=== PATIENT | female | born 1945 | race Caucasian/White ===

== ENCOUNTER 2017-06-03 14:39 | Inpatient (IN) | payer OTHER ==
[~2017-06-03] VITALS: Ht 157.5 cm; Wt 71.1 kg
[~2017-06-03 14:39] MED LIST: ACET325T96 PO; ALBUAER19 INH; ASPI81TA28 PO; CRS/10 PO; CYM/30 PO; FERR325T18 PO; HYDR50CA2 PO; INSDGI SC; KPP/1000 PO; LAMO100T16 PO; LAMO200T38 PO; LEVO25TA5 PO; LISI-461 PO; MAGN400T6 PO; MULT-506 PO; PRLSR20 PO; RISP0.5T3 PO; SITA50TA9 PO
[2017-06-03] MEDS ORDERED: INSDGIPEN SC (16:36)
[2017-06-03] MEDS ORDERED: SODIUM CHLORIDE 0.9% 1000ML 1,000 ML IV STA (16:51)
[2017-06-03 17:42] LABS: BASO % 1.1 %; BASO ABS # 0.03 K/uL (0-0.2); EOS % 2.5 %; HEMATOCRIT 26.7 % (37-47); IG% 0.7 %; LYMPH % 19.8 %; LYMPH ABS # 0.56 K/uL (1.2-3.4); MEAN CELL VOLUME 82.9 fL (80-100); MEAN CORPUSCULAR HEMOGLOBIN 24.8 pg (25-34); MEAN PLATELET VOLUME 9.6 fL (7.4-10.4); MONO % 7.8 %; NEUT % 68.1 %; PLATELET COUNT 137 K/uL (130-400); RED BLOOD COUNT 3.22 M/uL (4.2-5.4); WHITE BLOOD COUNT 2.83 K/uL (4.8-10.8)
--- NOTE | 2017-06-03 17:44 | DIAGNOSTIC IMAGING REPORT ---
CHEST ONE VIEW PORTABLE CLINICAL HISTORY: GI bleed. COMPARISON STUDY: Chest radiograph June 08, 2014. FINDINGS: 2 screws within the proximal right humerus are noted. There is no pneumothorax or pleural effusion. Cardiac size is normal. There is no evidence of pulmonary edema. Mild left lower lung opacities favor atelectasis. There are old bilateral rib fractures. IMPRESSION: Hazy left basilar opacity. Atelectasis or artifact is favored although consolidation could appear similar. Short-term follow-up PA and lateral chest radiographs in one month are recommended. Electronically signed by: Pelon Su M.D. 06/03/2017 5:43 PM Dictated Date/Time: 06/03/2017 5:41 PM
[2017-06-03 17:54] LABS: INR 1.1 (0.9-1.1); PROTHROMBIN TIME (PATIENT) 12.3 SECONDS (9.0-12.0)
[2017-06-03 18:14] LABS: ALT/SGPT 59 U/L (12-78); AST/SGOT 105 U/L (15-37); BLOOD UREA NITROGEN 6 mg/dl (7-18); BUN/CREATININE RATIO 6.9 (10-20); CALCIUM 8.6 mg/dl (8.5-10.1); CARBON DIOXIDE 26 mmol/L (21-32); CHLORIDE 102 mmol/L (98-107); GLUCOSE 151 mg/dl (70-99); SODIUM 138 mmol/L (136-145)
[2017-06-03 18:19] LABS: ALKALINE PHOSPHATASE 244 U/L (45-117); CKMB/CK RATIO 0.2 (0-3.0)
[2017-06-03 18:23] LABS: COMPLETE YES; HYPOCHROMIA PRESENT; LARGE PLATELETS 1+; MICROCYTOSIS PRESENT; POLYCHROMASIA 1+
--- NOTE | 2017-06-03 20:16 | EMERGENCY ROOM VISIT NOTE ---
History Report prepared by Sam: Paola Daley Under the Supervision of: Dr. Harsha Cason D.O. First contact with patient: 16:47 Chief Complaint: ALTERED MENTAL STATUS Stated Complaint: CAN'T WALK History of Present Illness The patient is a 71 year old female who presents to the Emergency Room with complaints of persistent fatigue for the past month. The patient's family reports that the patient has been increasingly fatigued over the past month. They note that the patient has a history of anemia. The patient's family reports that the patient has appeared paler as well. They note that the patient has been sleeping all day and every day. The patient's family states that the patient was scheduled for an appointment with her PCP today and was sent to the emergency department for further evaluation. They deny the patient seeing her PCP today, noting that they were just instructed to bring the patient to the emergency department. The patient's family notes that the patient has a history of seizures. The patient denies any headache, chest pain , shortness of breath, or abdominal pain. She denies any recent fall or trauma. The patient's family notes that the patient has had a previous iron transfusion. Source of History: patient, family Onset: past month Position: other (global) Quality: other (fatigue) Timing: other (persistent) Associated Symptoms: No headache, No chest pain, No SOB, No abdominal pain Note: Associated symptoms: sleeping all day, pale Review of Systems See HPI for pertinent positives & negatives. A total of 10 systems reviewed and were otherwise negative. Past Medical & Surgical Medical Problems: (1) Anemia (2) Bipolar (3) Cavernoma (4) DM (diabetes mellitus) (5) Dyslipidemia (6) Hyperthyroidism (7) Intracranial hemorrhage (8) Rib fractures (9) Seizure (10) Seizure disorder Family History FHx: diabetes FATHER FHx: hypertension FATHER FHx: myocardial infarction MOTHER FHx: stroke FATHER Social History Smoking Status: Former Smoker Alcohol Use: none Drug Use: none Marital Status: Housing Status: lives with significant other Occupation Status: retired Current/Historical Medications Scheduled Duloxetine HCl (Cymbalta), 30 MG PO QAM Ferrous Gluconate (Ferrous Gluconate), 324 MG PO TID Hydroxyzine Pamoate (Vistaril), 50 MG PO HS Insulin Glargine (Lantus Solostar), 50 UNITS SC QPM Lamotrigine (Lamictal), 200 MG PO HS Levetiracetam (Keppra), 1,000 MG PO BID Levothyroxine Sodium (Levothyroxine Sodium), 25 MCG PO QAM Lisinopril (Zestril), 10 MG PO QAM Magnesium Oxide (Mag-Ox), 400 MG PO DAILY Multivitamin (Multivitamin), 1 TAB PO QAM Omeprazole (Prilosec), 20 MG PO BID Risperidone (Risperdal), 0.5 MG PO BID Rosuvastatin Calcium (Crestor), 10 MG PO QAM Sitagliptin-Metformin Hcl (Janumet), 1 TAB PO BID Scheduled PRN Acetaminophen Tab (Tylenol), 650 MG PO for Pain Allergies Coded Allergies: Aspirin (Verified Allergy, Intermediate, INTESTINAL BLEEDING AND HIVES, ) Prednisone (Verified Allergy, Intermediate, HIVES; TREMORS, 04/29/16) Citalopram (Verified Allergy, Unknown, 04/29/16) Lidocaine (Verified Allergy, Unknown, edema face and lips, 04/29/16) Metoclopramide (Verified Allergy, Unknown, ?, 04/29/16) Onion (Verified Allergy, Unknown, 04/29/16) Simethicone (Verified Allergy, Unknown, ?, 06/08/14) Simvastatin (Verified Allergy, Unknown, ., 04/29/16) Valproic Acid and Related (Verified Allergy, Unknown, ., 04/29/16) Magnesium Citrate (Verified Adverse Reaction, Unknown, NAUSEA, 06/08/14) Physical Exam Vital Signs Date Time Temp Pulse Resp B/P (MAP) Pulse Ox O2 Delivery O2 Flow Rate FiO2 06/03/17 19:57 103 18 113/45 94 Room Air 06/03/17 18:39 80 16 117/51 97 Room Air 06/03/17 18:15 82 16 117/59 98 Room Air 06/03/17 17:28 83 18 105/54 97 Room Air 06/03/17 16:41 88 06/03/17 16:26 84 18 121/66 95 Room Air 06/03/17 14:47 36.8 97 20 94/53 98 Room Air Physical Exam CONSTITUTIONAL/VITAL SIGNS: Reviewed / noted above. GENERAL: Non-toxic in appearance. INTEGUMENTARY: Pale. Warm, dry. HEAD: Normocephalic. EYES: without scleral icterus or trauma. ENT/OROPHARYNX: Mucous membranes are dry. LYMPHADENOPATHY/NECK: Is supple without lymphadenopathy or meningismus. RESPIRATORY: Lungs clear and equal. CARDIOVASCULAR: Regular rate and rhythm. GI/ABDOMEN: Soft and nontender. No organomegaly or pulsatile mass. No rebound or guarding. Normal bowel sounds. RECTAL: Guaiac positive brown stool. EXTREMITIES: Warm and well perfused. BACK: No CVA tenderness. NEUROLOGICAL: Intact without focal deficits. PSYCHIATRIC: normal affect. MUSCULOSKELETAL: Normally developed with good muscle tone. Medical Decision & Procedures ER Provider Diagnostic Interpretation: X ray results and stated below per my interpretation and radiology interpretation. CHEST ONE VIEW PORTABLE CLINICAL HISTORY: GI bleed. COMPARISON STUDY: Chest radiograph June 08, 2014. FINDINGS: 2 screws within the proximal right humerus are noted. There is no pneumothorax or pleural effusion. Cardiac size is normal. There is no evidence of pulmonary edema. Mild left lower lung opacities favor atelectasis. There are old bilateral rib fractures. IMPRESSION: Hazy left basilar opacity. Atelectasis or artifact is favored although consolidation could appear similar. Short-term follow-up PA and lateral chest radiographs in one month are recommended. Electronically signed by: Pelon Su M.D. 06/03/2017 5:43 PM Dictated Date/Time: 06/03/2017 5:41 PM Laboratory Results 06/03/17 17:29 Red Blood Count 3.22, Mean Corpuscular Volume 82.9, Mean Corpuscular Hemoglobin 24.8, Mean Corpuscular Hemoglobin Concent 30.0, Mean Platelet Volume 9.6, Neutrophils (%) (Auto) 68.1, Lymphocytes (%) (Auto) 19.8, Monocytes (%) (Auto) 7.8, Eosinophils (%) (Auto) 2.5, Basophils (%) (Auto) 1.1, Neutrophils # (Auto) 1.93, Lymphocytes # (Auto) 0.56, Monocytes # (Auto) 0.22, Eosinophils # (Auto) 0.07, Basophils # (Auto) 0.03 06/03/17 17:29 Test 06/03/17 17:29 White Blood Count 2.83 K/uL (4.8-10.8) Red Blood Count 3.22 M/uL (4.2-5.4) Hemoglobin 8.0 g/dL (12.0-16.0) Hematocrit 26.7 % (37-47) Mean Corpuscular Volume 82.9 fL (80-100) Mean Corpuscular Hemoglobin 24.8 pg (25-34) Mean Corpuscular Hemoglobin Concent 30.0 g/dl (32-36) Platelet Count 137 K/uL (130-400) Mean Platelet Volume 9.6 fL (7.4-10.4) Neutrophils (%) (Auto) 68.1 % Lymphocytes (%) (Auto) 19.8 % Monocytes (%) (Auto) 7.8 % Eosinophils (%) (Auto) 2.5 % Basophils (%) (Auto) 1.1 % Neutrophils # (Auto) 1.93 K/uL (1.4-6.5) Lymphocytes # (Auto) 0.56 K/uL (1.2-3.4) Monocytes # (Auto) 0.22 K/uL (0.11-0.59) Eosinophils # (Auto) 0.07 K/uL (0-0.5) Basophils # (Auto) 0.03 K/uL (0-0.2) RDW Standard Deviation 57.1 fL (36.4-46.3) RDW Coefficient of Variation 18.7 % (11.5-14.5) Immature Granulocyte % (Auto) 0.7 % Immature Granulocyte # (Auto) 0.02 K/uL (0.00-0.02) Large Platelets 1+ Polychromasia 1+ Hypochromasia PRESENT Microcytosis PRESENT Prothrombin Time 12.3 SECONDS (9.0-12.0) Prothromb Time International Ratio 1.1 (0.9-1.1) Activated Partial Thromboplast Time 25.4 SECONDS (21.0-31.0) Partial Thromboplastin Ratio 1.0 Anion Gap 10.0 mmol/L (3-11) Estimated GFR () 86.6 Estimated GFR (Non- 74.7 BUN/Creatinine Ratio 6.9 (10-20) Calcium Level 8.6 mg/dl (8.5-10.1) Total Bilirubin 0.9 mg/dl (0.2-1) Direct Bilirubin 0.3 mg/dl (0-0.2) Aspartate Amino Transf (AST/SGOT) 105 U/L (15-37) Alanine Aminotransferase (ALT/SGPT) 59 U/L (12-78) Alkaline Phosphatase 244 U/L (45-117) Total Creatine Kinase 300 U/L (26-192) Creatine Kinase MB 0.6 ng/ml (0.5-3.6) Creatine Kinase MB Ratio 0.2 (0-3.0) Troponin I < 0.015 ng/ml (0-0.045) Total Protein 6.3 gm/dl (6.4-8.2) Albumin 3.3 gm/dl (3.4-5.0) Laboratory results as stated above per my review. Medications Administered Medications (Trade) Dose Ordered Sig/Mauricio Route Start Time Stop Time Status Last Admin Dose Admin Sodium Chloride 1,000 ml @ 200 mls/hr Q5H STAT IV 06/03/17 16:51 06/03/17 21:50 06/03/17 17:29 200 MLS/HR ECG Indication: weakness (fatigue) Rate (beats per minute): 85 Rhythm: normal sinus Findings: no acute ischemic change, no ectopy ED Course 1647: Previous medical records were reviewed. The patient was evaluated in room A9B. A complete history and physical examination was performed. 1650: Ordered Sodium Chloride 1000 ml @ 200 mls/hr IV. 1949: I reevaluated the patient and she is resting comfortably. I discussed the exam findings with her and her family and I discussed the treatment plan. She verbalized complete understanding and agreement. The patient will be evaluated for further treatment. 2006: I discussed the patients case with Christa Blankenship. He will evaluate the patient for further treatment. Medical Decision Differentials include: Acute coronary syndrome, myocardial infarction, CVA, TIA , anemia, infection, pneumonia, UTI, pyelonephritis, poor nutrition, dehydration , electrolyte disturbance, and hypoglycemia. Medication Reconciliation: I attest that I have personally reviewed the patient' s current medication list. Blood pressure Screening: Patient was found to have normal blood pressure on screening and does not require follow-up. This is a 71-year-old female who presents to the ED with a chief complaint of generalized fatigue and tiredness. The family also knows that she appears to be pale. This is somewhat chronic but worsening steadily. The patient's vital signs are normal. She does appear to be pale on exam. She has light brown and guaiac positive stools. Her hemoglobin is 8.0. She does have a history of GI bleeds in the past. An EKG shows a normal sinus rhythm. Troponin is negative. The rest of her blood work was relatively unremarkable. The patient was told the results of the test. She will be seen by the hospital service for inpatient evaluation. Consults Time Called: 1954 Consulting Physician: Christa Blankenship Returned Call: 2006 I discussed the patients case with Christa Blankenship. He will evaluate the patient for further treatment. Impression Primary Impression: Anemia Additional Impression: GI bleed Scribe Attestation The scribe's documentation has been prepared under my direction and personally reviewed by me in its entirety. I confirm that the note above accurately reflects all work, treatment, procedures, and medical decision making performed by me. Departure Information Dispostion Being Evaluated By Hospitalist Referrals No Doctor, Assigned (PCP) Problem Qualifiers
--- NOTE | 2017-06-03 20:42 | History and Physical ---
History & Physical Date & Time of Service: Jun 03, 2017 at 20:42 Chief Complaint: Can't Walk Primary Care Physician: Abhinav Sebastian III, M.D. History of Present Illness Source: patient Patient is a 69 yr old female with PMH of Diabetes, Hypertension,. Bipolar disorder, Seizure Disorder, S/P Subarachnoid hemorrhage, Chronic Anemia, Hypothyroidism and other problems presents with dark colored bloody stools since 2 weeks duration. Patient is a poor historian and no family member available. She reports she has been very tired lately and has been sleeping most of the day. Reports noticing dark colored bloody stools intermittently. She has been on Iron pills but denies taking Aspirin, NSAIDs. Denies any history of fever, chills, abd pain, diarrhea, urinary symptoms, SOB, chest pain , palpitations, cough, dizziness, headache, blurry vision. Patient has guaiac positive stools when tested in ED. Past Medical/Surgical History Medical Problems: (1) Anemia Status: Chronic (2) Bipolar Status: Chronic (3) Cavernoma Status: Chronic (4) DM (diabetes mellitus) Status: Chronic (5) Dyslipidemia Status: Chronic (6) Hyperthyroidism Status: Chronic (7) Intracranial hemorrhage Status: Chronic (8) Rib fractures Status: Chronic (9) Seizure Status: Resolved (10) Seizure disorder Status: Chronic Past Surgical History : Appendectomy Family History FHx: diabetes FATHER FHx: hypertension FATHER FHx: myocardial infarction MOTHER FHx: stroke FATHER Not contributory Social History Smoking Status: Former Smoker (Quit 2 months ago) Alcohol Use: none Drug Use: none Marital Status: Housing status: lives with family Occupational Status: retired Immunizations History of Influenza Vaccine: Yes Influenza Vaccine Date: Sep 02, 2009 History of Tetanus Vaccine?: No History of Pneumococcal: Yes Pneumococcal Date: Sep 02, 2009 History of Hepatitis B Vaccine: No Multi-Drug Resistant Organisms History of MDRO: No Allergies Coded Allergies: Aspirin (Verified Allergy, Intermediate, INTESTINAL BLEEDING AND HIVES, ) Prednisone (Verified Allergy, Intermediate, HIVES; TREMORS, 04/29/16) Citalopram (Verified Allergy, Unknown, 04/29/16) Lidocaine (Verified Allergy, Unknown, edema face and lips, 04/29/16) Metoclopramide (Verified Allergy, Unknown, ?, 04/29/16) Onion (Verified Allergy, Unknown, 04/29/16) Simethicone (Verified Allergy, Unknown, ?, 06/08/14) Simvastatin (Verified Allergy, Unknown, ., 04/29/16) Valproic Acid and Related (Verified Allergy, Unknown, ., 04/29/16) Magnesium Citrate (Verified Adverse Reaction, Unknown, NAUSEA, 06/08/14) Home Medications Scheduled Duloxetine HCl (Cymbalta), 30 MG PO QAM Ferrous Gluconate (Ferrous Gluconate), 324 MG PO TID Hydroxyzine Pamoate (Vistaril), 50 MG PO HS Insulin Glargine (Lantus Solostar), 50 UNITS SC QPM Lamotrigine (Lamictal), 200 MG PO HS Levetiracetam (Keppra), 1,000 MG PO BID Levothyroxine Sodium (Levothyroxine Sodium), 25 MCG PO QAM Lisinopril (Zestril), 10 MG PO QAM Magnesium Oxide (Mag-Ox), 400 MG PO DAILY Multivitamin (Multivitamin), 1 TAB PO QAM Omeprazole (Prilosec), 20 MG PO BID Risperidone (Risperdal), 0.5 MG PO BID Rosuvastatin Calcium (Crestor), 10 MG PO QAM Sitagliptin-Metformin Hcl (Janumet), 1 TAB PO BID Scheduled PRN Acetaminophen Tab (Tylenol), 650 MG PO for Pain Review of Systems See HPI for pertinent positives & negatives. A total of 10 systems reviewed and were otherwise negative. Physical Exam Vital Signs Date Time Temp Pulse Resp B/P (MAP) Pulse Ox O2 Delivery O2 Flow Rate FiO2 06/03/17 19:57 103 18 113/45 94 Room Air 06/03/17 18:39 80 16 117/51 97 Room Air 06/03/17 18:15 82 16 117/59 98 Room Air 06/03/17 17:28 83 18 105/54 97 Room Air 06/03/17 16:41 88 06/03/17 16:26 84 18 121/66 95 Room Air 06/03/17 14:47 36.8 97 20 94/53 98 Room Air General Appearance: WD/WN, no apparent distress Head: normocephalic, atraumatic Eyes: normal inspection, PERRL, + pertinent finding (+Pallor) ENT: normal ENT inspection, hearing grossly normal Neck: supple, trachea midline Respiratory/Chest: chest non-tender, lungs clear, no respiratory distress, no accessory muscle use, + pertinent finding (Mild decreased breath sounds at bases ) Cardiovascular: regular rate, rhythm, no edema, no murmur Abdomen/GI: normal bowel sounds, non tender, soft Back: normal inspection Extremities/Musculoskelatal: normal inspection, no pedal edema 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, alert, oriented x 3, + pertinent finding (Grossly no focal deficits) Skin: normal color, warm/dry, + pallor Diagnostics Laboratory Results Results Past 24 Hours Test 06/03/17 17:29 Range/Units White Blood Count 2.83 4.8-10.8 K/uL Red Blood Count 3.22 4.2-5.4 M/uL Hemoglobin 8.0 12.0-16.0 g/dL Hematocrit 26.7 37-47 % Mean Corpuscular Volume 82.9 80-100 fL Mean Corpuscular Hemoglobin 24.8 25-34 pg Mean Corpuscular Hemoglobin Concent 30.0 32-36 g/dl Platelet Count 137 130-400 K/uL Mean Platelet Volume 9.6 7.4-10.4 fL Neutrophils (%) (Auto) 68.1 % Lymphocytes (%) (Auto) 19.8 % Monocytes (%) (Auto) 7.8 % Eosinophils (%) (Auto) 2.5 % Basophils (%) (Auto) 1.1 % Neutrophils # (Auto) 1.93 1.4-6.5 K/uL Lymphocytes # (Auto) 0.56 1.2-3.4 K/uL Monocytes # (Auto) 0.22 0.11-0.59 K/uL Eosinophils # (Auto) 0.07 0-0.5 K/uL Basophils # (Auto) 0.03 0-0.2 K/uL RDW Standard Deviation 57.1 36.4-46.3 fL RDW Coefficient of Variation 18.7 11.5-14.5 % Immature Granulocyte % (Auto) 0.7 % Immature Granulocyte # (Auto) 0.02 0.00-0.02 K/uL Large Platelets 1+ Polychromasia 1+ Hypochromasia PRESENT Microcytosis PRESENT Prothrombin Time 12.3 9.0-12.0 SECONDS Prothromb Time International Ratio 1.1 0.9-1.1 Activated Partial Thromboplast Time 25.4 21.0-31.0 SECONDS Partial Thromboplastin Ratio 1.0 Sodium Level 138 136-145 mmol/L Potassium Level 4.0 3.5-5.1 mmol/L Chloride Level 102 98-107 mmol/L Carbon Dioxide Level 26 21-32 mmol/L Anion Gap 10.0 3-11 mmol/L Blood Urea Nitrogen 6 7-18 mg/dl Creatinine 0.80 0.60-1.20 mg/dl Estimated GFR () 86.6 Estimated GFR (Non- 74.7 BUN/Creatinine Ratio 6.9 10-20 Random Glucose 151 70-99 mg/dl Calcium Level 8.6 8.5-10.1 mg/dl Total Bilirubin 0.9 0.2-1 mg/dl Direct Bilirubin 0.3 0-0.2 mg/dl Aspartate Amino Transf (AST/SGOT) 105 15-37 U/L Alanine Aminotransferase (ALT/SGPT) 59 12-78 U/L Alkaline Phosphatase 244 45-117 U/L Total Creatine Kinase 300 26-192 U/L Creatine Kinase MB 0.6 0.5-3.6 ng/ml Creatine Kinase MB Ratio 0.2 0-3.0 Troponin I < 0.015 0-0.045 ng/ml Total Protein 6.3 6.4-8.2 gm/dl Albumin 3.3 3.4-5.0 gm/dl Diagnostic Radiology CXR: Hazy left basilar opacity. Atelectasis or artifact is favored although consolidation could appear similar. Short-term follow-up PA and lateral chest radiographs in one month are recommended. EKG EKG:Normal sinus rhythm, No signs of acute ischemia Impression Assessment and Plan Symptomatic Anemia/Melena: H/O gastric ulcers on prior EGDs Hb:8.0 currently. Last Hb in 03/2016: 9.9 Reports dark bloody stools intermittently, tired and has guaiac positive stools Start on IV Protonix BID Npo for now Transfuse 1 unit PRBCs Monitor H&H, Transfuse PRN Will consult GI Check Iron panel, Vitamin B 12 Avoid Aspirin/NSAIDs Hold oral Iron therapy for now Elevated LFTs: Denies any abdominal pain Unclear source; likely meds Hold Crestor Consider Imaging if necessary DM II: Will hold home oral meds Takes 50 units Lantus at bedtime at home Start ISS, Lantus 20 inuts QHS as NPO Hypothyroidism: Continue levothyroxine HTN Stable Plan to resume lisinopril when appropriate Monitor H/O seizure disorder: Continue home meds No acute issues H/O subarachnoid Hemorrhage: No acute issues H/O Bipolar disorder: Stable Continue home meds Vistaril on hold as patient has been sleepy lately DVT Px: SCDs: Re: Evaluating for acute blood loss Code Status: Full code Disposition: Monitor in Tele
[2017-06-03] MEDS ORDERED: ACETAMINOPHEN 325 MG TAB PO PRN (21:15)
[2017-06-03] MEDS ORDERED: ONDANSETRON INJ 2 MG/ML 2 ML VIAL IV PRN (21:15)
[2017-06-03] MEDS ORDERED: DEXTROSE 50% 50 ML SYR IV PRN (21:30)
[2017-06-03] MEDS ORDERED: GLUCOSE 40% GEL 15 GM TUBE PO PRN (21:30)
[2017-06-03] MEDS ORDERED: GLUCOSE 10 TABS/TUBE PO PRN (21:30)
[2017-06-03] MEDS ORDERED: GLUCAGON FOR INJ 1 MG VIAL SQ PRN (21:30)
[2017-06-03 22:17] VITALS: BP 123/94; PULSE 94; TEMP 36.9; O2SAT 97
[2017-06-03 22:21] VITALS: BP 116/71; PULSE 85; TEMP 36.5; O2SAT 97
[2017-06-03 22:32] VITALS: BP 131/60; PULSE 87; TEMP 36.5; O2SAT 96
[2017-06-03 23:01] VITALS: BP 138/71; PULSE 79; TEMP 36.7; O2SAT 97
[2017-06-03] MEDS: INSULIN ASPART 100 UNITS/ML 3 ML PEN SC SCH (23:45)
[2017-06-03 23:48] VITALS: BP 143/81; PULSE 88; TEMP 36.5; O2SAT 98; Ht 157.5 cm; Wt 71.1 kg
[2017-06-04] VITALS (8 sets, daily range): BP systolic 137–149; BP diastolic 75–83; PULSE 78–90; TEMP 36.5–37; O2SAT 92–98
[2017-06-04] MEDS: RISPERIDONE 0.5 MG TAB PO SCH ×3 (00:29→21:15)
[2017-06-04] MEDS: LEVETIRACETAM 500 MG TAB PO SCH ×3 (00:30→21:14)
[2017-06-04] MEDS: PANTOprazole INJ 40 MG in SYRINGE 0 ML IV SCH ×3 (00:30→21:14)
[2017-06-04] MEDS: SODIUM CHLORIDE 0.9% 1000ML 1,000 ML IV SCH ×2 (00:31→13:12)
[2017-06-04] MEDS: INSULIN GLARGINE SOLOSTAR 100 UNITS/ML 3 ML PEN SC SCH ×2 (00:32→21:19)
[2017-06-04 03:59] LABS: HEMATOCRIT 29.5 % (37-47)
[2017-06-04 04:33] LABS: FERRITIN 12.9 ng/ml (8.0-388.0)
[2017-06-04] MEDS: LEVOTHYROXINE 25 MCG TAB PO SCH (06:21)
[2017-06-04] MEDS: DULOXETINE (CYMBALTA) 30 MG CAP PO SCH (07:39)
[2017-06-04] MEDS: INSULIN ASPART 100 UNITS/ML 3 ML PEN SC SCH ×4 (08:29→21:00)
--- NOTE | 2017-06-04 11:40 | Gastrointestinal Consultation ---
Gastrointestinal Consultation Date of Consultation: Jun 04, 2017 Attending Physician: Kelly Cardona Consulting Physician: Lenin Harris Reason for Consultation: GI bleed; symptomatic anemia History of Present Illness Patient is a 71 year old female w PMHx of DM, HTN, bipolar disorder, seizure disorder, subarachnoid hemorrhage, chronic anemia, hypothyroidism, dyslipidemia , hyperthyroidism who presented to ED w c/o weakness, can't walk. She had been very sleepy most day, and noticing dark colored stools x 2 weeks. She is on iron supplements. Guaiac stools test in ED positive. Her labs showed she's anemic w Hgb around 8, given 1U PRBC overnight and improved to 8.5. No coagulopathy, Iron studies, B12, FA levels normal. CXR showed signs of atelectasis. She has hx of PUD in 2013 and denies ASA/NSAIDs/Steroids uses recently. Also hx of AVMs treated w [facility] in the past w series of endoscopies since 2005. Last EGD/colonoscopy on 08/2016 w [facility] treatment of the AVMs. VCE in 2008 negative. Past Medical/Surgical History Medical Problems: (1) Anemia Status: Chronic (2) GI bleed Status: Acute Past Medical History: See above Past Surgical History: Appendectomy Family History FHx: diabetes FATHER FHx: hypertension FATHER FHx: myocardial infarction MOTHER FHx: stroke FATHER Social History Smoking Status: Current Some Day Smoker Alcohol Use: none Drug Use: none Marital Status: Housing Status: lives with significant other Occupation Status: retired Allergies Coded Allergies: Aspirin (Verified Allergy, Intermediate, INTESTINAL BLEEDING AND HIVES, ) Prednisone (Verified Allergy, Intermediate, HIVES; TREMORS, 04/29/16) Citalopram (Verified Allergy, Unknown, 04/29/16) Lidocaine (Verified Allergy, Unknown, edema face and lips, 04/29/16) Metoclopramide (Verified Allergy, Unknown, ?, 04/29/16) Onion (Verified Allergy, Unknown, 04/29/16) Simethicone (Verified Allergy, Unknown, ?, 06/08/14) Simvastatin (Verified Allergy, Unknown, ., 04/29/16) Valproic Acid and Related (Verified Allergy, Unknown, ., 04/29/16) Magnesium Citrate (Verified Adverse Reaction, Unknown, NAUSEA, 06/08/14) Current Medications Home Meds and Scripts Medications Dose Route/Sig Max Daily Dose Days Date Category Lantus Solostar (Insulin Glargine) 100 Unit/Ml Inj 50 Units SC QPM 06/03/17 Reported Janumet (Sitagliptin-Metformin Hcl) 1 Tab Tab 1 Tab PO BID 04/29/16 Reported Lamictal (Lamotrigine) 200 Mg Tab 200 Mg PO HS 06/12/14 Rx Mag-Ox (Magnesium Oxide) 400 Mg Tab 400 Mg PO DAILY 06/09/14 Reported Vistaril (Hydroxyzine Pamoate) 50 Mg Cap 50 Mg PO HS 06/05/14 Reported Risperdal (Risperidone) 0.5 Mg Tab 0.5 Mg PO BID 06/05/14 Reported Tylenol (Acetaminophen) 325 Mg Tab 650 Mg PO PRN 06/05/14 Reported Cymbalta (Duloxetine HCl) 30 Mg Cap 30 Mg PO QAM 04/10/14 Reported Levothyroxine Sodium 25 Mcg Tab 25 Mcg PO QAM 03/26/14 Reported Multivitamin (Multivitamins) Tab 1 Tab PO QAM 03/26/14 Reported Zestril (Lisinopril) 10 Mg Tab 10 Mg PO QAM 03/26/14 Reported Keppra (Levetiracetam) 1,000 Mg Tab 1,000 Mg PO BID 03/26/14 Reported Crestor (Rosuvastatin Calcium) 10 Mg Tab 10 Mg PO QAM 03/26/14 Reported Ferrous Gluconate 324 Mg Tab 324 Mg PO TID 03/13/14 Reported Prilosec (Omeprazole) 20 Mg Capcr 20 Mg PO BID 09/02/09 Reported Unable (Miscellaneous Information) . 12/03/09 Reported Review of Systems Constitutional: + weakness, No fever, No chills Respiratory: No cough, No shortness of breath Cardiac: No chest pain Abdomen: + see HPI, + GI bleeding, No pain, No nausea, No vomiting Endo: + fatigue Physical Exam Date Time Temp Pulse Resp B/P (MAP) Pulse Ox O2 Delivery O2 Flow Rate FiO2 06/04/17 11:24 36.5 86 14 143/81 (101) 97 Room Air 06/04/17 08:08 36.8 90 16 141/82 (101) 96 Room Air 06/04/17 08:00 Room Air 06/04/17 04:00 37.0 89 14 146/75 (98) 92 Room Air 06/04/17 04:00 92 Room Air 06/04/17 00:00 36.6 84 20 138/77 97 06/03/17 23:48 36.5 88 16 143/81 98 Room Air 06/03/17 23:01 36.7 79 16 138/71 97 06/03/17 22:32 36.5 87 16 131/60 96 06/03/17 22:24 86 16 116/71 97 Room Air 06/03/17 22:21 36.5 85 18 116/71 97 06/03/17 22:17 36.9 94 16 123/94 97 06/03/17 21:58 85 18 122/84 98 Room Air 06/03/17 21:01 79 18 120/73 96 Room Air 06/03/17 19:57 103 18 113/45 94 Room Air 06/03/17 18:39 80 16 117/51 97 Room Air 06/03/17 18:15 82 16 117/59 98 Room Air 06/03/17 17:28 83 18 105/54 97 Room Air 06/03/17 16:41 88 06/03/17 16:26 84 18 121/66 95 Room Air 06/03/17 14:47 36.8 97 20 94/53 98 Room Air General Appearance: WD/WN, no apparent distress Eyes: normal inspection, PERRL, EOMI Neck: supple, no JVD, trachea midline Respiratory/Chest: no respiratory distress, no accessory muscle use, + decreased breath sounds Cardiovascular: regular rate, rhythm, no gallop, no murmur Abdomen: normal bowel sounds, non tender, soft Extremities: normal inspection, no pedal edema, no calf tenderness Neurologic/Psych: alert, oriented x 3, + depressed affect Skin: normal color, no jaundice, no rash Laboratory Results Last 24 Hours Test 06/03/17 17:29 06/04/17 00:14 06/04/17 03:31 06/04/17 06:06 White Blood Count 2.83 K/uL Red Blood Count 3.22 M/uL Hemoglobin 8.0 g/dL 8.8 g/dL 8.5 g/dL Hematocrit 26.7 % 29.5 % 29.0 % Mean Corpuscular Volume 82.9 fL Mean Corpuscular Hemoglobin 24.8 pg Mean Corpuscular Hemoglobin Concent 30.0 g/dl Platelet Count 137 K/uL Mean Platelet Volume 9.6 fL Neutrophils (%) (Auto) 68.1 % Lymphocytes (%) (Auto) 19.8 % Monocytes (%) (Auto) 7.8 % Eosinophils (%) (Auto) 2.5 % Basophils (%) (Auto) 1.1 % Neutrophils # (Auto) 1.93 K/uL Lymphocytes # (Auto) 0.56 K/uL Monocytes # (Auto) 0.22 K/uL Eosinophils # (Auto) 0.07 K/uL Basophils # (Auto) 0.03 K/uL RDW Standard Deviation 57.1 fL RDW Coefficient of Variation 18.7 % Immature Granulocyte % (Auto) 0.7 % Immature Granulocyte # (Auto) 0.02 K/uL Large Platelets 1+ Polychromasia 1+ Hypochromasia PRESENT Microcytosis PRESENT Prothrombin Time 12.3 SECONDS Prothromb Time International Ratio 1.1 Activated Partial Thromboplast Time 25.4 SECONDS Partial Thromboplastin Ratio 1.0 Sodium Level 138 mmol/L Potassium Level 4.0 mmol/L Chloride Level 102 mmol/L Carbon Dioxide Level 26 mmol/L Anion Gap 10.0 mmol/L Blood Urea Nitrogen 6 mg/dl Creatinine 0.80 mg/dl Estimated GFR () 86.6 Estimated GFR (Non- 74.7 BUN/Creatinine Ratio 6.9 Random Glucose 151 mg/dl Calcium Level 8.6 mg/dl Total Bilirubin 0.9 mg/dl 1.5 mg/dl Direct Bilirubin 0.3 mg/dl 0.6 mg/dl Aspartate Amino Transf (AST/SGOT) 105 U/L 82 U/L Alanine Aminotransferase (ALT/SGPT) 59 U/L 50 U/L Alkaline Phosphatase 244 U/L 206 U/L Total Creatine Kinase 300 U/L Creatine Kinase MB 0.6 ng/ml Creatine Kinase MB Ratio 0.2 Troponin I < 0.015 ng/ml Total Protein 6.3 gm/dl 5.7 gm/dl Albumin 3.3 gm/dl 3.0 gm/dl Bedside Glucose 146 mg/dl Iron Level 120 mcg/dl Total Iron Binding Capacity 308 mcg/dl Ferritin 12.9 ng/ml Vitamin B12 Level 598 pg/mL Folate 21.78 ng/mL Test 06/04/17 07:56 Bedside Glucose 135 mg/dl Impression Patient is a 71 year old female w symptomatic anemia, found to have guaiac positive stools. Hx of AVMs found in EGD/Colonoscopy evals, negative VCE in 2008. Last endoscopic eval and treatment was just on August 2016 Plan - Monitor H/H and transfuse prn - Start CL diet - Continue Protonix 40mg IV BID. - Will defer repeat endoscopic evals at this time as suspect likely AVM bleeds causing anemia. These will usually resolve by itself and pt needs supportive care (ie. blood transfusions). Though if continued melena, worsening anemia, will reconsider possible need of EGD/Colonoscopy evals. ATTESTATION: I have performed a history and physical examination of this patient and reviewed the electronic record. Specifically, on physical examination there is no abdominal tenderness and no sign of ongoing bleeding. I have discussed the case with EDWARDO Gant. The above note reflects my findings, conclusions , and recommendations. Lenin Harris MD
[2017-06-04 14:15] LABS: HEMATOCRIT 28.7 % (37-47)
--- NOTE | 2017-06-04 17:35 | Progress Note ---
Medicine Progress Note Date & Time of Visit: Jun 04, 2017 at 17:19. Subjective Patient denies any complaints this AM of dizziness/lightheadedness or SOB. No overnight events noted. Per staff patient was confused this AM. Patient reports melena ongoing this AM. Has been NPO. No complaints of abdominal pain, CP, or CHAUDHARY. Objective Last 8 Hrs Date Time Temp Pulse Resp B/P (MAP) Pulse Ox O2 Delivery O2 Flow Rate FiO2 06/04/17 15:18 36.8 80 18 142/83 (102) 95 Room Air 06/04/17 12:00 Room Air 06/04/17 11:24 36.5 86 14 143/81 (101) 97 Room Air Physical Exam: GENERAL: Patient is in no acute distress. HEENT: No acute trauma, normocephalic, mucous membranes moist, no nasal congestion, no scleral icterus. NECK: No stridor, trachea is midline. LUNGS: Clear to auscultation bilaterally, no wheeze, no rhonchi, breath sounds equal. HEART: Without murmurs gallops or rubs, regular rate and rhythm. ABDOMEN: Soft, nontender, bowel sounds positive EXTREMITIES: No cyanosis or edema NEUROLOGIC: Oriented, no acute motor or sensory deficits, no focal weakness. SKIN: No rash, no jaundice, no diaphoresis. Laboratory Results: Last 24 Hours Test 06/03/17 17:29 06/04/17 00:14 06/04/17 03:31 06/04/17 06:06 White Blood Count 2.83 K/uL Red Blood Count 3.22 M/uL Hemoglobin 8.0 g/dL 8.8 g/dL 8.5 g/dL Hematocrit 26.7 % 29.5 % 29.0 % Mean Corpuscular Volume 82.9 fL Mean Corpuscular Hemoglobin 24.8 pg Mean Corpuscular Hemoglobin Concent 30.0 g/dl Platelet Count 137 K/uL Mean Platelet Volume 9.6 fL Neutrophils (%) (Auto) 68.1 % Lymphocytes (%) (Auto) 19.8 % Monocytes (%) (Auto) 7.8 % Eosinophils (%) (Auto) 2.5 % Basophils (%) (Auto) 1.1 % Neutrophils # (Auto) 1.93 K/uL Lymphocytes # (Auto) 0.56 K/uL Monocytes # (Auto) 0.22 K/uL Eosinophils # (Auto) 0.07 K/uL Basophils # (Auto) 0.03 K/uL RDW Standard Deviation 57.1 fL RDW Coefficient of Variation 18.7 % Immature Granulocyte % (Auto) 0.7 % Immature Granulocyte # (Auto) 0.02 K/uL Large Platelets 1+ Polychromasia 1+ Hypochromasia PRESENT Microcytosis PRESENT Prothrombin Time 12.3 SECONDS Prothromb Time International Ratio 1.1 Activated Partial Thromboplast Time 25.4 SECONDS Partial Thromboplastin Ratio 1.0 Sodium Level 138 mmol/L Potassium Level 4.0 mmol/L Chloride Level 102 mmol/L Carbon Dioxide Level 26 mmol/L Anion Gap 10.0 mmol/L Blood Urea Nitrogen 6 mg/dl Creatinine 0.80 mg/dl Estimated GFR () 86.6 Estimated GFR (Non- 74.7 BUN/Creatinine Ratio 6.9 Random Glucose 151 mg/dl Calcium Level 8.6 mg/dl Total Bilirubin 0.9 mg/dl 1.5 mg/dl Direct Bilirubin 0.3 mg/dl 0.6 mg/dl Aspartate Amino Transf (AST/SGOT) 105 U/L 82 U/L Alanine Aminotransferase (ALT/SGPT) 59 U/L 50 U/L Alkaline Phosphatase 244 U/L 206 U/L Total Creatine Kinase 300 U/L Creatine Kinase MB 0.6 ng/ml Creatine Kinase MB Ratio 0.2 Troponin I < 0.015 ng/ml Total Protein 6.3 gm/dl 5.7 gm/dl Albumin 3.3 gm/dl 3.0 gm/dl Bedside Glucose 146 mg/dl Iron Level 120 mcg/dl Total Iron Binding Capacity 308 mcg/dl Ferritin 12.9 ng/ml Vitamin B12 Level 598 pg/mL Folate 21.78 ng/mL Test 06/04/17 07:56 06/04/17 11:35 06/04/17 14:07 06/04/17 16:44 Bedside Glucose 135 mg/dl 196 mg/dl 91 mg/dl Hemoglobin 8.8 g/dL Hematocrit 28.7 % Assessment & Plan Anemia with GI Bleed: -presenting with symptomatic anemia/tired/fatigue and melena -has a known hx of AVMs and gastric ulcer per prior endoscopy -Hb:8.0-->8.5 post transfusion -Baseline/Last Hb from 03/2016: 9.9 -intermittently had melena and dark blood in stools -complains of loss of energy/tiredness -guaiac positive in ER -on IV Protonix BID -GI consulted, patient started on clear liquids with further monitoring and no urgent need for endoscopy -s/p transfusion with 1 unit PRBCs -continue to monitor H&H closely -Iron panel, Vitamin B 12 normal -oral Iron therapy held for now -avoid NSAIDs Elevated LFTs: -denies abdominal pain or jaundice prior to admission -now trending down -likely medication related; continue to hold statin for now -can obtain US if not improving DM Type II: -hold oral meds while hospitalized -continue correction scale insulin + lower dose Lantus until patient taking in usual PO Hypothyroidism: -continue levothyroxine HTN: -hold lisinopril for now -monitor Seizure disorder: -continue home meds Hx of Subarachnoid hemorrhage: -No acute issues Bipolar disorder: -no acute issues -continue home meds, except vistaril as patient mentation was decreased DVT Prophylaxis: -SCDs only as evaluating for acute blood loss Current Inpatient Medications: Current Inpatient Medications Medications (Trade) Dose Ordered Sig/Mauricio Route Start Time Stop Time Status Last Admin Dose Admin Sodium Chloride 1,000 ml @ 75 mls/hr [id number] IV 06/03/17 23:45 07/03/17 23:44 06/04/17 13:12 75 MLS/HR Acetaminophen (Tylenol Tab) 650 mg Q4H PRN PO 06/03/17 21:15 07/03/17 21:14 Ondansetron HCl (Zofran Inj) 4 mg Q6H PRN IV 06/03/17 21:15 07/03/17 21:14 Pantoprazole Sodium 40 mg/ Syringe 10 ml @ 5 mls/min DAILY@ IV 06/03/17 23:45 07/03/17 23:44 06/04/17 07:36 5 MLS/MIN Insulin Aspart (novoLOG ASPART) SLIDING SCALE If C... ACHS SC 06/03/17 23:45 07/03/17 23:44 06/04/17 13:09 2 UNITS Glucose (Glucose 40% Gel) 15-30 GRAMS 15 GRAMS... UD PRN PO 06/03/17 21:30 07/03/17 21:29 Glucose (Glucose Chew Tab) 4-8 Tablets 4 Tabl... UD PRN PO 06/03/17 21:30 07/03/17 21:29 Dextrose (Dextrose 50% 50ML Syringe) 25-50ML OF 50% DW IV FOR... UD PRN IV 06/03/17 21:30 07/03/17 21:29 Glucagon (Glucagon Inj) 1 mg UD PRN SQ 06/03/17 21:30 07/03/17 21:29 Duloxetine HCl (Cymbalta Cap) 30 mg QAM PO 06/04/17 09:00 07/04/17 08:59 06/04/17 07:39 30 MG Insulin Glargine (Lantus Solostar Pen) 20 units QPM SC 06/03/17 23:45 07/03/17 23:44 06/04/17 00:32 20 UNITS Lamotrigine (Lamictal Tab) 200 mg HS PO 06/03/17 23:45 07/03/17 23:44 06/04/17 00:29 200 MG Levetiracetam (Keppra Tab) 1,000 mg BID PO 06/03/17 23:45 07/03/17 23:44 06/04/17 07:40 1,000 MG Levothyroxine Sodium (Synthroid Tab) 25 mcg DAILYBB PO 06/04/17 06:30 07/04/17 06:29 06/04/17 06:21 25 MCG Risperidone (Risperdal Tab) 0.5 mg BID PO 06/03/17 23:45 07/03/17 23:44 06/04/17 07:41 0.5 MG Lamotrigine (Lamictal Tab) 100 mg QAM PO 06/04/17 09:00 07/04/17 08:59 06/04/17 07:40 100 MG
[2017-06-04 22:29] LABS: HEMATOCRIT 28.8 % (37-47)
[2017-06-05] VITALS (7 sets, daily range): BP systolic 143–172; BP diastolic 78–93; PULSE 83–91; TEMP 36.5–37.3; O2SAT 96–97
[2017-06-05] MEDS: SODIUM CHLORIDE 0.9% 1000ML 1,000 ML IV SCH ×2 (02:39→15:35)
[2017-06-05] MEDS: LEVOTHYROXINE 25 MCG TAB PO SCH (05:53)
[2017-06-05 06:10] LABS: HEMATOCRIT 28.9 % (37-47); MEAN CORPUSCULAR HEMOGLOBIN 25.3 pg (25-34); MEAN CORPUSCULAR HGB CONC 30.4 g/dl (32-36); RED BLOOD COUNT 3.48 M/uL (4.2-5.4); WHITE BLOOD COUNT 2.24 K/uL (4.8-10.8)
[2017-06-05] MEDS: INSULIN ASPART 100 UNITS/ML 3 ML PEN SC SCH ×4 (06:30→20:29)
[2017-06-05 06:49] LABS: BUN/CREATININE RATIO 6.2 (10-20); CALCIUM 7.9 mg/dl (8.5-10.1); CREATININE 0.4 mg/dl (0.60-1.20); POTASSIUM 3.3 mmol/L (3.5-5.1)
[2017-06-05 07:08] LABS: PLATELET COUNT 96 K/uL (130-400); PLT ESTIMATE DECREASED
[2017-06-05] MEDS: PANTOprazole INJ 40 MG in SYRINGE 0 ML IV SCH ×2 (07:51→20:39)
[2017-06-05] MEDS: DULOXETINE (CYMBALTA) 30 MG CAP PO SCH (07:51)
[2017-06-05] MEDS: RISPERIDONE 0.5 MG TAB PO SCH ×2 (07:52→20:40)
[2017-06-05] MEDS: LEVETIRACETAM 500 MG TAB PO SCH ×2 (07:52→20:40)
[2017-06-05] MEDS ORDERED: POTASSIUM CHLORIDE 10 MEQ TABCR PO ONE (09:00)
--- NOTE | 2017-06-05 12:08 | Gastroenterology Progress Note ---
Progress Note Date of Service: Jun 05, 2017 Subjective Pt evaluation today including: conversation w/ patient, physical exam, chart review, lab review, review of inpatient medication list Pt said last night had normal colored BM. Denies any abd pain, n/v, tolerating CL diet well. Review of Systems Constitutional: No fever, No chills Respiratory: No cough, No shortness of breath Cardiac: No chest pain Abdomen: No pain, No nausea, No vomiting, No GI bleeding Medications Current Inpatient Medications Medications (Trade) Dose Ordered Sig/Mauricio Route Start Time Stop Time Status Last Admin Dose Admin Sodium Chloride 1,000 ml @ 75 mls/hr [id number] IV 06/03/17 23:45 07/03/17 23:44 06/05/17 02:39 75 MLS/HR Acetaminophen (Tylenol Tab) 650 mg Q4H PRN PO 06/03/17 21:15 07/03/17 21:14 Ondansetron HCl (Zofran Inj) 4 mg Q6H PRN IV 06/03/17 21:15 07/03/17 21:14 Pantoprazole Sodium 40 mg/ Syringe 10 ml @ 5 mls/min DAILY@ IV 06/03/17 23:45 07/03/17 23:44 06/05/17 07:51 5 MLS/MIN Insulin Aspart (novoLOG ASPART) SLIDING SCALE If C... ACHS SC 06/03/17 23:45 07/03/17 23:44 06/04/17 13:09 2 UNITS Glucose (Glucose 40% Gel) 15-30 GRAMS 15 GRAMS... UD PRN PO 06/03/17 21:30 07/03/17 21:29 Glucose (Glucose Chew Tab) 4-8 Tablets 4 Tabl... UD PRN PO 06/03/17 21:30 07/03/17 21:29 Dextrose (Dextrose 50% 50ML Syringe) 25-50ML OF 50% DW IV FOR... UD PRN IV 06/03/17 21:30 07/03/17 21:29 Glucagon (Glucagon Inj) 1 mg UD PRN SQ 06/03/17 21:30 07/03/17 21:29 Duloxetine HCl (Cymbalta Cap) 30 mg QAM PO 06/04/17 09:00 07/04/17 08:59 7/7/17 07:51 30 MG Insulin Glargine (Lantus Solostar Pen) 20 units QPM SC 06/03/17 23:45 07/03/17 23:44 06/04/17 21:19 20 UNITS Lamotrigine (Lamictal Tab) 200 mg HS PO 06/03/17 23:45 07/03/17 23:44 06/04/17 21:15 200 MG Levetiracetam (Keppra Tab) 1,000 mg BID PO 06/03/17 23:45 07/03/17 23:44 06/05/17 07:52 1,000 MG Levothyroxine Sodium (Synthroid Tab) 25 mcg DAILYBB PO 06/04/17 06:30 07/04/17 06:29 06/05/17 05:53 25 MCG Risperidone (Risperdal Tab) 0.5 mg BID PO 06/03/17 23:45 07/03/17 23:44 06/05/17 07:52 0.5 MG Lamotrigine (Lamictal Tab) 100 mg QAM PO 06/04/17 09:00 07/04/17 08:59 06/05/17 07:52 100 MG Objective Vital Signs Date Time Temp Pulse Resp B/P (MAP) Pulse Ox O2 Delivery O2 Flow Rate FiO2 06/05/17 11:51 37.3 86 20 160/93 (115) 97 Room Air 06/05/17 08:00 Room Air 06/05/17 07:34 36.8 85 20 172/79 (110) 96 Room Air 06/05/17 04:12 36.7 85 18 148/78 (101) 96 Room Air 06/05/17 04:00 Room Air 06/05/17 00:00 Room Air 06/04/17 23:03 36.6 78 18 137/83 (101) 97 Room Air 06/04/17 20:00 36.6 82 18 149/83 (105) 98 Room Air 06/04/17 20:00 94 Room Air 06/04/17 16:00 95 Room Air 06/04/17 15:18 36.8 80 18 142/83 (102) 95 Room Air Physical Exam General Appearance: WD/WN, no apparent distress Eyes: normal inspection, PERRL, EOMI Neck: supple, no JVD, trachea midline Respiratory/Chest: normal breath sounds, no respiratory distress, no accessory muscle use Cardiovascular: regular rate, rhythm, no JVD, no murmur Abdomen: normal bowel sounds, non tender, soft Extremities: normal inspection, no pedal edema, no calf tenderness Neurologic/Psych: alert, oriented x 3, + depressed affect Skin: normal color, no jaundice, no rash Laboratory Results Last 24 Hours Test 06/04/17 14:07 06/04/17 16:44 06/04/17 20:06 06/04/17 22:03 Hemoglobin 8.8 g/dL 8.7 g/dL Hematocrit 28.7 % 28.8 % Bedside Glucose 91 mg/dl 121 mg/dl Test 06/05/17 05:50 06/05/17 07:32 White Blood Count 2.24 K/uL Red Blood Count 3.48 M/uL Hemoglobin 8.8 g/dL Hematocrit 28.9 % Mean Corpuscular Volume 83.0 fL Mean Corpuscular Hemoglobin 25.3 pg Mean Corpuscular Hemoglobin Concent 30.4 g/dl RDW Standard Deviation 53.8 fL RDW Coefficient of Variation 17.7 % Platelet Count 96 K/uL Mean Platelet Volume 8.0 fL Platelet Estimate DECREASED Sodium Level 138 mmol/L Potassium Level 3.3 mmol/L Chloride Level 104 mmol/L Carbon Dioxide Level 27 mmol/L Anion Gap 7.0 mmol/L Blood Urea Nitrogen 2 mg/dl Creatinine 0.40 mg/dl Est Creatinine Clear Calc Drug Dose 122.5 ml/min Estimated GFR () 122.3 Estimated GFR (Non- 105.5 BUN/Creatinine Ratio 6.2 Random Glucose 103 mg/dl Calcium Level 7.9 mg/dl Bedside Glucose 113 mg/dl Assessment and Plan Impression Patient is a 71 year old female w symptomatic anemia, found to have guaiac positive stools. Hx of AVMs found in EGD/Colonoscopy evals, negative VCE in 2008. Last endoscopic eval and treatment was just on August 2016 She started having normal colored BM, denies any n/v, abd pain. H/H stable around 8. Tolerating CL diet. Plan - Monitor H/H and transfuse prn - Advance diet as tolerated - Continue Protonix 40mg IV BID. - Will defer repeat endoscopic evals at this time as suspect likely AVM bleeds causing anemia. These will usually resolve by itself and pt needs supportive care (ie. blood transfusions). Though if continued melena, worsening anemia, will reconsider possible need of EGD/Colonoscopy evals. - Will watch peripherally, call if new questions/concerns. ATTESTATION: I have performed a history and physical examination of this patient and reviewed the electronic record. Specifically, on physical examination there is no abdominal tenderness. I have discussed the case with EDWARDO Gant. The above note reflects my findings, conclusions, and recommendations. Lenin Harris MD
--- NOTE | 2017-06-05 18:02 | Progress Note ---
Medicine Progress Note Date & Time of Visit: Jun 05, 2017 at 18:02. Subjective Patient denies any complaints, states she has not noticed melena. No overnight events noted. Tolerating PO. Less confused today. Denies feeling tired/weak. Objective Last 8 Hrs Date Time Temp Pulse Resp B/P (MAP) Pulse Ox O2 Delivery O2 Flow Rate FiO2 06/05/17 15:21 36.6 83 18 143/81 (101) 97 Room Air 06/05/17 12:00 Room Air 06/05/17 11:51 37.3 86 20 160/93 (115) 97 Room Air Physical Exam: GENERAL: Patient is in no acute distress. HEENT: No acute trauma, normocephalic, mucous membranes moist, no nasal congestion, no scleral icterus. NECK: No stridor, trachea is midline. LUNGS: Clear to auscultation bilaterally, no wheeze, no rhonchi, breath sounds equal. HEART: Without murmurs gallops or rubs, regular rate and rhythm. ABDOMEN: Soft, nontender, bowel sounds positive EXTREMITIES: No cyanosis or edema NEUROLOGIC: Oriented, no acute motor or sensory deficits, no focal weakness. SKIN: No rash, no jaundice, no diaphoresis. Laboratory Results: Last 24 Hours Test 06/04/17 20:06 06/04/17 22:03 06/05/17 05:50 06/05/17 07:32 Bedside Glucose 121 mg/dl 113 mg/dl Hemoglobin 8.7 g/dL 8.8 g/dL Hematocrit 28.8 % 28.9 % White Blood Count 2.24 K/uL Red Blood Count 3.48 M/uL Mean Corpuscular Volume 83.0 fL Mean Corpuscular Hemoglobin 25.3 pg Mean Corpuscular Hemoglobin Concent 30.4 g/dl RDW Standard Deviation 53.8 fL RDW Coefficient of Variation 17.7 % Platelet Count 96 K/uL Mean Platelet Volume 8.0 fL Platelet Estimate DECREASED Sodium Level 138 mmol/L Potassium Level 3.3 mmol/L Chloride Level 104 mmol/L Carbon Dioxide Level 27 mmol/L Anion Gap 7.0 mmol/L Blood Urea Nitrogen 2 mg/dl Creatinine 0.40 mg/dl Est Creatinine Clear Calc Drug Dose 122.5 ml/min Estimated GFR () 122.3 Estimated GFR (Non- 105.5 BUN/Creatinine Ratio 6.2 Random Glucose 103 mg/dl Calcium Level 7.9 mg/dl Test 06/05/17 16:42 Bedside Glucose 110 mg/dl Assessment & Plan Anemia with GI Bleed: -presenting with symptomatic anemia/tired/fatigue and melena -has a known hx of AVMs and gastric ulcer per prior endoscopy -Hb:8.0-->8.5 post transfusion, now 8.8 -Baseline/Last Hb from 03/2016: 9.9 -intermittently had melena and dark blood in stools -complains of loss of energy/tiredness -guaiac positive in ER -on IV Protonix BID -GI consulted, patient started on clear liquids with further monitoring and no urgent need for endoscopy at this time -s/p transfusion with 1 unit PRBCs -continue to monitor H&H closely -Iron panel, Vitamin B 12 normal -oral Iron therapy held for now, can resume upon discharge -avoid NSAIDs Elevated LFTs: -denies abdominal pain or jaundice prior to admission -trending down -likely medication related; continue to hold statin for now -can obtain US if not improving DM Type II: -hold oral meds while hospitalized -continue correction scale insulin + lower dose Lantus until patient taking in usual PO Hypothyroidism: -continue levothyroxine HTN: -hold lisinopril for now -monitor Seizure disorder: -continue home meds Hx of Subarachnoid hemorrhage: -No acute issues Bipolar disorder: -no acute issues -continue home meds, except vistaril as patient mentation was decreased DVT Prophylaxis: -SCDs only as evaluating for acute blood loss Current Inpatient Medications: Current Inpatient Medications Medications (Trade) Dose Ordered Sig/Mauricio Route Start Time Stop Time Status Last Admin Dose Admin Sodium Chloride 1,000 ml @ 75 mls/hr [id number] IV 06/03/17 23:45 07/03/17 23:44 06/05/17 15:35 75 MLS/HR Acetaminophen (Tylenol Tab) 650 mg Q4H PRN PO 06/03/17 21:15 07/03/17 21:14 Ondansetron HCl (Zofran Inj) 4 mg Q6H PRN IV 06/03/17 21:15 07/03/17 21:14 Pantoprazole Sodium 40 mg/ Syringe 10 ml @ 5 mls/min DAILY@09,21 IV 06/03/17 23:45 07/03/17 23:44 06/05/17 07:51 5 MLS/MIN Insulin Aspart (novoLOG ASPART) SLIDING SCALE If C... ACHS SC 06/03/17 23:45 07/03/17 23:44 06/05/17 12:20 1 UNITS Glucose (Glucose 40% Gel) 15-30 GRAMS 15 GRAMS... UD PRN PO 06/03/17 21:30 07/03/17 21:29 Glucose (Glucose Chew Tab) 4-8 Tablets 4 Tabl... UD PRN PO 06/03/17 21:30 07/03/17 21:29 Dextrose (Dextrose 50% 50ML Syringe) 25-50ML OF 50% DW IV FOR... UD PRN IV 06/03/17 21:30 07/03/17 21:29 Glucagon (Glucagon Inj) 1 mg UD PRN SQ 06/03/17 21:30 07/03/17 21:29 Duloxetine HCl (Cymbalta Cap) 30 mg QAM PO 06/04/17 09:00 07/04/17 08:59 06/05/17 07:51 30 MG Insulin Glargine (Lantus Solostar Pen) 20 units QPM SC 06/03/17 23:45 07/03/17 23:44 06/04/17 21:19 20 UNITS Lamotrigine (Lamictal Tab) 200 mg HS PO 06/03/17 23:45 07/03/17 23:44 06/04/17 21:15 200 MG Levetiracetam (Keppra Tab) 1,000 mg BID PO 06/03/17 23:45 07/03/17 23:44 06/05/17 07:52 1,000 MG Levothyroxine Sodium (Synthroid Tab) 25 mcg DAILYBB PO 06/04/17 06:30 07/04/17 06:29 06/05/17 05:53 25 MCG Risperidone (Risperdal Tab) 0.5 mg BID PO 06/03/17 23:45 07/03/17 23:44 06/05/17 07:52 0.5 MG Lamotrigine (Lamictal Tab) 100 mg QAM PO 06/04/17 09:00 07/04/17 08:59 06/05/17 07:52 100 MG
[2017-06-05] MEDS: INSULIN GLARGINE SOLOSTAR 100 UNITS/ML 3 ML PEN SC SCH (20:47)
[2017-06-06] VITALS (10 sets, daily range): BP systolic 146–174; BP diastolic 71–91; PULSE 71–90; TEMP 36.5–36.9; O2SAT 95–99
[2017-06-06] MEDS: SODIUM CHLORIDE 0.9% 1000ML 1,000 ML IV SCH ×2 (04:58→17:57)
[2017-06-06] MEDS: LEVOTHYROXINE 25 MCG TAB PO SCH (05:52)
[2017-06-06 07:19] LABS: HEMATOCRIT 31.1 % (37-47); MEAN CELL VOLUME 82.5 fL (80-100); MEAN CORPUSCULAR HEMOGLOBIN 24.7 pg (25-34); MEAN CORPUSCULAR HGB CONC 29.9 g/dl (32-36); MEAN PLATELET VOLUME 8.6 fL (7.4-10.4); PLATELET COUNT 115 K/uL (130-400); RED BLOOD COUNT 3.77 M/uL (4.2-5.4); WHITE BLOOD COUNT 2.34 K/uL (4.8-10.8)
[2017-06-06 07:34] LABS: BUN/CREATININE RATIO 3.2 (10-20); CALCIUM 8.1 mg/dl (8.5-10.1); CREATININE 0.44 mg/dl (0.60-1.20); POTASSIUM 3.5 mmol/L (3.5-5.1)
[2017-06-06] MEDS: DULOXETINE (CYMBALTA) 30 MG CAP PO SCH (08:02)
[2017-06-06] MEDS: LEVETIRACETAM 500 MG TAB PO SCH ×2 (08:03→20:57)
[2017-06-06] MEDS: RISPERIDONE 0.5 MG TAB PO SCH ×2 (08:03→20:57)
[2017-06-06] MEDS: INSULIN ASPART 100 UNITS/ML 3 ML PEN SC SCH ×4 (08:07→20:59)
[2017-06-06] MEDS ORDERED: POTASSIUM CHLORIDE 10 MEQ TABCR PO STA (08:09)
[2017-06-06] MEDS: PANTOprazole INJ 40 MG in SYRINGE 0 ML IV SCH ×2 (08:46→20:55)
[2017-06-06] MEDS ORDERED: LACTULOSE SYRUP 30 GM/45 ML UDP PO ONE (12:45)
--- NOTE | 2017-06-06 18:21 | Progress Note ---
Medicine Progress Note Date & Time of Visit: Jun 06, 2017 at 18:20. Subjective Patient denies any complaints, she was informed of concerns and states she does not want to see Psych here and she prefers to see her Psychiatrist as an outpatient. No overnight events noted. Tolerating PO. Denies any blood in her stool. Still tired and sleeping alot but per her and sister in law the patient has been this way for over a month, and today she seems more alert than she was at home. Objective Last 8 Hrs Date Time Temp Pulse Resp B/P (MAP) Pulse Ox O2 Delivery O2 Flow Rate FiO2 06/06/17 15:28 36.9 79 20 151/84 (106) 97 Room Air 06/06/17 12:00 97 Room Air 06/06/17 11:28 36.5 76 20 155/71 (99) 97 Room Air Physical Exam: GENERAL: Patient is in no acute distress. HEENT: No acute trauma, normocephalic, mucous membranes moist, no nasal congestion, no scleral icterus. NECK: No stridor, trachea is midline. LUNGS: Clear to auscultation bilaterally, no wheeze, no rhonchi, breath sounds equal. HEART: Without murmurs gallops or rubs, regular rate and rhythm. ABDOMEN: Soft, nontender, bowel sounds positive EXTREMITIES: No cyanosis or edema NEUROLOGIC: Oriented, no acute motor or sensory deficits, no focal weakness. SKIN: No rash, no jaundice, no diaphoresis. Laboratory Results: Last 24 Hours Test 06/05/17 19:58 06/06/17 06:36 06/06/17 07:41 06/06/17 08:45 Bedside Glucose 130 mg/dl 109 mg/dl White Blood Count 2.34 K/uL Red Blood Count 3.77 M/uL Hemoglobin 9.3 g/dL Hematocrit 31.1 % Mean Corpuscular Volume 82.5 fL Mean Corpuscular Hemoglobin 24.7 pg Mean Corpuscular Hemoglobin Concent 29.9 g/dl RDW Standard Deviation 53.3 fL RDW Coefficient of Variation 17.7 % Platelet Count 115 K/uL Mean Platelet Volume 8.6 fL Nucleated RBC Absolute Count (auto) 0.02 K/uL Nucleated Red Blood Cells % 0.9 % Sodium Level 139 mmol/L Potassium Level 3.5 mmol/L Chloride Level 105 mmol/L Carbon Dioxide Level 24 mmol/L Anion Gap 10.0 mmol/L Blood Urea Nitrogen 1 mg/dl Creatinine 0.44 mg/dl Est Creatinine Clear Calc Drug Dose 111.8 ml/min Estimated GFR () 118.5 Estimated GFR (Non- 102.3 BUN/Creatinine Ratio 3.2 Random Glucose 94 mg/dl Calcium Level 8.1 mg/dl Total Bilirubin 0.9 mg/dl Direct Bilirubin 0.4 mg/dl Aspartate Amino Transf (AST/SGOT) 89 U/L Alanine Aminotransferase (ALT/SGPT) 46 U/L Alkaline Phosphatase 209 U/L Ammonia 46.0 umol/L Total Protein 5.8 gm/dl Albumin 2.9 gm/dl Test 06/06/17 11:35 06/06/17 16:27 06/06/17 16:57 Bedside Glucose 122 mg/dl 130 mg/dl 143 mg/dl Assessment & Plan Anemia with GI Bleed: -presenting with symptomatic anemia/tired/fatigue and melena -has a known hx of AVMs and gastric ulcer per prior endoscopy -Hb:8.0-->8.5 post transfusion, now 9.3 -Baseline/Last Hb from 03/2016: 9.9 -intermittently had melena and dark blood in stools -complained of loss of energy/tiredness -guaiac positive in ER -on IV Protonix BID -GI consulted, patient started on clear liquids with further monitoring and no urgent need for endoscopy at this time -s/p transfusion with 1 unit PRBCs -continue to monitor H&H closely -Iron panel, Vitamin B 12 normal -oral Iron therapy held for now, can resume upon discharge -avoid NSAIDs Elevated LFTs: -denies abdominal pain or jaundice prior to admission -trending down -likely medication related; continue to hold statin for now -can obtain US if not improving DM Type II: -hold oral meds while hospitalized -continue correction scale insulin + lower dose Lantus until patient taking in usual PO Hypothyroidism: -continue levothyroxine HTN: -hold lisinopril for now -monitor Seizure disorder: -continue home meds Hx of Subarachnoid hemorrhage: -No acute issues Bipolar disorder: -no acute issues -continue home meds, except vistaril as patient mentation was decreased DVT Prophylaxis: -SCDs only as evaluating for acute blood loss Current Inpatient Medications: Current Inpatient Medications Medications (Trade) Dose Ordered Sig/Mauricio Route Start Time Stop Time Status Last Admin Dose Admin Sodium Chloride 1,000 ml @ 75 mls/hr [id number] IV 06/03/17 23:45 07/03/17 23:44 06/06/17 17:57 75 MLS/HR Acetaminophen (Tylenol Tab) 650 mg Q4H PRN PO 06/03/17 21:15 07/03/17 21:14 Ondansetron HCl (Zofran Inj) 4 mg Q6H PRN IV 06/03/17 21:15 07/03/17 21:14 Pantoprazole Sodium 40 mg/ Syringe 10 ml @ 5 mls/min DAILY@ IV 06/03/17 23:45 07/03/17 23:44 06/06/17 08:46 5 MLS/MIN Insulin Aspart (novoLOG ASPART) SLIDING SCALE If C... ACHS SC 06/03/17 23:45 07/03/17 23:44 06/06/17 17:54 2 UNITS Glucose (Glucose 40% Gel) 15-30 GRAMS 15 GRAMS... UD PRN PO 06/03/17 21:30 07/03/17 21:29 Glucose (Glucose Chew Tab) 4-8 Tablets 4 Tabl... UD PRN PO 06/03/17 21:30 07/03/17 21:29 Dextrose (Dextrose 50% 50ML Syringe) 25-50ML OF 50% DW IV FOR... UD PRN IV 06/03/17 21:30 07/03/17 21:29 Glucagon (Glucagon Inj) 1 mg UD PRN SQ 06/03/17 21:30 07/03/17 21:29 Duloxetine HCl (Cymbalta Cap) 30 mg QAM PO 06/04/17 09:00 07/04/17 08:59 06/06/17 08:02 30 MG Insulin Glargine (Lantus Solostar Pen) 20 units QPM SC 06/03/17 23:45 07/03/17 23:44 06/05/17 20:47 20 UNITS Lamotrigine (Lamictal Tab) 200 mg HS PO 06/03/17 23:45 07/03/17 23:44 06/05/17 20:40 200 MG Levetiracetam (Keppra Tab) 1,000 mg BID PO 06/03/17 23:45 07/03/17 23:44 06/06/17 08:03 1,000 MG Levothyroxine Sodium (Synthroid Tab) 25 mcg DAILYBB PO 06/04/17 06:30 07/04/17 06:29 06/06/17 05:52 25 MCG Risperidone (Risperdal Tab) 0.5 mg BID PO 06/03/17 23:45 07/03/17 23:44 06/06/17 08:03 0.5 MG Lamotrigine (Lamictal Tab) 100 mg QAM PO 06/04/17 09:00 07/04/17 08:59 06/06/17 08:02 100 MG
[2017-06-06] MEDS: INSULIN GLARGINE SOLOSTAR 100 UNITS/ML 3 ML PEN SC SCH (21:00)
--- NOTE | 2017-06-06 21:49 | DIAGNOSTIC IMAGING REPORT ---
BILIARY ULTRASOUND CLINICAL HISTORY: Elevated LFTs and ammonia COMPARISON STUDY: No previous studies for comparison. FINDINGS: No pancreatic masses are visualized. There is borderline dilatation of the pancreatic duct. The liver is of increased echogenicity, nonspecific finding most often seen in hepatic steatosis. There is trace perihepatic fluid. The gallbladder is contracted. No gallstones are visualized. There is no ductal dilatation. The common bile duct measures up to 6 mm. IMPRESSION: 1. Increased hepatic echogenicity, consistent with hepatic steatosis 2. Trace perihepatic fluid 3. No gallstones identified 4. Borderline dilatation of the pancreatic duct which measures 4 mm 5. No evidence of intra or extrahepatic biliary ductal dilatation Electronically signed by: Hardeep Lerma M.D. 06/06/2017 9:47 PM Dictated Date/Time: 06/06/2017 9:45 PM
[2017-06-06] MEDS ORDERED: LISINOPRIL 10 MG TAB PO ONE (23:15)
[2017-06-07] VITALS (9 sets, daily range): BP systolic 147–176; BP diastolic 76–82; PULSE 73–86; TEMP 36.5–36.8; O2SAT 95–97
[2017-06-07] MEDS: LEVOTHYROXINE 25 MCG TAB PO SCH (05:50)
[2017-06-07 06:01] LABS: HEMATOCRIT 29.8 % (37-47); MEAN CORPUSCULAR HEMOGLOBIN 25.3 pg (25-34); MEAN CORPUSCULAR HGB CONC 30.5 g/dl (32-36); MEAN PLATELET VOLUME 8.7 fL (7.4-10.4); PLATELET COUNT 113 K/uL (130-400); RED BLOOD COUNT 3.59 M/uL (4.2-5.4); WHITE BLOOD COUNT 2.38 K/uL (4.8-10.8)
[2017-06-07 06:32] LABS: CALCIUM 8.3 mg/dl (8.5-10.1); CREATININE 0.4 mg/dl (0.60-1.20); POTASSIUM 3.4 mmol/L (3.5-5.1)
[2017-06-07] MEDS: SODIUM CHLORIDE 0.9% 1000ML 1,000 ML IV SCH (07:45)
[2017-06-07] MEDS: DULOXETINE (CYMBALTA) 30 MG CAP PO SCH (08:05)
[2017-06-07] MEDS: LEVETIRACETAM 500 MG TAB PO SCH (08:05)
[2017-06-07] MEDS: RISPERIDONE 0.5 MG TAB PO SCH (08:05)
[2017-06-07] MEDS: PANTOprazole INJ 40 MG in SYRINGE 0 ML IV SCH (08:25)
[2017-06-07] MEDS: INSULIN ASPART 100 UNITS/ML 3 ML PEN SC SCH ×2 (08:25→12:13)
--- NOTE | 2017-06-07 15:46 | Discharge Instructions ---
Discharge Instructions Date of Service Jun 07, 2017. Admission Reason for Admission: Anemia, Gi Bleed Discharge Discharge Diagnosis / Problem: GI bleed, Anemia, elevated LFT's Discharge Goals Goal(s): Therapeutic intervention Activity Recommendations Activity Limitations: resume your previous activity . Instructions / Follow-Up Instructions / Follow-Up Please see Dr. Sebastian on June 12 at 10:45AM for hospital follow up Please follow up with Psychiatry regarding review of medications Please call to follow up with GI regarding elevated liver enzymes/ammonia Do not resume discontinued medications until after following up with your primary care physician Current Hospital Diet Patient's current hospital diet: Diabetes Type 2 Diet, Low Fiber Diet Discharge Diet Recommended Diet: Diabetes Type 2 Diet, Low Fiber Diet Pending Studies Studies pending at discharge: no Medical Emergencies . Who to Call and When: Medical Emergencies: If at any time you feel your situation is an emergency, please call 911 immediately. . Non-Emergent Contact Non-Emergency issues call your: Primary Care Provider . . "Provider Documentation" section prepared by Kelly Cardona. . VTE Core Measure Inpt VTE Proph given/why not?: SCD's
[2017-06-07] MEDS ORDERED: POTASSIUM CHLORIDE 10 MEQ TABCR PO ONE (16:15)
--- NOTE | 2017-06-08 09:20 | Discharge Summary ---
Discharge Summary Date of Service Jun 08, 2017. Discharge Summary Admission Date: Jun 03, 2017 at 21:12 Discharge Date: Jun 07, 2017 Discharge Disposition: Home with services Principal Diagnosis: Symptomatic anemia, GI bleed, elevated LFTs Pending Studies/Follow-Up: CBC recheck; LFTs recheck before resuming statins, Psych review of meds, outpatient GI regarding elevated LFTs and ammonia Medication Reconciliation Continued Medications: Duloxetine HCl (Cymbalta) 30 Mg Cap 30 MG PO QAM Ferrous Gluconate (Ferrous Gluconate) 324 Mg Tab 324 MG PO TID Insulin Glargine (Lantus Solostar) 100 Unit/Ml Inj 25 UNITS SC QPM, PEN Lamotrigine (Lamictal) 200 Mg Tab 200 MG PO HS, #30 TAB 5 Refills Levetiracetam (Keppra) 1,000 Mg Tab 1000 MG PO BID, TAB Levothyroxine Sodium (Levothyroxine Sodium) 25 Mcg Tab 25 MCG PO QAM Lisinopril (Zestril) 10 Mg Tab 10 MG PO QAM, TAB Magnesium Oxide (Mag-Ox) 400 Mg Tab 400 MG PO DAILY, TAB Multivitamin (Multivitamin) Tab 1 TAB PO QAM, TAB Omeprazole (Prilosec) 20 Mg Capcr 20 MG PO BID Risperidone (Risperdal) 0.5 Mg Tab 0.5 MG PO BID, TAB Sitagliptin-Metformin Hcl (Janumet) 1 Tab Tab 1 TAB PO BID, #180 Discontinued Medications: Acetaminophen Tab (Tylenol) 325 Mg Tab 650 MG PO PRN for Pain, TAB Hydroxyzine Pamoate (Vistaril) 50 Mg Cap 50 MG PO HS, CAP Rosuvastatin Calcium (Crestor) 10 Mg Tab 10 MG PO QAM, TAB Admission Information HPI (per Admitting provider): Patient is a 69 yr old female with PMH of Diabetes, Hypertension,. Bipolar disorder, Seizure Disorder, S/P Subarachnoid hemorrhage, Chronic Anemia, Hypothyroidism and other problems presents with dark colored bloody stools since 2 weeks duration. Patient is a poor historian and no family member available. She reports she has been very tired lately and has been sleeping most of the day. Reports noticing dark colored bloody stools intermittently. She has been on Iron pills but denies taking Aspirin, NSAIDs. Denies any history of fever, chills, abd pain, diarrhea, urinary symptoms, SOB, chest pain , palpitations, cough, dizziness, headache, blurry vision. Patient has guaiac positive stools when tested in ED. Physical Exam (per Admitting): General Appearance: WD/WN, no apparent distress Head: normocephalic, atraumatic Eyes: normal inspection, PERRL, + pertinent finding (+Pallor) ENT: normal ENT inspection, hearing grossly normal Neck: supple, trachea midline Respiratory/Chest: chest non-tender, lungs clear, no respiratory distress, no accessory muscle use, + pertinent finding (Mild decreased breath sounds at bases) Cardiovascular: regular rate, rhythm, no edema, no murmur Abdomen/GI: normal bowel sounds, non tender, soft Back: normal inspection Extremities/Musculoskelatal: normal inspection, no pedal edema Neurologic/Psych: 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 tested, alert, oriented x 3, + pertinent finding (Grossly no focal deficits) Skin: normal color, warm/dry, + pallor Hospital Course Anemia with GI Bleed: -presenting with symptomatic anemia/tired/fatigue and melena -has a known hx of AVMs and gastric ulcer per prior endoscopy -Hb:8.0-->8.5 post transfusion, now 9.1 -Baseline/Last Hb from 03/2016: 9.9 -intermittently had melena and dark blood in stools -complained of loss of energy/tiredness -guaiac positive in ER -on IV Protonix BID -GI consulted, patient started on clear liquids with further monitoring and no urgent need for endoscopy at this time -s/p transfusion with 1 unit PRBCs -continue to monitor H&H closely -Iron panel, Vitamin B 12 normal -oral Iron therapy held for now, can resume upon discharge -avoid NSAIDs Elevated LFTs: -denies abdominal pain or jaundice prior to admission -trending down -likely medication related; continue to hold statin for now DM Type II: -hold oral meds while hospitalized -continue correction scale insulin + lower dose Lantus until patient taking in usual PO Hypothyroidism: -continue levothyroxine HTN: -hold lisinopril for now -monitor Seizure disorder: -continue home meds Hx of Subarachnoid hemorrhage: -No acute issues Bipolar disorder: -no acute issues -continue home meds, except vistaril as patient mentation was decreased DVT Prophylaxis: -SCDs only as evaluating for acute blood loss PHYSICAL EXAM ON DAY OF DISCHARGE: GENERAL: Patient is in no acute distress. HEENT: No acute trauma, normocephalic, mucous membranes moist, no nasal congestion, no scleral icterus. NECK: No stridor, trachea is midline. LUNGS: Clear to auscultation bilaterally, no wheeze, no rhonchi, breath sounds equal. HEART: Without murmurs gallops or rubs, regular rate and rhythm. ABDOMEN: Soft, nontender, bowel sounds positive EXTREMITIES: No cyanosis or edema NEUROLOGIC: Oriented x 3, no acute motor or sensory deficits, no focal weakness. Flat affect. SKIN: No rash, no jaundice, no diaphoresis. Total time spent on discharge = 39 This includes examination of the patient, discharge planning, medication reconciliation, and communication with other providers. Discharge Instructions Test 06/07/17 16:27 Bedside Glucose 158 mg/dl (70-90)
== END 2017-06-07 17:25 | disposition home health service (06) | DRG 300 ==
LOC: C.EDB 14:43 → C.MED 21:12 → CANRESERV 22:48 → ENRESERV 22:48
PROVIDERS: ADMIT Internal Medicine; ATTEND Internal Medicine
DX: Q27.30 Arteriovenous malformation, site unspecified (principal); K92.1 Melena; D50.0 Iron deficiency anemia secondary to blood loss (chronic); F31.9 Bipolar disorder, unspecified; G40.909 Epilepsy, unspecified, not intractable, without status epilepticus; Z87.891 Personal history of nicotine dependence; E11.9 Type 2 diabetes mellitus without complications; I10 Essential (primary) hypertension; E03.9 Hypothyroidism, unspecified; K25.9 Gastric ulcer, unspecified as acute or chronic, without hemorrhage or perforation; Q45.9 Congenital malformation of digestive system, unspecified

== ENCOUNTER 2017-11-22 15:08 | Emergency (ER) | payer OTHER ==
[~2017-11-22] VITALS: Ht 160 cm; Wt 69.6 kg
[2017-11-22 15:08] VITALS: TEMP 36.8; Ht 160 cm; Wt 69.6 kg
[~2017-11-22 15:08] MED LIST changes: -ACET325T96 PO; -ALBUAER19 INH; -ASPI81TA28 PO; -CRS/10 PO; -HYDR50CA2 PO; -INSDGI SC; +INSDGIPEN SC; -LAMO100T16 PO; +LAMO200T35 PO; -LAMO200T38 PO
[2017-11-22] MEDS ORDERED: SODIUM CHLORIDE 0.9% 500ML 500 ML IV STA (15:40)
[2017-11-22] MEDS ORDERED: SODIUM CHLORIDE 0.9% 1000ML 1,000 ML IV STA (15:40)
[2017-11-22 15:49] LABS: BASO % 0.9 %; BASO ABS # 0.08 K/uL (0-0.2); EOS % 1.9 %; HEMATOCRIT 39.6 % (37-47); IG% 0.6 %; LYMPH % 35.6 %; LYMPH ABS # 3.03 K/uL (1.2-3.4); MEAN CELL VOLUME 87.2 fL (80-100); MEAN CORPUSCULAR HEMOGLOBIN 28.9 pg (25-34); MEAN CORPUSCULAR HGB CONC 33.1 g/dl (32-36); MEAN PLATELET VOLUME 8.2 fL (7.4-10.4); MONO % 4.6 %; NEUT % 56.4 %; PLATELET COUNT 230 K/uL (130-400); RED BLOOD COUNT 4.54 M/uL (4.2-5.4); WHITE BLOOD COUNT 8.51 K/uL (4.8-10.8)
--- NOTE | 2017-11-22 15:50 | EMERGENCY ROOM VISIT NOTE ---
History Report prepared by Sam: Joey Wall Under the Supervision of: Dr. Sharonda Nice D.O. First contact with patient: 15:18 Chief Complaint: ALTERED MENTAL STATUS Stated Complaint: AMS/ History of Present Illness The patient is a 72 year old female who presents to the Emergency Room with complaints of persistent altered mental status beginning prior to arrival. Per the , the patient was trying to get out of bed this morning and slid off of the bed multiple times. Afterwards the left, and when he came back she was on the floor and incoherent. The patient's daughter notes that there was a bottle of gin on the counter at home, and that she used to drink though quit 2 months ago. The states that she was diagnosed with cervical cancer 4 days ago, and she has not really been eating well or drinking fluids. Additionally, the patient has a history of seizures, and she is currently on seizure medications. Additionally, the patient was recently given Ativan, and the states that she took too many yesterday. He states that she was given 30 pills three days ago, and there are only 8 left now. The patient used to drink alcohol more, though two months ago she had problems with her liver. Source of History: patient, transfer records Onset: prior to arrival Position: other (global) Quality: other (altered mental status) Timing: other (persistent ) Review of Systems See HPI for pertinent positives & negatives. A total of 10 systems reviewed and were otherwise negative. Past Medical & Surgical Medical Problems: (1) Anemia (2) Bipolar (3) Cavernoma (4) DM (diabetes mellitus) (5) Dyslipidemia (6) Hyperthyroidism (7) Intracranial hemorrhage (8) Rib fractures (9) Seizure (10) Seizure disorder Family History FHx: diabetes FATHER FHx: hypertension FATHER FHx: myocardial infarction MOTHER FHx: stroke FATHER Social History Smoking Status: Current Every Day Smoker Alcohol Use: none Drug Use: none Marital Status: Housing Status: lives with significant other Occupation Status: retired Current/Historical Medications Scheduled Albuterol Hfa (Ventolin Hfa), 2 PUFFS INH QID Duloxetine HCl (Cymbalta), 30 MG PO QAM Duloxetine Hcl (Cymbalta), 60 MG PO DAILY Ferrous Gluconate (Ferrous Gluconate), 324 MG PO BID Insulin Glargine (Lantus Solostar), 50 UNITS SC HS Lamotrigine (Lamictal), 200 MG PO HS Levetiracetam (Keppra), 1,000 MG PO BID Levocetirizine Dihydrochloride (Levocetirizine Dihydrochl), 5 MG PO QPM Levothyroxine Sodium (Levothyroxine Sodium), 25 MCG PO QAM Lisinopril (Zestril), 30 MG PO DAILY Magnesium Oxide (Mag-Ox), 400 MG PO BID Multivitamin (Multivitamin), 1 TAB PO QAM Pantoprazole (Protonix), 40 MG PO BID Ranitidine (Zantac), 150 MG PO BID Rosuvastatin Calcium (Crestor), 10 MG PO DAILY Sitagliptin-Metformin Hcl (Janumet), 1 TAB PO BID Thiamine Hcl (Vitamin B-1), 100 MG PO DAILY Scheduled PRN Lactulose (Chronulac), 30 ML PO BID PRN for SEVERE CONSTIPATION Loperamide Hcl (Imodium), 2 MG PO QID PRN for Diarrhea Lorazepam (Ativan), 0.5 MG PO TID PRN for Anxiety Allergies Coded Allergies: Aspirin (Verified Allergy, Intermediate, INTESTINAL BLEEDING AND HIVES, ) Prednisone (Verified Allergy, Intermediate, HIVES; TREMORS, 04/29/16) Citalopram (Verified Allergy, Unknown, 04/29/16) Lidocaine (Verified Allergy, Unknown, edema face and lips, 04/29/16) Metoclopramide (Verified Allergy, Unknown, ?, 04/29/16) Onion (Verified Allergy, Unknown, 04/29/16) Simethicone (Verified Allergy, Unknown, ?, 06/08/14) Simvastatin (Verified Allergy, Unknown, ., 04/29/16) Valproic Acid and Related (Verified Allergy, Unknown, ., 04/29/16) Magnesium Citrate (Verified Adverse Reaction, Unknown, NAUSEA, 06/08/14) Physical Exam Vital Signs Date Time Temp Pulse Resp B/P (MAP) Pulse Ox O2 Delivery O2 Flow Rate FiO2 11/22/17 18:44 105 11/22/17 18:31 129/64 11/22/17 18:11 108 20 95 11/22/17 18:06 108 22 93 11/22/17 18:01 115/46 11/22/17 17:48 100 17 95 11/22/17 17:43 106 19 92 11/22/17 17:31 118/42 11/22/17 17:30 114/43 11/22/17 17:27 115/39 11/22/17 16:13 100 19 93 11/22/17 16:08 94 19 93 11/22/17 16:02 115/59 11/22/17 15:38 102 16 117/52 93 Room Air 11/22/17 15:38 102 17 92 11/22/17 15:31 117/52 11/22/17 15:18 105 11/22/17 15:15 116/44 11/22/17 15:08 36.8 104 16 116/44 93 Room Air Physical Exam General: Extremely disheveled, slurred speech, confused, constantly moving. HEENT: Head - normocephalic and atraumatic Pupils are 2mm and reactive to light. Extraocular eye muscles are intact, and sclera are anicteric. Nose - moist nasal mucosa without discharge. Mouth - extremely dry buccal mucosa. Oropharynx is nonerythematous and there is no tonsillar exudate or edema noted. Neck: Supple; no JVD, nuchal rigidity, cervical lymphadenopathy. Heart: Tachycardic rate and regular rhythm. There is a normal S1 and S2 with no murmurs, clicks, or gallops appreciated. Lungs: Clear to auscultation bilaterally with no wheezes, rales, or rhonchi. Abdomen: Soft, completely nontender, nondistended, with good bowel sounds. There are no palpable pulsatile masses or hepatosplenomegaly. There is no guarding, rigidity, or rebound noted. Extremities: No evidence of cyanosis, clubbing, or edema. There are easily palpable peripheral pulses. Skin: warm and dry with good turgor and no rashes. Medical Decision & Procedures ER Provider Diagnostic Interpretation: Radiology results as stated below per my review and the radiologist's interpretation: CT HEAD WITHOUT CONTRAST (CT) CLINICAL HISTORY: Altered mental status COMPARISON STUDY: 06/08/2014 TECHNIQUE: Axial CT of the brain is performed from the vertex to the skull base. IV contrast was not administered for this examination. A dose lowering technique was utilized adhering to the principles of ALARA. CT DOSE: 537.48 mGy.cm FINDINGS: No intra or extra-axial mass lesions are visualized. There is no CT evidence of acute cortical infarction. There is no evidence of midline shift. There is no acute hemorrhage. No calvarial fractures are visualized. There are patchy white matter hypodensities likely on a small vessel basis. There is no evidence of pathologic ventricular dilatation. There is a cavum vellum interpositum. There is no evidence of acute sinusitis There is dense calcification within the right basal ganglia. There is frontal lobe atrophy. IMPRESSION: 1. No acute intracranial findings 2. Stable frontal lobe atrophy 3. Stable dense calcifications within the right basal ganglia Electronically signed by: Hardeep Lerma M.D. 11/22/2017 4:42 PM Dictated Date/Time: 11/22/2017 4:40 PM Laboratory Results 11/22/17 15:00 Red Blood Count 4.54, Mean Corpuscular Volume 87.2, Mean Corpuscular Hemoglobin 28.9, Mean Corpuscular Hemoglobin Concent 33.1, Mean Platelet Volume 8.2, Neutrophils (%) (Auto) 56.4, Lymphocytes (%) (Auto) 35.6, Monocytes (%) (Auto) 4.6, Eosinophils (%) (Auto) 1.9, Basophils (%) (Auto) 0.9, Neutrophils # (Auto) 4.80, Lymphocytes # (Auto) 3.03, Monocytes # (Auto) 0.39, Eosinophils # (Auto) 0.16, Basophils # (Auto) 0.08 11/22/17 15:00 Test 11/22/17 15:00 11/22/17 15:17 11/22/17 15:59 11/22/17 16:01 White Blood Count 8.51 K/uL (4.8-10.8) Red Blood Count 4.54 M/uL (4.2-5.4) Hemoglobin 13.1 g/dL (12.0-16.0) Hematocrit 39.6 % (37-47) Mean Corpuscular Volume 87.2 fL (80-100) Mean Corpuscular Hemoglobin 28.9 pg (25-34) Mean Corpuscular Hemoglobin Concent 33.1 g/dl (32-36) Platelet Count 230 K/uL (130-400) Mean Platelet Volume 8.2 fL (7.4-10.4) Neutrophils (%) (Auto) 56.4 % Lymphocytes (%) (Auto) 35.6 % Monocytes (%) (Auto) 4.6 % Eosinophils (%) (Auto) 1.9 % Basophils (%) (Auto) 0.9 % Neutrophils # (Auto) 4.80 K/uL (1.4-6.5) Lymphocytes # (Auto) 3.03 K/uL (1.2-3.4) Monocytes # (Auto) 0.39 K/uL (0.11-0.59) Eosinophils # (Auto) 0.16 K/uL (0-0.5) Basophils # (Auto) 0.08 K/uL (0-0.2) RDW Standard Deviation 65.1 fL (36.4-46.3) RDW Coefficient of Variation 20.6 % (11.5-14.5) Immature Granulocyte % (Auto) 0.6 % Immature Granulocyte # (Auto) 0.05 K/uL (0.00-0.02) Anisocytosis PRESENT Anion Gap 22.0 mmol/L (3-11) Est Creatinine Clear Calc Drug Dose 33.8 ml/min Estimated GFR () 42.6 Estimated GFR (Non- 36.8 BUN/Creatinine Ratio 18.3 (10-20) Calcium Level 9.3 mg/dl (8.5-10.1) Total Bilirubin 0.3 mg/dl (0.2-1) Direct Bilirubin 0.1 mg/dl (0-0.2) Aspartate Amino Transf (AST/SGOT) 26 U/L (15-37) Alanine Aminotransferase (ALT/SGPT) 25 U/L (12-78) Alkaline Phosphatase 113 U/L (45-117) Troponin I < 0.015 ng/ml (0-0.045) Total Protein 7.1 gm/dl (6.4-8.2) Albumin 3.6 gm/dl (3.4-5.0) Lipase 156 U/L (73-393) Thyroid Stimulating Hormone (TSH) 0.856 uIu/ml (0.300-4.500) Salicylates Level 2.7 mg/dl (2.8-20) Acetaminophen Level < 2 ug/ml (10-30) Bedside Glucose 71 mg/dl (70-90) Ethyl Alcohol mg/dL 279.0 mg/dl (0-3) Urine Color YELLOW Urine Appearance CLEAR (CLEAR) Urine pH 5.0 (4.5-7.5) Urine Specific [place] 1.020 (1.000-1.030) Urine Protein 2+ (NEG) Urine Glucose (UA) NEG (NEG) Urine Ketones TRACE (NEG) Urine Occult Blood NEG (NEG) Urine Nitrite NEG (NEG) Urine Bilirubin NEG (NEG) Urine Urobilinogen NEG (NEG) Urine Leukocyte Esterase NEG (NEG) Urine WBC (Auto) 1-5 /hpf (0-5) Urine RBC (Auto) 0-4 /hpf (0-4) Urine Hyaline Casts (Auto) 1-5 /lpf (0-5) Urine Epithelial Cells (Auto) 5-10 /lpf (0-5) Urine Bacteria (Auto) NEG (NEG) Urine Opiates Screen NEG (NEG) Urine Methadone, Qualitative NEG (NEG) Urine Barbiturates NEG (NEG) Urine Phencyclidine (PCP) Level NEG (NEG) Ur Amphetamine/Methamphetamine NEG (NEG) MDMA (Ecstasy) Screen NEG (NEG) Urine Benzodiazepines Screen NEG (NEG) Urine Cocaine Metabolite NEG (NEG) Urine Marijuana (THC) NEG (NEG) Laboratory results per my review. Medications Administered Medications (Trade) Dose Ordered Sig/Mauricio Route Start Time Stop Time Status Last Admin Dose Admin Sodium Chloride 500 ml @ 999 mls/hr Q31M STAT IV 11/22/17 15:40 11/22/17 16:10 DC 11/22/17 16:01 999 MLS/HR Sodium Chloride 1,000 ml @ 250 mls/hr Q4H STAT IV 11/22/17 15:40 11/22/17 19:39 11/22/17 16:02 250 MLS/HR Procedure Ordered Sodium Chloride ECG Indication: altered mental status Rate (beats per minute): 104 Rhythm: sinus tachycardia Findings: ST elevation (Inferior. Concerning for ischemia), no ectopy Comparison ECG Date: 06/03/17 Change: ST elevation is new REPEAT EKG: Still has slight ST elevation in the inferior leads, but it is not worse. ED Course 1518: Past medical records reviewed. The patient was evaluated in room B2. A complete history and physical exam was performed. Laboratory studies were drawn as above. Twelve-lead EKG was obtained as described above. 1540: Sodium Chloride 1000 ml @ 250 mls/hr IV, Sodium Chloride 500 ml @ 999 mls/ hr IV. She went for CT scan of the brain. 1710: I went over everything with the patient's daughter, and the patient was resting comfortably. The patient will be staying as a patient until she is sober 1929: The patient is resting comfortably at this time. She is able to drink liquids. 1999: The patient will be signed out to Dr. Villa at the change of shift. Medical Decision The patient is a 72 year old female who presents to the ED for altered mental status. Differential diagnosis includes alcohol overdose, hypoglycemia, metastatic disease to the brain, benzodiazepine overdose, and cardiac ischemia. Lab results: Salicylate 2.7, acetaminophen less than 2, tox screen negative, alcohol 279, urine has trace ketones, white count of 8.5, stable H&H, normal TSH and LFTs, BUN 26, creatinine 1.4 This is a 72-year-old female patient brought to the emergency department today after having altered mental status and found sitting on the floor. The patient smelled of alcohol. She does have a history of alcohol abuse but quit drinking approximately 1.5 months ago according to the family. However, the patient received bad news last week that she was diagnosed with cervical cancer. There was a bottle of gin on the counter. The case will be signed out to Dr. Villa. She will need to sober up. Medication Reconcilliation Current Medication List: was personally reviewed by me Blood Pressure Screening Patient's blood pressure: Normal blood pressure Impression Primary Impression: Alcohol overdose Scribe Attestation The scribe's documentation has been prepared under my direction and personally reviewed by me in its entirety. I confirm that the note above accurately reflects all work, treatment, procedures, and medical decision making performed by me. Departure Information Dispostion Still a Patient Referrals Abhinav Sebastian III, M.D. (PCP) Patient Instructions My [facility] Problem Qualifiers Primary Impression: Alcohol overdose Encounter type: initial encounter Injury intent: undetermined intent Qualified Codes: T51.94XA - Toxic effect of unspecified alcohol, undetermined, initial encounter
[2017-11-22 16:14] LABS: URINE APPEARANCE CLEAR (CLEAR); URINE BILIRUBIN NEG (NEG); URINE COLOR YELLOW; URINE NITRITE NEG (NEG); UROBILINOGEN NEG (NEG)
[2017-11-22 16:17] LABS: ANISOCYTOSIS PRESENT; COMPLETE YES
[2017-11-22 16:18] LABS: ALT/SGPT 25 U/L (12-78); AST/SGOT 26 U/L (15-37); BLOOD UREA NITROGEN 26 mg/dl (7-18); BUN/CREATININE RATIO 18.3 (10-20); CALCIUM 9.3 mg/dl (8.5-10.1); CARBON DIOXIDE 15 mmol/L (21-32); CHLORIDE 98 mmol/L (98-107); CREATININE 1.43 mg/dl (0.60-1.20); GLUCOSE 70 mg/dl (70-99); POTASSIUM 3.6 mmol/L (3.5-5.1); SODIUM 135 mmol/L (136-145)
[2017-11-22 16:22] LABS: MANUAL MICROSCOPIC REQUIRED? NO; REVIEW REQ? NO
[2017-11-22 16:29] LABS: ACETAMINOPHEN < 2 ug/ml (10-30); ALKALINE PHOSPHATASE 113 U/L (45-117); THYROID STIMULATING HORMONE 0.856 uIu/ml (0.300-4.500)
--- NOTE | 2017-11-22 16:43 | DIAGNOSTIC IMAGING REPORT ---
CT HEAD WITHOUT CONTRAST (CT) CLINICAL HISTORY: Altered mental status COMPARISON STUDY: 06/08/2014 TECHNIQUE: Axial CT of the brain is performed from the vertex to the skull base. IV contrast was not administered for this examination. A dose lowering technique was utilized adhering to the principles of ALARA. CT DOSE: 537.48 mGy.cm FINDINGS: No intra or extra-axial mass lesions are visualized. There is no CT evidence of acute cortical infarction. There is no evidence of midline shift. There is no acute hemorrhage. No calvarial fractures are visualized. There are patchy white matter hypodensities likely on a small vessel basis. There is no evidence of pathologic ventricular dilatation. There is a cavum vellum interpositum. There is no evidence of acute sinusitis There is dense calcification within the right basal ganglia. There is frontal lobe atrophy. IMPRESSION: 1. No acute intracranial findings 2. Stable frontal lobe atrophy 3. Stable dense calcifications within the right basal ganglia Electronically signed by: Hardeep Lerma M.D. 11/22/2017 4:42 PM Dictated Date/Time: 11/22/2017 4:40 PM
[2017-11-22 16:54] LABS: BENZODIAZEPINE, URINE NEG (NEG); COCAINE,URINE NEG (NEG); PHENCYCLIDINE, URINE NEG (NEG)
[2017-11-22] MEDS ORDERED: LEVO-14 PO (17:56)
[2017-11-22] MEDS ORDERED: LSNP/30 PO (17:56)
[2017-11-22] MEDS ORDERED: ZNTT/150 PO (17:56)
[2017-11-22] MEDS ORDERED: CRS/10 PO (17:56)
[2017-11-22] MEDS ORDERED: LACT10SO17 PO (17:56)
[2017-11-22] MEDS ORDERED: PANT40TA PO (17:56)
[2017-11-22] MEDS ORDERED: IMD/2 PO (17:56)
[2017-11-22] MEDS ORDERED: DULO60CA44 PO (17:56)
[2017-11-22] MEDS ORDERED: THIA100T11 PO (17:56)
[2017-11-22] MEDS ORDERED: LORA-741 PO (17:56)
[2017-11-22] MEDS ORDERED: VNTHFA/IN INH (17:56)
--- NOTE | 2017-11-22 20:07 | EMERGENCY ROOM VISIT NOTE ---
ED Visit Note First contact with patient: 19:41 The patient was taken in signout from Dr. Nice at the change of shift. Please see that note for details. The patient was pending clearance of her alcohol intoxication. The patient's alcohol intoxication cleared. She is able to ambulate to the bathroom. Her was present. The patient and requests to be discharged. The patient feels comfortable with this. feels comfortable. Repeat BSG revealed no evidence of hypo-or severe hyperglycemia. The patient was discharged for close outpatient follow-up and to avoid any future alcohol use.
[2017-11-23 00:07] VITALS: BP 173/68; PULSE 100; O2SAT 95
== END 2017-11-23 00:10 | disposition home or self-care (01) ==
LOC: EDBD 15:08 → C.EDB 15:09
DX: T51.0X1A Toxic effect of ethanol, accidental (unintentional), initial encounter (principal); C53.9 Malignant neoplasm of cervix uteri, unspecified; G40.909 Epilepsy, unspecified, not intractable, without status epilepticus; F31.9 Bipolar disorder, unspecified; E11.9 Type 2 diabetes mellitus without complications; E78.5 Hyperlipidemia, unspecified; F17.200 Nicotine dependence, unspecified, uncomplicated; Z79.4 Long term (current) use of insulin; Z83.3 Family history of diabetes mellitus; Z82.49 Family history of ischemic heart disease and other diseases of the circulatory system; Z82.3 Family history of stroke

== ENCOUNTER → 2017-12-23 | Outpatient (CLI) | payer OTHER ==
[~2017-12-23] MED LIST changes: +CRS/10 PO; +CYAN100020 PO; +DULO60CA44 PO; +GADAVIST IV PRN; +IMD/2 PO; +LACT10SO17 PO; +LEVO-14 PO; -LISI-461 PO; +LORA-741 PO; +LSNP/30 PO; +ONDA8TAB6 PO; +PANT40TA PO; -PRLSR20 PO; +PROC1TAB5 PO; -RISP0.5T3 PO; +THIA100T11 PO; +VNTHFA/IN INH; +ZNTT/150 PO
--- NOTE | 2017-12-23 14:59 | DIAGNOSTIC IMAGING REPORT ---
Study: MRI pelvis HISTORY: Cervical carcinoma. FINDINGS: Cervical mass showing signal heterogeneity. This measures 3.0 x 3.2 cm in maximum transaxial dimension with a maximum length of 3.0 cm. There is distention of the central canal of the uterus which is filled with fluid measuring 6.3 x 4.5 cm. Mild impact upon the superior margin of the bladder. The lesion of the cervix contains several small cystic components but is well-circumscribed. There appears be no evidence for true localization. The rectal margin appears to be intact with unremarkable fascial planes. Bowel pattern is unremarkable. There is no significant pelvic adenopathy. Signal characteristics the osseous structures are considered unremarkable with no significant bone marrow replacing process. IMPRESSION: 1. Heterogeneous cervical mass having dimensions of 3.0 x 3.2 x 3.0 cm. 2. This appears to create obstructive changes to the central canal of the uterus which is distended with slightly complex fluid with measurements as noted. This is consistent with an obstructive hydrometrocolpos. 3. No evidence for localized or distant metastatic disease Electronically signed by: Tien Gutierrez M.D. 12/23/2017 2:58 PM Dictated Date/Time: 12/23/2017 2:48 PM
== END | disposition home or self-care (01) ==
LOC: C.MRI 13:24
PROVIDERS: ATTEND Physician Assistant Medical
DX: C53.8 Malignant neoplasm of overlapping sites of cervix uteri (principal)

== ENCOUNTER → 2018-01-11 | Day surgery (SDC) | payer OTHER ==
[2018-01-08 13:57] VITALS: BMI 28.0
[~2018-01-11] VITALS: Ht 154.9 cm; Wt 68.4 kg
[~2018-01-11] MED LIST changes: +ATROPINE SULFATE 0.1 MG/ML 5ML SYR IV PRN; +CEFAZOLIN SOD 2000MG/15 ML IV PUSH IV SCH; +EpHEDrine SULFATE INJ 50 MG/ML AMP IV PRN; +FENTANYL CITRATE INJ 50 MCG/1 ML 2 ML VIAL ONE; -GADAVIST IV PRN; +IBUPROFEN 600 MG TAB PO SCH; +LACTATED RINGER'S 1000ML 1,000 ML IV SCH; +MIDAZOLAM HCL 1 MG/ML 2ML VIAL ONE; +ONDANSETRON INJ 2 MG/ML 2 ML VIAL IV PRN; +ONDANSETRON INJ 2 MG/ML 2 ML VIAL ONE; +OXYCODONE/ACETAMINOPHEN 5-325 TAB PO PRN; +PROPOFOL IV EMULSION 10 MG/ML 20 ML VIAL IV ONE; +RANI150T85 PO; +SODIUM CHLORIDE 0.9% 1000ML 1,000 ML IV SCH; +THIA50TA3 PO; -ZNTT/150 PO
[2018-01-11 06:03] VITALS: BP 134/59; PULSE 85; TEMP 36.5; O2SAT 97; Ht 154.9 cm; Wt 68.4 kg
--- NOTE | 2018-01-11 06:50 | History & Physical Bridge Note ---
H&P Re-Evaluation Bridge Note: I have examined the patient, reviewed the History & Physical and in the interval since the performance of the History & Physical I have noted the following changes of clinical significance: No changes noted
--- NOTE | 2018-01-11 07:57 | [facility] Post Operative Brief Note ---
Immediate Operative Summary Operative Date Jan 11, 2018. Pre-Operative Diagnosis Need for intermediate central venous access Post-Operative Diagnosis Need for terminal supervisor central venous access Procedure(s) Performed Placement A-Port Tunneled Central Venous Catheter with Port, Left Subclavian Vein Surgeon Dr. Tien Arguello Cco & President Surgeon(s) none Estimated Blood Loss 5ml Findings Consistent with Post-Op Diagnosis Specimens none per surgeon Drains None Anesthesia Type MAC Complication(s) none Disposition Disposition: Recovery Room / PACU
--- NOTE | 2018-01-11 07:59 | Discharge Instructions ---
Discharge Instructions Date of Service Jan 11, 2018. Admission Reason for Admission: Circulatory System Disorder Discharge Discharge Diagnosis / Problem: Same Discharge Goals Goal(s): Improve disease control Activity Recommendations Activity Limitations: per Instructions/Follow-up section Lifting Limitations: no more than 10 pounds (with left arm for 7 days) MEDICATIONS: * Ibuprofen 600 mg every 6 hours with food * Tylenol 650 mg every 4 hours, as needed for pain SPECIAL CARE INSTRUCTIONS: * Your A-port may be used immediately. * May shower in 24 hours. Let water run over area and pat dry. * Leave op-site dressing on for 3 days and then remove. * Call the surgeon's office with any questions or concerns - (ex. temperature higher than 101 degrees F, excessive bleeding or pain). FOLLOW UP VISIT: If not already scheduled, please call the office to schedule a two week follow- up appointment. Office number . Current Hospital Diet Patient's current hospital diet: Discharge Diet Recommended Diet: Regular Diet Procedures Procedures Performed: Placement A-Port Tunneled Central Venous Catheter with Port, Left Subclavian Vein Pending Studies Studies pending at discharge: no Medical Emergencies . Who to Call and When: Medical Emergencies: If at any time you feel your situation is an emergency, please call 911 immediately. . Non-Emergent Contact Non-Emergency issues call your: Primary Care Provider, Surgeon Call Non-Emergent contact if: your pain is worsening, wound has increased redness, wound has increased pain . "Provider Documentation" section prepared by Tien Arguello. . VTE Core Measure Inpt VTE Proph given/why not?: Treatment not indicated
--- NOTE | 2018-01-11 08:28 | DIAGNOSTIC IMAGING REPORT ---
CHEST ONE VIEW PORTABLE HISTORY: S/P placement of Aport COMPARISON: Chest 06/03/2017. FINDINGS: The lungs are clear. The heart is borderline enlarged. This remains unchanged. No pleural effusions. No pneumothorax. Old, healed bilateral rib fractures. Left subclavian Port-A-Cath terminates in the distal SVC. Postoperative changes within the right humeral head. Old, healed left clavicle. IMPRESSION: Left subclavian Port-A-Cath terminates in the distal SVC. No pneumothorax. Electronically signed by: Fausto Angel M.D. 01/11/2018 8:26 AM Dictated Date/Time: 01/11/2018 8:25 AM
--- NOTE | 2018-01-11 08:28 | OPERATIVE REPORT ---
DATE OF OPERATION: 01/11/2018 PREOPERATIVE DIAGNOSIS: Need for long-term central venous access. POSTOPERATIVE DIAGNOSIS: Same. PROCEDURE: Placement of A-port tunneled central venous access catheter with port. SURGEON: Tien Arguello MD. FINDINGS: The tip of the catheter was placed near the junction of the superior vena cava and right atrium. There was good blood return and it was easily flushed without leaking. TECHNIQUE: The patient was given intravenous sedation and the area was prepped and draped in the usual sterile fashion. The skin and subcutaneous tissue in the infraclavicular area were anesthetized with 3% Nesacaine. The left subclavian vein was entered on the first attempt and the wire passed with ease. The tip of the wire was confirmed in the right atrium by fluoroscopy. A small incision was made at the exit site of the wire and a pocket in the subcutaneous area was created to assure soft turn in the catheter. The site for the port was chosen and the skin and subcutaneous tissue superior to that area were anesthetized with 3% Nesacaine. Skin incision was made and was carried down through the subcutaneous tissue to the prepectoral fascia. Hemostasis was obtained using electrocautery. A prepectoral pocket was created inferior to the incision and the port fit nicely. The introducer sheath device was then passed over the wire under fluoroscopic guidance. The introducer and wire were removed and the catheter was passed through the sheath under fluoroscopic guidance and the tip of the catheter was seen to enter the right atrium. The sheath was peeled. The catheter was then tunneled from the infraclavicular incision to the port incision. Fluoroscopy was used to size the catheter. The catheter was cut to size and then attached to the port with ease. The port was accessed and there was good blood return and it was easily flushed. The port was secured to the prepectoral fascia with interrupted 2-0 Prolene sutures. The port incision was closed with running 2-0 Vicryl to the deep subcutaneous tissue, running 3-0 Vicryl to the superficial subcutaneous tissue and a running 4-0 Monocryl in a subcuticular fashion for the skin. The infraclavicular incision was closed with interrupted subcuticular suture of 4-0 Monocryl. The estimated blood loss was 5 mL. Sponge, needle and instrument counts were correct prior to closure. The skin was cleansed, dried and a dressing placed. I attest to the content of the Intraoperative Record and any orders documented therein. Any exception s are noted below.
[2018-01-11 08:35] VITALS: BP 156/69; PULSE 69; TEMP 37.1; O2SAT 96
--- NOTE | 2018-01-11 08:44 | Anesthesiology Progress Note ---
Anesthesia Post Op Note Date & Time Jan 11, 2018 at 08:44 Vital Signs Pain Intensity: 0 Vital Signs Past 12 Hours Date Time Temp Pulse Resp B/P (MAP) Pulse Ox O2 Delivery O2 Flow Rate FiO2 01/11/18 08:30 72 12 145/59 94 Room Air 01/11/18 08:20 36.2 74 12 136/57 94 Room Air 01/11/18 08:10 72 13 128/44 98 Room Air 01/11/18 08:01 36.2 76 15 114/51 97 Room Air 01/11/18 06:03 36.5 85 20 134/59 (84) 97 Room Air Notes Mental Status: alert / awake / arousable, participated in evaluation Pt Amnestic to Procedure: Yes Nausea / Vomiting: adequately controlled Pain: adequately controlled Airway Patency, RR, SpO2: stable & adequate BP & HR: stable & adequate Hydration State: stable & adequate Anesthetic Complications: no major complications apparent
[2018-01-11 09:05] VITALS: BP 157/66; PULSE 72; O2SAT 97
[2018-01-11 09:40] VITALS: BP 140/63; PULSE 77; TEMP 36.8; O2SAT 94
== END | disposition home or self-care (01) ==
LOC: C.ACU 05:29
PROVIDERS: ATTEND Surgery
DX: C53.8 Malignant neoplasm of overlapping sites of cervix uteri (principal); E78.5 Hyperlipidemia, unspecified; E11.9 Type 2 diabetes mellitus without complications; E03.9 Hypothyroidism, unspecified; F17.200 Nicotine dependence, unspecified, uncomplicated; F41.9 Anxiety disorder, unspecified; F32.9 Major depressive disorder, single episode, unspecified; F90.9 Attention-deficit hyperactivity disorder, unspecified type; F42.9 Obsessive-compulsive disorder, unspecified; Z79.4 Long term (current) use of insulin; Z79.899 Other long term (current) drug therapy; Z88.8 Allergy status to other drugs, medicaments and biological substances; Z88.6 Allergy status to analgesic agent

== ENCOUNTER → 2018-02-10 | Day surgery (SDC) | payer OTHER ==
[2018-02-03 15:04] VITALS: BMI 27.0
--- NOTE | 2018-02-03 15:20 | PAT Medication Instructions ---
Service Date Feb 03, 2018. Current Home Medication List Albuterol Hfa (Ventolin Hfa), 2 PUFFS INH QID Duloxetine Hcl (Cymbalta), 90 MG PO QAM Ferrous Gluconate (Ferrous Gluconate), 324 MG PO BID Insulin Glargine (Lantus Solostar), 50 UNITS SC HS Lactulose (Chronulac), 30 ML PO BID PRN for SEVERE CONSTIPATION Lamotrigine (Lamictal), 200 MG PO HS Levetiracetam (Keppra), 1,000 MG PO BID Levocetirizine Dihydrochloride (Levocetirizine Dihydrochl), 5 MG PO QPM Levothyroxine Sodium (Levothyroxine Sodium), 25 MCG PO QAM Lisinopril (Zestril), 30 MG PO QAM Loperamide Hcl (Imodium), 2 MG PO QID PRN for Diarrhea Lorazepam (Ativan), 0.5 MG PO TID PRN for Anxiety Magnesium Oxide (Mag-Ox), 400 MG PO QID Multivitamin (Multivitamin), 1 TAB PO QAM Ondansetron Hcl (Zofran), 8 MG PO TID PRN for Nausea Pantoprazole (Protonix), 40 MG PO BID Prochlorperazine Maleate (Compazine), 10 MG PO Q6H PRN for Nausea or Vomiting Ranitidine (Zantac), 150 MG PO BID Rosuvastatin Calcium (Crestor), 10 MG PO QAM Sitagliptin-Metformin Hcl (Janumet), Unknown Dose PO BID Thiamine Hcl (Vitamin B-1), 100 MG PO QAM [magnesium cl], Unknown Dose PO BID Medication Instructions For Your Scheduled Surgery - Hold the following medications the morning of surgery: Ferrous Gluconate (Ferrous Gluconate), 324 MG PO BID Lactulose (Chronulac), 30 ML PO BID PRN for SEVERE CONSTIPATION Lisinopril (Zestril), 30 MG PO QAM Loperamide Hcl (Imodium), 2 MG PO QID PRN for Diarrhea Magnesium Oxide (Mag-Ox), 400 MG PO QID Multivitamin (Multivitamin), 1 TAB PO QAM Sitagliptin-Metformin Hcl (Janumet), Unknown Dose PO BID Thiamine Hcl (Vitamin B-1), 100 MG PO QAM [magnesium cl], Unknown Dose PO BID - Take the following medications the morning of surgery with a sip of water: Albuterol Hfa (Ventolin Hfa), 2 PUFFS INH QID (and bring it with you to the hospital) Duloxetine Hcl (Cymbalta), 90 MG PO QAM Levetiracetam (Keppra), 1,000 MG PO BID Levothyroxine Sodium (Levothyroxine Sodium), 25 MCG PO QAM Lorazepam (Ativan), 0.5 MG PO TID PRN for Anxiety (if needed) Ondansetron Hcl (Zofran), 8 MG PO TID PRN for Nausea (if needed) Pantoprazole (Protonix), 40 MG PO BID Prochlorperazine Maleate (Compazine), 10 MG PO Q6H PRN for Nausea or Vomiting ( if needed) Ranitidine (Zantac), 150 MG PO BID Rosuvastatin Calcium (Crestor), 10 MG PO QAM - Take the following medications as scheduled the night before surgery: Albuterol Hfa (Ventolin Hfa), 2 PUFFS INH QID Ferrous Gluconate (Ferrous Gluconate), 324 MG PO BID Insulin Glargine (Lantus Solostar), 50 UNITS SC HS Lactulose (Chronulac), 30 ML PO BID PRN for SEVERE CONSTIPATION (if needed) Lamotrigine (Lamictal), 200 MG PO HS Levetiracetam (Keppra), 1,000 MG PO BID Levocetirizine Dihydrochloride (Levocetirizine Dihydrochl), 5 MG PO QPM Loperamide Hcl (Imodium), 2 MG PO QID PRN for Diarrhea (if needed) Lorazepam (Ativan), 0.5 MG PO TID PRN for Anxiety (if needed) Magnesium Oxide (Mag-Ox), 400 MG PO QID Ondansetron Hcl (Zofran), 8 MG PO TID PRN for Nausea (if needed) Pantoprazole (Protonix), 40 MG PO BID Prochlorperazine Maleate (Compazine), 10 MG PO Q6H PRN for Nausea or Vomiting ( if needed) Ranitidine (Zantac), 150 MG PO BID Sitagliptin-Metformin Hcl (Janumet), Unknown Dose PO BID [magnesium cl], Unknown Dose PO BID If you have any questions please call us at [phone] or [phone] or [phone]
--- NOTE | 2018-02-08 16:07 | Radiation Oncology Follow-Up ---
Radiation Oncology Follow-Up Date of Visit Feb 08, 2018. Reason For Visit To undergo HDR treatment with tandem and ovoids. Treatment #1 Radiation Completion Date Completing external beam therapy Diagnosis (1) Cervical adenocarcinoma Status: Acute Onset Date: 11/04/2017 Stage: ll Permanent Comment: Postmenopausal vaginal bleeding Ultrasound revealing a large cervical mass Status post biopsy 11/04/2017 Invasive adenocarcinoma of the cervix Plan for definitive radiation and chemotherapy. Last Edited By: Payton Steele on Dec 18, 2017 11:43 History of Present Illness Ms. Rowland is a 72-year-old female who recently presented with postmenopausal bleeding. The patient noted episodes of spotting with wiping which started in September 2017. -10/21/2017 - Patient was seen by Dr. Still from gynecology. Examination revealed a friable/punctate vessels on the anterior lip of the cervix which were slightly losing. Transvaginal ultrasound completed on same day which revealed hyperechoic lobular hypervascular appearance of the cervix with no thickening noted in the endometrium. -11/04/2017 - Patient underwent colposcopy on by Dr. Still which revealed severe dysplasia of the cervix. Multiple biopsies were obtained of the cervix on which revealed invasive adenocarcinoma that was well differentiated. The tumor is strongly p16 positive. -11/19/2017 - Patient referred to Dr. Shaila Luevano from gynecology oncology in [place], [place]. Examination revealed carcinoma involving the upper third of the vagina on the right side; a cervical lesion was noted that measure 5-6 cm in size with parametrial involvement also noted. Dr. Luevano stage the patient has FIGO stage IIB. -11/26/2017 - PET/CT - IMPRESSION: 1. Large cervical mass with hypermetabolic change consistent with ultrasound identified mass 2. No evidence of significant ascites with small collection noted laterally adjacent to the liver 3. No evidence of pathologic lymph nodes 4. Mildly prominent distal ureters, likely secondary to the cervical mass 5. Benign, senescent, and posttraumatic changes on CT is noted including to vertebral deformities, left femoral fracture, right inferior pubic ramus fracture, multiple bilateral rib fractures among others as outlined. -12/09/2017 - Patient seen by medical oncology, Dr. Viraj Atkins. Dr. Atkins recommended concurrent pelvic chemoradiation therapy followed by brachytherapy ( also recommended by Dr. Luevano). We are now seeing the patient in consultation discuss the role of radiation therapy. Interim History She has been receiving external beam radiation therapy. She is tolerating this well. She does have side effect of diarrhea. Before that she is taking Imodium. She has not had any issues with abdominal pain. She has no nausea or vomiting. She has continued follow-up with Dr. Mechelle Luevano. Treatment sleeve placement on February 09, 2018. She has had no change in urination. She will complete 25 fraction of external beam radiation therapy. Allergies Coded Allergies: Aspirin (Verified Allergy, Intermediate, INTESTINAL BLEEDING AND HIVES, 02/03/18) Prednisone (Verified Allergy, Intermediate, HIVES; TREMORS, 02/03/18) Lidocaine (Verified Allergy, Unknown, edema face and lips, 02/03/18) Simethicone (Verified Allergy, Unknown, Hives/swelling, 02/03/18) Citalopram (Verified Adverse Reaction, Unknown, tremors, 02/05/18) Clonazepam (Verified Adverse Reaction, Unknown, Agitated, 02/05/18) Magnesium Citrate (Verified Adverse Reaction, Unknown, HIVES AND SWELLING , 02/03/18) pt currently takes magnesium routinely and has had infusions...no reactions Metoclopramide (Verified Adverse Reaction, Unknown, Leg pains, 02/05/18) Onion (Verified Adverse Reaction, Unknown, nausea/vomiting, 02/05/18) Rosiglitazone (Verified Adverse Reaction, Unknown, Anemia/swelling/seizure /memory loss, 02/05/18) Simvastatin (Verified Adverse Reaction, Unknown, Leg pains, 02/05/18) Sulfamethoxazole w/Trimethoprim (Verified Adverse Reaction, Unknown, Nausea/vomiting, 02/05/18) Valproic Acid (Verified Adverse Reaction, Unknown, weakness/ataxia/ confusion, 02/05/18) Home Medications Scheduled Albuterol Hfa (Ventolin Hfa), 2 PUFFS INH QID Duloxetine Hcl (Cymbalta), 90 MG PO QAM Ferrous Gluconate (Ferrous Gluconate), 324 MG PO BID Insulin Glargine (Lantus Solostar), 50 UNITS SC HS Lamotrigine (Lamictal), 200 MG PO HS Levetiracetam (Keppra), 1,000 MG PO BID Levocetirizine Dihydrochloride (Levocetirizine Dihydrochl), 5 MG PO QPM Levothyroxine Sodium (Levothyroxine Sodium), 25 MCG PO QAM Lisinopril (Zestril), 30 MG PO QAM Magnesium Oxide (Mag-Ox), 400 MG PO QID Multivitamin (Multivitamin), 1 TAB PO QAM Pantoprazole (Protonix), 40 MG PO BID Ranitidine (Zantac), 150 MG PO BID Rosuvastatin Calcium (Crestor), 10 MG PO QAM Sitagliptin-Metformin Hcl (Janumet), Unknown Dose PO BID Thiamine Hcl (Vitamin B-1), 100 MG PO QAM [Mag Iv Infusions ], 1 DOSE UD Scheduled PRN Lactulose (Chronulac), 30 ML PO BID PRN for SEVERE CONSTIPATION Loperamide Hcl (Imodium), 2 MG PO QID PRN for Diarrhea Lorazepam (Ativan), 0.5 MG PO TID PRN for Anxiety Ondansetron Hcl (Zofran), 8 MG PO TID PRN for Nausea Prochlorperazine Maleate (Compazine), 10 MG PO Q6H PRN for Nausea or Vomiting Review of Systems Gastrointestinal: Symptoms: Diarrhea (Associated with radiation therapy. She is taking Metamucil and Imodium. She has had no nausea or vomiting) Oral: Symptoms: No Problems Respiratory: Symptoms: WNL Urinary: Symptoms: WNL Physical Exam Fatigue: None General Appearance: no apparent distress Eyes: normal inspection, EOMI ENT: normal ENT inspection, hearing grossly normal Respiratory/Chest: lungs clear, no respiratory distress, no accessory muscle use Cardiovascular: regular rate, rhythm, no gallop, no murmur Abdomen: non tender, soft Extremities: no pedal edema Neurologic/Psychiatric: no motor/sensory deficits, alert, + depressed affect Skin: warm/dry Pain Management Patient Reports Pain: No Initial Pain Intensity: 0.0 Pain Management Plan She denies pain therefore requires no pain management. Laboratory Laboratory Results: were reviewed, and pertinent findings noted in HPI Pathology Pathology Results: were reviewed, and pertinent findings noted in HPI Imaging Imaging Studies: were reviewed, and pertinent findings noted in HPI Assessment & Plan Plan: She will complete a total of 25 external beam treatments. It is planned that she will have 5 HDR treatments. Treatments will be given using tandem and ovoids. These will be placed in the operating room. We will have pain medication available following the placement of the tandem and ovoids and while waiting for completion of treatment plans. This will be in the form of Dilaudid. This will be requested from the pharmacy. She will continue treatment of the diarrhea with Metamucil and Imodium. The treatment sleeve will have been placed by Dr. Luevano. Total Time In Follow-Up I spent 20 minutes speaking to the patient and performing examination. I spent 15 minutes reviewing information and completing this note. AK Copy To Viraj Atkins M.D.; Abhinav Sebastian III, M.D.; Mechelle Luevano D.O.; Kym Still M.D.
[2018-02-10] VITALS (9 sets, daily range): BP systolic 133–179; BP diastolic 60–79; PULSE 68–83; TEMP 36.4–36.9; O2SAT 93–99; Ht 157.5 cm; Wt 67.8 kg
[~2018-02-10] VITALS: Ht 157.5 cm; Wt 67.8 kg
[~2018-02-10] MED LIST changes: -CEFAZOLIN SOD 2000MG/15 ML IV PUSH IV SCH; -CYAN100020 PO; -CYM/30 PO; +FENTANYL CITRATE INJ 50 MCG/1 ML 2 ML VIAL IV PRN; +HYDROmorphone INJ 0.5 MG/0.5 ML SYR XX SCH; -IBUPROFEN 600 MG TAB PO SCH; +LABETALOL HCL IV 5 MG/ML 20ML IV ONE; +LABETALOL HCL IV 5 MG/ML 20ML IV PRN; +LIDOCAINE 2% 20 MG/ML 5ML SYR IV ONE; +MAG; +NALOXONE HCL 0.4 MG/1 ML VIAL/CARP IV PRN; +ONDA-170 PO; -ONDA8TAB6 PO; -OXYCODONE/ACETAMINOPHEN 5-325 TAB PO PRN; +OXYCODONE/ACETAMINOPHEN 5-325 TAB PO SCH; +PROMETHAZINE HCL INJ 12.5 MG in SODIUM CHLORIDE 0.9% 50ML 50 ML IV PRN; -SODIUM CHLORIDE 0.9% 1000ML 1,000 ML IV SCH; -THIA50TA3 PO
[2018-02-10 06:33] LABS: HEMATOCRIT 30.9 % (37-47); HEMOGLOBIN 10.3 g/dL (12.0-16.0); MEAN CELL VOLUME 86.6 fL (80-100); MEAN CORPUSCULAR HEMOGLOBIN 28.9 pg (25-34); RED CELL DISTRIBUTION WIDTH CV 19.1 % (11.5-14.5); RED CELL DISTRIBUTION WIDTH SD 57.8 fL (36.4-46.3); WHITE BLOOD COUNT 1.52 K/uL (4.8-10.8)
[2018-02-10 07:02] LABS: EOS ABS # 0.03 K/uL (0-0.5); IG# 0.01 K/uL (0.00-0.02); LYMPH % 13.2 %; MEAN CORPUSCULAR HGB CONC 33.3 g/dl (32-36); MEAN PLATELET VOLUME 8.1 fL (7.4-10.4); MONO % 8.6 %; MONO ABS # 0.13 K/uL (0.11-0.59); NEUT % 75.5 %; NEUT ABS # 1.15 K/uL (1.4-6.5); PLATELET COUNT 43 K/uL (130-400)
--- NOTE | 2018-02-10 09:18 | [facility] Operative Report ---
Operative Report Operative Date Feb 10, 2018. Pre-Operative Diagnosis Cervical Adenocarcinoma Post-Operative Diagnosis Cervical Adenocarcinoma Procedure(s) Performed Placement of Tandem/Ovoid HDR Applicator for Treatment of Cervical Cancer Surgeon Dr Atkins Chha Surgeon(s) Payton Steele PA-C Estimated Blood Loss 0CC Findings Cervical sleeve in place and sutured to vagina/cervix. Minimal blood in the vaginal vault most likely from previous procedure prior to initiating procedure. No palpable clinical disease involving the cervix/vagina. Specimens None per surgeon Drains Manuel Catheter Urinary Anesthesia General Complication(s) None Disposition Recovery Room / PACU Indications 72 yo Female with FIGO stage IIB cervical adenocarcinoma (parametrial involvement, upper 1/3 vaginal involvement). She has elected for pelvic chemoradiation and Tandem/Ovoid HDR Brachytherapy. She now presents for tandem/ ovoid HDR brachytherapy. Description of Procedure The patient was seen today for her 1st of a planned 5 insertions. The patient was identified in the operating room and a timeout was performed. The patient was placed in stirrups and the packing that was placed to prevent movement of the cervical sleeve was removed. The area was cleansed with iodine. A Manuel catheter was placed. The cervical sleeve was identified and a #1 tandem was inserted into the cervical sleeve. The left ovoid was then placed followed by the right ovoid. These 3 devices were connected and secured. The ovoids were spread and secured. Alatus vaginal packing balloons were placed anteriorly/ posteriorly and filled with 30 mL each to provide adequate bladder and rectal packing. Radiology was then called for imaging. An anterior image was taken showing good orientation of the tandem and ovoid. A lateral image was then obtained showing excellent placement without significant rotation. The insertion procedure was completed and the patient was taken to the recovery room. There was minimal evidence of excoriation of the introitus secondary to her treatment. There was no significant blood loss during the procedure. The patient will be brought to our department where she will undergo a simulation and following completion of treatment planning will receive her first fraction of HDR brachytherapy. I attest to the content of the Intraoperative Record and any orders documented therein. Any exceptions are noted below.
--- NOTE | 2018-02-10 09:34 | Anesthesiology Progress Note ---
Anesthesia Post Op Note Date & Time Feb 10, 2018 at 09:34 Vital Signs Pain Intensity: 0 Vital Signs Past 12 Hours Date Time Temp Pulse Resp B/P (MAP) Pulse Ox O2 Delivery O2 Flow Rate FiO2 02/10/18 09:25 71 13 143/66 97 Nasal Cannula 2 02/10/18 09:15 82 17 173/73 99 Nasal Cannula 2 02/10/18 09:05 80 14 176/71 100 Oxymask 10 02/10/18 08:55 76 12 175/81 100 Oxymask 10 02/10/18 08:48 37.0 88 16 163/65 99 Oxymask 10 02/10/18 06:18 36.4 83 18 133/61 (85) 96 Room Air Notes Mental Status: alert / awake / arousable, participated in evaluation Pt Amnestic to Procedure: Yes Nausea / Vomiting: adequately controlled Pain: adequately controlled Airway Patency, RR, SpO2: stable & adequate BP & HR: stable & adequate Hydration State: stable & adequate Anesthetic Complications: no major complications apparent
--- NOTE | 2018-02-10 09:44 | DIAGNOSTIC IMAGING REPORT ---
PELVIS 1 OR 2 VIEWS ROUTINE HISTORY: 72 years-old Female INSERTION OF TANDEM OVOIDS history of cervical cancer with tandem and ovoid procedure. COMPARISON: Pelvic MRI 12/23/2017 TECHNIQUE: 2 spot fluoroscopic images of the pelvis were obtained utilizing 13.0 seconds fluoroscopy time. FINDINGS: Images demonstrate a metallic device overlying the mid pelvis which projects anteriorly within the region of the cervix/uterus with two adjacent metallic devices within the adjacent pelvic tissues. IMPRESSION: Fluoroscopic assistance as above. Please see procedural report for further details. The above report was generated using voice recognition software. It may contain grammatical, syntax or spelling errors. Electronically signed by: Ciro Ortega M.D. 02/10/2018 9:42 AM Dictated Date/Time: 02/10/2018 9:39 AM
[2018-02-10] MEDS: HYDROmorphone INJ 0.5 MG/0.5 ML SYR IV PRN ×2 (10:10→12:40)
== END | disposition home or self-care (01) ==
LOC: C.ACU 05:38
PROVIDERS: ATTEND Radiology Radiation Oncology
DX: C53.9 Malignant neoplasm of cervix uteri, unspecified (principal); I10 Essential (primary) hypertension; E11.9 Type 2 diabetes mellitus without complications; K21.9 Gastro-esophageal reflux disease without esophagitis; Z88.6 Allergy status to analgesic agent; Z88.8 Allergy status to other drugs, medicaments and biological substances; Z88.2 Allergy status to sulfonamides; Z91.018 Allergy to other foods; Z79.4 Long term (current) use of insulin; Z79.899 Other long term (current) drug therapy

== ENCOUNTER → 2018-02-12 | Day surgery (SDC) | payer OTHER ==
[2018-02-03 15:40] VITALS: Ht 157.5 cm; Wt 67.8 kg
[2018-02-12] VITALS (9 sets, daily range): BP systolic 129–161; BP diastolic 45–80; PULSE 68–78; TEMP 36.7–36.9; O2SAT 95–100
[~2018-02-12] VITALS: Ht 157.5 cm; Wt 67.8 kg
[~2018-02-12] MED LIST changes: +CONRAY 60% 50 ML VIAL ONE; -HYDROmorphone INJ 0.5 MG/0.5 ML SYR XX SCH; -LIDOCAINE 2% 20 MG/ML 5ML SYR IV ONE; -ONDANSETRON INJ 2 MG/ML 2 ML VIAL IV PRN; -ONDANSETRON INJ 2 MG/ML 2 ML VIAL ONE; +OXYC-57 PO; +OXYCODONE/ACETAMINOPHEN 5-325 TAB PO PRN; -OXYCODONE/ACETAMINOPHEN 5-325 TAB PO SCH; -PROMETHAZINE HCL INJ 12.5 MG in SODIUM CHLORIDE 0.9% 50ML 50 ML IV PRN
[2018-02-12 06:09] LABS: HEMATOCRIT 35.8 % (37-47); HEMOGLOBIN 11.7 g/dL (12.0-16.0); MEAN CELL VOLUME 86.9 fL (80-100); MEAN CORPUSCULAR HEMOGLOBIN 28.4 pg (25-34); MEAN CORPUSCULAR HGB CONC 32.7 g/dl (32-36); MEAN PLATELET VOLUME 7.8 fL (7.4-10.4); PLATELET COUNT 66 K/uL (130-400); RED CELL DISTRIBUTION WIDTH CV 19.1 % (11.5-14.5); RED CELL DISTRIBUTION WIDTH SD 59.9 fL (36.4-46.3); WHITE BLOOD COUNT 2.01 K/uL (4.8-10.8)
[2018-02-12 06:35] LABS: EOS % 3.5 %; EOS ABS # 0.07 K/uL (0-0.5); IG# 0.01 K/uL (0.00-0.02); LYMPH % 16.4 %; LYMPH ABS # 0.33 K/uL (1.2-3.4); MONO % 8.5 %; MONO ABS # 0.17 K/uL (0.11-0.59); NEUT % 71.1 %; NEUT ABS # 1.43 K/uL (1.4-6.5)
--- NOTE | 2018-02-12 09:45 | Anesthesiology Progress Note ---
Anesthesia Post Op Note Date & Time Feb 12, 2018 at 09:45 Vital Signs Pain Intensity: 3 Vital Signs Past 12 Hours Date Time Temp Pulse Resp B/P (MAP) Pulse Ox O2 Delivery O2 Flow Rate FiO2 02/12/18 09:30 36.2 73 22 172/66 97 Nasal Cannula 2 02/12/18 09:20 70 12 157/68 92 Nasal Cannula 2 02/12/18 09:10 73 14 184/68 99 Oxymask 10 02/12/18 09:00 80 13 176/71 99 Oxymask 10 02/12/18 08:50 36.1 87 17 169/73 97 Oxymask 10 02/12/18 06:24 36.8 78 20 135/45 (75) 96 Room Air Notes Mental Status: alert / awake / arousable, participated in evaluation Pt Amnestic to Procedure: Yes Nausea / Vomiting: adequately controlled Pain: adequately controlled Airway Patency, RR, SpO2: stable & adequate BP & HR: stable & adequate Hydration State: stable & adequate Anesthetic Complications: no major complications apparent
--- NOTE | 2018-02-12 09:53 | [facility] Operative Report ---
Operative Report Operative Date Feb 12, 2018. Pre-Operative Diagnosis Cervial Adenocarcinoma Post-Operative Diagnosis Cervical Adenocarcinoma Procedure(s) Performed Placement of Tandem/Ovoid HDR Applicator for Treatment of Cervical Cancer Surgeon Kane Atkins MD Director Counseling Bureau Surgeon(s) Payton Steele PA-C Estimated Blood Loss 20CC Findings Cervical sleeve in place and sutured to vagina/cervix. Minimal blood in the vaginal vault most likely from previous procedure prior to initiating procedure. No palpable clinical disease involving the cervix/vagina. On examination, the mucosa was very friable and some oozing/bleeding was noted within the vagina. Fluids None Specimens None per surgeon Drains Manuel Cather (Urinary) Anesthesia General Complication(s) Minimal bleeding noted during the procedure due to mucosal inflammation within the vaginal vault from previous radiation therapy which subsided before completing the procedure. Disposition Recovery Room / PACU Indications 72 yo Female with FIGO stage IIB cervical adenocarcinoma (parametrial involvement, upper 1/3 vaginal involvement). She has elected for pelvic chemoradiation and Tandem/Ovoid HDR Brachytherapy. She now presents for tandem/ ovoid HDR brachytherapy. Description of Procedure The patient was seen today for her 2nd of a planned 5 insertions. The patient was identified in the operating room and a timeout was performed. The patient was placed in stirrups and the packing that was placed to prevent movement of the cervical sleeve was removed. The area was cleansed with iodine. A Manuel catheter was placed. The cervical sleeve was identified and a #1 tandem was inserted into the cervical sleeve. The left ovoid was then placed followed by the right ovoid. These 3 devices were connected and secured. The ovoids were spread and secured. Alatus vaginal packing balloons were placed anteriorly/ posteriorly and filled with 30 mL each to provide adequate bladder and rectal packing. Radiology was then called for imaging. An anterior image was taken showing good orientation of the tandem and ovoid. A lateral image was then obtained showing excellent placement without significant rotation. The insertion procedure was completed and the patient was taken to the recovery room. There was minimal evidence of excoriation of the introitus secondary to her treatment. There was no significant blood loss during the procedure. The patient will be brought to our department where she will undergo a simulation and following completion of treatment planning will receive her second fraction of HDR brachytherapy. I attest to the content of the Intraoperative Record and any orders documented therein. Any exceptions are noted below.
[2018-02-12] MEDS: HYDROmorphone INJ 0.5 MG/0.5 ML SYR IV PRN ×2 (11:07→11:35)
== END | disposition home or self-care (01) ==
LOC: C.ACU 05:38
PROVIDERS: ATTEND Radiology Radiation Oncology
DX: C53.9 Malignant neoplasm of cervix uteri, unspecified (principal); D50.9 Iron deficiency anemia, unspecified; E11.9 Type 2 diabetes mellitus without complications; E03.9 Hypothyroidism, unspecified; G40.909 Epilepsy, unspecified, not intractable, without status epilepticus; F90.9 Attention-deficit hyperactivity disorder, unspecified type; F32.9 Major depressive disorder, single episode, unspecified; E78.5 Hyperlipidemia, unspecified; F60.5 Obsessive-compulsive personality disorder

== ENCOUNTER → 2018-02-18 | Day surgery (SDC) | payer OTHER ==
[2018-02-03 15:51] VITALS: BMI 27.0
[2018-02-18] VITALS (7 sets, daily range): BP systolic 130–186; BP diastolic 63–73; PULSE 68–102; TEMP 36.1–36.9; O2SAT 93–100; Ht 157.5 cm; Wt 67.8 kg
[~2018-02-18] VITALS: Ht 157.5 cm; Wt 67.8 kg
[~2018-02-18] MED LIST changes: -CONRAY 60% 50 ML VIAL ONE; +DEXAMETHASONE SOD INJ 4 MG/ML VIAL ONE; +DEXTROSE 50% 50 ML SYR ONE; +ESTROGEN TOP; +EpHEDrine SULFATE 50MG/5ML SYR ONE; -FENTANYL CITRATE INJ 50 MCG/1 ML 2 ML VIAL IV PRN; +HYDROmorphone INJ 0.5 MG/0.5 ML SYR IV PRN; +HYDROmorphone INJ 0.5 MG/0.5 ML SYR IV STA; -LABETALOL HCL IV 5 MG/ML 20ML IV ONE; +LIDOCAINE HCL 2% 2 ML VIAL (20MG/ML) ONE; +LISI30TA3 PO; -LSNP/30 PO; +MEPERIDINE HCL 25 MG/ML CARP IV PRN; -NALOXONE HCL 0.4 MG/1 ML VIAL/CARP IV PRN; +ONDANSETRON INJ 2 MG/ML 2 ML VIAL IV PRN; +ONDANSETRON INJ 2 MG/ML 2 ML VIAL ONE
[2018-02-18 09:10] LABS: HEMATOCRIT 30.9 % (37-47); HEMOGLOBIN 10.3 g/dL (12.0-16.0); MEAN CORPUSCULAR HEMOGLOBIN 29.7 pg (25-34); MEAN CORPUSCULAR HGB CONC 33.3 g/dl (32-36); MEAN PLATELET VOLUME 7.5 fL (7.4-10.4); PLATELET COUNT 71 K/uL (130-400); RED CELL DISTRIBUTION WIDTH CV 20.1 % (11.5-14.5); RED CELL DISTRIBUTION WIDTH SD 64.2 fL (36.4-46.3); WHITE BLOOD COUNT 1.15 K/uL (4.8-10.8)
[2018-02-18 09:14] LABS: EOS % 1.7 %; EOS ABS # 0.02 K/uL (0-0.5); LYMPH % 15.7 %; LYMPH ABS # 0.18 K/uL (1.2-3.4); MONO % 14.8 %; MONO ABS # 0.17 K/uL (0.11-0.59); NEUT % 67.8 %; NEUT ABS # 0.78 K/uL (1.4-6.5)
--- NOTE | 2018-02-18 11:24 | [facility] Post Operative Brief Note ---
Immediate Operative Summary Operative Date Feb 18, 2018. Pre-Operative Diagnosis Cervical Cancer Post-Operative Diagnosis Cervical Cancer Procedure(s) Performed Insertion of Tandem and Ovoids for HDR Brachytherapy Surgeon Dr. Kane Atkins Joint Setter Surgeon(s) Payton Steele PA-C Estimated Blood Loss 0 cc Findings Cervical axel sleeve in place. Tandem/ovoid applicator and Alatus Balloons properly placed. Specimens no specimens per surgeon Drains Manuel cather urine Anesthesia General Complication(s) None Disposition Recovery Room / PACU
--- NOTE | 2018-02-18 11:31 | [facility] Operative Report ---
Operative Report Operative Date Feb 18, 2018. Pre-Operative Diagnosis Cervical Cancer Post-Operative Diagnosis Cervical Cancer Procedure(s) Performed Placement of Tandem/Ovoid HDR Applicator for Treatment of Cervical Cancer Surgeon Dr. Kane Atkins Drugless Physician Surgeon(s) Payton Steele PA-C Estimated Blood Loss 0ml Findings Cervical sleeve in place and sutured to vagina/cervix. Minimal blood in the vaginal vault most likely from previous procedure prior to initiating procedure. No palpable clinical disease involving the cervix/vagina. Specimens no specimens per surgeon Drains Manuel catheter urine Anesthesia General Complication(s) None Disposition Recovery Room / PACU Indications 72 yo Female with FIGO stage IIB cervical adenocarcinoma (parametrial involvement, upper 1/3 vaginal involvement). She has elected for pelvic chemoradiation and Tandem/Ovoid HDR Brachytherapy. She now presents for tandem/ ovoid HDR brachytherapy. Description of Procedure The patient was seen today for her 3rd of a planned 5 insertions. The patient was identified in the operating room and a timeout was performed. The patient was placed in stirrups and the packing that was placed to prevent movement of the cervical sleeve was removed. The area was cleansed with iodine. A Manuel catheter was placed. The cervical sleeve was identified and a #1 tandem was inserted into the cervical sleeve. The left ovoid was then placed followed by the right ovoid. These 3 devices were connected and secured. The ovoids were spread and secured. Alatus vaginal packing balloons were placed anteriorly/ posteriorly and filled with 30 mL each to provide adequate bladder and rectal packing. Radiology was then called for imaging. An anterior image was taken showing good orientation of the tandem and ovoid. A lateral image was then obtained showing excellent placement without significant rotation. The insertion procedure was completed and the patient was taken to the recovery room. There was minimal evidence of excoriation of the introitus secondary to her treatment. There was no significant blood loss during the procedure. The patient will be brought to our department where she will undergo a simulation and following completion of treatment planning will receive her second fraction of HDR brachytherapy. I attest to the content of the Intraoperative Record and any orders documented therein. Any exceptions are noted below.
[2018-02-18] MEDS: FENTANYL CITRATE INJ 50 MCG/1 ML 2 ML VIAL IV PRN ×4 (11:37→11:55)
--- NOTE | 2018-02-18 11:46 | DIAGNOSTIC IMAGING REPORT ---
PELVIS 1 OR 2 VIEWS ROUTINE CLINICAL HISTORY: 72 years-old Female presenting with INSERTION OF TANDEM AND OVOIDS. TECHNIQUE: 2 fluoroscopic spot image(s) obtained as part of an intraoperative procedure. COMPARISON: 02/12/2018. FINDINGS/IMPRESSION: Radiation probe positioned in the uterus and cervix. A Manuel catheter noted in the urinary bladder. Please see surgical report for further details. Fluoroscopy dosage (mGy): 2.82. Fluoroscopy time: 8.4 seconds. Number of fluoroscopic spot images: 2. Electronically signed by: Tayo Barrera M.D. 02/18/2018 11:44 AM Dictated Date/Time: 02/18/2018 11:43 AM
--- NOTE | 2018-02-18 12:23 | Anesthesiology Progress Note ---
Anesthesia Post Op Note Date & Time Feb 18, 2018 at 12:22 Vital Signs Pain Intensity: 2 Vital Signs Past 12 Hours Date Time Temp Pulse Resp B/P (MAP) Pulse Ox O2 Delivery O2 Flow Rate FiO2 02/18/18 12:20 36.1 70 22 169/69 97 Nasal Cannula 2 02/18/18 12:10 71 20 177/66 97 Nasal Cannula 2 02/18/18 12:00 79 18 133/81 97 Nasal Cannula 2 02/18/18 11:50 84 14 172/70 100 Oxymask 10 02/18/18 11:40 83 13 184/64 100 Oxymask 10 02/18/18 11:30 36.0 91 14 150/65 99 Oxymask 10 02/18/18 08:42 36.9 102 18 130/63 (85) 94 Room Air Notes Mental Status: alert / awake / arousable, participated in evaluation Pt Amnestic to Procedure: Yes Nausea / Vomiting: adequately controlled Pain: adequately controlled Airway Patency, RR, SpO2: stable & adequate BP & HR: stable & adequate Hydration State: stable & adequate Anesthetic Complications: no major complications apparent
[2018-02-18] MEDS: HYDROmorphone INJ 1 MG/ML SYR IV PRN ×2 (12:55→14:50)
== END | disposition home or self-care (01) ==
LOC: C.ACU 07:58
PROVIDERS: ATTEND Radiology Radiation Oncology
DX: C53.9 Malignant neoplasm of cervix uteri, unspecified (principal); E11.9 Type 2 diabetes mellitus without complications; F90.9 Attention-deficit hyperactivity disorder, unspecified type; I10 Essential (primary) hypertension; Z86.73 Personal history of transient ischemic attack (TIA), and cerebral infarction without residual deficits; Z88.6 Allergy status to analgesic agent; Z88.4 Allergy status to anesthetic agent; Z88.2 Allergy status to sulfonamides; Z91.018 Allergy to other foods; Z79.4 Long term (current) use of insulin

== ENCOUNTER → 2018-02-23 | Day surgery (SDC) | payer OTHER ==
[2018-02-03 16:02] VITALS: BMI 27.0
[~2018-02-23] VITALS: Ht 157.5 cm; Wt 67.8 kg
[~2018-02-23] MED LIST changes: +CONRAY 60% 50 ML VIAL ONE; -DEXAMETHASONE SOD INJ 4 MG/ML VIAL ONE; -DEXTROSE 50% 50 ML SYR ONE; -ESTROGEN TOP; -EpHEDrine SULFATE 50MG/5ML SYR ONE; +FENTANYL CITRATE INJ 50 MCG/1 ML 2 ML VIAL IV PRN; -HYDROmorphone INJ 0.5 MG/0.5 ML SYR IV PRN; -LABETALOL HCL IV 5 MG/ML 20ML IV PRN; +LIDOCAINE 2% 20 MG/ML 5ML SYR IV ONE; -LIDOCAINE HCL 2% 2 ML VIAL (20MG/ML) ONE; -LISI30TA3 PO; +LSNP/30 PO; -MEPERIDINE HCL 25 MG/ML CARP IV PRN
[2018-02-23 06:10] LABS: HEMATOCRIT 35.6 % (37-47); HEMOGLOBIN 11.5 g/dL (12.0-16.0); MEAN CELL VOLUME 90.4 fL (80-100); MEAN CORPUSCULAR HEMOGLOBIN 29.2 pg (25-34); RED CELL DISTRIBUTION WIDTH SD 67.4 fL (36.4-46.3)
[2018-02-23 06:16] VITALS: BP 152/67; PULSE 104; TEMP 36.8; O2SAT 95; Ht 157.5 cm; Wt 67.8 kg
[2018-02-23 06:33] LABS: CALCIUM 9.3 mg/dl (8.5-10.1); CREATININE 0.49 mg/dl (0.60-1.20); POTASSIUM 3.9 mmol/L (3.5-5.1)
[2018-02-23 06:36] LABS: MEAN CORPUSCULAR HGB CONC 32.3 g/dl (32-36); MEAN PLATELET VOLUME 7.7 fL (7.4-10.4); PLATELET COUNT 82 K/uL (130-400)
[2018-02-23 06:38] LABS: BASO % 1.2 %; BASO ABS # 0.02 K/uL (0-0.2); EOS % 2.9 %; EOS ABS # 0.05 K/uL (0-0.5); IG# 0.01 K/uL (0.00-0.02); LYMPH % 16.5 %; LYMPH ABS # 0.28 K/uL (1.2-3.4); MONO % 11.2 %; MONO ABS # 0.19 K/uL (0.11-0.59); NEUT % 67.6 %; NEUT ABS # 1.15 K/uL (1.4-6.5)
--- NOTE | 2018-02-23 07:01 | History & Physical Bridge Note ---
H&P Re-Evaluation Bridge Note: I have examined the patient, reviewed the History & Physical and in the interval since the performance of the History & Physical I have noted the following changes of clinical significance: No changes noted. Today will be the 4th out of 5 insertions for the patient.
--- NOTE | 2018-02-23 08:13 | [facility] Post Operative Brief Note ---
Immediate Operative Summary Operative Date Feb 23, 2018. Pre-Operative Diagnosis Cervical cancer Post-Operative Diagnosis Cervical Cancer Procedure(s) Performed Tandem/Ovoid HDR applicator insertion Surgeon Dr. Kane Atkins MD Milk Powder Grinder Surgeon(s) Payton Steele PA-C Estimated Blood Loss 10 cc Findings Cervical axel sleeve in place. Minimal bleeding noted prior to insertion, not from procedure. Successful insertion of tandem/ovoid HDR applicator and vaginal balloon packing system. Specimens None per surgeon Drains Manuel Urinary Catheter Anesthesia General Complication(s) None Disposition Recovery Room / PACU
--- NOTE | 2018-02-23 08:29 | [facility] Operative Report ---
Operative Report Operative Date Feb 23, 2018. Pre-Operative Diagnosis Cervical cancer Post-Operative Diagnosis Cervical cancer Procedure(s) Performed Placement of Tandem/Ovoid HDR Applicator for Treatment of Cervical Cancer Surgeon Dr. Kane Atkins MD Implementation Technician Surgeon(s) Payton Steele PA-C Estimated Blood Loss 10ml Findings Cervical sleeve in place and sutured to vagina/cervix. Minimal blood in the vaginal vault noted prior to procedure. No palpable clinical disease involving the cervix/vagina. Specimens None per surgeon Drains Manuel Urinary Catheter Anesthesia General Complication(s) None Disposition Recovery Room / PACU Indications 72 yo Female with FIGO stage IIB cervical adenocarcinoma (parametrial involvement, upper 1/3 vaginal involvement). She has elected for pelvic chemoradiation and Tandem/Ovoid HDR Brachytherapy. She now presents for tandem/ ovoid HDR brachytherapy. Insertion 4 of 5. Description of Procedure The patient was seen today for her 4th of a planned 5 insertions. The patient was identified in the operating room and a timeout was performed. The patient was placed in stirrups and the packing that was placed to prevent movement of the cervical sleeve was removed. The area was cleansed with iodine. A Manuel catheter was placed. The cervical sleeve was identified and a tandem was inserted into the cervical sleeve. The left ovoid was then placed followed by the right ovoid. These 3 devices were connected and secured. The ovoids were spread and secured. Alatus vaginal packing balloons were placed anteriorly/ posteriorly and filled with 30 mL each to provide adequate bladder and rectal packing. Radiology was then called for imaging. An anterior image was taken showing good orientation of the tandem and ovoid. A lateral image was then obtained showing excellent placement without significant rotation. The insertion procedure was completed and the patient was taken to the recovery room. There was minimal evidence of excoriation of the introitus secondary to her treatment. There was no significant blood loss during the procedure. The patient will be brought to our department where she will undergo a simulation and following completion of treatment planning will receive her second fraction of HDR brachytherapy. I attest to the content of the Intraoperative Record and any orders documented therein. Any exceptions are noted below.
--- NOTE | 2018-02-23 09:24 | Anesthesiology Progress Note ---
Anesthesia Post Op Note Date & Time Feb 23, 2018 at 09:23 Vital Signs Pain Intensity: 5.0 Vital Signs Past 12 Hours Date Time Temp Pulse Resp B/P (MAP) Pulse Ox O2 Delivery O2 Flow Rate FiO2 02/23/18 09:20 94 16 157/57 97 Nasal Cannula 3 02/23/18 09:10 91 16 169/72 97 Nasal Cannula 3 02/23/18 09:00 36.6 87 18 157/59 93 Nasal Cannula 3 02/23/18 08:50 94 18 122/74 98 5 02/23/18 08:40 94 18 156/65 98 5 02/23/18 08:30 91 18 162/63 98 5 02/23/18 08:23 36.5 99 20 156/64 99 5 02/23/18 06:16 36.8 104 18 152/67 (95) 95 Room Air Notes Mental Status: alert / awake / arousable, participated in evaluation Pt Amnestic to Procedure: Yes Nausea / Vomiting: adequately controlled Pain: adequately controlled Airway Patency, RR, SpO2: stable & adequate BP & HR: stable & adequate Hydration State: stable & adequate Anesthetic Complications: no major complications apparent
[2018-02-23 09:35] VITALS: BP 167/61; PULSE 89; TEMP 36.2; O2SAT 98
[2018-02-23 09:36] VITALS: O2SAT 99
[2018-02-23 10:05] VITALS: BP 177/78; PULSE 82; TEMP 36.5; O2SAT 98
[2018-02-23] MEDS: HYDROmorphone INJ 0.5 MG/0.5 ML SYR IV PRN ×2 (10:16→11:40)
[2018-02-23 10:35] VITALS: BP 176/71; PULSE 85; TEMP 36.5; O2SAT 97
[2018-02-23 11:35] VITALS: BP 161/65; PULSE 90; TEMP 36.5; O2SAT 98
--- NOTE | 2018-02-23 13:19 | DIAGNOSTIC IMAGING REPORT ---
PELVIS 1 OR 2 VIEWS ROUTINE CLINICAL HISTORY: 72 years-old Female presenting with INSERTION OF TADEM AND OVOIDS. TECHNIQUE: 3 fluoroscopic spot image(s) obtained as part of an intraoperative procedure. COMPARISON: 02/18/2018. FINDINGS/IMPRESSION: Radiation probe position at the cervix. Central probe extends into the uterine cavity. Manuel catheter noted in the urinary bladder. Please see surgical report for further details. Fluoroscopy dosage (mGy): 5.05. Fluoroscopy time: 12.8 seconds. Number of fluoroscopic spot images: 3. Electronically signed by: Tayo Barrera M.D. 02/23/2018 1:18 PM Dictated Date/Time: 02/23/2018 1:17 PM
== END | disposition home or self-care (01) ==
LOC: C.ACU 05:22
PROVIDERS: ATTEND Radiology Radiation Oncology
DX: C53.9 Malignant neoplasm of cervix uteri, unspecified (principal); J45.909 Unspecified asthma, uncomplicated; I10 Essential (primary) hypertension; E78.5 Hyperlipidemia, unspecified; E11.9 Type 2 diabetes mellitus without complications; F43.10 Post-traumatic stress disorder, unspecified; Z86.73 Personal history of transient ischemic attack (TIA), and cerebral infarction without residual deficits; Z88.6 Allergy status to analgesic agent; Z88.4 Allergy status to anesthetic agent; Z88.2 Allergy status to sulfonamides; Z79.4 Long term (current) use of insulin

== ENCOUNTER 2019-08-30 17:46 | Inpatient (IN) ==
--- OUTSIDE RECORDS SUMMARY | 2019-08-30 17:50 | External Medical Summary | Continuity of Care Document ---
:1945 Author Name Ramesh Pope, Provider Address Unavailable Unavailable , Care Team Providers Name Role Phone Non[facility] MDaniel, Provider Unavailable [email or web address] Active medical history not documented Allergies and Adverse Reactions Allergy history not documented Medications Medications not documented Procedures Procedures not documented Immunizations Immunizations not documented Plan of Treatment Planned Observations Planned Goals not documented Results No Known Results Results not documented
[2019-08-30 19:41] LABS: Basophils # (auto) 0.01 K/uL (0-0.2); Basophils % (auto) 0.2 %; Hematocrit (blood only) 36.9 % (37-47); Hemoglobin 12.5 g/dL (12.0-16.0); Immature Granulocytes # (auto) 0.01 K/uL (0.00-0.02); Immature Granulocytes % (auto) 0.2 %; Lymphocytes # (auto) 0.38 K/uL (1.2-3.4); Lymphocytes % (auto) 7.6 %; Mean Corpuscular Hemoglobin 30.8 pg (25-34); Mean Corpuscular Hgb Conc 33.9 g/dL (32-36); Mean Corpuscular Volume 90.9 fL (80-100); Platelet Count 125 K/uL (130-400); RDW Coefficient of Variation 18.1 % (11.5-14.5); RDW Standard Deviation 60.1 fL (36.4-46.3); Red Blood Count 4.06 M/uL (4.2-5.4)
--- NOTE | 2019-08-30 19:57 | XRay Report ---
XR chest 1V portable CLINICAL HISTORY: Fall. COMPARISON STUDY: Chest radiograph December 07, 2018. FINDINGS: Lung volumes are normal. Lungs are clear. There is no pneumothorax or pleural effusion. Car diac size is stable. Mediastinal contours are normal. There is no evidence for pulmonary edema. An ol d healed left clavicular fracture is noted as well as postoperative findings within the right shoulde r. A left-sided [id number] is unchanged in position. Note is made of old bilateral rib fractures. IMPRESSION: No acute cardiopulmonary findings. No change in appearance of the chest. Electronically signed by: Pelon Su M.D. 08/30/2019 7:55 PM
--- NOTE | 2019-08-30 19:58 | XRay Report ---
XR wrist RT min 3V routine CLINICAL HISTORY: fall COMPARISON: None FINDINGS: Alignment of the right wrist is anatomic. No acute fracture is identified. There is chondr ocalcinosis within the TFCC. A well-corticated ossicle along the ulnar styloid is normal. There is mi ld to moderate osteoarthritis within multiple articulations. IMPRESSION: No acute fracture or dislocation within the right wrist. Electronically signed by: Pelon Su M.D. 08/30/2019 7:57 PM
--- NOTE | 2019-08-30 20:00 | XRay Report ---
XR hand RT min 3V routine CLINICAL HISTORY: fall COMPARISON: None FINDINGS: Alignment of the right hand is anatomic. There is no acute fracture. There is chondrocalci nosis within the TFCC. IMPRESSION: No acute fracture or dislocation within the right hand. Electronically signed by: Pelon Su M.D. 08/30/2019 7:58 PM
[2019-08-30 20:02] LABS: Albumin Level 4.1 gm/dl (3.4-5.0); BUN Creatinine Ratio 22.1 (10-20); Calcium 9.4 mg/dl (8.5-10.1); Creatinine Clr Calc Pharmacy 64.1 ml/min; Est GFR (African American) 100.3; Est GFR (Non-African American) 86.6; Potassium 3.7 mmol/L (3.5-5.1)
[2019-08-30 20:13] LABS: Albumin Globulin Ratio 1.3 (0.9-2); Bilirubin,Total 0.8 mg/dl (0.2-1); Globulin 3.1 gm/dl (2.5-4.0); Thyroid Stimulating Hormone 2.59 uIu/ml (0.300-4.500); Total Protein 7.2 gm/dl (6.4-8.2)
[2019-08-30 20:23] LABS: Acetaminophen < 2 ug/ml (10-30)
--- NOTE | 2019-08-30 20:42 | CT Scan Report ---
CT OF THE HEAD WITHOUT CONTRAST CLINICAL HISTORY: Altered mental status. Fall. COMPARISON STUDY: Head CT November 22, 2017. TECHNIQUE: Helical axial images of the head were obtained without IV contrast. Automated exposure con trol was utilized for the study. A dose lowering technique was utilized adhering to the principles o f ALARA. FINDINGS: No acute intracranial hemorrhage, midline shift or mass effect is present. The ventricular system is stable. 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 The basilar cisterns are patent. No extra -axial collections are present. There are no findings to suggest acute dural sinus thrombosis or acut e territorial infarct. No significant calvarial abnormalities are present. A densely calcified 2.6 cm focus within the right basal ganglia is unchanged. The appearance of the brain is unchanged. A small forehead contusion is noted. IMPRESSION: 1. No acute intracranial findings. No change in appearance of the brain. Stable 2.6 cm calcified focu s within the right basal ganglia. 2. Small forehead contusion. No calvarial fracture. Electronically signed by: Pelon Su M.D. 08/30/2019 8:40 PM
[2019-08-30 20:46] LABS: Appearance Urine Clear (Clear); Bacteria Urine Automated Negative (Negative); Bilirubin Urine Negative (Negative); Blood Urine Negative (Negative); Color Urine Yellow; Epithelial Cell Urine Auto 20-30 /lpf (0-5); Glucose Urine UA Negative (Negative); Leukocyte Esterase Urine Negative (Negative); Nitrite Urine Negative (Negative); Protein Urine 2+ (Negative); Specific Gravity Urine 1.023 (1.000-1.030); Urobilinogen Urine Negative (Negative); pH Urine 5.5 (4.5-7.5)
[2019-08-30 20:51] LABS: Ketones Urine 3+ (Negative)
--- NOTE | 2019-08-30 20:51 | CT Scan Report ---
MAXILLOFACIAL CT WITHOUT CONTRAST CLINICAL HISTORY: fall COMPARISON STUDY: Maxillofacial CT March 13, 2014. TECHNIQUE: A maxillofacial CT was performed without IV contrast. Coronal and sagittal reformats were viewed. Automated exposure control was utilized for the study. A dose lowering technique was utiliz ed adhering to the principles of ALARA. FINDINGS: No acute facial fracture is identified. There is a small forehead contusion. The globes are intact. There is no retrobulbar hematoma. There is no skull base fracture. Note is made of an acute minimally distracted fracture through the right anterior arch of C1. There is a nondisplaced fracture of the left anterior arch of C1. These fractures are depicted on the CT of the cervical spine. IMPRESSION: 1. No acute facial fracture. 2. Acute minimally distracted fracture of the right anterior arch of C1 and an acute nondisplaced fra cture of the left anterior arch of C1. Electronically signed by: Pelon Su M.D. 08/30/2019 8:50 PM
--- NOTE | 2019-08-30 21:00 | CT Scan Report ---
CT OF THE CERVICAL SPINE WITHOUT CONTRAST CLINICAL HISTORY: fall COMPARISON STUDY: Cervical spine CT March 26, 2014. TECHNIQUE: Helical axial images of the cervical spine were obtained without IV contrast. Sagittal a nd coronal reconstructions were viewed. Automated exposure control was utilized for the study. A do se lowering technique was utilized adhering to the principles of ALARA. FINDINGS: Note is made of an acute minimally distracted fracture through the right anterior arch of C 1. There is an acute nondisplaced fracture of the left anterior arch of C1. Craniocervical junction i s otherwise intact. No CT fracture is noted. There is mild loss of height of the superior endplates o f C7, T1 and T2 which is age indeterminate but new since CT of March 26, 2014. There is moderate mult ilevel degenerative changes within the cervical spine. IMPRESSION: 1. Acute minimally distracted fracture of the right anterior arch of C1 and an acute nondisplaced fra cture of the left anterior arch of C1. 2. Mild age indeterminate compression fractures of the superior endplates of C7, T1 and T2. Electronically signed by: Pelon Su M.D. 08/30/2019 8:58 PM
[2019-08-30 21:12] LABS: Amphetamines+Metham, Urine Neg (Neg); Barbiturates, Urine Neg (Neg); Benzodiazepine, Urine Neg (Neg); Cocaine, Urine Neg (Neg); MDMA (Ecstacy), Urine Neg (Neg); Methadone, Urine Neg (Neg); Opiate, Urine Neg (Neg); Phencyclidine, Urine Neg (Neg)
[2019-08-30] MEDS ORDERED: LORazepam 1 MG/2 ML VIAL IV STA (21:30)
[2019-08-30 22:43] LABS: Creatine Kinase 773 U/L (26-192)
--- NOTE | 2019-08-30 22:56 | History & Physical Report ---
Date of Service August 30, 2019 Assessment & Plan (1) Cervical spine fracture: Likely secondary to unwitnessed fall secondary to manic symptoms the last month hx ADD/bipolar disorder/OCD as per records Unwitnessed fall rule out uncontrolled seizure hx seizure disorder on Keppra hx traumatic SAH Pleuritic chest pain with S OB rule out PE/rib fractures hypertension, slightly elevated Hyponatremia secondary to clinical dehydration Mild rhabdomyolysis secondary to fall DM2 insulin requiring, currently hyperglycemic ? Medication compliance given manic symptoms well-controlled as of recent outpatient hemoglobin A1c of 5.1 last March 2019 hypothyroidism, euthyroid as of today's TSH COPD, remote tobacco abuse, lung status stable hx cervical cancer status post chemoradiation hx of recurrent GI bleed, currently stable Medical telemetry given chest pain complaints CT chest PE study Continue cervical immobilization rendered at the ER for cervical fracture Orthopedic spine consult RE cervical fracture (ER provider already in touch with Dr. Patiño.) IVF, follow CPK, hold home diuretic for now Continue Keppra for seizure disorder, EEG Psychiatry consult RE christina Hold home neuropsychotropic rx (save for Keppra) until patient seen by Psychiatry PT OT eval Basal insulin, ISS BG goal 140- 180, update hemoglobin A1c DVT prophylaxis. SCDs RE recurrent GI bleed Full code Patient's family requesting updates from providers. Mr. Antonio Rowland, contact #[phone]. Ms. Bessie Aguilar, contact #[phone]. History of Present Illness Chief Complaint: Manic as per family Primary Care Provider: Abhinav Sebastian MD History obtained from patient, family, and records. Limited history from patient secondary to disorientation. 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 As per daughter, patient sold her childhood home last month. Sale triggered a lot of bad memories as per patient's daughter. Patient perceived to be manic by family. Thoughts are fast, patient jumping from subject to subject. Patient disinhibited and not sleeping as much as per daughter. No recent changes in psych med regimen as per daughter. Today patient complained of achy neck pain, pleuritic chest pain symptoms. Forehead swelling abrasion and epistaxis noted. Patient not sure if she fell down. Patient does not think she passed out or had a breakthrough seizure. MEDICAL HISTORY: As above. SURGICAL HISTORY: Appendectomy, shoulder surgery, some catheter placement, dental surgery, BTL, femoral surgery, shoulder surgery, gynecologic procedures FAMILY HISTORY: heart disease. PERSONAL AND SOCIAL HISTORY: Remote tobacco abuse. Occasional EtOH intake denies abuse. Lives with her , family business. Allergies Allergy/AdvReac Type Severity Reaction Status Date / Time aspirin Allergy Intermediate INTESTINAL Verified 08/30/19 19:22 BLEEDING AND HIVES prednisone Allergy Intermediate HIVES; Verified 08/30/19 19:22 TREMORS lidocaine Allergy Unknown edema face Verified 08/30/19 19:22 and lips simethicone Allergy Unknown Hives/swell Verified 08/30/19 19:22 ing Bactrim AdvReac Unknown Nausea/vomi Verified 02/23/18 06:15 ting citalopram AdvReac Unknown tremors Verified 08/30/19 19:22 clonazepam AdvReac Unknown Agitated Verified 08/30/19 19:22 magnesium citrate AdvReac Unknown HIVES AND Verified 08/30/19 19:22 SWELLING metoclopramide AdvReac Unknown Leg pains Verified 08/30/19 19:22 onion AdvReac Unknown nausea/vomi Verified 08/30/19 19:22 ting rosiglitazone AdvReac Unknown Anemia/swelling/seizure/memory Verified 08/30/19 19:22 loss simvastatin AdvReac Unknown Leg pains Verified 08/30/19 19:22 sulfamethoxazole AdvReac Unknown Nausea/vomi Verified 08/30/19 19:22 ting trimethoprim AdvReac Unknown Nausea/vomi Verified 08/30/19 19:22 ting valproic acid AdvReac Unknown weakness/at Verified 08/30/19 19:22 axia/confus ion Home Medications Home Medications Medication Instructions Recorded Confirmed Type Lantus Solostar U-100 Insulin 50 unit SUBCUT HS 12/07/18 08/30/19 History albuterol sulfate [Ventolin HFA] 2 puff INHALATION QID PRN 12/07/18 08/30/19 History amiloride 5 mg PO DAILY 12/07/18 08/30/19 History duloxetine 30 mg PO DAILY 12/07/18 08/30/19 History ferrous sulfate 324 mg PO BID 12/07/18 08/30/19 History levetiracetam [Keppra] 1,000 mg PO BID 12/07/18 08/30/19 History levothyroxine [Synthroid] 25 mcg PO DAILY 12/07/18 08/30/19 History linagliptin 5 mg PO QAM 12/07/18 08/30/19 History loperamide 2 mg PO QID PRN 12/07/18 08/30/19 History losartan [Cozaar] 50 mg PO QAM 12/07/18 08/30/19 History metformin 1,500 mg PO QAM 12/07/18 08/30/19 History mirtazapine [Remeron] 30 mg PO HS 12/07/18 08/30/19 History multivitamin 1 tab PO QAM 12/07/18 08/30/19 History pantoprazole [Protonix] 40 mg PO QAM 12/07/18 08/30/19 History ranitidine HCl [Zantac] 150 mg PO QAM 12/07/18 08/30/19 History rosuvastatin [Crestor] 10 mg PO QAM 12/07/18 08/30/19 History thiamine HCl (vitamin B1) [Vitamin 100 mg PO BID 12/07/18 08/30/19 History B-1] iron,carbonyl-vitamin C [Vitron-C] 1 tab PO DAILY 08/30/19 08/30/19 History magnesium oxide 400 mg PO BID 08/30/19 08/30/19 History risperidone [Risperdal] 1 mg PO DAILY 08/30/19 08/30/19 History sulfasalazine 1 g PO DAILY 08/30/19 08/30/19 History Past Med/Surg History Medical History DM (diabetes mellitus) (Chronic) Anemia (Chronic) Seizure (Resolved) Hypoglycemia (Resolved) Multiple rib fractures (Resolved) Intracranial hemorrhage Rib fractures (Chronic) Christina (04/07/14) UTI (urinary tract infection) (Resolved 04/07/14) Bipolar 1 disorder (Chronic 04/07/14) Hyperthyroidism (Chronic) Dyslipidemia (Chronic) Seizure disorder (Chronic) Cavernoma (Chronic) Altered mental status (Resolved) Cervical adenocarcinoma (11/04/17) "Postmenopausal vaginal bleeding Ultrasound revealing a large cervical mass Status post biopsy 11/04/2017 Invasive adenocarcinoma of the cervix Status post completion of definitive radiation and chemotherapy. Status post completion of radiation therapy March 19, 2018. She received 5200 cGy external beam treatment. She received 2350 cGy with HDR tandem and ovoid therapy." Encephalopathy (06/09/14) Mood disorder (Chronic) Family History Other Family history non-contributory Social History Preferred Language: [place] Communication Ability: Effective Cable Armorer Required: No Beliefs That Will Affect Care: None Current Living Situation: Alone Other Information That Helps Us Care for You: No Feels Safe at Home: Yes Safety Concerns: Feels Safe At This Time Smoking Status: Former smoker Tobacco Type: cigarettes ; Do You Dip or Chew Tobacco: No ; Second Hand Exposure: Yes ; Tobacco Cessation Education Requested by Patient: No Hx Alcohol Use: No Hx Substance Use: No Review of Systems Review of Systems: Could not be reliably obtained Physical Exam Physical Exam: GENERAL: uncomfortable, crying, slightly hard of hearing, no respiratory distress SKIN: Normal color, warm HEENT: Contusion over the forehead, pink palpebral conjunctivae, no ptosis, dried blood per nostril, dry buccal mucosa NECK : Cervical collar in place CHEST : Decreased breath sounds, anterior chest wall tenderness HEART : RRR, no obvious murmurs ABDOMEN: Soft, nontender EXTREMITIES : No LE swelling/tenderness, no other conspicuous deformities noted NEUROLOGIC : Disoriented, no facial asymmetry, equal MMTs bilaterally, gait and stance not assessed Results & Data Vital Signs (Past 12 Hours) Vital Signs Temp Pulse Pulse Resp BP BP Pulse Ox 08/30/19 22:00 86 20 146/69 H 96 08/30/19 20:35 87 20 158/67 H 96 08/30/19 18:23 37.3 C 97 H 20 137/73 99 Laboratory Results Laboratory Results WBC 5.00 K/uL (4.8-10.8) 08/30/19 19:23 RBC 4.06 M/uL (4.2-5.4) L 08/30/19: Hgb 12.5 g/dL (12.0-16.0) 08/30/19: Hct 36.9 % (37-47) L 08/30/19: MCV 90.9 fL (80-100) 08/30/19: MCH 30.8 pg (25-34) 08/30/19: MCHC 33.9 g/dL (32-36) 08/30/19 RDW Std Deviation 60.1 fL (36.4-46.3) H 08/30/19 RDW Coeff of Lili 18.1 % (11.5-14.5) H 08/30/19 Plt Count 125 K/uL (130-400) L 08/30/19 MPV 8.0 fL (7.4-10.4) 08/30/19: Immature Gran % (Auto) 0.2 % 08/30/19: Neut % (Auto) 84.0 % 08/30/19: Lymph % (Auto) 7.6 % 08/30/19: Mccreary % (Auto) 8.0 % 08/30/19: Eos % (Auto) 0.0 % 08/30/19: Baso % (Auto) 0.2 % 08/30/19: Immature Gran # (Auto) 0.01 K/uL (0.00-0.02) 08/30/19: Neut # (Auto) 4.20 K/uL (1.4-6.5) 08/30/19: Lymph # (Auto) 0.38 K/uL (1.2-3.4) L 08/30/19: Mccreary # (Auto) 0.40 K/uL (0.11-0.59) 08/30/19: Eos # (Auto) 0.00 K/uL (0-0.5) 08/30/19 Baso # (Auto) 0.01 K/uL (0-0.2) 08/30/19: Sodium 131 mmol/L (136-145) L 08/30/19:23 Potassium 3.7 mmol/L (3.5-5.1) 08/30/19 19:23 Chloride 96 mmol/L (98-107) L 08/30/19 19:23 Carbon Dioxide 22 mmol/L (21-32) 08/30/19 19:23 Anion Gap 13.0 (3-11) H 08/30/19 19:23 BUN 15 mg/dl (7-18) 08/30/19 19:23 Creatinine 0.70 mg/dl (0.6-1.2) 08/30/19 19:23 Est Cr Clr Drug Dosing 64.1 ml/min 08/30/19 19:23 Est GFR ( Amer) 100.3 08/30/19 19:23 Est GFR (Non-Af Amer) 86.6 08/30/19 19:23 BUN/Creatinine Ratio 22.1 (10-20) H 08/30/19 19:23 Glucose 227 mg/dl (70-99) H 08/30/19 19:23 POC Glucose 221 (70-99) H 08/30/19 19:26 Calcium 9.4 mg/dl (8.5-10.1) 08/30/19 19:23 Total Bilirubin 0.8 mg/dl (0.2-1) 08/30/19 19:23 AST 46 U/L (15-37) H 08/30/19 19:23 ALT 39 U/L (12-78) 08/30/19 19:23 Alkaline Phosphatase 118 U/L (45-117) H 08/30/19 19:23 Total Creatine Kinase 773 U/L (26-192) H 08/30/19 19:23 Total Protein 7.2 gm/dl (6.4-8.2) 08/30/19 19:23 Albumin 4.1 gm/dl (3.4-5.0) 08/30/19 19:23 Globulin 3.1 gm/dl (2.5-4.0) 08/30/19 19:23 Albumin/Globulin Ratio 1.3 (0.9-2) 08/30/19 19:23 TSH 2.590 uIu/ml (0.300-4.500) 08/30/19 19:23 TSH Cancelled 08/30/19 19:23 Urine Color Yellow 08/30/19 20:20 Urine Appearance Clear (Clear) 08/30/19 20:20 Urine pH 5.5 (4.5-7.5) 08/30/19 20:20 Ur Specific [place] 1.023 (1.000-1.030) 08/30/19 20:20 Urine Protein 2+ (Negative) H 08/30/19 20:20 Urine Glucose (UA) Negative (Negative) 08/30/19 20:20 Urine Ketones 3+ (Negative) H 08/30/19 20:20 Urine Blood Negative (Negative) 08/30/19 20:20 Urine Nitrite Negative (Negative) 08/30/19 20:20 Urine Bilirubin Negative (Negative) 08/30/19 20:20 Urine Urobilinogen Negative (Negative) 08/30/19 20:20 Ur Leukocyte Esterase Negative (Negative) 08/30/19 20:20 Urine WBC (Auto) 1-5 /hpf (0-5) 08/30/19 20:20 Urine RBC (Auto) 10-30 /hpf (0-4) H 08/30/19 20:20 U Hyaline Cast (Auto) 5-10 /lpf (0-5) H 08/30/19 20:20 U Epithel Cells (Auto) 20-30 /lpf (0-5) H 08/30/19 20:20 Urine Bacteria (Auto) Negative (Negative) 08/30/19 20:20 Granular Casts 1-5 /lpf (0) H 08/30/19 20:20 Salicylates 2.0 mg/dl (2.8-20) L 08/30/19 19:23 Urine Opiates Screen Neg (Neg) 08/30/19 20:20 Ur Methadone, Qual Neg (Neg) 08/30/19 20:20 Acetaminophen < 2 ug/ml (10-30) L 08/30/19 19:23 Urine Barbiturates Neg (Neg) 08/30/19 20:20 Ur Phencyclidine (PCP) Neg (Neg) 08/30/19 20:20 U Amphetamin/Meth Scrn Neg (Neg) 08/30/19 20:20 MDMA (Ecstasy) Screen Neg (Neg) 08/30/19 20:20 U Benzodiazepines Scrn Neg (Neg) 08/30/19 20:20 Ur Cocaine Metabolite Neg (Neg) 08/30/19 20:20 U Marijuana (THC) Screen Pos (Neg) H 08/30/19 20:20 Ethyl Alcohol mg/dL < 3.0 mg/dl (0-3) 08/30/19 19:23 Diagnostic Findings Chest x-ray : No acute cardiopulmonary findings EKG as per my interpretation : Rate 80, NSR, normal axis, inferior infarct CT Head: 1. No acute intracranial findings. No change in appearance of the brain. Stable 2.6 cm calcified focus within the right basal ganglia. 2. Small forehead contusion. No calvarial fracture. CT face: No acute facial fracture CT cervical spine: 1. Acute minimally distracted fracture of the right anterior arch of C1 and an acute nondisplaced fracture of the left anterior arch of C1. 2. Mild age indeterminate compression fractures of the superior endplates of C7, T1 and T2. Code Status & VTE Plan VTE Prophylaxis Plan VTE Prophylaxis will be ordered: Yes
[2019-08-30 23:14] LABS: Troponin I < 0.015 ng/ml (0-0.045)
[2019-08-31] MEDS ORDERED: OPTIRAY 320 125ml IV PRN (00:10)
[2019-08-31] MEDS ORDERED: PROMETHAZINE HCL 12.5 MG in SODIUM CHLORIDE 0.9% 50 ML IV PRN (00:43)
[2019-08-31] MEDS ORDERED: GLUCOSE 40% GEL 15 GM TUBE PO PRN (00:43)
[2019-08-31] MEDS ORDERED: GLUCAGON FOR INJ 1 MG VIAL SQ PRN (00:43)
[2019-08-31] MEDS ORDERED: CARBOHYDRATES FOR HYPOGLYCEMIA PO PRN (00:43)
[2019-08-31] MEDS ORDERED: OLANZapine 10 MG/2.1 ML SDV IM PRN (00:43)
[2019-08-31] MEDS ORDERED: TRAMADOL HCL 50 MG TABLET PO PRN (00:43)
[2019-08-31] MEDS ORDERED: GLUCOSE 10 TABS/TUBE PO PRN (00:43)
[2019-08-31] MEDS ORDERED: DEXTROSE 50% 50 ML SYRINGE IV PRN (00:43)
[2019-08-31] MEDS: ACETAMINOPHEN 325 MG TAB PO PRN (01:22)
[2019-08-31] MEDS: INSULIN ASPART 100 UNITS/ML 3 ML PEN SC SCH ×5 (01:27→21:04)
[2019-08-31] MEDS: INSULIN GLARGINE SOLOSTAR 100 UNITS/ML 3 ML PEN SQ SCH ×2 (01:28→09:00)
--- NOTE | 2019-08-31 01:30 | Emergency Department Note ---
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 Per the patient's daughter, the patient has been experiencing christina for the past several weeks. She states that she believes that it is related to the patient selling her mothers house recently. She mentions that the patient has worsening episodes of christina yesterday and today. She notes that she called her psychiatrist today and they prescribed her Risperdal. She notes that the patient took one dose of it prior to arrival and is calmer. She mentions that she is concerned that the patient has recently fall en, but has not witnessed one. The patient states that she has had a loss of appetite and sleep recently. She reports that she cannot concentrate. She denies any suicidal ideation or homicidal ideation. She denies any guilty thoughts about selling her mothers house. Per the daughter, the patient has a history of cervical cancer, diabetes, and acid reflux. She mentions that the patient is usually tired and lethargic, but has not been for the past several weeks. Home Medications Home Medications Medication Instructions Recorded Confirmed Type Lantus Solostar U-100 Insulin 50 unit SUBCUT HS 12/07/18 08/30/19 History albuterol sulfate [Ventolin HFA] 2 puff INHALATION QID PRN 12/07/18 08/30/19 History amiloride 5 mg PO DAILY 12/07/18 08/30/19 History duloxetine 30 mg PO DAILY 12/07/18 08/30/19 History ferrous sulfate 324 mg PO BID 12/07/18 08/30/19 History levetiracetam [Keppra] 1,000 mg PO BID 12/07/18 08/30/19 History levothyroxine [Synthroid] 25 mcg PO DAILY 12/07/18 08/30/19 History linagliptin 5 mg PO QAM 12/07/18 08/30/19 History loperamide 2 mg PO QID PRN 12/07/18 08/30/19 History losartan [Cozaar] 50 mg PO QAM 12/07/18 08/30/19 History metformin 1,500 mg PO QAM 12/07/18 08/30/19 History mirtazapine [Remeron] 30 mg PO HS 12/07/18 08/30/19 History multivitamin 1 tab PO QAM 12/07/18 08/30/19 History pantoprazole [Protonix] 40 mg PO QAM 12/07/18 08/30/19 History ranitidine HCl [Zantac] 150 mg PO QAM 12/07/18 08/30/19 History rosuvastatin [Crestor] 10 mg PO QAM 12/07/18 08/30/19 History thiamine HCl (vitamin B1) [Vitamin 100 mg PO BID 12/07/18 08/30/19 History B-1] iron,carbonyl-vitamin C [Vitron-C] 1 tab PO DAILY 08/30/19 08/30/19 History magnesium oxide 400 mg PO BID 08/30/19 08/30/19 History risperidone [Risperdal] 1 mg PO DAILY 08/30/19 08/30/19 History sulfasalazine 1 g PO DAILY 08/30/19 08/30/19 History Allergies Allergy/AdvReac Type Severity Reaction Status Date / Time aspirin Allergy Intermediate INTESTINAL Verified 08/30/19 19:22 BLEEDING AND HIVES prednisone Allergy Intermediate HIVES; Verified 08/30/19 19:22 TREMORS lidocaine Allergy Unknown edema face Verified 08/30/19 19:22 and lips simethicone Allergy Unknown Hives/swell Verified 08/30/19 19:22 ing Bactrim AdvReac Unknown Nausea/vomi Verified 02/23/18 06:15 ting citalopram AdvReac Unknown tremors Verified 08/30/19 19:22 clonazepam AdvReac Unknown Agitated Verified 08/30/19 19:22 magnesium citrate AdvReac Unknown HIVES AND Verified 08/30/19 19:22 SWELLING metoclopramide AdvReac Unknown Leg pains Verified 08/30/19 19:22 onion AdvReac Unknown nausea/vomi Verified 08/30/19 19:22 ting rosiglitazone AdvReac Unknown Anemia/swelling/seizure/memory Verified 08/30/19 19:22 loss simvastatin AdvReac Unknown Leg pains Verified 08/30/19 19:22 sulfamethoxazole AdvReac Unknown Nausea/vomi Verified 08/30/19 19:22 ting trimethoprim AdvReac Unknown Nausea/vomi Verified 08/30/19 19:22 ting valproic acid AdvReac Unknown weakness/at Verified 08/30/19 19:22 axia/confus ion Past Med/Surg History Medical History DM (diabetes mellitus) (Chronic) Anemia (Chronic) Seizure (Resolved) Hypoglycemia (Resolved) Multiple rib fractures (Resolved) Intracranial hemorrhage Rib fractures (Chronic) Christina (04/07/14) UTI (urinary tract infection) (Resolved 04/07/14) Bipolar 1 disorder (Chronic 04/07/14) Hyperthyroidism (Chronic) Dyslipidemia (Chronic) Seizure disorder (Chronic) Cavernoma (Chronic) Altered mental status (Resolved) Cervical adenocarcinoma (11/04/17) "Postmenopausal vaginal bleeding Ultrasound revealing a large cervical mass Status post biopsy 11/04/2017 Invasive adenocarcinoma of the cervix Status post completion of definitive radiation and chemotherapy. Status post completion of radiation therapy March 19, 2018. She received 5200 cGy external beam treatment. She received 2350 cGy with HDR tandem and ovoid therapy." Encephalopathy (06/09/14) Mood disorder (Chronic) Family History Other Family history non-contributory Social History Preferred Language: Martiniquais Communication Ability: Effective Car Dispatcher Required: No Beliefs That Will Affect Care: None Current Living Situation: Alone Other Information That Helps Us Care for You: No Feels Safe at Home: Yes Safety Concerns: Feels Safe At This Time Smoking Status: Former smoker Tobacco Type: cigarettes ; Do You Dip or Chew Tobacco: No ; Second Hand Exposure: Yes ; Tobacco Cessation Education Requested by Patient: No Hx Alcohol Use: No Hx Substance Use: No Review of Systems See HPI for pertinent positives & negatives. and A total of 10 systems reviewed and were otherwise negative Physical Exam Vital Signs Vital Signs - 24 hr 08/30/19 18:23 08/30/19 20:35 08/30/19 22:00 Temperature 37.3 C Temperature Source Oral Sepsis Recent Fever Within 48 Hours No Sepsis New/Unexplained Change in Mental Status No Sepsis Action Taken by Nursing No Action Required Pulse Rate 97 H Pulse Rate [Finger] 87 86 Pulse Rhythm Regular Pulse Strength Normal Respiratory Rate 20 20 20 Respiratory Effort / Characteristics Non-Labored Spontaneous Respiratory Depth Normal Respiratory Pattern Regular Blood Pressure 137/73 Blood Pressure [Right Arm] 158/67 H 146/69 H Blood Pressure Mean 94 Blood Pressure Mean [Right Arm] 97 94 Blood Pressure Position Sitting Blood Pressure Position [Right Arm] Sitting Lying Pulse Oximetry 99 96 96 Oxygen Delivery Method Room Air GENERAL: She is oriented to person, place, and time. She appears well-developed and well-nourished. She does not appear distressed. HENT: Exam performed. Head: Abrasion over forehead. Normocephalic. Right Ear: External ear normal. No mastoid tenderness. Left Ear: External ear normal. No mastoid tenderness. Mouth/Throat: The oropharynx is clear and moist. No trismus in the jaw. No dental abscesses or uvula swelling. No oropharyngeal exudate or tonsillar abscesses. EYES: Conjunctivae and EOM are normal. Pupils are equal, round, and reactive to light. Right eye exhibits no discharge. Left eye exhibits no discharge. No scleral icterus. NECK: Pain on palpation of C spine. CV: Normal rate, regular rhythm, normal heart sounds and intact distal pulses. There is no peripheral edema. Palpable radial pulses bue. PULM/CHEST: Scant expiratory wheezes bilaterally. Effort normal and breath so unds normal. No respiratory distress. No stridor. She has no rales. Chest Wall: She exhibits no tenderness. ABD: The abdomen is soft. Bowel sounds are normal. She has no distension. No mass is present. There is no tenderness. There is no rebound, no guarding, no Berry's sign and no tenderness at McBurney's point. Rovsig negative MUSC/SKEL: Pain on palpation of right wrist and hand. Normal range of motion. There is no peripheral edema or deformity. LYMPH: No cervical adenopathy. NEURO: She is alert and oriented to person, place, and time. She has normal strength. No cranial nerve deficit or sensory deficit. Coordination and gait normal. GCS eye subscore is 4. GCS verbal subscore is 5. GCS motor subscore is 6. cerbellar tests wnl. SKIN: Skin is warm and dry. She is not diaphoretic. PSYCH: Bizarre affect. Course 1850: The patient was evaluated in room A8, and a complete history and physical examination were performed. 2129: Vital signs stable. Labs within normal limits. His imaging shows a Adonis fracture of C1. I discussed the patient's case with Dr. Patiño- [facility] Ortho-Spine Surgery, he states that there is no need for acute surgical intervention at this time. He states that he will evaluate her tomorrow and have the patient admitted to the medicine service. A muscogee J collar was placed at this time. I reviewed the patient's case with Dr. Arreola [facility] Hospitalist. He will evaluate the patient for further management. Administered Medications Acetaminophen (Tylenol) 650 mg PO Q4H PRN PRN Reason: Pain or Fever Stop: 09/30/19 00:42 Last Admin: 08/31/19 01:22 Dose: 650 mg Documented by: [id number] Ioversol (Optiray 320 125ml) 117 ml IV ONCE PRN PRN Reason: Interaction Checking Stop: 09/04/19 00:09 Last Admin: 08/31/19 00:10 Dose: 117 ml Documented by: [id number] Discontinued Medications Lorazepam (Ativan) 1 mg in 2 mls @ 2 mls/min IV NOW STA Stop: 08/30/19 21:31 Last Admin: 08/30/19 22:24 Dose: 1 mls/min Documented by: [id number] Medical Decision Making Medical Records Attestation: I reviewed the patient's medical records. Home Medications Current Medication List: was personally reviewed by me Laboratory Data Attestation: I reviewed the patient's lab results. Result diagrams: 08/30/19 19:23 08/30/19 19:23 Lab Results 08/30/19 08/30/19 08/30/19 Range/Units 19:23 19:23 19:23 WBC 5.00 (4.8-10.8) K/uL RBC 4.06 L (4.2-5.4) M/uL Hgb 12.5 (12.0-16.0) g/dL Hct 36.9 L (37-47) % MCV 90.9 (80-100) fL MCH 30.8 (25-34) pg MCHC 33.9 (32-36) g/dL RDW Std Deviation 60.1 H (36.4-46.3) fL RDW Coeff of Lili 18.1 H (11.5-14.5) % Plt Count 125 L (130-400) K/uL MPV 8.0 (7.4-10.4) fL Immature Gran % (Auto) 0.2 % Neut % (Auto) 84.0 % Lymph % (Auto) 7.6 % Hamb[place] % (Auto) 8.0 % Eos % (Auto) 0.0 % Baso % (Auto) 0.2 % Immature Gran # (Auto) 0.01 (0.00-0.02) K/uL Neut # (Auto) 4.20 (1.4-6.5) K/uL Lymph # (Auto) 0.38 L (1.2-3.4) K/uL Hamblen # (Auto) 0.40 (0.11-0.59) K/uL Eos # (Auto) 0.00 (0-0.5) K/uL Baso # (Auto) 0.01 (0-0.2) K/uL Sodium 131 L (136-145) mmol/L Potassium 3.7 (3.5-5.1) mmol/L Chloride 96 L (98-107) mmol/L Carbon Dioxide 22 (21-32) mmol/L Anion Gap 13.0 H (3-11) BUN 15 (7-18) mg/dl Creatinine 0.70 (0.6-1.2) mg/dl Est Cr Clr Drug Dosing 64.1 ml/min Est GFR ( Amer) 100.3 Est GFR (Non-Af Amer) 86.6 BUN/Creatinine Ratio 22.1 H (10-20) Glucose 227 H (70-99) mg/dl POC Glucose (70-99) Calcium 9.4 (8.5-10.1) mg/dl Total Bilirubin 0.8 (0.2-1) mg/dl AST 46 H (15-37) U/L ALT 39 (12-78) U/L Alkaline Phosphatase 118 H (45-117) U/L Total Creatine Kinase (26-192) U/L Troponin I (0-0.045) ng/ml Total Protein 7.2 (6.4-8.2) gm/dl Albumin 4.1 (3.4-5.0) gm/dl Globulin 3.1 (2.5-4.0) gm/dl Albumin/Globulin Ratio 1.3 (0.9-2) TSH 2.590 (0.300-4.500) uIu/ml Urine Color Urine Appearance (Clear) Urine pH (4.5-7.5) Ur Specific [place] (1.000-1.030) Urine Protein (Negative) Urine Glucose (UA) (Negative) Urine Ketones (Negative) Urine Blood (Negative) Urine Nitrite (Negative) Urine Bilirubin (Negative) Urine Urobilinogen (Negative) Ur Leukocyte Esterase (Negative) Urine WBC (Auto) (0-5) /hpf Urine RBC (Auto) (0-4) /hpf U Hyaline Cast (Auto) (0-5) /lpf U Epithel Cells (Auto) (0-5) /lpf Urine Bacteria (Auto) (Negative) Granular Casts (0) /lpf Salicylates 2.0 L (2.8-20) mg/dl Urine Opiates Screen (Neg) Ur Methadone, Qual (Neg) Acetaminophen < 2 L (10-30) ug/ml Urine Barbiturates (Neg) Ur Phencyclidine (PCP) (Neg) U Amphetamin/Meth Scrn (Neg) MDMA (Ecstasy) Screen (Neg) U Benzodiazepines Scrn (Neg) Ur Cocaine Metabolite (Neg) U Marijuana (THC) Screen (Neg) Ethyl Alcohol mg/dL (0-3) mg/dl 08/30/19 08/30/19 08/30/19 Range/Units 19:23 19:23 19:26 WBC (4.8-10.8) K/uL RBC (4.2-5.4) M/uL Hgb (12.0-16.0) g/dL Hct (37-47) % MCV (80-100) fL MCH (25-34) pg MCHC (32-36) g/dL RDW Std Deviation (36.4-46.3) fL RDW Coeff of Lili (11.5-14.5) % Plt Count (130-400) K/uL MPV (7.4-10.4) fL Immature Gran % (Auto) % Neut % (Auto) % Lymph % (Auto) % Hamb[place] % (Auto) % Eos % (Auto) % Baso % (Auto) % Immature Gran # (Auto) (0.00-0.02) K/uL Neut # (Auto) (1.4-6.5) K/uL Lymph # (Auto) (1.2-3.4) K/uL Hamb[place] # (Auto) (0.11-0.59) K/uL Eos # (Auto) (0-0.5) K/uL Baso # (Auto) (0-0.2) K/uL Sodium (136-145) mmol/L Potassium (3.5-5.1) mmol/L Chloride (98-107) mmol/L Carbon Dioxide (21-32) mmol/L Anion Gap (3-11) BUN (7-18) mg/dl Creatinine (0.6-1.2) mg/dl Est Cr Clr Drug Dosing ml/min Est GFR ( Amer) Est GFR (Non-Af Amer) BUN/Creatinine Ratio (10-20) Glucose (70-99) mg/dl POC Glucose 221 H (70-99) Calcium (8.5-10.1) mg/dl Total Bilirubin (0.2-1) mg/dl AST (15-37) U/L ALT (12-78) U/L Alkaline Phosphatase (45-117) U/L Total Creatine Kinase 773 H (26-192) U/L Troponin I < 0.015 (0-0.045) ng/ml Total Protein (6.4-8.2) gm/dl Albumin (3.4-5.0) gm/dl Globulin (2.5-4.0) gm/dl Albumin/Globulin Ratio (0.9-2) TSH Cancelled (0.300-4.500) uIu/ml Urine Color Urine Appearance (Clear) Urine pH (4.5-7.5) Ur Specific [place] (1.000-1.030) Urine Protein (Negative) Urine Glucose (UA) (Negative) Urine Ketones (Negative) Urine Blood (Negative) Urine Nitrite (Negative) Urine Bilirubin (Negative) Urine Urobilinogen (Negative) Ur Leukocyte Esterase (Negative) Urine WBC (Auto) (0-5) /hpf Urine RBC (Auto) (0-4) /hpf U Hyaline Cast (Auto) (0-5) /lpf U Epithel Cells (Auto) (0-5) /lpf Urine Bacteria (Auto) (Negative) Granular Casts (0) /lpf Salicylates (2.8-20) mg/dl Urine Opiates Screen (Neg) Ur Methadone, Qual (Neg) Acetaminophen (10-30) ug/ml Urine Barbiturates (Neg) Ur Phencyclidine (PCP) (Neg) U Amphetamin/Meth Scrn (Neg) MDMA (Ecstasy) Screen (Neg) U Benzodiazepines Scrn (Neg) Ur Cocaine Metabolite (Neg) U Marijuana (THC) Screen (Neg) Ethyl Alcohol mg/dL < 3.0 (0-3) mg/dl 08/30/19 08/30/19 Range/Units 20:20 20:20 WBC (4.8-10.8) K/uL RBC (4.2-5.4) M/uL Hgb (12.0-16.0) g/dL Hct (37-47) % MCV (80-100) fL MCH (25-34) pg MCHC (32-36) g/dL RDW Std Deviation (36.4-46.3) fL RDW Coeff of Lili (11.5-14.5) % Plt Count (130-400) K/uL MPV (7.4-10.4) fL Immature Gran % (Auto) % Neut % (Auto) % Lymph % (Auto) % [place] % (Auto) % Eos % (Auto) % Baso % (Auto) % Immature Gran # (Auto) (0.00-0.02) K/uL Neut # (Auto) (1.4-6.5) K/uL Lymph # (Auto) (1.2-3.4) K/uL [place] # (Auto) (0.11-0.59) K/uL Eos # (Auto) (0-0.5) K/uL Baso # (Auto) (0-0.2) K/uL Sodium (136-145) mmol/L Potassium (3.5-5.1) mmol/L Chloride (98-107) mmol/L Carbon Dioxide (21-32) mmol/L Anion Gap (3-11) BUN (7-18) mg/dl Creatinine (0.6-1.2) mg/dl Est Cr Clr Drug Dosing ml/min Est GFR ( Amer) Est GFR (Non-Af Amer) BUN/Creatinine Ratio (10-20) Glucose (70-99) mg/dl POC Glucose (70-99) Calcium (8.5-10.1) mg/dl Total Bilirubin (0.2-1) mg/dl AST (15-37) U/L ALT (12-78) U/L Alkaline Phosphatase (45-117) U/L Total Creatine Kinase (26-192) U/L Troponin I (0-0.045) ng/ml Total Protein (6.4-8.2) gm/dl Albumin (3.4-5.0) gm/dl Globulin (2.5-4.0) gm/dl Albumin/Globulin Ratio (0.9-2) TSH (0.300-4.500) uIu/ml Urine Color Yellow Urine Appearance Clear (Clear) Urine pH 5.5 (4.5-7.5) Ur Specific [place] 1.023 (1.000-1.030) Urine Protein 2+ H (Negative) Urine Glucose (UA) Negative (Negative) Urine Ketones 3+ H (Negative) Urine Blood Negative (Negative) Urine Nitrite Negative (Negative) Urine Bilirubin Negative (Negative) Urine Urobilinogen Negative (Negative) Ur Leukocyte Esterase Negative (Negative) Urine WBC (Auto) 1-5 (0-5) /hpf Urine RBC (Auto) 10-30 H (0-4) /hpf U Hyaline Cast (Auto) 5-10 H (0-5) /lpf U Epithel Cells (Auto) 20-30 H (0-5) /lpf Urine Bacteria (Auto) Negative (Negative) Granular Casts 1-5 H (0) /lpf Salicylates (2.8-20) mg/dl Urine Opiates Screen Neg (Neg) Ur Methadone, Qual Neg (Neg) Acetaminophen (10-30) ug/ml Urine Barbiturates Neg (Neg) Ur Phencyclidine (PCP) Neg (Neg) U Amphetamin/Meth Scrn Neg (Neg) MDMA (Ecstasy) Screen Neg (Neg) U Benzodiazepines Scrn Neg (Neg) Ur Cocaine Metabolite Neg (Neg) U Marijuana (THC) Screen Pos H (Neg) Ethyl Alcohol mg/dL (0-3) mg/dl Imaging Data Radiologist's Impression: Radiology results as stated below per my review and the radiologist's interpretation: CT OF THE HEAD WITHOUT CONTRAST CLINICAL HISTORY: Altered mental status. Fall. COMPARISON STUDY: Head CT November 22, 2017. TECHNIQUE: Helical axial images of the head were obtained without IV contrast. Automated exposure control was utilized for the study. A dose lowering technique was utilized adhering to the principles of ALARA. FINDINGS: No acute intracranial hemorrhage, midline shift or mass effect is present. The ventricular system is stable. 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 The basilar cisterns are patent. No extra-axial collections are present. There are no findings to suggest acute dural sinus thrombosis or acute territorial infarct. No significant calvarial abnormalities are present. A densely calcified 2.6 cm focus within the right basal ganglia is unchanged. The appearance of the brain is unchanged. A small forehead contusion is noted. IMPRESSION: 1. No acute intracranial findings. No change in appearance of the brain. Stable 2.6 cm calcified focus within the right basal ganglia. 2. Small forehead contusion. No calvarial fracture. Electronically signed by: Pelon Su M.D. 08/30/2019 8:[address] WITHOUT CONTRAST CLINICAL HISTORY: fall COMPARISON STUDY: Maxillofacial CT March 13, 2014. TECHNIQUE: A maxillofacial CT was performed without IV contrast. Coronal and sagittal reformats were viewed. Automated exposure control was utilized for the study. A dose lowering technique was utilized adhering to the principles of ALARA. FINDINGS: No acute facial fracture is identified. There is a small forehead contusion. The globes are intact. There is no retrobulbar hematoma. There is no skull base fracture. Note is made of an acute minimally distracted fracture through the right anterior arch of C1. There is a nondisplaced fracture of the left anterior arch of C1. These fractures are depicted on the CT of the cervical spine. IMPRESSION: 1. No acute facial fracture. 2. Acute minimally distracted fracture of the right anterior arch of C1 and an acute nondisplaced fracture of the left anterior arch of C1. Electronically signed by: Pelon Su M.D. 08/30/2019 8:[address] OF THE CERVICAL SPINE WITHOUT CONTRAST CLINICAL HISTORY: fall COMPARISON STUDY: Cervical spine CT March 26, 2014. TECHNIQUE: Helical axial images of the cervical spine were obtained without IV contrast. Sagittal and coronal reconstructions were viewed. Automated exposure control was utilized for the study. A dose lowering technique was utilized adhering to the principles of ALARA. FINDINGS: Note is made of an acute minimally distracted fracture through the right anterior arch of C1. There is an acute nondisplaced fracture of the left anterior arch of C1. Craniocervical junction is otherwise intact. No CT fracture is noted. There is mild loss of height of the superior endplates of C7, T1 and T2 which is age indeterminate but new since CT of March 26, 2014. There is moderate multilevel degenerative changes within the cervical spine. IMPRESSION: 1. Acute minimally distracted fracture of the right anterior arch of C1 and an acute nondisplaced fracture of the left anterior arch of C1. 2. Mild age indeterminate compression fractures of the superior endplates of C7, T1 and T2. Electronically signed by: Pelon Su M.D. 08/30/2019 8:58 PM XR chest 1V portable CLINICAL HISTORY: Fall. COMPARISON STUDY: Chest radiograph December 07, 2018. FINDINGS: Lung volumes are normal. Lungs are clear. There is no pneumothorax or pleural effusion. Cardiac size is stable. Mediastinal contours are normal. There is no evidence for pulmonary edema. An old healed left clavicular fracture is noted as well as postoperative findings within the right shoulder. A left-sided [id number]-a-[id number] is unchanged in position. Note is made of old bilateral rib fractures. IMPRESSION: No acute cardiopulmonary findings. No change in appearance of the chest. Electronically signed by: Pelon Su M.D. 08/30/2019 7:55 PM XR hand RT min 3V routine CLINICAL HISTORY: fall COMPARISON: None FINDINGS: Alignment of the right hand is anatomic. There is no acute fracture. There is chondrocalcinosis within the TFCC. IMPRESSION: No acute fracture or dislocation within the right hand. Electronically signed by: Pelon Su M.D. 08/30/2019 7:58 PM XR wrist RT min 3V routine CLINICAL HISTORY: fall COMPARISON: None FINDINGS: Alignment of the right wrist is anatomic. No acute fracture is identified. There is chondrocalcinosis within the TFCC. A well-corticated ossicle along the ulnar styloid is normal. 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 IMPRESSION: No acute fracture or dislocation within the right wrist. Electronically signed by: Pelon Su M.D. 08/30/2019 7:57 PM Blood Pressure Blood Pressure Findings: Elevated blood pressure Blood Pressure Disposition: further management by hospitalist [facility] Narrative Vital signs stable. Labs within normal limits. His imaging shows a Adonis fracture of C1. I discussed the patient's case with Dr. Patiño- [facility] Ortho- Spine Surgery, he states that there is no need for acute surgical intervention at this time. He states that he will evaluate her tomorrow and have the patient admitted to the medicine service. A muscogee J collar was placed at this time. I reviewed the patient's case with Dr. Elba Goodwin Hospitalist. He will evaluate the patient for further management. Impression & Plan Adonis fracture, Moderate bipolar I disorder with christina as current episode Critical Care Time Critical Care Time: Yes Total Critical Care Time: 40 I have personally spent 40 minutes of critical care time in the direct management of this patient. This includes bedside care, interpretation of diagnostic studies, and testing, discussion with consultants, patient, and family members, and other required patient management activities. This 40 minutes is in excess of all separately billable procedures. Discharge Plan Visit Data *Final* Discharge Date/Time: 08/30/19 23:58 Chief Complaint: Mental Health Evaluation Stated Complaint: MENTAL HEALTH EVAL, NOSE BLEED, FOREHEAD SWELLING ED Provider: Luiz Agrawal Discharge Problem: Adonis fracture, Moderate bipolar I disorder with christina as current episode Patient Disposition: Admitted As Inpatient Discharge Instructions Interventions: ED Discharge Assessment Last Done: 08/30/19 23:58 Discharge Problem: Adonis fracture Qualifiers: Encounter type: initial encounter Fracture type: closed Qualified Code(s): S12.01XA - Stable burst fracture of first cervical vertebra, initial encounter for closed fracture The scribe's documentation has been prepared under my direction and personally reviewed by me in its entirety. I confirm that the note above accurately reflects all work, treatment, procedures, and medical decision making performed by me.
[2019-08-31] MEDS ORDERED: NSS + 20MEQ KCL 20 MEQ/1,000 ML BAG IV ONE ×3 (05:45→07:00)
[2019-08-31] MEDS: LEVOTHYROXINE SODIUM 25 MCG TABLET PO SCH (06:01)
[2019-08-31] MEDS: OXYCODONE HCL IR 5 MG TAB (IMMEDIATE RELEASE) PO PRN ×5 (06:01→23:38)
[2019-08-31] MEDS: MICONAZOLE NITRATE POWDER 43 GM EXT PRN (06:08)
[2019-08-31 06:13] LABS: Basophils # (auto) 0.01 K/uL (0-0.2); Basophils % (auto) 0.3 %; Eosinophils # (auto) 0.04 K/uL (0-0.5); Hematocrit (blood only) 37.3 % (37-47); Hemoglobin 12.4 g/dL (12.0-16.0); Lymphocytes # (auto) 0.57 K/uL (1.2-3.4); Mean Corpuscular Hemoglobin 30.4 pg (25-34); Mean Corpuscular Hgb Conc 33.2 g/dL (32-36); Mean Corpuscular Volume 91.4 fL (80-100); Mean Platelet Volume 8.1 fL (7.4-10.4); Monocytes # (auto) 0.35 K/uL (0.11-0.59); Monocytes % (auto) 9.2 %; Neutrophils # (auto) 2.84 K/uL (1.4-6.5); Neutrophils % (auto) 74.5 %; Platelet Count 136 K/uL (130-400); RDW Coefficient of Variation 18.4 % (11.5-14.5); RDW Standard Deviation 61.5 fL (36.4-46.3); Red Blood Count 4.08 M/uL (4.2-5.4); White Blood Count 3.81 K/uL (4.8-10.8)
[2019-08-31 06:57] LABS: BUN Creatinine Ratio 21.2 (10-20); Calcium 9.5 mg/dl (8.5-10.1); Creatinine Clr Calc Pharmacy 95.3 ml/min; Est GFR (African American) 113.6; Potassium 3.5 mmol/L (3.5-5.1)
[2019-08-31 07:22] LABS: Estimated Average Glucose 80 mg/dl; Hemoglobin A1C 4.4 % (4.5-5.6)
[2019-08-31] MEDS: MULTIVITAMIN TAB PO SCH (07:40)
[2019-08-31] MEDS: THIAMINE HCL 100 MG TAB PO SCH ×2 (07:40→20:06)
[2019-08-31] MEDS: FERROUS SULFATE 325 MG TAB PO SCH ×2 (07:40→20:05)
--- NOTE | 2019-08-31 07:47 | CT Scan Report ---
CT angio chest PE protocol CLINICAL HISTORY: 73 years-old Female presenting with atypical chest pain, shortness of breath. TECHNIQUE: Multidetector CT angiography of the chest was performed after administration of intravenou s contrast. 3-D volumetric and/or maximum intensity projection (MIP) images were subsequently reconst ructed for review. IV contrast: 118 mL of Optiray 320. One or more dose lowering techniques were used consistent with the principles of ALARA (as low as reasonably achievable), including automatic expos ure control, mA or kV adjustment to individual patient size, and/or use of iterative reconstruction. COMPARISON: 03/13/2014. CT DOSE (mGy.cm): The estimated cumulative dose is 610.71 mGy.cm. FINDINGS: Chief Clerk topogram: Screw fixation of the right humeral head. Pulmonary vasculature: The study is adequate for assessment of the pulmonary vascular tree. No filling defect within the pul monary arteries to suggest embolus. And pulmonary artery catheter normal in size. No flattening of th e interventricular septum. No intracardiac filling defect. No reflux of contrast into the hepatic vei ns. Remaining chest: Soft tissues: Normal thyroid. Left subclavian Mediport terminates in the superior cavoatrial junction . No axillary, supraclavicular, mediastinal, or hilar lymphadenopathy. Small outpouching arising from the anteromedial aspect of the proximal most descending thoracic aorta (series 4 image 202). This me asures less than 1 cm in length along the long axis of the aorta and approximately 5 mm beyond the ex pected luminal contour. This is associated with calcified atherosclerotic plaque. The appearance some what resembles a ductus diverticulum though there may be superimposed penetrating ulcer present. No s urrounding infiltration. Normal heart size. No pericardial or pleural effusion. Upper abdomen normal. Lungs and airways: No pneumothorax. Debris noted in the lower trachea and left mainstem bronchus. Pul monary arteries are not significantly enlarged relative to adjacent bronchi. No interlobular septal t hickening. Minimal paramediastinal bandlike opacities in the upper lobes likely atelectasis or scarri ng. Minimal dependent changes likely atelectasis. Musculoskeletal: Mild compression deformities of T10 and T11 new since 2013. Minimal compression defo rmities in the upper thoracic spine at T3 and T4. Nonunited chronic fracture of the sternum. Bilatera l old rib fractures. Two screw fixation of the right humeral head. IMPRESSION: 1. No evidence of pulmonary embolus. 2. Debris in the trachea and left mainstem bronchus concerning for aspiration or mucus. 3. 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 4. Multiple posttraumatic deformities. The compression deformities at T10 and T11 are new since 2013 . Correlate for point tenderness. Electronically signed by: Tayo Barrera M.D. 08/31/2019 7:46 AM
[2019-08-31] MEDS ORDERED: POTASSIUM CHLORIDE 20 MEQ TABCR PO STA (07:52)
[2019-08-31] MEDS ORDERED: LOSARTAN POTASSIUM 50 MG TAB PO SCH (09:00)
[2019-08-31] MEDS ORDERED: ROSUVASTATIN CALCIUM 10 MG TAB PO SCH (09:00)
[2019-08-31] MEDS ORDERED: sulfaSALAzine 500 MG TABEC PO SCH (09:00)
[2019-08-31] MEDS ORDERED: PANTOprazole 40 MG TAB PO SCH (09:00)
[2019-08-31] MEDS: levETIRAcetam 500 MG TAB PO SCH ×2 (09:01→20:06)
[2019-08-31] MEDS: SODIUM CHLORIDE 0.9% 1000ML 1,000 ML IV SCH ×2 (09:08→21:06)
[2019-08-31] MEDS ORDERED: RISPERIDONE ODT 1MG PO STA (11:32)
--- NOTE | 2019-08-31 12:04 | Orthopedic Consultation ---
Date of Consultation August 31, 2019 Assessment & Plan (1) Cervical spine fracture: At this time I have discussed with the patient and her family that she must wear her [place] collar at all times. This type of fracture should heal well on its own. She will require follow-up x-ray and CAT scan in approximately 4 to 6 weeks. Present on Admission?: Yes History of Present Illness Reason for Consultation: Neck pain status post fall Attending Physician: Toribio Ashraf MD History of Present Illness This is a 71-year-old female that presents the emergency room after a fall. She had underwent a full work-up and was diagnosed with a fracture of the C1 vertebral ring. Her daughter and are at the bedside during our discussion this afternoon. She does have her [place] J collar in place. She is definitely a manic phase. She is rapid and speech. She does exhibit reasonable strength and sensory to be intact. Allergies Allergy/AdvReac Type Severity Reaction Status Date / Time aspirin Allergy Intermediate INTESTINAL Verified 08/30/19 19:22 BLEEDING AND HIVES prednisone Allergy Intermediate HIVES; Verified 08/30/19 19:22 TREMORS lidocaine Allergy Unknown edema face Verified 08/30/19 19:22 and lips simethicone Allergy Unknown Hives/swell Verified 08/30/19 19:22 ing Bactrim AdvReac Unknown Nausea/vomi Verified 02/23/18 06:15 ting citalopram AdvReac Unknown tremors Verified 08/30/19 19:22 clonazepam AdvReac Unknown Agitated Verified 08/30/19 19:22 magnesium citrate AdvReac Unknown HIVES AND Verified 08/30/19 19:22 SWELLING metoclopramide AdvReac Unknown Leg pains Verified 08/30/19 19:22 onion AdvReac Unknown nausea/vomi Verified 08/30/19 19:22 ting rosiglitazone AdvReac Unknown Anemia/swelling/seizure/memory Verified 08/30/19 19:22 loss simvastatin AdvReac Unknown Leg pains Verified 08/30/19 19:22 sulfamethoxazole AdvReac Unknown Nausea/vomi Verified 08/30/19 19:22 ting trimethoprim AdvReac Unknown Nausea/vomi Verified 08/30/19 19:22 ting valproic acid AdvReac Unknown weakness/at Verified 08/30/19 19:22 axia/confus ion Home Medications Home Medications Medication Instructions Recorded Confirmed Type Ginny Bridgesar U-100 Insulin 50 unit SUBCUT HS 12/07/18 08/30/19 History amiloride 5 mg PO DAILY 12/07/18 08/30/19 History duloxetine 30 mg PO DAILY 12/07/18 08/30/19 History ferrous sulfate 324 mg PO BID 12/07/18 08/30/19 History levetiracetam [Keppra] 1,000 mg PO BID 12/07/18 08/30/19 History levothyroxine [Synthroid] 25 mcg PO DAILY 12/07/18 08/30/19 History linagliptin 5 mg PO QAM 12/07/18 08/30/19 History loperamide 2 mg PO QID PRN 12/07/18 08/30/19 History metformin 750 mg PO BID 12/07/18 08/31/19 History mirtazapine [Remeron] 30 mg PO HS 12/07/18 08/30/19 History multivitamin 1 tab PO QAM 12/07/18 08/30/19 History ranitidine HCl [Zantac] 150 mg PO BID 12/07/18 08/31/19 History thiamine HCl (vitamin B1) [Vitamin 100 mg PO BID 12/07/18 08/30/19 History B-1] iron,carbonyl-vitamin C [Vitron-C] 1 tab PO BID 08/30/19 08/31/19 History risperidone [Risperdal] 1 mg PO BID 08/30/19 08/31/19 History albuterol sulfate 2 puff INHALATION QID 08/31/19 08/31/19 History Patient History Medical History DM (diabetes mellitus) (Chronic) Anemia (Chronic) Seizure (Resolved) Hypoglycemia (Resolved) Multiple rib fractures (Resolved) Intracranial hemorrhage Rib fractures (Chronic) Ana (04/07/14) UTI (urinary tract infection) (Resolved 04/07/14) Bipolar 1 disorder (Chronic 04/07/14) Hyperthyroidism (Chronic) Dyslipidemia (Chronic) Seizure disorder (Chronic) Cavernoma (Chronic) Altered mental status (Resolved) Cervical adenocarcinoma (11/04/17) "Postmenopausal vaginal bleeding Ultrasound revealing a large cervical mass Status post biopsy 11/04/2017 Invasive adenocarcinoma of the cervix Status post completion of definitive radiation and chemotherapy. Status post completion of radiation therapy March 19, 2018. She received 5200 cGy external beam treatment. She received 2350 cGy with HDR tandem and ovoid therapy." Encephalopathy (06/09/14) Mood disorder (Chronic) Family History Other Family history non-contributory Social History Preferred Language: Welsh Communication Ability: Effective Dog Catcher Required: No Beliefs That Will Affect Care: None Current Living Situation: Alone Other Information That Helps Us Care for You: No Feels Safe at Home: Yes Safety Concerns: Feels Safe At This Time Smoking Status: Former smoker Tobacco Type: cigarettes ; Do You Dip or Chew Tobacco: No ; Second Hand Exposure: Yes ; Tobacco Cessation Education Requested by Patient: No Hx Alcohol Use: No Hx Substance Use: No Physical Exam Physical Exam: On exam she does have regional strength testing sensory is intact. Collar in place. She has significant ecchymosis across her face consistent with her fall. Results & Data Vital Signs (Past 12 Hours) Vital Signs Temp Pulse Pulse Resp BP Pulse Ox Pulse Ox 08/31/19 07:39 36.4 C L 84 20 138/72 95 08/31/19 04:30 36.6 C 88 20 156/83 H 99 08/31/19 01:12 78 08/31/19 00:48 36.3 C L 77 18 127/70 100 08/31/19 00:46 100
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
[2019-08-31] MEDS: GABAPENTIN 100 MG CAP PO SCH ×2 (12:35→20:05)
--- NOTE | 2019-08-31 12:51 | Hospitalist Progress Note ---
Date of Service August 31, 2019 Assessment & Plan (1) Cervical spine fracture: -acute Cervical spine fracture of C1 likely secondary to unwitnessed fall -CT scan: Acute minimally distracted fracture of the right anterior arch of C1 and an acute nondisplaced fracture of the left anterior arch of C1. Mild age indeterminate compression fractures of the superior endplates of C7, T1 and T2. -patient was evaluated by orthopedic surgeon and no acute surgical intervention recommended because the evaluation is that this type of fracture should heal on its own. Instead, patient should wear the [place] J collar at all times. Patient will need follow-up x-ray and CAT scan in approximately 4 to 6 weeks. 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 -Hemoglobin A1c of 4.4 -monitor on reduce long acting insulin as 15 units daily for now to prevent hypoglycemia -sliding scale insulin as needed History of: ADD (attention deficit disorder), bipolar disorder, OCD (Obsessive- Compulsive Disorder) Psychiatry recommendations 08/31/19: "-Stat dose of Risperdal M tab 1 mg was ordered by this provider at time of evaluation -Patient was recently prescribed risperidone 1 mg twice daily her outpatient psychiatric records - Records also indicate that it was recommended that duloxetine dosage to be decreased to 30 mg daily in the context of recent manic presentation - Can continue mirtazapine 30 mg nightly - Recommend continuing the above medication regimen at this time" mild Hyponatremia -serum sodium 131 on admission -monitor serum sodium while on normal saline IV fluids History of Hypothyroidism -continue home dose Levothyroxine History of COPD, remote tobacco use -respiratory status stable History of cervical cancer status post chemoradiation in the past Anemia -history of GI bleed in November 2018 -no acute blood loss noted on this admission -continue iron supplements DVT prophylaxis. SCDs Full code Mr. Antonio Rowland, contact #[phone]. Ms. Bessie Aguilar, contact #[phone]. Subjective Patient reports of pain particularly at the thumbs and index fingers of the hands. She did not allow physician to examine her hands because she reports that they are sensitive. Patient reports that acetaminophen does not control the pain. patient is easily irritable. Patient's neck is in a collar. she is breathing on room air. no chest pain. no abdomen pain. patient allowed for her care to be discussed with Antonio [phone] and daughter Bessie [phone] at the bedside Physical Exam Constitutional: + frail appearing Eyes: PERRL, conjunctivae normal, anicteric sclerae EOM intact bilaterally ENMT: facial brusing Neck: Patient's neck is in a collar Respiratory: normal respiratory effort, lungs clear to auscultation Cardiovascular: RRR, no murmur, no edema Gastrointestinal (Abdomen): normal bowel sounds, soft, nontender, no hepatosplenomegaly Musculoskeletal: Patient reports of pain particularly at the thumbs and index fingers of the hands. She did not allow physician to examine her hands because she reports that they are sensitive Neurologic: Patient reports of pain particularly at the thumbs and index fingers of the hands. She did not allow physician to examine her hands because she reports that they are sensitive able to life the legs while laying on the bed with ease Psychiatric: Orientation: alert and cooperative patient is easily irritable Results & Data Vital Signs (Past 12 Hours) Vital Signs Temp Pulse Pulse Resp BP BP Pulse Ox 08/31/19 12:16 37.1 C 82 94 H 128/78 94 08/31/19 07:39 36.4 C L 84 20 138/72 95 08/31/19 04:30 36.6 C 88 20 156/83 H 99 08/31/19 01:12 78 08/31/19 00:48 36.3 C L 77 18 127/70 100
[2019-08-31] MEDS: HYDROmorphone INJ 0.5 MG/0.5 ML SYR IV PRN (13:55)
[2019-08-31] MEDS: HEPARIN 100 UNIT/ML 5ML FLUSH FLUSH PRN (13:56)
[2019-08-31] MEDS: SENNA 8.6 MG TAB PO SCH (14:17)
[2019-08-31] MEDS ORDERED: RANITIDINE HCL SYRUP 150 MG/10 ML UDC PO STA (14:17)
[2019-08-31] MEDS: DULOXETINE HCL 30 MG CAP PO SCH (15:46)
[2019-08-31] MEDS ORDERED: DiphenhydrAMINE HCL 50 MG/ML VIAL IV STA (17:14)
[2019-08-31] MEDS ORDERED: LORazepam 0.25 MG/0.5 ML VIAL IV STA (17:14)
[2019-08-31] MEDS: RISPERIDONE ODT 1MG PO SCH (20:07)
[2019-08-31] MEDS: MIRTAZAPINE TAB 15 MG TAB PO SCH (20:07)
[2019-09-01] MEDS ORDERED: DiphenhydrAMINE HCL 50 MG/ML VIAL IV STA (00:31)
[2019-09-01] MEDS: risperiDONE ODT 0.5 MG SOLTAB PO PRN ×3 (03:34→19:23)
[2019-09-01] MEDS: LEVOTHYROXINE SODIUM 25 MCG TABLET PO SCH (06:04)
[2019-09-01 06:18] LABS: Basophils # (auto) 0.02 K/uL (0-0.2); Basophils % (auto) 0.7 %; Eosinophils # (auto) 0.08 K/uL (0-0.5); Eosinophils % (auto) 2.8 %; Hematocrit (blood only) 33.6 % (37-47); Hemoglobin 11.1 g/dL (12.0-16.0); Immature Granulocytes # (auto) 0.01 K/uL (0.00-0.02); Immature Granulocytes % (auto) 0.3 %; Lymphocytes % (auto) 20.8 %; Mean Corpuscular Hemoglobin 30.9 pg (25-34); Mean Corpuscular Volume 93.6 fL (80-100); Mean Platelet Volume 7.8 fL (7.4-10.4); Monocytes # (auto) 0.25 K/uL (0.11-0.59); Monocytes % (auto) 8.7 %; Neutrophils # (auto) 1.93 K/uL (1.4-6.5); Neutrophils % (auto) 66.7 %; Platelet Count 105 K/uL (130-400); RDW Coefficient of Variation 18.3 % (11.5-14.5); RDW Standard Deviation 62.4 fL (36.4-46.3); Red Blood Count 3.59 M/uL (4.2-5.4); White Blood Count 2.89 K/uL (4.8-10.8)
[2019-09-01 07:12] LABS: Albumin Globulin Ratio 1.1 (0.9-2); Albumin Level 3.5 gm/dl (3.4-5.0); BUN Creatinine Ratio 22.6 (10-20); Bilirubin,Total 0.4 mg/dl (0.2-1); Calcium 8.6 mg/dl (8.5-10.1); Creatinine Clr Calc Pharmacy 106.4 ml/min; Est GFR (African American) 117.8; Est GFR (Non-African American) 101.6; Globulin 3.1 gm/dl (2.5-4.0); Potassium 4.1 mmol/L (3.5-5.1); Total Protein 6.6 gm/dl (6.4-8.2)
[2019-09-01] MEDS: OXYCODONE HCL IR 5 MG TAB (IMMEDIATE RELEASE) PO PRN (07:27)
[2019-09-01] MEDS: RISPERIDONE ODT 1MG PO SCH ×2 (07:28→20:34)
[2019-09-01] MEDS: levETIRAcetam 500 MG TAB PO SCH ×2 (07:29→20:31)
[2019-09-01] MEDS: SENNA 8.6 MG TAB PO SCH (07:29)
[2019-09-01] MEDS: THIAMINE HCL 100 MG TAB PO SCH ×2 (07:29→20:34)
[2019-09-01] MEDS: GABAPENTIN 100 MG CAP PO SCH ×3 (07:30→20:32)
[2019-09-01] MEDS: FERROUS SULFATE 325 MG TAB PO SCH ×2 (07:30→20:32)
[2019-09-01] MEDS: PANTOprazole 40 MG TAB PO SCH (07:32)
[2019-09-01] MEDS: MULTIVITAMIN TAB PO SCH (07:32)
[2019-09-01] MEDS: DULOXETINE HCL 30 MG CAP PO SCH (08:59)
[2019-09-01] MEDS ORDERED: INSULIN GLARGINE SOLOSTAR 100 UNITS/ML 3 ML PEN SQ SCH (09:00)
[2019-09-01] MEDS: INSULIN ASPART 100 UNITS/ML 3 ML PEN SC SCH ×4 (09:01→20:36)
[2019-09-01] MEDS: SODIUM CHLORIDE 0.9% 1000ML 1,000 ML IV SCH ×2 (09:42→20:39)
--- NOTE | 2019-09-01 10:44 | Hospitalist Progress Note ---
Date of Service September 01, 2019 Assessment & Plan (1) Cervical spine fracture: -acute Cervical spine fracture of C1 likely secondary to unwitnessed fall -CT scan: Acute minimally distracted fracture of the right anterior arch of C1 and an acute nondisplaced fracture of the left anterior arch of C1. Mild age indeterminate compression fractures of the superior endplates of C7, T1 and T2. -patient was evaluated by orthopedic surgeon and no acute surgical intervention recommended because the evaluation is that this type of fracture should heal on its own. Instead, patient should wear the [place] J collar at all times. Patient will need follow-up x-ray and CAT scan in approximately 4 to 6 weeks. -PT/OT evaluations -pain control, bowel regimen CTA chest on 08/30/19 does not show pulmonary embolism and does not show rib fractures Hypertension -blood pressure elevated today -unclear whether this is situational hypertension from agitation or from pain -continue to monitor Traumatic rhabdomyolysis -creatinine kinase 773 to 849 admission day -on IV fluids -creatinine kinase is 600 on 09/01/19 -continue IV fluids history of seizure disorder -there does not appear to be evidence to assume that patient has had seizure recently -continue to monitor in the hospital - no seizure noted in the hospital at this time -continue Keppra -EEG was ordered Type 2 diabetes mellitus with shelter use of insulin -Hemoglobin A1c of 4.4 -monitor on reduce long acting insulin as 20 units daily for now to prevent hypoglycemia -sliding scale insulin as needed Bipolar 1 disorder with possible christina History of: ADD (attention deficit disorder), bipolar disorder, OCD (Obsessive- Compulsive Disorder) Psychiatry recommendations 08/31/19: "-Stat dose of Risperdal M tab 1 mg was ordered by this provider at time of evaluation -Patient was recently prescribed risperidone 1 mg twice daily her outpatient psychiatric records - Records also indicate that it was recommended that duloxetine dosage to be decreased to 30 mg daily in the context of recent manic presentation - Can continue mirtazapine 30 mg nightly - Recommend continuing the above medication regimen at this time" -will continue the risperidone, duloxetine, mirtazipine mild Hyponatremia -serum sodium 131 on admission -monitor serum sodium while on normal saline IV fluids -currently serum sodium is 136 History of Hypothyroidism -continue home dose Levothyroxine History of COPD, remote tobacco use -respiratory status stable History of cervical cancer status post chemoradiation in the past Anemia -history of GI bleed in November 2018 -no acute blood loss noted on this admission -continue iron supplements DVT prophylaxis. SCDs Full code Mr. Antonio Rowland, contact #[phone]. Ms. Bessie Aguilar, contact #[phone]. Subjective I, medical doctor walked into the room for the rounds and introduced myself. Patient with her eyes closed initially told me to go away and said "I don't like you". I asked the patient what I had done incorrectly, she repeated that she does not like me. I noted that patient's medical treatment included being on IV fluids and that I would like to be able to listen to her lung sounds to make sure that she does not have too much fluid. She agreed to physical exam and said "Just don't lift up my shirt!" I re-assured patient that the physical exam is with her hospital gown on. She allowed me to to do anterior auscultation of lungs, heart, and abdomen. She was otherwise not interested or not focused to discuss the current hospital course. I asked whether her family members have been visiting her and she said that they have been coming by. Physical Exam Constitutional: + frail appearing Eyes: PERRL, conjunctivae normal, anicteric sclerae EOM intact bilaterally ENMT: external ear and nose normal, oropharynx normal Neck: neck is in a collar Respiratory: normal respiratory effort, lungs clear to auscultation Cardiovascular: RRR, no murmur, no edema Gastrointestinal (Abdomen): normal bowel sounds, soft, nontender, no hepatosplenomegaly Neurologic: awake Psychiatric: Orientation: alert agitated Results & Data Vital Signs (Past 12 Hours) Vital Signs Temp Pulse Resp BP Pulse Ox 09/01/19 07:07 36.3 C L 92 H 20 173/85 H 96 09/01/19 03:55 36.7 C 103 H 20 152/84 H 95 08/31/19 23:40 36.7 C 85 20 148/81 H 94
[2019-09-01 19:39] LABS: BUN Creatinine Ratio 20.6 (10-20); Blood Urea Nitrogen 14 mg/dl (7-18); Calcium 8.7 mg/dl (8.5-10.1); Carbon Dioxide 29 mmol/L (21-32); Chloride 105 mmol/L (98-107); Creatinine Clr Calc Pharmacy 65.4 ml/min; Est GFR (African American) 100.3; Est GFR (Non-African American) 86.6; Glucose 140 mg/dl (70-99); Potassium 3.9 mmol/L (3.5-5.1); Sodium 138 mmol/L (136-145)
[2019-09-01 19:44] LABS: Creatine Kinase 426 U/L (26-192); Troponin I < 0.015 ng/ml (0-0.045)
[2019-09-01] MEDS: MIRTAZAPINE TAB 15 MG TAB PO SCH (20:32)
[2019-09-02] MEDS: LEVOTHYROXINE SODIUM 25 MCG TABLET PO SCH (07:14)
[2019-09-02] MEDS: MULTIVITAMIN TAB PO SCH (08:38)
[2019-09-02] MEDS: GABAPENTIN 100 MG CAP PO SCH ×3 (08:38→21:17)
[2019-09-02] MEDS: DULOXETINE HCL 30 MG CAP PO SCH (08:38)
[2019-09-02] MEDS: levETIRAcetam 500 MG TAB PO SCH ×2 (08:38→21:17)
[2019-09-02] MEDS: PANTOprazole 40 MG TAB PO SCH (08:38)
[2019-09-02] MEDS: FERROUS SULFATE 325 MG TAB PO SCH ×2 (08:38→21:17)
[2019-09-02] MEDS: RISPERIDONE ODT 1MG PO SCH ×3 (08:38→21:18)
[2019-09-02] MEDS: THIAMINE HCL 100 MG TAB PO SCH ×2 (08:38→21:18)
[2019-09-02] MEDS: INSULIN ASPART 100 UNITS/ML 3 ML PEN SC SCH ×4 (08:38→21:20)
[2019-09-02] MEDS: SENNA 8.6 MG TAB PO SCH (08:38)
[2019-09-02] MEDS: SODIUM CHLORIDE 0.9% 1000ML 1,000 ML IV SCH ×2 (08:42→22:48)
[2019-09-02] MEDS ORDERED: INSULIN GLARGINE SOLOSTAR 100 UNITS/ML 3 ML PEN SQ SCH (09:00)
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
[2019-09-02 11:29] LABS: Albumin Level 3.6 gm/dl (3.4-5.0); BUN Creatinine Ratio 25.3 (10-20); Calcium 9.2 mg/dl (8.5-10.1); Creatinine Clr Calc Pharmacy 97.4 ml/min; Est GFR (African American) 114.4; Est GFR (Non-African American) 98.7; Potassium 3.6 mmol/L (3.5-5.1)
[2019-09-02 11:32] LABS: Albumin Globulin Ratio 1.2 (0.9-2); Bilirubin,Total 0.3 mg/dl (0.2-1); Globulin 2.9 gm/dl (2.5-4.0); Total Protein 6.5 gm/dl (6.4-8.2)
[2019-09-02] MEDS ORDERED: Nursing to Pharmacy Communication ONE (12:10)
--- NOTE | 2019-09-02 12:18 | Hospitalist Progress Note ---
Date of Service September 02, 2019 Assessment & Plan (1) Cervical spine fracture: -acute Cervical spine fracture of C1 likely secondary to unwitnessed fall -CT scan: Acute minimally distracted fracture of the right anterior arch of C1 and an acute nondisplaced fracture of the left anterior arch of C1. Mild age indeterminate compression fractures of the superior endplates of C7, T1 and T2. -patient was evaluated by orthopedic surgeon and no acute surgical intervention recommended because the evaluation is that this type of fracture should heal on its own. Instead, patient should wear the [place] J collar at all times. Patient will need follow-up x-ray and CAT scan in approximately 4 to 6 weeks. -PT/OT evaluations -pain control, bowel regimen CTA chest on 08/30/19 does not show pulmonary embolism and does not show rib fractures Hypertension -blood pressure elevated today -unclear whether this is situational hypertension from agitation or from pain -continue to monitor Traumatic rhabdomyolysis -creatinine kinase 773 to 849 admission day -on IV fluids -creatinine kinase has downtrended to 381 -will reduce the IV fluid rate from 80 cc/hr to 60 cc/hr history of seizure disorder -there does not appear to be evidence to assume that patient has had seizure recently -continue to monitor in the hospital - no seizure noted in the hospital at this time -continue Keppra -EEG was ordered but no report Type 2 diabetes mellitus with prison use of insulin -Hemoglobin A1c of 4.4 -has been on insulin as 20 units daily, increase to 25 units daily starting on 09/03/19 -sliding scale insulin as needed Bipolar 1 disorder with possible christina History of: ADD (attention deficit disorder), bipolar disorder, OCD (Obsessive- Compulsive Disorder) Psychiatry recommendations 08/31/19: "-Stat dose of Risperdal M tab 1 mg was ordered by this provider at time of evaluation -Patient was recently prescribed risperidone 1 mg twice daily her outpatient psychiatric records - Records also indicate that it was recommended that duloxetine dosage to be decreased to 30 mg daily in the context of recent manic presentation - Can continue mirtazapine 30 mg nightly - Recommend continuing the above medication regimen at this time" -will continue the risperidone, duloxetine, mirtazipine -will appreciate further psychiatry recommendations mild Hyponatremia -serum sodium 131 on admission -monitor serum sodium while on normal saline IV fluids -currently serum sodium is 137 History of Hypothyroidism -continue home dose Levothyroxine History of COPD, remote tobacco use -respiratory status stable History of cervical cancer status post chemoradiation in the past Anemia -history of GI bleed in November 2018 -no acute blood loss noted on this admission -continue iron supplements DVT prophylaxis. SCDs Full code Mr. Antonio Rowland, contact #[phone]. Ms. Bessie Aguliar, contact #[phone]. Subjective Patient seen and examined this AM with nurse. She was unusually euphoric. Patient was very, very cheerful. She reports feeling much better. She feels less pain of her extremities. She reports chest symptoms are gone. She kept saying how much she likes the medical doctor. She joking reported that she feels that she can run a mile.She is not impulsive. She does not run out of her bed. Patient cooperative on exam while sitting on the bed. Patient is wearing the neck collar. Patient acknowledges on her own that sometimes she is loud. She had many questions about her health today. Physical Exam Constitutional: + frail appearing Eyes: PERRL, conjunctivae normal, anicteric sclerae EOM intact bilaterally ENMT: external ear and nose normal, oropharynx normal Neck: neck in collar Respiratory: normal respiratory effort, lungs clear to auscultation Cardiovascular: RRR, no murmur, no edema Gastrointestinal (Abdomen): normal bowel sounds, soft, nontender, no hepatosplenomegaly Musculoskeletal: facial bruising is resolving Neurologic: awake Psychiatric: Orientation: alert and cooperative unusually euphoric. Patient was very, very cheerful. She reports feeling much better. She feels less pain of her extremities. She reports chest symptoms are gone. She kept saying how much she likes the medical doctor. She joking reported that she feels that she can run a mile.She is not impulsive. She does not run out of her bed. Patient cooperative on exam while sitting on the bed. Patient is wearing the neck collar. Patient acknowledges on her own that sometimes she is loud. She had many questions about her health today Results & Data Vital Signs (Past 12 Hours) Vital Signs Temp Pulse Resp BP Pulse Ox 09/02/19 07:00 36.4 C L 99 H 20 146/85 H 94
--- NOTE | 2019-09-02 14:48 | Electroencephalogram ---
EEG Procedure Note Date of Service September 02, 2019 Start / End Times Start Time: 830 End Time: [address] Ware History Agitation question seizures Home Medication List Home Medications Medication Instructions Recorded Confirmed Type Lantus Solostar U-100 Insulin 50 unit SUBCUT HS 12/07/18 08/30/19 History amiloride 5 mg PO DAILY 12/07/18 08/30/19 History duloxetine 30 mg PO DAILY 12/07/18 08/30/19 History ferrous sulfate 324 mg PO BID 12/07/18 08/30/19 History levetiracetam [Keppra] 1,000 mg PO BID 12/07/18 08/30/19 History levothyroxine [Synthroid] 25 mcg PO DAILY 12/07/18 08/30/19 History linagliptin 5 mg PO QAM 12/07/18 08/30/19 History loperamide 2 mg PO QID PRN 12/07/18 08/30/19 History metformin 750 mg PO BID 12/07/18 08/31/19 History mirtazapine [Remeron] 30 mg PO HS 12/07/18 08/30/19 History multivitamin 1 tab PO QAM 12/07/18 08/30/19 History ranitidine HCl [Zantac] 150 mg PO BID 12/07/18 08/31/19 History thiamine HCl (vitamin B1) [Vitamin 100 mg PO BID 12/07/18 08/30/19 History B-1] iron,carbonyl-vitamin C [Vitron-C] 1 tab PO BID 08/30/19 08/31/19 History risperidone [Risperdal] 1 mg PO BID 08/30/19 08/31/19 History albuterol sulfate 2 puff INHALATION QID 08/31/19 08/31/19 History Inpatient Medication List Acetaminophen (Tylenol) 650 mg PO Q4H PRN PRN Reason: Pain or Fever Stop: 09/30/19 00:42 Last Admin: 08/31/19 01:22 Dose: 650 mg Documented by: [id number] Duloxetine HCl (Cymbalta) [facility] [place] Stop: 09/30/19 13:59 Last Admin: 09/02/19 08:38 Dose: 30 mg Documented by: [id number] Admin: 09/01/19 08:59 Dose: 30 mg Documented by: [id number] Admin: 08/31/19 15:46 Dose: 30 mg Documented by: [id number] Ferrous Sulfate (Feosol) 325 mg PO BID [facility] Stop: 09/30/19 08:59 Last Admin: 09/02/19 08:38 Dose: 325 mg Documented by: [id number] Admin: 09/01/19 20:32 Dose: 325 mg Documented by: [id number] Admin: 09/01/19 07:30 Dose: 325 mg Documented by: [id number] Admin: 08/31/19 20:05 Dose: 325 mg Documented by: [id number] Admin: 08/31/19 07:40 Dose: 325 mg Documented by: [id number] Gabapentin (Neurontin) 100 mg PO TID [facility] Stop: 09/30/19 13:59 Last Admin: 09/02/19 13:28 Dose: 100 mg Documented by: [id number] Admin: 09/02/19 08:38 Dose: 100 mg Documented by: [id number] Admin: 09/01/19 20:32 Dose: 100 mg Documented by: [id number] Admin: 09/01/19 15:09 Dose: 100 mg Documented by: [id number] Admin: 09/01/19 07:30 Dose: 100 mg Documented by: [id number] Admin: 08/31/19 20:05 Dose: 100 mg Documented by: [id number] Admin: 08/31/19 12:35 Dose: 100 mg Documented by: [id number] Heparin Sodium (Porcine) (Heparin Sod 100 Unit/Ml Flush) 5 ml FLUSH PRN PRN PRN Reason: Flush Stop: 09/29/19 23:44 Last Admin: 08/31/19 13:56 Dose: 5 ml Documented by: [id number] Hydromorphone HCl (Dilaudid) 0.5 mg IV Q8H PRN PRN Reason: Severe Pain Stop: 09/14/19 10:49 Last Admin: 08/31/19 13:55 Dose: 0.5 mg Documented by: [id number] Sodium Chloride (Nss 1000ml) 1,000 mls @ 60 mls/hr IV .[id number] [facility] Stop: 09/30/19 07:59 Last Admin: 09/02/19 08:42 Dose: 80 mls/hr Documented by: [id number] Infusion: 09/02/19 08:42 Dose: 80 mls/hr Documented by: [id number] Admin: 09/01/19 20:39 Dose: 80 mls/hr Documented by: [id number] Infusion: 09/01/19 20:39 Dose: 80 mls/hr Documented by: [id number] Admin: 09/01/19 09:42 Dose: 80 mls/hr Documented by: [id number] Infusion: 09/01/19 09:36 Dose: 80 mls/hr Documented by: [id number] Admin: 08/31/19 21:06 Dose: 80 mls/hr Documented by: [id number] Infusion: 08/31/19 21:06 Dose: 80 mls/hr Documented by: [id number] Admin: 08/31/19 09:08 Dose: 80 mls/hr Documented by: [id number] Insulin Aspart (Novolog Flexpen) 0 units SC ACHS [facility] Stop: 09/30/19 00:59 Last Admin: 09/02/19 12:15 Dose: 2 units Documented by: [id number] Cosigned by: [id number] Admin: 09/02/19 08:38 Dose: 2 units Documented by: [id number] Cosigned by: [id number] Admin: 09/01/19 20:36 Dose: Not Given Documented by: [id number] Cosigned by: [id number] Admin: 09/01/19 17:20 Dose: 4 units Documented by: [id number] Cosigned by: [id number] Admin: 09/01/19 12:47 Dose: 5 units Documented by: [id number] Cosigned by: [id number] Admin: 09/01/19 09:01 Dose: 4 units Documented by: [id number] Cosigned by: [id number] Admin: 08/31/19 21:04 Dose: Not Given Documented by: [id number] Cosigned by: [id number] Admin: 08/31/19 17:37 Dose: 5 units Documented by: [id number] Cosigned by: [id number] Admin: 08/31/19 12:33 Dose: 2 units Documented by: [id number] Cosigned by: [id number] Admin: 08/31/19 09:01 Dose: 2 units Documented by: [id number] Cosigned by: [id number] Admin: 08/31/19 01:27 Dose: Not Given Documented by: [id number] Cosigned by: [id number] Levetiracetam (Keppra) 1,000 mg PO BID [facility] Stop: 09/30/19 08:59 Last Admin: 09/02/19 08:38 Dose: 1,000 mg Documented by: [id number] Admin: 09/01/19 20:31 Dose: 1,000 mg Documented by: [id number] Admin: 09/01/19 07:29 Dose: 1,000 mg Documented by: [id number] Admin: 08/31/19 20:06 Dose: 1,000 mg Documented by: [id number] Admin: 08/31/19 09:01 Dose: 1,000 mg Documented by: [id number] Levothyroxine Sodium (Synthroid) 25 mcg PO DAILYBB [facility] Stop: 09/30/19 06:29 Last Admin: 09/02/19 07:14 Dose: 25 mcg Documented by: [id number] Admin: 09/01/19 06:04 Dose: 25 mcg Documented by: [id number] Admin: 08/31/19 06:01 Dose: 25 mcg Documented by: [id number] Miconazole Nitrate (Desenex) 1 appln EXT PRN PRN PRN Reason: Affected Skin Folds Stop: 09/30/19 01:40 Last Admin: 08/31/19 06:08 Dose: 1 appln Documented by: [id number] Mirtazapine (Remeron) 30 mg PO HS [facility] Stop: 09/30/19 20:59 Last Admin: 09/01/19 20:32 Dose: 30 mg Documented by: [id number] Admin: 08/31/19 20:07 Dose: 30 mg Documented by: [id number] Multivitamins (Multivitamin Tab) 1 tab PO QAM [facility] Stop: 09/30/19 08:59 Last Admin: 09/02/19 08:38 Dose: 1 tab Documented by: [id number] Admin: 09/01/19 07:32 Dose: 1 tab Documented by: [id number] Admin: 08/31/19 07:40 Dose: 1 tab Documented by: [id number] Oxycodone HCl (Roxicodone Immediate Rel) 5 mg PO Q4H PRN PRN Reason: Pain Stop: 09/14/19 05:40 Last Admin: 09/01/19 07:27 Dose: 5 mg Documented by: [id number] Admin: 08/31/19 23:38 Dose: 5 mg Documented by: [id number] Admin: 08/31/19 20:05 Dose: 5 mg Documented by: [id number] Admin: 08/31/19 15:45 Dose: 5 mg Documented by: [id number] Admin: 08/31/19 10:53 Dose: 5 mg Documented by: [id number] Admin: 08/31/19 06:01 Dose: 5 mg Documented by: [id number] Risperidone (Risperdal M) 0.5 mg PO Q4 PRN PRN Reason: Agitation Stop: 09/30/19 17:09 Last Admin: 09/01/19 19:23 Dose: 0.5 mg Documented by: [id number] Admin: 09/01/19 11:05 Dose: 0.5 mg Documented by: [id number] Admin: 09/01/19 03:34 Dose: 0.5 mg Documented by: [id number] Risperidone (Risperdal M) 1 mg PO TID [facility] Stop: 10/02/19 13:59 Last Admin: 09/02/19 13:42 Dose: 1 mg Documented by: [id number] Sennosides (Senokot) 8.6 mg PO QAM [facility] Stop: 09/30/19 13:14 Last Admin: 09/02/19 08:38 Dose: 8.6 mg Documented by: [id number] Admin: 09/01/19 07:29 Dose: 8.6 mg Documented by: [id number] Admin: 08/31/19 14:17 Dose: 8.6 mg Documented by: [id number] Thiamine HCl (Vitamin B-1) 100 mg PO BID [facility] Stop: 09/30/19 08:59 Last Admin: 09/02/19 08:38 Dose: 100 mg Documented by: [id number] Admin: 09/01/19 20:34 Dose: 100 mg Documented by: [id number] Admin: 09/01/19 07:29 Dose: 100 mg Documented by: [id number] Admin: 08/31/19 20:06 Dose: 100 mg Documented by: [id number] Admin: 08/31/19 07:40 Dose: 100 mg Documented by: [id number] Discontinued Medications Diphenhydramine HCl (Benadryl) 12.5 mg IV NOW STA Stop: 08/31/19 17:15 Last Admin: 08/31/19 17:37 Dose: 12.5 mg Documented by: [id number] Diphenhydramine HCl (Benadryl) 25 mg IV NOW STA Stop: 09/01/19 00:32 Last Admin: 09/01/19 01:16 Dose: 25 mg Documented by: [id number] Lorazepam (Ativan) 1 mg in 2 mls @ 2 mls/min IV NOW STA Stop: 08/30/19 21:31 Last Admin: 08/30/19 22:24 Dose: 1 mls/min Documented by: [id number] Potassium Chloride/Sodium Chloride (Normal Saline W/20 Meq Kcl) 20 meq in 1,000 mls @ 500 mls/hr IV .Q2H ONE Stop: 08/31/19 07:59 Last Infusion: 08/31/19 07:56 Dose: 0 mls/hr Documented by: [id number] Admin: 08/31/19 06:05 Dose: 500 mls/hr Documented by: [id number] Potassium Chloride/Sodium Chloride (Normal Saline W/20 Meq Kcl) 20 meq in 1,000 mls @ 80 mls/hr IV .[id number] ONE Stop: 08/31/19 19:29 Last Infusion: 08/31/19 09:36 Dose: 0 mls/hr Documented by: [id number] Admin: 08/31/19 07:39 Dose: 80 mls/hr Documented by: [id number] Lorazepam (Ativan) 0.25 mg in 0.5 mls @ 0.5 mls/min IV NOW STA Stop: 08/31/19 17:15 Last Admin: 08/31/19 17:37 Dose: 0.5 mls/min Documented by: [id number] Ranitidine HCl 50 mg/ Dextrose 102 mls @ 200 mls/hr IV NOW ONE Stop: 09/01/19 01:30 Last Infusion: 09/01/19 01:51 Dose: 0 mls/hr Documented by: [id number] Admin: 09/01/19 01:15 Dose: 200 mls/hr Documented by: [id number] Insulin Glargine (Lantus Solostar Pen) 15 units SQ BID [facility] Stop: 09/30/19 01:14 Last Admin: 08/31/19 09:00 Dose: 15 units Documented by: [id number] Cosigned by: [id number] Admin: 08/31/19 01:28 Dose: 15 units Documented by: [id number] Cosigned by: [id number] Insulin Glargine (Lantus Solostar Pen) 15 units SQ DAILY [facility] Stop: 10/01/19 08:59 Last Admin: 09/01/19 09:00 Dose: 15 units Documented by: [id number] Cosigned by: [id number] Insulin Glargine (Lantus Solostar Pen) 20 units SQ DAILY [facility] Stop: 10/02/19 08:59 Last Admin: 09/02/19 08:38 Dose: 20 units Documented by: [id number] Cosigned by: [id number] Ioversol (Optiray 320 125ml) 117 ml IV ONCE PRN PRN Reason: Interaction Checking Stop: 09/04/19 00:09 Last Admin: 08/31/19 00:10 Dose: 117 ml Documented by: [id number] Losartan Potassium (Cozaar) [facility] [place] Stop: 09/30/19 08:59 Last Admin: 08/31/19 07:39 Dose: 50 mg Documented by: [id number] Pantoprazole Sodium (Protonix) 40 [facility] [place] Stop: 09/30/19 08:59 Last Admin: 08/31/19 07:41 Dose: 40 mg Documented by: [id number] Pantoprazole Sodium (Protonix) [address] [facility] Stop: 10/01/19 08:59 Last Admin: 09/02/19 08:38 Dose: 40 mg Documented by: [id number] Admin: 09/01/19 07:32 Dose: 40 mg Documented by: [id number] Potassium Chloride (Klor-Con M20) 20 meq PO NOW STA Stop: 08/31/19 07:53 Last Admin: 08/31/19 09:01 Dose: 20 meq Documented by: [id number] Ranitidine HCl (Zantac) 150 mg PO QAM [facility] Stop: 09/30/19 08:59 Last Admin: 09/02/19 08:38 Dose: 150 mg Documented by: [id number] Admin: 09/01/19 09:43 Dose: 150 mg Documented by: [id number] Admin: 08/31/19 07:40 Dose: 150 mg Documented by: [id number] Ranitidine HCl (Zantac) 150 mg PO NOW STA Stop: 08/31/19 14:18 Last Admin: 08/31/19 14:20 Dose: Not Given Documented by: [id number] Risperidone (Risperdal M) 1 mg PO BID [facility] Stop: 09/30/19 20:59 Last Admin: 09/02/19 08:38 Dose: 1 mg Documented by: [id number] Admin: 09/01/19 20:34 Dose: 1 mg Documented by: [id number] Admin: 09/01/19 07:28 Dose: 1 mg Documented by: [id number] Admin: 08/31/19 20:07 Dose: 1 mg Documented by: [id number] Risperidone (Risperdal M) 1 mg PO ONE STA Stop: 08/31/19 11:33 Last Admin: 08/31/19 12:21 Dose: 1 mg Documented by: [id number] Sulfadiazine (Azulfidine Delayed Rel) 1,000 mg PO DAILY [facility] Stop: 09/30/19 08:59 Last Admin: 08/31/19 07:40 Dose: 1,000 mg Documented by: [id number] Description This is a 21 electrode EEG with a single channel dedicated to limited EKG. The electrodes were placed in accordance with the International 10-20 system. This EEG was done as a bedside recording and is of limited value due to patient agitation with frequent movements which interrupt the recording quite frequently at least during the initial 50% of the tracing at which point things calm down a bit and there are some intervals of time during which the EEG is briefly interpretable, appears to be a normally waiting pattern and is characterized by the presence of a low amplitude background alpha rhythm at about 10 Hz and maximum frequency and of 15 to 20 V maximum amplitude, the polymorphic mid upper frequency relatively low voltage theta pattern maximal over the central regions and also symmetrical and a hard to discern but likely present anterior low voltage beta pattern which is also symmetrical No activation procedures were utilized due to the patient's agitated state Drowsiness and light sleep were not clearly recorded At no time during the interpretable portions of the tracing is or evidence for potentially epileptogenic activity in the form polyspike and spike-wave burst, focal sharp waves or focal spikes Interpretation This EEG is technically limited but during the brief periods of time its interpretable reveals no evidence for focal or generalized encephalopathy no evidence for potentially epileptogenic activity Clinical Correlation This is a very limited EEG but is essentially normal during the periods of time that the muscle movement artifacts did not interfere with interpretation and reveals no evidence for encephalopathy of focal or lateralized type nor evidence for potential seizure activity Abhinav Odonnell MD
[2019-09-02] MEDS: ACETAMINOPHEN 325 MG TAB PO PRN (17:26)
[2019-09-02] MEDS: risperiDONE ODT 0.5 MG SOLTAB PO PRN (19:20)
[2019-09-02] MEDS: OXYCODONE HCL IR 5 MG TAB (IMMEDIATE RELEASE) PO PRN ×2 (19:26→23:59)
[2019-09-02] MEDS: MIRTAZAPINE TAB 15 MG TAB PO SCH (21:19)
[2019-09-03] MEDS: PANTOprazole 40 MG TAB PO SCH (06:14)
[2019-09-03] MEDS: LEVOTHYROXINE SODIUM 25 MCG TABLET PO SCH (06:14)
[2019-09-03] MEDS: DULOXETINE HCL 30 MG CAP PO SCH (07:51)
[2019-09-03] MEDS: OXYCODONE HCL IR 5 MG TAB (IMMEDIATE RELEASE) PO PRN (07:51)
[2019-09-03] MEDS: SENNA 8.6 MG TAB PO SCH (07:52)
[2019-09-03] MEDS: FERROUS SULFATE 325 MG TAB PO SCH ×2 (07:52→20:02)
[2019-09-03] MEDS: MULTIVITAMIN TAB PO SCH (07:52)
[2019-09-03] MEDS: RISPERIDONE ODT 1MG PO SCH ×3 (07:53→20:01)
[2019-09-03] MEDS: levETIRAcetam 500 MG TAB PO SCH ×2 (07:53→20:02)
[2019-09-03] MEDS: THIAMINE HCL 100 MG TAB PO SCH ×2 (07:53→20:01)
[2019-09-03] MEDS: GABAPENTIN 100 MG CAP PO SCH ×3 (07:54→20:01)
--- NOTE | 2019-09-03 07:54 | Hospitalist Progress Note ---
Date of Service September 03, 2019 Assessment & Plan (1) Cervical spine fracture: -acute Cervical spine fracture of C1 likely secondary to unwitnessed fall -CT scan: Acute minimally distracted fracture of the right anterior arch of C1 and an acute nondisplaced fracture of the left anterior arch of C1. Mild age indeterminate compression fractures of the superior endplates of C7, T1 and T2. -patient was evaluated by orthopedic surgeon and no acute surgical intervention recommended because the evaluation is that this type of fracture should heal on its own. Instead, patient should wear the [place] J collar at all times. Patient will need follow-up x-ray and CAT scan in approximately 4 to 6 weeks. -PT/OT evaluations -pain control, bowel regimen CTA chest on 08/30/19 does not show pulmonary embolism and does not show rib fractures Hypertension -will follow blood pressures without anti-hypertensives for now Traumatic rhabdomyolysis -creatinine kinase 773 to 849 admission day -on IV fluids -creatinine kinase has downtrended to 381 on last checked lab, continue on low rate IV fluids, follow labs history of seizure disorder -there does not appear to be evidence to assume that patient has had seizure recently -continue to monitor in the hospital - no seizure noted in the hospital at this time -continue Keppra -EEG was completed on this admission: no evidence for encephalopathy of focal or lateralized type nor evidence for potential seizure activity Type 2 diabetes mellitus with [facility] use of insulin -Hemoglobin A1c of 4.4 -Lantus 25 units daily -sliding scale insulin as needed Bipolar 1 disorder with possible christina History of: ADD (attention deficit disorder), bipolar disorder, OCD (Obsessive- Compulsive Disorder) Psychiatry recommendations 08/31/19: "-Stat dose of Risperdal M tab 1 mg was ordered by this provider at time of evaluation -Patient was recently prescribed risperidone 1 mg twice daily her outpatient psychiatric records - Records also indicate that it was recommended that duloxetine dosage to be decreased to 30 mg daily in the context of recent manic presentation - Can continue mirtazapine 30 mg nightly - Recommend continuing the above medication regimen at this time" -will continue the risperidone, duloxetine, mirtazipine -will appreciate further psychiatry recommendations mild Hyponatremia -serum sodium 131 on admission -monitor serum sodium while on normal saline IV fluids -recently serum sodium is 137 History of Hypothyroidism -continue home dose Levothyroxine History of COPD, remote tobacco use -respiratory status stable History of cervical cancer status post chemoradiation in the past Anemia -history of GI bleed in November 2018 -no acute blood loss noted on this admission -continue iron supplements DVT prophylaxis. SCDs Full code Mr. Antonio Rowland, contact #[phone]. Ms. Bessie Aguilar, contact #[phone]. Disposition: awaiting for possible physical rehabilitation placement Subjective patient able to ambulate with IV pole with nurse following her in the room. patient appears to be good spirits today. she reported that her daughter was in the [place] yesterday and this is corroborated by nursing. Patient reports she discussed with her daughter about possible physical rehabilitation stay after hospital stay. Patient appears to be in favor with this idea. She is wearing the neck collar. She does not have acute pain during time of exam. no vomiting. she does not have complaints of symptoms during my exam Physical Exam Constitutional: + frail appearing Eyes: PERRL, conjunctivae normal, anicteric sclerae EOM intact bilaterally ENMT: external ear and nose normal, oropharynx normal Neck: neck in collar Respiratory: normal respiratory effort, lungs clear to auscultation Cardiovascular: RRR, no murmur, no edema Gastrointestinal (Abdomen): normal bowel sounds, soft, nontender, no hepatosplenomegaly Musculoskeletal: patient able to ambulate with IV pole with nurse following her in the room Neurologic: PERRL, EOMI, accommodation nl, no face palsy, no dysarthria CN's II-XI intact bilaterally and moves all extremities Psychiatric: Orientation: alert and cooperative Results & Data Vital Signs (Past 12 Hours) Vital Signs Temp Pulse Resp BP Pulse Ox 09/03/19 07:00 37.1 C 106 H 18 151/72 H 95 09/02/19 23:16 36.6 C 83 20 144/72 H 93
[2019-09-03] MEDS ORDERED: POLYETHYLENE (MIRALAX) 17 GM PACK PO PRN (07:58)
[2019-09-03 08:57] LABS: BUN Creatinine Ratio 18.4 (10-20); Calcium 8.9 mg/dl (8.5-10.1); Creatinine Clr Calc Pharmacy 111.6 ml/min; Est GFR (African American) 119.6; Est GFR (Non-African American) 103.2; Potassium 3.6 mmol/L (3.5-5.1)
[2019-09-03] MEDS: INSULIN GLARGINE SOLOSTAR 100 UNITS/ML 3 ML PEN SQ SCH (09:47)
[2019-09-03] MEDS: INSULIN ASPART 100 UNITS/ML 3 ML PEN SC SCH ×4 (09:49→20:08)
[2019-09-03] MEDS: MICONAZOLE NITRATE POWDER 43 GM EXT PRN (09:53)
[2019-09-03] MEDS: ACETAMINOPHEN 325 MG TAB PO PRN ×2 (13:26→20:07)
[2019-09-03] MEDS: ONDANSETRON INJ 2 MG/ML 2 ML VIAL IV PRN (14:08)
[2019-09-03] MEDS: SODIUM CHLORIDE 0.9% 1000ML 1,000 ML IV SCH (15:39)
[2019-09-03] MEDS: risperiDONE ODT 0.5 MG SOLTAB PO PRN (15:39)
[2019-09-03] MEDS: MIRTAZAPINE TAB 15 MG TAB PO SCH (20:01)
[2019-09-03] MEDS: TRAZODONE HCL 100 MG TAB PO SCH (20:02)
[2019-09-04] MEDS: ACETAMINOPHEN 325 MG TAB PO PRN ×3 (04:43→19:20)
[2019-09-04] MEDS: PANTOprazole 40 MG TAB PO SCH (05:42)
[2019-09-04] MEDS: LEVOTHYROXINE SODIUM 25 MCG TABLET PO SCH (05:42)
[2019-09-04] MEDS: HYDROmorphone INJ 0.5 MG/0.5 ML SYR IV PRN (05:44)
[2019-09-04] MEDS: ONDANSETRON INJ 2 MG/ML 2 ML VIAL IV PRN ×2 (05:44→12:45)
[2019-09-04 06:55] LABS: Albumin Level 3.4 gm/dl (3.4-5.0); BUN Creatinine Ratio 19.1 (10-20); Calcium 8.9 mg/dl (8.5-10.1); Creatinine Clr Calc Pharmacy 101.7 ml/min; Est GFR (Non-African American) 100.1; Potassium 3.7 mmol/L (3.5-5.1)
[2019-09-04 06:58] LABS: Albumin Globulin Ratio 1.1 (0.9-2); Bilirubin,Total 0.4 mg/dl (0.2-1); Total Protein 6.4 gm/dl (6.4-8.2)
[2019-09-04] MEDS: GABAPENTIN 100 MG CAP PO SCH ×3 (08:19→20:24)
[2019-09-04] MEDS: RISPERIDONE ODT 1MG PO SCH ×3 (08:20→20:22)
[2019-09-04] MEDS: FERROUS SULFATE 325 MG TAB PO SCH ×2 (08:21→20:22)
[2019-09-04] MEDS: SENNA 8.6 MG TAB PO SCH (08:21)
[2019-09-04] MEDS: THIAMINE HCL 100 MG TAB PO SCH ×2 (08:21→20:23)
[2019-09-04] MEDS: levETIRAcetam 500 MG TAB PO SCH ×2 (08:21→20:23)
[2019-09-04] MEDS: MULTIVITAMIN TAB PO SCH (08:22)
[2019-09-04] MEDS: DULOXETINE HCL 30 MG CAP PO SCH (08:22)
[2019-09-04] MEDS: INSULIN GLARGINE SOLOSTAR 100 UNITS/ML 3 ML PEN SQ SCH (08:25)
[2019-09-04] MEDS: SODIUM CHLORIDE 0.9% 1000ML 1,000 ML IV SCH (08:25)
[2019-09-04] MEDS: INSULIN ASPART 100 UNITS/ML 3 ML PEN SC SCH ×4 (08:25→20:29)
--- NOTE | 2019-09-04 09:59 | Hospitalist Progress Note ---
Date of Service September 04, 2019 Assessment & Plan (1) Cervical spine fracture: -acute Cervical spine fracture of C1 likely secondary to unwitnessed fall -CT scan: Acute minimally distracted fracture of the right anterior arch of C1 and an acute nondisplaced fracture of the left anterior arch of C1. Mild age indeterminate compression fractures of the superior endplates of C7, T1 and T2. -patient was evaluated by orthopedic surgeon and no acute surgical intervention recommended because the evaluation is that this type of fracture should heal on its own. Instead, patient should wear the [place] J collar at all times. Patient will need follow-up x-ray and CAT scan in approximately 4 to 6 weeks. -PT/OT evaluations -pain control, bowel regimen CTA chest on 08/30/19 does not show pulmonary embolism and does not show rib fractures Hypertension -will follow blood pressures without anti-hypertensives for now Traumatic rhabdomyolysis -creatinine kinase 773 to 849 admission day -had been on IV fluids on this hospital stay -the creatinine kinase normalizing as 212 and plans to take off IV fluids. encourage patient mobility as tolerated without IV pole for later today history of seizure disorder -there does not appear to be evidence to assume that patient has had seizure recently -continue to monitor in the hospital - no seizure noted in the hospital at this time -continue Keppra -EEG was completed on this admission: no evidence for encephalopathy of focal or lateralized type nor evidence for potential seizure activity Type 2 diabetes mellitus with shelter use of insulin -Hemoglobin A1c of 4.4 -Lantus 25 units daily -sliding scale insulin as needed Bipolar 1 disorder with possible christina History of: ADD (attention deficit disorder), bipolar disorder, OCD (Obsessive- Compulsive Disorder) -Psychiatry recommendations 09/02/19: Risperidone titrated to 1mg TID. Recommend sparing use of prn 0.5mg dosing, and preference for behavioral management if possible; Continue mirtazapine 30mg qHS and duloxetine 30mg daily -psychiatry recommendations on 09/02/19 also advised prn trazadone 100 mg qhs as sleep aid, patient received trazodone on 09/03/19 and has reported good sleep -continue the risperidone, duloxetine, mirtazipine mild Hyponatremia -serum sodium 131 on admission -monitor serum sodium while on normal saline IV fluids -recently serum sodium is 137 History of Hypothyroidism -continue home dose Levothyroxine History of COPD, remote tobacco use -respiratory status stable History of cervical cancer status post chemoradiation in the past Anemia -history of GI bleed in November 2018 -no acute blood loss noted on this admission -continue iron supplements DVT prophylaxis. SCDs Full code Mr. Antonio Rowland, contact #[phone]. Ms. Bessie Aguilar, contact #[phone]. Disposition: awaiting for possible physical rehabilitation placement, may be able to have discharge to a physical therapy rehabilitation facility 09/05/19 if accepting facility and insurance approval Subjective Patient seen and examined with nurse. She is pleasant today. She reports having good night of sleep. She denies acute pain. continues to wear neck collar. the creatinine kinase normalizing as 212 and plans to take off IV fluids. encourage patient mobility as tolerated without IV pole for later today. Physical Exam Constitutional: + thin Eyes: PERRL, conjunctivae normal, anicteric sclerae EOM intact bilaterally ENMT: external ear and nose normal, oropharynx normal Neck: neck collar Respiratory: normal respiratory effort, lungs clear to auscultation Cardiovascular: RRR, no murmur, no edema Gastrointestinal (Abdomen): normal bowel sounds, soft, nontender, no hepatosplenomegaly Neurologic: PERRL, EOMI, accommodation nl, no face palsy, no dysarthria CN's II-XI intact bilaterally and moves all extremities Psychiatric: Orientation: alert and cooperative Results & Data Vital Signs (Past 12 Hours) Vital Signs Temp Pulse Resp BP BP Pulse Ox 09/04/19 07:00 36.7 C 96 H 18 167/84 H 92 09/03/19 23:32 84 16 159/82 H 95 09/03/19 23:02 36.7 C 108 H 21 193/84 H 195/106 H 95
--- NOTE | 2019-09-04 10:58 | Psychiatric Progress Note ---
Date of Service September 04, 2019 Impression / Recommendations Impression 73-year-old female admitted medically on 08/30/2019 due to C1 fracture status post assumed fall, of unknown cause as patient does not recall the event. Patient initially presented to the ED with her and daughter for mental health evaluation due to worsening manic presentation. Home psychiatric regimen was resumed to include risperidone 1 mg twice daily, and mirtazapine 30 mg nightly. Documentation from her outpatient psychiatrist suggested reducing the dose of duloxetine from a home dose of 90 mg to 30 mg, given recent manic presentation. Pt has demonstrated some mild improvements, but continues to demonstrate some manic behavior. Will plan to titrate risperidone to 1mg TID, and continue use of prn 0.5mg risperidone only as needed for agitation/anxiety. This was discussed with both the patient and her daughter, who both agree with the treatment plan. While sleep is expected to improve as risperidone becomes more effective, it is possible to consider prn trazodone 100mg for sleep if nece ssary. Plan: 08/31 - Stat dose of Risperdal M tab 1 mg was ordered by this provider at time of evaluation - Patient was recently prescribed risperidone 1 mg twice daily her outpatient psychiatric records - Could consider Risperdal M tab 0.5mg PO q4h prn - with preference for behavioral redirection and reassurance - Records also indicate that it was recommended that duloxetine dosage to be decreased to 30 mg daily in the context of recent manic presentation - Can continue mirtazapine 30 mg nightly - Recommend continuing the above medication regimen at this time 09/02 - Risperidone titrated to 1mg TID. Recommend sparing use of prn 0.5mg dosing, and preference for behavioral management if possible. - Continue mirtazapine 30mg qHS and duloxetine 30mg daily - Can consider prn dose of trazodone 100mg qHS if sleep remains a difficulty - ideally, sleep will be corrected as patient stabilizes and continues to receive above medications - She continues to deny homicidal ideation or suicidal ideation, or other signs of acute psychosis 09/04 --improved from a psych standpoint, I would not want to hold Cymbalta/decrease further as likely helpful for pain during recovery/PT. No evidence of EPS. Patient remains psychiatrically stable for discharge to appropriate level of rehab. Interval History Chief Complaint "I'm getting used to the collar, just keeping myself occupied". Review of Systems Notes denies pain, N, V, CHAUDHARY, muscle tightness Subjective Subjective Initial consult reviewed, patient's Cymbalta decreased and resumed Risperdal without incident. She remains hypertalkative at times but cooperative with care. No psychomotor restlessness, writing in journal provided by liaison nurse. Physical Exam Mental Examination The patient presented as alert and cooperative. The patient was well groomed. Eye contact was fair. No psychomotor restlessness or agitation was noted. Speech was talkative but not pressured. Affect was mood congruent. The patients mood appeared euthymic. Thought processes were clear, coherent. Thought content/perception was reality based without delusions. The patient denied suicidal and homicidal ideation. The patient denied hallucinations and did not appear to be responding to internal stimuli. Vital Signs (Past 24 Hours) Last Vital Signs Temp 36.7 C 09/04/19 07:00 Pulse 96 H 09/04/19 07:00 Resp 18 09/04/19 07:00 BP 167/84 H 09/04/19 07:00 Pulse Ox 92 09/04/19 07:00 Results & Data Laboratory Results Laboratory Results - last 24 hr 09/03/19 09/03/19 09/03/19 11:10 16:21 20:07 Sodium Potassium Chloride Carbon Dioxide Anion Gap BUN Creatinine Est Cr Clr Drug Dosing Est GFR ( Amer) Est GFR (Non-Af Amer) BUN/Creatinine Ratio Glucose POC Glucose 223 H 144 H 155 H Calcium Total Bilirubin AST ALT Alkaline Phosphatase Total Creatine Kinase Total Protein Albumin Globulin Albumin/Globulin Ratio 09/04/19 09/04/19 05:57 07:23 Sodium 137 Potassium 3.7 Chloride 103 Carbon Dioxide 28 Anion Gap 6.0 BUN 9 Creatinine 0.45 L Est Cr Clr Drug Dosing 101.7 Est GFR ( Amer) 116.0 Est GFR (Non-Af Amer) 100.1 BUN/Creatinine Ratio 19.1 Glucose 258 H POC Glucose 224 H Calcium 8.9 Total Bilirubin 0.4 AST 36 ALT 39 Alkaline Phosphatase 150 H Total Creatine Kinase 212 H Total Protein 6.4 Albumin 3.4 Globulin 3.0 Albumin/Globulin Ratio 1.1 Current Inpatient Medications Current Inpatient Medications: Current Inpatient Medications Acetaminophen (Tylenol) 325 mg PO Q6H PRN PRN Reason: Pain or Fever Stop: 09/30/19 00:42 Last Admin: 09/04/19 04:43 Dose: 325 mg Documented by: Dextrose (Dextrose 50%) 25 - 50 ml IV UD PRN; Protocol PRN Reason: Hypoglycemia Protocol Stop: 09/30/19 00:42 Duloxetine HCl (Cymbalta) 30 mg PO QAM VALERIE Stop: 09/30/19 13:59 Last Admin: 09/04/19 08:22 Dose: 30 mg Documented by: Ferrous Sulfate (Feosol) 325 mg PO BID VALERIE Stop: 09/30/19 08:59 Last Admin: 09/04/19 08:21 Dose: 325 mg Documented by: Gabapentin (Neurontin) 100 mg PO TID VALERIE Stop: 09/30/19 13:59 Last Admin: 09/04/19 08:19 Dose: 100 mg Documented by: Glucagon (Glucagen) 1 mg SQ UD PRN; Protocol PRN Reason: Hypoglycemia Protocol Stop: 09/30/19 00:42 Glucose (Glucose 40%) 15 - 30 gm PO UD PRN; Protocol PRN Reason: Hypoglycemia Protocol Stop: 09/30/19 00:42 Glucose (Dex4 Glucose) 4 - 8 tabs PO UD PRN; Protocol PRN Reason: Hypoglycemia Protocol Stop: 09/30/19 00:42 Heparin Sodium (Porcine) (Heparin Sod 100 Unit/Ml Flush) 5 ml FLUSH PRN PRN PRN Reason: Flush Stop: 09/29/19 23:44 Last Admin: 08/31/19 13:56 Dose: 5 ml Documented by: Insulin Aspart (Novolog Flexpen) 0 units SC ACHS [facility] Stop: 09/30/19 00:59 Last Admin: 09/04/19 08:25 Dose: 6 units Documented by: Insulin Glargine (Lantus Solostar Pen) 25 units SQ DAILY VALERIE Stop: 10/03/19 08:59 Last Admin: 09/04/19 08:25 Dose: 25 units Documented by: Levetiracetam (Keppra) 1,000 mg PO BID VALERIE Stop: 09/30/19 08:59 Last Admin: 09/04/19 08:21 Dose: 1,000 mg Documented by: Levothyroxine Sodium (Synthroid) 25 mcg PO DAILYBB [facility] Stop: 09/30/19 06:29 Last Admin: 09/04/19 05:42 Dose: 25 mcg Documented by: Miconazole Nitrate (Desenex) 1 appln EXT PRN PRN PRN Reason: Affected Skin Folds Stop: 09/30/19 01:40 Last Admin: 09/03/19 09:53 Dose: 1 appln Documented by: Mirtazapine (Remeron) 30 mg PO HS [facility] Stop: 09/30/19 20:59 Last Admin: 09/03/19 20:01 Dose: 30 mg Documented by: Miscellaneous (Carbohydrates For Hypoglycemia) 15 - 30 gm PO UD PRN PRN Reason: Hypoglycemia Treatment Stop: 09/30/19 00:42 Multivitamins (Multivitamin Tab) [facility] [place] Stop: 09/30/19 08:59 Last Admin: 09/04/19 08:22 Dose: 1 tab Documented by: Ondansetron HCl (Zofran) 4 mg IV Q6H PRN PRN Reason: Nausea Stop: 10/03/19 07:38 Last Admin: 09/04/19 05:44 Dose: 4 mg Documented by: Pantoprazole Sodium (Protonix) 40 mg PO DAILY@0630 [facility] Stop: 10/03/19 06:29 Last Admin: 09/04/19 05:42 Dose: 40 mg Documented by: Polyethylene Glycol (Miralax Powder Packet) 17 gm PO DAILY PRN PRN Reason: Constipation Stop: 10/03/19 07:57 Last Admin: 09/04/19 04:49 Dose: 17 gm Documented by: Ranitidine HCl (Zantac) 150 mg PO DAILY@0630 [facility] Stop: 10/03/19 06:29 Last Admin: 09/04/19 05:42 Dose: 150 mg Documented by: Risperidone (Risperdal M) 0.5 mg PO Q4 PRN PRN Reason: Agitation Stop: 09/30/19 17:09 Last Admin: 09/03/19 15:39 Dose: 0.5 mg Documented by: Risperidone (Risperdal M) 1 mg PO TID [facility] Stop: 10/02/19 13:59 Last Admin: 09/04/19 08:20 Dose: 1 mg Documented by: Sennosides (Senokot) 8.6 mg PO QAM [facility] Stop: 09/30/19 13:14 Last Admin: 09/04/19 08:21 Dose: 8.6 mg Documented by: Thiamine HCl (Vitamin B-1) 100 mg PO BID [facility] Stop: 09/30/19 08:59 Last Admin: 09/04/19 08:21 Dose: 100 mg Documented by: Trazodone HCl (Desyrel) 100 mg PO [facility]IE Stop: 10/03/19 20:59 Last Admin: 09/03/19 20:02 Dose: 100 mg Documented by: CPT Code CPT Code 30483
[2019-09-04] MEDS: risperiDONE ODT 0.5 MG SOLTAB PO PRN ×2 (11:19→19:19)
[2019-09-04] MEDS: HEPARIN 100 UNIT/ML 5ML FLUSH FLUSH PRN (12:45)
[2019-09-04] MEDS: IBUPROFEN 200 MG TAB PO PRN (15:35)
[2019-09-04] MEDS: TRAZODONE HCL 100 MG TAB PO SCH (20:22)
[2019-09-04] MEDS: MIRTAZAPINE TAB 15 MG TAB PO SCH (20:23)
[2019-09-05] MEDS: risperiDONE ODT 0.5 MG SOLTAB PO PRN ×2 (03:30→19:23)
[2019-09-05] MEDS: HEPARIN 100 UNIT/ML 5ML FLUSH FLUSH PRN (05:42)
[2019-09-05] MEDS: LEVOTHYROXINE SODIUM 25 MCG TABLET PO SCH (06:06)
[2019-09-05] MEDS: PANTOprazole 40 MG TAB PO SCH (06:06)
[2019-09-05] MEDS: IBUPROFEN 200 MG TAB PO PRN (07:21)
[2019-09-05] MEDS: RISPERIDONE ODT 1MG PO SCH ×3 (07:22→21:07)
[2019-09-05] MEDS: GABAPENTIN 100 MG CAP PO SCH ×3 (07:22→21:07)
[2019-09-05] MEDS: DULOXETINE HCL 30 MG CAP PO SCH (08:02)
[2019-09-05] MEDS: SENNA 8.6 MG TAB PO SCH (08:02)
[2019-09-05] MEDS: MULTIVITAMIN TAB PO SCH (08:02)
[2019-09-05] MEDS: THIAMINE HCL 100 MG TAB PO SCH ×2 (08:03→21:03)
[2019-09-05] MEDS: levETIRAcetam 500 MG TAB PO SCH ×2 (08:03→21:09)
[2019-09-05] MEDS: FERROUS SULFATE 325 MG TAB PO SCH ×2 (08:03→21:09)
[2019-09-05] MEDS: INSULIN GLARGINE SOLOSTAR 100 UNITS/ML 3 ML PEN SQ SCH (08:04)
[2019-09-05] MEDS: INSULIN ASPART 100 UNITS/ML 3 ML PEN SC SCH ×4 (08:06→21:04)
--- NOTE | 2019-09-05 13:00 | Hospitalist Progress Note ---
Date of Service September 05, 2019 Assessment & Plan (1) Cervical spine fracture: -acute Cervical spine fracture of C1 likely secondary to unwitnessed fall -CT scan: Acute minimally distracted fracture of the right anterior arch of C1 and an acute nondisplaced fracture of the left anterior arch of C1. Mild age indeterminate compression fractures of the superior endplates of C7, T1 and T2. -patient was evaluated by orthopedic surgeon on 08/31/19 and no acute surgical intervention recommended because the evaluation is that this type of fracture should heal on its own. Instead, patient should wear the [place] J collar at all times. Patient will need follow-up x-ray and CAT scan in approximately 4 to 6 weeks. -PT/OT has been evaluating the patient -patient's pain appears to be reasonably controlled without narcotics at this time CTA chest on 08/30/19 does not show pulmonary embolism and does not show rib fractures Hypertension -start amlodipine 5 mg daily for blood pressure Traumatic rhabdomyolysis -creatinine kinase 773 to 849 admission day -had been on IV fluids on this hospital stay and IV fluids stopped on 09/04/19 when creatinine kinase 212 -creatinine kinase is normal as 159 on 09/05/19 history of seizure disorder -there does not appear to be evidence to assume that patient has had seizure recently -no seizure noted in the hospital at this time -EEG was completed on this admission: no evidence for encephalopathy of focal or lateralized type nor evidence for potential seizure activity -continue Keppra Type 2 diabetes mellitus with fci use of insulin -Hemoglobin A1c of 4.4 -Lantus 25 units daily -sliding scale insulin as needed Bipolar 1 disorder with possible christina History of: ADD (attention deficit disorder), bipolar disorder, OCD (Obsessive- Compulsive Disorder) -Psychiatry recommendations 09/02/19: Risperidone titrated to 1mg TID. Recommend sparing use of prn 0.5mg dosing, and preference for behavioral management if possible; Continue mirtazapine 30mg qHS and duloxetine 30mg daily -psychiatry recommendations on 09/02/19 also advised prn trazadone 100 mg qhs as sleep aid, patient reports good sleep with trazodone -continue the risperidone, duloxetine, mirtazipine mild Hyponatremia -serum sodium 131 on admission -recently serum sodium is normal as 137 on last check on 09/04/19 History of Hypothyroidism -continue home dose Levothyroxine History of COPD, remote tobacco use -respiratory status stable History of cervical cancer status post chemoradiation in the past Anemia -history of GI bleed in November 2018 -no acute blood loss noted on this admission -continue iron supplements DVT prophylaxis. SCDs Full code Mr. Antonio Rowland, contact #[phone]. Ms. Bessie Aguilar, contact #[phone]. Disposition: Patient has been awaiting for physical rehabilitation placement. Office of aging also involved in patient's discharge planning. awaiting medical case manager to help determine's patient's post hospital discharge placement. at this time, the patient has been psychiatrically stable with psychiatry signed off of patient's inpatient care on 09/04/19. Subjective Patient is calm. cooperative. she reports good sleep. she attributes good sleep with the trazodone at night. Patient reports that she has been able to ambulate. The nurses follow patient when she goes to bathroom and patient denies that she needs someone else to physically support her. Patient denies shortness of breath. breathing on room air. no abdominal pain. no chest pain. Physical Exam Constitutional: + thin Eyes: PERRL, conjunctivae normal, anicteric sclerae EOM intact bilaterally ENMT: external ear and nose normal, oropharynx normal Neck: neck in collar Respiratory: normal respiratory effort, lungs clear to auscultation Cardiovascular: RRR, no murmur, no edema Gastrointestinal (Abdomen): normal bowel sounds, soft, nontender, no hepatosplenomegaly Neurologic: PERRL, EOMI, accommodation nl, no face palsy, no dysarthria CN's II-XI intact bilaterally and moves all extremities Psychiatric: Orientation: alert and cooperative Results & Data Vital Signs (Past 12 Hours) Vital Signs Temp Pulse Resp BP Pulse Ox 09/05/19 12:12 36.4 C L 91 H 18 148/72 H 95 09/05/19 07:55 36.3 C L 84 20 155/84 H 93 09/05/19 07:00 36.7 C 100 H 20 151/74 H 97 09/05/19 03:22 36.5 C 98 H 18 158/86 H 92
[2019-09-05] MEDS: AMLODIPINE BESYLATE 5 MG TAB PO SCH (14:00)
[2019-09-05] MEDS: ACETAMINOPHEN 325 MG TAB PO PRN (14:01)
[2019-09-05] MEDS: MIRTAZAPINE TAB 15 MG TAB PO SCH (21:04)
[2019-09-05] MEDS: TRAZODONE HCL 100 MG TAB PO SCH (21:08)
[2019-09-05] MEDS ORDERED: ZOLPIDEM TARTRATE 5 MG TAB PO ONE (23:45)
[2019-09-06] MEDS: LEVOTHYROXINE SODIUM 25 MCG TABLET PO SCH (06:04)
[2019-09-06] MEDS: PANTOprazole 40 MG TAB PO SCH (06:05)
[2019-09-06] MEDS: ACETAMINOPHEN 325 MG TAB PO PRN ×2 (06:38→13:36)
[2019-09-06] MEDS: FERROUS SULFATE 325 MG TAB PO SCH (07:43)
[2019-09-06] MEDS: MULTIVITAMIN TAB PO SCH (07:43)
[2019-09-06] MEDS: DULOXETINE HCL 30 MG CAP PO SCH (07:43)
[2019-09-06] MEDS: levETIRAcetam 500 MG TAB PO SCH (07:43)
[2019-09-06] MEDS: SENNA 8.6 MG TAB PO SCH (07:44)
[2019-09-06] MEDS: THIAMINE HCL 100 MG TAB PO SCH (07:44)
[2019-09-06] MEDS: AMLODIPINE BESYLATE 5 MG TAB PO SCH (07:44)
[2019-09-06] MEDS: RISPERIDONE ODT 1MG PO SCH ×2 (07:44→13:41)
[2019-09-06] MEDS: GABAPENTIN 100 MG CAP PO SCH ×2 (07:44→13:41)
[2019-09-06] MEDS: INSULIN GLARGINE SOLOSTAR 100 UNITS/ML 3 ML PEN SQ SCH (07:55)
[2019-09-06] MEDS: INSULIN ASPART 100 UNITS/ML 3 ML PEN SC SCH ×2 (07:56→12:10)
[2019-09-06] MEDS: HEPARIN 100 UNIT/ML 5ML FLUSH FLUSH PRN (08:39)
--- NOTE | 2019-09-06 12:38 | Hospitalist Progress Note ---
Date of Service September 06, 2019 Assessment & Plan (1) Cervical spine fracture: -acute Cervical spine fracture of C1 likely secondary to unwitnessed fall -CT scan: Acute minimally distracted fracture of the right anterior arch of C1 and an acute nondisplaced fracture of the left anterior arch of C1. Mild age indeterminate compression fractures of the superior endplates of C7, T1 and T2. -patient was evaluated by orthopedic surgeon on 08/31/19 and no acute surgical intervention recommended because the evaluation is that this type of fracture should heal on its own. Instead, patient should wear the [place] J collar at all times. Patient will need follow-up x-ray and CAT scan in approximately 4 to 6 weeks. -PT/OT has been evaluating the patient -patient's pain appears to be reasonably controlled without narcotics at this time CTA chest on 08/30/19 does not show pulmonary embolism and does not show rib fractures Hypertension -on amlodipine 5 mg daily for blood pressure which was started on this hospital stay Traumatic rhabdomyolysis -creatinine kinase 773 to 849 admission day -had been on IV fluids on this hospital stay and IV fluids stopped on 09/04/19 when creatinine kinase 212 -creatinine kinase is normal as 159 on 09/05/19 history of seizure disorder -there does not appear to be evidence to assume that patient has had seizure recently -no seizure noted in the hospital at this time -EEG was completed on this admission: no evidence for encephalopathy of focal or lateralized type nor evidence for potential seizure activity -continue Keppra Type 2 diabetes mellitus with terminal carman use of insulin -Hemoglobin A1c of 4.4 -Lantus 25 units daily -sliding scale insulin as needed Bipolar 1 disorder with possible christina History of: ADD (attention deficit disorder), bipolar disorder, OCD (Obsessive- Compulsive Disorder) -Psychiatry recommendations 09/02/19: Risperidone titrated to 1mg TID. Recommend sparing use of prn 0.5mg dosing, and preference for behavioral management if possible; Continue mirtazapine 30mg qHS and duloxetine 30mg daily -psychiatry recommendations on 09/02/19 also advised prn trazadone 100 mg qhs as sleep aid, patient reports good sleep with trazodone -continue the risperidone, duloxetine, mirtazipine -at this time, the patient has been psychiatrically stable with psychiatry signed off of patient's inpatient care on 09/04/19. mild Hyponatremia -serum sodium 131 on admission -recently serum sodium is normal as 137 on last check on 09/04/19 History of Hypothyroidism -continue home dose Levothyroxine History of COPD, remote tobacco use -respiratory status stable History of cervical cancer status post chemoradiation in the past Anemia -history of GI bleed in November 2018 -no acute blood loss noted on this admission -continue iron supplements DVT prophylaxis. SCDs Full code Mr. Antonio Rowland, contact #[phone]. Ms. Bessie Aguilar, contact #[phone]. Disposition: Patient is pending insurance authorization for physical rehabilitation placement for [facility]. Office of Aging also involved in patient's discharge planning and case specialist is awaiting letter of determination from the Dept of Human Services.at this time, the patient has been psychiatrically stable with psychiatry signed off of patient's inpatient care on 09/04/19. Subjective Patient is pleasant. cooperative. Sitting on the bed. neck in collar. denies acute distress. no shortness of breath. no abdominal pain. no dizziness. no lightheadedness. no vomiting. Physical Exam Constitutional: + thin Eyes: PERRL, conjunctivae normal, anicteric sclerae EOM intact bilaterally ENMT: external ear and nose normal, oropharynx normal Neck: neck in collar Respiratory: normal respiratory effort, lungs clear to auscultation Cardiovascular: RRR, no murmur, no edema Gastrointestinal (Abdomen): normal bowel sounds, soft, nontender, no hepatosplenomegaly Neurologic: PERRL, EOMI, accommodation nl, no face palsy, no dysarthria CN's II-XI intact bilaterally and moves all extremities Psychiatric: Orientation: alert and cooperative Results & Data Vital Signs (Past 12 Hours) Vital Signs Temp Pulse Resp BP Pulse Ox 09/06/19 08:06 36.9 C 93 H 18 134/79 95
[2019-09-06] MEDS: ONDANSETRON INJ 2 MG/ML 2 ML VIAL IV PRN (13:36)
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
[2019-09-06] MEDS: risperiDONE ODT 0.5 MG SOLTAB PO PRN (16:13)
== END 2019-09-06 17:15 | DRG 565 ==
LOC: ED 17:46 → 2N 22:48 → 2W 08-31 10:51

== ENCOUNTER 2023-03-31 17:21 | Inpatient (IN) ==
--- NOTE | 2023-03-31 17:52 | Emergency Department Note ---
Impression & Plan Acute alteration in mental status, Anemia, Acute hyperglycemia, Urinary tract infection, Acute lower GI bleeding ED Provider Note NAME: GLYNN DIAZ AGE: 77 SEX: F : 1945 ARRIVES VIA: Ambulance INFORMANT: Patient, ED PROVIDER(S): Lenin Parks DO CHIEF COMPLAINT: Altered mental status HPI: The patient is a 77-year-old female who presented to the emergency department for an evaluation of altered mental status. Reportedly the patient was at home with her significant other. There is a caregiver that normally helps manage the patient. She has a history of diabetes. The patient has not had her medications reportedly for quite some time although does not completely clear exactly how long. The patient himself does not give much history. She had some clotted blood in her nares. It is unclear if the patient fell. When asked the patient does admit that she fell. She denies having any fever. She denies having any cough or lower extremity swelling. ROS: See above HPI for pertinent positives & negatives. A total of 10 systems reviewed and were otherwise negative. PAST MEDICAL HISTORY: See Below PAST SURGICAL HISTORY: See Below FAMILY HISTORY: See Below SOCIAL HISTORY: See Below HOME MEDICATIONS: See Below ALLERGIES: See Below VITALS: See Below PHYSICAL EXAMINATION: GENERAL: The patient is awake and somewhat anxious appearing. She does not answer questions appropriately. EYES: The conjunctivae are clear. The pupils are round and reactive. EARS, NOSE, MOUTH AND THROAT: The nose is without any evidence of any deformity. Mucous membranes are dry. NECK: The neck is nontender and supple. RESPIRATORY: Tachypnea was noted. There is no abnormal breath sounds. CARDIOVASCULAR: Tachycardic and regular heart sounds were noted to auscultation. There is no definite murmur. GASTROINTESTINAL: The abdomen is soft. Abdomen is nontender. Rectal exam revealed brown stool which was strongly heme positive. MUSCULOSKELETAL/EXTREMITIES: There is no evidence of gross deformity full range of motion is noted in the hips and shoulders. SKIN: There is no obvious evidence of any rash. There are no petechiae, pallor or cyanosis noted. NEUROLOGIC: The patient is awake and answering questions. She is oriented to person but not place time or situation. MEDICAL DECISION MAKING: The patient is a 77-year-old female who presented to the emergency department for an evaluation of altered mental status. The patient has not been compliant with her outpatient medications. She was treated with IV fluids emergency department. She was also treated with IV insulin. The patient was reevaluated multiple times. She was found have significant anemia. On physical exam her rectal exam revealed maroon stool which was strongly heme positive. I discussed the patient's condition with her as well as her family members. Her condition did slowly improve while she was in the emergency department. She was treated with IV antibiotics as well as further IV hydration. I discussed her condition with the on-call [facility]. They have agreed to evaluate the patient in the emergency department for further management and disposition. Triage Nursing notes reviewed. Prior medical records reviewed Vital Signs: reviewed and remarkable for tachycardia and tachypnea. Differential diagnosis: Infection, hypoglycemia, electrolyte abnormalities, overdose, toxicologic, cardiac sources, intracerebral event, neurologic, trauma, as well as other pathologies. ER treatment provided: See below Diagnostics interpreted by me: ECG: EKG was obtained in the emergency department. My interpretation is normal sinus rhythm at 99 bpm. There is no ectopy. Poor baseline was noted. Inferior Q waves were appreciated. This was compared to a tracing from August 31, 2019. No changes were noted. Cardiac Monitoring: An order was placed for continuous cardiac monitoring. The monitor shows a rate of 96 bpm with sinus rhythm. Laboratory studies: As stated above and show below. Imaging studies: See below. Radiographic imaging was reviewed by myself Consultation(s): I discussed this case with Dr. Chavira who is on-call for the [facility] group. ED COURSE: Procedures: none Critical Care: I have personally spent greater than 35 minutes of critical care time in the dir ect management of this patient. This includes bedside care, interpretation of diagnostic studies, and testing, discussion with consultants, patient, and family members, and other required patient management activities. This 35 minutes is in excess of all separately billable procedures. Past Med/Surg History Medical History Anemia Asthma RARE RES. INH USE Bipolar 1 disorder (04/07/14) Cavernoma Cervical adenocarcinoma (11/04/17) "Postmenopausal vaginal bleeding Ultrasound revealing a large cervical mass Status post biopsy 11/04/2017 Invasive adenocarcinoma of the cervix Status post completion of definitive radiation and chemotherapy. Status post completion of radiation therapy March 19, 2018. She received 5200 cGy external beam treatment. She received 2350 cGy with HDR tandem and ovoid therapy." DM (diabetes mellitus) IDDM Dyslipidemia History of COVID-19 tested positive on a home test ~Beginning of September 2022. patient unsure of exact date. reports symptoms included: sore throat, cough and headache. resolved currently. History of GI bleed Hypertension Hypothyroidism Intracranial hemorrhage resolved> was from fall (2013) Ana (04/07/14) HX OF Memory changes r/t fall "long time ago,I don't know when it was". Alert and oriented, poor historian. Mood disorder Multiple rib fractures RESOLVED Poor historian Seizure disorder grand mal > last one > "years ago" Surgical History History of appendectomy History of bilateral tubal ligation History of cataract surgery bilateral History of colonoscopy History of esophagogastroduodenoscopy (EGD) History of open reduction and internal fixation (ORIF) procedure Left Femur ORIF with kody. History of repair of rotator cuff RCR Hx of cervical spine surgery pt denies -- states she hurt her neck during a fall "about 5 years ago". ROM wnl. Family History Other Family history non-contributory No family history of adverse response to anesthesia Social History Smoking Status: Never smoker Tobacco Type: Cigarettes Second Hand Exposure: No; Do You Dip or Chew Tobacco: No; Hx Alcohol Use: Yes Alcohol type: wine Hx Substance Use: Yes ("tried it and it didnt work for me") Last Used Substance Other:: 2019 (noted in blood work) Preferred Language: Wolof Communication Ability: Effective [place] Sawyer Required: No Beliefs That Will Affect Care: None Current Living Situation: Spouse Feels Safe at Home: Yes Assistive Devices: Glasses Allergies Allergies Allergy/AdvReac Type Severity Reaction Status Date / Time divalproex sodium Allergy Severe weakness, Verified 01/14/23 09:02 [From Depakote] ataxia, confusion lidocaine Allergy Severe edema face Verified 01/14/23 09:02 and lips aspirin Allergy Intermediate INTESTINAL Verified 01/14/23 09:02 BLEEDING AND HIVES magnesium citrate Allergy Intermediate HIVES AND Verified 01/14/23 09:02 SWELLING prednisone Allergy Intermediate HIVES; Verified 01/14/23 09:02 TREMORS simethicone Allergy Intermediate Hives/swell Verified 01/14/23 09:02 ing rosiglitazone AdvReac Severe Anemia/swelling/seizure/memory Verified 01/14/23 09:02 loss valproic acid AdvReac Severe weakness/at Verified 01/14/23 09:02 axia/confus ion citalopram AdvReac Intermediate tremors Verified 01/14/23 09:02 clonazepam AdvReac Intermediate Agitated Verified 01/14/23 09:02 metoclopramide AdvReac Intermediate Leg pains Verified 01/14/23 09:02 onion AdvReac Intermediate nausea/vomi Verified 01/14/23 09:02 ting simvastatin AdvReac Intermediate Leg pains Verified 01/14/23 09:02 sulfamethoxazole AdvReac Intermediate Nausea/vomi Verified 01/14/23 09:02 ting trimethoprim AdvReac Intermediate Nausea/vomi Verified 01/14/23 09:02 ting Home Meds Home Medications Medication Instructions Recorded Confirmed duloxetine 30 mg capsule,delayed 30 mg PO QAM 12/07/18 01/14/23 release ferrous sulfate 324 mg (65 mg 324 mg PO QAM 12/07/18 01/14/23 iron) tablet,delayed release levetiracetam 1,000 mg tablet 1,000 mg PO BID 12/07/18 01/14/23 (Keppra) levothyroxine 25 mcg tablet 25 mcg PO QAM 12/07/18 01/14/23 (Synthroid) loperamide 2 mg tablet 2 mg PO QID PRN Diarrhea 12/07/18 01/12/23 metformin 750 mg tablet,extended 750 mg PO BID 12/07/18 01/14/23 release 24 hr mirtazapine 30 mg tablet (Remeron) 30 mg PO HS 12/07/18 01/14/23 multivitamin 1 tab PO QAM 12/07/18 01/14/23 thiamine HCl (vitamin B1) 100 mg 100 mg PO QAM 12/07/18 01/14/23 tablet (Vitamin B-1) iron,carbonyl 65 mg-vitamin C 125 1 tab PO QAM 08/30/19 01/14/23 mg tablet,delayed release (Vitron-C) albuterol sulfate 90 mcg/actuation 2 puff inhalation QID PRN 08/31/19 01/12/23 aerosol inhaler Shortness Of Breath amlodipine 5 mg tablet (Norvasc) 5 mg PO QAM 09/02/21 01/14/23 gabapentin 100 mg capsule 100 mg PO TID 09/02/21 01/14/23 insulin glargine 100 unit/mL (3 64 unit subcut HS 09/02/21 01/14/23 mL) subcutaneous pen (Lantus Solostar U-100 Insulin) risperidone 0.5 mg tablet 0.5 mg PO HS 09/02/21 01/14/23 trazodone 100 mg tablet 100 mg PO HS 09/02/21 01/14/23 acetaminophen 325 mg tablet 325 mg PO QID PRN Pain 01/12/23 01/14/23 (Tylenol) candesartan 16 mg tablet 16 mg PO QAM 01/12/23 01/14/23 cyanocobalamin (vitamin B-12) 1,000 mcg IM MONTHLY 01/12/23 01/14/23 1,000 mcg/mL injection solution empagliflozin 10 mg tablet 10 mg PO QAM 01/12/23 01/14/23 (Jardiance) ezetimibe 10 mg tablet (Zetia) 10 mg PO QAM 01/12/23 01/14/23 latanoprost (PF) 0.005 % eye drops 1 drp ophthalmic (eye) HS 01/12/23 01/14/23 lithium carbonate 300 mg tablet 300 mg PO HS 01/12/23 01/14/23 Results & Data (ED) Vital Signs Vital Signs - 24 hr 03/31/23 17:40 03/31/23 17:29 03/31/23 17:30 Temperature 36.5 C Temperature Source Temporal Artery Scan Pulse Rate 96 H 99 H 99 H Pulse Rate from SpO2 Sensor 99 H Pulse Rhythm Regular Respiratory Rate 30 H 36 H Respiratory Effort / Characteristics Spontaneous Labored Short of Breath Respiratory Depth Shallow Blood Pressure 143/64 H Blood Pressure Mean 90 Pulse Oximetry 98 97 Oxygen Delivery Method Room Air Sepsis Recent Fever Within 48 Hours No Sepsis New/Unexplained Change in Mental Status No Sepsis Action Taken by Nursing No Action Required 03/31/23 18:00 03/31/23 18:30 03/31/23 18:37 Temperature Temperature Source Pulse Rate 99 H 96 H 96 H Pulse Rate from SpO2 Sensor 96 H Pulse Rhythm Respiratory Rate 36 H 36 H 35 H Respiratory Effort / Characteristics Respiratory Depth Blood Pressure Blood Pressure Mean Pulse Oximetry 95 Oxygen Delivery Method Sepsis Recent Fever Within 48 Hours Sepsis New/Unexplained Change in Mental Status Sepsis Action Taken by Nursing 03/31/23 18:37 Temperature Temperature Source Pulse Rate Pulse Rate from SpO2 Sensor Pulse Rhythm Respiratory Rate Respiratory Effort / Characteristics Respiratory Depth Blood Pressure 131/61 Blood Pressure Mean 84 Pulse Oximetry Oxygen Delivery Method Sepsis Recent Fever Within 48 Hours Sepsis New/Unexplained Change in Mental Status Sepsis Action Taken by Prison Medications Current Medication List: was personally reviewed by me Laboratory Data Attestation: I reviewed the patient's lab results. 03/31/23 17:28 03/31/23 17:28 Lab Results 03/31/23 03/31/23 03/31/23 Range/Units 17:28 17:28 17:28 WBC 6.23 (4.8-10.8) K/ul RBC 2.62 L (4.20-5.40) M/uL Hgb 7.0 L (12.0-16.0) g/dl Hct 22.9 L (37.0-47.0) % MCV 87.4 (80.0-100.0) fL MCH 26.7 (25.0-34.0) pg MCHC 30.6 L (32.0-36.0) g/dL RDW Std Deviation 61.5 H (36.4-46.3) fL RDW Coeff of Lili 19.3 H (11.5-14.5) % Plt Count 160 (130-400) K/uL MPV 10.3 (9.4-12.4) fL Immature Gran % (Auto) 1.0 % Neut % (Auto) 84.7 % Lymph % (Auto) 4.7 % [place] % (Auto) 9.3 % Eos % (Auto) 0.0 % Baso % (Auto) 0.3 % Neut # (Auto) 5.28 (1.40-6.50) K/uL Lymph # (Auto) 0.29 L (1.2-3.4) K/uL [place] # (Auto) 0.58 (0.11-0.59) K/uL Eos # (Auto) 0.00 (0-0.50) K/uL Baso # (Auto) 0.02 (0-0.2) K/uL Immature Gran # (Auto) 0.06 (0.01-0.20) K/uL Absolute Nucleated RBC 0.02 (0-0.12) K/uL Nucleated RBC % (auto) 0.3 % Anisocytosis Present Tear Drop Cells 1+ Ovalocytes 1+ PT 12.0 (9.0-12.0) Seconds INR 1.1 (0.9-1.1) APTT 30.1 (21.0-31.0) Seconds PTT Ratio 1.1 VBG pH (7.36-7.41) VBG pCO2 (38-50) mmHg VBG pO2 mmHg VBG HCO3 mmol/L VBG O2 Saturation % VBG Base Excess mEq/L Sodium 122 L (136-145) mmol/L Potassium 4.2 (3.5-5.1) mmol/L Chloride 93 L (98-107) mmol/L Carbon Dioxide 16 L (21-32) mmol/L Anion Gap 13 H (3-11) BUN 29 H (6-23) mg/dl Creatinine 0.61 (0.6-1.2) mg/dl Est Cr Clr Drug Dosing Not Reportable Est GFR ( Amer) 102.1 ml/min Est GFR (Non-Af Amer) 88.1 ml/min BUN/Creatinine Ratio 47.5 H (10-20) Glucose 527 H* (70-99(Fasting)) mg/dl POC Glucose (70-99) mg/dl Lactate (0.4-2.0) mmol/L Calcium 8.4 L (8.6-10.3) mg/dl Magnesium 1.7 (1.7-2.4) mg/dl Total Bilirubin 0.6 (0.2-1.0) mg/dl AST 29 (13-39) U/L ALT 31 (7-52) U/L Alkaline Phosphatase 119 H (34-104) U/L Total Creatine Kinase 187 (26-192) U/L Troponin I High Sens 23.9 H (0-14) pg/ml Total Protein 5.9 L (6.0-8.3) gm/dl Albumin 3.3 L (3.4-5.0) gm/dl Globulin 2.6 (2.5-4.0) gm/dl Albumin/Globulin Ratio 1.3 (0.9-2) TSH (0.300-4.500) uIu/ml Urine Color Urine Appearance (Clear) Urine pH (4.5-7.5) Ur Specific [place] (1.000-1.030) Urine Protein (Negative) Urine Glucose (UA) (Negative) Urine Ketones (Negative) Urine Blood (Negative) Urine Nitrite (Negative) Urine Bilirubin (Negative) Urine Urobilinogen (Negative) Ur Leukocyte Esterase (Negative) Urine WBC (Auto) (0-5) /hpf Urine RBC (Auto) (0-4) /hpf U Hyaline Cast (Auto) (0-5) /lpf U Epithel Cells (Auto) (0-5) /lpf Urine Bacteria (Auto) (Negative) Urine Yeast (None Prsent) SARS-CoV-2, RNA, NAAT (NEGATIVE) 03/31/23 03/31/23 03/31/23 Range/Units 17:28 17:35 17:48 WBC (4.8-10.8) K/ul RBC (4.20-5.40) M/uL Hgb (12.0-16.0) g/dl Hct (37.0-47.0) % MCV (80.0-100.0) fL MCH (25.0-34.0) pg MCHC (32.0-36.0) g/dL RDW Std Deviation (36.4-46.3) fL RDW Coeff of Lili (11.5-14.5) % Plt Count (130-400) K/uL MPV (9.4-12.4) fL Immature Gran % (Auto) % Neut % (Auto) % Lymph % (Auto) % [place] % (Auto) % Eos % (Auto) % Baso % (Auto) % Neut # (Auto) (1.40-6.50) K/uL Lymph # (Auto) (1.2-3.4) K/uL [place] # (Auto) (0.11-0.59) K/uL Eos # (Auto) (0-0.50) K/uL Baso # (Auto) (0-0.2) K/uL Immature Gran # (Auto) (0.01-0.20) K/uL Absolute Nucleated RBC (0-0.12) K/uL Nucleated RBC % (auto) % Anisocytosis Tear Drop Cells Ovalocytes PT (9.0-12.0) Seconds INR (0.9-1.1) APTT (21.0-31.0) Seconds PTT Ratio VBG pH (7.36-7.41) VBG pCO2 (38-50) mmHg VBG pO2 mmHg VBG HCO3 mmol/L VBG O2 Saturation % VBG Base Excess mEq/L Sodium (136-145) mmol/L Potassium (3.5-5.1) mmol/L Chloride (98-107) mmol/L Carbon Dioxide (21-32) mmol/L Anion Gap (3-11) BUN (6-23) mg/dl Creatinine (0.6-1.2) mg/dl Est Cr Clr Drug Dosing Est GFR ( Amer) ml/min Est GFR (Non-Af Amer) ml/min BUN/Creatinine Ratio (10-20) Glucose (70-99(Fasting)) mg/dl POC Glucose 552 H* (70-99) mg/dl Lactate (0.4-2.0) mmol/L Calcium (8.6-10.3) mg/dl Magnesium (1.7-2.4) mg/dl Total Bilirubin (0.2-1.0) mg/dl AST (13-39) U/L ALT (7-52) U/L Alkaline Phosphatase (34-104) U/L Total Creatine Kinase (26-192) U/L Troponin I High Sens (0-14) pg/ml Total Protein (6.0-8.3) gm/dl Albumin (3.4-5.0) gm/dl Globulin (2.5-4.0) gm/dl Albumin/Globulin Ratio (0.9-2) TSH 3.127 (0.300-4.500) uIu/ml Urine Color Urine Appearance (Clear) Urine pH (4.5-7.5) Ur Specific [place] (1.000-1.030) Urine Protein (Negative) Urine Glucose (UA) (Negative) Urine Ketones (Negative) Urine Blood (Negative) Urine Nitrite (Negative) Urine Bilirubin (Negative) Urine Urobilinogen (Negative) Ur Leukocyte Esterase (Negative) Urine WBC (Auto) (0-5) /hpf Urine RBC (Auto) (0-4) /hpf U Hyaline Cast (Auto) (0-5) /lpf U Epithel Cells (Auto) (0-5) /lpf Urine Bacteria (Auto) (Negative) Urine Yeast (None Prsent) SARS-CoV-2, RNA, NAAT NEGATIVE (NEGATIVE) 03/31/23 03/31/23 03/31/23 Range/Units 17:59 18:05 18:05 WBC (4.8-10.8) K/ul RBC (4.20-5.40) M/uL Hgb (12.0-16.0) g/dl Hct (37.0-47.0) % MCV (80.0-100.0) fL MCH (25.0-34.0) pg MCHC (32.0-36.0) g/dL RDW Std Deviation (36.4-46.3) fL RDW Coeff of Lili (11.5-14.5) % Plt Count (130-400) K/uL MPV (9.4-12.4) fL Immature Gran % (Auto) % Neut % (Auto) % Lymph % (Auto) % [place] % (Auto) % Eos % (Auto) % Baso % (Auto) % Neut # (Auto) (1.40-6.50) K/uL Lymph # (Auto) (1.2-3.4) K/uL [place] # (Auto) (0.11-0.59) K/uL Eos # (Auto) (0-0.50) K/uL Baso # (Auto) (0-0.2) K/uL Immature Gran # (Auto) (0.01-0.20) K/uL Absolute Nucleated RBC (0-0.12) K/uL Nucleated RBC % (auto) % Anisocytosis Tear Drop Cells Ovalocytes PT (9.0-12.0) Seconds INR (0.9-1.1) APTT (21.0-31.0) Seconds PTT Ratio VBG pH 7.41 (7.36-7.41) VBG pCO2 27 L (38-50) mmHg VBG pO2 48 mmHg VBG HCO3 17 mmol/L VBG O2 Saturation 79.3 % VBG Base Excess -6.0 mEq/L Sodium (136-145) mmol/L Potassium (3.5-5.1) mmol/L Chloride (98-107) mmol/L Carbon Dioxide (21-32) mmol/L Anion Gap (3-11) BUN (6-23) mg/dl Creatinine (0.6-1.2) mg/dl Est Cr Clr Drug Dosing Est GFR ( Amer) ml/min Est GFR (Non-Af Amer) ml/min BUN/Creatinine Ratio (10-20) Glucose (70-99(Fasting)) mg/dl POC Glucose (70-99) mg/dl Lactate 1.1 (0.4-2.0) mmol/L Calcium (8.6-10.3) mg/dl Magnesium (1.7-2.4) mg/dl Total Bilirubin (0.2-1.0) mg/dl AST (13-39) U/L ALT (7-52) U/L Alkaline Phosphatase (34-104) U/L Total Creatine Kinase (26-192) U/L Troponin I High Sens (0-14) pg/ml Total Protein (6.0-8.3) gm/dl Albumin (3.4-5.0) gm/dl Globulin (2.5-4.0) gm/dl Albumin/Globulin Ratio (0.9-2) TSH (0.300-4.500) uIu/ml Urine Color Yellow Urine Appearance Clear (Clear) Urine pH 5.5 (4.5-7.5) Ur Specific [place] 1.024 (1.000-1.030) Urine Protein 1+ H (Negative) Urine Glucose (UA) 3+ H (Negative) Urine Ketones 2+ H (Negative) Urine Blood 1+ H (Negative) Urine Nitrite Negative (Negative) Urine Bilirubin Negative (Negative) Urine Urobilinogen Negative (Negative) Ur Leukocyte Esterase 1+ H (Negative) Urine WBC (Auto) 10-30 H (0-5) /hpf Urine RBC (Auto) 0-4 (0-4) /hpf U Hyaline Cast (Auto) 1-5 (0-5) /lpf U Epithel Cells (Auto) 10-20 H (0-5) /lpf Urine Bacteria (Auto) 2+ H (Negative) Urine Yeast Present A (None Prsent) SARS-CoV-2, RNA, NAAT (NEGATIVE) 03/31/23 Range/Units 20:46 WBC (4.8-10.8) K/ul RBC (4.20-5.40) M/uL Hgb (12.0-16.0) g/dl Hct (37.0-47.0) % MCV (80.0-100.0) fL MCH (25.0-34.0) pg MCHC (32.0-36.0) g/dL RDW Std Deviation (36.4-46.3) fL RDW Coeff of Lili (11.5-14.5) % Plt Count (130-400) K/uL MPV (9.4-12.4) fL Immature Gran % (Auto) % Neut % (Auto) % Lymph % (Auto) % [place] % (Auto) % Eos % (Auto) % Baso % (Auto) % Neut # (Auto) (1.40-6.50) K/uL Lymph # (Auto) (1.2-3.4) K/uL [place] # (Auto) (0.11-0.59) K/uL Eos # (Auto) (0-0.50) K/uL Baso # (Auto) (0-0.2) K/uL Immature Gran # (Auto) (0.01-0.20) K/uL Absolute Nucleated RBC (0-0.12) K/uL Nucleated RBC % (auto) % Anisocytosis Tear Drop Cells Ovalocytes PT (9.0-12.0) Seconds INR (0.9-1.1) APTT (21.0-31.0) Seconds PTT Ratio VBG pH (7.36-7.41) VBG pCO2 (38-50) mmHg VBG pO2 mmHg VBG HCO3 mmol/L VBG O2 Saturation % VBG Base Excess mEq/L Sodium (136-145) mmol/L Potassium (3.5-5.1) mmol/L Chloride (98-107) mmol/L Carbon Dioxide (21-32) mmol/L Anion Gap (3-11) BUN (6-23) mg/dl Creatinine (0.6-1.2) mg/dl Est Cr Clr Drug Dosing Est GFR ( Amer) ml/min Est GFR (Non-Af Amer) ml/min BUN/Creatinine Ratio (10-20) Glucose (70-99(Fasting)) mg/dl POC Glucose 400 H* (70-99) mg/dl Lactate (0.4-2.0) mmol/L Calcium (8.6-10.3) mg/dl Magnesium (1.7-2.4) mg/dl Total Bilirubin (0.2-1.0) mg/dl AST (13-39) U/L ALT (7-52) U/L Alkaline Phosphatase (34-104) U/L Total Creatine Kinase (26-192) U/L Troponin I High Sens (0-14) pg/ml Total Protein (6.0-8.3) gm/dl Albumin (3.4-5.0) gm/dl Globulin (2.5-4.0) gm/dl Albumin/Globulin Ratio (0.9-2) TSH (0.300-4.500) uIu/ml Urine Color Urine Appearance (Clear) Urine pH (4.5-7.5) Ur Specific [place] (1.000-1.030) Urine Protein (Negative) Urine Glucose (UA) (Negative) Urine Ketones (Negative) Urine Blood (Negative) Urine Nitrite (Negative) Urine Bilirubin (Negative) Urine Urobilinogen (Negative) Ur Leukocyte Esterase (Negative) Urine WBC (Auto) (0-5) /hpf Urine RBC (Auto) (0-4) /hpf U Hyaline Cast (Auto) (0-5) /lpf U Epithel Cells (Auto) (0-5) /lpf Urine Bacteria (Auto) (Negative) Urine Yeast (None Prsent) SARS-CoV-2, RNA, NAAT (NEGATIVE) Administered Medications Discontinued Medications Sodium Chloride (Nss 1000ml) 1,000 mls @ 999 mls/hr IV .Q1H1M VALERIE Stop: 03/31/23 19:00 Last Infusion: 03/31/23 20:03 Dose: 0 mls/hr Documented By: Admin: 03/31/23 18:37 Dose: 999 mls/hr Documented By: ANAHI Sodium Chloride (Nss 1000ml) 1,000 mls @ 999 mls/hr IV .Q1H1M ONE Stop: 03/31/23 20:15 Last Infusion: 03/31/23 20:51 Dose: 0 mls/hr Documented By: Admin: 03/31/23 19:45 Dose: 999 mls/hr Documented By: FINN Ceftriaxone Sodium (Rocephin) 2,000 mg in 70 mls @ 140 mls/hr IV NOW STA Stop: 03/31/23 19:46 Last Infusion: 03/31/23 20:20 Dose: 0 mls/hr Documented By: Admin: 03/31/23 19:46 Dose: 140 mls/hr Documented By: FINN Insulin Glargine (Lantus Per Unit Charge) 30 units SQ NOW STA Stop: 03/31/23 20:17 Last Admin: 03/31/23 21:02 Dose: 30 units Documented By: FINN Co-signed By: CHRISTIANA Insulin Human Regular (Novolin-R Insulin Per Unit Charge) 10 units IV NOW STA Stop: 03/31/23 19:16 Last Admin: 03/31/23 19:40 Dose: 10 units Documented By: FINN Co-signed By: CHRISTIANA Imaging Data Attestation: I personally reviewed and interpreted this imaging study as follows: My Impression: CT of the head was obtained in the emergency department. My interpretation is no intracranial hemorrhage, no mass effect, final report below. Radiologist's Impression: Cervical Spine CT 03/31/23 17:46 Exam(s): CT C SPINE EXAM: CT Cervical Spine Without Intravenous Contrast CLINICAL HISTORY: Reason for exam: ams. TECHNIQUE: Axial computed tomography images of the cervical spine without intravenous contrast. CTDI is 50.67 mGy and DLP is 1725.15 mGy-cm. Automated exposure control was utilized for the study. A dose lowering technique was utilized adhering to the principles of ALARA. COMPARISON: CT C-spine on 08/30/2019 FINDINGS: Exam is limited by motion artifact. Bones: No acute fracture or bony lesion. Stable chronic endplate depressions of C7, T1, and T2. Disc spaces: No subluxation. Degenerative changes of the spine, most prominently at C5-6. Soft tissues: Normal. Other: Atherosclerotic changes of the vasculature.. IMPRESSION: No acute traumatic abnormality. Electronically signed by: Dipti Murguia M.D. 03/31/23 19:53 PM Chest X-Ray 03/31/23 17:46 SINGLE VIEW CHEST CLINICAL HISTORY: Generalized weakness. FINDINGS: An AP, portable, upright chest radiograph is compared to study dated 08/30/2019 and correlated with chest CT dated 08/31/2019. The examination is degraded by portable technique and patient rotation. A left subclavian central venous infusion port is unchanged in position. The heart is mildly enlarged but nothing atherosclerotic calcification of the thoracic aorta. The pulmonary vasc ulature is noncongested. Chronic interstitial thickening similar to previous. The lungs and pleural spaces are clear noting bibasilar scarring/atelectasis. No pneumothorax is seen. The skeletal structures are osteopenic. There are chronic/healed bilateral rib fractures. Postsurgical change is noted in the right humeral head. IMPRESSION: Mild cardiomegaly with no acute cardiopulmonary abnormality identified. ACT 112: Negative or not required by law. Electronically signed by: Marc Hastings M.D. 03/31/2023 7:[address] 03/31/23 17:46 Exam(s): CT HEAD Without Contrast EXAM: CT Head Without Intravenous Contrast CLINICAL HISTORY: Reason for exam: ams. TECHNIQUE: Axial computed tomography images of the head/brain without intravenous contrast. CTDI is 50.67 mGy and DLP is 1725.15 mGy-cm. Automated exposure control was utilized for the study. A dose lowering technique was utilized adhering to the principles of ALARA. COMPARISON: CT head on 08/30/2019 FINDINGS: Brain: No acute infarct or hemorrhage identified. No extra-axial fluid collection. No mass effect or midline shift. Scattered areas of hypoattenuation in the supratentorial white matter likely represent chronic small vessel ischemic changes. Similar calcifications in the right caudate and basal ganglia. Ventricles and sulci: Prominence of the ventricles and sulci is likely secondary to cerebral volume loss. Cavum septum pellucidum. Bones: Normal. No bony lesion or acute fracture. Subcutaneous tissues: Normal. Sinuses: Normal. No air-fluid levels or mucosal thickening. Mastoid air cells: Normal. Orbits: Bilateral lens implants. Other: Atherosclerotic calcifications in the intracranial vasculature. IMPRESSION: 1. No acute intracranial abnormality. 2. Chronic small vessel ischemic changes and cerebral volume loss. Electronically signed by: Dipti Murguia M.D. 03/31/23 19:41 PM Discharge Plan Visit Data Chief Complaint: Altered Mental Status Stated Complaint: altered mental status, hyperglycemia ED Provider: Lenin Parks Discharge Problem: Acute alteration in mental status, Anemia, Acute hyperglycemia, Urinary tract infection, Acute lower GI bleeding Patient Disposition: Being Evaluated by Hospitalist Forms Stand Alone Forms: My [facility] Prescriptions Prescriptions: No Action multivitamin Tablet 1 tab PO QAM loperamide 2 mg Tablet 2 mg PO QID PRN (Reason: Diarrhea) thiamine HCl (vitamin B1) [Vitamin B-1] 100 mg tablet 100 mg PO QAM levothyroxine [Synthroid] 25 mcg Tablet 25 mcg PO QAM mirtazapine [Remeron] 30 mg tablet 30 mg PO HS metformin 750 mg Tablet Extended Release 24 Hr 750 mg PO BID duloxetine 30 mg Capsule,Delayed Release(Dr/Ec) 30 mg PO QAM levetiracetam [Keppra] 1,000 mg Tablet 1,000 mg PO BID ferrous sulfate 324 mg (65 mg iron) tablet,delayed release (DR/EC) 324 mg PO QAM Vitron-C 65 mg iron- 125 mg Tablet,Delayed Release (Dr/Ec) 1 tab PO QAM albuterol sulfate 90 mcg/actuation Hfa Aerosol Inhaler 2 puff INHALATION QID PRN (Reason: Shortness Of Breath) amlodipine [Norvasc] 5 mg Tablet 5 mg PO QAM trazodone 100 mg Tablet 100 mg PO HS gabapentin 100 mg Capsule 100 mg PO TID risperidone 0.5 mg Tablet 0.5 mg PO HS insulin glargine [Lantus Solostar U-100 Insulin] 100 unit/mL (3 mL) Insulin Pen 64 unit SUBCUT HS acetaminophen [Tylenol] 325 mg Tablet 325 mg PO QID PRN (Reason: Pain) cyanocobalamin (vitamin B-12) 1,000 mcg/mL Solution 1,000 mcg IM MONTHLY candesartan 16 mg Tablet 16 mg PO QAM lithium carbonate 300 mg Tablet 300 mg PO HS ezetimibe [Zetia] 10 mg Tablet 10 mg PO QAM Jardiance 10 mg Tablet 10 mg PO QAM latanoprost (PF) 0.005 % Drops 1 drp OPHTHALMIC (EYE) HS Referrals Referrals: Abhinav Sebastian MD [Primary Care Provider] -
[2023-03-31] MEDS ORDERED: SODIUM CHLORIDE 0.9% 1000ML 1,000 ML IV SCH (18:00)
[2023-03-31 18:29] LABS: Basophils # (auto) 0.02 K/uL (0-0.2); Basophils % (auto) 0.3 %; Hematocrit (blood only) 22.9 % (37.0-47.0); Immature Granulocytes # (auto) 0.06 K/uL (0.01-0.20); Lymphocytes # (auto) 0.29 K/uL (1.2-3.4); Lymphocytes % (auto) 4.7 %; Mean Corpuscular Hemoglobin 26.7 pg (25.0-34.0); Mean Corpuscular Hgb Conc 30.6 g/dL (32.0-36.0); Mean Corpuscular Volume 87.4 fL (80.0-100.0); Mean Platelet Volume 10.3 fL (9.4-12.4); Monocytes # (auto) 0.58 K/uL (0.11-0.59); Monocytes % (auto) 9.3 %; Neutrophils # (auto) 5.28 K/uL (1.40-6.50); Neutrophils % (auto) 84.7 %; Nucleated RBC # (auto) 0.02 K/uL (0-0.12); Nucleated RBC % (auto) 0.3 %; Platelet Count 160 K/uL (130-400); RDW Coefficient of Variation 19.3 % (11.5-14.5); RDW Standard Deviation 61.5 fL (36.4-46.3); Red Blood Count 2.62 M/uL (4.20-5.40); White Blood Count 6.23 K/ul (4.8-10.8)
[2023-03-31 18:33] LABS: HCO3 VBG 17 mmol/L; Oxygen Saturation VBG 79.3 %; PCO2 VBG 27 mmHg (38-50); PO2 VBG 48 mmHg; pH VBG 7.41 (7.36-7.41)
[2023-03-31 18:50] LABS: Alanine Aminotransferase 31 U/L (7-52); Albumin Globulin Ratio 1.3 (0.9-2); Albumin Level 3.3 gm/dl (3.4-5.0); Alkaline Phosphatase 119 U/L (34-104); Anion Gap 13 (3-11); Aspartate Aminotransferase 29 U/L (13-39); BUN Creatinine Ratio 47.5 (10-20); Bilirubin,Total 0.6 mg/dl (0.2-1.0); Blood Urea Nitrogen 29 mg/dl (6-23); Calcium 8.4 mg/dl (8.6-10.3); Carbon Dioxide 16 mmol/L (21-32); Chloride 93 mmol/L (98-107); Creatine Kinase 187 U/L (26-192); Est GFR (African American) 102.1 ml/min; Est GFR (Non-African American) 88.1 ml/min; Globulin 2.6 gm/dl (2.5-4.0); Glucose 527 mg/dl (70-99(Fasting)); Magnesium 1.7 mg/dl (1.7-2.4); Potassium 4.2 mmol/L (3.5-5.1); Sodium 122 mmol/L (136-145); Total Protein 5.9 gm/dl (6.0-8.3); Troponin I High Sensitivity 23.9 pg/ml (0-14)
[2023-03-31 18:56] LABS: INR 1.1 (0.9-1.1); Partial Thromboplastin Ratio 1.1; Partial Thromboplastin Time 30.1 Seconds (21.0-31.0)
[2023-03-31 18:57] LABS: Appearance Urine Clear (Clear); Bacteria Urine Automated 2+ (Negative); Bilirubin Urine Negative (Negative); Blood Urine 1+ (Negative); Color Urine Yellow; Glucose Urine UA 3+ (Negative); Ketones Urine 2+ (Negative); Leukocyte Esterase Urine 1+ (Negative); Nitrite Urine Negative (Negative); Protein Urine 1+ (Negative); Specific Gravity Urine 1.024 (1.000-1.030); Urobilinogen Urine Negative (Negative); pH Urine 5.5 (4.5-7.5)
[2023-03-31 19:00] LABS: Anisocytosis Present; Ovalocytes 1+; Tear Drop Cells 1+
[2023-03-31 19:02] LABS: RBC Urine Automated 0-4 /hpf (0-4)
--- NOTE | 2023-03-31 19:06 | XRay Report ---
SINGLE VIEW CHEST CLINICAL HISTORY: Generalized weakness. FINDINGS: An AP, portable, upright chest radiograph is compared to study dated 08/30/2019 and correlat ed with chest CT dated 08/31/2019. The examination is degraded by portable technique and patient rotat ion. A left subclavian central venous infusion port is unchanged in position. The heart is mildly en larged but nothing atherosclerotic calcification of the thoracic aorta. The pulmonary vasculature is noncongested. Chronic interstitial thickening similar to previous. The lungs and pleural spaces are c lear noting bibasilar scarring/atelectasis. No pneumothorax is seen. The skeletal structures are oste openic. There are chronic/healed bilateral rib fractures. Postsurgical change is noted in the right h umeral head. IMPRESSION: Mild cardiomegaly with no acute cardiopulmonary abnormality identified. ACT 112: Negative or not required by law. Electronically signed by: Marc Hastings M.D. 03/31/2023 7:04 PM
[2023-03-31] MEDS ORDERED: SODIUM CHLORIDE 0.9% 1000ML 1,000 ML IV ONE (19:15)
[2023-03-31] MEDS ORDERED: NovoLIN-R INSULIN PER UNIT CHARGE IV STA (19:15)
[2023-03-31] MEDS ORDERED: cefTRIAXone SODIUM 2,000 MG/70 ML BAG IV STA (19:17)
--- NOTE | 2023-03-31 19:41 | CT Scan Report ---
Exam(s): CT HEAD Without Contrast EXAM: CT Head Without Intravenous Contrast CLINICAL HISTORY: Reason for exam: ams. TECHNIQUE: Axial computed tomography images of the head/brain without intravenous contrast. CTDI is 50.67 mGy and DLP is 1725.15 mGy-cm. Automated exposure control was utilized for the study. A dose lowering technique was utilized adhering to the principles of ALARA. COMPARISON: CT head on 08/30/2019 FINDINGS: Brain: No acute infarct or hemorrhage identified. No extra-axial fluid collection. No mass effect or midline shift. Scattered areas of hypoattenuation in the supratentorial white matter likely represent chronic small vessel ischemic changes. Similar calcifications in the right caudate and basal ganglia. Ventricles and sulci: Prominence of the ventricles and sulci is likely secondary to cerebral volume loss. Cavum septum pellucidum. Bones: Normal. No bony lesion or acute fracture. Subcutaneous tissues: Normal. Sinuses: Normal. No air-fluid levels or mucosal thickening. Mastoid air cells: Normal. Orbits: Bilateral lens implants. Other: Atherosclerotic calcifications in the intracranial vasculature. IMPRESSION: 1. No acute intracranial abnormality. 2. Chronic small vessel ischemic changes and cerebral volume loss. Electronically signed by: Dipti Murguia M.D. 03/31/23 19:41 PM
--- NOTE | 2023-03-31 19:54 | CT Scan Report ---
Exam(s): CT C SPINE EXAM: CT Cervical Spine Without Intravenous Contrast CLINICAL HISTORY: Reason for exam: ams. TECHNIQUE: Axial computed tomography images of the cervical spine without intravenous contrast. CTDI is 50.67 mGy and DLP is 1725.15 mGy-cm. Automated exposure control was utilized for the study. A dose lowering technique was utilized adhering to the principles of ALARA. COMPARISON: CT C-spine on 08/30/2019 FINDINGS: Exam is limited by motion artifact. Bones: No acute fracture or bony lesion. Stable chronic endplate depressions of C7, T1, and T2. Disc spaces: No subluxation. Degenerative changes of the spine, most prominently at C5-6. Soft tissues: Normal. Other: Atherosclerotic changes of the vasculature.. IMPRESSION: No acute traumatic abnormality. Electronically signed by: Dipti Murguia M.D. 03/31/23 19:53 PM
[2023-03-31] MEDS ORDERED: LANTUS PER UNIT CHARGE SQ STA (20:16)
[2023-03-31 22:02] LABS: Reticulocyte % 4.6 % (0.5-2.0); Reticulocytes # 0.12 10^6/uL (0.02-0.10)
[2023-03-31 22:06] LABS: Anion Gap 5 (3-11); BUN Creatinine Ratio 41.7 (10-20); Blood Urea Nitrogen 25 mg/dl (6-23); Calcium 8.1 mg/dl (8.6-10.3); Carbon Dioxide 20 mmol/L (21-32); Chloride 102 mmol/L (98-107); Est GFR (African American) 102.6 ml/min; Est GFR (Non-African American) 88.5 ml/min; Glucose 347 mg/dl (70-99(Fasting)); Iron < 10 mcg/dl (35-150); Potassium 4.3 mmol/L (3.5-5.1); Sodium 127 mmol/L (136-145); Transferrin 209 mg/dl (200-360)
[2023-03-31 22:11] LABS: Ferritin 79.6 ng/ml (8-388)
[2023-04-01] MEDS ORDERED: CEFEPIME 2,000 MG/20 ML VIAL IV STA (00:04)
--- NOTE | 2023-04-01 00:17 | History & Physical Report ---
Date of Service April 01, 2023 Assessment & Plan (1) Encephalopathy acute: Plan: Multifactorial: Hyperglycemic crisis, history DM 2 insulin requiring, reasonable control as of recent hemoglobin A1c of 7.2 every 2022 Complicated UTI, possible sepsis Hyponatremia (corrected serum sodium of 129 for serum glucose of 527) Home neuropsychotropic meds contributory, hx ADD/bipolar disorder/OCD as per records Acute on chronic anemia secondary to painless LGIB hx colonic angiectasia, hemorrhoids, diverticulosis, radiation proctitis as per records ro infectious colitis given sepsis criteria hypertension, BP slightly elevated history of seizure disorder as per records, history of traumatic SAH hx cirrhosis, no overt decompensation history of hypothyroidism, euthyroid as of today's TSH COPD, lung status at baseline, remote tobacco abuse, hx cervical cancer status post chemoradiation Possible functional disability Medical telemetry Basal bolus insulin, ISS BG goal 1 10-1 40, carb count coverage, update hemoglobin A1c CS, Cefepime Careful correction of sodium, hyponatremia work-up, recheck serum sodium after initial fluid boluses administered at the ER May need Nephrology input Stool CS, C. difficile Clear liquid diet for now CT abdomen pelvis Re: L GIB, sepsis Follow H&H, transfuse PRBC if hemoglobin less than 7 and or for symptomatic anemia Hold gabapentin, Remeron, trazodone until mentation back to baseline PT OT eval once medically stable DVT prophylaxis. SCDs RE recurrent GI bleed Full code Patient's family requesting updates from providers. Ms. Bessie Ramsey (daughter), contact #[phone]. Mr. Antonio Rowland () , contact #[phone]. Text document was generated using [employer] voice recognition software. It may contain grammatical or spelling errors. Kindly contact undersigned for clarification of any documentation item in question. History of Present Illness Chief Complaint: Altered mental status as per records I am okay as per patient Primary Care Provider: Abhinav Sebastian MD History obtained from patient, family, and records. Limited history from patient secondary to disorientation. Medical history significant for hypertension, DM2 insulin requiring, history of seizure disorder as per records, history of traumatic SAH, history of hypothyroidism, COPD, remote tobacco abuse, hx cervical cancer status post chemoradiation, cirrhosis, hx of recurrent GI bleed (gastric ulcer, AVMS, colonic angiectasia, hemorrhoids, diverticulosis, history radiation proctitis as per records), ADD/bipolar disorder/OCD as per records, chronic anemia (baseline hemoglobin of 9 January 2023). Last confinement 2018 for her acute cervical spine fracture secondary to unwitnessed fall. No acute surgical intervention. Patient noted to be increasingly confused at home over the last few days. Patient claims to be compliant with home medications. Patient denies headache, chest pain, SOB, diarrhea, dysuria symptoms. Shaking spell noted at home 4 days ago. Blood sugar noted to be 400-500s. Outpatient provider recommended extra tablet of Jardiance. Patient brought to ER for worsening symptoms. Blood sugar noted to be 500s at the ER. Bloody stools noted at the ER. IV insulin and ceftriaxone administered at the ER. MEDICAL HISTORY: As above. 2022 colonoscopy showed localized angioectasias ascending and transverse colon, rectum, sigmoid diverticulosis 2022 EGD showed mild portal hypertensive gastropathy. No varices. SURGICAL HISTORY: Appendectomy, shoulder surgery, catheter placement, dental surgery, BTL, femoral surgery, shoulder surgery, gynecologic procedures FAMILY HISTORY: heart disease. PERSONAL AND SOCIAL HISTORY:Past tobacco abuse, occasional EtOH intake denies abuse. Lives with her , family business. Allergies Allergy/AdvReac Type Severity Reaction Status Date / Time divalproex sodium Allergy Severe weakness, Verified 01/14/23 09:02 [From Depakote] ataxia, confusion lidocaine Allergy Severe edema face Verified 01/14/23 09:02 and lips aspirin Allergy Intermediate INTESTINAL Verified 01/14/23 09:02 BLEEDING AND HIVES magnesium citrate Allergy Intermediate HIVES AND Verified 01/14/23 09:02 SWELLING prednisone Allergy Intermediate HIVES; Verified 01/14/23 09:02 TREMORS simethicone Allergy Intermediate Hives/swell Verified 01/14/23 09:02 ing rosiglitazone AdvReac Severe Anemia/swelling/seizure/memory Verified 01/14/23 09:02 loss valproic acid AdvReac Severe weakness/at Verified 01/14/23 09:02 axia/confus ion citalopram AdvReac Intermediate tremors Verified 01/14/23 09:02 clonazepam AdvReac Intermediate Agitated Verified 01/14/23 09:02 metoclopramide AdvReac Intermediate Leg pains Verified 01/14/23 09:02 onion AdvReac Intermediate nausea/vomi Verified 01/14/23 09:02 ting simvastatin AdvReac Intermediate Leg pains Verified 01/14/23 09:02 sulfamethoxazole AdvReac Intermediate Nausea/vomi Verified 01/14/23 09:02 ting trimethoprim AdvReac Intermediate Nausea/vomi Verified 01/14/23 09:02 ting Home Medications Medication Instructions Recorded Confirmed Type levetiracetam 1,000 mg tablet 1,000 mg PO AMHS 12/07/18 03/31/23 History (Keppra) levothyroxine 25 mcg tablet See Rx Instructions .Route .COMPLEX 12/07/18 03/31/23 History (Synthroid) loperamide 2 mg tablet 2 mg PO QID PRN Diarrhea 12/07/18 03/31/23 History metformin 750 mg tablet,extended 1,500 mg PO QAM 12/07/18 03/31/23 History release 24 hr mirtazapine 30 mg tablet (Remeron) 30 mg PO HS 12/07/18 03/31/23 History multivitamin 1 tab PO QAM 12/07/18 03/31/23 History thiamine HCl (vitamin B1) 100 mg 100 mg PO QAM 12/07/18 03/31/23 History tablet (Vitamin B-1) iron,carbonyl 65 mg-vitamin C 125 1 tab PO QAM 08/30/19 03/31/23 History mg tablet,delayed release (Vitron-C) albuterol sulfate 90 mcg/actuation 2 puff inhalation Q6 PRN Wheezing 08/31/19 03/31/23 History aerosol inhaler gabapentin 100 mg capsule 100 mg PO TID 09/02/21 03/31/23 History insulin glargine 100 unit/mL (3 54 unit subcut HS 09/02/21 03/31/23 History mL) subcutaneous pen (Lantus Solostar U-100 Insulin) trazodone 100 mg tablet 100 mg PO HS 09/02/21 03/31/23 History acetaminophen 325 mg tablet 325 mg PO Q6 PRN Pain 01/12/23 03/31/23 History (Tylenol) candesartan 16 mg tablet 16 mg PO QAM 01/12/23 03/31/23 History cyanocobalamin (vitamin B-12) 1,000 mcg IM MONTHLY 01/12/23 03/31/23 History 1,000 mcg/mL injection solution empagliflozin 10 mg tablet 10 mg PO QAM 01/12/23 03/31/23 History (Jardiance) ezetimibe 10 mg tablet (Zetia) 10 mg PO QAM 01/12/23 03/31/23 History latanoprost (PF) 0.005 % eye drops 1 drp ophthalmic (eye) HS 01/12/23 03/31/23 History lithium carbonate 300 mg tablet 300 mg PO HS 01/12/23 03/31/23 History aripiprazole 5 mg tablet 5 mg PO QAM 03/31/23 03/31/23 History duloxetine 60 mg capsule,delayed 60 mg PO UD 03/31/23 03/31/23 History release risperidone 1 mg tablet (Risperdal) See Rx Instructions .Route .COMPLEX 03/31/23 03/31/23 History Past Med/Surg History Medical History Anemia Asthma RARE RES. INH USE Bipolar 1 disorder (04/07/14) Cavernoma Cervical adenocarcinoma (11/04/17) "Postmenopausal vaginal bleeding Ultrasound revealing a large cervical mass Status post biopsy 11/04/2017 Invasive adenocarcinoma of the cervix Status post completion of definitive radiation and chemotherapy. Status post completion of radiation therapy March 19, 2018. She received 5200 cGy external beam treatment. She received 2350 cGy with HDR tandem and ovoid therapy." DM (diabetes mellitus) IDDM Dyslipidemia History of COVID-19 tested positive on a home test ~Beginning of September 2022. patient unsure of exact date. reports symptoms included: sore throat, cough and headache. resolved currently. History of GI bleed Hypertension Hypothyroidism Intracranial hemorrhage resolved> was from fall (2013) Ana (04/07/14) HX OF Memory changes r/t fall "long time ago,I don't know when it was". Alert and oriented, poor historian. Mood disorder Multiple rib fractures RESOLVED Poor historian Seizure disorder grand mal > last one > "years ago" Surgical History History of appendectomy History of bilateral tubal ligation History of cataract surgery bilateral History of colonoscopy History of esophagogastroduodenoscopy (EGD) History of open reduction and internal fixation (ORIF) procedure Left Femur ORIF with kody. History of repair of rotator cuff RCR Hx of cervical spine surgery pt denies -- states she hurt her neck during a fall "about 5 years ago". ROM wnl. Family History Other Family history non-contributory No family history of adverse response to anesthesia Social History Smoking Status: Never smoker Tobacco Type: Cigarettes Second Hand Exposure: No; Do You Dip or Chew Tobacco: No; Preferred Language: Romanian Communication Ability: Effective Machinist Required: No Beliefs That Will Affect Care: None Current Living Situation: Spouse Feels Safe at Home: Yes Assistive Devices: Glasses Review of Systems Review of Systems: Could not be reliably obtained secondary to disorientation Physical Exam Physical Exam: GENERAL: Disoriented, slightly hard of hearing, no respiratory distress SKIN: Pallor, warm HEENT: pale palpebral conjunctivae, no ptosis, dry buccal mucosa NECK : Supple, no tenderness CHEST : Decreased breath sounds, no chest wall tenderness HEART : Tachycardic, no obvious murmurs ABDOMEN: Distended, nontender EXTREMITIES : No LE swelling/tenderness, no other conspicuous deformities noted NEUROLOGIC : Disoriented, no facial asymmetry, gait and stance not assessed Results & Data Results & Data Vital Signs (Past 12 Hours) Vital Signs Temp Pulse Resp BP Pulse Ox O2 Del Method 03/31/23 22:01 106 H 18 03/31/23 22:00 107 H 24 95 03/31/23 21:31 107 H 22 03/31/23 21:31 155/54 H 03/31/23 21:30 103 H 24 03/31/23 21:00 98 H 24 97 03/31/23 21:00 147/58 H 03/31/23 20:30 97 H 27 H 97 03/31/23 20:30 145/78 H 03/31/23 20:01 133/51 L 03/31/23 20:01 98 H 24 100 03/31/23 20:00 98 H 24 99 03/31/23 19:50 137/66 03/31/23 19:50 96 H 24 98 03/31/23 19:30 95 H 22 97 03/31/23 19:08 97 05/02/23 21:21 95 Room Air 03/31/23 21:31 106 H 03/31/23 18:37 131/61 03/31/23 18:37 96 H 35 H 95 03/31/23 18:30 96 H 36 H 03/31/23 18:00 99 H 36 H 03/31/23 17:30 99 H 36 H 97 03/31/23 17:29 99 H 03/31/23 17:40 36.5 C 96 H 30 H 143/64 H 98 Room Air Laboratory Results Laboratory Results WBC 6.23 K/ul (4.8-10.8) 03/31/23 17:28 RBC 2.62 M/uL (4.20-5.40) L 03/31/23 17:28 Hgb 7.0 g/dl (12.0-16.0) L 03/31/23 17:28 Hct 22.9 % (37.0-47.0) L 03/31/23 17:28 MCV 87.4 fL (80.0-100.0) 03/31/23 17:28 MCH 26.7 pg (25.0-34.0) 03/31/23 17: MCHC 30.6 g/dL (32.0-36.0) L 03/31/23 17:28 RDW Std Deviation 61.5 fL (36.4-46.3) H 03/31/23 17:28 RDW Coeff of Lili 19.3 % (11.5-14.5) H 03/31/23 17:28 Plt Count 160 K/uL (130-400) 03/31/23 17:28 MPV 10.3 fL (9.4-12.4) 03/31/23 17:28 Immature Gran % (Auto) 1.0 % 03/31/23 17:28 Neut % (Auto) 84.7 % 03/31/23 17:28 Lymph % (Auto) 4.7 % 03/31/23 17:28 [place] % (Auto) 9.3 % 03/31/23 17:28 Eos % (Auto) 0.0 % 03/31/23 17:28 Baso % (Auto) 0.3 % 03/31/23 17:28 Reticulocyte % (Auto) 4.6 % (0.5-2.0) H 03/31/23 21:07 Neut # (Auto) 5.28 K/uL (1.40-6.50) 03/31/23 17:28 Lymph # (Auto) 0.29 K/uL (1.2-3.4) L 03/31/23 17: [place] # (Auto) 0.58 K/uL (0.11-0.59) 03/31/23 17: Eos # (Auto) 0.00 K/uL (0-0.50) 03/31/23 17: Baso # (Auto) 0.02 K/uL (0-0.2) 03/31/23 17: Reticulocyte # 0.12 10^6/uL (0.02-0.10) H 03/31/23 21:07 Immature Gran # (Auto) 0.06 K/uL (0.01-0.20) 03/31/23: Absolute Nucleated RBC 0.02 K/uL (0-0.12) 03/31/23: Nucleated RBC % (auto) 0.3 % 03/31/23 17: Anisocytosis Present 03/31/23: Tear Drop Cells 1+ 03/31/23: Ovalocytes 1+ 03/31/23: PT 12.0 Seconds (9.0-12.0) 03/31/23: INR 1.1 (0.9-1.1) 03/31/23: APTT 30.1 Seconds (21.0-31.0) 03/31/23: PTT Ratio 1.1 03/31/23 17: VBG pH 7.41 (7.36-7.41) 03/31/23 18:05 VBG pCO2 27 mmHg (38-50) L 03/31/23 18:05 VBG pO2 48 mmHg 03/31/23 18:05 VBG HCO3 17 mmol/L 03/31/23 18:05 VBG O2 Saturation 79.3 % 03/31/23 18:05 VBG Base Excess -6.0 mEq/L 03/31/23 18:05 Sodium 127 mmol/L (136-145) L 03/31/23 21:07 Potassium 4.3 mmol/L (3.5-5.1) 05/02/23 21:07 Chloride 102 mmol/L (98-107) 03/31/23 21:07 Carbon Dioxide 20 mmol/L (21-32) L 03/31/23 21:07 Anion Gap 5 (3-11) 03/31/23 21:07 BUN 25 mg/dl (6-23) H 03/31/23 21:07 Creatinine 0.60 mg/dl (0.6-1.2) 03/31/23 21:07 Est Cr Clr Drug Dosing Not Reportable 03/31/23 21:07 Est GFR ( Amer) 102.6 ml/min 03/31/23 21:07 Est GFR (Non-Af Amer) 88.5 ml/min 03/31/23 21:07 BUN/Creatinine Ratio 41.7 (10-20) H 03/31/23 21:07 Glucose 347 mg/dl (70-99(Fasting)) H* 03/31/23 21:07 POC Glucose 380 mg/dl (70-99) H* 03/31/23 22:41 Osmolality 288 mOsm/kg (280-300) 03/31/23 21:07 Lactate 1.1 mmol/L (0.4-2.0) 03/31/23 18:05 Calcium 8.1 mg/dl (8.6-10.3) L 03/31/23 21:07 Magnesium 1.7 mg/dl (1.7-2.4) 03/31/23 17:28 Iron < 10 mcg/dl (35-150) L 03/31/23 21:07 Transferrin 209 mg/dl (200-360) 03/31/23 21:07 Ferritin 79.6 ng/ml (8-388) 03/31/23 21:07 Total Bilirubin 0.6 mg/dl (0.2-1.0) 03/31/23 17:28 AST 29 U/L (13-39) 03/31/23 17:28 ALT 31 U/L (7-52) 03/31/23 17:28 Alkaline Phosphatase 119 U/L (34-104) H 03/31/23 17:28 Ammonia 23.0 umol/L (18-72) 03/31/23 21:07 Total Creatine Kinase 187 U/L (26-192) 03/31/23 17:28 Troponin I High Sens 23.9 pg/ml (0-14) H 03/31/23 17:28 Total Protein 5.9 gm/dl (6.0-8.3) L 03/31/23 17:28 Albumin 3.3 gm/dl (3.4-5.0) L 03/31/23 17:28 Globulin 2.6 gm/dl (2.5-4.0) 03/31/23 17:28 Albumin/Globulin Ratio 1.3 (0.9-2) 03/31/23 17:28 Vitamin B12 305 pg/ml (180-914) 03/31/23 21:07 Folate 13.15 ng/ml (>5.38) 03/31/23 21:07 TSH 3.127 uIu/ml (0.300-4.500) 03/31/23 17:28 Urine Color Yellow 03/31/23 17:59 Urine Appearance Clear (Clear) 03/31/23 17:59 Urine pH 5.5 (4.5-7.5) 03/31/23 17:59 Ur Specific [place] 1.024 (1.000-1.030) 03/31/23 17:59 Urine Protein 1+ (Negative) H 03/31/23 17:59 Urine Glucose (UA) 3+ (Negative) H 03/31/23 17:59 Urine Ketones 2+ (Negative) H 03/31/23 17:59 Urine Blood 1+ (Negative) H 03/31/23 17:59 Urine Nitrite Negative (Negative) 03/31/23 17:59 Urine Bilirubin Negative (Negative) 03/31/23 17:59 Urine Urobilinogen Negative (Negative) 03/31/23 17:59 Ur Leukocyte Esterase 1+ (Negative) H 03/31/23 17:59 Urine WBC (Auto) 10-30 /hpf (0-5) H 03/31/23 17:59 Urine RBC (Auto) 0-4 /hpf (0-4) 03/31/23 17:59 U Hyaline Cast (Auto) 1-5 /lpf (0-5) 03/31/23 17:59 U Epithel Cells (Auto) 10-20 /lpf (0-5) H 03/31/23 17:59 Urine Bacteria (Auto) 2+ (Negative) H 03/31/23 17:59 Urine Yeast Present (None Prsent) A 03/31/23 17:59 [place] 0.1 mmol/L (0.6-1.2) L 03/31/23 21:07 SARS-CoV-2, RNA, NAAT NEGATIVE (NEGATIVE) 03/31/23 17:48 Blood Type O Positive 03/31/23 21:07 Antibody Screen NEGATIVE 03/31/23 21:[address] 03/31/23 17:46 Exam(s): CT C SPINE EXAM: CT Cervical Spine Without Intravenous Contrast CLINICAL HISTORY: Reason for exam: ams. TECHNIQUE: Axial computed tomography images of the cervical spine without intravenous contrast. CTDI is 50.67 mGy and DLP is 1725.15 mGy-cm. Automated exposure control was utilized for the study. A dose lowering technique was utilized adhering to the principles of ALARA. COMPARISON: CT C-spine on 08/30/2019 FINDINGS: Exam is limited by motion artifact. Bones: No acute fracture or bony lesion. Stable chronic endplate depressions of C7, T1, and T2. Disc spaces: No subluxation. Degenerative changes of the spine, most prominently at C5-6. Soft tissues: Normal. Other: Atherosclerotic changes of the vasculature.. IMPRESSION: No acute traumatic abnormality. Electronically signed by: Dipti Murguia M.D. 03/31/23 19:53 PM Chest X-Ray 03/31/23 17:46 SINGLE VIEW CHEST CLINICAL HISTORY: Generalized weakness. FINDINGS: An AP, portable, upright chest radiograph is compared to study dated 08/30/2019 and correlated with chest CT dated 08/31/2019. The examination is degraded by portable technique and patient rotation. A left subclavian central venous infusion port is unchanged in position. The heart is mildly enlarged but nothing atherosclerotic calcification of the thoracic aorta. The pulmonary vasculature is noncongested. Chronic interstitial thickening similar to previous. The lungs and pleural spaces are clear noting bibasilar scarring/atelectasis. No pneumothorax is seen. The skeletal structures are osteopenic. There are chronic/healed bilateral rib fractures. Postsurgical change is noted in the right humeral head. IMPRESSION: Mild cardiomegaly with no acute cardiopulmonary abnormality identified. ACT 112: Negative or not required by law. Electronically signed by: Marc Hastings M.D. 03/31/2023 7:[address] 03/31/23 17:46 Exam(s): CT HEAD Without Contrast EXAM: CT Head Without Intravenous Contrast CLINICAL HISTORY: Reason for exam: ams. TECHNIQUE: Axial computed tomography images of the head/brain without intravenous contrast. CTDI is 50.67 mGy and DLP is 1725.15 mGy-cm. Automated exposure control was utilized for the study. A dose lowering technique was utilized adhering to the principles of ALARA. COMPARISON: CT head on 08/30/2019 FINDINGS: Brain: No acute infarct or hemorrhage identified. No extra-axial fluid collection. No mass effect or midline shift. Scattered areas of hypoattenuation in the supratentorial white matter likely represent chronic small vessel ischemic changes. Similar calcifications in the right caudate and basal ganglia. Ventricles and sulci: Prominence of the ventricles and sulci is likely secondary to cerebral volume loss. Cavum septum pellucidum. Bones: Normal. No bony lesion or acute fracture. Subcutaneous tissues: Normal. Sinuses: Normal. No air-fluid levels or mucosal thickening. Mastoid air cells: Normal. Orbits: Bilateral lens implants. Other: Atherosclerotic calcifications in the intracranial vasculature. IMPRESSION: 1. No acute intracranial abnormality. 2. Chronic small vessel ischemic changes and cerebral volume loss. Electronically signed by: Dipti Murguia M.D. 03/31/23 19:41 PM Diagnostic Findings EKG as per my interpretation :Rate 100, NSR, LAD, LAFB, incomplete RBBB, inferior infarct, low voltage
[2023-04-01] MEDS ORDERED: GLUCOSE 40% GEL 15 GM TUBE PO PRN (00:22)
[2023-04-01] MEDS ORDERED: CARBOHYDRATES FOR HYPOGLYCEMIA PO PRN (00:22)
[2023-04-01] MEDS ORDERED: GLUCOSE 10 TAB/TUBE PO PRN (00:22)
[2023-04-01] MEDS ORDERED: DEXTROSE 50% 50 ML SYRINGE IV PRN (00:22)
[2023-04-01] MEDS ORDERED: GLUCAGON FOR INJ 1 MG VIAL SQ PRN (00:22)
[2023-04-01] MEDS ORDERED: INSULIN ASPART PER UNIT CHARGE SC SCH ×2 (00:25→06:00)
[2023-04-01] MEDS ORDERED: ACETAMINOPHEN 325 MG TAB PO STA (01:14)
[2023-04-01 01:26] LABS: Hematocrit (blood only) 22.9 % (37.0-47.0); Hemoglobin 6.9 g/dl (12.0-16.0)
[2023-04-01] MEDS ORDERED: SODIUM CHLORIDE 0.9% 250 ML IV PRN (01:29)
[2023-04-01] MEDS ORDERED: LANTUS PER UNIT CHARGE SC STA (02:10)
[2023-04-01] MEDS ORDERED: ACETAMINOPHEN 325 MG TAB PO PRN (02:20)
[2023-04-01] MEDS ORDERED: DULoxetine HCL 60 MG CAP PO SCH (02:20)
[2023-04-01] MEDS ORDERED: risperiDONE 1 MG TABLET PO SCH (02:20)
[2023-04-01] MEDS: MAGNESIUM SULFATE / D5W 1 GM/100 ML BAG IV SCH ×2 (02:26→04:36)
[2023-04-01] MEDS ORDERED: PROMETHAZINE HCL 6.25 MG in SODIUM CHLORIDE 0.9% 50 ML IV PRN (03:21)
[2023-04-01 03:26] LABS: Calcium 8.3 mg/dl (8.6-10.3); Creatinine Clr Calc Pharmacy 77.9 ml/min; Est GFR (African American) 103.2 ml/min; Potassium 4.2 mmol/L (3.5-5.1)
[2023-04-01] MEDS ORDERED: SODIUM CHLORIDE 0.45 % 1,000 ML IV ONE (03:33)
[2023-04-01] MEDS: NYSTATIN POWDER 15GM BTL EXT SCH ×2 (04:36→20:57)
[2023-04-01] MEDS: LEVOTHYROXINE SODIUM 25 MCG TABLET PO SCH (05:28)
[2023-04-01] MEDS ORDERED: XOPENEX/ATROVENT 1.25mg/0.5MG NEB COMBO NEB STA (05:57)
[2023-04-01] MEDS ORDERED: LANTUS PER UNIT CHARGE SQ STA (06:00)
[2023-04-01] MEDS ORDERED: IPRATROPIUM BROMIDE NEB SOLN 0.02% 2.5 ML VIAL INH STA (06:07)
[2023-04-01] MEDS ORDERED: LEVALBUTEROL 1.25MG/0.5ML NEB INH STA (06:07)
[2023-04-01 06:26] LABS: A calco-baum cmplx NotReported Not Detected (NotDetected); Bact fragilis Not Reported Not Detected (NotDetected); C auris Not Reported Not Detected (NotDetected); Calbicans Not Reported Not Detected (NotDetected); Candida glabrata Not Reported Not Detected (NotDetected); Candida krusei Not Reported Not Detected (NotDetected); Cneoformans/gatti Not Reported Not Detected (NotDetected); Cparapsilosis Not Reported Not Detected (NotDetected); Ctropicalis Not Reported Not Detected (NotDetected); E cloacae compx Not Reported Not Detected (NotDetected); Efaecalis Not Reported Not Detected (NotDetected); Efaecium Not Reported Not Detected (NotDetected); Enterobacterales DETECTED (NotDetected); Enterobacterales Not Reported DETECTED (NotDetected); Escherichia coli Not Reported DETECTED (NotDetected); H influenzae Not Reported Not Detected (NotDetected); IMP Resistant Gene Not Detected (NotDetected); K aerogenes Not Reported Not Detected (NotDetected); KPC Resistant Gene Not Detected (NotDetected); Koxytoca Not Reported Not Detected (NotDetected); Kpneumoniae grp Not Reported Not Detected (NotDetected); Lmonocyt Not Reported Not Detected (NotDetected); N meningitidis Not Reported Not Detected (NotDetected); NDM Resistant Gene Not Detected (NotDetected); OXA 48 Like Resistant Gene Not Detected (NotDetected); P aeruginosa Not Reported Not Detected (NotDetected); Proteus spp Not Reported Not Detected (NotDetected); Salmonella spp Not Reported Not Detected (NotDetected); Smarcescens Not Reported Not Detected (NotDetected); Staph lugdunensis Not Reported Not Detected (NotDetected); Staph spp. Not Reported Not Detected (NotDetected); Staphaureus Not Reported Not Detected (NotDetected); Staphepi Not Reported Not Detected (NotDetected); Stenmaltophilia Not Reported Not Detected (NotDetected); Strep agal(GrpB) Not Reported Not Detected (NotDetected); Strep pneum Not Reported Not Detected (NotDetected); Strep pyog (GrpA) Not Reported Not Detected (NotDetected); Strep spp Not Reported Not Detected (NotDetected); VIM Resistant Gene Not Detected (NotDetected); mcr-1 Colistin Resistant Gene Not Detected (NotDetected)
[2023-04-01] MEDS ORDERED: FUROSEMIDE INJ 20 MG/2 ML VIAL IV ONE (06:31)
[2023-04-01 07:47] LABS: Basophils # (auto) 0.02 K/uL (0-0.2); Basophils % (auto) 0.3 %; Hematocrit (blood only) 28.9 % (37.0-47.0); Hemoglobin 8.8 g/dl (12.0-16.0); Immature Granulocytes # (auto) 0.03 K/uL (0.01-0.20); Immature Granulocytes % (auto) 0.5 %; Lymphocytes # (auto) 0.39 K/uL (1.2-3.4); Lymphocytes % (auto) 6.2 %; Mean Corpuscular Hemoglobin 26.7 pg (25.0-34.0); Mean Corpuscular Hgb Conc 30.4 g/dL (32.0-36.0); Mean Corpuscular Volume 87.8 fL (80.0-100.0); Mean Platelet Volume 9.4 fL (9.4-12.4); Monocytes # (auto) 0.49 K/uL (0.11-0.59); Monocytes % (auto) 7.8 %; Neutrophils # (auto) 5.38 K/uL (1.40-6.50); Neutrophils % (auto) 85.2 %; Nucleated RBC # (auto) 0.03 K/uL (0-0.12); Nucleated RBC % (auto) 0.5 %; Platelet Count 155 K/uL (130-400); RDW Coefficient of Variation 18.6 % (11.5-14.5); Red Blood Count 3.29 M/uL (4.20-5.40); White Blood Count 6.31 K/ul (4.8-10.8)
--- NOTE | 2023-04-01 07:50 | XRay Report ---
XR chest 1V portable HISTORY: wheeze COMPARISON: Chest 03/31/2023. FINDINGS: No pneumothorax. The cardiac silhouette remains mildly enlarged. There is a left-sided subc lavian Port-A-Cath which terminates in the SVC. Postoperative changes again noted within the proximal right humerus. No new focal lung consolidations to suggest a pneumonia. No evidence for pulmonary ed aurelia. Stable mild elevation of the right hemidiaphragm. There is an old, healed left clavicle fracture . Old, healed left-sided rib fractures. IMPRESSION: No significant change compared to the prior study. No acute process. ACT 112: Negative or not required by law. Electronically signed by: Fausto Angel M.D. 04/01/2023 7:49 AM
[2023-04-01 08:28] LABS: Estimated Average Glucose 128 mg/dl; Hemoglobin A1C 6.1 % (4.5-5.6)
[2023-04-01] MEDS ORDERED: PHARMACY GLYCEMIC MGMT CONSULT PRN (08:33)
[2023-04-01] MEDS ORDERED: LOSARTAN POTASSIUM 50 MG TAB PO SCH (09:00)
[2023-04-01] MEDS: MULTIVITAMIN TAB PO SCH (09:12)
[2023-04-01] MEDS: ARIPiprazole 5 MG TAB PO SCH (09:13)
[2023-04-01] MEDS: levETIRAcetam 500 MG TAB PO SCH ×2 (09:13→20:56)
[2023-04-01] MEDS: THIAMINE HCL 100 MG TAB PO SCH (09:13)
[2023-04-01 09:16] LABS: Base Excess ABG -4.7 mEq/L (-9-1.8); HCO3 ABG 18 mmol/L (19-24); Oxygen Saturation ABG > 100.0 % (90-95); PCO2 ABG 26 mmHg (35-46); PO2 ABG 123 mmHg (80-95); pH ABG 7.45 (7.35-7.45)
[2023-04-01 09:22] LABS: Allen Test Pos (Pos)
--- NOTE | 2023-04-01 09:36 | Pharmacy Report ---
Pharmacy Glycemic Short Note 2 - Date of Service April 01, 2023 - Glycemic Short BSG Results (Last 24 hours): 03/31/23 03/31/23 03/31/23 17:28 17:35 20:46 Glucose 527 H* POC Glucose 552 H* 400 H* 03/31/23 03/31/23 04/01/23 21:07 22:41 01:02 Glucose 347 H* POC Glucose 380 H* 411 H* 04/01/23 04/01/23 04/01/23 01:06 02:18 02:21 Glucose 375 H* POC Glucose 408 H* 430 H* 04/01/23 05:53 Glucose POC Glucose 363 H* OUTPATIENT ANTIDIABETIC REGIMEN: * Lantus 54 units SC HS * Metformin 1500 mg PO daily * Jardiance 10 mg PO daily HbA1c: 6.1% (03/31/23) ASSESSMENT: * BR is a 77 year old female who presented to ED on 03/31 for evaluation of altered mental status * Blood and urine cultures are positive for gram-negative bacilli -E.coli per [facility] results * Empirically on cefepime at this time * Pharmacy consulted for glycemic management this morning due to persistently elevated BSGs since time of admission * Prior to consult, patient received 3 doses of Lantus overnight (30 units, 10 units, and 20 units for a total of 60 units), 10 units of IV insulin, and 20 units of Novolog. * BSG recheck mid-morning of 495 mg/dL - discussed with hospitalist and will initiated insulin infusion PLAN FOR INPATIENT GLYCEMIC CONTROL: * Hold outpatient oral diabetes medications * Insulin infusion - will transition back to SC basal/bolus once euglycemic * Basal insulin * Received 60 units of Lantus today - will hold ongoing for now * Bolus insulin * Novolog per insulin infusion calculator while on insulin infusion
--- NOTE | 2023-04-01 10:04 | Nephrology Consultation ---
Date of Consultation April 01, 2023 Assessment & Plan (1) Disorders of fluid, electrolyte, and acid-base balance: moderate - severe hyponatremia on presentation which corrected quite quickly even as serum glucose was relatively unchanged from presentation through this AM. ketonuria noted ABG remarkable for alkalemia overall but notable AG metabolic acidosis component; she could have had relative dehydration from metformin, from jardiance. No diuretics on board, no hx of emesis reported. severe hypoxic respiratory failure but does not appear to be fluid overloaded >> with hyperglycemia, urine ketones, AG acidosis in setting of bacteremia, favor DKA and would treat as such. >recommend following DKA protocol, including q4h stat bmp checks >would not work to lower too rapidly corrected hyponatremia at this point > would prioritize DKA care over rate of sodium correction >source/cause of hypoxia unclear > consider TTE or chest CT chest PE protocol >given IV contrast exposure and severe illness, have held losartan >>with her chornic [place] therapy she will be quite prone to hyPERnatremia if NPO for extended time before recommending fluids, we absolutely need to recheck chemistries on her which appear to be pending; will verify and otherwise d/w Dr Ramirez (2) Bacteremia: History of Present Illness Reason for Consultation: hyponatremia, acidemia in setting of hypoglycemia Requesting Physician: Dr Ramirez Attending Physician: Boni Ramirez MD History of Present Illness 77 y/o F whom I'm asked to see for hypnatremia and acidemia in the setting of hyperglycemia was admitted overnight for a few days of worsening/ altered mental statusand found to have GNR bacteremia and blood glucose in 400-500 range. PMH includes hypertension, DM2 insulin requiring, COPD, seizure disorder, history of traumatic SAH, history of hypothyroidism, COPD, ADD/bipolar disorder/ OCD on chronic lithium, remote tobacco abuse, hx cervical cancer status post chemoradiation, cirrhosis, hx of recurrent GI bleed (gastric ulcer, AVMS, colonic angiectasia, hemorrhoids, diverticulosis, history radiation proctitis as per records), chronic anemia (baseline hemoglobin of 9 last January 2023). Also hx of unwitnessed fall 2019 w/ acute C spine fracture managed conservatively. ER eval remarkable for BG in 500s, hgb 7 and bloody stool as well as GNR in blood and urine. her presenting sodium was 122 and increased to 131 this am w/ K stable in low 4s and BG this am 400s. In the ER she had insulin, ceftriaxone. CT a/p pending. She is currently on an insulin gtt and no IVF > she rapidly developed respiratory failure, needing 5L 02NC since arrival. the patient remains confused and was unable to participate meaningfully in ROS. She denies pain in abdomen or musculoskeletal; denies sob cough or wheeze; denies n/v; denies new/worrisome voiding sx or flank pain. she does endorse marked thirst. Allergies Allergy/AdvReac Type Severity Reaction Status Date / Time divalproex sodium Allergy Severe weakness, Verified 01/14/23 09:02 [From Depakote] ataxia, confusion lidocaine Allergy Severe edema face Verified 01/14/23 09:02 and lips aspirin Allergy Intermediate INTESTINAL Verified 01/14/23 09:02 BLEEDING AND HIVES magnesium citrate Allergy Intermediate HIVES AND Verified 01/14/23 09:02 SWELLING prednisone Allergy Intermediate HIVES; Verified 01/14/23 09:02 TREMORS simethicone Allergy Intermediate Hives/swell Verified 01/14/23 09:02 ing rosiglitazone AdvReac Severe Anemia/swelling/seizure/memory Verified 01/14/23 09:02 loss valproic acid AdvReac Severe weakness/at Verified 01/14/23 09:02 axia/confus ion citalopram AdvReac Intermediate tremors Verified 01/14/23 09:02 clonazepam AdvReac Intermediate Agitated Verified 01/14/23 09:02 metoclopramide AdvReac Intermediate Leg pains Verified 01/14/23 09:02 onion AdvReac Intermediate nausea/vomi Verified 01/14/23 09:02 ting simvastatin AdvReac Intermediate Leg pains Verified 01/14/23 09:02 sulfamethoxazole AdvReac Intermediate Nausea/vomi Verified 01/14/23 09:02 ting trimethoprim AdvReac Intermediate Nausea/vomi Verified 01/14/23 09:02 ting Home Medications Medication Instructions Recorded Confirmed Type levetiracetam 1,000 mg tablet 1,000 mg PO AMHS 12/07/18 03/31/23 History (Keppra) levothyroxine 25 mcg tablet See Rx Instructions .Route .COMPLEX 12/07/18 03/31/23 History (Synthroid) loperamide 2 mg tablet 2 mg PO QID PRN Diarrhea 12/07/18 03/31/23 History metformin 750 mg tablet,extended 1,500 mg PO QAM 12/07/18 03/31/23 History release 24 hr mirtazapine 30 mg tablet (Remeron) 30 mg PO HS 12/07/18 03/31/23 History multivitamin 1 tab PO QAM 12/07/18 03/31/23 History thiamine HCl (vitamin B1) 100 mg 100 mg PO QAM 12/07/18 03/31/23 History tablet (Vitamin B-1) iron,carbonyl 65 mg-vitamin C 125 1 tab PO QAM 08/30/19 03/31/23 History mg tablet,delayed release (Vitron-C) albuterol sulfate 90 mcg/actuation 2 puff inhalation Q6 PRN Wheezing 08/31/19 03/31/23 History aerosol inhaler gabapentin 100 mg capsule 100 mg PO TID 09/02/21 03/31/23 History insulin glargine 100 unit/mL (3 54 unit subcut HS 09/02/21 03/31/23 History mL) subcutaneous pen (Lantus Solostar U-100 Insulin) trazodone 100 mg tablet 100 mg PO HS 09/02/21 03/31/23 History acetaminophen 325 mg tablet 325 mg PO Q6 PRN Pain 01/12/23 03/31/23 History (Tylenol) candesartan 16 mg tablet 16 mg PO QAM 01/12/23 03/31/23 History cyanocobalamin (vitamin B-12) 1,000 mcg IM MONTHLY 01/12/23 03/31/23 History 1,000 mcg/mL injection solution empagliflozin 10 mg tablet 10 mg PO QAM 01/12/23 03/31/23 History (Jardiance) ezetimibe 10 mg tablet (Zetia) 10 mg PO QAM 01/12/23 03/31/23 History latanoprost (PF) 0.005 % eye drops 1 drp ophthalmic (eye) HS 01/12/23 03/31/23 History lithium carbonate 300 mg tablet 300 mg PO HS 01/12/23 03/31/23 History aripiprazole 5 mg tablet 5 mg PO QAM 03/31/23 03/31/23 History duloxetine 60 mg capsule,delayed 60 mg PO UD 03/31/23 03/31/23 History release risperidone 1 mg tablet (Risperdal) See Rx Instructions .Route .COMPLEX 03/31/23 03/31/23 History Patient History Medical History Anemia Asthma RARE RES. INH USE Bipolar 1 disorder (04/07/14) Cavernoma Cervical adenocarcinoma (11/04/17) "Postmenopausal vaginal bleeding Ultrasound revealing a large cervical mass Status post biopsy 11/04/2017 Invasive adenocarcinoma of the cervix Status post completion of definitive radiation and chemotherapy. Status post completion of radiation therapy March 19, 2018. She received 5200 cGy external beam treatment. She received 2350 cGy with HDR tandem and ovoid therapy." DM (diabetes mellitus) IDDM Dyslipidemia History of COVID-19 tested positive on a home test ~Beginning of September 2022. patient unsure of exact date. reports symptoms included: sore throat, cough and headache. resolved currently. History of GI bleed Hypertension Hypothyroidism Intracranial hemorrhage resolved> was from fall (2013) Ana (04/07/14) HX OF Memory changes r/t fall "long time ago,I don't know when it was". Alert and oriented, poor historian. Mood disorder Multiple rib fractures RESOLVED Poor historian Seizure disorder grand mal > last one > "years ago" Surgical History History of appendectomy History of bilateral tubal ligation History of cataract surgery bilateral History of colonoscopy History of esophagogastroduodenoscopy (EGD) History of open reduction and internal fixation (ORIF) procedure Left Femur ORIF with kody. History of repair of rotator cuff RCR Hx of cervical spine surgery pt denies -- states she hurt her neck during a fall "about 5 years ago". ROM wnl. Family History Other Family history non-contributory No family history of adverse response to anesthesia Social History Smoking Status: Never smoker Tobacco Type: Cigarettes Second Hand Exposure: No; Do You Dip or Chew Tobacco: No; Preferred Language: Armenian Communication Ability: Effective Roll Out Manager Required: No Beliefs That Will Affect Care: None Current Living Situation: Spouse Feels Safe at Home: Yes Assistive Devices: Glasses Review of Systems Review of Systems: Unobtainable due to reduced consciousness Physical Exam Constitutional: well developed, well nourished and + acute distress (slight/faint rigors) Eyes: EOM intact bilaterally ENMT: Ears: no external ear abnormality Nose: no external nose abnormality Mouth: + dry oral mucous membranes Neck: no nuchal rigidity Respiratory: + labored breathing, + abnormal respiratory pattern, + tachypneic and + pursed lip breathing; + abnormal respiratory effort (puffs a bit with her breathing), does not use accessory muscles, no cough and expiratory phase not prolonged Auscultation: + diminished lung sounds Cardiovascular: RRR, no murmur, no edema Gastrointestinal (Abdomen): Inspection/Auscultation: normal bowel sounds Percussion/Palpation: abdomen soft; abdomen nontender Musculoskeletal: Extremities: strength 5/5 throughout Skin: no rashes, warm and dry Neurologic: smith, limited speech, rigors Psychiatric: Orientation: alert, oriented to person and + guarded Results & Data Vital Signs (Past 12 Hours) Vital Signs Temp Pulse Pulse Resp BP BP Pulse Ox 04/01/23 07:37 37.2 C 96 H 20 131/66 100 04/01/23 07:32 04/01/23 05:53 36.8 C 100 H 20 121/66 96 04/01/23 06:22 106 H 29 H 98 04/01/23 05:45 36.8 C 100 H 20 121/66 96 04/01/23 02:10 04/01/23 02:10 36.9 C 98 H 20 123/66 97 04/01/23 04:45 36.6 C 84 20 112/70 100 04/01/23 02:18 94 H 04/01/23 03:45 36.7 C 82 20 115/65 98 04/01/23 03:15 37.3 C 87 20 115/60 98 04/01/23 03:00 37.0 C 86 18 118/60 98 04/01/23 02:42 36.9 C 90 18 102/57 L 98 04/01/23 02:14 04/01/23 01:17 97 H 04/01/23 00:30 107 H 24 93 04/01/23 00:30 129/57 L 04/01/23 00:28 101 H 23 94 04/01/23 00:28 141/49 H 04/01/23 00:00 102 H 24 04/01/23 00:00 150/60 H 03/31/23 23:30 102 H 22 03/31/23 23:00 106 H 24 03/31/23 23:00 139/61 03/31/23 22:30 106 H 23 04/01/23 00:38 38.0 C H O2 Del Method O2 Flow Rate 04/01/23 07:37 Nasal Cannula 5 04/01/23 07:32 Nasal Cannula 5 04/01/23 05:53 2 04/01/23 06:22 Nasal Cannula 5 04/01/23 05:45 2 04/01/23 02:10 Room Air 04/01/23 02:10 Room Air 04/01/23 04:45 2 04/01/23 02:18 04/01/23 03:45 04/01/23 03:15 04/01/23 03:00 04/01/23 02:42 04/01/23 02:14 Room Air 04/01/23 01:17 04/01/23 00:30 04/01/23 00:30 04/01/23 00:28 04/01/23 00:28 04/01/23 00:00 04/01/23 00:00 03/31/23 23:30 03/31/23 23:00 03/31/23 23:00 03/31/23 22:30 04/01/23 00:38 Laboratory Results 04/01/23 07:[address] a/p pending cxr x 2 > mild cardiomegaly; else no acute process; port present; evidence of old fractures head CT 1. No acute intracranial abnormality. 2. Chronic small vessel ischemic changes and cerebral volume loss.
[2023-04-01] MEDS ORDERED: INSULIN PROTOCOL GOAL RANGE ONE (10:05)
[2023-04-01] MEDS ORDERED: STAT IV STA (10:05)
[2023-04-01] MEDS ORDERED: SEVERE STRESS LEVEL ONE (10:05)
[2023-04-01] MEDS ORDERED: INSULIN REGULAR 250 UNITS in SODIUM CHLORIDE 0.9% 247.5 ML IV SCH (10:15)
[2023-04-01] MEDS ORDERED: INSULIN HUMAN REGULAR IV BOLUS 2.5 UNITS in SYRINGE 0 ML IV ONE (10:15)
--- NOTE | 2023-04-01 10:32 | Hospitalist Progress Note ---
Date of Service April 01, 2023 Assessment & Plan (1) Encephalopathy acute: (2) Acute hyperglycemia: (3) Urinary tract infection: (4) Bacteremia: Plan: (1) Encephalopathy acute: Plan: Multifactorial: Hyperglycemic crisis, history DM 2 insulin requiring, reasonable control as of recent hemoglobin A1c of 7.2 every 2022 Complicated UTI, bacteremia, possible sepsis Hyponatremia (corrected serum sodium of 129 for serum glucose of 527) Home neuropsychotropic meds contributory, hx ADD/bipolar disorder/OCD as per records Hold gabapentin, Remeron, trazodone until mentation back to baseline UTI, Bacteremia 5/2 blood culture positive for gram-negative bacilli 5/2 urine culture positive for gram-negative bacilli Continue with cefepime for now Repeat blood cultx Follow final cultx results will discuss w/ ID Hyperglycemia, DM Already received IVF since admission, IV and subq insulin - blood glucose still not controlled - Glycemic pharmacy consulted , ABG and repeat BMP for 2 pm ordered -update hemoglobin A1c -BG goal 110-140, - Discussed w/ pharmacist Hyponatremia - secondary to hyperglycemia - received IVF and Na improved - repeat BMP at 2pm - nephrology consulted, careful correction of sodium Acute on chronic anemia secondary to painless LGIB hx colonic angiectasia, hemorrhoids, diverticulosis, radiation proctitis as per records ro infectious colitis given sepsis criteria Stool CS, C. difficile Clear liquid diet for now CT abdomen pelvis Re: L GIB, sepsis - ordered Follow H&H, transfuse PRBC if hemoglobin less than 7 and or for symptomatic anemia hypertension, BP slightly elevated history of seizure disorder as per records, history of traumatic SAH hx cirrhosis, no overt decompensation history of hypothyroidism, euthyroid as of today's TSH COPD, lung status at baseline, remote tobacco abuse, hx cervical cancer status post chemoradiation Possible functional disability PT OT eval once medically stable DVT prophylaxis. SCDs RE recurrent GI bleed Full code Patient's family contacts- Ms. Bessie Ramsey (daughter), contact #[phone]. Mr. Antonio Rowland () , contact #[phone]. Admission and Anticipated Discharge Date Admission Date: April 01, 2023 Subjective Pt seen in follow up of AMS, UTI - bacteremia, hyperglycemia (hyponatremia 2/2 hyperglycemia) Laying in bed, in no acute distress, on 5 L of supplemental oxygen She is able to answer some simple questions appropriately. Denies any chest pain denies shortness of breath, denies abdominal pain. Per RN conversation with family, patient's who helps her with medications/insulin, had a rib fracture, and was not able to help her. Urine culture positive for gram-negative bacilli, blood culture also positive for gram-negative bacilli Blood glucose level still not controlled, glycemic pharmacy consulted Discussed with pharmacist in detail regarding her antibiotic and insulin regimen Also discussed with nephrology, as patient may need more fluids, however on supplemental oxygen already, bicarb still low. Nephrology consult placed. Patient will also be transferred to PCU. Review of Systems Review of Systems: All systems reviewed & are unremarkable except as noted in Subjective Physical Exam Physical Exam: GENERAL: elderly frail F in NAD, on suppl. O2 HEENT: NC/AT. pale palpebral conjunctivae, no ptosis, dry buccal mucosa NECK : Supple, no tenderness CHEST : Decreased breath sounds, no chest wall tenderness HEART : rrr, no obvious murmurs ABDOMEN: soft, nontender, + bowel sounds EXTREMITIES : No LE swelling/tenderness, moves extremities SKIN: Pallor, warm NEUROLOGIC : awake but somewhat drowsy, answers some simple questions appropriately, no facial asymmetry, moves extremities Results & Data Results & Data Vital Signs (Past 12 Hours) Vital Signs Temp Pulse Pulse Resp BP BP Pulse Ox 04/01/23 07:37 37.2 C 96 H 20 131/66 100 04/01/23 07:32 04/01/23 05:53 36.8 C 100 H 20 121/66 96 04/01/23 06:22 106 H 29 H 98 04/01/23 05:45 36.8 C 100 H 20 121/66 96 04/01/23 02:10 04/01/23 02:10 36.9 C 98 H 20 123/66 97 04/01/23 04:45 36.6 C 84 20 112/70 100 04/01/23 02:18 94 H 04/01/23 03:45 36.7 C 82 20 115/65 98 04/01/23 03:15 37.3 C 87 20 115/60 98 04/01/23 03:00 37.0 C 86 18 118/60 98 04/01/23 02:42 36.9 C 90 18 102/57 L 98 04/01/23 02:14 04/01/23 01:17 97 H 04/01/23 00:30 107 H 24 93 04/01/23 00:30 129/57 L 04/01/23 00:28 101 H 23 94 04/01/23 00:28 141/49 H 04/01/23 00:00 102 H 24 04/01/23 00:00 150/60 H 03/31/23 23:30 102 H 22 03/31/23 23:00 106 H 24 03/31/23 23:00 139/61 04/01/23 00:38 38.0 C H O2 Del Method O2 Flow Rate 04/01/23 07:37 Nasal Cannula 5 04/01/23 07:32 Nasal Cannula 5 04/01/23 05:53 2 04/01/23 06:22 Nasal Cannula 5 04/01/23 05:45 2 04/01/23 02:10 Room Air 04/01/23 02:10 Room Air 04/01/23 04:45 2 04/01/23 02:18 04/01/23 03:45 04/01/23 03:15 04/01/23 03:00 04/01/23 02:42 04/01/23 02:14 Room Air 04/01/23 01:17 04/01/23 00:30 04/01/23 00:30 04/01/23 00:28 04/01/23 00:28 04/01/23 00:00 04/01/23 00:00 03/31/23 23:30 03/31/23 23:00 03/31/23 23:00 04/01/23 00:38 Laboratory Results 04/01/23 04/01/23 04/01/23 Range/Units 09:52 09:42 09:41 WBC (4.8-10.8) K/ul RBC (4.20-5.40) M/uL Hgb (12.0-16.0) g/dl Hct (37.0-47.0) % MCV (80.0-100.0) fL MCH (25.0-34.0) pg MCHC (32.0-36.0) g/dL RDW Std Deviation (36.4-46.3) fL RDW Coeff of Lili (11.5-14.5) % Plt Count (130-400) K/uL MPV (9.4-12.4) fL Immature Gran % (Auto) % Neut % (Auto) % Lymph % (Auto) % [place] % (Auto) % Eos % (Auto) % Baso % (Auto) % Reticulocyte % (Auto) (0.5-2.0) % Neut # (Auto) (1.40-6.50) K/uL Lymph # (Auto) (1.2-3.4) K/uL [place] # (Auto) (0.11-0.59) K/uL Eos # (Auto) (0-0.50) K/uL Baso # (Auto) (0-0.2) K/uL Reticulocyte # (0.02-0.10) 10^6/uL Immature Gran # (Auto) (0.01-0.20) K/uL Absolute Nucleated RBC (0-0.12) K/uL Nucleated RBC % (auto) % Anisocytosis Tear Drop Cells Ovalocytes PT (9.0-12.0) Seconds INR (0.9-1.1) APTT (21.0-31.0) Seconds PTT Ratio ABG pH (7.35-7.45) ABG pCO2 (35-46) mmHg ABG pO2 (80-95) mmHg ABG HCO3 (19-24) mmol/L ABG O2 Saturation (90-95) % ABG Base Excess (-9-1.8) mEq/L Girma Test (Pos) VBG pH (7.36-7.41) VBG pCO2 (38-50) mmHg VBG pO2 mmHg VBG HCO3 mmol/L VBG O2 Saturation % VBG Base Excess mEq/L Oxygen Given Sodium (136-145) mmol/L Potassium (3.5-5.1) mmol/L Chloride (98-107) mmol/L Carbon Dioxide (21-32) mmol/L Anion Gap (3-11) BUN (6-23) mg/dl Creatinine (0.6-1.2) mg/dl Est Cr Clr Drug Dosing Est GFR ( Amer) ml/min Est GFR (Non-Af Amer) ml/min BUN/Creatinine Ratio (10-20) Glucose 405 H* (70-99(Fasting)) mg/dl POC Glucose 495 H* 445 H* (70-99) mg/dl Estimat Average Glucose mg/dl Hemoglobin A1c (4.5-5.6) % Osmolality (280-300) mOsm/kg Lactate (0.4-2.0) mmol/L Calcium (8.6-10.3) mg/dl Magnesium (1.7-2.4) mg/dl Iron (35-150) mcg/dl Transferrin (200-360) mg/dl Ferritin (8-388) ng/ml Total Bilirubin (0.2-1.0) mg/dl AST (13-39) U/L ALT (7-52) U/L Alkaline Phosphatase (34-104) U/L Ammonia (18-72) umol/L Total Creatine Kinase (26-192) U/L Troponin I High Sens (0-14) pg/ml Total Protein (6.0-8.3) gm/dl Albumin (3.4-5.0) gm/dl Globulin (2.5-4.0) gm/dl Albumin/Globulin Ratio (0.9-2) Vitamin B12 (180-914) pg/ml Folate (>5.38) ng/ml TSH (0.300-4.500) uIu/ml Urine Color Urine Appearance (Clear) Urine pH (4.5-7.5) Ur Specific [place] (1.000-1.030) Urine Protein (Negative) Urine Glucose (UA) (Negative) Urine Ketones (Negative) Urine Blood (Negative) Urine Nitrite (Negative) Urine Bilirubin (Negative) Urine Urobilinogen (Negative) Ur Leukocyte Esterase (Negative) Urine WBC (Auto) (0-5) /hpf Urine RBC (Auto) (0-4) /hpf U Hyaline Cast (Auto) (0-5) /lpf U Epithel Cells (Auto) (0-5) /lpf Urine Bacteria (Auto) (Negative) Urine Yeast (None Prsent) Urine Osmolality (500-800) mOsm/kg Ur Random Sodium mmol/L Glenvil (0.6-1.2) mmol/L Enterobacterales (PCR) (NotDetected) E. coli (PCR) (NotDetected) SARS-CoV-2, RNA, NAAT (NEGATIVE) mcr-1 Colistin Res Gene PCR (NotDetected) blaIMP Car res Gene PCR (NotDetected) KPC-Carbap Res Gene PCR (NotDetected) blaNDM Car Res Gene PCR (NotDetected) OXA-48 Carbapenem Resis Gene (PCR) (NotDetected) blaVIM Car Res Gene PCR (NotDetected) CTX-M Gene Resistance (PCR) (NotDetected) Bld Cult ID Panel PCR (NotDetected) Blood Type Antibody Screen Crossmatch 04/01/23 04/01/23 04/01/23 Range/Units 08:51 07:02 07:02 WBC 6.31 (4.8-10.8) K/ul RBC 3.29 L (4.20-5.40) M/uL Hgb 8.8 L (12.0-16.0) g/dl Hct 28.9 L (37.0-47.0) % MCV 87.8 (80.0-100.0) fL MCH 26.7 (25.0-34.0) pg MCHC 30.4 L (32.0-36.0) g/dL RDW Std Deviation 60.0 H (36.4-46.3) fL RDW Coeff of Lili 18.6 H (11.5-14.5) % Plt Count 155 (130-400) K/uL MPV 9.4 (9.4-12.4) fL Immature Gran % (Auto) 0.5 % Neut % (Auto) 85.2 % Lymph % (Auto) 6.2 % [place] % (Auto) 7.8 % Eos % (Auto) 0.0 % Baso % (Auto) 0.3 % Reticulocyte % (Auto) (0.5-2.0) % Neut # (Auto) 5.38 (1.40-6.50) K/uL Lymph # (Auto) 0.39 L (1.2-3.4) K/uL [place] # (Auto) 0.49 (0.11-0.59) K/uL Eos # (Auto) 0.00 (0-0.50) K/uL Baso # (Auto) 0.02 (0-0.2) K/uL Reticulocyte # (0.02-0.10) 10^6/uL Immature Gran # (Auto) 0.03 (0.01-0.20) K/uL Absolute Nucleated RBC 0.03 (0-0.12) K/uL Nucleated RBC % (auto) 0.5 % Anisocytosis Tear Drop Cells Ovalocytes PT (9.0-12.0) Seconds INR (0.9-1.1) APTT (21.0-31.0) Seconds PTT Ratio ABG pH 7.45 (7.35-7.45) ABG pCO2 26 L (35-46) mmHg ABG pO2 123 H (80-95) mmHg ABG HCO3 18 L (19-24) mmol/L ABG O2 Saturation > 100.0 H (90-95) % ABG Base Excess -4.7 (-9-1.8) mEq/L Girma Test Pos (Pos) VBG pH (7.36-7.41) VBG pCO2 (38-50) mmHg VBG pO2 mmHg VBG HCO3 mmol/L VBG O2 Saturation % VBG Base Excess mEq/L Oxygen Given 5L Sodium 131 L (136-145) mmol/L Potassium (3.5-5.1) mmol/L Chloride (98-107) mmol/L Carbon Dioxide (21-32) mmol/L Anion Gap (3-11) BUN (6-23) mg/dl Creatinine (0.6-1.2) mg/dl Est Cr Clr Drug Dosing Est GFR ( Amer) ml/min Est GFR (Non-Af Amer) ml/min BUN/Creatinine Ratio (10-20) Glucose (70-99(Fasting)) mg/dl POC Glucose (70-99) mg/dl Estimat Average Glucose mg/dl Hemoglobin A1c (4.5-5.6) % Osmolality (280-300) mOsm/kg Lactate (0.4-2.0) mmol/L Calcium (8.6-10.3) mg/dl Magnesium (1.7-2.4) mg/dl Iron (35-150) mcg/dl Transferrin (200-360) mg/dl Ferritin (8-388) ng/ml Total Bilirubin (0.2-1.0) mg/dl AST (13-39) U/L ALT (7-52) U/L Alkaline Phosphatase (34-104) U/L Ammonia (18-72) umol/L Total Creatine Kinase (26-192) U/L Troponin I High Sens (0-14) pg/ml Total Protein (6.0-8.3) gm/dl Albumin (3.4-5.0) gm/dl Globulin (2.5-4.0) gm/dl Albumin/Globulin Ratio (0.9-2) Vitamin B12 (180-914) pg/ml Folate (>5.38) ng/ml TSH (0.300-4.500) uIu/ml Urine Color Urine Appearance (Clear) Urine pH (4.5-7.5) Ur Specific [place] (1.000-1.030) Urine Protein (Negative) Urine Glucose (UA) (Negative) Urine Ketones (Negative) Urine Blood (Negative) Urine Nitrite (Negative) Urine Bilirubin (Negative) Urine Urobilinogen (Negative) Ur Leukocyte Esterase (Negative) Urine WBC (Auto) (0-5) /hpf Urine RBC (Auto) (0-4) /hpf U Hyaline Cast (Auto) (0-5) /lpf U Epithel Cells (Auto) (0-5) /lpf Urine Bacteria (Auto) (Negative) Urine Yeast (None Prsent) Urine Osmolality (500-800) mOsm/kg Ur Random Sodium mmol/L Glenvil (0.6-1.2) mmol/L Enterobacterales (PCR) (NotDetected) E. coli (PCR) (NotDetected) SARS-CoV-2, RNA, NAAT (NEGATIVE) mcr-1 Colistin Res Gene PCR (NotDetected) blaIMP Car res Gene PCR (NotDetected) KPC-Carbap Res Gene PCR (NotDetected) blaNDM Car Res Gene PCR (NotDetected) OXA-48 Carbapenem Resis Gene (PCR) (NotDetected) blaVIM Car Res Gene PCR (NotDetected) CTX-M Gene Resistance (PCR) (NotDetected) Bld Cult ID Panel PCR (NotDetected) Blood Type Antibody Screen Crossmatch 04/01/23 04/01/23 04/01/23 Range/Units 06:24 06:24 05:53 WBC (4.8-10.8) K/ul RBC (4.20-5.40) M/uL Hgb (12.0-16.0) g/dl Hct (37.0-47.0) % MCV (80.0-100.0) fL MCH (25.0-34.0) pg MCHC (32.0-36.0) g/dL RDW Std Deviation (36.4-46.3) fL RDW Coeff of Lili (11.5-14.5) % Plt Count (130-400) K/uL MPV (9.4-12.4) fL Immature Gran % (Auto) % Neut % (Auto) % Lymph % (Auto) % [place] % (Auto) % Eos % (Auto) % Baso % (Auto) % Reticulocyte % (Auto) (0.5-2.0) % Neut # (Auto) (1.40-6.50) K/uL Lymph # (Auto) (1.2-3.4) K/uL [place] # (Auto) (0.11-0.59) K/uL Eos # (Auto) (0-0.50) K/uL Baso # (Auto) (0-0.2) K/uL Reticulocyte # (0.02-0.10) 10^6/uL Immature Gran # (Auto) (0.01-0.20) K/uL Absolute Nucleated RBC (0-0.12) K/uL Nucleated RBC % (auto) % Anisocytosis Tear Drop Cells Ovalocytes PT (9.0-12.0) Seconds INR (0.9-1.1) APTT (21.0-31.0) Seconds PTT Ratio ABG pH (7.35-7.45) ABG pCO2 (35-46) mmHg ABG pO2 (80-95) mmHg ABG HCO3 (19-24) mmol/L ABG O2 Saturation (90-95) % ABG Base Excess (-9-1.8) mEq/L Girma Test (Pos) VBG pH (7.36-7.41) VBG pCO2 (38-50) mmHg VBG pO2 mmHg VBG HCO3 mmol/L VBG O2 Saturation % VBG Base Excess mEq/L Oxygen Given Sodium (136-145) mmol/L Potassium (3.5-5.1) mmol/L Chloride (98-107) mmol/L Carbon Dioxide (21-32) mmol/L Anion Gap (3-11) BUN (6-23) mg/dl Creatinine (0.6-1.2) mg/dl Est Cr Clr Drug Dosing Est GFR ( Amer) ml/min Est GFR (Non-Af Amer) ml/min BUN/Creatinine Ratio (10-20) Glucose (70-99(Fasting)) mg/dl POC Glucose 363 H* (70-99) mg/dl Estimat Average Glucose mg/dl Hemoglobin A1c (4.5-5.6) % Osmolality (280-300) mOsm/kg Lactate (0.4-2.0) mmol/L Calcium (8.6-10.3) mg/dl Magnesium (1.7-2.4) mg/dl Iron (35-150) mcg/dl Transferrin (200-360) mg/dl Ferritin (8-388) ng/ml Total Bilirubin (0.2-1.0) mg/dl AST (13-39) U/L ALT (7-52) U/L Alkaline Phosphatase (34-104) U/L Ammonia (18-72) umol/L Total Creatine Kinase (26-192) U/L Troponin I High Sens (0-14) pg/ml Total Protein (6.0-8.3) gm/dl Albumin (3.4-5.0) gm/dl Globulin (2.5-4.0) gm/dl Albumin/Globulin Ratio (0.9-2) Vitamin B12 (180-914) pg/ml Folate (>5.38) ng/ml TSH (0.300-4.500) uIu/ml Urine Color Urine Appearance (Clear) Urine pH (4.5-7.5) Ur Specific [place] (1.000-1.030) Urine Protein (Negative) Urine Glucose (UA) (Negative) Urine Ketones (Negative) Urine Blood (Negative) Urine Nitrite (Negative) Urine Bilirubin (Negative) Urine Urobilinogen (Negative) Ur Leukocyte Esterase (Negative) Urine WBC (Auto) (0-5) /hpf Urine RBC (Auto) (0-4) /hpf U Hyaline Cast (Auto) (0-5) /lpf U Epithel Cells (Auto) (0-5) /lpf Urine Bacteria (Auto) (Negative) Urine Yeast (None Prsent) Urine Osmolality 391 L (500-800) mOsm/kg Ur Random Sodium 13 mmol/L Glenvil (0.6-1.2) mmol/L Enterobacterales (PCR) (NotDetected) E. coli (PCR) (NotDetected) SARS-CoV-2, RNA, NAAT (NEGATIVE) mcr-1 Colistin Res Gene PCR (NotDetected) blaIMP Car res Gene PCR (NotDetected) KPC-Carbap Res Gene PCR (NotDetected) blaNDM Car Res Gene PCR (NotDetected) OXA-48 Carbapenem Resis Gene (PCR) (NotDetected) blaVIM Car Res Gene PCR (NotDetected) CTX-M Gene Resistance (PCR) (NotDetected) Bld Cult ID Panel PCR (NotDetected) Blood Type Antibody Screen Crossmatch 04/01/23 04/01/23 04/01/23 Range/Units 02:21 02:18 01:06 WBC (4.8-10.8) K/ul RBC (4.20-5.40) M/uL Hgb (12.0-16.0) g/dl Hct (37.0-47.0) % MCV (80.0-100.0) fL MCH (25.0-34.0) pg MCHC (32.0-36.0) g/dL RDW Std Deviation (36.4-46.3) fL RDW Coeff of Lili (11.5-14.5) % Plt Count (130-400) K/uL MPV (9.4-12.4) fL Immature Gran % (Auto) % Neut % (Auto) % Lymph % (Auto) % [place] % (Auto) % Eos % (Auto) % Baso % (Auto) % Reticulocyte % (Auto) (0.5-2.0) % Neut # (Auto) (1.40-6.50) K/uL Lymph # (Auto) (1.2-3.4) K/uL [place] # (Auto) (0.11-0.59) K/uL Eos # (Auto) (0-0.50) K/uL Baso # (Auto) (0-0.2) K/uL Reticulocyte # (0.02-0.10) 10^6/uL Immature Gran # (Auto) (0.01-0.20) K/uL Absolute Nucleated RBC (0-0.12) K/uL Nucleated RBC % (auto) % Anisocytosis Tear Drop Cells Ovalocytes PT (9.0-12.0) Seconds INR (0.9-1.1) APTT (21.0-31.0) Seconds PTT Ratio ABG pH (7.35-7.45) ABG pCO2 (35-46) mmHg ABG pO2 (80-95) mmHg ABG HCO3 (19-24) mmol/L ABG O2 Saturation (90-95) % ABG Base Excess (-9-1.8) mEq/L Girma Test (Pos) VBG pH (7.36-7.41) VBG pCO2 (38-50) mmHg VBG pO2 mmHg VBG HCO3 mmol/L VBG O2 Saturation % VBG Base Excess mEq/L Oxygen Given Sodium 129 L (136-145) mmol/L Potassium 4.2 (3.5-5.1) mmol/L Chloride 99 (98-107) mmol/L Carbon Dioxide 17 L (21-32) mmol/L Anion Gap 13 H (3-11) BUN 23 (6-23) mg/dl Creatinine 0.59 L (0.6-1.2) mg/dl Est Cr Clr Drug Dosing 77.9 Est GFR ( Amer) 103.2 ml/min Est GFR (Non-Af Amer) 89.0 ml/min BUN/Creatinine Ratio 39.0 H (10-20) Glucose 375 H* (70-99(Fasting)) mg/dl POC Glucose 430 H* 408 H* (70-99) mg/dl Estimat Average Glucose mg/dl Hemoglobin A1c (4.5-5.6) % Osmolality (280-300) mOsm/kg Lactate (0.4-2.0) mmol/L Calcium 8.3 L (8.6-10.3) mg/dl Magnesium (1.7-2.4) mg/dl Iron (35-150) mcg/dl Transferrin (200-360) mg/dl Ferritin (8-388) ng/ml Total Bilirubin (0.2-1.0) mg/dl AST (13-39) U/L ALT (7-52) U/L Alkaline Phosphatase (34-104) U/L Ammonia (18-72) umol/L Total Creatine Kinase (26-192) U/L Troponin I High Sens (0-14) pg/ml Total Protein (6.0-8.3) gm/dl Albumin (3.4-5.0) gm/dl Globulin (2.5-4.0) gm/dl Albumin/Globulin Ratio (0.9-2) Vitamin B12 (180-914) pg/ml Folate (>5.38) ng/ml TSH (0.300-4.500) uIu/ml Urine Color Urine Appearance (Clear) Urine pH (4.5-7.5) Ur Specific [place] (1.000-1.030) Urine Protein (Negative) Urine Glucose (UA) (Negative) Urine Ketones (Negative) Urine Blood (Negative) Urine Nitrite (Negative) Urine Bilirubin (Negative) Urine Urobilinogen (Negative) Ur Leukocyte Esterase (Negative) Urine WBC (Auto) (0-5) /hpf Urine RBC (Auto) (0-4) /hpf U Hyaline Cast (Auto) (0-5) /lpf U Epithel Cells (Auto) (0-5) /lpf Urine Bacteria (Auto) (Negative) Urine Yeast (None Prsent) Urine Osmolality (500-800) mOsm/kg Ur Random Sodium mmol/L Glenvil (0.6-1.2) mmol/L Enterobacterales (PCR) (NotDetected) E. coli (PCR) (NotDetected) SARS-CoV-2, RNA, NAAT (NEGATIVE) mcr-1 Colistin Res Gene PCR (NotDetected) blaIMP Car res Gene PCR (NotDetected) KPC-Carbap Res Gene PCR (NotDetected) blaNDM Car Res Gene PCR (NotDetected) OXA-48 Carbapenem Resis Gene (PCR) (NotDetected) blaVIM Car Res Gene PCR (NotDetected) CTX-M Gene Resistance (PCR) (NotDetected) Bld Cult ID Panel PCR (NotDetected) Blood Type Antibody Screen Crossmatch 04/01/23 04/01/23 03/31/23 Range/Units 01:06 01:02 22:41 WBC (4.8-10.8) K/ul RBC (4.20-5.40) M/uL Hgb 6.9 L* (12.0-16.0) g/dl Hct 22.9 L (37.0-47.0) % MCV (80.0-100.0) fL MCH (25.0-34.0) pg MCHC (32.0-36.0) g/dL RDW Std Deviation (36.4-46.3) fL RDW Coeff of Lili (11.5-14.5) % Plt Count (130-400) K/uL MPV (9.4-12.4) fL Immature Gran % (Auto) % Neut % (Auto) % Lymph % (Auto) % [place] % (Auto) % Eos % (Auto) % Baso % (Auto) % Reticulocyte % (Auto) (0.5-2.0) % Neut # (Auto) (1.40-6.50) K/uL Lymph # (Auto) (1.2-3.4) K/uL [place] # (Auto) (0.11-0.59) K/uL Eos # (Auto) (0-0.50) K/uL Baso # (Auto) (0-0.2) K/uL Reticulocyte # (0.02-0.10) 10^6/uL Immature Gran # (Auto) (0.01-0.20) K/uL Absolute Nucleated RBC (0-0.12) K/uL Nucleated RBC % (auto) % Anisocytosis Tear Drop Cells Ovalocytes PT (9.0-12.0) Seconds INR (0.9-1.1) APTT (21.0-31.0) Seconds PTT Ratio ABG pH (7.35-7.45) ABG pCO2 (35-46) mmHg ABG pO2 (80-95) mmHg ABG HCO3 (19-24) mmol/L ABG O2 Saturation (90-95) % ABG Base Excess (-9-1.8) mEq/L Girma Test (Pos) VBG pH (7.36-7.41) VBG pCO2 (38-50) mmHg VBG pO2 mmHg VBG HCO3 mmol/L VBG O2 Saturation % VBG Base Excess mEq/L Oxygen Given Sodium (136-145) mmol/L Potassium (3.5-5.1) mmol/L Chloride (98-107) mmol/L Carbon Dioxide (21-32) mmol/L Anion Gap (3-11) BUN (6-23) mg/dl Creatinine (0.6-1.2) mg/dl Est Cr Clr Drug Dosing Est GFR ( Amer) ml/min Est GFR (Non-Af Amer) ml/min BUN/Creatinine Ratio (10-20) Glucose (70-99(Fasting)) mg/dl POC Glucose 411 H* 380 H* (70-99) mg/dl Estimat Average Glucose mg/dl Hemoglobin A1c (4.5-5.6) % Osmolality (280-300) mOsm/kg Lactate (0.4-2.0) mmol/L Calcium (8.6-10.3) mg/dl Magnesium (1.7-2.4) mg/dl Iron (35-150) mcg/dl Transferrin (200-360) mg/dl Ferritin (8-388) ng/ml Total Bilirubin (0.2-1.0) mg/dl AST (13-39) U/L ALT (7-52) U/L Alkaline Phosphatase (34-104) U/L Ammonia (18-72) umol/L Total Creatine Kinase (26-192) U/L Troponin I High Sens (0-14) pg/ml Total Protein (6.0-8.3) gm/dl Albumin (3.4-5.0) gm/dl Globulin (2.5-4.0) gm/dl Albumin/Globulin Ratio (0.9-2) Vitamin B12 (180-914) pg/ml Folate (>5.38) ng/ml TSH (0.300-4.500) uIu/ml Urine Color Urine Appearance (Clear) Urine pH (4.5-7.5) Ur Specific [place] (1.000-1.030) Urine Protein (Negative) Urine Glucose (UA) (Negative) Urine Ketones (Negative) Urine Blood (Negative) Urine Nitrite (Negative) Urine Bilirubin (Negative) Urine Urobilinogen (Negative) Ur Leukocyte Esterase (Negative) Urine WBC (Auto) (0-5) /hpf Urine RBC (Auto) (0-4) /hpf U Hyaline Cast (Auto) (0-5) /lpf U Epithel Cells (Auto) (0-5) /lpf Urine Bacteria (Auto) (Negative) Urine Yeast (None Prsent) Urine Osmolality (500-800) mOsm/kg Ur Random Sodium mmol/L Glenvil (0.6-1.2) mmol/L Enterobacterales (PCR) (NotDetected) E. coli (PCR) (NotDetected) SARS-CoV-2, RNA, NAAT (NEGATIVE) mcr-1 Colistin Res Gene PCR (NotDetected) blaIMP Car res Gene PCR (NotDetected) KPC-Carbap Res Gene PCR (NotDetected) blaNDM Car Res Gene PCR (NotDetected) OXA-48 Carbapenem Resis Gene (PCR) (NotDetected) blaVIM Car Res Gene PCR (NotDetected) CTX-M Gene Resistance (PCR) (NotDetected) Bld Cult ID Panel PCR (NotDetected) Blood Type Antibody Screen Crossmatch 03/31/23 03/31/23 03/31/23 Range/Units 21:07 21:07 21:07 WBC (4.8-10.8) K/ul RBC (4.20-5.40) M/uL Hgb (12.0-16.0) g/dl Hct (37.0-47.0) % MCV (80.0-100.0) fL MCH (25.0-34.0) pg MCHC (32.0-36.0) g/dL RDW Std Deviation (36.4-46.3) fL RDW Coeff of Lili (11.5-14.5) % Plt Count (130-400) K/uL MPV (9.4-12.4) fL Immature Gran % (Auto) % Neut % (Auto) % Lymph % (Auto) % [place] % (Auto) % Eos % (Auto) % Baso % (Auto) % Reticulocyte % (Auto) 4.6 H (0.5-2.0) % Neut # (Auto) (1.40-6.50) K/uL Lymph # (Auto) (1.2-3.4) K/uL [place] # (Auto) (0.11-0.59) K/uL Eos # (Auto) (0-0.50) K/uL Baso # (Auto) (0-0.2) K/uL Reticulocyte # 0.12 H (0.02-0.10) 10^6/uL Immature Gran # (Auto) (0.01-0.20) K/uL Absolute Nucleated RBC (0-0.12) K/uL Nucleated RBC % (auto) % Anisocytosis Tear Drop Cells Ovalocytes PT (9.0-12.0) Seconds INR (0.9-1.1) APTT (21.0-31.0) Seconds PTT Ratio ABG pH (7.35-7.45) ABG pCO2 (35-46) mmHg ABG pO2 (80-95) mmHg ABG HCO3 (19-24) mmol/L ABG O2 Saturation (90-95) % ABG Base Excess (-9-1.8) mEq/L Girma Test (Pos) VBG pH (7.36-7.41) VBG pCO2 (38-50) mmHg VBG pO2 mmHg VBG HCO3 mmol/L VBG O2 Saturation % VBG Base Excess mEq/L Oxygen Given Sodium (136-145) mmol/L Potassium (3.5-5.1) mmol/L Chloride (98-107) mmol/L Carbon Dioxide (21-32) mmol/L Anion Gap (3-11) BUN (6-23) mg/dl Creatinine (0.6-1.2) mg/dl Est Cr Clr Drug Dosing Est GFR ( Amer) ml/min Est GFR (Non-Af Amer) ml/min BUN/Creatinine Ratio (10-20) Glucose (70-99(Fasting)) mg/dl POC Glucose (70-99) mg/dl Estimat Average Glucose mg/dl Hemoglobin A1c (4.5-5.6) % Osmolality (280-300) mOsm/kg Lactate (0.4-2.0) mmol/L Calcium (8.6-10.3) mg/dl Magnesium (1.7-2.4) mg/dl Iron (35-150) mcg/dl Transferrin (200-360) mg/dl Ferritin (8-388) ng/ml Total Bilirubin (0.2-1.0) mg/dl AST (13-39) U/L ALT (7-52) U/L Alkaline Phosphatase (34-104) U/L Ammonia (18-72) umol/L Total Creatine Kinase (26-192) U/L Troponin I High Sens (0-14) pg/ml Total Protein (6.0-8.3) gm/dl Albumin (3.4-5.0) gm/dl Globulin (2.5-4.0) gm/dl Albumin/Globulin Ratio (0.9-2) Vitamin B12 305 (180-914) pg/ml Folate 13.15 (>5.38) ng/ml TSH (0.300-4.500) uIu/ml Urine Color Urine Appearance (Clear) Urine pH (4.5-7.5) Ur Specific [place] (1.000-1.030) Urine Protein (Negative) Urine Glucose (UA) (Negative) Urine Ketones (Negative) Urine Blood (Negative) Urine Nitrite (Negative) Urine Bilirubin (Negative) Urine Urobilinogen (Negative) Ur Leukocyte Esterase (Negative) Urine WBC (Auto) (0-5) /hpf Urine RBC (Auto) (0-4) /hpf U Hyaline Cast (Auto) (0-5) /lpf U Epithel Cells (Auto) (0-5) /lpf Urine Bacteria (Auto) (Negative) Urine Yeast (None Prsent) Urine Osmolality (500-800) mOsm/kg Ur Random Sodium mmol/L Glenvil 0.1 L (0.6-1.2) mmol/L Enterobacterales (PCR) (NotDetected) E. coli (PCR) (NotDetected) SARS-CoV-2, RNA, NAAT (NEGATIVE) mcr-1 Colistin Res Gene PCR (NotDetected) blaIMP Car res Gene PCR (NotDetected) KPC-Carbap Res Gene PCR (NotDetected) blaNDM Car Res Gene PCR (NotDetected) OXA-48 Carbapenem Resis Gene (PCR) (NotDetected) blaVIM Car Res Gene PCR (NotDetected) CTX-M Gene Resistance (PCR) (NotDetected) Bld Cult ID Panel PCR (NotDetected) Blood Type Antibody Screen Crossmatch 03/31/23 03/31/23 03/31/23 Range/Units 21:07 21:07 21:07 WBC (4.8-10.8) K/ul RBC (4.20-5.40) M/uL Hgb (12.0-16.0) g/dl Hct (37.0-47.0) % MCV (80.0-100.0) fL MCH (25.0-34.0) pg MCHC (32.0-36.0) g/dL RDW Std Deviation (36.4-46.3) fL RDW Coeff of Lili (11.5-14.5) % Plt Count (130-400) K/uL MPV (9.4-12.4) fL Immature Gran % (Auto) % Neut % (Auto) % Lymph % (Auto) % [place] % (Auto) % Eos % (Auto) % Baso % (Auto) % Reticulocyte % (Auto) (0.5-2.0) % Neut # (Auto) (1.40-6.50) K/uL Lymph # (Auto) (1.2-3.4) K/uL [place] # (Auto) (0.11-0.59) K/uL Eos # (Auto) (0-0.50) K/uL Baso # (Auto) (0-0.2) K/uL Reticulocyte # (0.02-0.10) 10^6/uL Immature Gran # (Auto) (0.01-0.20) K/uL Absolute Nucleated RBC (0-0.12) K/uL Nucleated RBC % (auto) % Anisocytosis Tear Drop Cells Ovalocytes PT (9.0-12.0) Seconds INR (0.9-1.1) APTT (21.0-31.0) Seconds PTT Ratio ABG pH (7.35-7.45) ABG pCO2 (35-46) mmHg ABG pO2 (80-95) mmHg ABG HCO3 (19-24) mmol/L ABG O2 Saturation (90-95) % ABG Base Excess (-9-1.8) mEq/L Girma Test (Pos) VBG pH (7.36-7.41) VBG pCO2 (38-50) mmHg VBG pO2 mmHg VBG HCO3 mmol/L VBG O2 Saturation % VBG Base Excess mEq/L Oxygen Given Sodium 127 L (136-145) mmol/L Potassium 4.3 (3.5-5.1) mmol/L Chloride 102 (98-107) mmol/L Carbon Dioxide 20 L (21-32) mmol/L Anion Gap 5 (3-11) BUN 25 H (6-23) mg/dl Creatinine 0.60 (0.6-1.2) mg/dl Est Cr Clr Drug Dosing Not Reportable Est GFR ( Amer) 102.6 ml/min Est GFR (Non-Af Amer) 88.5 ml/min BUN/Creatinine Ratio 41.7 H (10-20) Glucose 347 H* (70-99(Fasting)) mg/dl POC Glucose (70-99) mg/dl Estimat Average Glucose mg/dl Hemoglobin A1c (4.5-5.6) % Osmolality 288 (280-300) mOsm/kg Lactate (0.4-2.0) mmol/L Calcium 8.1 L (8.6-10.3) mg/dl Magnesium (1.7-2.4) mg/dl Iron < 10 L (35-150) mcg/dl Transferrin 209 (200-360) mg/dl Ferritin 79.6 (8-388) ng/ml Total Bilirubin (0.2-1.0) mg/dl AST (13-39) U/L ALT (7-52) U/L Alkaline Phosphatase (34-104) U/L Ammonia 23.0 (18-72) umol/L Total Creatine Kinase (26-192) U/L Troponin I High Sens (0-14) pg/ml Total Protein (6.0-8.3) gm/dl Albumin (3.4-5.0) gm/dl Globulin (2.5-4.0) gm/dl Albumin/Globulin Ratio (0.9-2) Vitamin B12 (180-914) pg/ml Folate (>5.38) ng/ml TSH (0.300-4.500) uIu/ml Urine Color Urine Appearance (Clear) Urine pH (4.5-7.5) Ur Specific [place] (1.000-1.030) Urine Protein (Negative) Urine Glucose (UA) (Negative) Urine Ketones (Negative) Urine Blood (Negative) Urine Nitrite (Negative) Urine Bilirubin (Negative) Urine Urobilinogen (Negative) Ur Leukocyte Esterase (Negative) Urine WBC (Auto) (0-5) /hpf Urine RBC (Auto) (0-4) /hpf U Hyaline Cast (Auto) (0-5) /lpf U Epithel Cells (Auto) (0-5) /lpf Urine Bacteria (Auto) (Negative) Urine Yeast (None Prsent) Urine Osmolality (500-800) mOsm/kg Ur Random Sodium mmol/L Glenvil (0.6-1.2) mmol/L Enterobacterales (PCR) (NotDetected) E. coli (PCR) (NotDetected) SARS-CoV-2, RNA, NAAT (NEGATIVE) mcr-1 Colistin Res Gene PCR (NotDetected) blaIMP Car res Gene PCR (NotDetected) KPC-Carbap Res Gene PCR (NotDetected) blaNDM Car Res Gene PCR (NotDetected) OXA-48 Carbapenem Resis Gene (PCR) (NotDetected) blaVIM Car Res Gene PCR (NotDetected) CTX-M Gene Resistance (PCR) (NotDetected) Bld Cult ID Panel PCR (NotDetected) Blood Type Antibody Screen Crossmatch 03/31/23 03/31/23 03/31/23 Range/Units 21:07 20:46 18:05 WBC (4.8-10.8) K/ul RBC (4.20-5.40) M/uL Hgb (12.0-16.0) g/dl Hct (37.0-47.0) % MCV (80.0-100.0) fL MCH (25.0-34.0) pg MCHC (32.0-36.0) g/dL RDW Std Deviation (36.4-46.3) fL RDW Coeff of Lili (11.5-14.5) % Plt Count (130-400) K/uL MPV (9.4-12.4) fL Immature Gran % (Auto) % Neut % (Auto) % Lymph % (Auto) % [place] % (Auto) % Eos % (Auto) % Baso % (Auto) % Reticulocyte % (Auto) (0.5-2.0) % Neut # (Auto) (1.40-6.50) K/uL Lymph # (Auto) (1.2-3.4) K/uL [place] # (Auto) (0.11-0.59) K/uL Eos # (Auto) (0-0.50) K/uL Baso # (Auto) (0-0.2) K/uL Reticulocyte # (0.02-0.10) 10^6/uL Immature Gran # (Auto) (0.01-0.20) K/uL Absolute Nucleated RBC (0-0.12) K/uL Nucleated RBC % (auto) % Anisocytosis Tear Drop Cells Ovalocytes PT (9.0-12.0) Seconds INR (0.9-1.1) APTT (21.0-31.0) Seconds PTT Ratio ABG pH (7.35-7.45) ABG pCO2 (35-46) mmHg ABG pO2 (80-95) mmHg ABG HCO3 (19-24) mmol/L ABG O2 Saturation (90-95) % ABG Base Excess (-9-1.8) mEq/L Girma Test (Pos) VBG pH 7.41 (7.36-7.41) VBG pCO2 27 L (38-50) mmHg VBG pO2 48 mmHg VBG HCO3 17 mmol/L VBG O2 Saturation 79.3 % VBG Base Excess -6.0 mEq/L Oxygen Given Sodium (136-145) mmol/L Potassium (3.5-5.1) mmol/L Chloride (98-107) mmol/L Carbon Dioxide (21-32) mmol/L Anion Gap (3-11) BUN (6-23) mg/dl Creatinine (0.6-1.2) mg/dl Est Cr Clr Drug Dosing Est GFR ( Amer) ml/min Est GFR (Non-Af Amer) ml/min BUN/Creatinine Ratio (10-20) Glucose (70-99(Fasting)) mg/dl POC Glucose 400 H* (70-99) mg/dl Estimat Average Glucose mg/dl Hemoglobin A1c (4.5-5.6) % Osmolality (280-300) mOsm/kg Lactate (0.4-2.0) mmol/L Calcium (8.6-10.3) mg/dl Magnesium (1.7-2.4) mg/dl Iron (35-150) mcg/dl Transferrin (200-360) mg/dl Ferritin (8-388) ng/ml Total Bilirubin (0.2-1.0) mg/dl AST (13-39) U/L ALT (7-52) U/L Alkaline Phosphatase (34-104) U/L Ammonia (18-72) umol/L Total Creatine Kinase (26-192) U/L Troponin I High Sens (0-14) pg/ml Total Protein (6.0-8.3) gm/dl Albumin (3.4-5.0) gm/dl Globulin (2.5-4.0) gm/dl Albumin/Globulin Ratio (0.9-2) Vitamin B12 (180-914) pg/ml Folate (>5.38) ng/ml TSH (0.300-4.500) uIu/ml Urine Color Urine Appearance (Clear) Urine pH (4.5-7.5) Ur Specific [place] (1.000-1.030) Urine Protein (Negative) Urine Glucose (UA) (Negative) Urine Ketones (Negative) Urine Blood (Negative) Urine Nitrite (Negative) Urine Bilirubin (Negative) Urine Urobilinogen (Negative) Ur Leukocyte Esterase (Negative) Urine WBC (Auto) (0-5) /hpf Urine RBC (Auto) (0-4) /hpf U Hyaline Cast (Auto) (0-5) /lpf U Epithel Cells (Auto) (0-5) /lpf Urine Bacteria (Auto) (Negative) Urine Yeast (None Prsent) Urine Osmolality (500-800) mOsm/kg Ur Random Sodium mmol/L Glenvil (0.6-1.2) mmol/L Enterobacterales (PCR) (NotDetected) E. coli (PCR) (NotDetected) SARS-CoV-2, RNA, NAAT (NEGATIVE) mcr-1 Colistin Res Gene PCR (NotDetected) blaIMP Car res Gene PCR (NotDetected) KPC-Carbap Res Gene PCR (NotDetected) blaNDM Car Res Gene PCR (NotDetected) OXA-48 Carbapenem Resis Gene (PCR) (NotDetected) blaVIM Car Res Gene PCR (NotDetected) CTX-M Gene Resistance (PCR) (NotDetected) Bld Cult ID Panel PCR (NotDetected) Blood Type O Positive Antibody Screen NEGATIVE Crossmatch See Detail 03/31/23 03/31/23 03/31/23 Range/Units 18:05 17:59 17:48 WBC (4.8-10.8) K/ul RBC (4.20-5.40) M/uL Hgb (12.0-16.0) g/dl Hct (37.0-47.0) % MCV (80.0-100.0) fL MCH (25.0-34.0) pg MCHC (32.0-36.0) g/dL RDW Std Deviation (36.4-46.3) fL RDW Coeff of Lili (11.5-14.5) % Plt Count (130-400) K/uL MPV (9.4-12.4) fL Immature Gran % (Auto) % Neut % (Auto) % Lymph % (Auto) % [place] % (Auto) % Eos % (Auto) % Baso % (Auto) % Reticulocyte % (Auto) (0.5-2.0) % Neut # (Auto) (1.40-6.50) K/uL Lymph # (Auto) (1.2-3.4) K/uL [place] # (Auto) (0.11-0.59) K/uL Eos # (Auto) (0-0.50) K/uL Baso # (Auto) (0-0.2) K/uL Reticulocyte # (0.02-0.10) 10^6/uL Immature Gran # (Auto) (0.01-0.20) K/uL Absolute Nucleated RBC (0-0.12) K/uL Nucleated RBC % (auto) % Anisocytosis Tear Drop Cells Ovalocytes PT (9.0-12.0) Seconds INR (0.9-1.1) APTT (21.0-31.0) Seconds PTT Ratio ABG pH (7.35-7.45) ABG pCO2 (35-46) mmHg ABG pO2 (80-95) mmHg ABG HCO3 (19-24) mmol/L ABG O2 Saturation (90-95) % ABG Base Excess (-9-1.8) mEq/L Girma Test (Pos) VBG pH (7.36-7.41) VBG pCO2 (38-50) mmHg VBG pO2 mmHg VBG HCO3 mmol/L VBG O2 Saturation % VBG Base Excess mEq/L Oxygen Given Sodium (136-145) mmol/L Potassium (3.5-5.1) mmol/L Chloride (98-107) mmol/L Carbon Dioxide (21-32) mmol/L Anion Gap (3-11) BUN (6-23) mg/dl Creatinine (0.6-1.2) mg/dl Est Cr Clr Drug Dosing Est GFR ( Amer) ml/min Est GFR (Non-Af Amer) ml/min BUN/Creatinine Ratio (10-20) Glucose (70-99(Fasting)) mg/dl POC Glucose (70-99) mg/dl Estimat Average Glucose mg/dl Hemoglobin A1c (4.5-5.6) % Osmolality (280-300) mOsm/kg Lactate 1.1 (0.4-2.0) mmol/L Calcium (8.6-10.3) mg/dl Magnesium (1.7-2.4) mg/dl Iron (35-150) mcg/dl Transferrin (200-360) mg/dl Ferritin (8-388) ng/ml Total Bilirubin (0.2-1.0) mg/dl AST (13-39) U/L ALT (7-52) U/L Alkaline Phosphatase (34-104) U/L Ammonia (18-72) umol/L Total Creatine Kinase (26-192) U/L Troponin I High Sens (0-14) pg/ml Total Protein (6.0-8.3) gm/dl Albumin (3.4-5.0) gm/dl Globulin (2.5-4.0) gm/dl Albumin/Globulin Ratio (0.9-2) Vitamin B12 (180-914) pg/ml Folate (>5.38) ng/ml TSH (0.300-4.500) uIu/ml Urine Color Yellow Urine Appearance Clear (Clear) Urine pH 5.5 (4.5-7.5) Ur Specific [place] 1.024 (1.000-1.030) Urine Protein 1+ H (Negative) Urine Glucose (UA) 3+ H (Negative) Urine Ketones 2+ H (Negative) Urine Blood 1+ H (Negative) Urine Nitrite Negative (Negative) Urine Bilirubin Negative (Negative) Urine Urobilinogen Negative (Negative) Ur Leukocyte Esterase 1+ H (Negative) Urine WBC (Auto) 10-30 H (0-5) /hpf Urine RBC (Auto) 0-4 (0-4) /hpf U Hyaline Cast (Auto) 1-5 (0-5) /lpf U Epithel Cells (Auto) 10-20 H (0-5) /lpf Urine Bacteria (Auto) 2+ H (Negative) Urine Yeast Present A (None Prsent) Urine Osmolality (500-800) mOsm/kg Ur Random Sodium mmol/L Glenvil (0.6-1.2) mmol/L Enterobacterales (PCR) DETECTED A (NotDetected) E. coli (PCR) DETECTED A (NotDetected) SARS-CoV-2, RNA, NAAT (NEGATIVE) mcr-1 Colistin Res Gene PCR Not Detected (NotDetected) blaIMP Car res Gene PCR Not Detected (NotDetected) KPC-Carbap Res Gene PCR Not Detected (NotDetected) blaNDM Car Res Gene PCR Not Detected (NotDetected) OXA-48 Carbapenem Resis Gene (PCR) Not Detected (NotDetected) blaVIM Car Res Gene PCR Not Detected (NotDetected) CTX-M Gene Resistance (PCR) Not Detected (NotDetected) Bld Cult ID Panel PCR See PCR Comment (NotDetected) Blood Type Antibody Screen Crossmatch 03/31/23 03/31/23 03/31/23 Range/Units 17:48 17:35 17:28 WBC (4.8-10.8) K/ul RBC (4.20-5.40) M/uL Hgb (12.0-16.0) g/dl Hct (37.0-47.0) % MCV (80.0-100.0) fL MCH (25.0-34.0) pg MCHC (32.0-36.0) g/dL RDW Std Deviation (36.4-46.3) fL RDW Coeff of Lili (11.5-14.5) % Plt Count (130-400) K/uL MPV (9.4-12.4) fL Immature Gran % (Auto) % Neut % (Auto) % Lymph % (Auto) % [place] % (Auto) % Eos % (Auto) % Baso % (Auto) % Reticulocyte % (Auto) (0.5-2.0) % Neut # (Auto) (1.40-6.50) K/uL Lymph # (Auto) (1.2-3.4) K/uL [place] # (Auto) (0.11-0.59) K/uL Eos # (Auto) (0-0.50) K/uL Baso # (Auto) (0-0.2) K/uL Reticulocyte # (0.02-0.10) 10^6/uL Immature Gran # (Auto) (0.01-0.20) K/uL Absolute Nucleated RBC (0-0.12) K/uL Nucleated RBC % (auto) % Anisocytosis Tear Drop Cells Ovalocytes PT (9.0-12.0) Seconds INR (0.9-1.1) APTT (21.0-31.0) Seconds PTT Ratio ABG pH (7.35-7.45) ABG pCO2 (35-46) mmHg ABG pO2 (80-95) mmHg ABG HCO3 (19-24) mmol/L ABG O2 Saturation (90-95) % ABG Base Excess (-9-1.8) mEq/L Girma Test (Pos) VBG pH (7.36-7.41) VBG pCO2 (38-50) mmHg VBG pO2 mmHg VBG HCO3 mmol/L VBG O2 Saturation % VBG Base Excess mEq/L Oxygen Given Sodium (136-145) mmol/L Potassium (3.5-5.1) mmol/L Chloride (98-107) mmol/L Carbon Dioxide (21-32) mmol/L Anion Gap (3-11) BUN (6-23) mg/dl Creatinine (0.6-1.2) mg/dl Est Cr Clr Drug Dosing Est GFR ( Amer) ml/min Est GFR (Non-Af Amer) ml/min BUN/Creatinine Ratio (10-20) Glucose (70-99(Fasting)) mg/dl POC Glucose 552 H* (70-99) mg/dl Estimat Average Glucose 128 mg/dl Hemoglobin A1c 6.1 H (4.5-5.6) % Osmolality (280-300) mOsm/kg Lactate (0.4-2.0) mmol/L Calcium (8.6-10.3) mg/dl Magnesium (1.7-2.4) mg/dl Iron (35-150) mcg/dl Transferrin (200-360) mg/dl Ferritin (8-388) ng/ml Total Bilirubin (0.2-1.0) mg/dl AST (13-39) U/L ALT (7-52) U/L Alkaline Phosphatase (34-104) U/L Ammonia (18-72) umol/L Total Creatine Kinase (26-192) U/L Troponin I High Sens (0-14) pg/ml Total Protein (6.0-8.3) gm/dl Albumin (3.4-5.0) gm/dl Globulin (2.5-4.0) gm/dl Albumin/Globulin Ratio (0.9-2) Vitamin B12 (180-914) pg/ml Folate (>5.38) ng/ml TSH (0.300-4.500) uIu/ml Urine Color Urine Appearance (Clear) Urine pH (4.5-7.5) Ur Specific [place] (1.000-1.030) Urine Protein (Negative) Urine Glucose (UA) (Negative) Urine Ketones (Negative) Urine Blood (Negative) Urine Nitrite (Negative) Urine Bilirubin (Negative) Urine Urobilinogen (Negative) Ur Leukocyte Esterase (Negative) Urine WBC (Auto) (0-5) /hpf Urine RBC (Auto) (0-4) /hpf U Hyaline Cast (Auto) (0-5) /lpf U Epithel Cells (Auto) (0-5) /lpf Urine Bacteria (Auto) (Negative) Urine Yeast (None Prsent) Urine Osmolality (500-800) mOsm/kg Ur Random Sodium mmol/L Glenvil (0.6-1.2) mmol/L Enterobacterales (PCR) (NotDetected) E. coli (PCR) (NotDetected) SARS-CoV-2, RNA, NAAT NEGATIVE (NEGATIVE) mcr-1 Colistin Res Gene PCR (NotDetected) blaIMP Car res Gene PCR (NotDetected) KPC-Carbap Res Gene PCR (NotDetected) blaNDM Car Res Gene PCR (NotDetected) OXA-48 Carbapenem Resis Gene (PCR) (NotDetected) blaVIM Car Res Gene PCR (NotDetected) CTX-M Gene Resistance (PCR) (NotDetected) Bld Cult ID Panel PCR (NotDetected) Blood Type Antibody Screen Crossmatch 03/31/23 03/31/23 03/31/23 Range/Units 17:28 17:28 17:28 WBC (4.8-10.8) K/ul RBC (4.20-5.40) M/uL Hgb (12.0-16.0) g/dl Hct (37.0-47.0) % MCV (80.0-100.0) fL MCH (25.0-34.0) pg MCHC (32.0-36.0) g/dL RDW Std Deviation (36.4-46.3) fL RDW Coeff of Lili (11.5-14.5) % Plt Count (130-400) K/uL MPV (9.4-12.4) fL Immature Gran % (Auto) % Neut % (Auto) % Lymph % (Auto) % [place] % (Auto) % Eos % (Auto) % Baso % (Auto) % Reticulocyte % (Auto) (0.5-2.0) % Neut # (Auto) (1.40-6.50) K/uL Lymph # (Auto) (1.2-3.4) K/uL [place] # (Auto) (0.11-0.59) K/uL Eos # (Auto) (0-0.50) K/uL Baso # (Auto) (0-0.2) K/uL Reticulocyte # (0.02-0.10) 10^6/uL Immature Gran # (Auto) (0.01-0.20) K/uL Absolute Nucleated RBC (0-0.12) K/uL Nucleated RBC % (auto) % Anisocytosis Tear Drop Cells Ovalocytes PT 12.0 (9.0-12.0) Seconds INR 1.1 (0.9-1.1) APTT 30.1 (21.0-31.0) Seconds PTT Ratio 1.1 ABG pH (7.35-7.45) ABG pCO2 (35-46) mmHg ABG pO2 (80-95) mmHg ABG HCO3 (19-24) mmol/L ABG O2 Saturation (90-95) % ABG Base Excess (-9-1.8) mEq/L Girma Test (Pos) VBG pH (7.36-7.41) VBG pCO2 (38-50) mmHg VBG pO2 mmHg VBG HCO3 mmol/L VBG O2 Saturation % VBG Base Excess mEq/L Oxygen Given Sodium 122 L (136-145) mmol/L Potassium 4.2 (3.5-5.1) mmol/L Chloride 93 L (98-107) mmol/L Carbon Dioxide 16 L (21-32) mmol/L Anion Gap 13 H (3-11) BUN 29 H (6-23) mg/dl Creatinine 0.61 (0.6-1.2) mg/dl Est Cr Clr Drug Dosing Not Reportable Est GFR ( Amer) 102.1 ml/min Est GFR (Non-Af Amer) 88.1 ml/min BUN/Creatinine Ratio 47.5 H (10-20) Glucose 527 H* (70-99(Fasting)) mg/dl POC Glucose (70-99) mg/dl Estimat Average Glucose mg/dl Hemoglobin A1c (4.5-5.6) % Osmolality (280-300) mOsm/kg Lactate (0.4-2.0) mmol/L Calcium 8.4 L (8.6-10.3) mg/dl Magnesium 1.7 (1.7-2.4) mg/dl Iron (35-150) mcg/dl Transferrin (200-360) mg/dl Ferritin (8-388) ng/ml Total Bilirubin 0.6 (0.2-1.0) mg/dl AST 29 (13-39) U/L ALT 31 (7-52) U/L Alkaline Phosphatase 119 H (34-104) U/L Ammonia (18-72) umol/L Total Creatine Kinase 187 (26-192) U/L Troponin I High Sens 23.9 H (0-14) pg/ml Total Protein 5.9 L (6.0-8.3) gm/dl Albumin 3.3 L (3.4-5.0) gm/dl Globulin 2.6 (2.5-4.0) gm/dl Albumin/Globulin Ratio 1.3 (0.9-2) Vitamin B12 (180-914) pg/ml Folate (>5.38) ng/ml TSH 3.127 (0.300-4.500) uIu/ml Urine Color Urine Appearance (Clear) Urine pH (4.5-7.5) Ur Specific [place] (1.000-1.030) Urine Protein (Negative) Urine Glucose (UA) (Negative) Urine Ketones (Negative) Urine Blood (Negative) Urine Nitrite (Negative) Urine Bilirubin (Negative) Urine Urobilinogen (Negative) Ur Leukocyte Esterase (Negative) Urine WBC (Auto) (0-5) /hpf Urine RBC (Auto) (0-4) /hpf U Hyaline Cast (Auto) (0-5) /lpf U Epithel Cells (Auto) (0-5) /lpf Urine Bacteria (Auto) (Negative) Urine Yeast (None Prsent) Urine Osmolality (500-800) mOsm/kg Ur Random Sodium mmol/L Glenvil (0.6-1.2) mmol/L Enterobacterales (PCR) (NotDetected) E. coli (PCR) (NotDetected) SARS-CoV-2, RNA, NAAT (NEGATIVE) mcr-1 Colistin Res Gene PCR (NotDetected) blaIMP Car res Gene PCR (NotDetected) KPC-Carbap Res Gene PCR (NotDetected) blaNDM Car Res Gene PCR (NotDetected) OXA-48 Carbapenem Resis Gene (PCR) (NotDetected) blaVIM Car Res Gene PCR (NotDetected) CTX-M Gene Resistance (PCR) (NotDetected) Bld Cult ID Panel PCR (NotDetected) Blood Type Antibody Screen Crossmatch 03/31/23 Range/Units 17:28 WBC 6.23 (4.8-10.8) K/ul RBC 2.62 L (4.20-5.40) M/uL Hgb 7.0 L (12.0-16.0) g/dl Hct 22.9 L (37.0-47.0) % MCV 87.4 (80.0-100.0) fL MCH 26.7 (25.0-34.0) pg MCHC 30.6 L (32.0-36.0) g/dL RDW Std Deviation 61.5 H (36.4-46.3) fL RDW Coeff of Lili 19.3 H (11.5-14.5) % Plt Count 160 (130-400) K/uL MPV 10.3 (9.4-12.4) fL Immature Gran % (Auto) 1.0 % Neut % (Auto) 84.7 % Lymph % (Auto) 4.7 % [place] % (Auto) 9.3 % Eos % (Auto) 0.0 % Baso % (Auto) 0.3 % Reticulocyte % (Auto) (0.5-2.0) % Neut # (Auto) 5.28 (1.40-6.50) K/uL Lymph # (Auto) 0.29 L (1.2-3.4) K/uL [place] # (Auto) 0.58 (0.11-0.59) K/uL Eos # (Auto) 0.00 (0-0.50) K/uL Baso # (Auto) 0.02 (0-0.2) K/uL Reticulocyte # (0.02-0.10) 10^6/uL Immature Gran # (Auto) 0.06 (0.01-0.20) K/uL Absolute Nucleated RBC 0.02 (0-0.12) K/uL Nucleated RBC % (auto) 0.3 % Anisocytosis Present Tear Drop Cells 1+ Ovalocytes 1+ PT (9.0-12.0) Seconds INR (0.9-1.1) APTT (21.0-31.0) Seconds PTT Ratio ABG pH (7.35-7.45) ABG pCO2 (35-46) mmHg ABG pO2 (80-95) mmHg ABG HCO3 (19-24) mmol/L ABG O2 Saturation (90-95) % ABG Base Excess (-9-1.8) mEq/L Girma Test (Pos) VBG pH (7.36-7.41) VBG pCO2 (38-50) mmHg VBG pO2 mmHg VBG HCO3 mmol/L VBG O2 Saturation % VBG Base Excess mEq/L Oxygen Given Sodium (136-145) mmol/L Potassium (3.5-5.1) mmol/L Chloride (98-107) mmol/L Carbon Dioxide (21-32) mmol/L Anion Gap (3-11) BUN (6-23) mg/dl Creatinine (0.6-1.2) mg/dl Est Cr Clr Drug Dosing Est GFR ( Amer) ml/min Est GFR (Non-Af Amer) ml/min BUN/Creatinine Ratio (10-20) Glucose (70-99(Fasting)) mg/dl POC Glucose (70-99) mg/dl Estimat Average Glucose mg/dl Hemoglobin A1c (4.5-5.6) % Osmolality (280-300) mOsm/kg Lactate (0.4-2.0) mmol/L Calcium (8.6-10.3) mg/dl Magnesium (1.7-2.4) mg/dl Iron (35-150) mcg/dl Transferrin (200-360) mg/dl Ferritin (8-388) ng/ml Total Bilirubin (0.2-1.0) mg/dl AST (13-39) U/L ALT (7-52) U/L Alkaline Phosphatase (34-104) U/L Ammonia (18-72) umol/L Total Creatine Kinase (26-192) U/L Troponin I High Sens (0-14) pg/ml Total Protein (6.0-8.3) gm/dl Albumin (3.4-5.0) gm/dl Globulin (2.5-4.0) gm/dl Albumin/Globulin Ratio (0.9-2) Vitamin B12 (180-914) pg/ml Folate (>5.38) ng/ml TSH (0.300-4.500) uIu/ml Urine Color Urine Appearance (Clear) Urine pH (4.5-7.5) Ur Specific [place] (1.000-1.030) Urine Protein (Negative) Urine Glucose (UA) (Negative) Urine Ketones (Negative) Urine Blood (Negative) Urine Nitrite (Negative) Urine Bilirubin (Negative) Urine Urobilinogen (Negative) Ur Leukocyte Esterase (Negative) Urine WBC (Auto) (0-5) /hpf Urine RBC (Auto) (0-4) /hpf U Hyaline Cast (Auto) (0-5) /lpf U Epithel Cells (Auto) (0-5) /lpf Urine Bacteria (Auto) (Negative) Urine Yeast (None Prsent) Urine Osmolality (500-800) mOsm/kg Ur Random Sodium mmol/L Glenvil (0.6-1.2) mmol/L Enterobacterales (PCR) (NotDetected) E. coli (PCR) (NotDetected) SARS-CoV-2, RNA, NAAT (NEGATIVE) mcr-1 Colistin Res Gene PCR (NotDetected) blaIMP Car res Gene PCR (NotDetected) KPC-Carbap Res Gene PCR (NotDetected) blaNDM Car Res Gene PCR (NotDetected) OXA-48 Carbapenem Resis Gene (PCR) (NotDetected) blaVIM Car Res Gene PCR (NotDetected) CTX-M Gene Resistance (PCR) (NotDetected) Bld Cult ID Panel PCR (NotDetected) Blood Type Antibody Screen Crossmatch Medications Administered Current Inpatient Medications Acetaminophen (Acetaminophen 325 Mg Tab) 325 mg PO Q6 PRN PRN Reason: Pain Stop: 05/01/23 02:19 Aripiprazole (Aripiprazole 5 Mg Tab) 5 mg PO QAM VALERIE Stop: 05/01/23 08:59 Last Admin: 04/01/23 09:13 Dose: 5 mg Dextrose (Dextrose 50% 50 Ml Syringe) 25 - 50 ml IV UD PRN; Protocol PRN Reason: Hypoglycemia Protocol Stop: 05/01/23 00:21 Duloxetine HCl (Duloxetine Hcl 60 Mg Cap) 60 mg PO UD VALERIE Stop: 05/01/23 02:19 Glucagon (Glucagon For Inj 1 Mg Vial) 1 mg SQ UD PRN; Protocol PRN Reason: Hypoglycemia Protocol Stop: 05/01/23 00:21 Glucose (Glucose 10 Tab/Tube) 4 - 8 tab PO UD PRN; Protocol PRN Reason: Hypoglycemia Treatment Stop: 05/01/23 00:21 Glucose (Glucose 40% Gel 15 Gm Tube) 15 - 30 gm PO UD PRN; Protocol PRN Reason: Hypoglycemia Protocol Stop: 05/01/23 00:21 Sodium Chloride (Nss) 250 mls @ 15 mls/hr IV .[id number] PRN PRN Reason: For Transfusion Duration Stop: 04/01/23 11:29 Cefepime HCl 2,000 mg/ Syringe 20 mls @ 5 mls/min IV Q8H VALERIE; Protocol Stop: 04/11/23 09:59 Promethazine HCl 6.25 mg/ (Sodium Chloride) 50.25 mls @ 201 mls/hr IV Q6H PRN PRN Reason: Nausea And Vomiting Stop: 05/01/23 03:20 Last Infusion: 04/01/23 04:11 Dose: Infused Insulin Human Regular 250 (units/ Sodium Chloride) 250 mls @ 2.7 mls/hr IV .Q24H VALERIE; Protocol Stop: 05/01/23 10:14 Last Admin: 04/01/23 10:36 Dose: 2.7 units/hr, 2.7 mls/hr Insulin Aspart (Insulin Aspart Per Unit Charge) 0 units SC ACHS [facility] Stop: 05/01/23 11:29 Latanoprost (Latanoprost 0.005% Op Soln 2.5 Ml Btl) 1 drops OP HS [facility] Stop: 05/01/23 20:59 Levetiracetam (Levetiracetam 500 Mg Tab) 1,000 mg PO AMHS VALERIE Stop: 05/01/23 08:59 Last Admin: 04/01/23 09:13 Dose: 1,000 mg Levothyroxine Sodium (Levothyroxine Sodium 25 Mcg Tablet) 25 mcg PO MoTuWeTh FrSa@0630 [facility] Stop: 05/01/23 06:29 Last Admin: 04/01/23 05:28 Dose: Not Given Levothyroxine Sodium (Levothyroxine Sodium 50 Mcg Tablet) 50 mcg PO Delgado@0630 [facility] Stop: 05/05/23 06:29 Glenvil Carbonate (Glenvil Carbonate 300 Mg Tab) 300 mg PO [facility] Stop: 05/01/23 20:59 Losartan Potassium (Losartan Potassium 50 Mg Tab) [facility] [place]: 05/01/23 08:59 Last Admin: 04/01/23 09:12 Dose: 50 mg Miscellaneous (Carbohydrates For Hypoglycemia ) 15 - 30 gm PO UD PRN PRN Reason: Hypoglycemia Protocol Stop: 05/01/23 00:21 Miscellaneous Information (Pharmacy Glycemic Mgmt Consult) 1 each N/A UD PRN; Protocol PRN Reason: Consult Stop: 05/01/23 08:32 Multivitamins (Multivitamin Tab) 1 tab PO [facility] Stop: 05/01/23 08:59 Last Admin: 04/01/23 09:12 Dose: 1 tab Nystatin (Nystatin Powder 15gm Btl) 1 appln EXT BID [facility] Stop: 05/01/23 03:29 Last Admin: 04/01/23 04:36 Dose: 1 appln Risperidone (Risperidone 0.5 Mg Tablet) 0.5 mg PO [facility] Stop: 05/01/23 20:59 Thiamine HCl (Thiamine Hcl 100 Mg Tab) [facility] [place] [facility] [place] Stop: 05/01/23 08:59 Last Admin: 04/01/23 09:13 Dose: 100 mg (3) Urinary tract infection Hematuria presence: without hematuria Urinary tract infection type: site unspecified Qualified Code(s): N39.0 - Urinary tract infection, site not specified
[2023-04-01] MEDS: INSULIN ASPART PER UNIT CHARGE SC SCH ×3 (12:12→20:55)
--- NOTE | 2023-04-01 13:14 | Electrocardiogram Report ---
Test Reason : Blood Pressure : / mmHG Vent. Rate : 099 BPM Atrial Rate : 099 BPM P-R Int : 170 ms QRS Dur : 088 ms QT Int : 336 ms P-R-T Axes : 081 -71 080 degrees QTc Int : 431 ms Poor data quality, interpretation may be adversely affected Normal sinus rhythm Left axis deviation Low voltage QRS Inferior infarct Possible Anterolateral infarct , age undetermined Abnormal ECG When compared with ECG of 31-AUG-2019 07:43, Borderline criteria for Anterolateral infarct are now Present Inferior infarct is now Present Confirmed by Byron Lima ([id number]) on 04/01/2023 1:14:31 PM Referred By: REFERRED SELF Confirmed By:Byron Lima
[2023-04-01] MEDS ORDERED: OPTIRAY 320 100ml IV ONE (14:20)
[2023-04-01 14:45] LABS: CTX-M Resistant Gene Not Detected (NotDetected)
--- NOTE | 2023-04-01 15:27 | CT Scan Report ---
ABDOMEN AND PELVIS CT WITH IV CONTRAST CT DOSE: 836.22 mGycm HISTORY: Lower GI bleed. Sepsis. TECHNIQUE: Multiaxial CT images of the abdomen and pelvis were performed following the use of intrave nous contrast. A dose lowering technique was utilized adhering to the principles of ALARA. COMPARISON STUDY: Abdomen and pelvis CT 12/07/2018. FINDINGS: Mild dependent changes seen at the lung bases. No pneumoperitoneum. No pneumatosis. A left femoral intramedullary kody is noted. There are old nonunited left pubic ring fractures. Subacute to c hronic sacral fractures are also noted. Multiple old compression deformities seen within the lower th oracic and lumbar spine. There are old right-sided rib fractures. No definite acute fractures identif ied. Small fat-containing left inguinal hernia is noted. Nodular contour to the liver consistent with cirrhosis. The liver is enlarged measuring 22 cm in length. The spleen is also enlarged measuring 13 cm in length. There is mild motion artifact. No hepatic or splenic masses identified. The pancreas, gallbladder, and adrenal glands are unremarkable. The main portal vein is patent. Extensive calcified plaque within the normal caliber abdominal aorta. No retroperitoneal lymphadenopathy. There is trace pelvic free fluid. The bladder is mildly distended. Mild bladder wall thickening is again noted. The re is heterogeneous enhancement within the left kidney. This favors a left-sided pyelonephritis. Ther e is left greater than right perinephric edema. There is mild urothelial enhancement within the left renal collecting system and left ureter. The right kidney enhances normally. No hydronephrosis. The a ppendix is not identified and reportedly surgically absent. There is mild to moderate fecal retention noted. No bowel wall thickening or obstruction. A few colonic diverticula. No evidence for acute div erticulitis. IMPRESSION: 1. Heterogeneous enhancement within the left kidney with associated left-sided urothelial enhancement . This likely represents a left-sided pyelonephritis. Recommend correlation with urinalysis. 2. The bladder is mildly distended and demonstrates a thickened wall. This favors a cystitis. 3. No bowel wall thickening or obstruction. 4. Cirrhotic liver. No hepatic masses. 5. Hepatosplenomegaly. 6. Multiple subacute to chronic fractures as described above. No definite acute fractures. ACT 112: Negative or not required by law. Electronically signed by: Fausto Angel M.D. 04/01/2023 3:26 PM
[2023-04-01 15:50] LABS: BUN Creatinine Ratio 30.8 (10-20); Calcium 8.2 mg/dl (8.6-10.3); Creatinine Clr Calc Pharmacy 70.3 ml/min; Est GFR (Non-African American) 86.2 ml/min; Magnesium 1.9 mg/dl (1.7-2.4); Phosphorus 2.2 mg/dl (2.5-4.9); Potassium 3.8 mmol/L (3.5-5.1)
[2023-04-01] MEDS: CEFEPIME 2,000 MG in SYRINGE 0 ML IV SCH ×2 (16:30→20:53)
[2023-04-01 19:57] LABS: Hematocrit (blood only) 26.7 % (37.0-47.0); Hemoglobin 8.1 g/dl (12.0-16.0)
[2023-04-01 20:14] LABS: BUN Creatinine Ratio 34.5 (10-20); Calcium 8.4 mg/dl (8.6-10.3); Creatinine Clr Calc Pharmacy 78.8 ml/min; Est GFR (African American) 103.8 ml/min; Est GFR (Non-African American) 89.5 ml/min; Magnesium 1.9 mg/dl (1.7-2.4); Phosphorus 2.2 mg/dl (2.5-4.9); Potassium 3.9 mmol/L (3.5-5.1)
[2023-04-01] MEDS: LATANOPROST 0.005% OP SOLN 2.5 ML BTL OP SCH (20:55)
[2023-04-01] MEDS: LITHIUM CARBONATE 300 MG TAB PO SCH (20:56)
[2023-04-01] MEDS ORDERED: LANTUS PER UNIT CHARGE SC SCH (21:00)
[2023-04-01] MEDS ORDERED: LANTUS PER UNIT CHARGE SQ SCH ×3 (21:00)
[2023-04-01] MEDS: risperiDONE 0.5 MG TABLET PO SCH (21:14)
[2023-04-02] MEDS: INSULIN ASPART PER UNIT CHARGE SC SCH ×6 (00:32→20:58)
[2023-04-02] MEDS: CEFEPIME 2,000 MG in SYRINGE 0 ML IV SCH (02:28)
[2023-04-02] MEDS: LEVOTHYROXINE SODIUM 25 MCG TABLET PO SCH (06:06)
[2023-04-02 06:30] LABS: Hematocrit (blood only) 26.1 % (37.0-47.0); Hemoglobin 7.7 g/dl (12.0-16.0); Mean Corpuscular Hemoglobin 26.1 pg (25.0-34.0); Mean Corpuscular Hgb Conc 29.5 g/dL (32.0-36.0); Mean Corpuscular Volume 88.5 fL (80.0-100.0); Mean Platelet Volume 10.6 fL (9.4-12.4); Platelet Count 159 K/uL (130-400); RDW Coefficient of Variation 18.7 % (11.5-14.5); RDW Standard Deviation 60.5 fL (36.4-46.3); Red Blood Count 2.95 M/uL (4.20-5.40); White Blood Count 4.92 K/ul (4.8-10.8)
[2023-04-02 06:44] LABS: BUN Creatinine Ratio 33.8 (10-20); Calcium 8.2 mg/dl (8.6-10.3); Creatinine Clr Calc Pharmacy 70.6 ml/min; Est GFR (Non-African American) 86.2 ml/min; Phosphorus 2.9 mg/dl (2.5-4.9)
--- NOTE | 2023-04-02 08:26 | Pharmacy Report ---
Pharmacy Glycemic Short Note 2 - Date of Service April 02, 2023 - Glycemic Short BSG Results (Last 24 hours): 04/01/23 04/01/23 04/01/23 09:41 09:42 09:52 Glucose 405 H* POC Glucose 445 H* 495 H* 04/01/23 04/01/23 04/01/23 11:58 13:06 14:02 Glucose POC Glucose 318 H* 376 H* 384 H* 04/01/23 04/01/23 04/01/23 15:03 15:07 16:02 Glucose 280 H POC Glucose 319 H* 243 H 04/01/23 04/01/23 04/01/23 17:10 18:06 19:02 Glucose POC Glucose 166 H 169 H 146 H 04/01/23 04/01/23 04/02/23 19:31 20:10 00:05 Glucose 135 H POC Glucose 159 H 184 H 04/02/23 04/02/23 04/02/23 03:58 05:31 08:12 Glucose 167 H POC Glucose 201 H 263 H OUTPATIENT ANTIDIABETIC REGIMEN: * Lantus 54 units SC HS * Metformin 1500 mg PO daily * Jardiance 10 mg PO daily HbA1c: 6.1% (03/31/23) ASSESSMENT: 04/02/23: * BSGs trended down while on insulin infusion, transitioned back to SC overnight * Unclear reason for apparent profound insulin resistance (besides infection) * Will adjust SC regimen as needed 04/01/23: * BR is a 77 year old female who presented to ED on 03/31 for evaluation of altered mental status * Blood and urine cultures are positive for gram-negative bacilli -E.coli per [employer] results * Empirically on cefepime at this time * Pharmacy consulted for glycemic management this morning due to persistently elevated BSGs since time of admission * Prior to consult, patient received 3 doses of Lantus overnight (30 units, 10 units, and 20 units for a total of 60 units), 10 units of IV insulin, and 20 units of Novolog. * BSG recheck mid-morning of 495 mg/dL - discussed with hospitalist and will initiated insulin infusion PLAN FOR INPATIENT GLYCEMIC CONTROL: * Hold outpatient oral diabetes medications * Basal insulin * Lantus 30 units SC BID * Bolus insulin * NovoLog per scale ACHS or Q6hrs while NPO * Goal Range: Low 110 mg/dL - High 140 mg/dL * Correction Factor: 25 mg/dL/unit * Nutritional / Prandial insulin per carb ratio of 1 unit per 8 grams CHO consumed
[2023-04-02] MEDS: THIAMINE HCL 100 MG TAB PO SCH (08:44)
[2023-04-02] MEDS: levETIRAcetam 500 MG TAB PO SCH ×2 (08:44→21:04)
[2023-04-02] MEDS: ARIPiprazole 5 MG TAB PO SCH (08:44)
[2023-04-02] MEDS: MULTIVITAMIN TAB PO SCH (08:45)
[2023-04-02] MEDS ORDERED: LANTUS PER UNIT CHARGE SC SCH ×2 (09:00)
--- NOTE | 2023-04-02 09:48 | Hospitalist Progress Note ---
Date of Service April 02, 2023 Assessment & Plan (1) Sepsis: (2) Bacteremia: Plan: gram negative bacteremia causing sepsis picture on admission. 2/2 pyelonephritis and likely from E coli Cont ceftriaxone daily, await further recommendations from ID specialist. (3) Acute pyelonephritis: Plan: UTI symptoms x 2 months, Bacteremia 5/2 blood culture positive for gram-negative bacilli 5/2 urine culture positive for zhao sensitive E coli Cefepime--> Ceftriaxone. Repeat blood cultx still pending ID consulted, appreciate recommendations for antibiotics. (4) Encephalopathy acute: Plan: Multifactorial: Hyperglycemic crisis, history DM 2 insulin requiring, reasonable control as of recent hemoglobin A1c of 7.2 every 2022 Complicated UTI, bacteremia, possible sepsis Hyponatremia (corrected serum sodium of 129 for serum glucose of 527) Home neuropsychotropic meds contributory, hx ADD/bipolar disorder/OCD as per records Hold gabapentin, Remeron, trazodone until mentation back to baseline (5) Diabetes mellitus with hyperglycemia: Plan: Hyperglycemia, DM Already received IVF since admission, IV and subq insulin - blood glucose still not controlled - Glycemic pharmacy consulted , still with some difficulty managing (glucose on 04/02 is 374) -cont glycemic pharmacist efforts and may need to temporarily utilize an insulin drip. -daughter reports this has been needed in the past during previous admissions to the hospital. -A1C is 6.1 reflecting good overall control. (6) Anemia due to chronic blood loss: Plan: Acute on chronic anemia secondary to painless LGIB hx colonic angiectasia, hemorrhoids, diverticulosis, radiation proctitis as per records cdiff is negative with stool culture still pending. CT a/p with no clear cause for bleeding. advanced diet as tolerated. She required 1 unit pRBCs just after admission and overall H/H has remained stable Pt denies any blood per rectum today and RN concurs with this (7) Disorders of fluid, electrolyte, and acid-base balance: Plan: moderate-severe hyponatremia on admission which corrected. It appears she was likey in DKA on presentation given hyperglycemia, urine ketones, anion gap acidosis. Per nephrology, control of infction and blood glucose should be the clinical priority, not the hyponatremia. (8) Hypoxia: Plan: Unclear etiology with clear CXR and no overt hypervolemia on exam. She is clinically improving today so will order echo for now. If still hypoxic tomorrow without improvement despite better physical movement/activity, will have low threshold for an additional contrasted study to rule out PE. For now, this appears to be low probability given clinical improvement, likely atelectasis from feeling poorly for so long, and generalized weakness. Cont supportive care with supplemental oxygen and titrate off as needed. (9) Hypertension: Plan: chronic controlled, losartan on hold with recent contrast administration. Cont to hold at this time per nephrology. (10) Cirrhosis: Plan: hx cirrhosis, no overt decompensation (11) Bipolar 1 disorder: Plan: chronic, stable. Cont Fairplay, duloxetine and risperidal per home regimen. (12) Seizure disorder: Plan: history of seizure disorder as per records, history of traumatic SAH cont keppra per home regimen SCDs given ongoing blood loss anemia Full code Dispo-rehab per therapy recommendation. I spent a total of60 minutes coordinating, documenting, and providing care for this patient excluding time spent in the performance of separately billed services Kym Miner DO [facility] Hospitalist Admission and Anticipated Discharge Date Admission Date: April 01, 2023 Subjective 77 yo F presents with sepsis 2/2 E coli bacteremia 2/2 pyelonephritis patient reports two months of UTI symptoms including dysuria and urinary urgency she states these are now resolved she reports feeling better because she was up and out of bed today she denies any blood per rectum. She is tolerating PO and denies fevers Daughter arrived at bedside and all of her questions were answered regarding labwork, etc. She states that mom does intermittently require blood transfusions as outpatient because of her known rectal bleeding I reviewed the outpatient records regarding her Dec 2022 colonoscopy Daughter states patient is in the midst of iron infusions as outpatient to improve her iron deficiency Review of Systems Review of Systems: All systems were reviewed and negative except as indicated on HPI above. Physical Exam Physical Exam: CONSTITUTIONAL: WNWD, vitals as above, generally well-appearing, NAD EYES: normal conjunctivae, no scleral icterus ENT: external ear and nose normal NECK: trachea midline RESPIRATORY: clear to auscultation bilaterally, no crackles, rales or wheezes, normal respiratory effort CARDIOVASCULAR: regular rate and rhythm, S1 and 2 heard without murmurs, gallops or rubs, no JVD, no peripheral edema CHEST: inspection of chest was normal GASTROINTESTINAL: soft, nontender, ND, no guarding MUSCULOSKELETAL: generalized weakness, can sit up independently in bed, head is normocephalic and atraumatic SKIN; Warm and dry NEUROLOGIC: CN 2-12 grossly intact, no sensory deficit, normal cognition, normal speech, no tremor PSYCHIATRIC: alert cooperative and oriented to person, place and time. Euthymi c mood, makes good eye contact, language grossly intact, recent and remote memory grossly intact. Results & Data Results & Data Vital Signs (Past 12 Hours) Vital Signs Temp Pulse Pulse Resp BP Pulse Ox O2 Del Method 04/02/23 08:00 82 04/02/23 07:30 36.8 C 89 16 105/72 Room Air 04/02/23 03:32 37.1 C 85 20 111/68 98 Room Air 04/01/23 22:54 36.7 C 93 H 20 99/56 L 98 Nasal Cannula O2 Flow Rate 04/02/23 08:00 04/02/23 07:30 98 04/02/23 03:32 04/01/23 22:54 3 Laboratory Results Short CBC 04/01/23 04/02/23 Range/Units 19:31 05:31 WBC 4.92 (4.8-10.8) K/ul Hgb 8.1 L 7.7 L (12.0-16.0) g/dl Hct 26.7 L 26.1 L (37.0-47.0) % Plt Count 159 (130-400) K/uL BMP 04/01/23 04/01/23 04/01/23 09:52 15:07 19:31 Sodium 126 L 129 L Potassium 3.8 3.9 Chloride 101 102 Carbon Dioxide 19 L 21 BUN 20 20 Creatinine 0.65 0.58 L Glucose 405 H* 280 H 135 H Calcium 8.2 L 8.4 L 04/02/23 05:31 Sodium 130 L Potassium 4.0 Chloride 102 Carbon Dioxide 21 BUN 22 Creatinine 0.65 Glucose 167 H Calcium 8.2 L Medications Administered Current Inpatient Medications Acetaminophen (Acetaminophen 325 Mg Tab) 325 mg PO Q6 PRN PRN Reason: Pain Stop: 05/01/23 02:19 Aripiprazole (Aripiprazole 5 Mg Tab) 5 mg PO QAM VALERIE Stop: 05/01/23 08:59 Last Admin: 04/02/23 08:44 Dose: 5 mg Dextrose (Dextrose 50% 50 Ml Syringe) 25 - 50 ml IV UD PRN; Protocol PRN Reason: Hypoglycemia Protocol Stop: 05/01/23 00:21 Duloxetine HCl (Duloxetine Hcl 60 Mg Cap) 60 mg PO UD VALERIE Stop: 05/01/23 02:19 Glucagon (Glucagon For Inj 1 Mg Vial) 1 mg SQ UD PRN; Protocol PRN Reason: Hypoglycemia Protocol Stop: 05/01/23 00:21 Glucose (Glucose 10 Tab/Tube) 4 - 8 tab PO UD PRN; Protocol PRN Reason: Hypoglycemia Treatment Stop: 05/01/23 00:21 Glucose (Glucose 40% Gel 15 Gm Tube) 15 - 30 gm PO UD PRN; Protocol PRN Reason: Hypoglycemia Protocol Stop: 05/01/23 00:21 Promethazine HCl 6.25 mg/ (Sodium Chloride) 50.25 mls @ 201 mls/hr IV Q6H PRN PRN Reason: Nausea And Vomiting Stop: 05/01/23 03:20 Last Infusion: 04/01/23 04:11 Dose: Infused Ceftriaxone Sodium 2,000 mg/ (Dextrose) 70 mls @ 100 mls/hr IV Q24H [facility]; Protocol Stop: 04/16/23 09:59 Insulin Aspart (Insulin Aspart Per Unit Charge) 0 units SC ACHS [facility]; Protocol Stop: 05/01/23 19:59 Last Admin: 04/02/23 08:51 Dose: 15 units Insulin Glargine (Lantus Per Unit Charge) 30 units SC DAILY VALERIE Stop: 05/02/23 08:59 Last Admin: 04/02/23 08:51 Dose: 30 units Latanoprost (Latanoprost 0.005% Op Soln 2.5 Ml Btl) 1 drops OP HS [facility] Stop: 05/01/23 20:59 Last Admin: 04/01/23 20:55 Dose: 1 drops Levetiracetam (Levetiracetam 500 Mg Tab) 1,000 mg PO AMHS [facility] Stop: 05/01/23 08:59 Last Admin: 04/02/23 08:44 Dose: 1,000 mg Levothyroxine Sodium (Levothyroxine Sodium 25 Mcg Tablet) 25 mcg PO [email or web address]@[id number] VALERIE Stop: 05/01/23 06:29 Last Admin: 04/02/23 06:06 Dose: 25 mcg Levothyroxine Sodium (Levothyroxine Sodium 50 Mcg Tablet) 50 mcg PO [email or web address] [facility] Stop: 05/05/23 06:29 Fairplay Carbonate (Fairplay Carbonate 300 Mg Tab) 300 mg PO [facility] Stop: 05/01/23 20:59 Last Admin: 04/01/23 20:56 Dose: 300 mg Losartan Potassium (Losartan Potassium 50 Mg Tab) [facility] [place]: 05/01/23 08:59 Last Admin: 04/01/23 09:12 Dose: 50 mg Miscellaneous (Carbohydrates For Hypoglycemia ) 15 - 30 gm PO UD PRN PRN Reason: Hypoglycemia Protocol Stop: 05/01/23 00:21 Miscellaneous Information (Pharmacy Glycemic Mgmt Consult) 1 each N/A UD PRN; Protocol PRN Reason: Consult Stop: 05/01/23 08:32 Multivitamins (Multivitamin Tab) 1 tab [facility] [place]: 05/01/23 08:59 Last Admin: 04/02/23 08:45 Dose: 1 tab Nystatin (Nystatin Powder 15gm Btl) 1 appln EXT BID [facility] Stop: 05/01/23 03:29 Last Admin: 04/01/23 20:57 Dose: 1 appln Risperidone (Risperidone 0.5 Mg Tablet) 0.5 mg PO [facility] Stop: 05/01/23 20:59 Last Admin: 04/01/23 21:14 Dose: 0.5 mg Thiamine HCl (Thiamine Hcl 100 Mg Tab) 100 [facility] [place]: 05/01/23 08:59 Last Admin: 04/02/23 08:44 Dose: 100 mg
--- NOTE | 2023-04-02 10:39 | Nephrology Progress Note ---
Date of Service April 02, 2023 Assessment & Plan (1) Disorders of fluid, electrolyte, and acid-base balance: Plan: moderate - severe hyponatremia on presentation which corrected quite quickly even as elevated serum glucose was relatively unchanged for 18-24 hrs after presentation > sNa hovering at bout 130 ketonuria noted from admission ABG remarkable for alkalemia overall but notable AG metabolic acidosis component; she could have had relative dehydration from metformin, from jardiance. No diuretics on board, no hx of emesis reported. severe hypoxic respiratory failure but does not appear to be fluid overloaded >> with hyperglycemia, urine ketones, AG acidosis in setting of bacteremia on presentation, favor DKA at presentation; though w/ insulin tx gap has closed and pt has had no further IVF -sodium levels not a clinical priority currently; focus on infection and bg control >source/cause of hypoxia unclear (pt is only 2.4L positive on the admission in the setting of bacteremia and sepsis) > repeat CXR but low threshold to consider TTE or chest CT chest PE protocol >given IV contrast exposure and severe illness, have held losartan >>with her chornic Sloan therapy she will be quite prone to hyPERnatremia if NPO for extended time Will sign off; no specific nephro f/u recommendations; pls call if further ? (2) Bacteremia: Admission and Anticipated Discharge Date Admission Date: April 01, 2023 Subjective L pyelonephrtitis on imaging; no interval events ;tells me she feels improved > though breathing still " strained" Review of Systems Review of Systems: All systems reviewed & are unremarkable except as noted in Subjective Physical Exam Constitutional: well developed and well nourished; no acute distress Eyes: EOM intact bilaterally ENMT: Ears: no external ear abnormality Nose: no external nose abnormality Mouth: + dry oral mucous membranes Neck: no nuchal rigidity Respiratory: + labored breathing, + abnormal respiratory pattern and + pursed lip breathing; + abnormal respiratory effort (puffs a bit with her breathing), does not use accessory muscles, no cough, not tachypneic and expiratory phase not prolonged Auscultation: + diminished lung sounds Cardiovascular: RRR, no murmur, no edema Gastrointestinal (Abdomen): Inspection/Auscultation: + abdomen distended and normal bowel sounds Percussion/Palpation: abdomen soft; abdomen nontender Musculoskeletal: Extremities: strength 5/5 throughout Skin: no rashes, warm and dry Psychiatric: Orientation: alert, oriented to person and + guarded Results & Data Vital Signs (Past 12 Hours) Vital Signs Temp Pulse Pulse Resp BP Pulse Ox O2 Del Method 04/02/23 08:00 Nasal Cannula 04/02/23 08:00 82 04/02/23 07:30 36.8 C 89 16 105/72 Room Air 04/02/23 03:32 37.1 C 85 20 111/68 98 Room Air 04/01/23 22:54 36.7 C 93 H 20 99/56 L 98 Nasal Cannula O2 Flow Rate 04/02/23 08:00 3 04/02/23 08:00 04/02/23 07:30 98 04/02/23 03:32 04/01/23 22:54 3 Laboratory Results 04/02/23 05:31 04/02/23 05:[address] a/p 1. Heterogeneous enhancement within the left kidney with associated left-sided urothelial enhancement. This likely represents a left-sided pyelonephritis. Recommend correlation with urinalysis. 2. The bladder is mildly distended and demonstrates a thickened wall. This fav ors a cystitis. 3. No bowel wall thickening or obstruction. 4. Cirrhotic liver. No hepatic masses. 5. Hepatosplenomegaly. 6. Multiple subacute to chronic fractures as described above. No definite acute fractures.
[2023-04-02] MEDS: NYSTATIN POWDER 15GM BTL EXT SCH ×2 (10:55→21:05)
[2023-04-02] MEDS: cefTRIAXone SODIUM 2,000 MG in DEXTROSE 5% 50 ML IV SCH (10:56)
[2023-04-02] MEDS ORDERED: INSULIN HUMAN REGULAR PER UNIT 7 UNITS in SYRINGE 6.93 ML IV ONE (11:30)
[2023-04-02] MEDS ORDERED: LANTUS PER UNIT CHARGE SC ONE (11:30)
[2023-04-02 15:49] LABS: Adenovirus F 40/41 PCR Not Detected (NotDetected); Astrovirus PCR Not Detected (NotDetected); Campylobacter PCR Not Detected (NotDetected); Cryptosporidium PCR Not Detected (NotDetected); Cyclospora cayetanensis PCR Not Detected (NotDetected); Entamoeba histolytica PCR Not Detected (NotDetected); Enteroaggregative E.coli(EAEC) Not Detected (NotDetected); Enteropathogenic E.coli (EPEC) Not Detected (NotDetected); Enterotoxigenic E.coli (ETEC) Not Detected (NotDetected); Giardia lamblia PCR Not Detected (NotDetected); Norovirus GI/GII PCR Not Detected (NotDetected); Plesiomonas shigelloides PCR Not Detected (NotDetected); Rotavirus A PCR Not Detected (NotDetected); Salmonella PCR Not Detected (NotDetected); Sapovirus PCR Not Detected (NotDetected); Shiga-like Toxin E.coli (STEC) Not Detected (NotDetected); Shigella/Enteroinvasive E.coli Not Detected (NotDetected); Vibrio cholerae PCR Not Detected (NotDetected); Vibrio species PCR Not Detected (NotDetected); Yersinia enterocolitica PCR Not Detected (NotDetected)
[2023-04-02] MEDS: traZODone HCL 100 MG TAB PO SCH (21:04)
[2023-04-02] MEDS: LITHIUM CARBONATE 300 MG TAB PO SCH (21:04)
[2023-04-02] MEDS: LATANOPROST 0.005% OP SOLN 2.5 ML BTL OP SCH (21:04)
[2023-04-02] MEDS: risperiDONE 0.5 MG TABLET PO SCH (21:04)
[2023-04-02] MEDS: GABAPENTIN 100 MG CAP PO SCH (21:04)
[2023-04-03] MEDS: INSULIN ASPART PER UNIT CHARGE SC SCH ×6 (00:22→20:58)
[2023-04-03] MEDS: LEVOTHYROXINE SODIUM 25 MCG TABLET PO SCH (05:27)
[2023-04-03 06:15] LABS: Hemoglobin 7.7 g/dl (12.0-16.0); Mean Corpuscular Hemoglobin 26.2 pg (25.0-34.0); Mean Corpuscular Hgb Conc 29.6 g/dL (32.0-36.0); Mean Corpuscular Volume 88.4 fL (80.0-100.0); Mean Platelet Volume 9.1 fL (9.4-12.4); Platelet Count 153 K/uL (130-400); RDW Coefficient of Variation 18.4 % (11.5-14.5); RDW Standard Deviation 59.2 fL (36.4-46.3); Red Blood Count 2.94 M/uL (4.20-5.40)
[2023-04-03 06:47] LABS: Calcium 8.4 mg/dl (8.6-10.3); Magnesium 1.9 mg/dl (1.7-2.4)
[2023-04-03 06:53] LABS: BUN Creatinine Ratio 32.1 (10-20); Creatinine Clr Calc Pharmacy 85.5 ml/min; Est GFR (African American) 106.9 ml/min; Est GFR (Non-African American) 92.2 ml/min; Phosphorus 2.9 mg/dl (2.5-4.9)
--- NOTE | 2023-04-03 08:58 | Pharmacy Report ---
Pharmacy Glycemic Short Note 2 - Date of Service April 03, 2023 - Glycemic Short BSG Results (Last 24 hours): 04/02/23 04/02/23 04/02/23 11:16 11:16 13:55 Glucose POC Glucose 375 H* 374 H* 325 H* 04/02/23 04/02/23 04/02/23 16:46 20:53 23:45 Glucose POC Glucose 183 H 203 H 179 H 04/03/23 04/03/23 04/03/23 04:08 05:36 07:48 Glucose 165 H POC Glucose 173 H 205 H OUTPATIENT ANTIDIABETIC REGIMEN: * Lantus 54 units SC HS * Metformin 1500 mg PO daily * Jardiance 10 mg PO daily HbA1c: 6.1% (03/31/23) ASSESSMENT: 04/03/23: * BSGs remained elevated yesterday (received 118 units of insulin ~50/50 basal/bolus split) * Will give full daily basal dose this morning and continue tightened Novolog parameters * will tighten further at lunchtime if BSGs still > 200 mg/dL * Home empagliflozin restarted by hospitalist for this morning - should also help in better glycemic management today 04/02/23: * BSGs trended down while on insulin infusion, transitioned back to SC overnight * Unclear reason for apparent profound insulin resistance (besides infection) * Will adjust SC regimen as needed 04/01/23: * BR is a 77 year old female who presented to ED on 03/31 for evaluation of altered mental status * Blood and urine cultures are positive for gram-negative bacilli -E.coli per [employer] results * Empirically on cefepime at this time * Pharmacy consulted for glycemic management this morning due to persistently elevated BSGs since time of admission * Prior to consult, patient received 3 doses of Lantus overnight (30 units, 10 units, and 20 units for a total of 60 units), 10 units of IV insulin, and 20 units of Novolog. * BSG recheck mid-morning of 495 mg/dL - discussed with hospitalist and will initiated insulin infusion PLAN FOR INPATIENT GLYCEMIC CONTROL: * Hold outpatient oral diabetes medications * Basal insulin * Lantus 60 units SC daily * Lantus 0-20 units SC HS * Bolus insulin * NovoLog per scale ACHS or Q6hrs while NPO * Goal Range: Low 110 mg/dL - High 140 mg/dL * Correction Factor: 15 mg/dL/unit * Nutritional / Prandial insulin per carb ratio of 1 unit per 5 grams CHO consumed
[2023-04-03] MEDS ORDERED: LANTUS PER UNIT CHARGE SQ SCH ×2 (09:00→21:00)
[2023-04-03] MEDS: EZETIMIBE 10 MG TABLET PO SCH (09:09)
[2023-04-03] MEDS: GABAPENTIN 100 MG CAP PO SCH ×3 (09:09→20:23)
[2023-04-03] MEDS: levETIRAcetam 500 MG TAB PO SCH ×2 (09:09→20:24)
[2023-04-03] MEDS: ARIPiprazole 5 MG TAB PO SCH (09:09)
[2023-04-03] MEDS: THIAMINE HCL 100 MG TAB PO SCH (09:09)
[2023-04-03] MEDS: EMPAGLIFLOZIN 10 MG TAB PO SCH (09:10)
[2023-04-03] MEDS: NYSTATIN POWDER 15GM BTL EXT SCH ×2 (09:11→20:25)
[2023-04-03] MEDS: MULTIVITAMIN TAB PO SCH (09:15)
[2023-04-03] MEDS: cefTRIAXone SODIUM 2,000 MG in DEXTROSE 5% 50 ML IV SCH (09:17)
[2023-04-03] MEDS ORDERED: INSULIN HUMAN REGULAR PER UNIT 7 UNITS in SYRINGE 6.93 ML IV ONE (12:30)
--- NOTE | 2023-04-03 17:42 | Hospitalist Progress Note ---
Date of Service April 03, 2023 Assessment & Plan (1) Sepsis: (2) Bacteremia: Plan: gram negative bacteremia causing sepsis picture on admission. 2/2 pyelonephritis and likely from E coli Cont ceftriaxone daily, await further recommendations from ID specialist. (3) Acute pyelonephritis: Plan: UTI symptoms x 2 months, Bacteremia 5/2 blood culture positive for gram-negative bacilli 5/2 urine culture positive for zhao sensitive E coli Cefepime--> Ceftriaxone. Repeat blood cultx still pending ID consulted, but no definitive recommendations were made and ID is currently unavailable. Will continue ceftriaxone through the weekend until we can better elucidate the plan with ID on Thursday. (4) Encephalopathy acute: Plan: Multifactorial: Hyperglycemic crisis, history DM 2 insulin requiring, reasonable control as of recent hemoglobin A1c of 7.2 every 2022 Complicated UTI, bacteremia, possible sepsis Hyponatremia (corrected serum sodium of 129 for serum glucose of 527) Home neuropsychotropic meds contributory, hx ADD/bipolar disorder/OCD as per records Initially held gabapentin, Remeron, trazodone until mentation back to baseline 04/02: restarted trazodone, gabapentin and remeron. 04/03: doing well today from a mental status standpoint. (5) Diabetes mellitus with hyperglycemia: Plan: Hyperglycemia, DM Already received IVF since admission, IV and subq insulin - blood glucose still not controlled - Glycemic pharmacy consulted , still with some difficulty managing (glucose on 04/02 is 374, 04/03 at lunch again went into the 300s) -cont glycemic pharmacist efforts and may need to temporarily utilize an insulin drip. -A1C is 6.1 reflecting good overall control. (6) Anemia due to chronic blood loss: Plan: Acute on chronic anemia secondary to painless LGIB hx colonic angiectasia, hemorrhoids, diverticulosis, radiation proctitis as per records cdiff is negative with stool culture negative. CT a/p with no clear cause for bleeding. advanced diet as tolerated. She required 1 unit pRBCs just after admission and overall H/H has remained stable Pt denies any blood per rectum today Continue supportive care and blood transfusions as needed for Hb<7 (7) Disorders of fluid, electrolyte, and acid-base balance: Plan: moderate-severe hyponatremia on admission which corrected. It appears she was likey in DKA on presentation given hyperglycemia, urine ketones, anion gap acidosis. Per nephrology, control of infction and blood glucose should be the clinical priority, not the hyponatremia. (8) Hypoxia: Plan: Unclear etiology with clear CXR and no overt hypervolemia on exam. She is clinically improving today so will order echo for now. If still hypoxic tomorrow without improvement despite better physical movement/activity, will have low threshold for an additional contrasted study to rule out PE. For now, this appears to be low probability given clinical improvement, likely atelectasis from feeling poorly for so long, and generalized weakness. Cont supportive care with supplemental oxygen and titrate off as needed. CXR in am. (9) Hypertension: Plan: chronic controlled, losartan on hold with recent contrast administration. Cont to hold at this time per nephrology. (10) Cirrhosis: Plan: hx cirrhosis, no overt decompensation (11) Bipolar 1 disorder: Plan: chronic, stable. Cont [place], duloxetine and risperidal per home regimen. (12) Seizure disorder: Plan: history of seizure disorder as per records, history of traumatic SAH cont keppra per home regimen SCDs given ongoing blood loss anemia Full code Dispo-rehab per therapy recommendation. I spent a total of60 minutes coordinating, documenting, and providing care for this patient excluding time spent in the performance of separately billed services Kym Miner DO [facility] Hospitalist Admission and Anticipated Discharge Date Admission Date: April 01, 2023 Subjective 77 yo F presents with sepsis 2/2 E coli bacteremia 2/2 pyelonephritis Patient reports she is feeling well and has been out of bed today. She denies any issues with urination or blood per rectum She feels overall pretty well except continues to be somewhat weak is at bedside and we discussed rehab as a plan on Thursday or Thursday of next week All are in agreement. Discussed with primary RN the patient's blood sugar is elevated Discussed with glycemic pharmacist on his plan with additional insulin today. Continue to tighten control with NovoLog for goal glucose less than 180 postpra ndial Review of Systems Review of Systems: All systems were reviewed and negative except as indicated on HPI above. Physical Exam Physical Exam: CONSTITUTIONAL: WNWD, vitals as above, generally well-appearing, NAD EYES: normal conjunctivae, no scleral icterus ENT: external ear and nose normal NECK: trachea midline RESPIRATORY: clear to auscultation bilaterally, no crackles, rales or wheezes, normal respiratory effort CARDIOVASCULAR: regular rate and rhythm, S1 and 2 heard without murmurs, gallops or rubs, no JVD, no peripheral edema CHEST: inspection of chest was normal GASTROINTESTINAL: soft, nontender, ND, no guarding MUSCULOSKELETAL: generalized weakness, can sit up independently in bed, head is normocephalic and atraumatic SKIN; Warm and dry NEUROLOGIC: CN 2-12 grossly intact, no sensory deficit, normal cognition, normal speech, no tremor PSYCHIATRIC: alert cooperative and oriented to person, place and time. Euthymic mood, makes good eye contact, language grossly intact, recent and remote memory grossly intact. Results & Data Results & Data Vital Signs (Past 12 Hours) Vital Signs Temp Pulse Pulse Resp BP Pulse Ox O2 Del Method 04/03/23 15:26 36.7 C 76 18 123/70 100 Nasal Cannula 04/03/23 15:54 81 04/03/23 11:54 36.7 C 75 18 124/74 100 Nasal Cannula 04/03/23 11:54 Nasal Cannula 04/03/23 08:00 78 04/03/23 07:43 36.9 C 80 18 121/70 100 Nasal Cannula O2 Flow Rate 04/03/23 15:26 3.0 04/03/23 15:54 04/03/23 11:54 3.0 04/03/23 11:54 3 04/03/23 08:00 04/03/23 07:43 3.0 Laboratory Results Short CBC 04/03/23 Range/Units 05:36 WBC 3.40 L (4.8-10.8) K/ul Hgb 7.7 L (12.0-16.0) g/dl Hct 26.0 L (37.0-47.0) % Plt Count 153 (130-400) K/uL BMP 04/03/23 05:36 Sodium 131 L Potassium 4.0 Chloride 105 Carbon Dioxide 21 BUN 17 Creatinine 0.53 L Glucose 165 H Calcium 8.4 L Medications Administered Current Inpatient Medications Acetaminophen (Acetaminophen 325 Mg Tab) 325 mg PO Q6 PRN PRN Reason: Pain Stop: 05/01/23 02:19 Aripiprazole (Aripiprazole 5 Mg Tab) 5 mg PO QAM [facility] Stop: 05/01/23 08:59 Last Admin: 04/03/23 09:09 Dose: 5 mg Dextrose (Dextrose 50% 50 Ml Syringe) 25 - 50 ml IV UD PRN; Protocol PRN Reason: Hypoglycemia Protocol Stop: 05/01/23 00:21 Duloxetine HCl (Duloxetine Hcl 60 Mg Cap) 60 mg PO UD [facility] Stop: 05/01/23 02:19 Ezetimibe (Ezetimibe 10 Mg Tablet) 10 mg PO QAM [facility] Stop: 05/03/23 08:59 Last Admin: 04/03/23 09:09 Dose: 10 mg Empagliflozin (Empagliflozin 10 Mg Tab) 10 mg PO QAM [facility] Stop: 05/03/23 08:59 Last Admin: 04/03/23 09:10 Dose: 10 mg Gabapentin (Gabapentin 100 Mg Cap) 100 mg PO TID [facility] Stop: 05/02/23 20:59 Last Admin: 04/03/23 14:52 Dose: 100 mg Glucagon (Glucagon For Inj 1 Mg Vial) 1 mg SQ UD PRN; Protocol PRN Reason: Hypoglycemia Protocol Stop: 05/01/23 00:21 Glucose (Glucose 10 Tab/Tube) 4 - 8 tab PO UD PRN; Protocol PRN Reason: Hypoglycemia Treatment Stop: 05/01/23 00:21 Glucose (Glucose 40% Gel 15 Gm Tube) 15 - 30 gm PO UD PRN; Protocol PRN Reason: Hypoglycemia Protocol Stop: 05/01/23 00:21 Promethazine HCl 6.25 mg/ (Sodium Chloride) 50.25 mls @ 201 mls/hr IV Q6H PRN PRN Reason: Nausea And Vomiting Stop: 05/01/23 03:20 Last Infusion: 04/01/23 04:11 Dose: Infused Ceftriaxone Sodium 2,000 mg/ (Dextrose) 70 mls @ 100 mls/hr IV Q24H [facility]; Protocol Stop: 04/16/23 09:59 Last Infusion: 04/03/23 10:31 Dose: Infused Insulin Aspart (Insulin Aspart Per Unit Charge) 0 units SC ACHS [facility]; Protocol Stop: 05/01/23 19:59 Last Admin: 04/03/23 17:09 Dose: 6 units Insulin Aspart (Insulin Aspart Per Unit Charge) 0 units SC 0200 [facility]; Protocol Stop: 04/04/23 02:01 Insulin Glargine (Lantus Per Unit Charge) 60 units SQ DAILY [facility] Stop: 05/03/23 08:59 Last Admin: 04/03/23 09:08 Dose: 60 units Insulin Glargine (Lantus Per Unit Charge) 0 units SQ HS [facility]; Protocol Stop: 04/03/23 21:01 Latanoprost (Latanoprost 0.005% Op Soln 2.5 Ml Btl) 1 drops OP HS [facility] Stop: 05/01/23 20:59 Last Admin: 04/02/23 21:04 Dose: 1 drops Levetiracetam (Levetiracetam 500 Mg Tab) 1,000 mg PO AMHS [facility] Stop: 05/01/23 08:59 Last Admin: 04/03/23 09:09 Dose: 1,000 mg Levothyroxine Sodium (Levothyroxine Sodium 25 Mcg Tablet) 25 mcg PO MoTuWeThFrSa@30 [facility] Stop: 05/01/23 06:29 Last Admin: 04/03/23 05:27 Dose: 25 mcg Levothyroxine Sodium (Levothyroxine Sodium 50 Mcg Tablet) 50 mcg PO Delgado@30 [facility] Stop: 05/05/23 06:29 [place] Carbonate ([place] Carbonate 300 Mg Tab) 300 mg PO [facility] Stop: 05/01/23 20:59 Last Admin: 04/02/23 21:04 Dose: 300 mg Losartan Potassium (Losartan Potassium 50 Mg Tab) 50 mg PO QAM [facility] Stop: 05/01/23 08:59 Last Admin: 04/01/23 09:12 Dose: 50 mg Miscellaneous (Carbohydrates For Hypoglycemia ) 15 - 30 gm PO UD PRN PRN Reason: Hypoglycemia Protocol Stop: 05/01/23 00:21 Miscellaneous Information (Pharmacy Glycemic Mgmt Consult) 1 each N/A UD PRN; Protocol PRN Reason: Consult Stop: 05/01/23 08:32 Multivitamins (Multivitamin Tab) 1 tab PO QAM [facility] Stop: 05/01/23 08:59 Last Admin: 04/03/23 09:15 Dose: 1 tab Nystatin (Nystatin Powder 15gm Btl) 1 appln EXT BID [facility] Stop: 05/01/23 03:29 Last Admin: 04/03/23 09:11 Dose: 1 appln Risperidone (Risperidone 0.5 Mg Tablet) 0.5 mg PO [facility] Stop: 05/01/23 20:59 Last Admin: 04/02/23 21:04 Dose: 0.5 mg Thiamine HCl (Thiamine Hcl 100 Mg Tab) [facility] [place] Stop: 05/01/23 08:59 Last Admin: 04/03/23 09:09 Dose: 100 mg Trazodone HCl (Trazodone Hcl 100 Mg Tab) 100 mg PO [facility] Stop: 05/02/23 20:59 Last Admin: 04/02/23 21:04 Dose: 100 mg
[2023-04-03] MEDS: LATANOPROST 0.005% OP SOLN 2.5 ML BTL OP SCH (20:24)
[2023-04-03] MEDS: traZODone HCL 100 MG TAB PO SCH (20:25)
[2023-04-03] MEDS: LITHIUM CARBONATE 300 MG TAB PO SCH (20:25)
[2023-04-03] MEDS: risperiDONE 0.5 MG TABLET PO SCH (20:25)
[2023-04-04] MEDS ORDERED: INSULIN ASPART PER UNIT CHARGE SC SCH (02:00)
[2023-04-04] MEDS: LEVOTHYROXINE SODIUM 25 MCG TABLET PO SCH (06:03)
[2023-04-04 07:00] LABS: Hematocrit (blood only) 26.2 % (37.0-47.0); Hemoglobin 7.9 g/dl (12.0-16.0); Mean Corpuscular Hemoglobin 26.3 pg (25.0-34.0); Mean Corpuscular Hgb Conc 30.2 g/dL (32.0-36.0); Mean Corpuscular Volume 87.3 fL (80.0-100.0); Mean Platelet Volume 9.5 fL (9.4-12.4); Platelet Count 151 K/uL (130-400); RDW Coefficient of Variation 18.3 % (11.5-14.5); RDW Standard Deviation 58.9 fL (36.4-46.3); White Blood Count 2.61 K/ul (4.8-10.8)
[2023-04-04 07:17] LABS: BUN Creatinine Ratio 26.9 (10-20); Calcium 8.6 mg/dl (8.6-10.3); Est GFR (African American) 107.6 ml/min; Est GFR (Non-African American) 92.8 ml/min; Magnesium 1.8 mg/dl (1.7-2.4); Phosphorus 3.6 mg/dl (2.5-4.9); Potassium 3.8 mmol/L (3.5-5.1)
--- NOTE | 2023-04-04 07:39 | XRay Report ---
XR chest 1V portable HISTORY: persistent hypoxia COMPARISON: Chest 04/01/2023. FINDINGS: No pneumothorax. The cardiac silhouette remains mildly enlarged. There is a left subclavian Port-A-Cath which terminates in the SVC. Postoperative changes again noted within the right shoulder . There is an old, healed left clavicle fracture and old left rib fractures. No evidence for pulmonar y edema. A few bibasilar linear densities favor subsegmental atelectasis. Otherwise, no new focal chayito g consolidations to suggest a pneumonia. Stable mild elevation of the right hemidiaphragm. IMPRESSION: No acute process. ACT 112: Negative or not required by law. Electronically signed by: Fausto Angel M.D. 04/04/2023 7:36 AM
[2023-04-04] MEDS: levETIRAcetam 500 MG TAB PO SCH ×2 (08:10→20:23)
[2023-04-04] MEDS: INSULIN ASPART PER UNIT CHARGE SC SCH ×4 (08:10→21:19)
[2023-04-04] MEDS: MULTIVITAMIN TAB PO SCH (08:11)
[2023-04-04] MEDS: GABAPENTIN 100 MG CAP PO SCH ×3 (08:11→20:22)
[2023-04-04] MEDS: THIAMINE HCL 100 MG TAB PO SCH (08:11)
[2023-04-04] MEDS: EZETIMIBE 10 MG TABLET PO SCH (08:11)
[2023-04-04] MEDS: EMPAGLIFLOZIN 10 MG TAB PO SCH (08:11)
[2023-04-04] MEDS: ARIPiprazole 5 MG TAB PO SCH (08:11)
[2023-04-04] MEDS: NYSTATIN POWDER 15GM BTL EXT SCH ×2 (08:12→20:24)
[2023-04-04] MEDS: cefTRIAXone SODIUM 2,000 MG in DEXTROSE 5% 50 ML IV SCH (09:50)
--- NOTE | 2023-04-04 10:46 | Hospitalist Progress Note ---
Date of Service April 04, 2023 Assessment & Plan (1) Sepsis: (2) Bacteremia: Plan: gram negative bacteremia causing sepsis picture on admission. 2/2 pyelonephritis and likely from E coli Cont ceftriaxone daily, await further recommendations from ID specialist. (3) Acute pyelonephritis: Plan: UTI symptoms x 2 months, Bacteremia 5/2 blood culture positive for gram-negative bacilli 5/2 urine culture positive for zhao sensitive E coli Cefepime--> Ceftriaxone. Repeat blood cultx still pending ID consulted, but no definitive recommendations were made and ID is currently unavailable. Will continue ceftriaxone through the weekend until we can better elucidate the plan with ID on Thursday. (4) Encephalopathy acute: Plan: Multifactorial: Hyperglycemic crisis, history DM 2 insulin requiring, reasonable control as of recent hemoglobin A1c of 7.2 every 2022 Complicated UTI, bacteremia, possible sepsis Hyponatremia (corrected serum sodium of 129 for serum glucose of 527) Home neuropsychotropic meds contributory, hx ADD/bipolar disorder/OCD as per records Initially held gabapentin, Remeron, trazodone until mentation back to baseline 04/02: restarted trazodone, gabapentin and remeron. 04/03: doing well today from a mental status standpoint. (5) Diabetes mellitus with hyperglycemia: Plan: Hyperglycemia, DM Already received IVF since admission, IV and subq insulin - blood glucose still not controlled - Glycemic pharmacy consulted , still with some difficulty managing (glucose on 04/02 is 374, 04/03 at lunch again went into the 300s) -cont glycemic pharmacist efforts and may need to temporarily utilize an insulin drip. -A1C is 6.1 reflecting good overall control. (6) Anemia due to chronic blood loss: Plan: Acute on chronic anemia secondary to painless LGIB hx colonic angiectasia, hemorrhoids, diverticulosis, radiation proctitis as per records cdiff is negative with stool culture negative. CT a/p with no clear cause for bleeding. advanced diet as tolerated. She required 1 unit pRBCs just after admission and overall H/H has remained stable Pt denies any blood per rectum today Continue supportive care and blood transfusions as needed for Hb<7 (7) Disorders of fluid, electrolyte, and acid-base balance: Plan: moderate-severe hyponatremia on admission which corrected. It appears she was likey in DKA on presentation given hyperglycemia, urine ketones, anion gap acidosis. Per nephrology, control of infction and blood glucose should be the clinical priority, not the hyponatremia. (8) Hypoxia: Plan: Unclear etiology with clear CXR and no overt hypervolemia on exam. Possibly related to anemia. CXR consistently clear. CTA chest pending. Cont supplemntal oxygen. Notably RN reported that her sat dropped to 78% this am when off oxygen. (9) Hypertension: Plan: chronic controlled, losartan on hold with recent contrast administration. Cont to hold at this time per nephrology. (10) Cirrhosis: Plan: hx cirrhosis, no overt decompensation (11) Bipolar 1 disorder: Plan: chronic, stable. Cont [place], duloxetine and risperidal per home regimen. (12) Seizure disorder: Plan: history of seizure disorder as per records, history of traumatic SAH cont keppra per home regimen SCDs given ongoing blood loss anemia Full code Dispo-rehab per therapy recommendation. I spent a total of60 minutes coordinating, documenting, and providing care for this patient excluding time spent in the performance of separately billed services [facility] and Anticipated Discharge Date Admission Date: April 01, 2023 Subjective 77 yo F presents with sepsis 2/2 E coli bacteremia 2/2 pyelonephritis feeling well today no issues asking for water denies pain/dysuria/fever Review of Systems Review of Systems: All systems were reviewed and negative except as indicated on HPI above. Physical Exam Physical Exam: CONSTITUTIONAL: WNWD, vitals as above, generally well-appearing, NAD EYES: normal conjunctivae, no scleral icterus ENT: external ear and nose normal NECK: trachea midline RESPIRATORY: clear to auscultation bilaterally, no crackles, rales or wheezes, normal respiratory effort CARDIOVASCULAR: regular rate and rhythm, S1 and 2 heard without murmurs, gallops or rubs, no JVD, no peripheral edema CHEST: inspection of chest was normal GASTROINTESTINAL: soft, nontender, ND, no guarding MUSCULOSKELETAL: generalized weakness, can sit up independently in bed, head is normocephalic and atraumatic SKIN; Warm and dry NEUROLOGIC: CN 2-12 grossly intact, no sensory deficit, normal cognition, normal speech, no tremor PSYCHIATRIC: alert cooperative and oriented to person, place and time. Euthymic mood, makes good eye contact, language grossly intact, recent and remote memory grossly intact. Results & Data Results & Data Vital Signs (Past 12 Hours) Vital Signs Temp Pulse Resp BP Pulse Ox Pulse Ox O2 Del Method 04/04/23 08:07 98 04/04/23 07:30 36.5 C 77 15 120/63 79 L Room Air 04/04/23 02:24 36.4 C L 79 20 130/70 99 Nasal Cannula 04/03/23 23:37 36.5 C 78 20 115/67 99 Room Air O2 Del Method O2 Flow Rate O2 Flow Rate 04/04/23 08:07 Nasal Cannula 3 04/04/23 07:30 04/04/23 02:24 3 04/03/23 23:37 Laboratory Results Short CBC 04/04/23 Range/Units 05:49 WBC 2.61 L (4.8-10.8) K/ul Hgb 7.9 L (12.0-16.0) g/dl Hct 26.2 L (37.0-47.0) % Plt Count 151 (130-400) K/uL BMP 04/04/23 05:49 Sodium 134 L Potassium 3.8 Chloride 106 Carbon Dioxide 22 BUN 14 Creatinine 0.52 L Glucose 143 H Calcium 8.6 Diagnostic Findings Chest X-Ray 04/04/23 07:00 XR chest 1V portable HISTORY: persistent hypoxia COMPARISON: Chest 04/01/2023. FINDINGS: No pneumothorax. The cardiac silhouette remains mildly enlarged. There is a left subclavian Port-A-Cath which terminates in the SVC. Postoperative changes again noted within the right shoulder. There is an old, healed left clavicle fracture and old left rib fractures. No evidence for pulmonary edema. A few bibasilar linear densities favor subsegmental atelectasis. Otherwise, no new focal lung consolidations to suggest a pneumonia. Stable mild elevation of the right hemidiaphragm. IMPRESSION: No acute process. ACT 112: Negative or not required by law. Electronically signed by: Fausto Angel M.D. 04/04/2023 7:36 AM Medications Administered Current Inpatient Medications Acetaminophen (Acetaminophen 325 Mg Tab) 325 mg PO Q6 PRN PRN Reason: Pain Stop: 05/01/23 02:19 Aripiprazole (Aripiprazole 5 Mg Tab) 5 mg PO QAM [facility] Stop: 05/01/23 08:59 Last Admin: 04/04/23 08:11 Dose: 5 mg Dextrose (Dextrose 50% 50 Ml Syringe) 25 - 50 ml IV UD PRN; Protocol PRN Reason: Hypoglycemia Protocol Stop: 05/01/23 00:21 Duloxetine HCl (Duloxetine Hcl 60 Mg Cap) 60 mg PO UD [facility] Stop: 05/01/23 02:19 Ezetimibe (Ezetimibe 10 Mg Tablet) 10 mg PO QAM [facility] Stop: 05/03/23 08:59 Last Admin: 04/04/23 08:11 Dose: 10 mg Empagliflozin (Empagliflozin 10 Mg Tab) 10 mg PO QAM [facility] Stop: 05/03/23 08:59 Last Admin: 04/04/23 08:11 Dose: 10 mg Gabapentin (Gabapentin 100 Mg Cap) 100 mg PO TID [facility] Stop: 05/02/23 20:59 Last Admin: 04/04/23 08:11 Dose: 100 mg Glucagon (Glucagon For Inj 1 Mg Vial) 1 mg SQ UD PRN; Protocol PRN Reason: Hypoglycemia Protocol Stop: 05/01/23 00:21 Glucose (Glucose 10 Tab/Tube) 4 - 8 tab PO UD PRN; Protocol PRN Reason: Hypoglycemia Treatment Stop: 05/01/23 00:21 Glucose (Glucose 40% Gel 15 Gm Tube) 15 - 30 gm PO UD PRN; Protocol PRN Reason: Hypoglycemia Protocol Stop: 05/01/23 00:21 Promethazine HCl 6.25 mg/ (Sodium Chloride) 50.25 mls @ 201 mls/hr IV Q6H PRN PRN Reason: Nausea And Vomiting Stop: 05/01/23 03:20 Last Infusion: 04/01/23 04:11 Dose: Infused Ceftriaxone Sodium 2,000 mg/ (Dextrose) 70 mls @ 100 mls/hr IV Q24H [facility]; Protocol Stop: 04/16/23 09:59 Last Infusion: 04/03/23 10:31 Dose: Infused Insulin Aspart (Insulin Aspart Per Unit Charge) 0 units SC ACHS [facility]; Protocol Stop: 05/01/23 19:59 Last Admin: 04/04/23 08:10 Dose: 22 units Insulin Aspart (Insulin Aspart Per Unit Charge) 0 units SC 0000,[id number] [facility]; Protocol Stop: 04/05/23 04:01 Insulin Glargine (Lantus Per Unit Charge) 70 units SC NOW ONE Stop: 04/04/23 12:31 Latanoprost (Latanoprost 0.005% Op Soln 2.5 Ml Btl) 1 drops OP HS [facility] Stop: 05/01/23 20:59 Last Admin: 04/03/23 20:24 Dose: 1 drops Levetiracetam (Levetiracetam 500 Mg Tab) 1,000 mg PO AMHS [facility] Stop: 05/01/23 08:59 Last Admin: 04/04/23 08:10 Dose: 1,000 mg Levothyroxine Sodium (Levothyroxine Sodium 25 Mcg Tablet) 25 mcg PO MoTuWeThFrSa@629 [facility] Stop: 05/01/23 06:29 Last Admin: 04/04/23 06:03 Dose: 25 mcg Levothyroxine Sodium (Levothyroxine Sodium 50 Mcg Tablet) 50 mcg PO Delgado@30 [facility] Stop: 05/05/23 06:29 [place] Carbonate ([place] Carbonate 300 Mg Tab) 300 mg PO [facility] Stop: 05/01/23 20:59 Last Admin: 04/03/23 20:25 Dose: 300 mg Losartan Potassium (Losartan Potassium 50 Mg Tab) [facility] [place] Stop: 05/01/23 08:59 Last Admin: 04/01/23 09:12 Dose: 50 mg Miscellaneous (Carbohydrates For Hypoglycemia ) 15 - 30 gm PO UD PRN PRN Reason: Hypoglycemia Protocol Stop: 05/01/23 00:21 Miscellaneous Information (Pharmacy Glycemic Mgmt Consult) 1 each N/A UD PRN; Protocol PRN Reason: Consult Stop: 05/01/23 08:32 Multivitamins (Multivitamin Tab) [facility] [place] Stop: 05/01/23 08:59 Last Admin: 04/04/23 08:11 Dose: 1 tab Nystatin (Nystatin Powder 15gm Btl) 1 appln EXT BID [facility] Stop: 05/01/23 03:29 Last Admin: 04/04/23 08:12 Dose: 1 appln Risperidone (Risperidone 0.5 Mg Tablet) 0.5 mg PO [facility] Stop: 05/01/23 20:59 Last Admin: 04/03/23 20:25 Dose: 0.5 mg Thiamine HCl (Thiamine Hcl 100 Mg Tab) 100 [facility] [place] Stop: 05/01/23 08:59 Last Admin: 04/04/23 08:11 Dose: 100 mg Trazodone HCl (Trazodone Hcl 100 Mg Tab) 100 mg PO HS [facility] Stop: 05/02/23 20:59 Last Admin: 04/03/23 20:25 Dose: 100 mg
[2023-04-04] MEDS ORDERED: LANTUS PER UNIT CHARGE SC ONE (12:30)
[2023-04-04] MEDS ORDERED: OPTIRAY 320 500ml IV ONE (16:01)
--- NOTE | 2023-04-04 17:43 | CT Scan Report ---
CHEST CTA for PULMONARY ARTERIES CT DOSE: 364.80 mGy.cm HISTORY: Shortness of breath. TECHNIQUE: Multiaxial CT images of the chest were performed following the intravenous administration of contrast to evaluate the pulmonary arteries. Maximal intensity projection images were also obtaine d. A dose lowering technique was utilized adhering to the principles of ALARA. COMPARISON STUDY: Abdomen and pelvis CT 04/01/2023. Chest CTA 08/31/2019. FINDINGS: Old sternal fracture and multiple old superior endplate compression deformities within the thoracic spine. There are multiple old bilateral rib fractures. There is an old left clavicle fractur e. No acute fractures identified within the chest. A left subclavian Port-A-Cath terminates in the SV C. Limited views of the upper abdomen demonstrate normal liver and spleen. There are trace bilateral pleural effusions. No pericardial effusion. The heart is mildly enlarged. Normal esophagus. The thyro id gland enhances normally. No mediastinal or hilar lymphadenopathy. No evidence for an aortic dissec tion. No change in the ductus diverticulum along the undersurface of the aortic arch. The majority of the segmental/subsegmental pulmonary arteries are nondiagnostic due to the respiratory motion artifa ct. However, the remaining visualized pulmonary arteries show no filling defects to suggest a pulmona ry embolus. The central airways are patent. Motion artifact results in suboptimal evaluation of the l ungs. Stable linear scarlike density within the left lung apex. Stable linear densities within the ri ght lung anteriorly also favoring scarring. Small areas of consolidation within the bilateral lower l obes posteriorly are nonspecific but favor compressive atelectasis from the pleural effusions. IMPRESSION: 1. No evidence for a pulmonary embolus with limitations as described above. 2. Mild cardiomegaly, unchanged. 3. Trace bilateral pleural effusions. 4. Small areas of consolidation within the bilateral lower lobes posteriorly are nonspecific but favo r compressive atelectasis from the pleural effusions. 5. Multiple old fractures seen throughout the chest. No acute fractures identified. 6. Additional findings as described above. ACT 112: Negative or not required by law. Electronically signed by: Fausto Angel M.D. 04/04/2023 5:41 PM
[2023-04-04] MEDS: traZODone HCL 100 MG TAB PO SCH (20:23)
[2023-04-04] MEDS: LATANOPROST 0.005% OP SOLN 2.5 ML BTL OP SCH (20:24)
[2023-04-04] MEDS: risperiDONE 0.5 MG TABLET PO SCH (20:24)
[2023-04-04] MEDS: LITHIUM CARBONATE 300 MG TAB PO SCH (20:24)
[2023-04-04 21:45] LABS: Hematocrit (blood only) 26.3 % (37.0-47.0)
[2023-04-05] MEDS: INSULIN ASPART PER UNIT CHARGE SC SCH ×6 (00:29→21:21)
[2023-04-05] MEDS ORDERED: LEVOTHYROXINE SODIUM 50 MCG TABLET PO SCH (06:30)
[2023-04-05] MEDS: NYSTATIN POWDER 15GM BTL EXT SCH ×2 (08:29→20:36)
[2023-04-05] MEDS: ARIPiprazole 5 MG TAB PO SCH (08:30)
[2023-04-05] MEDS: EZETIMIBE 10 MG TABLET PO SCH (08:30)
[2023-04-05] MEDS: levETIRAcetam 500 MG TAB PO SCH ×2 (08:30→20:35)
[2023-04-05] MEDS: EMPAGLIFLOZIN 10 MG TAB PO SCH (08:30)
[2023-04-05] MEDS: MULTIVITAMIN TAB PO SCH (08:30)
[2023-04-05] MEDS: GABAPENTIN 100 MG CAP PO SCH ×3 (08:30→20:35)
[2023-04-05] MEDS: THIAMINE HCL 100 MG TAB PO SCH (08:30)
--- NOTE | 2023-04-05 09:08 | Hospitalist Progress Note ---
Date of Service April 05, 2023 Assessment & Plan (1) Sepsis: (2) Bacteremia: Plan: gram negative bacteremia causing sepsis picture on admission. 2/2 pyelonephritis and likely from E coli Cont ceftriaxone daily, await further recommendations from ID specialist after the weekend (3) Acute pyelonephritis: Plan: UTI symptoms x 2 months, Bacteremia 5/2 blood culture positive for gram-negative bacilli 5/2 urine culture positive for zhao sensitive E coli Cefepime--> Ceftriaxone. Repeat blood cultx still pending ID consulted, but no definitive recommendations were made and ID is currently unavailable. Will continue ceftriaxone through the weekend until we can better elucidate the plan with ID on Thursday. (4) Encephalopathy acute: Plan: Multifactorial: Hyperglycemic crisis, history DM 2 insulin requiring, reasonable control as of recent hemoglobin A1c of 7.2 every 2022 Complicated UTI, bacteremia, possible sepsis Hyponatremia (corrected serum sodium of 129 for serum glucose of 527) Home neuropsychotropic meds contributory, hx ADD/bipolar disorder/OCD as per records Initially held gabapentin, Remeron, trazodone until mentation back to baseline restarted trazodone, gabapentin and remeron on 04/02 doing well today from a mental status standpoint. (5) Diabetes mellitus with hyperglycemia: Plan: Hyperglycemia, DM Already received IVF since admission, IV and subq insulin - blood glucose still not controlled - Glycemic pharmacy consulted , still with some difficulty managing (glucose on 04/02 is 374, 5/ at lunch again went into the 300s) -cont glycemic pharmacist efforts and may need to temporarily utilize an insulin drip. -A1C is 6.1 reflecting good overall control. (6) Anemia due to chronic blood loss: Plan: Acute on chronic anemia secondary to painless LGIB hx colonic angiectasia, hemorrhoids, diverticulosis, radiation proctitis as per records cdiff is negative with stool culture negative. CT a/p with no clear cause for bleeding. advanced diet as tolerated. She required 1 unit pRBCs just after admission and overall H/H has remained stable Pt denies any blood per rectum today Continue supportive care and blood transfusions as needed for Hb<7 (7) Disorders of fluid, electrolyte, and acid-base balance: Plan: moderate-severe hyponatremia on admission which corrected. It appears she was likey in DKA on presentation given hyperglycemia, urine ketones, anion gap acidosis. Per nephrology, control of infction and blood glucose should be the clinical priority, not the hyponatremia. (8) Hypoxia: Plan: Unclear etiology with clear CXR and no overt hypervolemia on exam. Possibly related to anemia. CXR consistently clear. CTA chest pending. Cont supplemntal oxygen. Notably RN reported that her sat dropped to 78% this am when off oxygen. (9) Hypertension: Plan: chronic controlled, losartan on hold with recent contrast administration. Cont to hold at this time per nephrology. (10) Cirrhosis: Plan: hx cirrhosis, no overt decompensation (11) Bipolar 1 disorder: Plan: chronic, stable. Cont [place], duloxetine and risperidal per home regimen. (12) Seizure disorder: Plan: history of seizure disorder as per records, history of traumatic SAH cont keppra per home regimen SCDs given ongoing blood loss anemia Full code Dispo-rehab per therapy recommendation. I spent a total of60 minutes coordinating, documenting, and providing care for this patient excluding time spent in the performance of separately billed services Kym Miner DO [facility] Hospitalist Admission and Anticipated Discharge Date Admission Date: April 01, 2023 Subjective 77 yo F presents with sepsis 2/2 E coli bacteremia 2/2 pyelonephritis feeling well today no issues denies pain/dysuria/fever Review of Systems Review of Systems: All systems were reviewed and negative except as indicated on HPI above. Physical Exam Physical Exam: CONSTITUTIONAL: WNWD, vitals as above, generally well-appearing, NAD EYES: normal conjunctivae, no scleral icterus ENT: external ear and nose normal NECK: trachea midline RESPIRATORY: clear to auscultation bilaterally, no crackles, rales or wheezes, normal respiratory effort CARDIOVASCULAR: regular rate and rhythm, S1 and 2 heard without murmurs, gallops or rubs, no JVD, no peripheral edema CHEST: inspection of chest was normal GASTROINTESTINAL: soft, nontender, ND, no guarding MUSCULOSKELETAL: generalized weakness, can sit up independently in bed, head is normocephalic and atraumatic SKIN; Warm and dry NEUROLOGIC: CN 2-12 grossly intact, no sensory deficit, normal cognition, normal speech, no tremor PSYCHIATRIC: alert cooperative and oriented to person, place and time. Euthymic mood, makes good eye contact, language grossly intact, recent and remote memory grossly intact. Results & Data Results & Data Vital Signs (Past 12 Hours) Vital Signs Temp Pulse Pulse Resp BP Pulse Ox O2 Del Method 04/05/23 06:36 36.3 C L 73 18 123/76 98 Nasal Cannula 04/05/23 02:45 36.3 C L 70 20 114/67 99 Nasal Cannula 04/04/23 23:11 36.6 C 69 18 126/69 Room Air 04/04/23 21:56 68 O2 Flow Rate 04/05/23 06:36 2 04/05/23 02:45 1 04/04/23 23:11 04/04/23 21:56 Laboratory Results Short CBC 04/04/23 Range/Units 21:34 Hgb 8.0 L (12.0-16.0) g/dl Hct 26.3 L (37.0-47.0) % Medications Administered Current Inpatient Medications Acetaminophen (Acetaminophen 325 Mg Tab) 325 mg PO Q6 PRN PRN Reason: Pain Stop: 05/01/23 02:19 Aripiprazole (Aripiprazole 5 Mg Tab) 5 mg PO QAM [facility] Stop: 05/01/23 08:59 Last Admin: 04/05/23 08:30 Dose: 5 mg Dextrose (Dextrose 50% 50 Ml Syringe) 25 - 50 ml IV UD PRN; Protocol PRN Reason: Hypoglycemia Protocol Stop: 05/01/23 00:21 Duloxetine HCl (Duloxetine Hcl 60 Mg Cap) 60 mg PO UD [facility] Stop: 05/01/23 02:19 Ezetimibe (Ezetimibe 10 Mg Tablet) 10 mg PO QAM [facility] Stop: 05/03/23 08:59 Last Admin: 04/05/23 08:30 Dose: 10 mg Empagliflozin (Empagliflozin 10 Mg Tab) 10 mg PO QAM [facility] Stop: 05/03/23 08:59 Last Admin: 04/05/23 08:30 Dose: 10 mg Gabapentin (Gabapentin 100 Mg Cap) 100 mg PO TID [facility] Stop: 05/02/23 20:59 Last Admin: 04/05/23 08:30 Dose: 100 mg Glucagon (Glucagon For Inj 1 Mg Vial) 1 mg SQ UD PRN; Protocol PRN Reason: Hypoglycemia Protocol Stop: 05/01/23 00:21 Glucose (Glucose 10 Tab/Tube) 4 - 8 tab PO UD PRN; Protocol PRN Reason: Hypoglycemia Treatment Stop: 05/01/23 00:21 Glucose (Glucose 40% Gel 15 Gm Tube) 15 - 30 gm PO UD PRN; Protocol PRN Reason: Hypoglycemia Protocol Stop: 05/01/23 00:21 Promethazine HCl 6.25 mg/ (Sodium Chloride) 50.25 mls @ 201 mls/hr IV Q6H PRN PRN Reason: Nausea And Vomiting Stop: 05/01/23 03:20 Last Infusion: 04/01/23 04:11 Dose: Infused Ceftriaxone Sodium 2,000 mg/ (Dextrose) 70 mls @ 100 mls/hr IV Q24H [facility]; Protocol Stop: 04/16/23 09:59 Last Infusion: 04/04/23 10:32 Dose: Infused Insulin Aspart (Insulin Aspart Per Unit Charge) 0 units SC ACHS [facility]; Protocol Stop: 05/01/23 19:59 Last Admin: 04/05/23 08:29 Dose: 16 units Latanoprost (Latanoprost 0.005% Op Soln 2.5 Ml Btl) 1 drops OP HS [facility] Stop: 05/01/23 20:59 Last Admin: 04/04/23 20:24 Dose: 1 drops Levetiracetam (Levetiracetam 500 Mg Tab) 1,000 mg PO AMHS [facility] Stop: 05/01/23 08:59 Last Admin: 04/05/23 08:30 Dose: 1,000 mg Levothyroxine Sodium (Levothyroxine Sodium 25 Mcg Tablet) 25 mcg PO MoTuWeThFrSa@0630 [facility] Stop: 05/01/23 06:29 Last Admin: 04/04/23 06:03 Dose: 25 mcg Levothyroxine Sodium (Levothyroxine Sodium 50 Mcg Tablet) 50 mcg PO [email or web address]@0630 [facility] Stop: 05/05/23 06:29 Last Admin: 04/05/23 06:23 Dose: 50 mcg [place] Carbonate ([place] Carbonate 300 Mg Tab) 300 mg PO HS [facility] Stop: 05/01/23 20:59 Last Admin: 04/04/23 20:24 Dose: 300 mg Losartan Potassium (Losartan Potassium 50 Mg Tab) 50 mg PO QAM [facility] Stop: 05/01/23 08:59 Last Admin: 04/01/23 09:12 Dose: 50 mg Miscellaneous (Carbohydrates For Hypoglycemia ) 15 - 30 gm PO UD PRN PRN Reason: Hypoglycemia Protocol Stop: 05/01/23 00:21 Miscellaneous Information (Pharmacy Glycemic Mgmt Consult) 1 each N/A UD PRN; Protocol PRN Reason: Consult Stop: 05/01/23 08:32 Multivitamins (Multivitamin Tab) 1 tab PO QAM [facility] Stop: 05/01/23 08:59 Last Admin: 04/05/23 08:30 Dose: 1 tab Nystatin (Nystatin Powder 15gm Btl) 1 appln EXT BID [facility] Stop: 05/01/23 03:29 Last Admin: 04/05/23 08:29 Dose: 1 appln Risperidone (Risperidone 0.5 Mg Tablet) 0.5 mg PO [facility] Stop: 05/01/23 20:59 Last Admin: 04/04/23 20:24 Dose: 0.5 mg Thiamine HCl ([facility]iamine Hcl 100 Mg Tab) [facility] Stop: 05/01/23 08:59 Last Admin: 04/05/23 08:30 Dose: 100 mg Trazodone HCl (Trazodone Hcl 100 Mg Tab) 100 mg PO [facility] Stop: 05/02/23 20:59 Last Admin: 04/04/23 20:23 Dose: 100 mg
[2023-04-05] MEDS: cefTRIAXone SODIUM 2,000 MG in DEXTROSE 5% 50 ML IV SCH (09:22)
--- NOTE | 2023-04-05 09:53 | Pharmacy Report ---
Pharmacy Glycemic Short Note 2 - Date of Service April 05, 2023 - Glycemic Short BSG Results (Last 24 hours): 04/04/23 04/04/23 04/04/23 11:15 16:42 19:55 POC Glucose 205 H 109 H 178 H 04/05/23 04/05/23 04/05/23 00:13 04:09 07:40 POC Glucose 102 H 111 H 119 H OUTPATIENT ANTIDIABETIC REGIMEN: * Lantus 54 units SC HS * Metformin 1500 mg PO daily * Jardiance 10 mg PO daily HbA1c: 6.1% (03/31/23) ASSESSMENT: 04/05/23 * BSGs yesterday were [phone] mg/dL and overnight were 102-111 mg/dL. * Patient received 120 units (70 units of basal and 50 units of bolus). * Fasting today is 119 mg/dL. * Yesterday, had begun transition to HS Lantus dosing as this is what patient does at home. Yesterday, Lantus given at noon. Today will be given at HS. Reduce slightly to 60 units since fasting significantly improved today. * Continue Novolog. 04/03/23: * BSGs remained elevated yesterday (received 118 units of insulin ~50/50 basal/bolus split) * Will give full daily basal dose this morning and continue tightened Novolog parameters * will tighten further at lunchtime if BSGs still > 200 mg/dL * Home empagliflozin restarted by hospitalist for this morning - should also help in better glycemic management today 04/02/23: * BSGs trended down while on insulin infusion, transitioned back to SC overnight * Unclear reason for apparent profound insulin resistance (besides infection) * Will adjust SC regimen as needed 04/01/23: * BR is a 77 year old female who presented to ED on 03/31 for evaluation of altered mental status * Blood and urine cultures are positive for gram-negative bacilli -E.coli per [employer] results * Empirically on cefepime at this time * Pharmacy consulted for glycemic management this morning due to persistently elevated BSGs since time of admission * Prior to consult, patient received 3 doses of Lantus overnight (30 units, 10 units, and 20 units for a total of 60 units), 10 units of IV insulin, and 20 units of Novolog. * BSG recheck mid-morning of 495 mg/dL - discussed with hospitalist and will initiated insulin infusion PLAN FOR INPATIENT GLYCEMIC CONTROL: * Jardiance 10 mg PO daily * Basal insulin * Lantus 60 units SQ HS * Bolus insulin * NovoLog per scale ACHS or Q6hrs while NPO * Goal Range: Low 110 mg/dL - High 140 mg/dL * Correction Factor: 12 mg/dL/unit * Nutritional / Prandial insulin per carb ratio of 1 unit per 4 grams CHO consumed
[2023-04-05] MEDS: traZODone HCL 100 MG TAB PO SCH (20:34)
[2023-04-05] MEDS: LITHIUM CARBONATE 300 MG TAB PO SCH (20:34)
[2023-04-05] MEDS: risperiDONE 0.5 MG TABLET PO SCH (20:34)
[2023-04-05] MEDS: LATANOPROST 0.005% OP SOLN 2.5 ML BTL OP SCH (20:36)
[2023-04-05] MEDS ORDERED: LANTUS PER UNIT CHARGE SC SCH (21:00)
[2023-04-06] MEDS: LEVOTHYROXINE SODIUM 25 MCG TABLET PO SCH (06:03)
[2023-04-06] MEDS: GABAPENTIN 100 MG CAP PO SCH ×3 (08:00→20:22)
[2023-04-06] MEDS ORDERED: PNEUMOCOCCAL POLYSACCHARIDES 25 MCG/0.5 ML VIAL/SYR IM ONE (08:00)
[2023-04-06] MEDS: MULTIVITAMIN TAB PO SCH (08:01)
[2023-04-06] MEDS: THIAMINE HCL 100 MG TAB PO SCH (08:01)
[2023-04-06] MEDS: levETIRAcetam 500 MG TAB PO SCH ×2 (08:01→20:22)
[2023-04-06] MEDS: EMPAGLIFLOZIN 10 MG TAB PO SCH (08:01)
[2023-04-06] MEDS: EZETIMIBE 10 MG TABLET PO SCH (08:01)
[2023-04-06] MEDS: NYSTATIN POWDER 15GM BTL EXT SCH ×2 (08:01→20:23)
[2023-04-06] MEDS: ARIPiprazole 5 MG TAB PO SCH (08:01)
[2023-04-06] MEDS: INSULIN ASPART PER UNIT CHARGE SC SCH ×4 (08:23→21:29)
[2023-04-06] MEDS: cefTRIAXone SODIUM 2,000 MG in DEXTROSE 5% 50 ML IV SCH (09:12)
[2023-04-06 10:17] LABS: Hemoglobin 8.2 g/dl (12.0-16.0); Mean Corpuscular Hemoglobin 25.9 pg (25.0-34.0); Mean Corpuscular Hgb Conc 29.3 g/dL (32.0-36.0); Mean Corpuscular Volume 88.6 fL (80.0-100.0); Mean Platelet Volume 8.8 fL (9.4-12.4); Platelet Count 158 K/uL (130-400); RDW Standard Deviation 58.3 fL (36.4-46.3); Red Blood Count 3.16 M/uL (4.20-5.40); White Blood Count 3.26 K/ul (4.8-10.8)
[2023-04-06 10:39] LABS: BUN Creatinine Ratio 19.1 (10-20); Calcium 8.4 mg/dl (8.6-10.3); Creatinine Clr Calc Pharmacy 95.2 ml/min; Est GFR (African American) 111.2 ml/min; Est GFR (Non-African American) 95.9 ml/min; Potassium 3.8 mmol/L (3.5-5.1)
--- NOTE | 2023-04-06 14:30 | Hospitalist Progress Note ---
Date of Service April 06, 2023 Assessment & Plan (1) Sepsis: (2) Bacteremia: Plan: gram negative bacteremia causing sepsis picture on admission. 2/2 pyelonephritis and likely from E coli Cont ceftriaxone daily, await further recommendations from ID specialist after the weekend (3) Acute pyelonephritis: Plan: UTI symptoms x 2 months, Bacteremia 5/2 blood culture positive for gram-negative bacilli 5/2 urine culture positive for zhao sensitive E coli Cefepime--> Ceftriaxone. ID consulted, but no definitive recommendations were made and ID is currently unavailable. Change to oral levaquin to complete 14 day course. (4) Encephalopathy acute: Plan: Multifactorial: Hyperglycemic crisis, history DM 2 insulin requiring, reasonable control as of recent hemoglobin A1c of 7.2 every 2022 Complicated UTI, bacteremia, possible sepsis Hyponatremia (corrected serum sodium of 129 for serum glucose of 527) Home neuropsychotropic meds contributory, hx ADD/bipolar disorder/OCD as per records Initially held gabapentin, Remeron, trazodone until mentation back to baseline restarted trazodone, gabapentin and remeron on 04/02 doing well today from a mental status standpoint. (5) Diabetes mellitus with hyperglycemia: Plan: Hyperglycemia, DM Already received IVF since admission, IV and subq insulin - blood glucose still not controlled - Glycemic pharmacy consulted , still with some difficulty managing (glucose on 04/02 is 374, 04/03 at lunch again went into the 300s) -cont glycemic pharmacist efforts and may need to temporarily utilize an insulin drip. -A1C is 6.1 reflecting good overall control. (6) Anemia due to chronic blood loss: Plan: Acute on chronic anemia secondary to painless LGIB hx colonic angiectasia, hemorrhoids, diverticulosis, radiation proctitis as per records cdiff is negative with stool culture negative. CT a/p with no clear cause for bleeding. advanced diet as tolerated. She required 1 unit pRBCs just after admission and overall H/H has remained stable Pt denies any blood per rectum today Continue supportive care and blood transfusions as needed for Hb<7 (7) Disorders of fluid, electrolyte, and acid-base balance: Plan: moderate-severe hyponatremia on admission which corrected. It appears she was likey in DKA on presentation given hyperglycemia, urine ketones, anion gap acidosis. Per nephrology, control of infction and blood glucose should be the clinical priority, not the hyponatremia. (8) Hypoxia: Plan: Unclear etiology with clear CXR and no overt hypervolemia on exam. Possibly related to anemia. CXR consistently clear. CTA chest pending. Cont supplemntal oxygen. Notably RN reported that her sat dropped to 78% this am when off oxygen. (9) Hypertension: Plan: chronic controlled, losartan on hold with recent contrast administration. Cont to hold at this time per nephrology. (10) Cirrhosis: Plan: hx cirrhosis, no overt decompensation (11) Bipolar 1 disorder: Plan: chronic, stable. Cont [place], duloxetine and risperidal per home regimen. (12) Seizure disorder: Plan: history of seizure disorder as per records, history of traumatic SAH cont keppra per home regimen SCDs given ongoing blood loss anemia Full code Dispo-rehab per therapy recommendation. I spent a total of60 minutes coordinating, documenting, and providing care for this patient excluding time spent in the performance of separately billed services DO Christa Aleman [place] Hospitalist Admission and Anticipated Discharge Date Admission Date: April 01, 2023 Subjective 77 yo F presents with sepsis 2/2 E coli bacteremia 2/2 pyelonephritis feeling well today no issues denies pain/dysuria/fever Review of Systems Review of Systems: All systems were reviewed and negative except as indicated on HPI above. Physical Exam Physical Exam: CONSTITUTIONAL: WNWD, vitals as above, generally well-appearing, NAD EYES: normal conjunctivae, no scleral icterus ENT: external ear and nose normal NECK: trachea midline RESPIRATORY: clear to auscultation bilaterally, no crackles, rales or wheezes, normal respiratory effort CARDIOVASCULAR: regular rate and rhythm, S1 and 2 heard without murmurs, gallops or rubs, no JVD, no peripheral edema CHEST: inspection of chest was normal GASTROINTESTINAL: soft, nontender, ND, no guarding MUSCULOSKELETAL: generalized weakness, can sit up independently in bed, head is normocephalic and atraumatic SKIN; Warm and dry NEUROLOGIC: CN 2-12 grossly intact, no sensory deficit, normal cognition, normal speech, no tremor PSYCHIATRIC: alert cooperative and oriented to person, place and time. Euthymic mood, makes good eye contact, language grossly intact, recent and remote memory grossly intact. Results & Data Results & Data Vital Signs (Past 12 Hours) Vital Signs Temp Pulse Resp BP Pulse Ox O2 Del Method 04/06/23 07:20 Room Air 04/06/23 07:48 36.5 C 67 16 119/67 95 Room Air 04/06/23 02:56 Room Air Laboratory Results Short CBC 04/06/23 Range/Units 09:53 WBC 3.26 L (4.8-10.8) K/ul Hgb 8.2 L (12.0-16.0) g/dl Hct 28.0 L (37.0-47.0) % Plt Count 158 (130-400) K/uL BMP 04/06/23 09:53 Sodium 138 Potassium 3.8 Chloride 108 H Carbon Dioxide 25 BUN 9 Creatinine 0.47 L Glucose 131 H Calcium 8.4 L Medications Administered Current Inpatient Medications Acetaminophen (Acetaminophen 325 Mg Tab) 325 mg PO Q6 PRN PRN Reason: Pain Stop: 05/01/23 02:19 Aripiprazole (Aripiprazole 5 Mg Tab) 5 mg PO QAM [facility] Stop: 05/01/23 08:59 Last Admin: 04/06/23 08:01 Dose: 5 mg Dextrose (Dextrose 50% 50 Ml Syringe) 25 - 50 ml IV UD PRN; Protocol PRN Reason: Hypoglycemia Protocol Stop: 05/01/23 00:21 Duloxetine HCl (Duloxetine Hcl 60 Mg Cap) 60 mg PO UD [facility] Stop: 05/01/23 02:19 Ezetimibe (Ezetimibe 10 Mg Tablet) 10 mg PO QAM [facility] Stop: 05/03/23 08:59 Last Admin: 04/06/23 08:01 Dose: 10 mg Empagliflozin (Empagliflozin 10 Mg Tab) 10 mg PO QAM [facility] Stop: 05/03/23 08:59 Last Admin: 04/06/23 08:01 Dose: 10 mg Gabapentin (Gabapentin 100 Mg Cap) 100 mg PO TID [facility] Stop: 05/02/23 20:59 Last Admin: 04/06/23 13:28 Dose: 100 mg Glucagon (Glucagon For Inj 1 Mg Vial) 1 mg SQ UD PRN; Protocol PRN Reason: Hypoglycemia Protocol Stop: 05/01/23 00:21 Glucose (Glucose 10 Tab/Tube) 4 - 8 tab PO UD PRN; Protocol PRN Reason: Hypoglycemia Treatment Stop: 05/01/23 00:21 Glucose (Glucose 40% Gel 15 Gm Tube) 15 - 30 gm PO UD PRN; Protocol PRN Reason: Hypoglycemia Protocol Stop: 05/01/23 00:21 Promethazine HCl 6.25 mg/ (Sodium Chloride) 50.25 mls @ 201 mls/hr IV Q6H PRN PRN Reason: Nausea And Vomiting Stop: 05/01/23 03:20 Last Infusion: 04/01/23 04:11 Dose: Infused Ceftriaxone Sodium 2,000 mg/ (Dextrose) 70 mls @ 100 mls/hr IV Q24H [facility]; Protocol Stop: 04/16/23 09:59 Last Infusion: 04/06/23 09:58 Dose: Infused Insulin Aspart (Insulin Aspart Per Unit Charge) 0 units SC ACHS [facility]; Protocol Stop: 05/01/23 19:59 Last Admin: 04/06/23 12:11 Dose: 10 units Insulin Glargine (Lantus Per Unit Charge) 40 units SC [facility] Stop: 05/06/23 20:59 Latanoprost (Latanoprost 0.005% Op Soln 2.5 Ml Btl) 1 drops OP [facility] Stop: 05/01/23 20:59 Last Admin: 04/05/23 20:36 Dose: 1 drops Levetiracetam (Levetiracetam 500 Mg Tab) 1,000 mg PO AMHS [facility] Stop: 05/01/23 08:59 Last Admin: 04/06/23 08:01 Dose: 1,000 mg Levothyroxine Sodium (Levothyroxine Sodium 25 Mcg Tablet) 25 mcg PO MoTuWeThFrSa@0630 [facility] Stop: 05/01/23 06:29 Last Admin: 04/06/23 06:03 Dose: 25 mcg Levothyroxine Sodium (Levothyroxine Sodium 50 Mcg Tablet) 50 mcg PO [email or web address]@0630 [facility] Stop: 05/05/23 06:29 Last Admin: 04/05/23 06:23 Dose: 50 mcg [place] Carbonate ([place] Carbonate 300 Mg Tab) 300 mg PO HS [facility] Stop: 05/01/23 20:59 Last Admin: 04/05/23 20:34 Dose: 300 mg Losartan Potassium (Losartan Potassium 50 Mg Tab) 50 mg PO QAM [facility] Stop: 05/01/23 08:59 Last Admin: 04/01/23 09:12 Dose: 50 mg Miscellaneous (Carbohydrates For Hypoglycemia ) 15 - 30 gm PO UD PRN PRN Reason: Hypoglycemia Protocol Stop: 05/01/23 00:21 Miscellaneous Information (Pharmacy Glycemic Mgmt Consult) 1 each N/A UD PRN; Protocol PRN Reason: Consult Stop: 05/01/23 08:32 Multivitamins (Multivitamin Tab) 1 tab PO QAM [facility] Stop: 05/01/23 08:59 Last Admin: 04/06/23 08:01 Dose: 1 tab Nystatin (Nystatin Powder 15gm Btl) 1 appln EXT BID [facility] Stop: 05/01/23 03:29 Last Admin: 04/06/23 08:01 Dose: 1 appln Risperidone (Risperidone 0.5 Mg Tablet) 0.5 mg PO [facility] Stop: 05/01/23 20:59 Last Admin: 04/05/23 20:34 Dose: 0.5 mg Thiamine HCl (Thiamine Hcl 100 Mg Tab) 100 mg PO QAM [facility] Stop: 05/01/23 08:59 Last Admin: 04/06/23 08:01 Dose: 100 mg Trazodone HCl (Trazodone Hcl 100 Mg Tab) 100 mg PO [facility] Stop: 05/02/23 20:59 Last Admin: 04/05/23 20:34 Dose: 100 mg
[2023-04-06] MEDS ORDERED: levoFLOXacin 750 MG TAB PO SCH (14:45)
[2023-04-06] MEDS: risperiDONE 0.5 MG TABLET PO SCH (20:22)
[2023-04-06] MEDS: LITHIUM CARBONATE 300 MG TAB PO SCH (20:22)
[2023-04-06] MEDS: LATANOPROST 0.005% OP SOLN 2.5 ML BTL OP SCH (20:23)
[2023-04-06] MEDS ORDERED: traZODone HCL 50 MG TAB PO SCH (21:00)
[2023-04-06] MEDS ORDERED: LANTUS PER UNIT CHARGE SC SCH (21:00)
[2023-04-07] MEDS: LEVOTHYROXINE SODIUM 25 MCG TABLET PO SCH (06:21)
[2023-04-07] MEDS: levETIRAcetam 500 MG TAB PO SCH (07:59)
[2023-04-07] MEDS: EZETIMIBE 10 MG TABLET PO SCH (08:00)
[2023-04-07] MEDS: MULTIVITAMIN TAB PO SCH (08:00)
[2023-04-07] MEDS: GABAPENTIN 100 MG CAP PO SCH ×2 (08:00→12:41)
[2023-04-07] MEDS: ARIPiprazole 5 MG TAB PO SCH (08:00)
[2023-04-07] MEDS: THIAMINE HCL 100 MG TAB PO SCH (08:01)
[2023-04-07] MEDS: EMPAGLIFLOZIN 10 MG TAB PO SCH (08:01)
[2023-04-07] MEDS: NYSTATIN POWDER 15GM BTL EXT SCH (08:02)
[2023-04-07] MEDS: INSULIN ASPART PER UNIT CHARGE SC SCH ×2 (08:42→12:41)
[2023-04-07] MEDS ORDERED: CIPROFLOXACIN 500 MG TAB PO SCH (09:00)
--- NOTE | 2023-04-07 12:12 | Discharge Summary ---
Discharge Summary Date of Service April 07, 2023 Notes For Next Care Provider Medication Changes From Visit Cipro 500mg PO BID x 5 more days Admission HPI Per Admitting Provider History obtained from patient, family, and records. Limited history from patient secondary to disorientation. Medical history significant for hypertension, DM2 insulin requiring, history of seizure disorder as per records, history of traumatic SAH, history of hypothyroidism, COPD, remote tobacco abuse, hx cervical cancer status post chemoradiation, cirrhosis, hx of recurrent GI bleed (gastric ulcer, AVMS, colonic angiectasia, hemorrhoids, diverticulosis, history radiation proctitis as per records), ADD/bipolar disorder/OCD as per records, chronic anemia (baseline hemoglobin of 9 January 2023). Last confinement 2018 for her acute cervical spine fracture secondary to unwitnessed fall. No acute surgical intervention. Patient noted to be increasingly confused at home over the last few days. Patient claims to be compliant with home medications. Patient denies headache, chest pain, SOB, diarrhea, dysuria symptoms. Shaking spell noted at home 4 days ago. Blood sugar noted to be 400-500s. Outpatient provider recommended extra tablet of Jardiance. Patient brought to ER for worsening symptoms. Blood sugar noted to be 500s at the ER. Bloody stools noted at the ER. IV insulin and ceftriaxone administered at the ER. MEDICAL HISTORY: As above. 2022 colonoscopy showed localized angioectasias ascending and transverse colon, rectum, sigmoid diverticulosis 2022 EGD showed mild portal hypertensive gastropathy. No varices. SURGICAL HISTORY: Appendectomy, shoulder surgery, catheter placement, dental surgery, BTL, femoral surgery, shoulder surgery, gynecologic procedures FAMILY HISTORY: heart disease. PERSONAL AND SOCIAL HISTORY:Past tobacco abuse, occasional EtOH intake denies abuse. Lives with her , family business. Principal Dx & Hospital Course #1 = Principal Diagnosis (1) Sepsis with metabolic encephalopathy: (2) Bacteremia: (3) Acute pyelonephritis: (4) Diabetes mellitus with hyperglycemia: (5) Anemia due to chronic blood loss: (6) Disorders of fluid, electrolyte, and acid-base balance: (7) Hypoxia: (8) Hypertension: (9) Cirrhosis: (10) Bipolar 1 disorder: (11) Seizure disorder: Plan 77-year-old female with insulin-dependent diabetes presented with sepsis secondary to acute pyelonephritis. She had acute metabolic encephalopathy and initially her neuropsychotropic medications were held. She was found to have hemoglobin of 6.8 with known chronic anemia secondary to persistent lower GI bleed. She has a history of colonic angiectasia and hemorrhoids as well as radiation proctitis per records. She was transfused 1 unit of packed red blood cells and continued on broad-spectrum cefepime. Stool culture was negative for infection. CT of the abdomen pelvis revealed no obvious cause of lower GI bleed. Nephrology was consulted for hyponatremia and acid-base disorders. She was treated for hyperglycemia with insulin. She improved with treatment with mental status resolving to baseline. She was discharged in stable condition to rehab with close primary care follow-up recommended. Cipro was continued at discharge per updated ID recommendations. Discharge Exam CONSTITUTIONAL: WNWD, vitals as above, generally well-appearing, NAD EYES: normal conjunctivae, no scleral icterus ENT: external ear and nose normal NECK: trachea midline RESPIRATORY: clear to auscultation bilaterally, no crackles, rales or wheezes, normal respiratory effort CARDIOVASCULAR: regular rate and rhythm, S1 and 2 heard without murmurs, gallops or rubs, no JVD, no peripheral edema CHEST: inspection of chest was normal GASTROINTESTINAL: soft, nontender, ND, no guarding MUSCULOSKELETAL: generalized weakness, can sit up independently in bed, head is normocephalic and atraumatic SKIN; Warm and dry NEUROLOGIC: CN 2-12 grossly intact, no sensory deficit, normal cognition, normal speech, no tremor PSYCHIATRIC: alert cooperative and oriented to person, place and time. Euthymic mood, makes good eye contact, language grossly intact, recent and remote memory grossly intact. Updated Medication List Medication Instructions Recorded Confirmed Type levetiracetam 1,000 mg tablet 1,000 mg PO AMHS 12/07/18 03/31/23 History (Keppra) levothyroxine 25 mcg tablet See Rx Instructions .Route .COMPLEX 12/07/18 03/31/23 History (Synthroid) loperamide 2 mg tablet 2 mg PO QID PRN Diarrhea 12/07/18 03/31/23 History metformin 750 mg tablet,extended 1,500 mg PO QAM 12/07/18 03/31/23 History release 24 hr mirtazapine 30 mg tablet (Remeron) 30 mg PO HS 12/07/18 03/31/23 History multivitamin 1 tab PO QAM 12/07/18 03/31/23 History thiamine HCl (vitamin B1) 100 mg 100 mg PO QAM 12/07/18 03/31/23 History tablet (Vitamin B-1) iron,carbonyl 65 mg-vitamin C 125 1 tab PO QAM 08/30/19 03/31/23 History mg tablet,delayed release (Vitron-C) albuterol sulfate 90 mcg/actuation 2 puff inhalation Q6 PRN Wheezing 08/31/19 03/31/23 History aerosol inhaler gabapentin 100 mg capsule 100 mg PO TID 09/02/21 03/31/23 History insulin glargine 100 unit/mL (3 54 unit subcut HS 09/02/21 03/31/23 History mL) subcutaneous pen (Lantus Solostar U-100 Insulin) trazodone 100 mg tablet 100 mg PO HS 09/02/21 03/31/23 History acetaminophen 325 mg tablet 325 mg PO Q6 PRN Pain 01/12/23 03/31/23 History (Tylenol) candesartan 16 mg tablet 16 mg PO QAM 01/12/23 03/31/23 History cyanocobalamin (vitamin B-12) 1,000 mcg IM MONTHLY 01/12/23 03/31/23 History 1,000 mcg/mL injection solution empagliflozin 10 mg tablet 10 mg PO QAM 01/12/23 03/31/23 History (Jardiance) ezetimibe 10 mg tablet (Zetia) 10 mg PO QAM 01/12/23 03/31/23 History latanoprost (PF) 0.005 % eye drops 1 drp ophthalmic (eye) HS 01/12/23 03/31/23 History lithium carbonate 300 mg tablet 300 mg PO HS 01/12/23 03/31/23 History aripiprazole 5 mg tablet 5 mg PO QAM 03/31/23 03/31/23 History duloxetine 60 mg capsule,delayed 60 mg PO UD 03/31/23 03/31/23 History release risperidone 1 mg tablet (Risperdal) See Rx Instructions .Route .COMPLEX 03/31/23 03/31/23 History ciprofloxacin HCl 500 mg tablet 500 mg PO BID #10 tabs 04/07/23 Rx Hospital Stay Data Consultations 03/31/23 20:04 ED Decision to Admit Stat 05/03/23 08:35 Consult Infectious Diseases Routine 04/01/23 09:40 Consult Nephrology Routine Diagnostic Imagining Performed 03/31/23 17:46 CT cervical spine wo con Stat CT head/brain wo con Stat 04/01/23 02:11 CT abd pelvis IV con only Urgent 04/04/23 14:04 CT angio chest PE protocol Routine Pending Results Patient Have Any Pending Studies at Discharge: No Discharge Instructions Given to Patient (Per Discharging Provider) Please take all medications as instructed on discharge list below. Please continue the antibiotic until it is complete. It is recommended that you follow-up with your primary care physician within one week of hospital discharge to ensure you are still doing well since returning home. You were found to have anemia in the hospital, in part, a result of your chronic rectal bleeding. You received one unit of packed red blood cells on 04/01/23. It was a pleasure taking care of you! Please call if you have any questions or problems. You can reach a [facility] hospitalist on duty at [facility] 24 hours a day by calling [phone]. Take care of yourself. Kym Miner, [facility] Hospitalist Total Time Total Time Spent Total Time Spent (In Minutes): 60
== END 2023-04-07 14:06 | DRG 871 ==
LOC: ED 17:21 → 2N 04-01 00:20 → SUATTDRO 04-01 00:20 → 2N 04-01 02:14 → 2S 04-01 11:26 → 3N 04-05 11:01

== ENCOUNTER 2023-10-20 15:58 | Inpatient (IN) ==
--- NOTE | 2023-10-20 16:08 | ED Triage Note ---
Date of Service October 20, 2023 History of Present Illness This patient was briefly evaluated while in triage. An abbreviated physical exam was performed. This patient is a 78-year-old Female who presents to the ED for evaluation of being unable to care for herself at home. Here with daughter. Has home health nurse once per week that is not enough. Patient with multiple medical problems. Referred by PCP. recently diagnosed with lung cancer. Daughter reports no acute changes in her health. Physical Exam CONSTITUTIONAL: in no acute pain or distress, resting comfortably SKIN: pink, warm, dry CARDIAC: regular rate and rhythm RESPIRATORY: in no respiratory distress, lungs clear to auscultation NEURO: no focal deficits. alert to person place and president. Does not know year Initial orders for labs and / or imaging were placed and patient was placed in the waiting area until a bed is available. Please see further documentation for the full ED course. MDM / Impression Impression Impression: Cognitive safety issue
--- NOTE | 2023-10-20 16:53 | Emergency Department Note ---
Impression & Plan Cognitive safety issue, Urinary tract infection, Hyperglycemia ED Provider Note NAME: GLYNN DIAZ AGE: 78 SEX: F ARRIVES VIA: Walk-In INFORMANT: Patient ED PROVIDER(S): Charles Espino MD CHIEF COMPLAINT: Placement, referred PLAN: Disposition: Admit MEDICAL DECISION MAKING: The patient is a pleasant 78-year-old woman with a past medical history of bipolar disorder, seizure disorder, diabetes, hyponatremia, encephalopathy who presents to the emergency department via walk-in accompanied by her daughter for evaluation of worsening ability to care for self at home that has progressively worsened and more notable now that her is not home with her as he is admitted to this facility with a critical illness. The patient recently saw her primary care doctor on 10/15 and it was determined that she was not safe to be at home alone and they are attempting to arrange outpatient resources to ensure her safety and while her daughter has been able to stay with her recently as she is on break for the she cannot be there at all times and so when they contacted their doctor's office they referred Emergency Department for admission for placement. Daughter reports that she recently was diagnosed with a urinary tract infection upon follow-up with urology and is currently on Keflex. Otherwise she denies any fevers, chills, cough, congestion, GI symptoms. She has had a poor diet as she mostly has only like to eat yogurt. Otherwise she has been attempting take her medications but has been inconsistent. Of note, the patient did arrive to emergency department during time of high volume, acuity and prolonged emergency department waiting times. Critical pathways initiated from triage. On evaluation in the B pod Sub waiting room the patient is in no acute distress, afebrile with stable vital signs. She has no focal neurologic deficits. She has mild confusion to situation but is alert to self and place. She understands that she does need "more help". She is in agreement with plan for admission. WBC and platelets within normal limits. H/H similar to prior. Initial lactic acid 2.1, nonspecific and otherwise chemistry without metabolic acidosis. Glucose is 271. LFTs unremarkable. Case was discussed with Dr. Garcia, [facility] hospitalist who will evaluate the patient for admission. Triage Nursing notes reviewed and agree them. Prior/external medical records reviewed Vital Signs: reviewed Differential diagnosis: Infection, dehydration, metabolic abnormality, hypo/hyperglycemia, electrolyte disturbance, anemia, hypoxia, cardiac sources, intracerebral event, toxicologic, neurologic, as well as other pathologies. ER treatment provided: See below. Diagnostics interpreted by me: Cardiac Monitoring: An order for continuous cardiac monitoring was placed and demonstrated normal sinus rhythm, 77 bpm, no ectopy. Laboratory studies: See below Imaging studies: See below Consultation(s): Case was discussed with Dr. Garcia, [facility] hospitalist who will evaluate the patient for admission. HPI: The patient is a pleasant 78-year-old woman with a past medical history of bipolar disorder, seizure disorder, diabetes, hyponatremia, encephalopathy who presents to the emergency department via walk-in accompanied by her daughter for evaluation of worsening ability to care for self at home that has progressively worsened and more notable now that her is not home with her as he is admitted to this facility with a critical illness. The patient recently saw her primary care doctor on 10/15 and it was determined that she was not safe to be at home alone and they are attempting to arrange outpatient resources to ensure her safety and while her daughter has been able to stay with her recently as she is on break for the she cannot be there at all times and so when they contacted their doctor's office they referred Emergency Department for admission for placement. Daughter reports that she recently was diagnosed with a urinary tract infection upon follow-up with urology and is currently on Keflex. Otherwise she denies any fevers, chills, cough, congestion, GI symptoms. She has had a poor diet as she mostly has only like to eat yogurt. Otherwise she has been attempting take her medications but has been inconsistent. ROS: See above HPI for pertinent positives & negatives. A total of 10 systems reviewed and were otherwise negative. VITALS:See Below PHYSICAL EXAMINATION: GENERAL: Awake, alert, well-appearing, in no distress HENT: Normocephalic, atraumatic. Oropharynx with dry mucous membranes and otherwise unremarkable. EYES: Normal conjunctiva. Sclera non-icteric. NECK: Supple. No nuchal rigidity. FROM. No JVD. RESPIRATORY: Clear to auscultation. CARDIAC: Regular rate, normal rhythm. Extremities warm and well perfused. Pulses equal. ABDOMEN: Soft, non-distended. No tenderness to palpation. No rebound or guarding. No masses. RECTAL: Deferred. MUSCULOSKELETAL: Chest examination reveals no tenderness. The back is symmetrical on inspection without obvious abnormality. There is no CVA tenderness to palpation. No joint edema. LOWER EXTREMITIES: Calves are equal size bilaterally and non-tender. No edema. No discoloration. NEURO: No focal sensory or motor deficits noted. SKIN: No rash or jaundice noted. Charles Espino MD Past Med/Surg History Medical History History of cervical cancer 2017- s/p chemo and XRT Port-A-Cath in place unsure of type Alcoholic cirrhosis quit drinking in 2017 Anxiety disorder PTSD (post-traumatic stress disorder) History of COVID-19 tested positive on a home test ~Beginning of September 2022. patient unsure of exact date. reports symptoms included: sore throat, cough and headache. resolved currently. Hypothyroidism History of GI bleed Poor historian Memory changes r/t fall "long time ago,I don't know when it was". Alert and oriented, poor historian. Hypertension Asthma RARE RES. INH USE Mood disorder [place] Per PCP records 04/2023- "Pt has remote history of seizure d/o with history of cavernosum. She has been on Keppra without issue. " Seizure disorder grand mal > last one > "years ago" Dyslipidemia Bipolar 1 disorder (04/07/14) Ana (04/07/14) HX OF Intracranial hemorrhage resolved> was from fall (2013) Anemia DM (diabetes mellitus) IDDM Surgical History History of bilateral tubal ligation History of repair of rotator cuff RCR History of esophagogastroduodenoscopy (EGD) History of appendectomy History of open reduction and internal fixation (ORIF) procedure Left Femur ORIF with kody. History of cataract surgery bilateral History of colonoscopy Hx of cervical spine surgery pt denies -- states she hurt her neck during a fall "about 5 years ago". ROM wnl. Family History Other Family history non-contributory No family history of adverse response to anesthesia Social History Smoking Status: Former smoker Tobacco Type: Cigarettes Second Hand Exposure: No; Do You Dip or Chew Tobacco: No; Hx Alcohol Use: Yes (quit 2017) Alcohol type: wine Hx Substance Use: No Preferred Language: Danish Communication Ability: Effective Car Rental Manager Required: No Beliefs That Will Affect Care: None Current Living Situation: Spouse Feels Safe at Home: Yes Assistive Devices: Glasses and Walker Allergies Allergies Allergy/AdvReac Type Severity Reaction Status Date / Time divalproex sodium Allergy Severe weakness, Verified 10/20/23 20:36 [From Depakote] ataxia, confusion lidocaine Allergy Severe edema face Verified 10/20/23 20:36 and lips aspirin Allergy Intermediate INTESTINAL Verified 10/20/23 20:36 BLEEDING AND HIVES magnesium citrate Allergy Intermediate HIVES AND Verified 10/20/23 20:36 SWELLING prednisone Allergy Intermediate HIVES; Verified 10/20/23 20:36 TREMORS simethicone Allergy Intermediate Hives/swell Verified 10/20/23 20:36 ing rosiglitazone AdvReac Severe Anemia/swelling/seizure/memory Verified 10/20/23 20:36 loss valproic acid AdvReac Severe weakness/at Verified 10/20/23 20:36 axia/confus ion citalopram AdvReac Intermediate tremors Verified 10/20/23 20:36 clonazepam AdvReac Intermediate Agitated Verified 10/20/23 20:36 metoclopramide AdvReac Intermediate Leg pains Verified 10/20/23 20:36 onion AdvReac Intermediate nausea/vomi Verified 10/20/23 20:36 ting simvastatin AdvReac Intermediate Leg pains Verified 10/20/23 20:36 sulfamethoxazole AdvReac Intermediate Nausea/vomi Verified 10/20/23 20:36 ting trimethoprim AdvReac Intermediate Nausea/vomi Verified 10/20/23 20:36 ting Home Meds Home Medications Medication Instructions Recorded Confirmed levothyroxine 25 mcg tablet See Rx Instructions .Route .COMPLEX 12/07/18 10/20/23 (Synthroid) loperamide 2 mg tablet 2 mg PO QID PRN Diarrhea 12/07/18 10/20/23 metformin 750 mg tablet,extended 1,500 mg PO QAM 12/07/18 10/20/23 release 24 hr mirtazapine 30 mg tablet (Remeron) 30 mg PO HS 12/07/18 10/20/23 thiamine HCl (vitamin B1) 100 mg 100 mg PO QAM 12/07/18 10/20/23 tablet (Vitamin B-1) iron,carbonyl 65 mg-vitamin C 125 1 tab PO QAM 08/30/19 10/20/23 mg tablet,delayed release (Vitron-C) albuterol sulfate 90 mcg/actuation 1 puff inhalation Q6 PRN Wheezing 08/31/19 10/20/23 aerosol inhaler gabapentin 100 mg capsule See Rx Instructions .Route .COMPLEX 09/02/21 10/20/23 insulin glargine 100 unit/mL (3 54 unit subcut HS 09/02/21 10/20/23 mL) subcutaneous pen (Lantus Solostar U-100 Insulin) acetaminophen 325 mg tablet 325 mg PO Q6 PRN Pain 01/12/23 10/20/23 (Tylenol) candesartan 16 mg tablet 16 mg PO QAM 01/12/23 10/20/23 cyanocobalamin (vitamin B-12) 1,000 mcg IM MONTHLY 01/12/23 10/20/23 1,000 mcg/mL injection solution ezetimibe 10 mg tablet (Zetia) 10 mg PO QAM 01/12/23 10/20/23 latanoprost (PF) 0.005 % eye drops 1 drp ophthalmic (eye) HS 01/12/23 10/20/23 lithium carbonate 300 mg tablet 300 mg PO HS 01/12/23 10/20/23 aripiprazole 5 mg tablet 5 mg PO QAM 03/31/23 10/20/23 duloxetine 60 mg capsule,delayed 60 mg PO QAM 03/31/23 10/20/23 release melatonin 5 mg tablet 5 mg PO HS 08/27/23 10/20/23 multivitamin 1 tab PO QAM 10/20/23 10/20/23 Previous Rx's Medication Instructions Recorded phenazopyridine 200 mg tablet 200 mg PO Q8H PRN pain #10 tabs 09/03/23 (Pyridium) nystatin 100,000 unit/gram topical 1 applic topical DAILY #30 grams 10/07/23 powder oxybutynin chloride 10 mg 10 mg PO DAILY #30 tabs 10/07/23 tablet,extended release 24 hr cephalexin 500 mg capsule 500 mg PO BID 5 days #10 caps 10/19/23 Results & Data (ED) Vital Signs Vital Signs - 24 hr 10/20/23 16:02 10/20/23 19:07 10/20/23 19:09 Temperature 36.5 C Temperature Source Temporal Artery Scan Pulse Rate 79 71 70 Respiratory Rate 17 15 Respiratory Effort / Characteristics Non-Labored Spontaneous Respiratory Depth Normal Blood Pressure 92/53 L Blood Pressure Mean 66 Blood Pressure Position Sitting Pulse Oximetry 96 Oxygen Delivery Method Room Air Sepsis Recent Fever Within 48 Hours No Sepsis New/Unexplained Change in Mental Status No Sepsis Action Taken by Nursing No Action Required 10/20/23 19:30 10/20/23 19:30 10/20/23 20:00 Temperature Temperature Source Pulse Rate 67 71 Respiratory Rate 15 14 Respiratory Effort / Characteristics Respiratory Depth Blood Pressure 121/59 L Blood Pressure Mean 68 Blood Pressure Position Pulse Oximetry Oxygen Delivery Method Sepsis Recent Fever Within 48 Hours Sepsis New/Unexplained Change in Mental Status Sepsis Action Taken by Nursing Laboratory Data Attestation: I reviewed the patient's lab results. 10/20/23 16:22 10/21/23 00:47 Lab Results 10/20/23 10/20/23 10/20/23 Range/Units 16:22 16:38 18:57 WBC 6.43 (4.8-10.8) K/ul RBC 3.43 L (4.20-5.40) M/uL Hgb 9.4 L (12.0-16.0) g/dl Hct 31.7 L (37.0-47.0) % MCV 92.4 (80.0-100.0) fL MCH 27.4 (25.0-34.0) pg MCHC 29.7 L (32.0-36.0) g/dL RDW Std Deviation 56.2 H (36.4-46.3) fL RDW Coeff of Lili 17.2 H (11.5-14.5) % Plt Count 235 (130-400) K/uL MPV 8.8 L (9.4-12.4) fL Immature Gran % (Auto) 0.9 % Neut % (Auto) 64.7 % Lymph % (Auto) 24.0 % [place] % (Auto) 6.5 % Eos % (Auto) 3.1 % Baso % (Auto) 0.8 % Neut # (Auto) 4.16 (1.40-6.50) K/uL Lymph # (Auto) 1.54 (1.20-3.40) K/uL [place] # (Auto) 0.42 (0.11-0.59) K/uL Eos # (Auto) 0.20 (0.00-0.50) K/uL Baso # (Auto) 0.05 (0.00-0.20) K/uL Immature Gran # (Auto) 0.06 (0.01-0.20) K/uL Sodium 131 L (136-145) mmol/L Potassium 4.5 (3.5-5.1) mmol/L Chloride 102 (98-107) mmol/L Carbon Dioxide 21 (21-32) mmol/L Anion Gap 8 (3-11) BUN 39 H (6-23) mg/dl Creatinine 0.59 L (0.6-1.2) mg/dl Est Cr Clr Drug Dosing Not Reportable Est GFR ( Amer) 102.5 ml/min Est GFR (Non-Af Amer) 88.4 ml/min BUN/Creatinine Ratio 66.1 H (10-20) Glucose 271 H (70-99(Fasting)) mg/dl POC Glucose 273 H (70-99) mg/dl Estimat Average Glucose 186 mg/dl Hemoglobin A1c 8.1 H (4.5-5.6) % Osmolality 298 (280-300) mOsm/kg Calcium 9.9 (8.6-10.3) mg/dl Magnesium 1.9 (1.7-2.4) mg/dl Total Bilirubin 0.3 (0.2-1.0) mg/dl AST 30 (13-39) U/L ALT 24 (7-52) U/L Alkaline Phosphatase 142 H (34-104) U/L Total Protein 7.2 (6.0-8.3) gm/dl Albumin 3.8 (3.4-5.0) gm/dl Globulin 3.4 (2.5-4.0) gm/dl Albumin/Globulin Ratio 1.1 (0.9-2) TSH 6.424 H (0.300-4.500) uIu/ml Free T4 1.27 (0.61-1.60) ng/dl Administered Medications Insulin Aspart (Insulin Aspart Per Unit Charge) 0 units SC ACHS VALERIE Stop: 11/20/23 00:02 Last Admin: 10/21/23 01:05 Dose: 7 units Documented By: MELANIA Co-signed By: REJI Latanoprost (Latanoprost 0.005% Op Soln 2.5 Ml Btl) 1 drops OP HS [facility] Stop: 11/19/23 20:59 Last Admin: 10/21/23 01:08 Dose: 1 drops Documented By: MELANIA Melatonin (Melatonin 3 Mg Tab) 4.5 mg PO [facility] Stop: 11/19/23 20:59 Last Admin: 10/21/23 01:07 Dose: 4.5 mg Documented By: MELANIA Discontinued Medications Sodium Chloride (Nss) 500 mls @ 500 mls/hr IV .Q1H ONE Stop: 10/20/23 21:16 Last Infusion: 10/20/23 23:43 Dose: Infused Documented By: Admin: 10/20/23 22:28 Dose: 500 mls/hr Documented By: BRUNILDA Insulin Glargine (Lantus Per Unit Charge) 50 units SQ [facility] Stop: 11/20/23 00:02 Last Admin: 10/21/23 01:06 Dose: 50 units Documented By: MELANIA Co-signed By: REJI Ioversol (Optiray 320 500ml) 100 ml IV ONCE ONE Stop: 10/21/23 01:55 Last Admin: 10/21/23 01:54 Dose: 87 ml Documented By: MOISÉS Discharge Plan Visit Data Chief Complaint: Illness Stated Complaint: Altered Mental Status ED Provider: Charles Espino Discharge Problem: Cognitive safety issue, Urinary tract infection, Hyperglycemia Patient Disposition: Admitted As Inpatient Discharge Instructions Interventions: ED Discharge Assessment Last Done: 10/21/23 00:03 Discharge Problem: Urinary tract infection Qualifiers: Urinary tract infection type: acute cystitis Hematuria presence: without hematuria Qualified Code(s): N30.00 - Acute cystitis without hematuria
[2023-10-20 16:59] LABS: Basophils # (auto) 0.05 K/uL (0.00-0.20); Basophils % (auto) 0.8 %; Eosinophils % (auto) 3.1 %; Hematocrit (blood only) 31.7 % (37.0-47.0); Hemoglobin 9.4 g/dl (12.0-16.0); Immature Granulocytes # (auto) 0.06 K/uL (0.01-0.20); Immature Granulocytes % (auto) 0.9 %; Lymphocytes # (auto) 1.54 K/uL (1.20-3.40); Mean Corpuscular Hemoglobin 27.4 pg (25.0-34.0); Mean Corpuscular Hgb Conc 29.7 g/dL (32.0-36.0); Mean Corpuscular Volume 92.4 fL (80.0-100.0); Mean Platelet Volume 8.8 fL (9.4-12.4); Monocytes # (auto) 0.42 K/uL (0.11-0.59); Monocytes % (auto) 6.5 %; Neutrophils # (auto) 4.16 K/uL (1.40-6.50); Neutrophils % (auto) 64.7 %; Platelet Count 235 K/uL (130-400); RDW Coefficient of Variation 17.2 % (11.5-14.5); RDW Standard Deviation 56.2 fL (36.4-46.3); Red Blood Count 3.43 M/uL (4.20-5.40); White Blood Count 6.43 K/ul (4.8-10.8)
[2023-10-20 17:11] LABS: Alanine Aminotransferase 24 U/L (7-52); Albumin Globulin Ratio 1.1 (0.9-2); Albumin Level 3.8 gm/dl (3.4-5.0); Alkaline Phosphatase 142 U/L (34-104); Anion Gap 8 (3-11); Aspartate Aminotransferase 30 U/L (13-39); BUN Creatinine Ratio 66.1 (10-20); Bilirubin,Total 0.3 mg/dl (0.2-1.0); Blood Urea Nitrogen 39 mg/dl (6-23); Calcium 9.9 mg/dl (8.6-10.3); Carbon Dioxide 21 mmol/L (21-32); Chloride 102 mmol/L (98-107); Est GFR (African American) 102.5 ml/min; Est GFR (Non-African American) 88.4 ml/min; Globulin 3.4 gm/dl (2.5-4.0); Glucose 271 mg/dl (70-99(Fasting)); Potassium 4.5 mmol/L (3.5-5.1); Sodium 131 mmol/L (136-145); Total Protein 7.2 gm/dl (6.0-8.3)
[2023-10-20] MEDS ORDERED: SODIUM CHLORIDE 0.9% 500 ML IV ONE (20:17)
--- NOTE | 2023-10-20 20:21 | History & Physical Report ---
Date of Service October 20, 2023 Assessment & Plan (1) Hypotension: Plan: Possible hypovolemia history DM 2 insulin requiring, patient currently hyperglycemic, well-controlled as of recent hemoglobin A1c of 5.9 last July 2023 history of seizure disorder, history of traumatic SAH hx cirrhosis, no overt decompensation hypothyroidism, TSH slightly elevated COPD, lung status at baseline hx recurrent GI bleed (gastric ulcer, AVMS, colonic angiectasia, hemorrhoids, diverticulosis, history radiation proctitis as per records), patient denies current active bleeding Recent UTI ongoing outpatient antibiotic course, LUTS on oxybutynin hx ADD/bipolar disorder/OCD as per records chronic anemia, hemoglobin at baseline hx cervical cancer status post chemoradiation functional disability, long-term placement desired by family given patient infirmity Past tobacco abuse OBS Medical telemetry given hypotension IVF bolus now Appropriate to hold home ARB Basal bolus insulin, ISS BG goal 1 10-1 40, carb count coverage PT OT eval Social service re: discharge planning, placement DVT prophylaxis. SCDs RE recurrent GI bleed Full code Patient's family requesting updates from providers. Ms. Bessie Ramsey (daughter), contact #[phone]. Text document was generated using [employer] voice recognition software. It may contain grammatical or spelling errors. Kindly contact undersigned for clarification of any documentation item in question. History of Present Illness Chief Complaint: I need help at home as per patient Primary Care Provider: Yulia Stein DO History obtained from patient, family, and records. Limited history from patient secondary to disorientation. Medical history significant for hypertension, DM2 insulin requiring, history of seizure disorder as per records, history of traumatic SAH, history of hypothyroidism, COPD, hx cervical cancer status post chemoradiation, cirrhosis, hx recurrent GI bleed (gastric ulcer, AVMS, colonic angiectasia, hemorrhoids, diverticulosis, history radiation proctitis as per records, LUTS on oxybutynin, ADD/bipolar disorder/OCD as per records, chronic anemia (baseline hemoglobin of 8-9), past tobacco abuse, Recent confinement March 2023 for metabolic encephalopathy secondary to sepsis secondary to pyelonephritis. Patient noted to be weak and and tired last week. Infection on recent outpatient UA for which Keflex was prescribed. Patient currently confined in the hospital and will likely be discharged on palliative care. Family worried that patient will be able to care for patient. Family decided on long-term placement for patient. Patient brought to the ER to facilitate process. Patient denies headache, chest pain, SOB, abdominal pain, diarrhea, black stools, bloody stools. SBP 90s upon arrival at the ER. MEDICAL HISTORY: As above. 2022 EGD showed mild portal hypertensive gastropathy. No varices. 2022 colonoscopy showed localized angioectasias ascending and transverse colon, rectum, sigmoid diverticulosis SURGICAL HISTORY: Appendectomy, shoulder surgery, catheter placement, dental surgery, BTL, femoral surgery, shoulder surgery, gynecologic procedures, urologic procedures FAMILY HISTORY: heart disease. PERSONAL AND SOCIAL HISTORY:Past tobacco abuse, occasional EtOH intake denies abuse. Lives with her , family business. Allergies Allergy/AdvReac Type Severity Reaction Status Date / Time divalproex sodium Allergy Severe weakness, Verified 10/20/23 20:36 [From Depakote] ataxia, confusion lidocaine Allergy Severe edema face Verified 10/20/23 20:36 and lips aspirin Allergy Intermediate INTESTINAL Verified 10/20/23 20:36 BLEEDING AND HIVES magnesium citrate Allergy Intermediate HIVES AND Verified 10/20/23 20:36 SWELLING prednisone Allergy Intermediate HIVES; Verified 10/20/23 20:36 TREMORS simethicone Allergy Intermediate Hives/swell Verified 10/20/23 20:36 ing rosiglitazone AdvReac Severe Anemia/swelling/seizure/memory Verified 10/20/23 20:36 loss valproic acid AdvReac Severe weakness/at Verified 10/20/23 20:36 axia/confus ion citalopram AdvReac Intermediate tremors Verified 10/20/23 20:36 clonazepam AdvReac Intermediate Agitated Verified 10/20/23 20:36 metoclopramide AdvReac Intermediate Leg pains Verified 10/20/23 20:36 onion AdvReac Intermediate nausea/vomi Verified 10/20/23 20:36 ting simvastatin AdvReac Intermediate Leg pains Verified 10/20/23 20:36 sulfamethoxazole AdvReac Intermediate Nausea/vomi Verified 10/20/23 20:36 ting trimethoprim AdvReac Intermediate Nausea/vomi Verified 10/20/23 20:36 ting Home Medications Medication Instructions Recorded Confirmed Type levothyroxine 25 mcg tablet See Rx Instructions .Route .COMPLEX 12/07/18 10/20/23 History (Synthroid) loperamide 2 mg tablet 2 mg PO QID PRN Diarrhea 12/07/18 10/20/23 History metformin 750 mg tablet,extended 1,500 mg PO QAM 12/07/18 10/20/23 History release 24 hr mirtazapine 30 mg tablet (Remeron) 30 mg PO HS 12/07/18 10/20/23 History thiamine HCl (vitamin B1) 100 mg 100 mg PO QAM 12/07/18 10/20/23 History tablet (Vitamin B-1) iron,carbonyl 65 mg-vitamin C 125 1 tab PO QAM 08/30/19 10/20/23 History mg tablet,delayed release (Vitron-C) albuterol sulfate 90 mcg/actuation 1 puff inhalation Q6 PRN Wheezing 08/31/19 10/20/23 History aerosol inhaler gabapentin 100 mg capsule See Rx Instructions .Route .COMPLEX 09/02/21 10/20/23 History insulin glargine 100 unit/mL (3 54 unit subcut HS 09/02/21 10/20/23 History mL) subcutaneous pen (Lantus Solostar U-100 Insulin) acetaminophen 325 mg tablet 325 mg PO Q6 PRN Pain 01/12/23 10/20/23 History (Tylenol) candesartan 16 mg tablet 16 mg PO QAM 01/12/23 10/20/23 History cyanocobalamin (vitamin B-12) 1,000 mcg IM MONTHLY 01/12/23 10/20/23 History 1,000 mcg/mL injection solution ezetimibe 10 mg tablet (Zetia) 10 mg PO QAM 01/12/23 10/20/23 History latanoprost (PF) 0.005 % eye drops 1 drp ophthalmic (eye) HS 01/12/23 10/20/23 History lithium carbonate 300 mg tablet 300 mg PO HS 01/12/23 10/20/23 History aripiprazole 5 mg tablet 5 mg PO QAM 03/31/23 10/20/23 History duloxetine 60 mg capsule,delayed 60 mg PO QAM 03/31/23 10/20/23 History release melatonin 5 mg tablet 5 mg PO HS 08/27/23 10/20/23 History phenazopyridine 200 mg tablet 200 mg PO Q8H PRN pain #10 tabs 09/03/23 10/20/23 Rx (Pyridium) nystatin 100,000 unit/gram topical 1 applic topical DAILY #30 grams 10/07/23 10/20/23 Rx powder cephalexin 500 mg capsule 500 mg PO BID 5 days #10 caps 10/19/23 10/20/23 Rx multivitamin 1 tab PO QAM 10/20/23 10/20/23 History oxybutynin chloride 10 mg PO HS 10/21/23 10/21/23 History Past Med/Surg History Medical History History of cervical cancer 2017- s/p chemo and XRT Port-A-Cath in place unsure of type Alcoholic cirrhosis quit drinking in 2017 Anxiety disorder PTSD (post-traumatic stress disorder) History of COVID-19 tested positive on a home test ~Beginning of September 2022. patient unsure of exact date. reports symptoms included: sore throat, cough and headache. resolved currently. Hypothyroidism History of GI bleed Poor historian Memory changes r/t fall "long time ago,I don't know when it was". Alert and oriented, poor historian. Hypertension Asthma RARE RES. INH USE Mood disorder [place] Per PCP records 04/2023- "Pt has remote history of seizure d/o with history of cavernosum. She has been on Keppra without issue. " Seizure disorder grand mal > last one > "years ago" Dyslipidemia Bipolar 1 disorder (04/07/14) Ana (04/07/14) HX OF Intracranial hemorrhage resolved> was from fall (2013) Anemia DM (diabetes mellitus) IDDM Surgical History History of bilateral tubal ligation History of repair of rotator cuff RCR History of esophagogastroduodenoscopy (EGD) History of appendectomy History of open reduction and internal fixation (ORIF) procedure Left Femur ORIF with kody. History of cataract surgery bilateral History of colonoscopy Hx of cervical spine surgery pt denies -- states she hurt her neck during a fall "about 5 years ago". ROM wnl. 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 Required: No Beliefs That Will Affect Care: None Current Living Situation: Spouse Feels Safe at Home: Yes Assistive Devices: Walker Review of Systems Review of Systems: Could not be reliably obtained secondary to disorientation Physical Exam Physical Exam: GENERAL: Disoriented, slightly hard of hearing, no respiratory distress SKIN: Pallor, warm HEENT: pale palpebral conjunctivae, no ptosis, dry buccal mucosa NECK : Supple, no tenderness CHEST : Decreased breath sounds, no chest wall tenderness HEART : RRR, no obvious murmurs ABDOMEN: Distended, nontender EXTREMITIES : No LE swelling/tenderness, no other conspicuous deformities noted NEUROLOGIC : Disoriented, no facial asymmetry, gait and stance not assessed Results & Data Results & Data Vital Signs (Past 12 Hours) Vital Signs Temp Pulse Resp BP Pulse Ox O2 Del Method 10/20/23 19:09 70 10/20/23 16:02 36.5 C 79 17 92/53 L 96 Room Air Diagnostic Findings Laboratory Results WBC 6.43 K/ul (4.8-10.8) 10/20/23 16: RBC 3.43 M/uL (4.20-5.40) L 10/20/23 16:22 Hgb 9.4 g/dl (12.0-16.0) L 10/20/23 16:22 Hct 31.7 % (37.0-47.0) L 10/20/23 16:22 MCV 92.4 fL (80.0-100.0) 10/20/23 16:22 MCH 27.4 pg (25.0-34.0) 10/20/23 16: MCHC 29.7 g/dL (32.0-36.0) L 10/20/23 16:22 RDW Std Deviation 56.2 fL (36.4-46.3) H 10/20/23 16:22 RDW Coeff of Lili 17.2 % (11.5-14.5) H 10/20/23 16:22 Plt Count 235 K/uL (130-400) 10/20/23 16:22 MPV 8.8 fL (9.4-12.4) L 10/20/23 16:22 Immature Gran % (Auto) 0.9 % 10/20/23 16:22 Neut % (Auto) 64.7 % 10/20/23 16:22 Lymph % (Auto) 24.0 % 10/20/23 16:22 [place] % (Auto) 6.5 % 10/20/23 16:22 Eos % (Auto) 3.1 % 10/20/23 16:22 Baso % (Auto) 0.8 % 10/20/23 16:22 Neut # (Auto) 4.16 K/uL (1.40-6.50) 10/20/23 16:22 Lymph # (Auto) 1.54 K/uL (1.20-3.40) 10/20/23 16:22 [place] # (Auto) 0.42 K/uL (0.11-0.59) 10/20/23 16:22 Eos # (Auto) 0.20 K/uL (0.00-0.50) 10/20/23 16:22 Baso # (Auto) 0.05 K/uL (0.00-0.20) 10/20/23 16:22 Immature Gran # (Auto) 0.06 K/uL (0.01-0.20) 10/20/23 16:22 Sodium 131 mmol/L (136-145) L 10/20/23 16:22 Potassium 4.5 mmol/L (3.5-5.1) 10/20/23 16:22 Chloride 102 mmol/L (98-107) 10/20/23 16:22 Carbon Dioxide 21 mmol/L (21-32) 10/20/23 16:22 Anion Gap 8 (3-11) 10/20/23 16:22 BUN 39 mg/dl (6-23) H 10/20/23 16:22 Creatinine 0.59 mg/dl (0.6-1.2) L 10/20/23 16:22 Est Cr Clr Drug Dosing Not Reportable 10/20/23 16:22 Est GFR ( Amer) 102.5 ml/min 10/20/23 16:22 Est GFR (Non-Af Amer) 88.4 ml/min 10/20/23 16:22 BUN/Creatinine Ratio 66.1 (10-20) H 10/20/23 16:22 Glucose 271 mg/dl (70-99(Fasting)) H 10/20/23 16:22 POC Glucose 273 mg/dl (70-99) H 10/20/23 18:57 Calcium 9.9 mg/dl (8.6-10.3) 10/20/23 16:22 Total Bilirubin 0.3 mg/dl (0.2-1.0) 10/20/23 16:22 AST 30 U/L (13-39) 10/20/23 16:22 ALT 24 U/L (7-52) 10/20/23 16:22 Alkaline Phosphatase 142 U/L (34-104) H 10/20/23 16:22 Total Protein 7.2 gm/dl (6.0-8.3) 10/20/23 16:22 Albumin 3.8 gm/dl (3.4-5.0) 10/20/23 16:22 Globulin 3.4 gm/dl (2.5-4.0) 10/20/23 16:22 Albumin/Globulin Ratio 1.1 (0.9-2) 10/20/23 16:22 Chest x-ray as per my interpretation cardiomegaly (1) Hypotension Hypotension type: unspecified hypotension type Qualified Code(s): I95.9 - Hypotension, unspecified
[2023-10-20 20:32] LABS: Estimated Average Glucose 186 mg/dl; Hemoglobin A1C 8.1 % (4.5-5.6)
[2023-10-20] MEDS ORDERED: PROMETHAZINE HCL 6.25 MG in SODIUM CHLORIDE 0.9% 50 ML IV PRN (20:32)
[2023-10-20] MEDS ORDERED: PHENAZOPYRIDINE HCL 200 MG TAB PO PRN (20:41)
[2023-10-20 20:58] LABS: Magnesium 1.9 mg/dl (1.7-2.4)
[2023-10-20 21:18] LABS: Thyroid Stimulating Hormone 6.424 uIu/ml (0.300-4.500)
[2023-10-20 22:06] LABS: T4 Free Thyroxine 1.27 ng/dl (0.61-1.60)
[2023-10-21] MEDS ORDERED: GLUCAGON FOR INJ 1 MG VIAL SQ PRN (00:03)
[2023-10-21] MEDS ORDERED: DEXTROSE 50% 50 ML SYRINGE IV PRN (00:03)
[2023-10-21] MEDS ORDERED: GLUCOSE 10 TAB/TUBE PO PRN (00:03)
[2023-10-21] MEDS ORDERED: LANTUS PER UNIT CHARGE SQ SCH ×3 (00:03→21:00)
[2023-10-21] MEDS ORDERED: CARBOHYDRATES FOR HYPOGLYCEMIA PO PRN (00:03)
[2023-10-21] MEDS ORDERED: GLUCOSE 40% GEL 15 GM TUBE PO PRN (00:03)
--- OUTSIDE RECORDS SUMMARY | 2023-10-21 00:10 | External Medical Summary | Summary of Care ---
Author Name Unknown Organization [facility] Address [address] [place] [address] Phone [phone] Care Team Providers Care Level Vial Inspector Name Role Phone Yulia Stein DO Primary Care Provider Reason for Visit * Reason Comments Infusion Venofer Medication Administration B12 Encounter Details Date Type Department Care Team (Latest Contact Info) Description 10/16/2023 8:30 AM EST Hem/Onc Treatment Hematology/Oncolog y Treatment, [place] [address] [place] [address] [address], [address] [place] [address] Iron deficiency anemia due to chronic blood loss*; B12 deficiency; Cervical adenocarcinoma (HCC); Encounter for venous access device care Allergies Active Allergy Reactions Criticality Noted Date Comments Rosiglitazone Maleate 06/04/2010 Weight gain, anemia, swelling,seizure, memory loss Sulfamethoxazole-Trimeth oprim Nausea/vomiting 01/01/2010 Citalopram 09/12/2002 tremor Citrate Of Magnesia 01/30/2009 ? HIVES AND SWELLING Depakote Er 10/08/2009 Weakness, ataxia, confusion Food (See Comments) 12/29/2005 Only RAW yellow onions - nausea/vomiting Clonazepam 04/18/2014 Makes her agitated Lidocaine Hcl Edema face/lips/tongue High 02/08/2014 Prednisone Hives 09/17/2000 Metoclopramide Hcl 01/30/2009 ? HIVES AND SWELLING Simethicone Hives High 01/14/2023 Simvastatin 01/29/2006 Leg pains documented as of this encounter (statuses as of 10/19/2023) Medications Medication Sig Dispensed Refills Start Date End Date Status Latanoprost 0.005 % Ophthalmic Solution (Xalatan) Instill 1 Drop into both eyes at bedtime. 0 11/03/2022 Active Empagliflozin 10 MG Oral Tablet (Jardiance)Indicati ons:Type 2 diabetes mellitus with hemoglobin A1c goal of less than 8.0% (HCC),Type 2 diabetes mellitus with other circulatory complications (HCC),B12 deficiency,Dyslipid emia, goal LDL below 100,Pernicious anemia,Essential (primary) hypertension Take 1 Tablet by mouth in the morning. 90 Tablet 3 04/23/2023 Active Candesartan Cilexetil 16 MG Oral Tablet (Atacand)Indication s:Type 2 diabetes mellitus with hemoglobin A1c goal of less than 8.0% (HCC),Type 2 diabetes mellitus with other circulatory complications (HCC),B12 deficiency,Dyslipid emia, goal LDL below 100,Pernicious anemia,Essential (primary) hypertension Take 1 Tablet by mouth in the morning. In the morning.. 100 Tablet 3 04/23/2023 Active metFORMIN HCl ER 750 MG Oral Tablet Extended Release 24 Hour (Glucophage XR)Indications:Type 2 diabetes mellitus with hemoglobin A1c goal of less than 8.0% (HCC),Type 2 diabetes mellitus with other circulatory complications (HCC),B12 deficiency,Dyslipid emia, goal LDL below 100,Pernicious anemia,Essential (primary) hypertension Take 2 Tablets by mouth in the morning. 180 Tablet 2 04/23/2023 Active DULoxetine HCl 60 MG Oral Capsule Delayed Release Particles (Cymbalta)Indicatio ns:Type 2 diabetes mellitus with hemoglobin A1c goal of less than 8.0% (HCC),Type 2 diabetes mellitus with other circulatory complications (HCC),B12 deficiency,Dyslipid emia, goal LDL below 100,Pernicious anemia,Essential (primary) hypertension Take 1 Capsule by mouth in the morning. 30 Capsule 3 04/23/2023 Active B-12 Compliance Injection 1000 MCG/ML Injection Kit (Cyanocobalamin)Ind ications:Type 2 diabetes mellitus with hemoglobin A1c goal of less than 8.0% (HCC),Type 2 diabetes mellitus with other circulatory complications (HCC),B12 deficiency,Dyslipid emia, goal LDL below 100,Pernicious anemia,Essential (primary) hypertension Inject 1,000 mcg into a large muscle every 30 days. 1 mL 3 04/23/2023 Active Albuterol Sulfate HFA 108 (90 Base) MCG/ACT Inhalation Aerosol SolutionIndications :Type 2 diabetes mellitus with hemoglobin A1c goal of less than 8.0% (HCC),Type 2 diabetes mellitus with other circulatory complications (HCC),B12 deficiency,Dyslipid emia, goal LDL below 100,Pernicious anemia,Essential (primary) hypertension Inhale 2 Puffs by mouth every 6 hours as needed for Wheezing. 18 g 3 04/23/2023 Active OneTouch Ultra In Vitro Strip (Glucose Blood)Indications:d iabetes USE TO TEST BLOOD SUGAR THREE TIMES DAILY.E11.9 300 Strip 3 04/23/2023 Active Acetaminophen 325 MG Oral Tablet (Tylenol)Indication s:pain Take 1 Tablet by mouth every 6 hours as needed for Pain, Moderate. 30 Tablet 3 04/23/2023 Active Additional Information Patient taking differently: 650 mgOral Q6H PRN, Pain, Moderate, Indications: pain, Reported on 05/15/2023 Gabapentin 100 MG Oral Capsule (Neurontin)Indicati ons:Type 2 diabetes mellitus with hemoglobin A1c goal of less than 8.0% (HCC),Type 2 diabetes mellitus with other circulatory complications (HCC),B12 deficiency,Dyslipid emia, goal LDL below 100,Pernicious anemia,Essential (primary) hypertension Take 1 Capsule by mouth in the morning and 1 Capsule at noon and 1 Capsule before bedtime. 90 Capsule 3 04/23/2023 Active Additional Information Patient taking differently:100 mg OralBID (0700,1900), Take 100mg in the morning and 200mg in the evening, Reported on 08/27/2023 Thiamine Mononitrate 100 MG Oral Tablet (RA Vitamin B-1)Indications:Typ e 2 diabetes mellitus with hemoglobin A1c goal of less than 8.0% (HCC),Type 2 diabetes mellitus with other circulatory complications (HCC),B12 deficiency,Dyslipid emia, goal LDL below 100,Pernicious anemia,Essential (primary) hypertension Take 1 Tablet by mouth in the morning. 90 Tablet 3 04/23/2023 Active Mirtazapine 30 MG Oral Tablet (Remeron)Indication s:Type 2 diabetes mellitus with hemoglobin A1c goal of less than 8.0% (HCC),Type 2 diabetes mellitus with other circulatory complications (HCC),B12 deficiency,Dyslipid emia, goal LDL below 100,Pernicious anemia,Essential (primary) hypertension Take 1 Tablet by mouth at bedtime. 30 Tablet 6 04/23/2023 Active Glucose Blood In Vitro StripIndications:di abetes Use up to 7 times a day as directed 550 Strip 04/23/2023 Active Loperamide HCl 2 MG Oral Capsule (Imodium)Indication s:Type 2 diabetes mellitus with hemoglobin A1c goal of less than 8.0% (HCC),Type 2 diabetes mellitus with other circulatory complications (HCC),B12 deficiency,Dyslipid emia, goal LDL below 100,Pernicious anemia,Essential (primary) hypertension Take 1 Capsule by mouth 4 times a day as needed for Diarrhea. Purchases OTC 30 Capsule 6 04/23/2023 Active Multi-Vitamins Oral TabletIndications:T ype 2 diabetes mellitus with hemoglobin A1c goal of less than 8.0% (HCC),Type 2 diabetes mellitus with other circulatory complications (HCC),B12 deficiency,Dyslipid emia, goal LDL below 100,Pernicious anemia,Essential (primary) hypertension Take 1 Tablet by mouth in the morning. 30 Tablet 6 04/23/2023 Active Insulin Glargine Solostar 100 UNIT/ML Subcutaneous Solution Pen-injectorIndicat ions:diabetes Inject 54 Units under the skin at bedtime. 60 mL 0 05/08/2023 Active ARIPiprazole 5 MG Oral Tablet (Abilify) Take 1 Tablet by mouth in the morning. (Prescribed by Dr. Linder). 0 03/31/2023 Active Melatonin 5 MG Oral Tablet Take 1 Tablet by mouth at bedtime. 0 05/04/2023 Active [place] Carbonate ER 300 MG Oral Tablet Extended Release (Lithobid ER) TAKE ONE TABLET BY MOUTH DAILY AT BEDTIME 90 Tablet 0 11/17/2022 3 Active Additional Information Patient taking differently: 450 mg HS, Reported on 09/04/2023 Nystatin 875336 UNIT/GM External Powder (Nystop)Indications :Skin irritation Apply topically to affected area as needed (skin irritation). Apply up to 2 times a day 60 g 3 06/15/2023 Active BD Pen Needle Short U/F 31G X 8 MM (Insulin Pen Needle)Indications: Pernicious anemia,Dyslipidemia , goal LDL below 100,Essential (primary) hypertension,B12 deficiency,Type 2 diabetes mellitus with other circulatory complications (HCC),Type 2 diabetes mellitus with hemoglobin A1c goal of less than 8.0% (HCC) USE DIRECTED ONCE DAILY WITH INSULIN 100 Each 1 08/04/2023 Active levETIRAcetam 1000 MG Oral TabletIndications:e pilepsy Take 1 Tablet by mouth in the morning and 1 Tablet before bedtime. 60 Tablet 3 08/18/2023 Active Ezetimibe 10 MG Oral Tablet (Zetia)Indications: dyslipidemia Take 1 Tablet by mouth in the morning. 30 Tablet 3 08/18/2023 Active oxyBUTYnin Chloride 5 MG Oral Tablet (Ditropan) Take 1 Tablet by mouth every 8 hours as needed for Bladder spasms. 0 Active Levothyroxine Sodium 25 MCG Oral Tablet (Levoxyl)Indication s:Acquired hypothyroidism TAKE 3 TABLETS IN THE MORNING THU-THU and TAKE 4 TABLETS IN THE MORNING ON THURSDAY 88 Tablet 2 09/16/2023 Active Vitron-C 65-125 MG Oral Tablet (Iron-Vitamin C 65-125 mg per tab)Indications:Low iron,Low phosphate levels TAKE 1 TABLET BY MOUTH ONCE DAILY IN THE MORNING 30 Tablet 3 06/23/2023 3 Discontinu ed(Refill) Hospital, Clinic, or Other Facility Administered Medication Ordered Dose Route Frequency Start Date End Date Status albuterol sulfate (PROVENTIL) (2.5 MG/3ML) 0.083% inhalation solution 2.5 mgIndications:Emphysema lung (HCC) 2.5 mg NEBULIZER Q4H PRN 08/31/2019 Active documented as of this encounter (statuses as of 10/19/2023) Active Problems Problem Noted Date Diagnosed Date Cirrhosis of liver without ascites 05/19/2023 Last Assessment & Plan: Reportedly stopped drinking ETOH, but cannot tell me when. Following closely with GI. Cervical adenocarcinoma 05/18/2023 Generalized idiopathic epile psy and epileptic syndromes, not intractable, without status epilepticus 04/30/2023 Last Assessment & Plan: Keppra 1000mg BID No recent seizures Portal hypertension 04/22/2023 Asthma with severity to be determined 04/22/2023 Last Assessment & Plan: "RED FLAG" ASTHMA symptoms: ? NO IDENTIFIED SYMPTOMS Medication Regimen ? Other: Albuterol HFA prn for mild asthma Self-Management plan ? Prednisone 40mg daily for 5 days Rx Exacerbation plan ? Chest Xray Additional Comments: ? Reports rare symptoms from asthma ? Reviewed when to call [facility] at home Hypothyroidism due to acquired atrophy of thyroi d 12/09/2022 Bipolar disorder, current episode depressed, mil d 04/08/2022 Last Assessment & Plan: Followed by psych monthly Reports she is stable [place] was recently stopped Duloxetine 60mg daily Mirtazapine 30mg q hs Aripiprazole 5mg daily Type 2 diabetes mellitus wit h other circulatory complications 09/27/2021 Bipolar disorder, in partial remission, most recent episode depressed 12/19/2020 Post-traumatic stress disorder, chronic 12/19/19 21 Hypertension associated with type 2 diabetes vero litus 08/15/2020 Last Assessment & Plan: "RED FLAG" Diabetic symptoms: ? Excessive Thirst, Confusion and Nausea / Vomiting Goal HgbA1c ? <7 Diabetic Complications ? NONE KNOWN Medication Regimen ? Metformin ? Basal/Long Acting Insulin ? SGLT (ex: Jardiance) DM Secondary Prevention ? WILLIAM Inhibitor / ARB Additional Comments ? Last HgbA1C 5.9% continue: Metformin 1500 mg daily, Jardiance 10 mg daily and lantus 54 units daily ? BP at goal, continue candesartan 16 mg daily Low phosphate levels 08/15/2020 Age-related osteoporosis wit hout current pathological fracture 08/15/2020 History of cervical cancer 07/18/2020 Last Assessment & Plan: Has history of gross hematuria and history of cervical cancer. Urology referral placed by PCP. She is scheduled for renal US. Will also need cysto. Encounter for venous access device care 07/06/20 20 Epilepsy, tonic-clonic 09/16/2019 Closed nondisplaced fracture of first cervical vertebra with routine healing 09/16/2019 Advance directive discussed with patient 019 Overview: No, Advance Directive brochure given to patient. Fatty liver 12/23/2018 Radiation proctitis 12/23/2018 Cavernous malformation 10/26/2018 History of subarachnoid hemorrhage 09/30/2018 B12 deficiency 09/08/2018 Last Assessment & Plan: Receiving monthly B12 injections. Encounter for antineoplastic chemotherapy 2017 Hypomagnesemia 01/04/2018 Iron deficiency anemia due to chronic blood loss 09/25/2017 Last Assessment & Plan: Receiving IV iron infusions. Last Hgb 12.3--->normalized Following closely with Hematology. Unspecified mood (affective) disorder 06/15/2017 Memory problem 03/29/2014 DYSLIPIDEMIA, GOAL LDL BELOW 100 11/08/2009 Overview: Per Lipid Taxonomy. Type 2 diabetes mellitus wit h hemoglobin A1c goal of less than 8.0% 09/13/2009 Overview: Modified per Diabetes protocol #14. ICD-10 update of inactive term Last Assessment & Plan: "RED FLAG" Diabetic symptoms: o Other: none identified Goal HgbA1c o <8 Diabetic Complications o NONE KNOWN Medication Regimen o Metformin o Basal/Long Acting Insulin o SGLT (ex: Jardiance) DM Secondary Prevention o Yearly Diabetic Eye Exam Additional Comments o Stable today Hypothyroidism 08/01/2009 Pernicious anemia 01/29/2006 Other iron deficiency anemia Overview: ICD-10 update of inactive term Attention deficit disorder without hyperactivity Obsessive-compulsive disorder documented as of this encounter (statuses as of 10/19/2023) Resolved Problems Problem Noted Date Diagnosed Date Resolved Date Major depressive disorder with single episode 12/19/19 21 12/09/2022 Gastroesophageal reflux dise ase without esophagitis 01/02/2020 04/18/2022 Primary open angle glaucoma (POAG) of both eyes 01/02/2020 04/22/2023 Pulmonary emphysema 05/11/2019 04/18/20 22 Atherosclerosis of aorta 05/11/201911/2022 Rectal bleeding 12/23/2018 05/11/2019 Smoker 09/30/2018 05/11/2019 Malignant neoplasm of cervix 11/18/2017 04/30/2023 Cancer Staging:Pathologic stage from 11/25/2017:FIGO Stage IIB(pT2b, pN0, cM0) - Signed by Sha Mitchell MD on 05/15/2022 Pancytopenia 11/18/2017 04/30/2023 Pseudoaneurysm of right femoral artery 11/18/2017 06/24/2018 Nonintractable epilepsy with out status epilepticus 06/15/2017 04/18/2022 Overdose 03/29/2014 12/28/2018 Pseudoaneurysm of right femoral artery 03/28/2014 06/15/2017 Altered level of consciousness 03/28/2014 04/24/2023 Lumbar vertebral fracture 03/27/2014 SAH (subarachnoid hemorrhage) 03/26/2014 09/30/2018 Multiple fractures of ribs of left side 03/26/2014 12/28/2018 Multiple fractures of ribs o f right side with routine healing 03/26/2014 12/28/2018 Pleural effusion on left 03/26/2014 Multiple contusions of trunk 03/26/2014 12/28/2018 Multiple leg contusions 03/26/201412/01 Constipation 03/17/2014 12/28/2018 Overview: ICD-10 update of inactive term Multiple rib fractures 03/14/201412/28 SAH (subarachnoid hemorrhage) 03/14/2014 12/28/2018 Hx of seizure disorder 03/14/201412/28 Hypothyroidism 03/14/2014 12/28/2018 Nausea 03/13/2014 05/11/2019 Overview: ICD-10 update of inactive term Rotator cuff syndrome 04/18/20102018 POST TRAUMATIC STRESS DISORDER 04/18/2010 05/11/2019 Benign neoplasm of colon 12/20/200801/2020 Overview: multiple polyps removed- villous adenomas--repeat 1 year ACTIVE CASE MANAGEMENT Kelsi Gordon RN [phone] 12/18/2008 09/16/2010 DIAB RENAL MANIF ADULT 06/21/200806/15 Overview: 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 Mixed dyslipidemia 9 Overview: Per Lipid Taxonomy. documented as of this encounter (statuses as of 10/19/2023) Immunizations Name Administration Dates Next Due COVID-19 mRNA, LNP-s, No Pre serve, 2-Dose Series (Moderna) 02/06/2021,01/09/2021 COVID-19, mRNA, LNP-s, PF, B ooster, 100mcg/0.5mg (Moderna) 10/12/2021 Covid-19, Mrna, Lnp-s, Pf, B ivalent, 30 Mcg, IM, 12 yrs and above (Pfizer) 05/15/2023 H1N1 2009 Influenza, IM 12/20/2009 HEP A - Hepatitis A (Adult > 18 yrs) 09/01/2018, 09/28/2017 Hepatitis B, 20+ yrs 09/01/2018,12/02/2017,09/28 Pneumococcal Conjugate Vacc, 13 Valent (Prevnar) 03/12/2016 Pneumococcal Polysaccharide PPV23 (Pneumovax) 11/18/2017,10/31/2005 SEASONAL INFLUENZA, PF, 6 M & Above, IM , (FLULAVAL or FLUZONE) 08/12/2019,09/01/2018,09/28/2017 Season Influenza, Cell Culte r, 18+ Yrs, With Preserv (Flucelvax) 10/12/2013 Season Influenza, Quad, PF, Adjuvanted, 65+ Yrs, IM (FLUAD) 08/15/2020 Seasonal Influenza, Quadriva lent Hd (Fluzone Hd) 10/15/2023,10/15/2022,09/27/2021 Seasonal Influenza, Quadriva lent, No Preserve, IM 08/25/2016 Seasonal Influenza, Split, I IV3, With Preserve, Inj 08/10/2015,09/01/2014,09/16/2012,08/01,10/08/2010,09/13/2009,10/11/20,09/14/2007,10/13/2006,10/31/2005 08/28/2012 TD, Preservative Free 11/18/2017 TDAP (age 11 and older)(Adacel) 07/21/2007 Varicella Zoster Vaccine (Adult) 06/04/2010 Zoster Vaccine Recombinant (Shingrix) 10/17/2021 ,07/04/2021 documented as of this encounter Social History Tobacco Use Types Packs/Day Years Used Date Smoking Tobacco: Former Cigarettes 0.2 20 Q uit: 05/11/2019 Passive Smoke Exposure: Past Smokeless Tobacco: Never Alcohol Use Standard Drinks/Week Comments No 0 (1 standard drink = 0.6 oz pur e alcohol) PHQ-2 Answer Date Recorded PHQ Adult Total Score 7 10/15/2023 Hunger Vital Sign Answer Date Recorded Within the past 12 months, y ou worried that your food would run out before you got the money to buy more. Never true 10/15/20 23 Within the past 12 months, t he food you bought just didn't last and you didn't have money to get more. Never true 10/15/2023 Sex and Gender Information Value Date Recorded Sex Assigned at Female 08/28/2023 10:19 AM EDT Gender Identity Female 08/28/2023 10:19 AM EDT Sexual Orientation Straight 08/28/2023 10 :19 AM EDT Job Start Date Occupation Industry Not on file Not on file Not on file documented as of this encounter Last Filed Vital Signs Vital Sign Reading Time Taken Comments Blood Pressure 150/75 10/16/2023 9:22 AM EST Pulse 93 10/16/2023 9:22 AM EST Temperature 37.5 C (99.5 F) 10/16/2023 9:22 AM ES T Respiratory Rate 18 10/16/2023 9:22 AM EST Oxygen Saturation 92% 10/16/2023 9:22 AM EST Inhaled Oxygen Concentration - - Weight - - Height - - Body Mass Index - - documented in this encounter Functional Status Functional Status Response Date of Assess ment Are you deaf or do you have serious difficulty h earing? No 02/23/2018 Are you blind or do you have serious difficulty seeing, even when wearing glasses? No 02/23/2018 Do you have serious difficul ty walking or climbing stairs? (5 years old or older) No 02/23/2018 Do you have difficulty dress ing or bathing? (5 years old or older) No 02/23/2018 Because of a physical, menta l, or emotional condition, do you have difficulty doing errands alone such as visiting a doctor s office or shopping? (15 years old or older) Yes 09/15/20 Cognitive Status Response Date of Assessm ent Because of a physical, menta l, or emotional condition, do you have serious difficulty concentrating, remembering, or making decisions? (5 years old or older) No 02/23/2018 documented as of this encounter Nursing Notes * Jessica sEpinoza LPN - 10/16/2023 9:23 AM EST 0855: Pt arrived for Venofer infusion and Vitamin b12 injection. Port accessed by Marilynn George RN. Pt tolerated well. Vitamin b12 administered in L deltoid. Pt is resting quietly at this time. 1032: Pt tolerated Venofer infusion well. PIV removed intact. Pt to return in one month. Dischargedin stable condition. documented in this encounter Plan of Treatment Upcoming Encounters Date Type Department Care Team (Late st Contact Info) Description 11/13/2023 9:30 AM EST Hem/Onc Treatment Hematology/Oncology Treatment, [place] [address] [place] [address] [place], [address] Hem On[address] [place] [address] 12/04/2023 9:20 AM EST Office Visit Family Practice [address], [place] [address] [place] [address] Yulia Stein, DO [address] [facility], [place] [address] 12/11/2023 9:30 AM EST Hem/Onc Treatment Hematology/Oncology Treatment, [place] [address] [place] [address] [place], [address] Hem Onc [address] [facility] [place] [address] 12/11/2023 2:00 PM EST Nurse Only Ancillary [address] [facility] [address] [facility], [place] [address] College, Nurse Annual Wellness Visit [address] [facility] [address] [facility] [address] 12/30/2023 10:45 AM EST Office Visit Hematology/Oncology [facility] [place] [address] [place] [address] Viraj Atkins MD [address] [place] [address] Scheduled Procedures Name Priority Associated Diagnoses Date/Ti me COLONOSCOPY FLEXIBLE PROXIMAL DIAGNOSTIC Recall History of colon polyps Health Maintenance Due Date Last Done Comments *BISPHONATE OR OTHER ACCEPTABLE MEDICATION NEEDED FOR OSTEOPOROSIS (REFER TO SMARTSET #1146) 08/18/2020 *SPIROMETRY ONCE FOR ASTHMA-ADULT 05/03/2023 COVID-19 Vaccine ( season) 2023 05/15/2023, 10/12/2021, 02/06/2021, Additional history exists Diabetic Eye Exam 10/31/2023 10/31/2022, , 03/27/2021, Additional history exists Diabetic Foot Exam 12/09/2023 12/09/2022, 0 08/15/2020, 08/12/2019, Additional history exists HbA1c 12/27/2023 06/26/2023, 01/01, 07/22/2022, Additional history exists TSH 02/24/2024 02/23/2023, 12/31, 03/12/2022, Additional history exists DXA Scan 05/27/2024 05/27/2022, 09/30, 08/16/2014, Additional history exists Albumin/Creatinine Ratio 06/26/2024 023, 08/10/2017, 01/01/2016, Additional history exists GFR 08/28/2024 08/28/2023, 05/30, 05/18/2023, Additional history exists Depression Screening 10/15/2024 10/15/2023 DTaP,Tdap,and Td Vaccines (3 - Td or Tdap) 11/18/2027 11/18/2017, 07/21/2007 VITAMIN D LEVEL ONCE IN A LIFETIME-USE SMARTSET# 76209 Completed 03/28/2014, 09/08/2013 Hepatitis B Completed 09/01/2018, 01/2018, 09/28/2017 Zoster Vaccines Completed 10/17/2021, 03/2021, 06/04/2010 Pneumococcal Vaccine: 65+ Years Completed 04/06/2023, 11/18/2017, 03/12/2016, Additional history exists Influenza Vaccine (FLU shot) Completed , 10/15/2022, 09/27/2021, Additional history exists GARDASIL-HPV IMMUNIZATION SERIES Aged Out No longer eligible based on patient's age to complete this topic MENINGOCOCCAL (MENACTRA/MENVEO) Aged Out No longer eligible based on patient's age to complete this topic documented as of this encounter Medical Devices Not on filedocumented as of this encounter Procedures Procedure Name Priority Date/Time Associated Diagnosis Comments DIFFERENTIAL, AUTOMATED STAT 10/16/2023 9:01 AM EST Iron deficiency anemia due to chronic blood loss FOLIC ACID STAT 10/16/2023 9:01 AM EST B12 deficiency Iron deficiency anemia due to chronic blood loss IRON SCREEN, INCLUDING TIBC STAT 10/16/2023 9:01 AM EST Iron deficiency anemia due to chronic blood loss CBC STAT 10/16/2023 9:01 AM EST Iron deficiency anemia due to chronic blood loss CBC STAT 10/16/2023 9:01 AM EST Iron deficiency anemia due to chronic blood loss FERRITIN STAT 10/16/2023 9:01 AM EST Iron deficiency anemia due to chronic blood loss VITAMIN B12 STAT 10/16/2023 9:01 AM EST B12 deficiency Iron deficiency anemia due to chronic blood loss documented in this encounter Results * (ABNORMAL) DIFFERENTIAL, AUTOMATED (10/16/2023 9:01 AM EST) WBC 4.38 4.00 - 10.80 K/uL 10/16/2023 9:09 AM EST [facility] 56-02 Neutrophils % 74.8 40.0 - 75.0 % 10/16/2023 9:09 AM EST [facility] 56-02 Lymphocytes % 14.6(L) 18.0 - 42.0 % 10/16/2023 9:09 AM EST [facility] 56-02 Monocytes % 5.5 1.0 - 11.0 % 10/16/2023 9:09 AM EST [facility] 56-02 Eosinophils % 4.6 0.0 - 6.0 % 10/16/2023 9:09 AM EST [facility] 56-02 Basophils % 0.5 0.0 - 2.0 % 10/16/2023 9:09 AM EST [facility] 56-02 Absolute Neutrophils 3.28 1.80 - 7.70 K/uL 10/16/2023 9:09 AM EST [facility] 56-02 Absolute Lymphocytes 0.64(L) 1.00 - 4.80 K/ul 10/16/2023 9:09 AM EST [facility] 56-02 Absolute Monocytes 0.24 0.00 - 1.10 K/uL 10/16/2023 9:09 AM EST [facility] 56-02 Absolute Eosinophils 0.20 0.00 - 0.70 K/uL 10/16/2023 9:09 AM [facility] 56-02 Absolute Basophils 0.02 0.00 - 0.20 K/uL 10/16/2023 9:09 AM [facility] 56-02 Blood Venous blood specimen / Unknown Central Line / Unknown 10/16/2023 9:01 AM EST 10/16/2023 9:05 AM EST Viraj Atkins MD LAB BLOOD ORDERABLES [facility] [address] [place] [address] * (ABNORMAL) CBC (10/16/2023 9:01 AM EST) Pathologist [facility] WBC 4.38 4.00 - 10.80 K/uL 10/16/2023 9:09 AM [facility] 56- RBC 3.97 3.85 - 5.15 M/uL 10/16/2023 9:09 AM [facility] 56 HGB 10.9(L) 12.0 - 15.3 g/dL 10/16/2023 9:09 AM [facility] 56 HCT 36.2 36.0 - 45.2 % 10/16/2023 9:09 AM [facility] 56- MCV 91.2 81.5 - 97.5 fL 10/16/2023 9:09 AM [facility] 56 MCH 27.5 27.0 - 34.0 pg 10/16/2023 9:09 AM [facility] 56 MCHC 30.1 32.0 - 36.0 g/dL 10/16/2023 9:09 AM [facility] 56 RDW 15.8 11.5 - 15.5 % 10/16/2023 9:09 AM [facility] 56- PLT 170 140 - 400 K/uL 10/16/2023 9:09 AM [facility] 56- MPV 8.6 6.6 - 11.1 fL 10/16/2023 9:09 AM [facility] 56- Blood Venous blood specimen / Unknown Central Line / Unknown 10/16/2023 9:01 AM EST 10/16/2023 9:05 AM EST Viraj Atkins MD LAB BLOOD ORDERABLES [facility] 56 [address] [place] [address] * VITAMIN B12 (10/16/2023 9:01 AM EST) [facility] Vitamin B12 848 232 - 1,245 pg/mL 10/16/2023 1:44 PM EST LAB[facility]ATORY [facility] Blood Venous blood specimen / Unknown Central Line / Unknown 10/16/2023 9:01 AM EST 10/16/2023 9:05 AM EST Viraj Atkins MD LAB BLOOD ORDERABLES Performing Organization Address [facility] Co de Phone Number LABORATORY [facility] [address] [place] [address] * FOLIC ACID (10/16/2023 9:01 AM EST) Folic Acid >20.0 >4.5 ng/mL 10/16/2023 1:44 PM EST [facility] Blood Venous blood specimen / Unknown Central Line / Unknown 10/16/2023 9:01 AM EST 10/16/2023 9:05 AM EST Viraj Atkins MD LAB BLOOD ORDERABLES Performing Organization Address [facility] de Phone Number LABORATORY [facility] [address] [place] [address] * (ABNORMAL) IRON SCREEN, INCLUDING TIBC (10/16/2023 9:01 AM EST) Iron 42 33 - 151 ug/dL 10/16/2023 12:38 PM EST [facility] Iron Binding Capacity 335 250 - 425 ug/dL 10/16/2023 12:38 PM EST [facility] Transferrin Saturation Percent 13(L) 15 - 55 % 10/16/2023 12:38 PM EST LABORATORY C Blood Venous blood specimen / Unknown Central Line / Unknown 10/16/2023 9:01 AM EST 10/16/2023 9:05 AM EST Viraj Atkins MD LAB BLOOD ORDERABLES Performing Organization Address [facility] Co de Phone Number LABORATORY [facility] [address] [place] [address] * FERRITIN (10/16/2023 9:01 AM EST) Ferritin 86 13 - 150 ng/mL 10/16/2023 1:44 PM EST LABORATORY [facility] Comment:Postmenopausal women have higher ferritin levels than pre-menopausal women. The above reference interval is based on pre-menopausal women. 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 (chronic) B12 deficiency Other B-complex deficiencies Cervical adenocarcinoma (HCC) Malignant neoplasm of cervix uteri, unspecified site Encounter for venous access device care Fitting and adjustment of vascular catheter documented in this encounter Administered Medications Inactive Administered Medications - up to 3 most recent administrations Medication Order MAR Action Action Date Dose Rate Site hEParin 100 UNIT/ML Lock Flush inj 500 Units 500 Units (5 mL), IV Lock, PRN Other, IV Flush, Starting on Thu10/16/23 at 0900, Until Thu10/16/23 at 1323, For 24 hours, Do not flush if lock, PICC, or central line not in place; IV infusing or unable to flush. Given 10/16/2023 10:31 AM EST 500 Units Iron Sucrose (Venofer) 300 mg in NSS 250 mL ivpb 300 mg, IV Piggyback, ONCE, 1 dose, On Thu10/16/23 at 1030, Administer over 90 Minutes Start Infusion 10/16/2023 8:59 AM EST 300 mg 166.67 mL/hr NSS infusion 500 mL, Intravenous, at 50 mL/hr, CONTINUOUS, Starting on Thu10/16/23 at 1000, Until Thu10/16/23 at 1323 Start Infusion 10/16/2023 8:59 AM EST 500 mL 50 mL/hr sodium chloride 0.9 % flush/inj 10 mL 10 mL, IV Push, PRN Other, IV Flush, Starting on Thu10/16/23 at 0900, Until Thu10/16/23 at 1323, For 24 hours, Do not flush if lock, PICC, or central line not in place; IV infusing or unable to flush. Given 10/16/2023 10:32 AM EST 10 mL vitamin b-12 (Cyanocobalamin) inj 1,000 mcg 1,000 mcg, Intramuscular, ONCE, On Thu10/16/23 at 0945, For 1 dose Given 10/16/2023 9:04 AM EST 1,000 mcg Deltoid Left Upper documented in this encounter Advance Directives Latest Code Status on File Code Status Date Activated Date Inactivated Comments Full Code 02/23/2018 4:06 PM 02/25/2018 1:06 PM This order reflects the patients wishes and were consensually agreed upon. Code Status History Code Status Date Activated Date Inactivated Comments Full Code 02/09/2018 2:01 PM 02/09/2018 8:08 PM This order reflects the patients wishes and were consensually agreed upon. Full Code 03/26/2014 10:23 PM 04/03/2014 10:31 PM This order reflects the patients wishes and were consensually agreed upon. Question Answer Comments Discussion of Advance Directives occurred with: Not Discussed Full Code 03/13/2014 7:13 PM 03/23/2014 5:34 PM This order reflects the patients wishes and were consensually agreed upon. Question Answer Comments Discussion of Advance Directives occurred with: Not Discussed Full Code 03/13/2014 5:20 PM 03/13/2014 7:13 PM This order reflects the patients wishes and were consensually agreed upon. Question Answer Comments Discussion of Advance Directives occurred with: Patient Does the patient have a Living Will? No Does the patient have Health Care Power of Stretcher Drier Operator? No Healthcare Agents on File Name Relationship Healthcare Agent Relationshi p Communication Antonio Janett Spouse Health Care Agen t (per Health Care Power of Stretcher Drier Operator document) Care Teams Level Vial Inspector Relationship Specialty Start Date End Date Yulia Stein DO [address] [place] [address] PCP - General Family Medicine 05/15/23 documented as of this encounter
--- OUTSIDE RECORDS SUMMARY | 2023-10-21 00:10 | External Medical Summary | Summary of Care ---
Author Name Unknown Organization [facility] Address [address] [place] [address] Phone [phone] Care Team Providers Care Manager Grocery Name Role Phone Yulia Stein DO Primary Care Provider [phone] Reason for Visit * Reason Comments Acid Mixer Documentation Encounter Details Date Type Department Care Team (Late st Contact Info) Description 10/19/2023 12:30 PM EST Acid Mixer [facility], [facility] [address] [place] [facility] [facility] [place] [address] Val Navarro, [facility] [address] [place] [address] Allergies Active Allergy Reactions Criticality Noted Date [...] 11/03/2022 Active Empagliflozin 10 MG Oral Tablet (Jardiance)Indicatio ns:Type 2 diabetes mellitus with hemoglobin A1c goal of less than 8.0% (HCC),Type 2 diabetes mellitus with other circulatory complications (HCC),B12 deficiency,Dyslipide nigel, goal LDL below 100,Pernicious anemia,Essential (primary) hypertension Take 1 Tablet by mouth in the morning. 90 Tablet 3 04/23/2023 Active Candesartan Cilexetil 16 MG Oral Tablet (Atacand)Indications :Type 2 diabetes mellitus with hemoglobin A1c goal of less than 8.0% (HCC),Type 2 diabetes mellitus with other circulatory complications (HCC),B12 deficiency,Dyslipide nigel, goal LDL below 100,Pernicious anemia,Essential (primary) hypertension Take 1 Tablet by mouth in the morning. In the morning.. 100 Tablet 3 04/23/2023 Active metFORMIN HCl ER 750 MG Oral Tablet Extended Release 24 Hour (Glucophage XR)Indications:Type 2 diabetes mellitus with hemoglobin A1c goal of less than 8.0% (HCC),Type 2 diabetes mellitus with other circulatory complications (HCC),B12 deficiency,Dyslipide nigel, goal LDL below 100,Pernicious anemia,Essential (primary) hypertension Take 2 Tablets by mouth in the morning. 180 Tablet 2 04/23/2023 Active DULoxetine HCl 60 MG Oral Capsule Delayed Release Particles (Cymbalta)Indication s:Type 2 diabetes mellitus with hemoglobin A1c goal of less than 8.0% (HCC),Type 2 diabetes mellitus with other circulatory complications (HCC),B12 deficiency,Dyslipide nigel, goal LDL below 100,Pernicious anemia,Essential (primary) hypertension Take 1 Capsule by mouth in the morning. 30 Capsule 3 04/23/2023 Active B-12 Compliance Injection 1000 MCG/ML Injection Kit (Cyanocobalamin)Melba cations:Type 2 diabetes mellitus with hemoglobin A1c goal of less than 8.0% (HCC),Type 2 diabetes mellitus with other circulatory complications (HCC),B12 deficiency,Dyslipide nigel, goal LDL below 100,Pernicious anemia,Essential (primary) hypertension Inject 1,000 mcg into a large muscle every 30 days. 1 mL 3 04/23/2023 Active Albuterol Sulfate HFA 108 (90 Base) MCG/ACT Inhalation Aerosol SolutionIndications: Type 2 diabetes mellitus with hemoglobin A1c goal of less than 8.0% (HCC),Type 2 diabetes mellitus with other circulatory complications (HCC),B12 deficiency,Dyslipide nigel, goal LDL below 100,Pernicious anemia,Essential (primary) hypertension Inhale 2 Puffs by mouth every 6 hours as needed for Wheezing. 18 g 3 04/23/2023 Active OneTouch Ultra In Vitro Strip (Glucose Blood)Indications:di abetes USE TO TEST BLOOD SUGAR THREE TIMES DAILY.E11.9 300 Strip 3 04/23/2023 Active Acetaminophen 325 MG Oral Tablet (Tylenol)Indications :pain Take 1 Tablet by mouth every 6 hours as needed for Pain, Moderate. 30 Tablet 3 04/23/2023 Active Additional Information Patient taking differently: 650 mgOral Q6H PRN, Pain, Moderate, Indications: pain, Reported on 05/15/2023 Gabapentin 100 MG Oral Capsule (Neurontin)Indicatio ns:Type 2 diabetes mellitus with hemoglobin A1c goal of less than 8.0% (HCC),Type 2 diabetes mellitus with other circulatory complications (HCC),B12 deficiency,Dyslipide nigel, goal LDL below 100,Pernicious anemia,Essential (primary) hypertension Take 1 Capsule by mouth in the morning and 1 Capsule at noon and 1 Capsule before bedtime. 90 Capsule 3 04/23/2023 Active Additional Information Patient taking differently:100 mg OralBID (0700,1900), Take 100mg in the morning and 200mg in the evening, Reported on 08/27/2023 Thiamine Mononitrate 100 MG Oral Tablet (RA Vitamin B-1)Indications:Type 2 diabetes mellitus with hemoglobin A1c goal of less than 8.0% (HCC),Type 2 diabetes mellitus with other circulatory complications (HCC),B12 deficiency,Dyslipide nigel, goal LDL below 100,Pernicious anemia,Essential (primary) hypertension Take 1 Tablet by mouth in the morning. 90 Tablet 3 04/23/2023 Active Mirtazapine 30 MG Oral Tablet (Remeron)Indications :Type 2 diabetes mellitus with hemoglobin A1c goal of less than 8.0% (HCC),Type 2 diabetes mellitus with other circulatory complications (HCC),B12 deficiency,Dyslipide nigel, goal LDL below 100,Pernicious anemia,Essential (primary) hypertension Take 1 Tablet by mouth at bedtime. 30 Tablet 6 04/23/2023 Active Glucose Blood In Vitro StripIndications:sami betes Use up to 7 times a day as directed 550 Strip 04/23/2023 Active Loperamide HCl 2 MG Oral Capsule (Imodium)Indications :Type 2 diabetes mellitus with hemoglobin A1c goal of less than 8.0% (HCC),Type 2 diabetes mellitus with other circulatory complications (HCC),B12 deficiency,Dyslipide nigel, goal LDL below 100,Pernicious anemia,Essential (primary) hypertension Take 1 Capsule by mouth 4 times a day as needed for Diarrhea. Purchases OTC 30 Capsule 04/23/2023 Active Multi-Vitamins Oral TabletIndications:Ty pe 2 diabetes mellitus with hemoglobin A1c goal of less than 8.0% (HCC),Type 2 diabetes mellitus with other circulatory complications (HCC),B12 deficiency,Dyslipide nigel, goal LDL below 100,Pernicious anemia,Essential (primary) hypertension Take 1 Tablet by mouth in the morning. 30 Tablet 04/23/2023 Active Insulin Glargine Solostar 100 UNIT/ML Subcutaneous Solution Pen-injectorIndicati ons:diabetes Inject 54 Units under the skin at bedtime. 60 mL 0 05/08/2023 Active ARIPiprazole 5 MG Oral Tablet (Abilify) Take 1 Tablet by mouth in the morning. (Prescribed by Dr. Linder). 0 03/31/2023 Active Melatonin 5 MG Oral Tablet Take 1 Tablet by mouth at bedtime. 0 05/04/2023 Active [place] Carbonate ER 300 MG Oral Tablet Extended Release (Lithobid ER) TAKE ONE TABLET BY MOUTH DAILY AT BEDTIME 90 Tablet 0 11/17/2022 3 Active Additional Information Patient taking differently: 450 mg HS, Reported on 09/04/2023 Nystatin 535648 UNIT/GM External Powder (Nystop)Indications: Skin irritation Apply topically to affected area as needed (skin irritation). Apply up to 2 times a day 60 g 3 06/15/2023 Active BD Pen Needle Short U/F 31G X 8 MM (Insulin Pen Needle)Indications:P ernicious anemia,Dyslipidemia, goal LDL below 100,Essential (primary) hypertension,B12 deficiency,Type 2 diabetes mellitus with other circulatory complications (HCC),Type 2 diabetes mellitus with hemoglobin A1c goal of less than 8.0% (HCC) USE DIRECTED ONCE DAILY WITH INSULIN 100 Each 1 08/04/2023 Active levETIRAcetam 1000 MG Oral TabletIndications:ep ilepsy Take 1 Tablet by mouth in the morning and 1 Tablet before bedtime. 60 Tablet 3 08/18/2023 Active Ezetimibe 10 MG Oral Tablet (Zetia)Indications:d yslipidemia Take 1 Tablet by mouth in the morning. 30 Tablet 3 08/18/2023 Active oxyBUTYnin Chloride 5 MG Oral Tablet (Ditropan) Take 1 Tablet by mouth every 8 hours as needed for Bladder spasms. 0 Active Levothyroxine Sodium 25 MCG Oral Tablet (Levoxyl)Indications :Acquired hypothyroidism TAKE 3 TABLETS IN THE MORNING and TAKE 4 TABLETS IN THE MORNING ON THURSDAY 88 Tablet 2 09/16/2023 Active Vitron-C 65-125 MG Oral Tablet (Iron-Vitamin C 65-125 mg per tab)Indications:Low iron,Low phosphate levels TAKE 1 TABLET BY MOUTH ONCE DAILY IN THE MORNING 30 Tablet 3 10/16/2023 Active Hospital, Clinic, or Other Facility Administered Medication [...] from asthma ? 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 Closed nondisplaced fracture of [...] year ACTIVE CASE MANAGEMENT Kelsi Gordon RN [phone] 12/18/2008 09/16/2010 DIAB RENAL MANIF ADULT 06/21/200806/15 [...] 12 yrs and above (Pfizer) 05/15/2023 H1N1 2008 Influenza, IM 12/20/2009 HEP A - Hepatitis A (Adult > 18 yrs) 09/01/2018, 09/28/2017 Hepatitis B, 20+ yrs 09/01/2018,12/02/2017,09/28 Pneumococcal Conjugate Vacc, 13 Valent (Prevnar) 03/12/2016 Pneumococcal Polysaccharide PPV23 (Pneumovax) 11/18/2017 SEASONAL INFLUENZA, PF, 6 M & Above, IM , (FLULAVAL or FLUZONE) 08/12/2019,09/01/2018,09/28/2017 Season Influenza, Cell Culte r, 18+ Yrs, With Preserv (Flucelvax) 10/12/2013 Season Influenza, Quad, PF, Adjuvanted, 65+ Yrs, IM (FLUAD) 08/15/2020 Seasonal Influenza, Quadriva lent Hd (Fluzone Hd) 10/15/2023,10/15/2022,09/27/2021 Seasonal Influenza, Quadriva lent, No Preserve, IM 08/25/2016 Seasonal Influenza, Split, I IV3, With Preserve, Inj 08/10/2015,09/01/2014,09/16/2012,08/01,10/08/2010,09/13/2009,10/11/20 08,09/14/2007,10/13/2006 08/28/2012 TD, Preservative Free 11/18/2017 TDAP (age [...] on file documented as of this encounter Functional Status Functional Status Response [...] (15 years old or older) Yes 09/15/20 17 Cognitive Status Response Date of Assessm ent Because of a physical, menta l, or emotional condition, do you have serious difficulty concentrating, remembering, or making decisions? (5 years old or older) No 02/23/2018 documented as of this encounter Progress Notes * Val Navarro LCSW - 10/19/2023 12:31 PM EST Worker was contacted by Bessie (Step Daughter) [phone]. She informed worker that her step father has been admitted to [facility] as of 10/14/23. Bessie has been caring for her mother ( Rona) through out the weekend because she needs 24/7 care. 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 She has contacted the PCP and discussed the situation. As shared, it appears that Antonio when stable (ICU now) will need to be dc'ed to an SNF with palliative care. The concern is that Rona needs placement immediately. Her goal is to have both of them in the same facility. Worker suggested she contact [facility] and speak to the Medical Assistant Internal Medicine / Care Mrg department to discuss where records can be sent. She was receptive. Rona has a history at [facility]. Family will consider placement there and see where Antonio is placed. Also as shared, Rona has been approved for WAIVER (IEB) but that has yet to be determined the hours and staffing issues to fill the hours. Because of the need for placement to be immediate Bessie is opting for Rona to be sent to the ED because she will have no caregiver. Bessie offered no other complaints or concerns at this time. Emotional Support was offered. Bessie was encouraged to contact the [facility] Team with any questions or concerns . Phone number for [facility] was provided . Worker provided contact number [phone] for any follow up needed. Val Navarro LCSW [facility] Metal Milling Machine Operator [facility] [phone] documented in this encounter Plan of Treatment Upcoming Encounters Date Type Department Care Team (Late st Contact Info) Description 11/13/2023 9:30 AM EST Hem/Onc Treatment Hematology/Oncology Treatment, [place] [address] [place] [address] [place], Chair 10 Hem [facility] [address] [facility] [address] 12/04/2023 9:20 AM EST Office Visit Family Practice [address] [facility] [address] [place] [address] Yulia Stein DO [address] [facility], [place] [address] 12/11/2023 9:30 AM EST Hem/Onc Treatment Hematology/Oncology [facility] [address] [facility] [place], [place] [address] Park, Chair 10 Hem Onc [facility] [address] [facility], [place] [address] 12/11/2023 2:00 PM EST Nurse Only Ancillary [address] [facility] [address] [place] [address] College, Nurse Annual Wellness Visit [address] [place] [address] 12/30/2023 10:45 AM EST Office Visit Hematology/Oncology [facility] [address] [facility] [place], [place] [address] Viraj Atkins MD [address] [facility] [place], [place] [address] Scheduled Procedures Name Priority Associated Diagnoses Date/Ti me COLONOSCOPY FLEXIBLE PROXIMAL DIAGNOSTIC Recall History of colon polyps Health Maintenance Due Date Last Done Comments *BISPHONATE OR OTHER ACCEPTABLE MEDICATION NEEDED FOR OSTEOPOROSIS (REFER TO SMARTSET #1146) 08/18/2020 *SPIROMETRY ONCE FOR ASTHMA-ADULT 05/03/2023 COVID-19 Vaccine (2022- season) 2023 05/15/2023, 10/12/2021, 02/06/2021, Additional history [...] D LEVEL ONCE IN A LIFETIME-USE SMARTSET# 68871 Completed 03/28/2014, 09/08/2013 Hepatitis B Completed 09/01/2018, [...] Not on filedocumented as of this encounter Advance Directives Latest Code Status [...] the patient have Health Care Power of Client Solutions Specialist? No Healthcare Agents on File Name Relationship Healthcare Agent Relationshi p Communication Antonio Janett Spouse Health Care Agen t (per Health Care Power of Client Solutions Specialist document) Care Teams Manager Grocery Relationship Specialty Start Date End Date Yulia Stein DO [address] [place] [id number] PCP - General Family Medicine 05/15/23 documented as of this encounter
--- OUTSIDE RECORDS SUMMARY | 2023-10-21 00:10 | External Medical Summary | Summary of Care ---
Author Name Unknown Organization [facility] Address [address] [place] [address] Phone [phone] Care Team Providers [employer] Operator Name Role Phone Yulia Stein DO Primary Care Provider + [phone] Reason for Visit * Reason Onset Date Comments Follow Up Medication Administration 10/15/2023 Flu an d/or Pneumo Inj Encounter Details Date Type Department Care Team (Late st Contact Info) Description 10/15/2023 3:40 PM EST Office Visit Family Practice [address] [place] [address] [address] [place] [address] Yulia Stein DO [address] [place] [address] Unable to care for self*; Urinary incontinence, unspecified type; Unspecified mood (affective) disorder (HCC); Epilepsy, tonic-clonic (HCC); Bipolar disorder, in partial remission, most recent episode depressed (HCC); DM type 2 nursing care encounter (HCC); Need for prophylactic vaccination and inoculation against influenza Allergies Active Allergy Reactions Criticality Noted Date [...] OTC 30 Capsule 04/23/2023 Active Multi-Vitamins Oral TabletIndications:T ype 2 [...] by mouth at bedtime. 0 05/04/2023 Active Deltana Carbonate ER 300 MG Oral Tablet Extended Release (Lithobid ER) TAKE ONE TABLET BY MOUTH DAILY AT BEDTIME 90 Tablet 0 11/17/2022 3 Active Additional Information Patient taking differently: 450 mg HS, Reported on 09/04/2023 Nystatin 485570 UNIT/GM External Powder (Nystop)Indications :Skin irritation Apply [...] 30 Tablet 3 06/23/2023 3 Discontinu ed(Refill) Tamsulosin HCl 0.4 MG Oral Capsule (Flomax) Take 1 Capsule by mouth in the morning. 0 3 Discontinu ed(Medicat ion List Clean Up) Phenazopyridine HCl 200 MG Oral Tablet (Pyridium) Take 1 Tablet by mouth 3 times a day as needed. 0 3 Discontinu ed(Medicat ion List Clean Up) Hospital, Clinic, or Other Facility Administered Medication [...] from asthma ? [facility] Hypothyroidism due to acquired atrophy of thyroi d 12/09/2022 Bipolar disorder, current episode depressed, mil d 04/08/2022 Last Assessment & Plan: Followed by psych monthly Reports she is stable Deltana was recently stopped Duloxetine 60mg daily Mirtazapine [...] adenomas--repeat 1 year ACTIVE CASE MANAGEMENT Kelsi Evan RN [phone] 12/18/2008 09/16/2010 DIAB RENAL MANIF ADULT 06/21/200806/15 [...] 30 Mcg, IM, 12 yrs and above ([employer]) 05/15/2023 H1N1 2009 Influenza, IM 12/20/2009 HEP [...] Passive Smoke Exposure: Past Smokeless Tobacco: Never Tobacco Cessation:Counseling Given: Yes Alcohol Use Standard Drinks/Week Comments No 0 [...] Sign Reading Time Taken Comments Blood Pressure 110/60 10/15/2023 4:07 PM EST Pulse 94 10/15/2023 4:07 PM EST Temperature 36.4 C (97.5 F) 10/15/2023 4:07 PM ES T Respiratory Rate 14 10/15/2023 4:07 PM EST Oxygen Saturation 97% 10/15/2023 4:07 PM EST Inhaled Oxygen Concentration - - Weight 66 kg (145 lb 8 oz) 10/15/2023 4:07 PM ES T Height 157.5 cm (5' 2") 10/15/2023 4:07 PM EST Body Mass Index 26.61 10/15/2023 4:07 PM EST documented in this encounter Functional Status Functional [...] No 02/23/2018 documented as of this encounter Patient Instructions * Patient Instructions* Naomi Lino LPN - 10/15/2023 4:06 PM EST ~~PATIENT INSTRUCTIONS FOR FLU SHOT~~ Possible side effects of influenza vaccine, (flu shot), are usually mild and include: 1. Soreness or redness at injection site 2. Low grade fever 3. Body aches You may use Tylenol/Acetaminophen as needed for these symptoms. LET YOUR DOCTOR KNOW IMMEDIATELY IF YOU HAVE DIFFICULTY BREATHING OR SWALLOWING, EXPERIENCE ITCHINGOF FEET OR HANDS, HAVE SWELLING OF EYES, FACE OR INSIDE OF NOSE. Dear Karla Rowland, The care of your Diabetes is very important to us. A yearly diabetic eye exam is important to protect your vision. If youre getting an eye exam done outside of [facility] please tell your Eye Doctor to fax or mail us the results of your Diabetic Eye Exam at your next visit. Our Address and Fax Number are listed below to help. Thank you for helping us to improve your Diabetes Care Our Office Address and Fax Number: Yulia Stein, DO [facility] [address], [address] [address] Diabetic Retinopathy: Evaluating Your Eyes Diabetic retinopathy is a condition that happens when diabetes damages blood vessels in the rear ofthe eye. It can lead to vision loss. To help catch it early, have a complete dilated eye exam at least once a year. During the exam, the eye healthcare provider will review your medical history, examine your eyes, and check your vision. Women who are and have pre-existing type 1 or type 2 diabetes have an increased risk of retinopathy. Women with diabetes should have an eye exam before or in the first trimester. They should continue to be monitored every trimester and for 1 year after delivery, depending on the severity of the retinopathy. The retina is the light-sensitive part of the eye that allows you to see. High blood sugar can damage blood vessels of the retina and cause them to leak or bleed. This damage can lead to abnormal blood vessel growth. This condition is called diabetic retinopathy. You may not have symptoms early in the disease. Later, there may be floaters, blurred vision, or poor night vision. There may also be partial or complete vision loss. Early cases of diabetic retinopathy can be treated by carefully controlling blood sugar, blood pressure, and cholesterol. Surgery or laser treatments may help restore lost vision. Laser surgery can shrink abnormal blood vessels or close ones that are leaking. Medicines injected in the eye can help decrease swelling of the retina. Home care Take all medicines, including insulin or oral diabetic medicine, exactly as prescribed. Follow the diet advised by your healthcare provider. If you have high cholesterol, follow a low-fat, low-cholesterol diet. Monitor blood sugars as advised. Try to achieve your ideal weight. If you smoke, quit smoking. Tobacco use worsens the effect of diabetes on your blood vessels. If you have high blood pressure, consider buying an automatic blood pressure machine. These are available at most pharmacies. Use this to monitor your blood pressure. Report your blood pressure readings to your healthcare provider. Exercise regularly. Follow-up care Follow up with your healthcare provider, or as advised. You must have a complete eye exam at least once a year, more often if needed. Untreated diabetic retinopathy can lead to complete loss of vision. Occupational therapists can help you adapt to any vision loss you have, including learning techniques to safely administer insulin. When to seek medical advice Call your healthcare provider right away if any of these occur. Increasing blurriness or any sudden changes in your vision Sudden flashes of light inside your eye New floaters (small dots or strings that seem to be moving across your field of vision) Eye pain, redness, or discharge from your eyelid New dark spots appearing in your field of vision Halos around lights Dimness of vision Partial or complete loss of vision Women with diabetes should have a complete eye exam before becoming , or as soon as possible when they find out they are . Retinopathy sometimes worsens during . Your eye exam Your eye healthcare provider uses an eye chart and other tools to check your vision. Then he or sheexamines your eyes for signs of disease. You are given eye drops to widen (dilate) your pupils. Youmay have one or more of the following tests: Tonometry to measure fluid pressure inside the eye. Slit lamp exam to allow the healthcare provider to view the structures of your eye. Ultrasound to create an image of the eye using sound waves. Ultrasound may be used if blood is found in the clear gel that fills the eye (vitreous). Ocular coherence tomography (OCT) to create an image of the retina using light waves. This shows ifthere is fluid leaking into certain parts of the eye. It can also measure the thickness of the retina. Fluorescein angiography This test may be done to check the health of the inside lining of the eye (retina). It also checks the tiny blood vessels (capillaries) that carry blood to the retina. During the test: Photographs are taken of the retina. A dye is then injected into the bloodstream through the arm or hand. The dye travels to the capillaries in the eye. More photographs are taken of the retina. The dye causes the capillaries to stand out on the photographs. You may feel brief nausea during the procedure. For a few hours after the test, your skin, eyes, and urine may appear yellow. Talk with your healthcare provider for more information about this test. Date Last Reviewed: 04/30/201619996581-2824 [employer]. [address] [place] [address]. All rights reserved. This information is not intended as a substitute for professional medical care. Always follow your healthcare professional's instructions. documented in this encounter Progress Notes * Naomi Lino LPN - 10/15/2023 5:13 PM EST Straight cath per order of Dr Stein/sterile technique/tolerated well. Gave specimen to daughter, she will take specimen to [facility] lab as she has orders from urology. Bladder drained for 300 mL of cloudy yellow urine/disposed of urine Thank you * Yulia Stein DO - 10/15/2023 4:21 PM EST SUBJECTIVE: Chief Complaint Patient presents with Follow Up Medication Administration Flu and/or Pneumo Inj HPI: Karla Rowland is a 78 year old female who presents today for regular return. Her has been in the hospital and she has been alone at home. Daughter notes that she took extra morning and evening medications. She believes pt took at least 3 extra morning doses and an evening dose in the last 24-36 hours. Pt does not recall but seems more confused per daughter. Pt tells me she only has been eating yogurt. Daughter states she gets meals on wheels but unclear if she is actually eating them. Not showering on own. Often has wet diaper and is lying in it. They do not yet have waiver services set up. Pt has had difficulty getting a clean catch for urology. PHM: Patient Active Problem List Diagnosis Code Advance directive discussed with patient Z71.89 Pernicious anemia D51.0 Other iron deficiency anemia D50.8 Hypothyroidism E03.9 Type 2 diabetes mellitus with hemoglobin A1c goal of less than 8.0% (HCC) E11.9 DYSLIPIDEMIA, GOAL LDL BELOW 100 E78.5 Attention deficit disorder without hyperactivity F98.8 Obsessive-compulsive disorder F42.9 Memory problem R41.3 Unspecified mood (affective) disorder (HCC) F39 Iron deficiency anemia due to chronic blood loss D50.0 Encounter for antineoplastic chemotherapy Z51.11 Hypomagnesemia E83.42 B12 deficiency E53.8 History of subarachnoid hemorrhage Z86.79 Cavernous malformation Q28.3 Fatty liver K76.0 Radiation proctitis K62.7 Epilepsy, tonic-clonic (HCC) G40.409 Closed nondisplaced fracture of first cervical vertebra with routine healing S12.001D Encounter for venous access device care Z45.2 History of cervical cancer Z85.41 Hypertension associated with type 2 diabetes mellitus E11.59, I15.2 Low phosphate levels E83.39 Age-related osteoporosis without current pathological fracture M81.0 Bipolar disorder, in partial remission, most recent episode depressed (HCC) F31.75 Post-traumatic stress disorder, chronic F43.12 Type 2 diabetes mellitus with other circulatory complications (HCC) E11.59 Bipolar disorder, current episode depressed, mild (HCC) F31.31 Hypothyroidism due to acquired atrophy of thyroid E03.4 Portal hypertension (HCC) K76.6 Asthma with severity to be determined J45.909 Generalized idiopathic epilepsy and epileptic syndromes, not intractable, without status epilepticus (HCC) G40.309 Cervical adenocarcinoma (HCC) C53.9 Cirrhosis of liver without ascites (HCC) K74.60 Current Outpatient Medications Medication Sig Dispense Refill Latanoprost 0.005 % Ophthalmic Solution (Xalatan) Instill 1 Drop into both eyes at bedtime. Empagliflozin 10 MG Oral Tablet (Jardiance) Take 1 Tablet by mouth in the morning. 90 Tablet 3 Candesartan Cilexetil 16 MG Oral Tablet (Atacand) Take 1 Tablet by mouth in the morning. In the morning.. 100 Tablet 3 metFORMIN HCl ER 750 MG Oral Tablet Extended Release 24 Hour (Glucophage XR) Take 2 Tablets by mouth in the morning. 180 Tablet 2 DULoxetine HCl 60 MG Oral Capsule Delayed Release Particles (Cymbalta) Take 1 Capsule by mouth in the morning. 30 Capsule 3 B-12 Compliance Injection 1000 MCG/ML Injection Kit (Cyanocobalamin) Inject 1,000 mcg into a large muscle every 30 days. 1 mL 3 Albuterol Sulfate HFA 108 (90 Base) MCG/ACT Inhalation Aerosol Solution Inhale 2 Puffs by mouth every 6 hours as needed for Wheezing. 18 g 3 Acetaminophen 325 MG Oral Tablet (Tylenol) Take 1 Tablet by mouth every 6 hours as needed for Pain,Moderate. (Patient taking differently: Take 2 Tablets by mouth every 6 hours as needed for Pain, Moderate.) 30 Tablet 3 Gabapentin 100 MG Oral Capsule (Neurontin) Take 1 Capsule by mouth in the morning and 1 Capsule at noon and 1 Capsule before bedtime. (Patient taking differently: Take 1 Capsule by mouth in the morning and 1 Capsule in the evening. Take 100mg in the morning and 200mg in the evening.) 90 Capsule 3 Thiamine Mononitrate 100 MG Oral Tablet (RA Vitamin B-1) Take 1 Tablet by mouth in the morning. 90 Tablet 3 Mirtazapine 30 MG Oral Tablet (Remeron) Take 1 Tablet by mouth at bedtime. 30 Tablet 6 Loperamide HCl 2 MG Oral Capsule (Imodium) Take 1 Capsule by mouth 4 times a day as needed for Diarrhea. Purchases OTC 30 Capsule 6 Multi-Vitamins Oral Tablet Take 1 Tablet by mouth in the morning. 30 Tablet 6 Insulin Glargine Solostar 100 UNIT/ML Subcutaneous Solution Pen-injector Inject 54 Units under the skin at bedtime. 60 mL 0 ARIPiprazole 5 MG Oral Tablet (Abilify) Take 1 Tablet by mouth in the morning. (Prescribed by Dr. Linder). Melatonin 5 MG Oral Tablet Take 1 Tablet by mouth at bedtime. Deltana Carbonate ER 300 MG Oral Tablet Extended Release (Lithobid ER) TAKE ONE TABLET BY MOUTH DAILY AT BEDTIME (Patient taking differently: 1.5 Tablets at bedtime.) 90 Tablet 0 Vitron-C 65-125 MG Oral Tablet (Iron-Vitamin C 65-125 mg per tab) TAKE 1 TABLET BY MOUTH ONCE DAILYIN THE MORNING 30 Tablet 3 levETIRAcetam 1000 MG Oral Tablet Take 1 Tablet by mouth in the morning and 1 Tablet before bedtime. 60 Tablet 3 Ezetimibe 10 MG Oral Tablet (Zetia) Take 1 Tablet by mouth in the morning. 30 Tablet 3 oxyBUTYnin Chloride 5 MG Oral Tablet (Ditropan) Take 1 Tablet by mouth every 8 hours as needed for Bladder spasms. Levothyroxine Sodium 25 MCG Oral Tablet (Levoxyl) TAKE 3 TABLETS IN THE MORNING THU-SAT and TAKE 4 TABLETS IN THE MORNING ON THURSDAY 88 Tablet 2 OneTouch Ultra In Vitro Strip (Glucose Blood) USE TO TEST BLOOD SUGAR THREE TIMES DAILY.E11.9 300 Strip 3 Glucose Blood In Vitro Strip Use up to 7 times a day as directed 550 Strip 6 Nystatin 167853 UNIT/GM External Powder (Nystop) Apply topically to affected area as needed (skin irritation). Apply up to 2 times a day 60 g 3 BD Pen Needle Short U/F 31G X 8 MM (Insulin Pen Needle) USE DIRECTED ONCE DAILY WITH INSULIN 100Each 1 Current Facility-Administered Medications Medication Dose Route Frequency Provider Last Rate Last Admin albuterol sulfate (PROVENTIL) (2.5 MG/3ML) 0.083% inhalation solution 2.5 mg 2.5 mg Nebulizer Q4H PRN Abhinav Sebastian III, MD Past Medical History: Diagnosis Date Anxiety state Anxiety State Attention deficit disorder without hyperactivity Benign neoplasm of colon 12/20/08 multiple polyps removed- villous adenomas--repeat 1 year Depressive disorder, not elsewhere classified Depression Diabetic eye exam (HCC) 02/02/13 DM type 2, not at goal (HCC) Dyslipidemia, goal LDL below 100 11/08/2009 Per Lipid Taxonomy. Fracture of bone, closed femur fx Glaucoma dr gonzalez Hypertension Hypothyroidism Hypothyroidism due to acquired atrophy of thyroid 12/09/2022 Menopause 2002 Obsessive-compulsive disorder Other specified iron deficiency anemias Pleural effusion on left 03/26/2014 Past Surgical History: Procedure Laterality Date COLONOSCOPY, DIAGNOSTIC (RECTUM) 02/10/2014 COLONOSCOPY FLEXIBLE PROXIMAL DIAGNOSTIC performed by Jose Hart MD at ENDOSCOPY [facility] COLONOSCOPY, DIAGNOSTIC (RECTUM) 09/03/2016 colonic angioectasias, diverticulosis/COLONOSCOPY FLEXIBLE PROXIMAL DIAGNOSTIC performed by Marcia Hart MD at ENDOSCOPY [facility] COLONOSCOPY, DIAGNOSTIC (RECTUM) 12/17/2018 radiation proctitis, fair prep, repeat 2 wks/COLONOSCOPY FLEXIBLE PROXIMAL DIAGNOSTIC performed by Adalberto Chen MD at ENDOSCOPY [facility] COLONOSCOPY, DIAGNOSTIC (RECTUM) 12/09/2018 adenomatous polyp, radiation proctitis, repeat 5 yrs//INPT [facility] COLONOSCOPY, DIAGNOSTIC (RECTUM) N/A 02/07/2019 COLONOSCOPY FLEXIBLE PROXIMAL DIAGNOSTIC performed by Seth Rg MD at ENDOSCOPY [facility] COLONOSCOPY, DIAGNOSTIC (RECTUM) N/A 01/14/2023 [facility], colonoscopy, non-bleeding colonic angioectasis, limited sigmois diverticulosis, / no specimens collected / COLONOSCOPY/REMOVE LESION 12/20/2008 multiple polyps removed- villous adenomas--repeat 1 year COLONOSCOPY/REMOVE LESION 09/24/2011 [facility]'S APC'd. repeat in 5 years DENTAL SURGERY PROCEDURE NEC wisdom teeth extraction DIABETIC EYE EXAM 02/02/2013 EGD, FLEXIBLE, DIAGNOSTIC 02/10/2014 ESOPHAGOGASTRODUODENOSCOPY (EGD), FLEXIBLE, TRANSORAL, DIAGNOSTIC performed by Jose Hart MD at ENDOSCOPY [facility] EGD, FLEXIBLE, DIAGNOSTIC 08/02/2015 mild gastritis, , acid reflux/[facility] EGD, FLEXIBLE, DIAGNOSTIC 09/03/2016 single non-bleeding angioectasia, HH/ESOPHAGOGASTRODUODENOSCOPY (EGD), FLEXIBLE, TRANSORAL, DIAGNOSTIC performed by Jose Hart MD at [facility] EGD, FLEXIBLE, DIAGNOSTIC 12/09/2018 hiatal hernia/[facility] EGD, FLEXIBLE, DIAGNOSTIC N/A 01/14/2023 [facility], EGD, normal esophagus, z-line regular, mild portal hypertensive gastropathy / no specimens collected / INCISION OF FEMUR W/FIXATION/CAST ANA FLEX SIGMOID DIAGNOSITIC 01/04/2019 radiation proctitis, repeat 4 wks/SIGMOIDOSCOPY FLEXIBLE DIAGNOSTIC performed by Adalberto Chen MD at ENDOSCOPY [facility] ANA FLEX SIGMOID DIAGNOSITIC N/A 06/01/2019 SIGMOIDOSCOPY FLEXIBLE DIAGNOSTIC performed by Seth Rg MD at ENDOSCOPY [facility] LIGATE/CUT OVIDUCT(S) MAMMOGRAM - BILATERAL 05/17/2007 birad code 1 PELVIC EXAM UNDER ANESTHESIA, NOT LOCAL N/A 02/24/2018 PELVIC EXAMINATION UNDER ANESTHESIA performed by Shaila Luevano DO at OR [facility] PLACE CATHETER IN ARTERIES 03/14/2014 CATHETER PLACEMENT, BRACHIOCEPHALIC, THIRD ORDER BRANCH performed by Jamarcus Mckeon MD at OR [facility] PLACE CATHETER IN ARTERIES 03/21/2014 CATHETER PLACEMENT, BRACHIOCEPHALIC, THIRD ORDER BRANCH performed by Jamarcus Mckeon MD at OR [facility] REMOVAL OF APPENDIX REPAIR SHOULDER CUFF AVULSION UTERINE TANDEM/VAGINAL OVOIDS FOR BRACHYTX N/A 02/09/2018 INSERTION OF UTERINE TANDEMS FOR BRACHYTHERAPY performed by Shaila Luevano DO at OR [facility] VAGINAL DELIVERY ONLY times 2 VIDEO CAPSULE ENDOSCOPY 02/02/2009 negative Review of patient's allergies indicates: Allergen Reactions Lidocaine Viscous [Lidocaine Hcl] Edema face/lips/tongue Simethicone Hives Avandia [Rosiglitazone Maleate] Weight gain, anemia, swelling,seizure, memory loss Bactrim [Sulfamethoxazole-Trimethoprim] Nausea/vomiting Citalopram tremor Citrate Of Magnesia ? HIVES AND SWELLING Depakote [Depakote Er] Weakness, ataxia, confusion Food (See Comments) Only RAW yellow onions - nausea/vomiting Klonopin [Clonazepam] Makes her agitated Prednisone Hives Reglan [Metoclopramide Hcl] ? HIVES AND SWELLING Zocor [Simvastatin] Leg pains Family History Problem Relation Age of Onset Heart Disorder Mother mi Diabetes Mother Cancer Mother nonhodgkins lymphoma Arthritis Mother Hypertension Mother Gastro-intestinal disorder Mother reflux Heart Disorder Father cva Diabetes Father Hypertension Father No Past Hx Daughter No Past Hx Daughter Gastro-intestinal disorder Brother crohn's disease Mental Disorder Brother Blood Disorder Brother anemia Blood Disorder Uncle (Unspecified) anemia Blood Disorder Cousin (Unspecified) anemia Family Status Relation Status Mo Fa Susan Alive Susan Alive Bro Alive UNCLE (Not Specified) Cousin (Unsp (Not Specified) Social History Tobacco Use Smoking status: Former Packs/day: 0.20 Years: 20.00 Additional pack years: 0.00 Total pack years: 4.00 Types: Cigarettes Quit date: 05/11/2019 Years since quittin.4 Passive exposure: Past Smokeless tobacco: Never Substance Use Topics Alcohol use: No Vaping/E-Cigarette Use Vaping/E-Cigarette Use Never User Passive Exposure No Counseling Given? No Vaping/E-Cigarette Substances Nicotine No Other No Flavoring No THC No Cannabidiol (CBD) No Vaping/E-Cigarette Devices Disposable No Pre-filled or Refillable Cartridge No Refillable Tank No Pre-filled Pod No REVIEW OF SYSTEMS: Review of Systems Constitutional: Negative for chills, fatigue, fever and unexpected weight change. Respiratory: Negative for cough, chest tightness, shortness of breath and wheezing. Cardiovascular: Negative for chest pain, palpitations and leg swelling. Gastrointestinal: Negative for abdominal pain, constipation, diarrhea, nausea and vomiting. Musculoskeletal: Negative for arthralgias, gait problem and joint swelling. Skin: Negative for color change, pallor and rash. OBJECTIVE: BP 110/60 | Pulse 94 | Temp 36.4 C (97.5 F) (Tympanic) | Resp 14 | Ht 1.575 m (5' 2") | Wt 66 kg (145 lb 8 oz) | SpO2 97% | BMI 26.61 kg/m | BSA 1.7 m PHYSICAL EXAM: Physical Exam Constitutional: General: She is not in acute distress. Appearance: She is well-developed. Cardiovascular: Rate and Rhythm: Normal rate and regular rhythm. Heart sounds: Normal heart sounds. No murmur heard. No friction rub. No gallop. Pulmonary: Effort: Pulmonary effort is normal. No respiratory distress. Breath sounds: Normal breath sounds. No wheezing or rales. Abdominal: General: Bowel sounds are normal. There is no distension. Palpations: Abdomen is soft. Tenderness: There is no abdominal tenderness. There is no guarding. Genitourinary: Comments: Extensive redness and excoriation in vulvar area extending to gluteal crease, diaper is soaked with urine Musculoskeletal: General: No tenderness or deformity. Normal range of motion. Skin: General: Skin is warm and dry. Coloration: Skin is not pale. Findings: No erythema or rash. Neurological: Mental Status: She is alert and oriented to person, place, and time. ASSESSMENT/PLAN: (Z78.9) Unable to care for self (primary encounter diagnosis) Plan: Advised daughter that she cannot be at home alone and needs to have supervision. Daughter notes she can likely be there through weekend but will be difficult with work. remains hospitalized. She will discuss with family. Will reach out to waiver. [facility] made aware and will discuss as well. Discussed senior living placement. (R32) Urinary incontinence, unspecified type Plan: Encouraged to change diaper as soon as it is soiled. Encouraged to put powder on twice daily.Keep clean and dry. Advised not to lie in soiled linens or diapers. (F39) Unspecified mood (affective) disorder (HCC) (F31.75) Bipolar disorder, in partial remission, most recent episode depressed (HCC) Plan: Follows with psychiatry. No change for now. Will need to monitor with extra medication dosages. Seems to be at baseline. Daughter will monitor meds. (G40.409) Epilepsy, tonic-clonic (HCC) Plan: daughter will monitor given extra doses of medication. Daughter will administer appropriately. (E11.9) DM type 2 nursing care encounter ([facility]) Plan: DIABETIC EYE EXAM, CANCELED: TELEMEDICINE DIABETIC EYE Will await next visit. (Z23) Need for prophylactic vaccination and inoculation against influenza Plan: INFLUENZA VACC, QUAD, HIGH DOSE (FLUZONE HD) Vaccine given. See admin record. Follow-up: 1 month, await [facility] home visit. Total time today including reviewing chart before the visit, pertinent labs, imaging reports, face to face time, and documentation time was 37 minutes. Yulia Stein DO * Naomi Lino LPN - 10/15/2023 3:50 PM EST Tripled dosed morning medication today. PRE - ADMINISTRATION DOCUMENTATION Are you experiencing any cold symptoms or fever? No Have you had Guillain-[place] Syndrome (an illness that causes paralysis) within the last 6 weeks? No Have you had the flu shot in the past? YES Have you ever had a reaction to the flu shot? No Naomi Lino LPN, 10/15/2023 4:05 PM Immunization Administration Documentation Time Out Procedure Performed: Yes Patient Identified (Ask Name/Date of ): Yes Does the patient have a fever greater than 101 degrees today? No Patient allergic to latex? No VFC Stock: No Immunization(s) verified: Yes, Immunization Name: Flu, VIS Sheet(s) given: Yes Verified Side and Site: Yes Verified Shot(s) with Parent(s)/Patient: Yes The importance of having a yearly diabetic eye exam has been discussed with patient. Order and/or Referral placed along with patient instructions. Provider made aware. Naomi Lino LPN documented in this encounter Nursing Notes * Naomi Lino LPN - 10/15/2023 4:08 PM EST Blood sugars running high. Took three morning doses of all medications today. documented in this encounter Plan of Treatment Upcoming Encounters Date Type Department Care Team (Late st Contact Info) Description 11/13/2023 9:30 AM EST Hem/Onc Treatment Hematology/Oncology Treatment, [address] [place] [address] Roro, Chair 10 Hem Onc [address] [place] [address] 12/04/2023 9:20 AM EST Office Visit Family Practice [address] [address] Yulia Stein DO 293 [place] [address] 12/11/2023 9:30 AM EST Hem/Onc Treatment Hematology/Oncology Treatment, [address] [address] Roro, Chair 10 Hem Onc [address], [place] [address] 12/11/2023 2:00 PM EST Nurse Only Ancillary [address] [place] [address] College, Nurse Annual Wellness Visit [address] [place] [address] 12/30/2023 10:45 AM EST Office Visit Hematology/Oncology [facility] [address] [address] Viraj Atkins MD [address] [place] [address], [place] [address] Scheduled Procedures Name Priority Associated Diagnoses Date/Ti [...] D LEVEL ONCE IN A LIFETIME-USE SMARTSET# [id number] Completed 03/28/2014, 09/08/2013 Hepatitis B Completed 09/01/2018, [...] Not on filedocumented as of this encounter Visit Diagnoses Diagnosis Unable to care for self- Primary Urinary incontinence, unspecified type Unspecified mood (affective) disorder (HCC) Epilepsy, 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 No Healthcare Agents on File Name Relationship Healthcare Agent [facility] Communication Antonio Janett Spouse Health Care Agen t (per Health Care Power of Creasing Machine Operator document) Care Teams Chemicals Fermentation Operator Relationship Specialty Start Date End Date Yulia Stein DO [facility] [place] [address] PCP - General Family Medicine 05/15/23 documented as of this encounter
--- OUTSIDE RECORDS SUMMARY | 2023-10-21 00:10 | External Medical Summary | Summary of Care ---
Author Name Unknown Organization [facility] Address [address] [place] [address] Phone [phone] Care Team Providers Care Assisted Living Manager Name Role Phone Yulia Stein DO Primary Care Provider [phone] Reason for Visit * Reason Comments Silicator Documentation Encounter Details Date Type Department Care Team (Late st Contact Info) Description 10/19/2023 2:30 PM EST Silicator [facility], [facility] [address] [place] [address] Val Navarro, [facility] [address] [place] [address] Allergies Active Allergy Reactions Criticality Noted Date [...] by mouth at bedtime. 0 05/04/2023 Active [place] Carbonate ER 300 MG Oral Tablet Extended Release (Lithobid ER) TAKE ONE TABLET BY MOUTH DAILY AT BEDTIME 90 Tablet 0 11/17/2022 3 Active Additional Information Patient taking differently: 450 mg HS, Reported on 09/04/2023 Nystatin 318936 UNIT/GM External Powder (Nystop)Indications: Skin irritation Apply [...] by psych monthly Reports she is stable [place] was recently stopped Duloxetine 60mg daily Mirtazapine [...] year ACTIVE CASE MANAGEMENT Kelsi Gordon RN [phone] 12/18/2008 09/16/2010 DIAB RENAL MANIF ADULT 06/21/200806/15 [...] Notes * Val Navarro LCSW - 10/19/2023 3:46 PM EST Return call from Bessie (sttep daughter) [phone]. A few more questions were answered. Worker offered to sent records to any choice of facilities to facilitate the placement process. Bessie declined at this time. Worker again offered to assist should they make a decision on a community SNF. Bessie will take the above under advisement. Val Navarro LCSW [facility] Screen Printing Equipment Setter [facility] [phone] documented in this encounter Plan of Treatment Upcoming Encounters Date Type Department Care Team (Late st Contact Info) Description 11/13/2023 9:30 AM EST Hem/Onc Treatment Hematology/Oncology Treatment, [address] [place] [address] Roro, Chair 10 Hem Onc Scenery [address] [place] [address], [place] [address] 12/04/2023 9:20 AM EST Office Visit Family Practice 65 [facility] 293 [facility] [place] [address] Yulia Stein DO 293 [place] [address] 12/11/2023 9:30 AM EST Hem/Onc Treatment Hematology/Oncology Treatment, [address] [place] [address] Roro, Chair 10 Hem Onc Scenery 200 [place] [address] 12/11/2023 2:00 PM EST Nurse Only Ancillary [address] [place] [address] College, Nurse Annual Wellness Visit [address] [place] [address] 12/30/2023 10:45 AM EST Office Visit Hematology/Oncology [facility] [place] [address] Viraj Atkins MD 200 [facility] [place] [address] Scheduled Procedures Name Priority Associated Diagnoses Date/Ti [...] D LEVEL ONCE IN A LIFETIME-USE SMARTSET# [id number] Completed 03/28/2014, 09/08/2013 Hepatitis B Completed 09/01/2018, 01/2018, 09/28/2017 Zoster Vaccines Completed 10/17/2021, 08/03/2021, 06/04/2010 Pneumococcal Vaccine: 65+ Years Completed 04/06/2023, [...] the patient have Health Care Power of Quiller Runner? No Healthcare Agents on File Name Relationship Healthcare Agent [facility] Communication Antonio Janett Spouse Health Care Agen t (per Health Care Power of Quiller Runner document) Care Teams Assisted Living Manager Relationship Specialty Start Date End Date Yulia Stein DO [address] [place] [address] PCP - General Family Medicine 05/15/23 documented as of this encounter
--- OUTSIDE RECORDS SUMMARY | 2023-10-21 00:11 | External Medical Summary | Summary of Care ---
Author Name Unknown Organization [facility] Address [address] [place] [address] Phone [phone] Care Team Providers Care Retail Associate Name Role Phone Yulia Stein DO Primary Care Provider [phone] Reason for Visit * Reason Onset Date Comments Advice 10/16/2023 Med Encounter Details Date Type Department Care Team (Late st Contact Info) Description 10/16/2023 Telephone Family Practice 65 [facility] [place] [address] [place] [address] Yulia Stein DO 293 [place], [place] [id number] Advice (Med ) Allergies Active Allergy Reactions Criticality Noted Date [...] as of this encounter (statuses as of 10/16/2023) Medications Medication Sig Dispensed Refills Start Date [...] by mouth at bedtime. 0 05/04/2023 Active [place] Carbonate ER 300 MG Oral Tablet Extended Release (Lithobid ER) TAKE ONE TABLET BY MOUTH DAILY AT BEDTIME 90 Tablet 0 11/17/2022 3 Active Additional Information Patient taking differently: 450 mg HS, Reported on 09/04/2023 Nystatin [id number] UNIT/GM External Powder (Nystop)Indications: Skin irritation Apply [...] as of this encounter (statuses as of 10/16/2023) Active Problems Problem Noted Date Diagnosed Date [...] by psych monthly Reports she is stable [place] was recently stopped Duloxetine 60mg daily Mirtazapine [...] as of this encounter (statuses as of 10/16/2023) Resolved Problems Problem Noted Date Diagnosed Date [...] year ACTIVE CASE MANAGEMENT Kelsi Gordon RN [phone] 12/18/2008 09/16/2010 DIAB RENAL MANIF ADULT 06/21/200806/15 Overview: 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 Mixed dyslipidemia 9 Overview: Per Lipid Taxonomy. documented as of this encounter (statuses as of 10/16/2023) Immunizations Name Administration Dates Next Due COVID-19 mRNA, LNP-s, No Pre serve, 2-Dose Series (Moderna) 02/06/2021,01/09/2021 COVID-19, mRNA, LNP-s, PF, B ooster, 100mcg/0.5mg (Moderna) 10/12/2021 Covid-19, Mrna, Lnp-s, Pf, B ivalent, 30 Mcg, IM, 12 yrs and above ([employer]) 05/15/2023 H1N1 2009 Influenza, IM 12/20/2009 HEP [...] Split, I IV3, With Preserve, Inj 08/10/2015,09/01/2014,09/16/2012,08/01,10/08/2010,09/13/2009,10/11/20 08,09/14/2007,10/13/2006,10/31/2005 08/28/2012 TD, Preservative Free 11/18/2017 TDAP (age [...] Answer Date Recorded PHQ Adult Total Score 0 08/28/2023 Hunger Vital Sign Answer Date Recorded Within the past 12 months, y ou worried that your food would run out before you got the money to buy more. Never true 08/28/20 23 Within the past 12 months, t he food you bought just didn't last and you didn't have money to get more. Never true 08/28/2023 Sex and Gender Information Value Date Recorded [...] No 02/23/2018 documented as of this encounter Miscellaneous Notes * Telephone Encounter - Yulia Stein DO - 10/16/2023 5:08 PM EST Noted. * Telephone Encounter - Naomi Lino LPN - 10/16/2023 5:02 PM EST Called and spoke to daughter, daughter states that patient took a nap and is feeling better and is acting herself. Will continue to monitor. Thank you * Telephone Encounter - Yulia Stein DO - 10/16/2023 1:21 PM EST If she is worse and hallucinating, to ED. * Telephone Encounter - Naomi Lino LPN - 10/16/2023 12:10 PM EST Do you have anything particular to add, I will let her know it is hard to tell since we didn't knowhow she was taking meds. Also will ask if urine was dropped off. Thank you * Telephone Encounter - Lisa Vail OSA - 10/16/2023 11:48 AM EST Followed up on your request on how to take med Did take meds away from her When she took the ones she needed she progressively worse to point where she needed a wheel chair at doctor appt Is hallucinating Wonders if its the meds causing this documented in this encounter Plan of Treatment Upcoming Encounters Date Type Department Care Team (Late st Contact Info) Description 11/13/2023 9:30 AM EST Hem/Onc Treatment Hematology/Oncology Treatment, [place] 200 [place] [address] Roro, Chair 10 Hem Onc Scenery 200 [facility] [place], [place] [address] 12/04/2023 9:20 AM EST Office Visit Family Practice 65 [facility] 293 [place] [address] Yulia Stein DO 293 [facility] [place] [address] 12/11/2023 9:30 AM EST Hem/Onc Treatment Hematology/Oncology [facility] 200 [facility] [place] [address] Roro, Chair 10 Hem Onc Scenery 200 [facility] [place], [place] [address] 12/11/2023 2:00 PM EST Nurse Only Ancillary [address] [place] [address] College, Nurse Annual Wellness Visit [address] [place] [address] 12/30/2023 10:45 AM EST Office Visit Hematology/Oncology [facility] 200 [facility] [place] [address] Viraj Atkins MD 200 [place] [address] Scheduled Procedures Name Priority Associated Diagnoses Date/Ti [...] D LEVEL ONCE IN A LIFETIME-USE SMARTSET# [id number] Completed 03/28/2014, 09/08/2013 Hepatitis B Completed 09/01/2018, [...] the patient have Health Care Power of Automatic Trimming Sewer? No Healthcare Agents on File Name Relationship Healthcare Agent Relationshi p Communication Antonio Janett Spouse Health Care Agen t (per Health Care Power of Automatic Trimming Sewer document) Care Teams Retail Associate Relationship Specialty Start Date End Date Yulia Stein DO [address] [place] [address] PCP - General Family Medicine 05/15/23 documented as of this encounter
--- OUTSIDE RECORDS SUMMARY | 2023-10-21 00:11 | External Medical Summary | Summary of Care ---
Author Name Unknown Organization [facility] Address [address] [place] [address] Phone [phone] Care Team Providers Care Manager Department Name Role Phone Emil Yulia Irene GALEAS Primary Care Provider + [phone] Reason for Visit * Reason Onset Date Comments [facility]: Maintenance 10/19/2023 Encounter Details Date Type Department Care Team (Late st Contact Info) Description 10/19/2023 Telephone [facility], [facility] [address] [place] [address] Sejal Andrade RN [address] [place] [address] [facility]: Maintenance Allergies Active Allergy Reactions Criticality Noted Date [...] for Wheezing. 18 g 3 04/23/2023 Active [employer] Media[employer] Ultra In Vitro Strip (Glucose Blood)Indications:di abetes [...] 30 Capsule 6 04/23/2023 Active Multi-Vitamins Oral TabletIndications:Ty pe 2 [...] by mouth at bedtime. 0 05/04/2023 Active [place] Carbonate ER 300 MG Oral Tablet Extended Release (Lithobid ER) TAKE ONE TABLET BY MOUTH DAILY AT BEDTIME 90 Tablet 0 11/17/2022 3 Active Additional Information Patient taking differently: 450 mg HS, Reported on 09/04/2023 Nystatin [id number] UNIT/GM External Powder (Nystop)Indications: Skin irritation Apply [...] by psych monthly Reports she is stable [place] was recently stopped Duloxetine 60mg daily Mirtazapine [...] year ACTIVE CASE MANAGEMENT Kelsi Gordon RN [phone] 12/18/2008 09/16/2010 DIAB RENAL MANIF ADULT 06/21/200806/15 [...] 30 Mcg, IM, 12 yrs and above ([employer]) 05/15/2023 H1N1 2009 Influenza, IM 12/20/2009 HEP [...] Influenza, Split, I IV3, With Preserve, Inj 08/10/2015,09/01/2014,09/16/2012,08/01,10/08/2010,09/13/2009,10/11/20,09/14/2007,10/13/2006 08/28/2012 TD, Preservative Free 11/18/2017 TDAP (age [...] encounter Miscellaneous Notes * Telephone Encounter - Sejal Andrade RN - 10/19/2023 10:58 AM EST Spoke with pt's DtrVero. She reports she stayed with pt over the weekend and things went well but she had to be there to help with basic ADL's, meds, meals. is still in hospital and most like to be discharged on palliative care at some point. Dtr feels he will not be able to care for her They had a family meeting over the weekend with , pt and dtrs. They have decided that fdc placement would be best for pt. Dtr also spoke with BONNIE PHELAN. Plan is for dtr to take pt to ED today for placement as she is unable to be there to take care of pt 22/06. Dtr will reach out with further updates. documented in this encounter Plan of Treatment Upcoming Encounters Date Type Department Care Team (Late st Contact Info) Description 10/19/2023 12:30 PM EST Assistant Professor Of Mathematics [facility], [facility] [address] [facility] [place] [address] Val Navarro, [facility] [address] [place] [address] 11/13/2023 9:30 AM EST Hem/Onc Treatment Hematology/Oncology Treatment, [place] [address] [place] [address] Roro, Chair 10 Hem Onc Scenery [address] [place] [address] 12/04/2023 9:20 AM EST Office Visit Family Practice 65 [address], [place] 293 [place] [address] Yulia Stein DO 293 [facility] [address] 12/11/2023 9:30 AM EST Hem/Onc Treatment Hematology/Oncology Treatment, [place] [address] [place] [address] Roro, Chair 10 Hem Onc Scenery 200 [facility] [place] [address] 12/11/2023 2:00 PM EST Nurse Only Ancillary 65 [facility] 293 [facility], [place] [address] College, Nurse Annual Wellness Visit 65 [facility] [address] [facility] [address] 12/30/2023 10:45 AM EST Office Visit Hematology/Oncology [facility] [place] [address] [place] [address] Viraj Atkins MD [address] [place] [address] Scheduled Procedures Name Priority Associated Diagnoses Date/Ti [...] D LEVEL ONCE IN A LIFETIME-USE SMARTSET# [id number] Completed 03/28/2014, 09/08/2013 Hepatitis B Completed 09/01/2018, [...] the patient have Health Care Power of Design Architect? No Healthcare Agents on File Name Relationship Healthcare Agent Relationshi p Communication Antonio Janett Spouse Health Care Agen t (per Health Care Power of Design Architect document) Care Teams Manager Department Relationship Specialty Start Date End Date Yulia Stein DO [address] [place] [address] PCP - General Family Medicine 05/15/23 documented as of this encounter
--- OUTSIDE RECORDS SUMMARY | 2023-10-21 00:12 | External Medical Summary | Summary of Care ---
Author Name Unknown Organization [facility] Address [address] [place] [address] Phone [phone] Care Team Providers Care Director Of Scout Work Name Role Phone Yulia Stein DO Primary Care Provider [phone] Reason for Visit * Reason Onset Date Comments Advice 10/16/2023 Med Encounter Details Date Type Department Care Team (Late st Contact Info) Description 10/16/2023 Telephone Family Practice 65 [facility] [place] [address] [place] [address] Yulia Setin DO [address] [place], [place] [phone] Advice (Med ) Allergies Active Allergy Reactions [...] by mouth at bedtime. 0 05/04/2023 Active [place] Carbonate ER 300 MG Oral Tablet Extended Release (Lithobid ER) TAKE ONE TABLET BY MOUTH DAILY AT BEDTIME 90 Tablet 0 11/17/2022 3 Active Additional Information Patient taking differently: 450 mg HS, Reported on 09/04/2023 Nystatin [id number] UNIT/GM External Powder (Nystop)Indications: Skin irritation Apply [...] by psych monthly Reports she is stable [place] was recently stopped Duloxetine 60mg daily Mirtazapine [...] year ACTIVE CASE MANAGEMENT Kelsi Gordon RN [phone] 12/18/2008 09/16/2010 DIAB RENAL MANIF ADULT 06/21/200806/15 [...] 30 Mcg, IM, 12 yrs and above ([employer]X) 05/15/2023 H1N1 2009 Influenza, IM 12/20/2009 HEP [...] 9:30 AM EST Hem/Onc Treatment Hematology/Oncology Treatment, [place] 200 [place] [address] Roro, Chair 10 Hem Onc Scenery 200 [facility] [place], [place] [address] 12/04/2023 9:20 AM EST Office Visit Family Practice 65 [facility] 293 [place] [address] Yulia Stein DO 293 [place] [address] 12/11/2023 9:30 AM EST Hem/Onc Treatment Hematology/Oncology [facility] 200 [place] [address] Roro, Chair 10 Hem Onc Scenery 200 [facility] [place], [place] [address] 12/11/2023 2:00 PM EST Nurse Only Ancillary [address] [place] [address] College, Nurse Annual Wellness Visit [address] [place] [address] 12/30/2023 10:45 AM EST Office Visit Hematology/Oncology [facility] 200 [facility] [place] [address] Viraj Atkins MD 200 [place] [address] Scheduled Procedures Name Priority Associated Diagnoses Date/Ti [...] D LEVEL ONCE IN A LIFETIME-USE SMARTSET# [id number] Completed 03/28/2014, 09/08/2013 Hepatitis B Completed 09/01/2018, [...] the patient have Health Care Power of Engineering Design Manager? No Healthcare Agents on File Name Relationship Healthcare Agent Relationshi p Communication Antonio Janett Spouse Health Care Agen t (per Health Care Power of Engineering Design Manager document) Care Teams Director Of Scout Work Relationship Specialty Start Date End Date Yulia Stein DO [address] [place] [address] PCP - General Family Medicine 05/15/23 documented as of this encounter
--- OUTSIDE RECORDS SUMMARY | 2023-10-21 00:12 | External Medical Summary ---
Author Name Unknown Address Unknown Organization K01:[facility] - [address] [place] [address] Laboratory Report Ordering Provider Test Date Status ODILON LAMAR 10/16/2023 09:01:32 Final Observation Date Value Abnormality Reference (Units ) Status Folic Acid 10/16/2023 09:01:32 >20.0 >4.5 (ng/ mL) Final Performing Location [facility] - [address] [place] [address]
--- OUTSIDE RECORDS SUMMARY | 2023-10-21 00:12 | External Medical Summary ---
Author Name Unknown Address Unknown Organization [id number]:[facility] - [address] [place] [address] Laboratory Report Ordering Provider Test Date Status ODILON LAMAR 10/16/2023 09:01:32 Final Observation Date Value Abnormality Reference (Units ) Status Ferritin 10/16/2023 09:01:32 86 13-150 (ng /mL) Final Postmenopausal women have hi gher ferritin levels than pre-menopausal women. The above reference interval is based on pre-menopausal women. Performing Location [facility] - [address] [place] [address]
--- OUTSIDE RECORDS SUMMARY | 2023-10-21 00:12 | External Medical Summary ---
Author Name Unknown Address Unknown Organization [id number]:LAB[facility]ORY [facility] [place] - [address] [place] [address] Laboratory Report Ordering Provider Test Date Status ODILON LAMAR 10/16/2023 09:01:32 Final Observation Date Value Abnormality Reference (Units ) Status Vitamin B12 10/16/2023 09:01:32 623 513-3505 (pg/mL) Final Performing Location [facility] - [address] [place] [address]
--- OUTSIDE RECORDS SUMMARY | 2023-10-21 00:12 | External Medical Summary | Summary of Care ---
Author Name Unknown Organization [facility] Address [address] [place] [address] Phone [phone] Care Team Providers Care Medical Field Representative Name Role Phone Yulia Stein DO Primary Care Provider [phone] Reason for Visit * Reason Onset Date Comments Medication Refill 10/13/2023 Encounter Details Date Type Department Care Team (Late st Contact Info) Description 10/13/2023 Refill Family Practice [address], [place] [address] [place] [address] Yulia Stein DO [address] [place] [address] Low iron; Low phosphate levels Allergies Active Allergy Reactions Criticality Noted Date [...] by mouth at bedtime. 0 05/04/2023 Active [place] Carbonate ER 300 MG Oral Tablet Extended Release (Lithobid ER) TAKE ONE TABLET BY MOUTH DAILY AT BEDTIME 90 Tablet 0 11/17/2022 3 Active Additional Information Patient taking differently: 450 mg HS, Reported on 09/04/2023 Nystatin 322240 UNIT/GM External Powder (Nystop)Indications :Skin irritation Apply [...] THE MORNING 30 Tablet 3 10/16/2023 Active Vitron-C 65-125 MG Oral Tablet (Iron-Vitamin [...] from asthma ? Reviewed when to call [employer] at home Hypothyroidism due to acquired atrophy of thyroi d 12/09/2022 Bipolar disorder, current episode depressed, mil d 04/08/2022 Last Assessment & Plan: Followed by psych monthly Reports she is stable [place] was recently stopped Duloxetine 60mg daily Mirtazapine [...] year ACTIVE CASE MANAGEMENT Kelsi Gordon RN [phone] 12/18/2008 09/16/2010 DIAB RENAL MANIF ADULT 06/21/200806/15 [...] Seasonal Influenza, Quadriva lent Hd (Fluzone Hd) 10/15/2022,09/27/2021 Seasonal Influenza, Quadriva lent, No Preserve, IM 08/25/2016 Seasonal Influenza, Split, I IV3, With Preserve, Inj 08/10/2015,09/01/2014,09/16/2012,08/01,10/08/2010,09/13/2009,10/11/20,09/14/2007,10/13/2006 08/28/2012 TD, Preservative Free 11/18/2017 TDAP (age 11 and older)(Adacel) 07/21/2007 Varicella Zoster Vaccine (Adult) 06/04/2010 Zoster Vaccine Recombinant (Shingrix) 10/17/2021 ,07/04/2021 documented as of this encounter Social History Tobacco Use Types Packs/Day Years Used Date Smoking Tobacco: Former Cigarettes 0.2 20 Q uit: 05/11/2019 Smokeless Tobacco: Never Alcohol Use Standard Drinks/Week [...] Encounter - Yulia Stein DO - 10/16/2023 3:36 PM EST Rx sent. * Telephone Encounter - Lisa Vail OSA - 10/13/2023 3:04 PM EST REFILL REQUEST FROM [facility] Pending Prescriptions: Disp Refills Vitron-C 65-125 MG Oral Tablet (Iron-Jazmín*30 Tab*3 Last Visit: 08/28/2023 (in office), Visit date not found (telemedicine) Next Visit: 10/15/2023 Last date the medication was ordered: Patient Active Problem List Diagnosis Code Advance [...] Cirrhosis of liver without ascites (HCC) K74.60 Labs: Lab Results Component Value Date/Time CREATININE - [facility] 0.5 08/28/2023 11:40 AM CREATININE - [facility] 0.6 09/26/2020 02:45 PM CREATININE - [facility] 0.6 09/26/2020 02:45 PM CREATININE ISTAT 0.5 10/20/2017 09:19 AM CREATININE, RANDOM URINE - [facility] 33 06/26/2023 04:48 PM CREATININE, RANDOM URINE - [facility] 79 08/10/2017 11:34 AM CREATININE-OUTSIDE LAB 0.45 (A) 09/04/2019 12:00 AM Lab Results Component Value Date/Time POTASSIUM - [facility] 4.7 08/28/2023 11:40 AM POTASSIUM - [facility] 3.8 09/26/2020 02:45 PM POTASSIUM - [facility] 3.8 09/26/2020 02:45 PM POTASSIUM POCT - [facility] 4.2 03/26/2014 09:13 PM POTASSIUM, WHOLE BLOOD - [facility] 3.5 03/14/2014 03:55 PM POTASSIUM-OUTSIDE LAB 3.7 09/04/2019 12:00 AM Lab Results Component Value Date/Time TSH - [facility] 5.43 (H) 02/23/2023 03:17 PM TSH - [facility] 2.24 10/26/2019 10:00 AM TSH - OUTSIDE LAB 2.590 08/30/2019 12:00 AM Lab Results Component Value Date/Time LDL CHOLESTEROL (CALCULATED) - [facility] 09/26/2020 02:45 PM Uninterpretable, recommend direct LDL cholesterol testing. LDL CHOLESTEROL (CALCULATED) - [facility] 63 10/26/2019 10:00 AM LDL CHOLESTEROL (DIRECT MEASURE) - [facility] 95 12/05/2021 09:09 AM LDL CHOLESTEROL (DIRECT MEASURE) - [facility] 96 04/15/2021 08:35 AM LDL CHOLESTEROL (DIRECT MEASURE) - [facility] 57 06/24/2018 10:02 AM LDL CHOLESTEROL (DIRECT MEASURE) - [facility] 107 06/15/2017 02:55 PM Lab Results Component Value Date/Time ALT - [facility] 37 (H) 08/28/2023 11:40 AM ALT - [facility] 26 09/26/2020 02:45 PM ALT LIVER FIB PANEL 20 09/11/2017 10:31 AM ALT-OUTSIDE LAB 25 11/22/2017 12:00 AM ALTERNARIA IGE - [facility] CLASS 0-NEGATIVE 08/04/1997 11:41 AM Hemoglobin AIC Results: Lab Results Component Value Date/Time HEMOGLOBIN A1C - [facility] 5.9 (H) 06/26/2023 04:44 PM HEMOGLOBIN A1C - [facility] 9.5 (H) 12/05/2021 09:09 AM HEMOGLOBIN A1C - [facility] 7.6 (H) 11/15/2021 12:22 PM HEMOGLOBIN A1C - [facility] 5.9 (H) 09/26/2020 02:45 PM HEMOGLOBIN A1C - [facility] 5.9 (H) 09/26/2020 02:45 PM HEMOGLOBIN A1C - [facility] 4.7 05/08/2020 09:19 AM HEMOGLOBIN A1C POCT - [facility] 7.2 (H) 01/27/2023 01:53 PM HEMOGLOBIN A1C POCT - [facility] 4.7 07/22/2022 02:40 PM HEMOGLOBIN A1C POCT - [facility] 6.8 (H) 03/05/2022 09:11 AM documented in this encounter Plan of Treatment Upcoming Encounters Date Type Department Care Team (Late st Contact Info) Description 11/13/2023 9:30 AM EST Hem/Onc Treatment Hematology/Oncology Treatment, [place] [address] [place] [address] Roro, Chair 10 Hem Onc [address] [place] [address] 12/04/2023 9:20 AM EST Office Visit Family Practice [address] [facility] 293 [facility] [place] [id number] Yulia Stein DO 293 [facility], [place] [address] 12/11/2023 9:30 AM EST [facility] [address] [facility], [place] [address] Roro, Chair 10 Hem Onc [address] [place] [address] 12/11/2023 2:00 PM EST Nurse Only Ancillary [address] [place] [address] College, Nurse Annual Wellness Visit [address] [place] [address], [place] [address] 12/30/2023 10:45 AM EST Office Visit Hematology/Oncology [address] [place] [address] Viraj Atkins MD 200 [facility] [place] [address] Scheduled Procedures Name Priority Associated Diagnoses Date/Ti [...] D LEVEL ONCE IN A LIFETIME-USE SMARTSET# 13902 Completed 03/28/2014, 09/08/2013 Hepatitis B Completed 09/01/2018, [...] as of this encounter Visit Diagnoses Diagnosis Low iron Iron deficiency anemia, unspecified Low phosphate levels Disorders of phosphorus metabolism documented in this encounter Advance Directives Latest [...] the patient have Health Care Power of Optical Worker? No Healthcare Agents on File Name Relationship Healthcare Agent Relationshi p Communication Antonio Janett Spouse Health Care Agen t (per Health Care Power of Optical Worker document) Care Teams Medical Field Representative Relationship Specialty Start Date End Date Yulia Stein DO [address] [place] [address] PCP - General Family Medicine 05/15/23 documented as of this encounter
--- OUTSIDE RECORDS SUMMARY | 2023-10-21 00:12 | External Medical Summary ---
Author Name Unknown Address Unknown Organization K01:[facility] [place] [address] [place] [address] Laboratory Report Ordering Provider Test Date Status ODILON LAMAR 10/16/2023 09:01:32 Final Observation Date Value Abnormality Reference (Units ) Status Iron 10/16/2023 09:01:32 42 33-151 (ug/dL) Final Iron-binding capacity 10/16/2023 09:01:32 335 250-425 (ug/dL) Final Transferrin Sat % 10/16/2023 09:01:32 13 Below low normal 15-55 (%) Final Performing Location LABORATORY C - [address] [place] [address]
--- OUTSIDE RECORDS SUMMARY | 2023-10-21 00:12 | External Medical Summary | Summary of Care ---
Author Name Unknown Organization [facility] Address [address] [place] [address] Phone [phone] Care Team Providers Care Roll Hauler Name Role Phone Yulia Stein DO Primary Care Provider Reason for Visit * Reason Comments Infusion Venofer Medication Administration B12 Encounter Details Date Type Department Care Team (Latest Contact Info) Description 10/16/2023 8:30 AM EST Hem/Onc Treatment Hematology/Oncolog y Treatment, [place] [address] [place] [address] Roro, Chair 11 Hem Onc Scenery [address] [place] [address] Iron deficiency anemia due to chronic blood [...] by mouth at bedtime. 0 05/04/2023 Active [place] Carbonate ER 300 MG Oral Tablet Extended Release (Lithobid ER) TAKE ONE TABLET BY MOUTH DAILY AT BEDTIME 90 Tablet 0 11/17/2022 3 Active Additional Information Patient taking differently: 450 mg HS, Reported on 09/04/2023 Nystatin [id number] UNIT/GM External Powder (Nystop)Indications: Skin irritation Apply topically to affected area as needed (skin irritation). Apply up to 2 times a day 60 g 3 06/15/2023 Active Vitron-C 65-125 MG Oral Tablet (Iron-Vitamin C 65-125 mg per tab)Indications:Low iron,Low phosphate levels TAKE 1 TABLET BY MOUTH ONCE DAILY IN THE MORNING 30 Tablet 3 06/23/2023 Active BD Pen Needle Short U/F 31G [...] ON THURSDAY 88 Tablet 2 09/16/2023 Active Hospital, Clinic, or Other Facility Administered [...] by psych monthly Reports she is stable [place] was recently stopped Duloxetine 60mg daily Mirtazapine [...] year ACTIVE CASE MANAGEMENT Kelsi Gordon RN [phone] 12/18/2008 09/16/2010 DIAB RENAL MANIF ADULT 06/21/200806/15 [...] 30 Mcg, IM, 12 yrs and above (Silatronix) 05/15/2023 H1N1 2009 Influenza, IM 12/20/2009 HEP [...] of this encounter Nursing Notes * Jessica Espinoza LPN - 10/16/2023 9:23 AM EST 0855: [...] Team (Late st Contact Info) Description 10/16/2023 2:30 PM EST Home Visit [facility] [address] [place] [address] Sejal Andrade RN [address] [facility] [place] [address] 11/13/2023 9:30 AM EST Hem/Onc Treatment Hematology/Oncology Treatment, [place] [address] [place], [place] [address] Roro, Chair 10 Hem Onc Scenery [address] [place] [address] 12/04/2023 9:20 AM EST Office Visit Family Practice [address], [place] [address] [facility] [phone] Yulia Stein, 293 [place] [address] 12/11/2023 9:30 AM EST Hem/Onc Treatment Hematology/Oncology Treatment, [place] [address] [place] [address] Roro, Chair 10 Hem Onc [facility] [address] [facility] [address] 12/11/2023 2:00 PM EST Nurse Only Ancillary 65 [facility] 293 [place] [address] College, Nurse Annual Wellness Visit [address] [place] [address] 12/30/2023 10:45 AM EST Office Visit Hematology/Oncology [facility] [address] [facility] [address] Viraj Atkins MD [address] [facility] [address] Pending Results Name Type Priority Associated Diagnoses Date /Time FERRITIN Lab STAT Iron deficiency anemia due to chronic blood loss 10/16/2023 9:01 AM EST IRON SCREEN, INCLUDING TIBC Lab STAT Iron deficiency anemia due to chronic blood loss 10/16/2023 9:01 AM EST FOLIC ACID Lab STAT B12 deficiency Iron deficiency anemia due to chronic blood loss 10/16/2023 9:01 AM EST VITAMIN B12 Lab STAT B12 deficiency Iron deficiency anemia due to chronic blood loss 10/16/2023 9:01 AM EST Scheduled Procedures Name Priority Associated Diagnoses Date/Ti [...] D LEVEL ONCE IN A LIFETIME-USE SMARTSET# [id number] Completed 03/28/2014, 09/08/2013 Hepatitis B Completed 09/01/2018, [...] - 10.80 K/uL 10/16/2023 9:09 AM EST [facility] 56-02 Neutrophils % 74.8 40.0 - 75.0 % 10/16/2023 9:09 AM EST [facility] 56-02 Lymphocytes % 14.6(L) 18.0 - 42.0 % 10/16/2023 9:09 AM EST [facility] 56-02 Monocytes % 5.5 1.0 - 11.0 % 10/16/2023 9:09 AM EST [facility] 56-02 Eosinophils % 4.6 0.0 - 6.0 % 10/16/2023 9:09 AM EST [facility] 56-02 Basophils % 0.5 0.0 - 2.0 % 10/16/2023 9:09 AM EST [facility] 56-02 Absolute Neutrophils 3.28 1.80 - 7.70 K/uL 10/16/2023 9:09 AM EST [facility] 56-02 Absolute Lymphocytes 0.64(L) 1.00 - 4.80 K/ul 10/16/2023 9:09 AM [facility] [place] 56-02 Absolute Monocytes 0.24 0.00 - 1.10 K/uL 10/16/2023 9:09 AM [facility] 56-02 Absolute Eosinophils 0.20 0.00 - 0.70 K/uL 10/16/2023 9:09 AM EST [facility] 56-02 Absolute Basophils 0.02 0.00 - 0.20 K/uL 10/16/2023 9:09 AM [facility] [place] 56-02 Blood Venous blood specimen / Unknown Central Line / Unknown 10/16/2023 9:01 AM EST 10/16/2023 9:05 AM EST Viraj Atkins MD LAB BLOOD ORDERABLES [facility] 56- [address] [place] [address] * (ABNORMAL) CBC (10/16/2023 9:01 AM EST) WBC 4.38 4.00 - 10.80 K/uL 10/16/2023 9:09 AM EST [facility] 56- RBC 3.97 3.85 - 5.15 M/uL 10/16/2023 9:09 AM [facility] 56- HGB 10.9(L) 12.0 - 15.3 g/dL 10/16/2023 9:09 AM [facility] 56- HCT 36.2 36.0 - 45.2 % 10/16/2023 9:09 AM [facility] 56- MCV 91.2 81.5 - 97.5 fL 10/16/2023 9:09 AM [facility] 56- MCH 27.5 27.0 - 34.0 pg 10/16/2023 9:09 AM [facility] 56- MCHC 30.1 32.0 - 36.0 g/dL 10/16/2023 9:09 AM [facility] 56- RDW 15.8 11.5 - 15.5 % 10/16/2023 9:09 AM [facility] 56- PLT 170 140 - 400 K/uL 10/16/2023 9:09 AM [facility] 56- MPV 8.6 6.6 - 11.1 fL 10/16/2023 9:09 AM [facility] 56- Blood Venous blood specimen / Unknown Central Line / Unknown 10/16/2023 9:01 AM EST 10/16/2023 9:05 AM EST Viraj Atkins MD LAB BLOOD ORDERABLES [facility] 56 [address] [place] [address] documented in this encounter Visit Diagnoses Diagnosis Iron deficiency anemia due to chronic blood loss- Primary Iron deficiency anemia secondary to blood loss (chronic) B12 deficiency Other B-complex deficiencies Cervical adenocarcinoma (HCC) Malignant neoplasm of cervix uteri, unspecified site Encounter for venous access device care Fitting and adjustment of vascular catheter documented in this encounter Administered Medications Active Administered Medications - up to 3 most recent administrations Medication Order MAR Action Action Date Dose Rate Site diphenhydrAMINE (Benadryl) inj 50 mg 50 mg, IV Push, ONCE PRN Other, Hypersensitivity Reaction, Starting on Thu10/16/23 at 0859, Until 10/17/23 at 0858, For 24 hours EPINEPHrine 1 MG/ML inj 0.3 mg 0.3 mg, Intramuscular, ONCE PRN Other, Hypersensitivity Reaction or Anaphylaxis, Starting on Thu10/16/23 at 0859, Until 10/17/23 at 0858, For 24 hours hEParin 100 UNIT/ML Lock Flush inj 500 Units 500 Units (5 mL), IV Lock, PRN Other, IV Flush, Starting on Thu10/16/23 at 0859, Until 10/17/23 at 0858, For 24 hours, Do not flush if lock, PICC, or central line not in place; IV infusing or unable to flush. hEParin 100 UNIT/ML Lock Flush inj 500 Units 500 Units (5 mL), IV Lock, PRN Other, IV Flush, Starting on Thu10/16/23 at 0900, Until 10/17/23 at 0859, For 24 hours, Do not flush if lock, PICC, or central line not in place; IV infusing or unable to flush. Given 10/16/2023 10:31 AM EST 500 Units Hydrocortisone Sod Suc (PF) (Solu-Cortef) inj 100 mg 100 mg, IV Push, ONCE PRN Other, Hypersensitivity Reaction, Starting on Thu10/16/23 at 0859, Until 10/17/23 at 0858, For 24 hours NSS infusion 500 mL, Intravenous, at 50 mL/hr, CONTINUOUS, Starting on Thu10/16/23 at 1000, Until Thu10/16/23 at 1959 Start Infusion 10/16/2023 8:59 AM EST 500 mL 50 mL/hr oxygen GAS Inhalation, OXYGEN, First dose on Thu10/16/23 at 0930, Until Discontinued, Device/Managed by: Low Flow Device, Goal SPO2 (%): 91-95, Starting Device: Nasal Cannula, Inital Flow Rate (LPM): 2, Lowest Support: Nasal Cannula: Flow 0-6 LPM. Titrate up/down by 1 LPM., Higher Support: Non-Rebreather (NRB) Mask: Minimum of 10 LPM. Titrate to maintain bag inflation., Titration Interval: Q2 minutes and as needed., Notify Provider: For sudden DECREASE in resting SPO2 to less than 85% and when escalating delivery device. sodium chloride 0.9 % flush central line 10 mL 10 mL, IV Push, PRN Other, IV Flush, Starting on Thu10/16/23 at 0859, Until 10/17/23 at 0858, For 24 hours, Do not flush if lock, PICC, or central line not in place; IV infusing or unable to flush. sodium chloride 0.9 % flush/inj 10 mL 10 mL, IV Push, PRN Other, IV Flush, Starting on Thu10/16/23 at 0900, Until 10/17/23 at 0859, For 24 hours, Do not flush if lock, PICC, or central line not in place; IV infusing or unable to flush. Given 10/16/2023 10:32 AM EST 10 mL Inactive Administered Medications - up to 3 most recent administrations Medication Order MAR Action Action Date Dose Rate Site Iron Sucrose (Venofer) 300 mg in NSS 250 mL ivpb 300 mg, IV Piggyback, ONCE, 1 dose, On Thu10/16/23 at 1030, Administer over 90 Minutes Start Infusion 10/16/2023 8:59 AM EST 300 mg 166.67 mL/hr vitamin b-12 (Cyanocobalamin) inj 1,000 mcg 1,000 [...] the patient have Health Care Power of Professional Builder? No Healthcare Agents on File Name Relationship Healthcare Agent Relationshi p Communication Antonio Janett Spouse Health Care Agen t (per Health Care Power of Professional Builder document) Care Teams Roll Hauler Relationship Specialty Start Date End Date Yulia Stein DO [address] [place] [address] PCP - General Family Medicine 05/15/23 documented as of this encounter
[2023-10-21] MEDS: INSULIN ASPART PER UNIT CHARGE SC SCH ×4 (01:05→21:29)
[2023-10-21] MEDS: MELATONIN 3 MG TAB PO SCH ×2 (01:07→21:33)
[2023-10-21] MEDS: LATANOPROST 0.005% OP SOLN 2.5 ML BTL OP SCH ×2 (01:08→22:28)
[2023-10-21] MEDS ORDERED: PANTOprazole 80 MG in DEXTROSE 5% 100 ML IV STA (01:35)
--- NOTE | 2023-10-21 01:43 | Communication Note ---
Date of Service: October 21, 2023 1:30 AM Patient noted to have melanotic stool as per RN. FOBT positive. Patient with abdominal distention and tenderness. CT abdomen pelvis: 1. There are scattered gas fluid levels within nondilated large and small bowel loops suggesting ileus or enteritis. There is mild wall thickening involving the distal sigmoid colon and rectum suggesting colitis and/or proctitis. No pneumoperitoneum or abscess is seen. 2. The urinary bladder is borderline dilated measuring 14.3 cm long axis. If the patient is unable to void, consider urinary retention. 3. The gallbladder is fully distended but nondilated. No calcified gallstones are identified. No pericholecystic inflammation or biliary duct dilation is seen. AP UGIB/LGIB (colitis on CT) Cirrhotic patient IV PPI Ceftriaxone Flagyl GI consult N.p.o. until patient seen by GI in anticipation of endoscopy Patient daughter updated of developments. Patient has had intermittent bleeding episodes at home for some time now as per daughter account.
[2023-10-21 01:52] LABS: Appearance Urine Turbid (Clear); Bacteria Urine Automated Negative (Negative); Bilirubin Urine Negative (Negative); Blood Urine 3+ (Negative); Color Urine Yellow; Glucose Urine UA 3+ (Negative); Ketones Urine Negative (Negative); Leukocyte Esterase Urine 2+ (Negative); Nitrite Urine Negative (Negative); Protein Urine 2+ (Negative); Specific Gravity Urine 1.025 (1.000-1.030); Urobilinogen Urine Negative (Negative); WBC Urine Automated >30 /hpf (0-5)
[2023-10-21] MEDS ORDERED: OPTIRAY 320 500ml IV ONE (01:54)
[2023-10-21 02:02] LABS: RBC Urine Automated >30 /hpf (0-4)
[2023-10-21] MEDS ORDERED: cefTRIAXone SODIUM 2000MG/50ML D5W IV ONE (02:05)
[2023-10-21] MEDS: cefTRIAXone SODIUM 2,000 MG in DEXTROSE 5 % MINI-B 50 ML IV SCH (02:10)
[2023-10-21 02:22] LABS: Basophils # (auto) 0.04 K/uL (0.00-0.20); Basophils % (auto) 0.8 %; Eosinophils % (auto) 3.8 %; Hemoglobin 8.1 g/dl (12.0-16.0); Immature Granulocytes # (auto) 0.05 K/uL (0.01-0.20); Lymphocytes # (auto) 1.26 K/uL (1.20-3.40); Mean Corpuscular Hemoglobin 27.5 pg (25.0-34.0); Mean Corpuscular Volume 91.5 fL (80.0-100.0); Mean Platelet Volume 8.5 fL (9.4-12.4); Monocytes # (auto) 0.33 K/uL (0.11-0.59); Monocytes % (auto) 6.3 %; Neutrophils # (auto) 3.36 K/uL (1.40-6.50); Neutrophils % (auto) 64.1 %; Platelet Count 175 K/uL (130-400); RDW Coefficient of Variation 17.2 % (11.5-14.5); RDW Standard Deviation 55.3 fL (36.4-46.3); Red Blood Count 2.95 M/uL (4.20-5.40); White Blood Count 5.24 K/ul (4.8-10.8)
[2023-10-21 02:44] LABS: BUN Creatinine Ratio 65.6 (10-20); Calcium 8.8 mg/dl (8.6-10.3); Creatinine Clr Calc Pharmacy 63.9 ml/min; Est GFR (African American) 101.3 ml/min; Est GFR (Non-African American) 87.4 ml/min; Potassium 3.6 mmol/L (3.5-5.1)
[2023-10-21 02:48] LABS: INR 1.1 (0.9-1.1); Prothrombin Time 11.5 Seconds (9.0-12.0)
--- NOTE | 2023-10-21 02:58 | CT Scan Report ---
Exam(s): CT ABDOMEN + PELVIS With Contrast IV Amt: 87 ML OPTIRAY 320 EXAM: CT Abdomen and Pelvis With Intravenous Contrast CLINICAL HISTORY: Reason for exam: abd pain, upper GI bleed. TECHNIQUE: Axial computed tomography images of the abdomen and pelvis with intravenous contrast. Automated exposure control was utilized for the study. A dose lowering technique was utilized adhering to the principles of ALARA. CONTRAST: Patient received 87 ML OPTIRAY 320 of IV contrast COMPARISON: September 02, 2023 FINDINGS: Lung bases: Unremarkable. No mass. No consolidation. ABDOMEN: Liver: The liver is enlarged measuring 20 cm craniocaudad. No focal liver lesion is seen. Gallbladder and bile ducts: The gallbladder is fully distended but nondilated. No calcified gallstones are identified. No pericholecystic inflammation or biliary duct dilation is seen. Pancreas: Unremarkable. No mass. No ductal dilation. Spleen: Unremarkable. No splenomegaly. Adrenals: Unremarkable. No mass. Kidneys and ureters: Unremarkable. No solid mass. No hydronephrosis. Stomach and bowel: There are scattered gas fluid levels within nondilated large and small bowel loops suggesting ileus or enteritis. There is mild wall thickening involving the distal sigmoid colon and rectum suggesting colitis and/or proctitis. No pneumoperitoneum or abscess is seen. PELVIS: Appendix: No findings to suggest acute appendicitis. Bladder: The urinary bladder is borderline dilated measuring 14.3 cm long axis. If the patient is unable to void, consider urinary retention. Reproductive: Unremarkable as visualized. ABDOMEN and PELVIS: Intraperitoneal space: See above. 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 There may also be an insufficiency fracture of the left sacral wing. There is metallic artifact from a left femur kody. Mild to moderate degenerative changes in the spine including chronic appearing compression fractures at L3, L1, T10, and T11. No acute fracture or subluxation is seen. Soft tissues: Unremarkable. Vasculature: The abdominal aorta is heavily calcified but nondilated. Lymph nodes: Unremarkable. No enlarged lymph nodes. IMPRESSION: 1. There are scattered gas fluid levels within nondilated large and small bowel loops suggesting ileus or enteritis. There is mild wall thickening involving the distal sigmoid colon and rectum suggesting colitis and/or proctitis. No pneumoperitoneum or abscess is seen. 2. The urinary bladder is borderline dilated measuring 14.3 cm long axis. If the patient is unable to void, consider urinary retention. 3. The gallbladder is fully distended but nondilated. No calcified gallstones are identified. No pericholecystic inflammation or biliary duct dilation is seen. Electronically signed by: Camron Holley MD 10/21/23 02:57 AM
[2023-10-21] MEDS ORDERED: NSS + 20MEQ KCL 20 MEQ/1,000 ML BAG IV ONE (04:09)
[2023-10-21] MEDS: metroNIDAZOLE 500 MG/100 ML BAG IV SCH ×3 (04:53→22:28)
[2023-10-21] MEDS: LEVOTHYROXINE SODIUM 75 MCG TABLET PO SCH (05:58)
[2023-10-21] MEDS: PANTOprazole 40 MG in DEXTROSE 5% MINI-B 100 ML IV SCH ×4 (05:58→20:26)
[2023-10-21] MEDS ORDERED: cloNIDine HCL 0.1 MG TAB PO ONE (06:48)
--- NOTE | 2023-10-21 07:37 | XRay Report ---
XR chest 1V portable HISTORY: hyponatremia COMPARISON: Chest 04/04/2023. FINDINGS: No pneumothorax. No pleural effusions. There is perihilar interstitial/vascular thickening suggestive of mild congestive change. As a linear scarlike density within the left lung apex. The hea rt remains mildly enlarged. There are old, healed rib fractures and an old left clavicle fracture. Po stoperative changes within the right humeral head. IMPRESSION: Cardiomegaly and mild central pulmonary vascular congestion without overt edema. This has slightly pr ogressed. ACT 112: Negative or not required by law. Electronically signed by: Fausto Angel M.D. 10/21/2023 7:36 AM
[2023-10-21 08:21] LABS: Hematocrit (blood only) 30.1 % (37.0-47.0); Hemoglobin 9.3 g/dl (12.0-16.0)
[2023-10-21] MEDS: THIAMINE HCL 100 MG TAB PO SCH (08:57)
[2023-10-21] MEDS: ARIPiprazole 5 MG TAB PO SCH (08:57)
[2023-10-21] MEDS: EZETIMIBE 10 MG TAB PO SCH (08:57)
[2023-10-21] MEDS: MULTIVITAMIN TAB PO SCH (08:57)
[2023-10-21] MEDS: DULoxetine HCL 60 MG CAP PO SCH (08:57)
[2023-10-21] MEDS ORDERED: OXYBUTYNIN CHLORIDE XL 5 MG TABCR PO SCH (09:00)
[2023-10-21] MEDS: GABAPENTIN 100 MG CAP PO SCH ×2 (10:20→21:29)
[2023-10-21] MEDS: LOSARTAN POTASSIUM 50 MG TAB PO SCH (10:28)
[2023-10-21] MEDS ORDERED: INSULIN ASPART PER UNIT CHARGE SC SCH (12:00)
--- NOTE | 2023-10-21 13:28 | Gastrointestinal Consultation ---
Date of Consultation October 21, 2023 Assessment & Plan (1) Cirrhosis: (2) Weakness: (3) Fecal occult blood test positive: Pt is a 78 yo female w cirrhosis (MELD 7), portal hypertensive gastropathy wo varices, cervical ca s/p chemoradiation, radiation proctitis, who is evaluated for ? melena, rectal bleeding. Blood ct stable, CT likely with portal colopathy. - Defer endoscopic evals given stable blood ct and daughter's wish to defer - Monitor blood ct and transfuse prn for Hgb goal >8 - May consider trial of Carafate enema for suspected radiation proctitis for cause of her rectal bleeding - 2g Na, diabetic diet - Pls recall GI prn Supervising Physician Co-Signing Physician Notes Pt with chronic rectal bleeding due to XRt proctitis refractory to endoscopic therapy including RFA managed wiht IV Iron last scoped in Dec now with rectal bleeding and hgb that is mildly lower then baseline. Defer endoscopy, pts daughter and patient agree. Please reconsult as needed. History of Present Illness Reason for Consultation: Colitis, GI bleed Requesting Physician: Dr. Noemi Smallwood Attending Physician: Dr. Lito Dixon History of Present Illness Pt is a 78 yo female w PMHx of DM II, HTN, seizure, SAH, COPD, hypothyroidism, cervical ca s/p chemoradiation, radiation proctitis, chronic anemia who was brought in by family due to weakness and fatigue in the past week. She was treated for UTI based on OP UA with Keflex. Her who is her primary caregiver, is also currently admitted in this hospital anticipating DC on palliative care. Thus pt needs buttermaker placement. Pt is a poor historian and oriented mostly to self and place. She denies CP, SOB, abd pain, n/v. Admits she's been having loose stools. She is c/o LLQ abd tenderness on palpation. Overnight, she was passing dark stools concerning for melena, FOBT was positive. Her blood ct is stable w Hgb of [address] abd/pelvis w IV contrast showed signs of possible ileus vs enteritis, thickening in distal sigmoid colon + rectum suggesting colitis/proctitis. No pneumoperitoneum or abscess noted. We spoke to pt's daughter (Bessie) who reports that pt's dark stools or rectal bleeding had been intermittent - no change in amount or frequency. Pt has been receiving iron infusion, last dose few days ago. She doesn't feel that pt should undergo endoscopies at this time. EGD/Colonoscopy 12/2022: mild portal HTN gastropathy, no varices; non-bleeding angioectasias. Allergies Allergy/AdvReac Type Severity Reaction Status Date / Time divalproex sodium Allergy Severe weakness, Verified 10/20/23 20:36 [From Depakote] ataxia, confusion lidocaine Allergy Severe edema face Verified 10/20/23 20:36 and lips aspirin Allergy Intermediate INTESTINAL Verified 10/20/23 20:36 BLEEDING AND HIVES magnesium citrate Allergy Intermediate HIVES AND Verified 10/20/23 20:36 SWELLING prednisone Allergy Intermediate HIVES; Verified 10/20/23 20:36 TREMORS simethicone Allergy Intermediate Hives/swell Verified 10/20/23 20:36 ing rosiglitazone AdvReac Severe Anemia/swelling/seizure/memory Verified 10/20/23 20:36 loss valproic acid AdvReac Severe weakness/at Verified 10/20/23 20:36 axia/confus ion citalopram AdvReac Intermediate tremors Verified 10/20/23 20:36 clonazepam AdvReac Intermediate Agitated Verified 10/20/23 20:36 metoclopramide AdvReac Intermediate Leg pains Verified 10/20/23 20:36 onion AdvReac Intermediate nausea/vomi Verified 10/20/23 20:36 ting simvastatin AdvReac Intermediate Leg pains Verified 10/20/23 20:36 sulfamethoxazole AdvReac Intermediate Nausea/vomi Verified 10/20/23 20:36 ting trimethoprim AdvReac Intermediate Nausea/vomi Verified 10/20/23 20:36 ting Home Medications Medication Instructions Recorded Confirmed Type levothyroxine 25 mcg tablet See Rx Instructions .Route .COMPLEX 12/07/18 10/20/23 History (Synthroid) loperamide 2 mg tablet 2 mg PO QID PRN Diarrhea 12/07/18 10/20/23 History metformin 750 mg tablet,extended 1,500 mg PO QAM 12/07/18 10/20/23 History release 24 hr mirtazapine 30 mg tablet (Remeron) 30 mg PO HS 12/07/18 10/20/23 History thiamine HCl (vitamin B1) 100 mg 100 mg PO QAM 12/07/18 10/20/23 History tablet (Vitamin B-1) iron,carbonyl 65 mg-vitamin C 125 1 tab PO QAM 08/30/19 10/20/23 History mg tablet,delayed release (Vitron-C) albuterol sulfate 90 mcg/actuation 1 puff inhalation Q6 PRN Wheezing 08/31/19 10/20/23 History aerosol inhaler gabapentin 100 mg capsule See Rx Instructions .Route .COMPLEX 09/02/21 10/20/23 History insulin glargine 100 unit/mL (3 54 unit subcut HS 09/02/21 10/20/23 History mL) subcutaneous pen (Lantus Solostar U-100 Insulin) acetaminophen 325 mg tablet 325 mg PO Q6 PRN Pain 01/12/23 10/20/23 History (Tylenol) candesartan 16 mg tablet 16 mg PO QAM 01/12/23 10/20/23 History cyanocobalamin (vitamin B-12) 1,000 mcg IM MONTHLY 01/12/23 10/20/23 History 1,000 mcg/mL injection solution ezetimibe 10 mg tablet (Zetia) 10 mg PO QAM 01/12/23 10/20/23 History latanoprost (PF) 0.005 % eye drops 1 drp ophthalmic (eye) HS 01/12/23 10/20/23 History lithium carbonate 300 mg tablet 300 mg PO HS 01/12/23 10/20/23 History aripiprazole 5 mg tablet 5 mg PO QAM 03/31/23 10/20/23 History duloxetine 60 mg capsule,delayed 60 mg PO QAM 03/31/23 10/20/23 History release melatonin 5 mg tablet 5 mg PO HS 08/27/23 10/20/23 History phenazopyridine 200 mg tablet 200 mg PO Q8H PRN pain #10 tabs 09/03/23 10/20/23 Rx (Pyridium) nystatin 100,000 unit/gram topical 1 applic topical DAILY #30 grams 10/07/23 10/20/23 Rx powder cephalexin 500 mg capsule 500 mg PO BID 5 days #10 caps 10/19/23 10/20/23 Rx multivitamin 1 tab PO QAM 10/20/23 10/20/23 History oxybutynin chloride 10 mg PO HS 11/22/23 11/22/23 History Patient History Medical History History of cervical cancer 2017- s/p chemo and XRT Port-A-Cath in place unsure of type Alcoholic cirrhosis quit drinking in 2017 Anxiety disorder PTSD (post-traumatic stress disorder) History of COVID-19 tested positive on a home test ~Beginning of September 2022. patient unsure of exact date. reports symptoms included: sore throat, cough and headache. resolved currently. Hypothyroidism History of GI bleed Poor historian Memory changes r/t fall "long time ago,I don't know when it was". Alert and oriented, poor historian. Hypertension Asthma RARE RES. INH USE Mood disorder [place] Per PCP records 04/2023- "Pt has remote history of seizure d/o with history of cavernosum. She has been on Keppra without issue. " Seizure disorder grand mal > last one > "years ago" Dyslipidemia Bipolar 1 disorder (04/07/14) Ana (04/07/14) HX OF Intracranial hemorrhage resolved> was from fall (2013) Anemia DM (diabetes mellitus) IDDM Surgical History History of bilateral tubal ligation History of repair of rotator cuff RCR History of esophagogastroduodenoscopy (EGD) History of appendectomy History of open reduction and internal fixation (ORIF) procedure Left Femur ORIF with kody. History of cataract surgery bilateral History of colonoscopy Hx of cervical spine surgery pt denies -- states she hurt her neck during a fall "about 5 years ago". ROM wnl. 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 Required: No Beliefs That Will Affect Care: None Current Living Situation: Spouse Feels Safe at Home: Yes Assistive Devices: Walker Review of Systems Review of Systems: All systems reviewed & are unremarkable except as noted in HPI & below Physical Exam Constitutional: WD/WN, vitals as above well groomed, cooperative and comfortable Eyes: PERRL, conjunctivae normal, anicteric sclerae ENMT: external ear and nose normal, oropharynx normal Respiratory: No respiratory distress noted, clear upper lobes, diminished on bases Cardiovascular: RRR, no murmur, no edema Gastrointestinal (Abdomen): Soft, BS +, TTP LLQ Skin: no rashes, warm and dry no jaundice Neurologic: Motor/Sensory: + asterixis (mild ) Psychiatric: oriented to self and place mostly Lymphatic: no lymphedema Results & Data Vital Signs (Past 12 Hours) Vital Signs Pulse Pulse Resp BP BP Pulse Ox Pulse Ox 10/21/23 13:00 84 22 94 10/21/23 12:44 119/79 97 10/21/23 12:44 87 20 10/21/23 12:30 87 22 10/21/23 12:00 84 22 10/21/23 11:50 86 19 10/21/23 08:06 102 H 10/21/23 07:30 96 H 24 93 10/21/23 07:00 100 H 24 92 10/21/23 06:30 104 H 16 96 10/21/23 06:04 168/76 H 10/21/23 06:00 95 H 12 96 10/21/23 06:00 168/76 H 10/21/23 05:42 97 H 14 172/78 H 95 10/21/23 04:54 93 H 15 169/76 H 96 10/21/23 02:26 95 10/21/23 02:17 80 17 142/68 H 96 O2 Del Method O2 Del Method 10/21/23 13:00 10/21/23 12:44 10/21/23 12:44 10/21/23 12:30 10/21/23 12:00 10/21/23 11:50 10/21/23 08:06 10/21/23 07:30 10/21/23 07:00 10/21/23 06:30 10/21/23 06:04 10/21/23 06:00 10/21/23 06:00 10/21/23 05:42 Room Air 10/21/23 04:54 Room Air 10/21/23 02:26 Room Air 10/21/23 02:17 Room Air
[2023-10-21 14:39] LABS: Hematocrit (blood only) 29.5 % (37.0-47.0); Hemoglobin 8.7 g/dl (12.0-16.0)
--- NOTE | 2023-10-21 14:58 | Hospitalist Progress Note ---
Date of Service October 21, 2023 Assessment & Plan (1) Hypotension: Plan: Ms. Karla Rowland is a 78 year old woman with history of cirrhosis (undergoing eval), cervical adenocarcinoma s/p chemoradiation c/b radiation proctitis and cystitis who is admitted due to diarrhea and weakness. Patient progressive becoming more weak. Patient was noted to have signs of colitis on imaging, consistent with history of radiation proctitis. Stool PCR negative for C. Diff. Family concerned about patient's ability to care for self, as well as partner's ability to care for patient as he is currently admitted and possibly imminent. Blood pressures have improved, hemoglobin is stable. Plan to trial HC suppositiory for colitis and pursue symptom management while seeking placement options. #ambulatory dysfunction -PT/OT SNF, ? termite control servicer placement #Diarrhea, +FOBT #Recurrent GIB #Prior Radiation Proctitis Prior history of gastric ulcer, AVMS, colonic angiectasia, hemorrhoids, diverticulosis, history radiation proctitis as per records Deferred endoscopic eval at this time -Trial hydrocortisone suppository -Follow up infectious stool PCR -Empiric CTX/Flagyl while undergoing infectious work up, discontinue/deescalate as able #Cirrhosis, compensated - History of decompensation: none; autoimmune workup negative - MELD-Na: 12 on admission - Last EGD 2022: mild portal gastropathy, no varices - Last C-[facility], colonoscopy, non-bleeding colonic angioectasis, limited sigmois diverticulosis, / no specimens collected 12/2022 - PSE: No evidence of HE on exam, ammonia WNL - Ascites: none on CT imaging - SBP: No evidence of SBP/ascites on imaging - EV: No evidence of UGIB presently, close monitoring - HRS: Cr at baseline - Daily CMP + INR to calculate MELD; low Na diet - GI on consult #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 -CTM #Chronic Iron Deficiency Anemia -Follows Dr. Atkins, receives IV Iron transfusions -Transfuse <7.0 or symptomatic #Diabetes Type II -A1C 8.1% on admission -Lantus 50U, plus sliding scale -Glycemic consult #Urinary incontinence -Continue oxybutynin 10mg #Epilepsy, tonic clonic #Bipolar disorder -Continue Gabapentin 100/200mg -Continue [place] 300mg -Continue duloxetine 60mg and aripiprazole 5mg -Continue Mirtazipine 30mg #Hypothyroidism -Continue levothyroxine 75mcg PT OT [facility] Social service re: discharge planning, placement DVT prophylaxis. SCDs RE recurrent GI bleed Full code Patient's family requesting updates from providers. Ms. Bessie Ramsey (daughter), contact #[phone]. Admission and Anticipated Discharge Date Admission Date: October 21, 2023 Subjective Patient reports feeling frustrated with diarrhea at this time. Denies any other new symptoms. Reports appetite at baseline. Daughter at bedside, medication reconciliation reviewed with her as she is "advocate" for patient---discussed abx and insulin changes Answered all questions at bedside--no reports of nausea, vomiting, confusion out of baseline, or other acute concerns Review of Systems Review of Systems: All systems reviewed & are unremarkable except as noted in Subjective Physical Exam Constitutional: WD/WN, vitals as above Respiratory: normal respiratory effort, lungs clear to auscultation Cardiovascular: RRR, no murmur, no edema Gastrointestinal (Abdomen): soft, NTND, some suprapubic tenderness with deep palpation, Skin: no rashes, warm and dry Results & Data Results & Data Vital Signs (Past 12 Hours) Vital Signs Pulse Pulse Resp BP BP Pulse Ox O2 Del Method 10/21/23 13:00 84 22 94 10/21/23 12:44 119/79 97 10/21/23 12:44 87 20 10/21/23 12:30 87 22 10/21/23 12:00 84 22 10/21/23 11:50 86 19 10/21/23 08:06 102 H 10/21/23 07:30 96 H 24 93 10/21/23 07:00 100 H 24 92 10/21/23 06:30 104 H 16 96 10/21/23 06:04 168/76 H 10/21/23 06:00 95 H 12 96 10/21/23 06:00 168/76 H 10/21/23 05:42 97 H 14 172/78 H 95 Room Air 10/21/23 04:54 93 H 15 169/76 H 96 Room Air Laboratory Results Short CBC 10/20/23 10/21/23 10/21/23 Range/Units 16:22 02:05 08:04 WBC 6.43 5.24 (4.8-10.8) K/ul Hgb 9.4 L 8.1 L 9.3 L (12.0-16.0) g/dl Hct 31.7 L 27.0 L 30.1 L (37.0-47.0) % Plt Count 235 175 (130-400) K/uL 10/21/23 Range/Units 14:19 WBC (4.8-10.8) K/ul Hgb 8.7 L (12.0-16.0) g/dl Hct 29.5 L (37.0-47.0) % Plt Count (130-400) K/uL BMP 10/20/23 10/21/23 10/21/23 16:22 00:47 02:05 Sodium 131 L 132 L 130 L Potassium 4.5 3.6 Chloride 102 102 Carbon Dioxide 21 22 BUN 39 H 40 H Creatinine 0.59 L 0.61 Glucose 271 H 284 H Calcium 9.9 8.8 10/21/23 08:04 Sodium 134 L Potassium Chloride Carbon Dioxide BUN Creatinine Glucose Calcium Liver Function 10/20/23 Range/Units 16:22 Total Bilirubin 0.3 (0.2-1.0) mg/dl AST 30 (13-39) U/L ALT 24 (7-52) U/L Alkaline Phosphatase 142 H (34-104) U/L Albumin 3.8 (3.4-5.0) gm/dl Urine 10/21/23 Range/Units 01:29 Urine Color Yellow Urine Appearance Turbid A (Clear) Urine pH 6.0 (4.5-7.5) Ur Specific [place] 1.025 (1.000-1.030) Urine Protein 2+ H (Negative) Urine Glucose (UA) 3+ H (Negative) Medications Administered Home Medications Medication Instructions Recorded Confirmed Last Taken levothyroxine 25 mcg tablet See Rx Instructions .Route .COMPLEX 12/07/18 10/20/23 10/19/23 (Synthroid) loperamide 2 mg tablet 2 mg PO QID PRN Diarrhea 12/07/18 10/20/23 Unknown metformin 750 mg tablet,extended 1,500 mg PO QAM 12/07/18 10/20/23 10/19/23 release 24 hr mirtazapine 30 mg tablet (Remeron) 30 mg PO HS 12/07/18 10/20/23 10/19/23 thiamine HCl (vitamin B1) 100 mg 100 mg PO QAM 12/07/18 10/20/23 10/20/23 tablet (Vitamin B-1) iron,carbonyl 65 mg-vitamin C 125 1 tab PO QAM 08/30/19 10/20/23 10/20/23 mg tablet,delayed release (Vitron-C) albuterol sulfate 90 mcg/actuation 1 puff inhalation Q6 PRN Wheezing 08/31/19 10/20/23 10/18/23 aerosol inhaler gabapentin 100 mg capsule See Rx Instructions .Route .COMPLEX 09/02/21 10/20/23 10/19/23 insulin glargine 100 unit/mL (3 54 unit subcut HS 09/02/21 10/20/23 10/19/23 mL) subcutaneous pen (Lantus Solostar U-100 Insulin) acetaminophen 325 mg tablet 325 mg PO Q6 PRN Pain 01/12/23 10/20/23 10/18/23 (Tylenol) candesartan 16 mg tablet 16 mg PO QAM 01/12/23 10/20/23 10/20/23 cyanocobalamin (vitamin B-12) 1,000 mcg IM MONTHLY 01/12/23 10/20/23 10/06/23 1,000 mcg/mL injection solution ezetimibe 10 mg tablet (Zetia) 10 mg PO QAM 01/12/23 10/20/23 10/20/23 latanoprost (PF) 0.005 % eye drops 1 drp ophthalmic (eye) HS 01/12/23 10/20/23 10/19/23 lithium carbonate 300 mg tablet 300 mg PO HS 01/12/23 10/20/23 10/19/23 aripiprazole 5 mg tablet 5 mg PO QAM 03/31/23 10/20/23 10/20/23 duloxetine 60 mg capsule,delayed 60 mg PO QAM 03/31/23 10/20/23 10/20/23 release melatonin 5 mg tablet 5 mg PO HS 08/27/23 10/20/23 10/19/23 phenazopyridine 200 mg tablet 200 mg PO Q8H PRN pain #10 tabs 09/03/23 10/20/23 10/19/23 (Pyridium) nystatin 100,000 unit/gram topical 1 applic topical DAILY #30 grams 10/07/23 10/20/23 Unknown powder cephalexin 500 mg capsule 500 mg PO BID 5 days #10 caps 10/19/23 10/20/23 10/20/23 multivitamin 1 tab PO QAM 10/20/23 10/20/23 10/19/23 oxybutynin chloride 10 mg PO HS 10/21/23 10/21/23 Unknown Active Medications Generic Name Dose Route Start Last Admin Trade Name Freq PRN Reason Stop Dose Admin Aripiprazole 5 mg 10/21/23 09:00 10/21/23 08:57 Aripiprazole 5 Mg Tab PO 11/20/23 08:59 5 mg QAM VALERIE Administration Duloxetine HCl 60 mg 10/21/23 09:00 10/21/23 08:57 Duloxetine Hcl 60 Mg Cap PO 11/20/23 08:59 60 mg QAM VALERIE Administration Ezetimibe 10 mg 10/21/23 09:00 10/21/23 08:57 Ezetimibe 10 Mg Tab PO 11/20/23 08:59 10 mg QAM VALERIE Administration Gabapentin 100 mg 10/21/23 09:00 10/21/23 10:20 Gabapentin 100 Mg Cap PO 11/20/23 08:59 100 mg QAM VALERIE Administration Ceftriaxone Sodium 2,000 mg/ 50 mls @ 100 mls/hr 10/21/23 02:00 10/21/23 02:46 Dextrose IV 10/31/23 01:59 Infused Q24H VALERIE Infusion Protocol Pantoprazole Sodium 40 mg/ 100 mls @ 20 mls/hr 10/21/23 04:00 10/21/23 14:14 Dextrose IV 11/20/23 03:59 Infused Q5H VALERIE Infusion 8 MG/HR Metronidazole 500 mg in 100 mls @ 100 mls/hr 10/21/23 04:00 10/21/23 14:33 Flagyl IV 10/31/23 03:59 Infused Q8H VALERIE Infusion Protocol Potassium Chloride/Sodium Chloride 20 meq in 1,000 mls @ 60 mls/hr 10/21/23 04:09 10/21/23 05:58 Normal Saline W/20 Meq Kcl IV 10/21/23 20:48 60 mls/hr .[id number] ONE Administration Protocol Latanoprost 1 drops 10/20/23 21:00 10/21/23 01:08 Latanoprost 0.005% Op Soln 2.5 Ml Btl OP 11/19/23 20:59 1 drops HS VALERIE Administration Levothyroxine Sodium 75 mcg 10/21/23 06:30 10/21/23 05:58 Levothyroxine Sodium 75 Mcg Tablet PO 11/20/23 06:29 75 mcg [id number] VALERIE Administration Losartan Potassium 50 mg 10/21/23 09:00 10/21/23 10:28 Losartan Potassium 50 Mg Tab PO 11/20/23 08:59 50 mg QAM VALERIE Administration Protocol Melatonin 4.5 mg 10/20/23 21:00 10/21/23 01:07 Melatonin 3 Mg Tab PO 11/19/23 20:59 4.5 mg HS VALERIE Administration Multivitamins 1 tab 10/21/23 09:00 10/21/23 08:57 Multivitamin Tab PO 11/20/23 08:59 1 tab QAM VALERIE Administration Thiamine HCl 100 mg 10/21/23 09:00 10/21/23 08:57 Thiamine Hcl 100 Mg Tab PO 11/20/23 08:59 100 mg QAM VALERIE Administration (1) Hypotension Hypotension type: unspecified hypotension type Qualified Code(s): I95.9 - Hypotension, unspecified
[2023-10-21 17:06] LABS: Adenovirus F 40/41 PCR Not Detected (NotDetected); Astrovirus PCR Not Detected (NotDetected); Campylobacter PCR Not Detected (NotDetected); Cryptosporidium PCR Not Detected (NotDetected); Cyclospora cayetanensis PCR Not Detected (NotDetected); Entamoeba histolytica PCR Not Detected (NotDetected); Enteroaggregative E.coli(EAEC) Not Detected (NotDetected); Enteropathogenic E.coli (EPEC) Not Detected (NotDetected); Enterotoxigenic E.coli (ETEC) Not Detected (NotDetected); Giardia lamblia PCR Not Detected (NotDetected); Norovirus GI/GII PCR Not Detected (NotDetected); Plesiomonas shigelloides PCR Not Detected (NotDetected); Rotavirus A PCR Not Detected (NotDetected); Salmonella PCR Not Detected (NotDetected); Sapovirus PCR Not Detected (NotDetected); Shiga-like Toxin E.coli (STEC) Not Detected (NotDetected); Shigella/Enteroinvasive E.coli Not Detected (NotDetected); Vibrio cholerae PCR Not Detected (NotDetected); Vibrio species PCR Not Detected (NotDetected); Yersinia enterocolitica PCR Not Detected (NotDetected)
[2023-10-21] MEDS: HYDROCORTISONE ACETATE 25 MG SUPP PR SCH ×3 (17:39→21:37)
[2023-10-21] MEDS: LITHIUM CARBONATE 300 MG TAB PO SCH (21:30)
[2023-10-21] MEDS: MIRTAZAPINE TAB 15 MG TAB PO SCH (21:31)
[2023-10-22] MEDS: cefTRIAXone SODIUM 2,000 MG in DEXTROSE 5 % MINI-B 50 ML IV SCH (02:19)
[2023-10-22] MEDS: PANTOprazole 40 MG in DEXTROSE 5% MINI-B 100 ML IV SCH ×5 (02:49→21:06)
[2023-10-22] MEDS: ACETAMINOPHEN 500 MG TAB PO PRN ×2 (04:18→15:26)
[2023-10-22] MEDS: metroNIDAZOLE 500 MG/100 ML BAG IV SCH ×3 (04:20→20:24)
[2023-10-22] MEDS ORDERED: ACETAMINOPHEN W/CODEINE #3 1 TAB PO ONE (05:05)
[2023-10-22] MEDS: LEVOTHYROXINE SODIUM 75 MCG TABLET PO SCH (05:46)
[2023-10-22 07:15] LABS: Hematocrit (blood only) 32.1 % (37.0-47.0); Hemoglobin 9.4 g/dl (12.0-16.0); Mean Corpuscular Hemoglobin 27.2 pg (25.0-34.0); Mean Corpuscular Hgb Conc 29.3 g/dL (32.0-36.0); Mean Corpuscular Volume 92.8 fL (80.0-100.0); Mean Platelet Volume 8.6 fL (9.4-12.4); Platelet Count 236 K/uL (130-400); RDW Coefficient of Variation 17.5 % (11.5-14.5); RDW Standard Deviation 57.9 fL (36.4-46.3); Red Blood Count 3.46 M/uL (4.20-5.40); White Blood Count 8.21 K/ul (4.8-10.8)
[2023-10-22 07:39] LABS: Prothrombin Time 11.4 Seconds (9.0-12.0)
[2023-10-22 08:00] LABS: Albumin Globulin Ratio 1.1 (0.9-2); Albumin Level 3.6 gm/dl (3.4-5.0); Bilirubin,Total 0.4 mg/dl (0.2-1.0); Calcium 9.2 mg/dl (8.6-10.3); Creatinine Clr Calc Pharmacy 81.1 ml/min; Est GFR (African American) 106.1 ml/min; Est GFR (Non-African American) 91.6 ml/min; Globulin 3.3 gm/dl (2.5-4.0); Magnesium 1.7 mg/dl (1.7-2.4); Phosphorus 3.2 mg/dl (2.5-4.9); Total Protein 6.9 gm/dl (6.0-8.3)
--- NOTE | 2023-10-22 08:15 | Hospitalist Progress Note ---
Date of Service October 22, 2023 Assessment & Plan (1) Hypotension: Plan: Ms. Karla Rowland is a 78 year old woman with history of cirrhosis (undergoing eval), cervical adenocarcinoma s/p chemoradiation c/b radiation proctitis and cystitis who is admitted due to diarrhea and weakness. Patient progressive becoming more weak. Patient was noted to have signs of colitis on imaging, consistent with history of radiation proctitis. Stool PCR negative for C. Diff. Family concerned about patient's ability to care for self, as well as partner's ability to care for patient as he is currently admitted and possibly imminent. Blood pressures have improved, hemoglobin is stable. Plan to trial HC suppositiory for colitis and pursue symptom management while seeking placement options. #ambulatory dysfunction -PT/OT SNF, ? surgical sales representative placement #Diarrhea, +FOBT #Recurrent GIB #Prior Radiation Proctitis Prior history of gastric ulcer, AVMS, colonic angiectasia, hemorrhoids, diverticulosis, history radiation proctitis as per records Deferred endoscopic eval at this time -Trial hydrocortisone suppository 50mg BID -Follow up infectious stool PCR:negative -Empiric CTX/Flagyl while undergoing infectious work up, discontinue/deescalate as able -Dicyclomine TID to aid with diarrhea -Trial mesalamine for antiinflammatory combo with HC #Cirrhosis, compensated - History of decompensation: none; autoimmune workup negative - MELD-Na: 12 on admission--> 11, stable no further need to trend MELD at this time - Last EGD 2022: mild portal gastropathy, no varices - Last C-Scope [facility], colonoscopy, non-bleeding colonic angioectasis, limited sigmois diverticulosis, / no specimens collected 12/2022 - PSE: No evidence of HE on exam, ammonia WNL - Ascites: none on CT imaging - SBP: No evidence of SBP/ascites on imaging - EV: No evidence of UGIB presently, close monitoring - HRS: Cr at baseline - low Na diet - GI on consult #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 -CTM #Chronic Iron Deficiency Anemia -Follows Dr. Atkins, receives IV Iron transfusions -Transfuse <7.0 or symptomatic #Diabetes Type II -A1C 8.1% on admission -Lantus 50U, plus sliding scale -Glycemic consult #Urinary incontinence -Continue oxybutynin 10mg #Epilepsy, tonic clonic #Bipolar disorder -Continue Gabapentin 100/200mg -Continue Minto 300mg -Continue duloxetine 60mg and aripiprazole 5mg -Continue Mirtazipine 30mg #Hypothyroidism -Continue levothyroxine 75mcg PT OT eval Social service re: discharge planning, placement DVT prophylaxis. SCDs RE recurrent GI bleed Full code Patient's family requesting updates from providers. Ms. Bessie Ramsey (daughter), contact #[phone]. Admission and Anticipated Discharge Date Admission Date: October 21, 2023 Subjective Patient reports abdominal cramping at this time Discussed importance of trialing the HC suppository Notes multiple episodes of diarrhea and discomfort, denies nausea or upset stomach Review of Systems Review of Systems: All systems reviewed & are unremarkable except as noted in Subjective Physical Exam Constitutional: WD/WN, vitals as above Respiratory: normal respiratory effort, lungs clear to auscultation Cardiovascular: RRR, no murmur, no edema Skin: no rashes, warm and dry Results & Data Results & Data Vital Signs (Past 12 Hours) Vital Signs Temp Pulse Pulse Resp BP Pulse Ox O2 Del Method 10/22/23 07:34 37.1 C 80 16 133/73 96 Room Air 10/22/23 07:30 75 10/22/23 02:19 37 C 73 18 92/54 L 96 Room Air 10/22/23 00:50 71 10/21/23 23:10 Room Air 10/21/23 22:13 36.8 C 74 16 107/61 94 Room Air Laboratory Results Short CBC 10/21/23 10/22/23 Range/Units 14:19 06:44 WBC 8.21 (4.8-10.8) K/ul Hgb 8.7 L 9.4 L (12.0-16.0) g/dl Hct 29.5 L 32.1 L (37.0-47.0) % Plt Count 236 (130-400) K/uL BMP 10/22/23 06:44 Sodium 135 L Potassium 4.0 Chloride 108 H Carbon Dioxide 19 L BUN 18 D Creatinine 0.53 L Glucose 201 H Calcium 9.2 Liver Function 10/22/23 Range/Units 06:44 Total Bilirubin 0.4 (0.2-1.0) mg/dl AST 19 (13-39) U/L ALT 18 (7-52) U/L Alkaline Phosphatase 109 H (34-104) U/L Albumin 3.6 (3.4-5.0) gm/dl Medications Administered Home Medications Medication Instructions Recorded Confirmed Last Taken levothyroxine 25 mcg tablet See Rx Instructions .Route .COMPLEX 12/07/18 10/20/23 10/19/23 (Synthroid) loperamide 2 mg tablet 2 mg PO QID PRN Diarrhea 12/07/18 10/20/23 Unknown metformin 750 mg tablet,extended 1,500 mg PO QAM 12/07/18 10/20/23 10/19/23 release 24 hr mirtazapine 30 mg tablet (Remeron) 30 mg PO HS 12/07/18 10/20/23 10/19/23 thiamine HCl (vitamin B1) 100 mg 100 mg PO QAM 12/07/18 10/20/23 10/20/23 tablet (Vitamin B-1) iron,carbonyl 65 mg-vitamin C 125 1 tab PO QAM 08/30/19 10/20/23 10/20/23 mg tablet,delayed release (Vitron-C) albuterol sulfate 90 mcg/actuation 1 puff inhalation Q6 PRN Wheezing 08/31/19 10/20/23 10/18/23 aerosol inhaler gabapentin 100 mg capsule See Rx Instructions .Route .COMPLEX 09/02/21 10/20/23 10/19/23 insulin glargine 100 unit/mL (3 54 unit subcut HS 09/02/21 10/20/23 10/19/23 mL) subcutaneous pen (Lantus Solostar U-100 Insulin) acetaminophen 325 mg tablet 325 mg PO Q6 PRN Pain 01/12/23 10/20/23 10/18/23 (Tylenol) candesartan 16 mg tablet 16 mg PO QAM 01/12/23 10/20/23 10/20/23 cyanocobalamin (vitamin B-12) 1,000 mcg IM MONTHLY 01/12/23 10/20/23 10/06/23 1,000 mcg/mL injection solution ezetimibe 10 mg tablet (Zetia) 10 mg PO QAM 01/12/23 10/20/23 10/20/23 latanoprost (PF) 0.005 % eye drops 1 drp ophthalmic (eye) HS 01/12/23 10/20/23 10/19/23 lithium carbonate 300 mg tablet 300 mg PO HS 01/12/23 10/20/23 10/19/23 aripiprazole 5 mg tablet 5 mg PO QAM 03/31/23 10/20/23 10/20/23 duloxetine 60 mg capsule,delayed 60 mg PO QAM 03/31/23 10/20/23 10/20/23 release melatonin 5 mg tablet 5 mg PO HS 08/27/23 10/20/23 10/19/23 phenazopyridine 200 mg tablet 200 mg PO Q8H PRN pain #10 tabs 09/03/23 10/20/23 10/19/23 (Pyridium) nystatin 100,000 unit/gram topical 1 applic topical DAILY #30 grams 10/07/23 10/20/23 Unknown powder cephalexin 500 mg capsule 500 mg PO BID 5 days #10 caps 10/19/23 10/20/23 10/20/23 multivitamin 1 tab PO QAM 10/20/23 10/20/23 10/19/23 oxybutynin chloride 10 mg PO HS 10/21/23 10/21/23 Unknown Active Medications Generic Name Dose Route Start Last Admin Trade Name Freq PRN Reason Stop Dose Admin Acetaminophen 500 mg 10/20/23 20:32 10/22/23 04:18 Acetaminophen 500 Mg Tab PO 11/19/23 20:31 500 mg Q6H PRN Administration fever/pain Aripiprazole 5 mg 10/21/23 09:00 10/22/23 08:20 Aripiprazole 5 Mg Tab PO 11/20/23 08:59 5 mg QAM VALERIE Administration Duloxetine HCl 60 mg 10/21/23 09:00 10/22/23 08:20 Duloxetine Hcl 60 Mg Cap PO 11/20/23 08:59 60 mg QAM VALERIE Administration Ezetimibe 10 mg 10/21/23 09:00 10/22/23 08:20 Ezetimibe 10 Mg Tab PO 11/20/23 08:59 10 mg QAM VALERIE Administration Gabapentin 100 mg 10/21/23 09:00 10/22/23 08:20 Gabapentin 100 Mg Cap PO 11/20/23 08:59 100 mg QAM VALERIE Administration Gabapentin 200 mg 10/21/23 21:00 10/21/23 21:29 Gabapentin 100 Mg Cap PO 11/20/23 20:59 200 mg HS VALERIE Administration Ceftriaxone Sodium 2,000 mg/ 50 mls @ 100 mls/hr 10/21/23 02:00 10/22/23 02:59 Dextrose IV 10/31/23 01:59 Infused Q24H VALERIE Infusion Protocol Pantoprazole Sodium 40 mg/ 100 mls @ 20 mls/hr 10/21/23 04:00 10/22/23 08:28 Dextrose IV 11/20/23 03:59 8 mg/hr Q5H VALERIE 20 mls/hr Administration 8 MG/HR Metronidazole 500 mg in 100 mls @ 100 mls/hr 10/21/23 04:00 10/22/23 05:23 Flagyl IV 10/31/23 03:59 Infused Q8H VALERIE Infusion Protocol Insulin Aspart 0 units 10/21/23 16:30 10/22/23 09:43 Insulin Aspart Per Unit Charge SC 11/20/23 11:59 12 units ACHS VALERIE Administration Insulin Glargine 50 units 10/21/23 21:00 10/21/23 21:30 Lantus Per Unit Charge SQ 11/20/23 20:59 50 units HS VALERIE Administration Latanoprost 1 drops 10/20/23 21:00 10/21/23 22:28 Latanoprost 0.005% Op Soln 2.5 Ml Btl OP 11/19/23 20:59 1 drops HS VALERIE Administration Levothyroxine Sodium 75 mcg 10/21/23 06:30 10/22/23 05:46 Levothyroxine Sodium 75 Mcg Tablet PO 11/20/23 06:29 75 mcg [id number] VALERIE Administration Minto Carbonate 300 mg 10/21/23 21:00 10/21/23 21:30 Minto Carbonate 300 Mg Tab PO 11/20/23 20:59 300 mg HS VALERIE Administration Losartan Potassium 50 mg 10/21/23 09:00 10/22/23 08:20 Losartan Potassium 50 Mg Tab PO 11/20/23 08:59 50 mg QAM VALERIE Administration Protocol Melatonin 4.5 mg 10/20/23 21:00 10/21/23 21:33 Melatonin 3 Mg Tab PO 11/19/23 20:59 4.5 mg HS VALERIE Administration Mirtazapine 30 mg 10/21/23 21:00 10/21/23 21:31 Mirtazapine Tab 15 Mg Tab PO 11/20/23 20:59 30 mg HS VALERIE Administration Multivitamins 1 tab 10/21/23 09:00 10/22/23 08:20 Multivitamin Tab PO 11/20/23 08:59 1 tab QAM VALERIE Administration Thiamine HCl 100 mg 10/21/23 09:00 10/22/23 08:20 Thiamine Hcl 100 Mg Tab PO 11/20/23 08:59 100 mg QAM VALERIE Administration (1) Hypotension Hypotension type: unspecified hypotension type Qualified Code(s): I95.9 - Hypotension, unspecified
[2023-10-22] MEDS: LOSARTAN POTASSIUM 50 MG TAB PO SCH (08:20)
[2023-10-22] MEDS: DULoxetine HCL 60 MG CAP PO SCH (08:20)
[2023-10-22] MEDS: EZETIMIBE 10 MG TAB PO SCH (08:20)
[2023-10-22] MEDS: ARIPiprazole 5 MG TAB PO SCH (08:20)
[2023-10-22] MEDS: GABAPENTIN 100 MG CAP PO SCH ×2 (08:20→20:25)
[2023-10-22] MEDS: MULTIVITAMIN TAB PO SCH (08:20)
[2023-10-22] MEDS: THIAMINE HCL 100 MG TAB PO SCH (08:20)
[2023-10-22] MEDS: HYDROCORTISONE ACETATE 25 MG SUPP PR SCH ×3 (08:21→20:25)
[2023-10-22] MEDS ORDERED: DICYCLOMINE HCL 10 MG CAP PO ONE (08:48)
[2023-10-22] MEDS: INSULIN ASPART PER UNIT CHARGE SC SCH ×4 (09:43→20:50)
[2023-10-22] MEDS ORDERED: MESALAMINE 4 GM/60 ML ENEMA PR ONE (11:30)
[2023-10-22] MEDS ORDERED: INSULIN ASPART PER UNIT CHARGE SC STA (12:28)
[2023-10-22] MEDS: DICYCLOMINE HCL 10 MG CAP PO SCH ×2 (14:56→20:24)
[2023-10-22] MEDS ORDERED: HYDROmorphone INJ 0.5 MG/0.5 ML SYR IV STA (18:18)
[2023-10-22] MEDS: LITHIUM CARBONATE 300 MG TAB PO SCH (20:25)
[2023-10-22] MEDS: OXYBUTYNIN CHLORIDE XL 5 MG TABCR PO SCH (20:26)
[2023-10-22] MEDS: MIRTAZAPINE TAB 15 MG TAB PO SCH (20:26)
[2023-10-22] MEDS: MELATONIN 3 MG TAB PO SCH (20:27)
[2023-10-22] MEDS: LATANOPROST 0.005% OP SOLN 2.5 ML BTL OP SCH (20:28)
[2023-10-22] MEDS ORDERED: LANTUS PER UNIT CHARGE SQ SCH (21:00)
[2023-10-23] MEDS: PANTOprazole 40 MG in DEXTROSE 5% MINI-B 100 ML IV SCH ×3 (00:50→11:09)
[2023-10-23] MEDS: cefTRIAXone SODIUM 2,000 MG in DEXTROSE 5 % MINI-B 50 ML IV SCH (02:25)
[2023-10-23] MEDS: metroNIDAZOLE 500 MG/100 ML BAG IV SCH ×2 (03:03→11:08)
[2023-10-23] MEDS: ACETAMINOPHEN 500 MG TAB PO PRN (03:50)
[2023-10-23] MEDS: LEVOTHYROXINE SODIUM 75 MCG TABLET PO SCH (05:40)
[2023-10-23 07:41] LABS: Hemoglobin 8.3 g/dl (12.0-16.0); Mean Corpuscular Hemoglobin 27.3 pg (25.0-34.0); Mean Corpuscular Hgb Conc 29.6 g/dL (32.0-36.0); Mean Corpuscular Volume 92.1 fL (80.0-100.0); Mean Platelet Volume 8.5 fL (9.4-12.4); Platelet Count 190 K/uL (130-400); RDW Coefficient of Variation 16.8 % (11.5-14.5); Red Blood Count 3.04 M/uL (4.20-5.40); White Blood Count 6.18 K/ul (4.8-10.8)
[2023-10-23 08:01] LABS: BUN Creatinine Ratio 30.8 (10-20); Calcium 8.5 mg/dl (8.6-10.3); Creatinine Clr Calc Pharmacy 82.7 ml/min; Est GFR (African American) 106.8 ml/min; Est GFR (Non-African American) 92.2 ml/min; Magnesium 1.5 mg/dl (1.7-2.4); Phosphorus 2.3 mg/dl (2.5-4.9); Potassium 3.7 mmol/L (3.5-5.1)
[2023-10-23] MEDS ORDERED: POT PHOSPHATE MONOBASIC W/ SOD TAB PO STA (08:11)
[2023-10-23] MEDS ORDERED: MESALAMINE 4 GM/60 ML ENEMA PR ONE (09:00)
[2023-10-23] MEDS: INSULIN ASPART PER UNIT CHARGE SC SCH ×4 (09:28→21:39)
[2023-10-23] MEDS: LOSARTAN POTASSIUM 50 MG TAB PO SCH (09:29)
[2023-10-23] MEDS: MAGNESIUM SULFATE / D5W 1 GM/100 ML BAG IV SCH ×3 (09:29→13:15)
[2023-10-23] MEDS: GABAPENTIN 100 MG CAP PO SCH ×2 (09:29→20:35)
[2023-10-23] MEDS: DULoxetine HCL 60 MG CAP PO SCH (09:30)
[2023-10-23] MEDS: EZETIMIBE 10 MG TAB PO SCH (09:30)
[2023-10-23] MEDS: ARIPiprazole 5 MG TAB PO SCH (09:30)
[2023-10-23] MEDS: MULTIVITAMIN TAB PO SCH (09:30)
[2023-10-23] MEDS: THIAMINE HCL 100 MG TAB PO SCH (09:30)
[2023-10-23] MEDS: DICYCLOMINE HCL 10 MG CAP PO SCH ×4 (09:30→20:35)
[2023-10-23] MEDS: HYDROCORTISONE ACETATE 25 MG SUPP PR SCH ×2 (09:41→20:38)
[2023-10-23] MEDS ORDERED: HYDROmorphone INJ 0.5 MG/0.5 ML SYR IV STA ×3 (10:01→19:55)
[2023-10-23] MEDS: CALCIUM CARBONATE 500 MG CHEWABLE TAB PO SCH ×2 (11:08→20:34)
[2023-10-23] MEDS ORDERED: LOPERAMIDE HCL 2 MG CAP PO STA (14:09)
[2023-10-23] MEDS ORDERED: BISMUTH SUBSALICYLATE SUSP PO STA (14:09)
--- NOTE | 2023-10-23 14:24 | Hospitalist Progress Note ---
Date of Service October 23, 2023 Assessment & Plan (1) Hypotension: Plan: Ms. Karla Rowland is a 78 year old woman with history of cirrhosis (undergoing eval), cervical adenocarcinoma s/p chemoradiation c/b radiation proctitis and cystitis who is admitted due to diarrhea and weakness. Patient progressive becoming more weak. Patient was noted to have signs of colitis on imaging, consistent with history of radiation proctitis. Stool PCR negative for C. Diff. Family concerned about patient's ability to care for self, as well as partner's ability to care for patient as he is currently admitted and possibly imminent. Blood pressures have improved, hemoglobin is stable. Plan to trial HC suppositiory for colitis and pursue symptom management while seeking placement options. #ambulatory dysfunction -PT/OT SNF, ? manager terminal placement #Diarrhea, +FOBT #Recurrent GIB #Prior Radiation Proctitis Prior history of gastric ulcer, AVMS, colonic angiectasia, hemorrhoids, diverticulosis, history radiation proctitis as per records Deferred endoscopic eval at this time -Continue hydrocortisone suppository 50mg BID x 306weeks -Continue mesalamine enema x 3-6weeks at bed time -Follow up infectious stool PCR:negative -Dicyclomine QID to aid with diarrhea, pepto bismol x 1 + loperamide -Rectal sucralfate not available on formulary -Plan for GI follow up OP #Acute cystitis POA -Urine with E. Coli, ampcillin resistant -Continue CTX at this time while inpatient ( started on Keflex 10/19) will transition to PO upon d/c EOT 10/28) -Probiotics #Cirrhosis, compensated - History of decompensation: none; autoimmune workup negative - MELD-Na: 12 on admission--> 11, stable no further need to trend MELD at this time - Last EGD 2022: mild portal gastropathy, no varices - Last C-Scope [facility], colonoscopy, non-bleeding colonic angioectasis, limited sigmois diverticulosis, / no specimens collected 12/2022 - PSE: No evidence of HE on exam, ammonia WNL - Ascites: none on CT imaging - SBP: No evidence of SBP/ascites on imaging - EV: No evidence of UGIB presently, close monitoring - HRS: Cr at baseline - low Na diet - GI on consult, CTM #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 -CTM #Chronic Iron Deficiency Anemia -Follows Dr. Atkins, receives IV Iron transfusions -Transfuse <7.0 or symptomatic #Diabetes Type II -A1C 8.1% on admission -Lantus increased 56U, plus sliding scale -Glycemic consult #Urinary incontinence -Continue oxybutynin 10mg #Epilepsy, tonic clonic #Bipolar disorder -Continue Gabapentin 100/200mg -Continue Nebo 300mg -Continue duloxetine 60mg and aripiprazole 5mg -Continue Mirtazipine 30mg #Hypothyroidism -Continue levothyroxine 75mcg PT OT eval Social service re: discharge planning, placement DVT prophylaxis. SCDs RE recurrent GI bleed Full code Patient's family requesting updates from providers. Ms. Bessie Ramsey (daughter), contact #[phone]. Admission and Anticipated Discharge Date Admission Date: October 21, 2023 Subjective Endorsing ongoing diarrhea, though improving--endorses she relies heavily on imodium She notes the pain she feels is more gassy discomfort, limited in options given documented allergies--but notes she has taken peptobismol before without issues Notes relief with mesalamine enema Review of Systems Review of Systems: All systems reviewed & are unremarkable except as noted in Subjective Physical Exam Constitutional: WD/WN, vitals as above Respiratory: normal respiratory effort, lungs clear to auscultation Cardiovascular: RRR, no murmur, no edema Results & Data Results & Data Vital Signs (Past 12 Hours) Vital Signs Temp Pulse Resp BP Pulse Ox O2 Del Method 10/23/23 11:03 36.6 C 87 20 113/67 93 Room Air 10/23/23 07:14 37.4 C 91 H 20 118/64 97 Room Air 10/23/23 05:44 37 C 10/23/23 03:40 38.7 C H 99 H 18 138/72 93 Room Air Laboratory Results Short CBC 10/23/23 Range/Units 07:11 WBC 6.18 (4.8-10.8) K/ul Hgb 8.3 L (12.0-16.0) g/dl Hct 28.0 L (37.0-47.0) % Plt Count 190 (130-400) K/uL BMP 10/23/23 07:11 Sodium 132 L Potassium 3.7 Chloride 105 Carbon Dioxide 22 BUN 16 Creatinine 0.52 L Glucose 237 H Calcium 8.5 L Medications Administered Home Medications Medication Instructions Recorded Confirmed Last Taken levothyroxine 25 mcg tablet See Rx Instructions .Route .COMPLEX 12/07/18 10/20/23 10/19/23 (Synthroid) loperamide 2 mg tablet 2 mg PO QID PRN Diarrhea 12/07/18 10/20/23 Unknown metformin 750 mg tablet,extended 1,500 mg PO QAM 12/07/18 10/20/23 10/19/23 release 24 hr mirtazapine 30 mg tablet (Remeron) 30 mg PO HS 12/07/18 10/20/23 10/19/23 thiamine HCl (vitamin B1) 100 mg 100 mg PO QAM 12/07/18 10/20/23 10/20/23 tablet (Vitamin B-1) iron,carbonyl 65 mg-vitamin C 125 1 tab PO QAM 08/30/19 10/20/23 10/20/23 mg tablet,delayed release (Vitron-C) albuterol sulfate 90 mcg/actuation 1 puff inhalation Q6 PRN Wheezing 08/31/19 10/20/23 10/18/23 aerosol inhaler gabapentin 100 mg capsule See Rx Instructions .Route .COMPLEX 09/02/21 10/20/23 10/19/23 insulin glargine 100 unit/mL (3 54 unit subcut HS 09/02/21 10/20/23 10/19/23 mL) subcutaneous pen (Lantus Solostar U-100 Insulin) acetaminophen 325 mg tablet 325 mg PO Q6 PRN Pain 01/12/23 10/20/23 10/18/23 (Tylenol) candesartan 16 mg tablet 16 mg PO QAM 01/12/23 10/20/23 10/20/23 cyanocobalamin (vitamin B-12) 1,000 mcg IM MONTHLY 01/12/23 10/20/23 10/06/23 1,000 mcg/mL injection solution ezetimibe 10 mg tablet (Zetia) 10 mg PO QAM 01/12/23 10/20/23 10/20/23 latanoprost (PF) 0.005 % eye drops 1 drp ophthalmic (eye) HS 01/12/23 10/20/23 10/19/23 lithium carbonate 300 mg tablet 300 mg PO HS 01/12/23 10/20/23 10/19/23 aripiprazole 5 mg tablet 5 mg PO QAM 03/31/23 10/20/23 10/20/23 duloxetine 60 mg capsule,delayed 60 mg PO QAM 03/31/23 10/20/23 10/20/23 release melatonin 5 mg tablet 5 mg PO HS 08/27/23 10/20/23 10/19/23 phenazopyridine 200 mg tablet 200 mg PO Q8H PRN pain #10 tabs 09/03/23 10/20/23 10/19/23 (Pyridium) nystatin 100,000 unit/gram topical 1 applic topical DAILY #30 grams 10/07/23 10/20/23 Unknown powder cephalexin 500 mg capsule 500 mg PO BID 5 days #10 caps 10/19/23 10/20/23 10/20/23 multivitamin 1 tab PO QAM 10/20/23 10/20/23 10/19/23 oxybutynin chloride 10 mg PO HS 10/21/23 10/21/23 Unknown Active Medications Generic Name Dose Route Start Last Admin Trade Name Freq PRN Reason Stop Dose Admin Acetaminophen 500 mg 10/20/23 20:32 10/23/23 03:50 Acetaminophen 500 Mg Tab PO 11/19/23 20:31 500 mg Q6H PRN Administration fever/pain Aripiprazole 5 mg 10/21/23 09:00 10/23/23 09:30 Aripiprazole 5 Mg Tab PO 11/20/23 08:59 5 mg QAM VALERIE Administration Calcium Carbonate 500 mg 10/23/23 10:15 10/23/23 11:08 Calcium Carbonate 500 Mg Chewable Tab PO 11/22/23 10:14 500 mg BID VALERIE Administration Dicyclomine HCl 10 mg 10/23/23 13:00 10/23/23 13:15 Dicyclomine Hcl 10 Mg Cap PO 11/22/23 12:59 10 mg QID VALERIE Administration Duloxetine HCl 60 mg 10/21/23 09:00 10/23/23 09:30 Duloxetine Hcl 60 Mg Cap PO 11/20/23 08:59 60 mg QAM VALERIE Administration Ezetimibe 10 mg 10/21/23 09:00 10/23/23 09:30 Ezetimibe 10 Mg Tab PO 11/20/23 08:59 10 mg QAM VALERIE Administration Gabapentin 100 mg 10/21/23 09:00 10/23/23 09:29 Gabapentin 100 Mg Cap PO 11/20/23 08:59 100 mg QAM VALERIE Administration Gabapentin 200 mg 10/21/23 21:00 10/22/23 20:25 Gabapentin 100 Mg Cap PO 11/20/23 20:59 200 mg HS VALERIE Administration Hydrocortisone 50 mg 10/22/23 21:00 10/23/23 09:41 Hydrocortisone Acetate 25 Mg Supp MS 11/21/23 20:59 50 mg BID VALERIE Administration Ceftriaxone Sodium 2,000 mg/ 50 mls @ 100 mls/hr 10/21/23 02:00 10/23/23 03:15 Dextrose IV 10/31/23 01:59 Infused Q24H VALERIE Infusion Protocol Pantoprazole Sodium 40 mg/ 100 mls @ 20 mls/hr 10/21/23 04:00 10/23/23 11:09 Dextrose IV 11/20/23 03:59 8 mg/hr Q5H VALERIE 20 mls/hr Administration 8 MG/HR Metronidazole 500 mg in 100 mls @ 100 mls/hr 10/21/23 04:00 10/23/23 12:58 Flagyl IV 10/31/23 03:59 Infused Q8H VALERIE Infusion Protocol Insulin Aspart 0 units 10/21/23 16:30 10/23/23 14:03 Insulin Aspart Per Unit Charge SC 11/20/23 11:59 17 units ACHS VALERIE Administration Insulin Glargine 56 units 10/22/23 21:00 10/22/23 20:49 Lantus Per Unit Charge SQ 11/21/23 20:59 56 units HS VALERIE Administration Latanoprost 1 drops 10/20/23 21:00 10/22/23 20:28 Latanoprost 0.005% Op Soln 2.5 Ml Btl OP 11/19/23 20:59 1 drops HS VALERIE Administration Levothyroxine Sodium 75 mcg 10/21/23 06:30 10/23/23 05:40 Levothyroxine Sodium 75 Mcg Tablet PO 11/20/23 06:29 75 mcg [id number] VALERIE Administration Nebo Carbonate 300 mg 10/21/23 21:00 10/22/23 20:25 Nebo Carbonate 300 Mg Tab PO 11/20/23 20:59 300 mg HS VALERIE Administration Losartan Potassium 50 mg 10/21/23 09:00 10/23/23 09:29 Losartan Potassium 50 Mg Tab PO 11/20/23 08:59 50 mg QAM VALERIE Administration Protocol Melatonin 4.5 mg 10/20/23 21:00 10/22/23 20:27 Melatonin 3 Mg Tab PO 11/19/23 20:59 4.5 mg HS VALERIE Administration Mirtazapine 30 mg 10/21/23 21:00 10/22/23 20:26 Mirtazapine Tab 15 Mg Tab PO 11/20/23 20:59 30 mg HS VALERIE Administration Multivitamins 1 tab 10/21/23 09:00 10/23/23 09:30 Multivitamin Tab PO 11/20/23 08:59 1 tab QAM VALERIE Administration Oxybutynin Chloride 10 mg 10/22/23 21:00 10/22/23 20:26 Oxybutynin Chloride Xl 5 Mg Tabcr PO 11/21/23 20:59 10 mg HS VALERIE Administration Thiamine HCl 100 mg 10/21/23 09:00 10/23/23 09:30 Thiamine Hcl 100 Mg Tab PO 11/20/23 08:59 100 mg QAM VALERIE Administration (1) Hypotension Hypotension type: unspecified hypotension type Qualified Code(s): I95.9 - Hypotension, unspecified
[2023-10-23] MEDS ORDERED: LANTUS PER UNIT CHARGE SQ STA (14:53)
[2023-10-23] MEDS: ACETAMINOPHEN 500 MG TAB PO SCH ×2 (17:00→21:43)
[2023-10-23] MEDS ORDERED: INSULIN HUMAN REGULAR PER UNIT 5 UNITS in SYRINGE 4.95 ML IV STA (20:10)
[2023-10-23] MEDS: ALBUTEROL HFA 8 GM INHALER INH SCH ×3 (20:29→23:55)
[2023-10-23] MEDS: LANTUS PER UNIT CHARGE SQ SCH (20:32)
[2023-10-23] MEDS: LITHIUM CARBONATE 300 MG TAB PO SCH (20:35)
[2023-10-23] MEDS: MIRTAZAPINE TAB 15 MG TAB PO SCH (20:36)
[2023-10-23] MEDS: OXYBUTYNIN CHLORIDE XL 5 MG TABCR PO SCH (20:36)
[2023-10-23] MEDS: MESALAMINE 4 GM/60 ML ENEMA PR SCH (20:37)
[2023-10-23] MEDS: LATANOPROST 0.005% OP SOLN 2.5 ML BTL OP SCH (20:38)
[2023-10-23] MEDS: MELATONIN 3 MG TAB PO SCH (20:43)
[2023-10-23] MEDS ORDERED: ALBUTEROL HFA 8 GM INHALER INH PRN (23:52)
[2023-10-24] MEDS: cefTRIAXone SODIUM 2,000 MG in DEXTROSE 5 % MINI-B 50 ML IV SCH (02:08)
[2023-10-24] MEDS: LOPERAMIDE HCL 2 MG CAP PO PRN (02:38)
[2023-10-24] MEDS: ACETAMINOPHEN 500 MG TAB PO SCH ×4 (04:23→18:35)
[2023-10-24] MEDS: LEVOTHYROXINE SODIUM 75 MCG TABLET PO SCH (05:00)
[2023-10-24] MEDS ORDERED: HYDROmorphone INJ 0.5 MG/0.5 ML SYR IV STA (05:04)
[2023-10-24 06:42] LABS: Hematocrit (blood only) 26.2 % (37.0-47.0); Hemoglobin 7.8 g/dl (12.0-16.0); Mean Corpuscular Hemoglobin 26.9 pg (25.0-34.0); Mean Corpuscular Hgb Conc 29.8 g/dL (32.0-36.0); Mean Corpuscular Volume 90.3 fL (80.0-100.0); Mean Platelet Volume 8.9 fL (9.4-12.4); Platelet Count 175 K/uL (130-400); RDW Coefficient of Variation 16.2 % (11.5-14.5); White Blood Count 3.03 K/ul (4.8-10.8)
[2023-10-24 07:02] LABS: BUN Creatinine Ratio 31.3 (10-20); Calcium 8.8 mg/dl (8.6-10.3); Creatinine Clr Calc Pharmacy 89.1 ml/min; Est GFR (African American) 109.7 ml/min; Est GFR (Non-African American) 94.6 ml/min; Magnesium 1.8 mg/dl (1.7-2.4); Phosphorus 2.8 mg/dl (2.5-4.9); Potassium 3.1 mmol/L (3.5-5.1)
[2023-10-24] MEDS ORDERED: POTASSIUM CHLORIDE CRTAB 20 MEQ TABCR PO STA ×2 (07:07→09:45)
--- NOTE | 2023-10-24 08:12 | XRay Report ---
KUB HISTORY: continued abd pain COMPARISON: Abdomen and pelvis CT 10/21/2023. FINDINGS: Mildly dilated gas-filled loops of large and small bowel seen within the abdomen. These fav or an ileus versus enterocolitis. This is similar to the prior abdomen and pelvis CT. No renal calcu li. No ureteral calculi. No pneumoperitoneum or pneumatosis. IMPRESSION: Mildly dilated gas-filled loops of large and small bowel seen within the abdomen. These favor an ileu s versus enterocolitis. This is similar to the prior abdomen and pelvis CT. ACT 112: Negative or not required by law. Electronically signed by: Fausto Angel M.D. 10/24/2023 8:11 AM
[2023-10-24] MEDS: LANTUS PER UNIT CHARGE SQ SCH ×2 (09:17→20:46)
[2023-10-24] MEDS: INSULIN ASPART PER UNIT CHARGE SC SCH ×4 (09:17→20:45)
[2023-10-24] MEDS: CALCIUM CARBONATE 500 MG CHEWABLE TAB PO SCH ×2 (09:18→20:52)
[2023-10-24] MEDS: DICYCLOMINE HCL 10 MG CAP PO SCH ×4 (09:18→20:50)
[2023-10-24] MEDS: GABAPENTIN 100 MG CAP PO SCH ×2 (09:18→20:58)
[2023-10-24] MEDS: MULTIVITAMIN TAB PO SCH (09:18)
[2023-10-24] MEDS: ARIPiprazole 5 MG TAB PO SCH (09:18)
[2023-10-24] MEDS: DULoxetine HCL 60 MG CAP PO SCH (09:18)
[2023-10-24] MEDS: EZETIMIBE 10 MG TAB PO SCH (09:18)
[2023-10-24] MEDS: THIAMINE HCL 100 MG TAB PO SCH (09:18)
[2023-10-24] MEDS: ADVANCED PROBIOTIC 1250 MG CAPSULE PO SCH (09:19)
[2023-10-24] MEDS: LOSARTAN POTASSIUM 50 MG TAB PO SCH (09:19)
[2023-10-24] MEDS: HYDROCORTISONE ACETATE 25 MG SUPP PR SCH ×2 (09:19→20:51)
[2023-10-24] MEDS: CYCLOBENZAPRINE HCL 5 MG TAB PO PRN ×2 (09:24→13:15)
[2023-10-24] MEDS ORDERED: Nursing to Pharmacy Communication SCH (09:45)
[2023-10-24] MEDS: SUCRALFATE 1 GM TAB PO SCH ×4 (10:41→20:50)
--- NOTE | 2023-10-24 16:13 | Hospitalist Progress Note ---
Date of Service October 24, 2023 Assessment & Plan (1) Hypotension: Plan: Ms. Karla Rowland is a 78 year old woman with history of cirrhosis (undergoing eval), cervical adenocarcinoma s/p chemoradiation c/b radiation proctitis and cystitis who is admitted due to diarrhea and weakness. Patient progressive becoming more weak. Patient was noted to have signs of colitis on imaging, consistent with history of radiation proctitis. Stool PCR negative for C. Diff. Family concerned about patient's ability to care for self, as well as partner's ability to care for patient as he is currently admitted and possibly imminent. Blood pressures have improved, hemoglobin is stable. Currently doing well with flexeril, mesalamine, and HC suppository. #ambulatory dysfunction -PT/OT SNF, ? lath tier placement #Diarrhea, +FOBT #Recurrent GIB #Prior Radiation Proctitis Prior history of gastric ulcer, AVMS, colonic angiectasia, hemorrhoids, diverticulosis, history radiation proctitis as per records Deferred endoscopic eval at this time -Continue hydrocortisone suppository 50mg BID x 306weeks -Continue mesalamine enema x 3-6weeks at bed time -Follow up infectious stool PCR:negative -Dicyclomine QID to aid with diarrhea, pepto bismol x 1 + loperamide -Rectal sucralfate not available on formulary -Plan for GI follow up OP #Acute cystitis POA -Urine with E. Coli, ampcillin resistant -Continue CTX at this time while inpatient ( started on Keflex 10/19) will transition to PO upon d/c EOT 10/28) -Probiotics #Cirrhosis, compensated - History of decompensation: none; autoimmune workup negative - MELD-Na: 12 on admission--> 11, stable no further need to trend MELD at this time - Last EGD 2022: mild portal gastropathy, no varices - Last C-Scope [facility], colonoscopy, non-bleeding colonic angioectasis, limited sigmois diverticulosis, / no specimens collected 12/2022 - PSE: No evidence of HE on exam, ammonia WNL - Ascites: none on CT imaging - SBP: No evidence of SBP/ascites on imaging - EV: No evidence of UGIB presently, close monitoring - HRS: Cr at baseline - low Na diet - GI on consult, CTM #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 -CTM #Chronic Iron Deficiency Anemia -Follows Dr. Atkins, receives IV Iron transfusions -Transfuse <7.0 or symptomatic -IV venofer #Diabetes Type II -A1C 8.1% on admission -Lantus increased 56U, plus sliding scale -Glycemic consult #Urinary incontinence -Continue oxybutynin 10mg #Epilepsy, tonic clonic #Bipolar disorder -Continue Gabapentin 100/200mg -Continue [place] 300mg -Continue duloxetine 60mg and aripiprazole 5mg -Continue Mirtazipine 30mg #Hypothyroidism -Continue levothyroxine 75mcg PT OT eval Social service re: discharge planning, placement DVT prophylaxis. SCDs RE recurrent GI bleed Full code Patient's family requesting updates from providers. Ms. Bessie Ramsey (daughter), contact #[phone]. Admission and Anticipated Discharge Date Admission Date: October 21, 2023 Subjective NAEO Reports feeling much improved day by day appetite present denies any acute concerns Physical Exam Physical Exam: sitting at bed side chair, enjoying breakfast Respiratory: normal respiratory effort, lungs clear to auscultation Cardiovascular: RRR, no murmur, no edema Results & Data Results & Data Vital Signs (Past 12 Hours) Vital Signs Temp Pulse Pulse Resp BP Pulse Ox O2 Del Method 10/24/23 10:55 36.4 C L 72 18 105/61 97 Room Air 10/24/23 07:48 58 L 10/24/23 07:37 36.4 C L 79 17 128/74 98 Room Air Laboratory Results Short CBC 10/24/23 Range/Units 05:59 WBC 3.03 L (4.8-10.8) K/ul Hgb 7.8 L (12.0-16.0) g/dl Hct 26.2 L (37.0-47.0) % Plt Count 175 (130-400) K/uL BMP 10/24/23 05:59 Sodium 137 Potassium 3.1 L Chloride 109 H Carbon Dioxide 25 BUN 15 Creatinine 0.48 L Glucose 118 H Calcium 8.8 Medications Administered Home Medications Medication Instructions Recorded Confirmed Last Taken levothyroxine 25 mcg tablet See Rx Instructions .Route .COMPLEX 12/07/18 10/20/23 10/19/23 (Synthroid) loperamide 2 mg tablet 2 mg PO QID PRN Diarrhea 12/07/18 10/20/23 Unknown metformin 750 mg tablet,extended 1,500 mg PO QAM 12/07/18 10/20/23 10/19/23 release 24 hr mirtazapine 30 mg tablet (Remeron) 30 mg PO HS 12/07/18 10/20/23 10/19/23 thiamine HCl (vitamin B1) 100 mg 100 mg PO QAM 12/07/18 10/20/23 10/20/23 tablet (Vitamin B-1) iron,carbonyl 65 mg-vitamin C 125 1 tab PO QAM 08/30/19 10/20/23 10/20/23 mg tablet,delayed release (Vitron-C) albuterol sulfate 90 mcg/actuation 1 puff inhalation Q6 PRN Wheezing 08/31/19 10/20/23 10/18/23 aerosol inhaler gabapentin 100 mg capsule See Rx Instructions .Route .COMPLEX 09/02/21 10/20/23 10/19/23 insulin glargine 100 unit/mL (3 54 unit subcut HS 09/02/21 10/20/23 10/19/23 mL) subcutaneous pen (Lantus Solostar U-100 Insulin) acetaminophen 325 mg tablet 325 mg PO Q6 PRN Pain 01/12/23 10/20/23 10/18/23 (Tylenol) candesartan 16 mg tablet 16 mg PO QAM 01/12/23 10/20/23 10/20/23 cyanocobalamin (vitamin B-12) 1,000 mcg IM MONTHLY 01/12/23 10/20/23 10/06/23 1,000 mcg/mL injection solution ezetimibe 10 mg tablet (Zetia) 10 mg PO QAM 01/12/23 10/20/23 10/20/23 latanoprost (PF) 0.005 % eye drops 1 drp ophthalmic (eye) HS 01/12/23 10/20/23 10/19/23 lithium carbonate 300 mg tablet 300 mg PO HS 01/12/23 10/20/23 10/19/23 aripiprazole 5 mg tablet 5 mg PO QAM 03/31/23 10/20/23 10/20/23 duloxetine 60 mg capsule,delayed 60 mg PO QAM 03/31/23 10/20/23 10/20/23 release melatonin 5 mg tablet 5 mg PO HS 08/27/23 10/20/23 10/19/23 phenazopyridine 200 mg tablet 200 mg PO Q8H PRN pain #10 tabs 09/03/23 10/20/23 10/19/23 (Pyridium) nystatin 100,000 unit/gram topical 1 applic topical DAILY #30 grams 10/07/23 10/20/23 Unknown powder cephalexin 500 mg capsule 500 mg PO BID 5 days #10 caps 10/19/23 10/20/23 10/20/23 multivitamin 1 tab PO QAM 10/20/23 10/20/23 10/19/23 oxybutynin chloride 10 mg PO HS 10/21/23 10/21/23 Unknown Active Medications Generic Name Dose Route Start Last Admin Trade Name Freq PRN Reason Stop Dose Admin Acetaminophen 500 mg 10/23/23 16:45 10/24/23 10:43 Acetaminophen 500 Mg Tab PO 11/22/23 16:44 500 mg Q6H VALERIE Administration Aripiprazole 5 mg 10/21/23 09:00 10/24/23 09:18 Aripiprazole 5 Mg Tab PO 11/20/23 08:59 5 mg QAM VALERIE Administration Calcium Carbonate 500 mg 10/23/23 10:15 10/24/23 09:18 Calcium Carbonate 500 Mg Chewable Tab PO 11/22/23 10:14 500 mg BID VALERIE Administration Cyclobenzaprine HCl 5 mg 10/24/23 07:27 10/24/23 13:15 Cyclobenzaprine Hcl 5 Mg Tab PO 11/23/23 08:59 5 mg TID PRN Administration cramps/pain Dicyclomine HCl 10 mg 10/23/23 13:00 10/24/23 13:27 Dicyclomine Hcl 10 Mg Cap PO 11/22/23 12:59 10 mg QID VALERIE Administration Duloxetine HCl 60 mg 10/21/23 09:00 10/24/23 09:18 Duloxetine Hcl 60 Mg Cap PO 11/20/23 08:59 60 mg QAM VALERIE Administration Ezetimibe 10 mg 10/21/23 09:00 10/24/23 09:18 Ezetimibe 10 Mg Tab PO 11/20/23 08:59 10 mg QAM VALERIE Administration Gabapentin 100 mg 10/21/23 09:00 10/24/23 09:18 Gabapentin 100 Mg Cap PO 11/20/23 08:59 100 mg QAM VALERIE Administration Gabapentin 200 mg 10/21/23 21:00 10/23/23 20:35 Gabapentin 100 Mg Cap PO 11/20/23 20:59 200 mg HS VALERIE Administration Hydrocortisone 50 mg 10/22/23 21:00 10/24/23 09:19 Hydrocortisone Acetate 25 Mg Supp MD 11/21/23 20:59 50 mg BID VALERIE Administration Ceftriaxone Sodium 2,000 mg/ 50 mls @ 100 mls/hr 10/21/23 02:00 10/24/23 03:18 Dextrose IV 10/31/23 01:59 Infused Q24H VALERIE Infusion Protocol Insulin Aspart 0 units 10/21/23 16:30 10/24/23 13:14 Insulin Aspart Per Unit Charge SC 11/20/23 11:59 15 units ACHS VALERIE Administration Insulin Glargine 35 units 10/23/23 21:00 10/24/23 09:17 Lantus Per Unit Charge SQ 11/22/23 20:59 35 units BID VALERIE Administration Lactobacillus Acidophilus 2 cap 10/24/23 09:00 10/24/23 09:19 Advanced Probiotic 1250 Mg Capsule PO 11/23/23 08:59 2 cap DAILY VALERIE Administration Latanoprost 1 drops 10/20/23 21:00 10/23/23 20:38 Latanoprost 0.005% Op Soln 2.5 Ml Btl OP 11/19/23 20:59 1 drops HS VALERIE Administration Levothyroxine Sodium 75 mcg 10/21/23 06:30 10/24/23 05:00 Levothyroxine Sodium 75 Mcg Tablet PO 11/20/23 06:29 75 mcg [email or web address] VALERIE Administration [place] Carbonate 300 mg 10/21/23 21:00 10/23/23 20:35 [place] Carbonate 300 Mg Tab PO 11/20/23 20:59 300 mg HS VALERIE Administration Loperamide HCl 2 mg 10/23/23 14:09 10/24/23 02:38 Loperamide Hcl 2 Mg Cap PO 11/22/23 14:08 2 mg Q6H PRN Administration Diarrhea Losartan Potassium 50 mg 10/21/23 09:00 10/24/23 09:19 Losartan Potassium 50 Mg Tab PO 11/20/23 08:59 50 mg QAM VALERIE Administration Protocol Melatonin 4.5 mg 10/20/23 21:00 10/23/23 20:43 Melatonin 3 Mg Tab PO 11/19/23 20:59 4.5 mg HS VALERIE Administration Mesalamine 4 gm 10/23/23 21:00 10/23/23 20:37 Mesalamine 4 Gm/60 Ml Enema MD 11/22/23 20:59 Not Given QPM VALERIE Mirtazapine 30 mg 10/21/23 21:00 10/23/23 20:36 Mirtazapine Tab 15 Mg Tab PO 11/20/23 20:59 30 mg HS VALERIE Administration Multivitamins 1 tab 10/21/23 09:00 10/24/23 09:18 Multivitamin Tab PO 11/20/23 08:59 1 tab QAM VALERIE Administration Oxybutynin Chloride 10 mg 10/22/23 21:00 10/23/23 20:36 Oxybutynin Chloride Xl 5 Mg Tabcr PO 11/21/23 20:59 10 mg HS VALERIE Administration Sucralfate 1 gm 10/24/23 09:00 10/24/23 13:27 Sucralfate 1 Gm Tab PO 11/23/23 08:59 1 gm QID VALERIE Administration Thiamine HCl 100 mg 10/21/23 09:00 10/24/23 09:18 Thiamine Hcl 100 Mg Tab PO 11/20/23 08:59 100 mg QAM VALERIE Administration (1) Hypotension Hypotension type: unspecified hypotension type Qualified Code(s): I95.9 - Hypotension, unspecified
[2023-10-24] MEDS ORDERED: IRON SUCROSE 300 MG in SODIUM CHLORIDE 0.9% 250 ML IV SCH (17:00)
[2023-10-24] MEDS: LITHIUM CARBONATE 300 MG TAB PO SCH (20:52)
[2023-10-24] MEDS: MELATONIN 3 MG TAB PO SCH (20:53)
[2023-10-24] MEDS: OXYBUTYNIN CHLORIDE XL 5 MG TABCR PO SCH (20:53)
[2023-10-24] MEDS: MIRTAZAPINE TAB 15 MG TAB PO SCH (20:54)
[2023-10-24] MEDS: LATANOPROST 0.005% OP SOLN 2.5 ML BTL OP SCH (20:56)
[2023-10-24] MEDS: MESALAMINE 4 GM/60 ML ENEMA PR SCH (23:28)
[2023-10-25] MEDS: ACETAMINOPHEN 500 MG TAB PO SCH ×5 (00:42→22:05)
[2023-10-25] MEDS: cefTRIAXone SODIUM 2,000 MG in DEXTROSE 5 % MINI-B 50 ML IV SCH (03:01)
[2023-10-25 06:06] LABS: Hematocrit (blood only) 29.4 % (37.0-47.0); Hemoglobin 8.7 g/dl (12.0-16.0); Mean Corpuscular Hemoglobin 26.6 pg (25.0-34.0); Mean Corpuscular Hgb Conc 29.6 g/dL (32.0-36.0); Mean Corpuscular Volume 89.9 fL (80.0-100.0); Mean Platelet Volume 8.8 fL (9.4-12.4); Platelet Count 202 K/uL (130-400); RDW Coefficient of Variation 15.9 % (11.5-14.5); RDW Standard Deviation 52.7 fL (36.4-46.3); Red Blood Count 3.27 M/uL (4.20-5.40); White Blood Count 4.23 K/ul (4.8-10.8)
[2023-10-25 06:20] LABS: BUN Creatinine Ratio 41.7 (10-20); Calcium 9.2 mg/dl (8.6-10.3); Est GFR (African American) 109.7 ml/min; Est GFR (Non-African American) 94.6 ml/min; Magnesium 1.4 mg/dl (1.7-2.4); Potassium 4.1 mmol/L (3.5-5.1)
[2023-10-25] MEDS ORDERED: LEVOTHYROXINE SODIUM 100 MCG TABLET PO SCH (06:30)
--- NOTE | 2023-10-25 07:37 | Hospitalist Progress Note ---
Date of Service October 25, 2023 Assessment & Plan (1) Hypotension: Plan: Ms. Karla Rowland is a 78 year old woman with history of cirrhosis (undergoing eval), cervical adenocarcinoma s/p chemoradiation c/b radiation proctitis and cystitis who is admitted due to diarrhea and weakness. Patient progressive becoming more weak. Patient was noted to have signs of colitis on imaging, consistent with history of radiation proctitis. Stool PCR negative for C. Diff. Family concerned about patient's ability to care for self, as well as partner's ability to care for patient as he is currently admitted and possibly imminent. Blood pressures have improved, hemoglobin is stable. Currently doing well with flexeril, mesalamine, and HC suppository. #ambulatory dysfunction -PT/OT SNF, ? termite technician placement #Diarrhea, +FOBT #Recurrent GIB #Prior Radiation Proctitis Prior history of gastric ulcer, AVMS, colonic angiectasia, hemorrhoids, diverticulosis, history radiation proctitis as per records Deferred endoscopic eval at this time -Continue hydrocortisone suppository 50mg BID x 306weeks -Continue mesalamine enema x 3-6weeks at bed time (has refused x2, will likely hold if patient is improving and doesn't want it ) - infectious stool PCR:negative -Dicyclomine QID to aid with diarrhea, pepto bismol x 1 + loperamide -Rectal sucralfate not available on formulary -Plan for GI follow up OP #Acute cystitis POA -Urine with E. Coli, ampcillin resistant -Continue CTX at this time while inpatient ( started on Keflex 10/19) will transition to PO upon d/c EOT 10/28) -Probiotics #Cirrhosis, compensated - History of decompensation: none; autoimmune workup negative - MELD-Na: 12 on admission--> 11, stable no further need to trend MELD at this time - Last EGD 2022: mild portal gastropathy, no varices - Last C-Scope [facility], colonoscopy, non-bleeding colonic angioectasis, limited sigmois diverticulosis, / no specimens collected 12/2022 - PSE: No evidence of HE on exam, ammonia WNL - Ascites: none on CT imaging - SBP: No evidence of SBP/ascites on imaging - EV: No evidence of UGIB presently, close monitoring - HRS: Cr at baseline - low Na diet - GI on consult, CTM #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 -CTM #Chronic Iron Deficiency Anemia -Follows Dr. Atkins, receives IV Iron transfusions -Transfuse <7.0 or symptomatic -IV venofer #Diabetes Type II -A1C 8.1% on admission -Lantus increased 56U, plus sliding scale -Glycemic consult #Urinary incontinence -Continue oxybutynin 10mg #Epilepsy, tonic clonic #Bipolar disorder -Continue Gabapentin 100/200mg -Continue [place] 300mg -Continue duloxetine 60mg and aripiprazole 5mg -Continue Mirtazipine 30mg #Hypothyroidism -Continue levothyroxine 75mcg PT OT evsd Social service re: discharge planning, placement DVT prophylaxis. SCDs RE recurrent GI bleed Full code Patient's family requesting updates from providers. Ms. Bessie Ramsey (daughter), contact #[phone]. Admission and Anticipated Discharge Date Admission Date: October 21, 2023 Subjective NAEO reports pain and diarrhea improved Review of Systems Review of Systems: All systems reviewed & are unremarkable except as noted in Subjective Physical Exam Constitutional: WD/WN, vitals as above Respiratory: normal respiratory effort, lungs clear to auscultation Cardiovascular: RRR, no murmur, no edema Gastrointestinal (Abdomen): normal bowel sounds, soft, nontender, no hepatosplenomegaly Results & Data Results & Data Vital Signs (Past 12 Hours) Vital Signs Temp Pulse Pulse Resp BP Pulse Ox O2 Del Method 10/25/23 03:44 36.8 C 61 18 109/55 L 98 Room Air 10/24/23 23:28 36.4 C L 63 18 112/50 L 97 Room Air 10/24/23 21:56 69 10/24/23 20:00 Room Air 10/24/23 19:38 36.5 C 69 16 99/50 L 96 Room Air Laboratory Results Short CBC 10/25/23 Range/Units 05:46 WBC 4.23 L (4.8-10.8) K/ul Hgb 8.7 L (12.0-16.0) g/dl Hct 29.4 L (37.0-47.0) % Plt Count 202 (130-400) K/uL BMP 10/25/23 05:46 Sodium 138 Potassium 4.1 D Chloride 112 H Carbon Dioxide 23 BUN 20 Creatinine 0.48 L Glucose 84 Calcium 9.2 Medications Administered Home Medications Medication Instructions Recorded Confirmed Last Taken levothyroxine 25 mcg tablet See Rx Instructions .Route .COMPLEX 12/07/18 10/20/23 10/19/23 (Synthroid) loperamide 2 mg tablet 2 mg PO QID PRN Diarrhea 12/07/18 10/20/23 Unknown metformin 750 mg tablet,extended 1,500 mg PO QAM 12/07/18 10/20/23 10/19/23 release 24 hr mirtazapine 30 mg tablet (Remeron) 30 mg PO HS 12/07/18 10/20/23 10/19/23 thiamine HCl (vitamin B1) 100 mg 100 mg PO QAM 12/07/18 10/20/23 10/20/23 tablet (Vitamin B-1) iron,carbonyl 65 mg-vitamin C 125 1 tab PO QAM 08/30/19 10/20/23 10/20/23 mg tablet,delayed release (Vitron-C) albuterol sulfate 90 mcg/actuation 1 puff inhalation Q6 PRN Wheezing 08/31/19 10/20/23 10/18/23 aerosol inhaler gabapentin 100 mg capsule See Rx Instructions .Route .COMPLEX 09/02/21 10/20/23 10/19/23 insulin glargine 100 unit/mL (3 54 unit subcut HS 09/02/21 10/20/23 10/19/23 mL) subcutaneous pen (Lantus Solostar U-100 Insulin) acetaminophen 325 mg tablet 325 mg PO Q6 PRN Pain 01/12/23 10/20/23 10/18/23 (Tylenol) candesartan 16 mg tablet 16 mg PO QAM 01/12/23 10/20/23 10/20/23 cyanocobalamin (vitamin B-12) 1,000 mcg IM MONTHLY 01/12/23 10/20/23 10/06/23 1,000 mcg/mL injection solution ezetimibe 10 mg tablet (Zetia) 10 mg PO QAM 01/12/23 10/20/23 10/20/23 latanoprost (PF) 0.005 % eye drops 1 drp ophthalmic (eye) HS 01/12/23 10/20/23 10/19/23 lithium carbonate 300 mg tablet 300 mg PO HS 01/12/23 10/20/23 10/19/23 aripiprazole 5 mg tablet 5 mg PO QAM 03/31/23 10/20/23 10/20/23 duloxetine 60 mg capsule,delayed 60 mg PO QAM 03/31/23 10/20/23 10/20/23 release melatonin 5 mg tablet 5 mg PO HS 08/27/23 10/20/23 10/19/23 phenazopyridine 200 mg tablet 200 mg PO Q8H PRN pain #10 tabs 09/03/23 10/20/23 10/19/23 (Pyridium) nystatin 100,000 unit/gram topical 1 applic topical DAILY #30 grams 10/07/23 10/20/23 Unknown powder cephalexin 500 mg capsule 500 mg PO BID 5 days #10 caps 10/19/23 10/20/23 10/20/23 multivitamin 1 tab PO QAM 10/20/23 10/20/23 10/19/23 oxybutynin chloride 10 mg PO HS 10/21/23 10/21/23 Unknown Active Medications Generic Name Dose Route Start Last Admin Trade Name Freq PRN Reason Stop Dose Admin Acetaminophen 500 mg 10/23/23 16:45 10/25/23 11:02 Acetaminophen 500 Mg Tab PO 11/22/23 16:44 500 mg Q6H VALERIE Administration Aripiprazole 5 mg 10/21/23 09:00 10/25/23 09:00 Aripiprazole 5 Mg Tab PO 11/20/23 08:59 5 mg QAM VALERIE Administration Calcium Carbonate 500 mg 10/23/23 10:15 10/25/23 09:01 Calcium Carbonate 500 Mg Chewable Tab PO 11/22/23 10:14 500 mg BID VALERIE Administration Cyclobenzaprine HCl 5 mg 10/24/23 07:27 10/24/23 13:15 Cyclobenzaprine Hcl 5 Mg Tab PO 11/23/23 08:59 5 mg TID PRN Administration cramps/pain Dicyclomine HCl 10 mg 10/23/23 13:00 10/25/23 12:58 Dicyclomine Hcl 10 Mg Cap PO 11/22/23 12:59 10 mg QID VALERIE Administration Duloxetine HCl 60 mg 10/21/23 09:00 10/25/23 09:00 Duloxetine Hcl 60 Mg Cap PO 11/20/23 08:59 60 mg QAM VALERIE Administration Ezetimibe 10 mg 10/21/23 09:00 10/25/23 09:00 Ezetimibe 10 Mg Tab PO 11/20/23 08:59 10 mg QAM VALERIE Administration Gabapentin 100 mg 10/21/23 09:00 10/25/23 09:01 Gabapentin 100 Mg Cap PO 11/20/23 08:59 100 mg QAM VALERIE Administration Gabapentin 200 mg 10/21/23 21:00 10/24/23 20:58 Gabapentin 100 Mg Cap PO 11/20/23 20:59 200 mg HS VALERIE Administration Hydrocortisone 50 mg 10/22/23 21:00 10/25/23 09:00 Hydrocortisone Acetate 25 Mg Supp [place] 11/21/23 20:59 50 mg BID VALERIE Administration Ceftriaxone Sodium 2,000 mg/ 50 mls @ 100 mls/hr 10/21/23 02:00 10/25/23 04:43 Dextrose IV 10/31/23 01:59 Infused Q24H [facility] Infusion Protocol Insulin Aspart 0 units 10/21/23 16:30 10/25/23 14:12 Insulin Aspart Per Unit Charge SC 11/20/23 11:59 19 units ACHS VALERIE Administration Insulin Glargine 35 units 10/23/23 21:00 10/25/23 08:59 Lantus Per Unit Charge SQ 11/22/23 20:59 35 units BID VALERIE Administration Lactobacillus Acidophilus 2 cap 10/24/23 09:00 10/25/23 09:00 Advanced Probiotic 1250 Mg Capsule PO 11/23/23 08:59 2 cap DAILY VALERIE Administration Latanoprost 1 drops 10/20/23 21:00 10/24/23 20:56 Latanoprost 0.005% Op Soln 2.5 Ml Btl OP 11/19/23 20:59 1 drops HS VALERIE Administration Levothyroxine Sodium 75 mcg 10/21/23 06:30 10/24/23 05:00 Levothyroxine Sodium 75 Mcg Tablet PO 11/20/23 06:29 75 mcg [id number] VALERIE Administration Levothyroxine Sodium 100 mcg 10/25/23 06:30 10/25/23 05:43 Levothyroxine Sodium 100 Mcg Tablet PO 11/24/23 06:29 100 mcg [email or web address] VALERIE Administration [place] Carbonate 300 mg 10/21/23 21:00 10/24/23 20:52 [place] Carbonate 300 Mg Tab PO 11/20/23 20:59 300 mg HS VALERIE Administration Loperamide HCl 2 mg 10/23/23 14:09 10/25/23 09:00 Loperamide Hcl 2 Mg Cap PO 11/22/23 14:08 2 mg Q6H PRN Administration Diarrhea Losartan Potassium 50 mg 10/21/23 09:00 10/24/23 09:19 Losartan Potassium 50 Mg Tab PO 11/20/23 08:59 50 mg QAM VALERIE Administration Protocol Melatonin 4.5 mg 10/20/23 21:00 10/24/23 20:53 Melatonin 3 Mg Tab PO 11/19/23 20:59 4.5 mg HS VALERIE Administration Mesalamine 4 gm 10/23/23 21:00 10/24/23 23:28 Mesalamine 4 Gm/60 Ml Enema [place] 11/22/23 20:59 Not Given QPM VALERIE Mirtazapine 30 mg 10/21/23 21:00 10/24/23 20:54 Mirtazapine Tab 15 Mg Tab PO 11/20/23 20:59 30 mg HS VALERIE Administration Multivitamins 1 tab 10/21/23 09:00 10/25/23 09:00 Multivitamin Tab PO 11/20/23 08:59 1 tab QAM VALERIE Administration Oxybutynin Chloride 10 mg 10/22/23 21:00 10/24/23 20:53 Oxybutynin Chloride Xl 5 Mg Tabcr PO 11/21/23 20:59 10 mg HS VALERIE Administration Potassium Phosphate 2 tab 10/25/23 09:00 10/25/23 12:58 Pot Phosphate Monobasic W/ Sod Tab PO 10/26/23 08:59 2 tab QID VALERIE Administration Sucralfate 1 gm 10/24/23 09:00 10/25/23 12:59 Sucralfate 1 Gm Tab PO 11/23/23 08:59 1 gm QID VALERIE Administration Thiamine HCl 100 mg 10/21/23 09:00 10/25/23 09:01 Thiamine Hcl 100 Mg Tab PO 11/20/23 08:59 100 mg QAM VALERIE Administration (1) Hypotension Hypotension type: unspecified hypotension type Qualified Code(s): I95.9 - Hypotension, unspecified
[2023-10-25] MEDS: MAGNESIUM SULFATE / D5W 1 GM/100 ML BAG IV SCH ×3 (08:59→12:57)
[2023-10-25] MEDS: LANTUS PER UNIT CHARGE SQ SCH ×2 (08:59→20:52)
[2023-10-25] MEDS: ADVANCED PROBIOTIC 1250 MG CAPSULE PO SCH (09:00)
[2023-10-25] MEDS: LOPERAMIDE HCL 2 MG CAP PO PRN (09:00)
[2023-10-25] MEDS: HYDROCORTISONE ACETATE 25 MG SUPP PR SCH ×2 (09:00→20:51)
[2023-10-25] MEDS: ARIPiprazole 5 MG TAB PO SCH (09:00)
[2023-10-25] MEDS: EZETIMIBE 10 MG TAB PO SCH (09:00)
[2023-10-25] MEDS: MULTIVITAMIN TAB PO SCH (09:00)
[2023-10-25] MEDS: DULoxetine HCL 60 MG CAP PO SCH (09:00)
[2023-10-25] MEDS: GABAPENTIN 100 MG CAP PO SCH ×2 (09:01→20:51)
[2023-10-25] MEDS: CALCIUM CARBONATE 500 MG CHEWABLE TAB PO SCH ×2 (09:01→20:50)
[2023-10-25] MEDS: DICYCLOMINE HCL 10 MG CAP PO SCH ×4 (09:01→20:50)
[2023-10-25] MEDS: THIAMINE HCL 100 MG TAB PO SCH (09:01)
[2023-10-25] MEDS: SUCRALFATE 1 GM TAB PO SCH ×4 (09:02→20:54)
[2023-10-25] MEDS: POT PHOSPHATE MONOBASIC W/ SOD TAB PO SCH ×4 (09:29→20:54)
[2023-10-25] MEDS: INSULIN ASPART PER UNIT CHARGE SC SCH ×4 (10:06→20:51)
[2023-10-25] MEDS: LITHIUM CARBONATE 300 MG TAB PO SCH (20:52)
[2023-10-25] MEDS: MELATONIN 3 MG TAB PO SCH (20:52)
[2023-10-25] MEDS: LATANOPROST 0.005% OP SOLN 2.5 ML BTL OP SCH (20:52)
[2023-10-25] MEDS: OXYBUTYNIN CHLORIDE XL 5 MG TABCR PO SCH (20:53)
[2023-10-25] MEDS: MIRTAZAPINE TAB 15 MG TAB PO SCH (20:53)
[2023-10-25] MEDS: CYCLOBENZAPRINE HCL 10 MG TAB PO PRN (20:56)
[2023-10-26] MEDS: cefTRIAXone SODIUM 2,000 MG in DEXTROSE 5 % MINI-B 50 ML IV SCH (00:59)
[2023-10-26] MEDS: ACETAMINOPHEN 500 MG TAB PO SCH ×4 (05:42→20:47)
[2023-10-26] MEDS: LEVOTHYROXINE SODIUM 75 MCG TABLET PO SCH (05:42)
[2023-10-26 06:23] LABS: Hematocrit (blood only) 27.9 % (37.0-47.0); Hemoglobin 8.4 g/dl (12.0-16.0); Mean Corpuscular Hemoglobin 26.8 pg (25.0-34.0); Mean Corpuscular Hgb Conc 30.1 g/dL (32.0-36.0); Mean Corpuscular Volume 88.9 fL (80.0-100.0); Mean Platelet Volume 8.8 fL (9.4-12.4); Platelet Count 206 K/uL (130-400); RDW Coefficient of Variation 16.2 % (11.5-14.5); RDW Standard Deviation 52.8 fL (36.4-46.3); Red Blood Count 3.14 M/uL (4.20-5.40); White Blood Count 2.69 K/ul (4.8-10.8)
[2023-10-26 06:40] LABS: BUN Creatinine Ratio 42.5 (10-20); Calcium 8.8 mg/dl (8.6-10.3); Creatinine Clr Calc Pharmacy 107.7 ml/min; Est GFR (African American) 116.4 ml/min; Est GFR (Non-African American) 100.5 ml/min; Magnesium 1.5 mg/dl (1.7-2.4); Phosphorus 3.6 mg/dl (2.5-4.9); Potassium 3.5 mmol/L (3.5-5.1)
[2023-10-26] MEDS: LANTUS PER UNIT CHARGE SQ SCH ×2 (08:52→20:45)
[2023-10-26] MEDS: MAGNESIUM SULFATE / D5W 1 GM/100 ML BAG IV SCH ×3 (08:52→13:09)
[2023-10-26] MEDS: CALCIUM CARBONATE 500 MG CHEWABLE TAB PO SCH ×2 (08:53→20:41)
[2023-10-26] MEDS: HYDROCORTISONE ACETATE 25 MG SUPP PR SCH ×2 (08:53→20:42)
[2023-10-26] MEDS: LOPERAMIDE HCL 2 MG CAP PO PRN (08:53)
[2023-10-26] MEDS: CYCLOBENZAPRINE HCL 10 MG TAB PO PRN ×2 (08:53→13:09)
[2023-10-26] MEDS: DULoxetine HCL 60 MG CAP PO SCH (08:54)
[2023-10-26] MEDS: ADVANCED PROBIOTIC 1250 MG CAPSULE PO SCH (08:54)
[2023-10-26] MEDS: GABAPENTIN 100 MG CAP PO SCH ×2 (08:54→20:42)
[2023-10-26] MEDS: SUCRALFATE 1 GM TAB PO SCH ×4 (08:54→20:43)
[2023-10-26] MEDS: EZETIMIBE 10 MG TAB PO SCH (08:54)
[2023-10-26] MEDS: DICYCLOMINE HCL 10 MG CAP PO SCH ×4 (08:55→20:41)
[2023-10-26] MEDS: THIAMINE HCL 100 MG TAB PO SCH (08:55)
[2023-10-26] MEDS: ARIPiprazole 5 MG TAB PO SCH (08:55)
[2023-10-26] MEDS: MULTIVITAMIN TAB PO SCH (08:55)
[2023-10-26] MEDS: MAGNESIUM OXIDE 400 MG TAB PO SCH ×2 (09:01→20:43)
[2023-10-26] MEDS: INSULIN ASPART PER UNIT CHARGE SC SCH ×4 (09:05→20:45)
[2023-10-26] MEDS ORDERED: PHARMACY GLYCEMIC MGMT CONSULT PRN (16:33)
--- NOTE | 2023-10-26 16:35 | Hospitalist Progress Note ---
Date of Service October 26, 2023 Assessment & Plan (1) Hypotension: Plan: Ms. Karla Rowland is a 78 year old woman with history of cirrhosis (undergoing eval), cervical adenocarcinoma s/p chemoradiation c/b radiation proctitis and cystitis who is admitted due to diarrhea and weakness. Patient progressive becoming more weak. Patient was noted to have signs of colitis on imaging, consistent with history of radiation proctitis. Stool PCR negative for C. Diff. Family concerned about patient's ability to care for self, as well as partner's ability to care for patient as he is currently admitted and possibly imminent. Blood pressures have improved, hemoglobin is stable. Currently doing well with flexeril, mesalamine, and HC suppository. #ambulatory dysfunction -PT/OT SNF, ? 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 Coli, ampcillin resistant -Continue CTX at this time while inpatient ( started on Keflex 10/19) will transition to PO upon d/c EOT 10/28) -Probiotics #Cirrhosis, compensated - History of decompensation: none; autoimmune workup negative - MELD-Na: 12 on admission--> 11, stable no further need to trend MELD at this time - Last EGD 2022: mild portal gastropathy, no varices - Last C-Scope [facility], colonoscopy, non-bleeding colonic angioectasis, limited sigmois diverticulosis, / no specimens collected 12/2022 - PSE: No evidence of HE on exam, ammonia WNL - Ascites: none on CT imaging - SBP: No evidence of SBP/ascites on imaging - EV: No evidence of UGIB presently, close monitoring - HRS: Cr at baseline - low Na diet - GI on consult, CTM #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 -CTM #Chronic Iron Deficiency Anemia -Follows Dr. Atkins, receives IV Iron transfusions -Transfuse <7.0 or symptomatic -Follow up OP #Diabetes Type II -A1C 8.1% on admission -Lantus increased 56U, plus sliding scale--trnastioned to BID dosing now 35 U BID -Glycemic consult #Urinary incontinence -Continue oxybutynin 10mg #Epilepsy, tonic clonic #Bipolar disorder -Continue Gabapentin 100/200mg -Continue [place] 300mg -Continue duloxetine 60mg and aripiprazole 5mg -Continue Mirtazipine 30mg #Hypothyroidism -Continue levothyroxine 75mcg PT OT [facility] Social service re: discharge planning, placement DVT prophylaxis. SCDs RE recurrent GI bleed Full code Patient's family requesting updates from providers. Ms. Bessie Ramsey (daughter), contact #[phone]. Admission and Anticipated Discharge Date Admission Date: October 21, 2023 Subjective NAEO Reports feeling better overall Now pending placement Review of Systems Review of Systems: All systems reviewed & are unremarkable except as noted in Subjective Physical Exam Constitutional: WD/WN, vitals as above Respiratory: normal respiratory effort, lungs clear to auscultation Cardiovascular: RRR, no murmur, no edema Gastrointestinal (Abdomen): normal bowel sounds, soft, nontender, no hepatosplenomegaly Results & Data Results & Data Vital Signs (Past 12 Hours) Vital Signs Temp Pulse Pulse Resp BP Pulse Ox O2 Del Method 10/26/23 16:23 36.6 C 74 18 109/62 97 Room Air 10/26/23 07:55 Room Air 10/26/23 07:54 36.7 C 76 17 133/61 96 Room Air 10/26/23 07:10 81 Laboratory Results Short CBC 10/26/23 Range/Units 05:36 WBC 2.69 L (4.8-10.8) K/ul Hgb 8.4 L (12.0-16.0) g/dl Hct 27.9 L (37.0-47.0) % Plt Count 206 (130-400) K/uL BMP 10/26/23 05:36 Sodium 141 Potassium 3.5 Chloride 111 H Carbon Dioxide 24 BUN 17 Creatinine 0.40 L Glucose 123 H Calcium 8.8 Medications Administered Home Medications Medication Instructions Recorded Confirmed Last Taken levothyroxine 25 mcg tablet See Rx Instructions .Route .COMPLEX 12/07/18 10/20/23 10/19/23 (Synthroid) loperamide 2 mg tablet 2 mg PO QID PRN Diarrhea 12/07/18 10/20/23 Unknown metformin 750 mg tablet,extended 1,500 mg PO QAM 12/07/18 10/20/23 10/19/23 release 24 hr mirtazapine 30 mg tablet (Remeron) 30 mg PO HS 12/07/18 10/20/23 10/19/23 thiamine HCl (vitamin B1) 100 mg 100 mg PO QAM 12/07/18 10/20/23 10/20/23 tablet (Vitamin B-1) iron,carbonyl 65 mg-vitamin C 125 1 tab PO QAM 08/30/19 10/20/23 10/20/23 mg tablet,delayed release (Vitron-C) albuterol sulfate 90 mcg/actuation 1 puff inhalation Q6 PRN Wheezing 08/31/19 10/20/23 10/18/23 aerosol inhaler gabapentin 100 mg capsule See Rx Instructions .Route .COMPLEX 09/02/21 10/20/23 10/19/23 insulin glargine 100 unit/mL (3 54 unit subcut HS 09/02/21 10/20/23 10/19/23 mL) subcutaneous pen (Lantus Solostar U-100 Insulin) acetaminophen 325 mg tablet 325 mg PO Q6 PRN Pain 01/12/23 10/20/23 10/18/23 (Tylenol) candesartan 16 mg tablet 16 mg PO QAM 01/12/23 10/20/23 10/20/23 cyanocobalamin (vitamin B-12) 1,000 mcg IM MONTHLY 01/12/23 10/20/23 10/06/23 1,000 mcg/mL injection solution ezetimibe 10 mg tablet (Zetia) 10 mg PO QAM 01/12/23 10/20/23 10/20/23 latanoprost (PF) 0.005 % eye drops 1 drp ophthalmic (eye) HS 01/12/23 10/20/23 10/19/23 lithium carbonate 300 mg tablet 300 mg PO HS 01/12/23 10/20/23 10/19/23 aripiprazole 5 mg tablet 5 mg PO QAM 03/31/23 10/20/23 10/20/23 duloxetine 60 mg capsule,delayed 60 mg PO QAM 03/31/23 10/20/23 10/20/23 release melatonin 5 mg tablet 5 mg PO HS 08/27/23 10/20/23 10/19/23 phenazopyridine 200 mg tablet 200 mg PO Q8H PRN pain #10 tabs 09/03/23 10/20/23 10/19/23 (Pyridium) nystatin 100,000 unit/gram topical 1 applic topical DAILY #30 grams 10/07/23 10/20/23 Unknown powder cephalexin 500 mg capsule 500 mg PO BID 5 days #10 caps 10/19/23 10/20/23 10/20/23 multivitamin 1 tab PO QAM 10/20/23 10/20/23 10/19/23 oxybutynin chloride 10 mg PO HS 10/21/23 10/21/23 Unknown Active Medications Generic Name Dose Route Start Last Admin Trade Name Freq PRN Reason Stop Dose Admin Acetaminophen 500 mg 10/23/23 16:45 10/26/23 10:19 Acetaminophen 500 Mg Tab PO 11/22/23 16:44 500 mg Q6H VALERIE Administration Aripiprazole 5 mg 10/21/23 09:00 10/26/23 08:55 Aripiprazole 5 Mg Tab PO 11/20/23 08:59 5 mg QAM VALERIE Administration Calcium Carbonate 500 mg 10/23/23 10:15 10/26/23 08:53 Calcium Carbonate 500 Mg Chewable Tab PO 11/22/23 10:14 500 mg BID VALERIE Administration Cyclobenzaprine HCl 5 mg 10/25/23 17:45 10/26/23 13:09 Cyclobenzaprine Hcl 10 Mg Tab PO 11/24/23 17:44 5 mg TID PRN Administration cramps/pain Dicyclomine HCl 10 mg 10/23/23 13:00 10/26/23 13:09 Dicyclomine Hcl 10 Mg Cap PO 11/22/23 12:59 10 mg QID VALERIE Administration Duloxetine HCl 60 mg 10/21/23 09:00 10/26/23 08:54 Duloxetine Hcl 60 Mg Cap PO 11/20/23 08:59 60 mg QAM VALERIE Administration Ezetimibe 10 mg 10/21/23 09:00 10/26/23 08:54 Ezetimibe 10 Mg Tab PO 11/20/23 08:59 10 mg QAM VALERIE Administration Gabapentin 100 mg 10/21/23 09:00 10/26/23 08:54 Gabapentin 100 Mg Cap PO 11/20/23 08:59 100 mg QAM VALERIE Administration Gabapentin 200 mg 10/21/23 21:00 10/25/23 20:51 Gabapentin 100 Mg Cap PO 11/20/23 20:59 200 mg HS VALERIE Administration Hydrocortisone 50 mg 10/22/23 21:00 10/26/23 08:53 Hydrocortisone Acetate 25 Mg Supp MO 11/21/23 20:59 50 mg BID VALERIE Administration Ceftriaxone Sodium 2,000 mg/ 50 mls @ 100 mls/hr 10/21/23 02:00 10/26/23 01:34 Dextrose IV 10/31/23 01:59 Infused Q24H VALERIE Infusion Protocol Insulin Aspart 0 units 10/21/23 16:30 10/26/23 13:08 Insulin Aspart Per Unit Charge SC 11/20/23 11:59 18 units ACHS VALERIE Administration Insulin Glargine 40 units 10/26/23 09:00 10/26/23 08:52 Lantus Per Unit Charge SQ 11/25/23 08:59 40 units BID VALERIE Administration Lactobacillus Acidophilus 2 cap 10/24/23 09:00 10/26/23 08:54 Advanced Probiotic 1250 Mg Capsule PO 11/23/23 08:59 2 cap DAILY VALERIE Administration Latanoprost 1 drops 10/20/23 21:00 10/25/23 20:52 Latanoprost 0.005% Op Soln 2.5 Ml Btl OP 11/19/23 20:59 1 drops HS VALERIE Administration Levothyroxine Sodium 75 mcg 10/21/23 06:30 10/26/23 05:42 Levothyroxine Sodium 75 Mcg Tablet PO 11/20/23 06:29 75 mcg [email or web address] VALERIE Administration Levothyroxine Sodium 100 mcg 10/25/23 06:30 10/25/23 05:43 Levothyroxine Sodium 100 Mcg Tablet PO 11/24/23 06:29 100 mcg [email or web address] VALERIE Administration [place] Carbonate 300 mg 10/21/23 21:00 10/25/23 20:52 [place] Carbonate 300 Mg Tab PO 11/20/23 20:59 300 mg HS VALERIE Administration Loperamide HCl 2 mg 10/23/23 14:09 10/26/23 08:53 Loperamide Hcl 2 Mg Cap PO 11/22/23 14:08 2 mg Q6H PRN Administration Diarrhea Losartan Potassium 50 mg 10/21/23 09:00 10/24/23 09:19 Losartan Potassium 50 Mg Tab PO 11/20/23 08:59 50 mg QAM VALERIE Administration Protocol Magnesium Oxide 400 mg 10/26/23 09:00 10/26/23 09:01 Magnesium Oxide 400 Mg Tab PO 11/25/23 08:59 400 mg BID VALERIE Administration Melatonin 4.5 mg 10/20/23 21:00 10/25/23 20:52 Melatonin 3 Mg Tab PO 11/19/23 20:59 4.5 mg HS VALERIE Administration Mirtazapine 30 mg 10/21/23 21:00 10/25/23 20:53 Mirtazapine Tab 15 Mg Tab PO 11/20/23 20:59 30 mg HS VALERIE Administration Multivitamins 1 tab 10/21/23 09:00 10/26/23 08:55 Multivitamin Tab PO 11/20/23 08:59 1 tab QAM VALERIE Administration Oxybutynin Chloride 10 mg 10/22/23 21:00 10/25/23 20:53 Oxybutynin Chloride Xl 5 Mg Tabcr PO 11/21/23 20:59 10 mg HS VALERIE Administration Sucralfate 1 gm 10/24/23 09:00 10/26/23 13:09 Sucralfate 1 Gm Tab PO 11/23/23 08:59 1 gm QID VALERIE Administration Thiamine HCl 100 mg 10/21/23 09:00 10/26/23 08:55 Thiamine Hcl 100 Mg Tab PO 11/20/23 08:59 100 mg QAM VALERIE Administration (1) Hypotension Hypotension type: unspecified hypotension type Qualified Code(s): I95.9 - Hypotension, unspecified
[2023-10-26] MEDS: LITHIUM CARBONATE 300 MG TAB PO SCH (20:42)
[2023-10-26] MEDS: OXYBUTYNIN CHLORIDE XL 5 MG TABCR PO SCH (20:43)
[2023-10-26] MEDS: MIRTAZAPINE TAB 15 MG TAB PO SCH (20:44)
[2023-10-26] MEDS: MELATONIN 3 MG TAB PO SCH (20:47)
[2023-10-26] MEDS: LATANOPROST 0.005% OP SOLN 2.5 ML BTL OP SCH (20:49)
[2023-10-26] MEDS ORDERED: HEPARIN 100 UNIT/ML 5ML FLUSH FLUSH PRN (23:48)
[2023-10-27] MEDS ORDERED: INSULIN ASPART PER UNIT CHARGE SC SCH ×2
[2023-10-27] MEDS: cefTRIAXone SODIUM 2,000 MG in DEXTROSE 5 % MINI-B 50 ML IV SCH (02:01)
[2023-10-27] MEDS: ACETAMINOPHEN 500 MG TAB PO SCH ×4 (05:27→21:30)
[2023-10-27] MEDS: LEVOTHYROXINE SODIUM 75 MCG TABLET PO SCH (06:47)
[2023-10-27 07:04] LABS: Calcium 8.7 mg/dl (8.6-10.3); Creatinine Clr Calc Pharmacy 93.5 ml/min; Est GFR (African American) 111.2 ml/min; Magnesium 1.7 mg/dl (1.7-2.4); Potassium 3.4 mmol/L (3.5-5.1)
[2023-10-27] MEDS: THIAMINE HCL 100 MG TAB PO SCH (09:18)
[2023-10-27] MEDS: DICYCLOMINE HCL 10 MG CAP PO SCH ×4 (09:18→21:30)
[2023-10-27] MEDS: MULTIVITAMIN TAB PO SCH (09:18)
[2023-10-27] MEDS: ARIPiprazole 5 MG TAB PO SCH (09:18)
[2023-10-27] MEDS: EZETIMIBE 10 MG TAB PO SCH (09:18)
[2023-10-27] MEDS: GABAPENTIN 100 MG CAP PO SCH ×2 (09:19→21:31)
[2023-10-27] MEDS: CALCIUM CARBONATE 500 MG CHEWABLE TAB PO SCH ×2 (09:19→21:31)
[2023-10-27] MEDS: DULoxetine HCL 60 MG CAP PO SCH (09:20)
[2023-10-27] MEDS: HYDROCORTISONE ACETATE 25 MG SUPP PR SCH ×2 (09:20→21:31)
[2023-10-27] MEDS: ADVANCED PROBIOTIC 1250 MG CAPSULE PO SCH (09:21)
[2023-10-27] MEDS: SUCRALFATE 1 GM TAB PO SCH ×4 (09:22→21:33)
[2023-10-27] MEDS: MAGNESIUM OXIDE 400 MG TAB PO SCH ×2 (09:22→21:32)
[2023-10-27] MEDS: POTASSIUM CHLORIDE CRTAB 20 MEQ TABCR PO SCH ×2 (09:24→21:34)
[2023-10-27] MEDS: LANTUS PER UNIT CHARGE SQ SCH ×2 (09:31→21:34)
[2023-10-27] MEDS: INSULIN ASPART PER UNIT CHARGE SC SCH ×4 (09:31→21:35)
--- NOTE | 2023-10-27 09:34 | Pharmacy Report ---
Pharmacy Glycemic Short Note 2 - Date of Service October 27, 2023 - Glycemic Short BSG Results (Last 24 hours): 10/26/23 10/26/23 10/26/23 12:22 12:24 17:01 Glucose POC Glucose 326 H* 320 H* 175 H 10/26/23 10/27/23 10/27/23 20:18 06:00 08:27 Glucose 154 H POC Glucose 289 H 151 H OUTPATIENT ANTIDIABETIC REGIMEN: * Lantus 54 units SC HS * Metformin 1500 mg PO qAM HbA1c: 8.1% (10/20/23) ASSESSMENT: * BR is a 78 year old female admitted on 10/20/23 due to inability to care for self at home * BSGs have been quite labile since time of admission, pharmacy consulted on 10/26/23 for glycemic management * Past inpatient glycemic data suggests aggressive weight-based Lantus and Novolog * Novolog parameters tightened last evening, will continue w/ plan to tighten tomorrow AM Novolog parameters * Will continue current dose of basal insulin for today as well * Patient awaiting placement at this time PLAN FOR INPATIENT GLYCEMIC CONTROL: * Hold outpatient oral diabetes medications * Basal insulin * Lantus 40 units SQ BID * Bolus insulin * NovoLog per scale ACHS or Q6hrs while NPO * Goal Range: Low 110 mg/dL - High 140 mg/dL * Correction Factor: 12 mg/dL/unit * Nutritional / Prandial insulin per carb ratio of 1 unit per 4 grams CHO consumed
--- NOTE | 2023-10-27 12:10 | Hospitalist Progress Note ---
Date of Service October 27, 2023 Assessment & Plan (1) Hypotension: Plan: Ms. Karla Rowland is a 78 year old woman with history of cirrhosis (undergoing eval), cervical adenocarcinoma s/p chemoradiation c/b radiation proctitis and cystitis who is admitted due to diarrhea and weakness. Patient progressive becoming more weak. Patient was noted to have signs of colitis on imaging, consistent with history of radiation proctitis. Stool PCR negative for C. Diff. Family concerned about patient's ability to care for self, as well as partner's ability to care for patient as he is currently admitted and possibly imminent. Blood pressures have improved, hemoglobin remains stable. Currently doing well with flexeril and HC suppository. #ambulatory dysfunction -PT/OT SNF, ? intermediate placement--pending rehab at [facility] #Diarrhea, +FOBT #Recurrent GIB #Prior Radiation Proctitis Prior history of gastric ulcer, AVMS, colonic angiectasia, hemorrhoids, diverticulosis, history radiation proctitis as per records Deferred endoscopic eval at this time; Rectal sucralfate not available on formulary -Continue hydrocortisone suppository 50mg BID x 3-6weeks -Discontinue mesalamine 2/2 patient declining -Dicyclomine QID to aid with diarrhea, pepto bismol x 1 + loperamide; reduce to prn upon discharge -Plan for GI follow up OP #Acute cystitis POA -Urine with E. Coli, ampcillin resistant -Continue CTX at this time while inpatient ( started on Keflex 10/19) will transition to PO upon d/c (EOT 10/28) -Probiotics #Cirrhosis, compensated - History of decompensation: none; autoimmune workup negative - MELD-Na: 12 on admission--> 11, stable no further need to trend MELD at this time - Last EGD 2022: mild portal gastropathy, no varices - Last C-Scope [facility], colonoscopy, non-bleeding colonic angioectasis, limited sigmois diverticulosis, / no specimens collected 12/2022 - PSE: No evidence of HE on exam, ammonia WNL - Ascites: none on CT imaging - SBP: No evidence of SBP/ascites on imaging - EV: No evidence of UGIB presently, close monitoring - HRS: Cr at baseline - low Na diet - GI on consult, CTM #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 -CTM #Chronic Iron Deficiency Anemia -Follows Dr. Atkins, receives IV Iron transfusions -Transfuse <7.0 or symptomatic -Follow up OP #Diabetes Type II -A1C 8.1% on admission -Lantus increased 56U, plus sliding scale--trnastioned to BID dosing now 35 U BID -Glycemic consult #Urinary incontinence -Continue oxybutynin 10mg #Epilepsy, tonic clonic #Bipolar disorder -Continue Gabapentin 100/200mg -Continue [place] 300mg -Continue duloxetine 60mg and aripiprazole 5mg -Continue Mirtazipine 30mg #Hypothyroidism -Continue levothyroxine 75mcg PT OT [address] Social service re: discharge planning, placement DVT prophylaxis. SCDs RE recurrent GI bleed Full code Patient's family requesting updates from providers. Ms. Bessie Ramsey (daughter), contact #[phone]. Admission and Anticipated Discharge Date Admission Date: October 21, 2023 Subjective NAEO Reports feeling good and states she is ready for rehab Review of Systems Review of Systems: All systems reviewed & are unremarkable except as noted in Subjective Physical Exam Constitutional: WD/WN, vitals as above Respiratory: normal respiratory effort, lungs clear to auscultation Cardiovascular: RRR, no murmur, no edema Gastrointestinal (Abdomen): normal bowel sounds, soft, nontender, no hepatosplenomegaly Results & Data Results & Data Vital Signs (Past 12 Hours) Vital Signs Temp Pulse Pulse Resp BP Pulse Ox O2 Del Method 10/27/23 11:35 36.5 C 72 17 134/73 98 Room Air 10/27/23 08:17 78 10/27/23 07:52 36.7 C 84 18 134/75 95 Room Air 10/27/23 03:49 36.9 C 64 18 114/63 95 Room Air Laboratory Results [facility] 10/27/23 06:00 Sodium 138 Potassium 3.4 L Chloride 107 Carbon Dioxide 26 BUN 17 Creatinine 0.46 L Glucose 154 H Calcium 8.7 Medications Administered Home Medications Medication Instructions Recorded Confirmed Last Taken levothyroxine 25 mcg tablet See Rx Instructions .Route .COMPLEX 12/07/18 10/20/23 10/19/23 (Synthroid) loperamide 2 mg tablet 2 mg PO QID PRN Diarrhea 12/07/18 10/20/23 Unknown metformin 750 mg tablet,extended 1,500 mg PO QAM 12/07/18 10/20/23 10/19/23 release 24 hr mirtazapine 30 mg tablet (Remeron) 30 mg PO HS 12/07/18 10/20/23 10/19/23 thiamine HCl (vitamin B1) 100 mg 100 mg PO QAM 12/07/18 10/20/23 10/20/23 tablet (Vitamin B-1) iron,carbonyl 65 mg-vitamin C 125 1 tab PO QAM 08/30/19 10/20/23 10/20/23 mg tablet,delayed release (Vitron-C) albuterol sulfate 90 mcg/actuation 1 puff inhalation Q6 PRN Wheezing 08/31/19 10/20/23 10/18/23 aerosol inhaler gabapentin 100 mg capsule See Rx Instructions .Route .COMPLEX 09/02/21 10/20/23 10/19/23 insulin glargine 100 unit/mL (3 54 unit subcut HS 09/02/21 10/20/23 10/19/23 mL) subcutaneous pen (Lantus Solostar U-100 Insulin) acetaminophen 325 mg tablet 325 mg PO Q6 PRN Pain 01/12/23 10/20/23 10/18/23 (Tylenol) candesartan 16 mg tablet 16 mg PO QAM 01/12/23 10/20/23 10/20/23 cyanocobalamin (vitamin B-12) 1,000 mcg IM MONTHLY 01/12/23 10/20/23 10/06/23 1,000 mcg/mL injection solution ezetimibe 10 mg tablet (Zetia) 10 mg PO QAM 01/12/23 10/20/23 10/20/23 latanoprost (PF) 0.005 % eye drops 1 drp ophthalmic (eye) HS 01/12/23 10/20/23 10/19/23 lithium carbonate 300 mg tablet 300 mg PO HS 01/12/23 10/20/23 10/19/23 aripiprazole 5 mg tablet 5 mg PO QAM 03/31/23 10/20/23 10/20/23 duloxetine 60 mg capsule,delayed 60 mg PO QAM 03/31/23 10/20/23 10/20/23 release melatonin 5 mg tablet 5 mg PO HS 08/27/23 10/20/23 10/19/23 phenazopyridine 200 mg tablet 200 mg PO Q8H PRN pain #10 tabs 09/03/23 10/20/23 10/19/23 (Pyridium) nystatin 100,000 unit/gram topical 1 applic topical DAILY #30 grams 10/07/23 10/20/23 Unknown powder cephalexin 500 mg capsule 500 mg PO BID 5 days #10 caps 10/19/23 10/20/23 10/20/23 multivitamin 1 tab PO QAM 10/20/23 10/20/23 10/19/23 oxybutynin chloride 10 mg PO HS 10/21/23 10/21/23 Unknown Active Medications Generic Name Dose Route Start Last Admin Trade Name Freq PRN Reason Stop Dose Admin Acetaminophen 500 mg 10/23/23 16:45 10/27/23 05:27 Acetaminophen 500 Mg Tab PO 11/22/23 16:44 500 mg Q6H VALERIE Administration Aripiprazole 5 mg 10/21/23 09:00 10/27/23 09:18 Aripiprazole 5 Mg Tab PO 11/20/23 08:59 5 mg QAM VALERIE Administration Calcium Carbonate 500 mg 10/23/23 10:15 10/27/23 09:19 Calcium Carbonate 500 Mg Chewable Tab PO 11/22/23 10:14 500 mg BID VALERIE Administration Cyclobenzaprine HCl 5 mg 10/25/23 17:45 10/26/23 13:09 Cyclobenzaprine Hcl 10 Mg Tab PO 11/24/23 17:44 5 mg TID PRN Administration cramps/pain Dicyclomine HCl 10 mg 10/23/23 13:00 10/27/23 09:18 Dicyclomine Hcl 10 Mg Cap PO 11/22/23 12:59 10 mg QID VALERIE Administration Duloxetine HCl 60 mg 10/21/23 09:00 10/27/23 09:20 Duloxetine Hcl 60 Mg Cap PO 11/20/23 08:59 60 mg QAM VALERIE Administration Ezetimibe 10 mg 10/21/23 09:00 10/27/23 09:18 Ezetimibe 10 Mg Tab PO 11/20/23 08:59 10 mg QAM VALERIE Administration Gabapentin 100 mg 10/21/23 09:00 10/27/23 09:19 Gabapentin 100 Mg Cap PO 11/20/23 08:59 100 mg QAM VALERIE Administration Gabapentin 200 mg 10/21/23 21:00 10/26/23 20:42 Gabapentin 100 Mg Cap PO 11/20/23 20:59 200 mg HS VALERIE Administration Hydrocortisone 50 mg 10/22/23 21:00 10/27/23 09:20 Hydrocortisone Acetate 25 Mg Supp ME 11/21/23 20:59 50 mg BID VALERIE Administration Ceftriaxone Sodium 2,000 mg/ 50 mls @ 100 mls/hr 10/21/23 02:00 10/27/23 02:48 Dextrose IV 10/31/23 01:59 Infused Q24H VALERIE Infusion Protocol Insulin Aspart 0 units 10/21/23 16:30 10/27/23 09:31 Insulin Aspart Per Unit Charge SC 11/20/23 11:59 7 units ACHS VALERIE Administration Insulin Glargine 40 units 10/26/23 09:00 10/27/23 09:31 Lantus Per Unit Charge SQ 11/25/23 08:59 40 units BID VALERIE Administration Lactobacillus Acidophilus 2 cap 10/24/23 09:00 10/27/23 09:21 Advanced Probiotic 1250 Mg Capsule PO 11/23/23 08:59 2 cap DAILY VALERIE Administration Latanoprost 1 drops 10/20/23 21:00 10/26/23 20:49 Latanoprost 0.005% Op Soln 2.5 Ml Btl OP 11/19/23 20:59 1 drops HS VALERIE Administration Levothyroxine Sodium 75 mcg 10/21/23 06:30 10/27/23 06:47 Levothyroxine Sodium 75 Mcg Tablet PO 11/20/23 06:29 75 mcg [id number] VALERIE Administration Levothyroxine Sodium 100 mcg 10/25/23 06:30 10/25/23 05:43 Levothyroxine Sodium 100 Mcg Tablet PO 11/24/23 06:29 100 mcg [email or web address] VALERIE Administration [place] Carbonate 300 mg 10/21/23 21:00 10/26/23 20:42 [place] Carbonate 300 Mg Tab PO 11/20/23 20:59 300 mg HS VALERIE Administration Loperamide HCl 2 mg 10/23/23 14:09 10/26/23 08:53 Loperamide Hcl 2 Mg Cap PO 11/22/23 14:08 2 mg Q6H PRN Administration Diarrhea Losartan Potassium 50 mg 10/21/23 09:00 10/24/23 09:19 Losartan Potassium 50 Mg Tab PO 11/20/23 08:59 50 mg QAM VALERIE Administration Protocol Magnesium Oxide 400 mg 10/26/23 09:00 10/27/23 09:22 Magnesium Oxide 400 Mg Tab PO 11/25/23 08:59 400 mg BID VALERIE Administration Melatonin 4.5 mg 10/20/23 21:00 10/26/23 20:47 Melatonin 3 Mg Tab PO 11/19/23 20:59 4.5 mg HS VALERIE Administration Mirtazapine 30 mg 10/21/23 21:00 10/26/23 20:44 Mirtazapine Tab 15 Mg Tab PO 11/20/23 20:59 30 mg HS VALERIE Administration Multivitamins 1 tab 10/21/23 09:00 10/27/23 09:18 Multivitamin Tab PO 11/20/23 08:59 1 tab QAM VALERIE Administration Oxybutynin Chloride 10 mg 10/22/23 21:00 10/26/23 20:43 Oxybutynin Chloride Xl 5 Mg Tabcr PO 11/21/23 20:59 10 mg HS VALERIE Administration Potassium Chloride 20 meq 10/27/23 09:00 10/27/23 09:24 Potassium Chloride Crtab 20 Meq Tabcr PO 11/26/23 08:59 20 meq BID VALERIE Administration Sucralfate 1 gm 10/24/23 09:00 10/27/23 09:22 Sucralfate 1 Gm Tab PO 11/23/23 08:59 1 gm QID VALERIE Administration Thiamine HCl 100 mg 10/21/23 09:00 10/27/23 09:18 Thiamine Hcl 100 Mg Tab PO 11/20/23 08:59 100 mg QAM VALERIE Administration (1) Hypotension Hypotension type: unspecified hypotension type Qualified Code(s): I95.9 - Hypotension, unspecified
[2023-10-27] MEDS: MIRTAZAPINE TAB 15 MG TAB PO SCH (21:31)
[2023-10-27] MEDS: LATANOPROST 0.005% OP SOLN 2.5 ML BTL OP SCH (21:32)
[2023-10-27] MEDS: LITHIUM CARBONATE 300 MG TAB PO SCH (21:32)
[2023-10-27] MEDS: OXYBUTYNIN CHLORIDE XL 5 MG TABCR PO SCH (21:32)
[2023-10-27] MEDS: MELATONIN 3 MG TAB PO SCH (21:34)
[2023-10-28] MEDS: cefTRIAXone SODIUM 2,000 MG in DEXTROSE 5 % MINI-B 50 ML IV SCH (03:23)
[2023-10-28] MEDS: LEVOTHYROXINE SODIUM 75 MCG TABLET PO SCH (05:53)
[2023-10-28] MEDS: ACETAMINOPHEN 500 MG TAB PO SCH ×3 (05:53→17:53)
[2023-10-28 06:46] LABS: BUN Creatinine Ratio 33.3 (10-20); Creatinine Clr Calc Pharmacy 83.9 ml/min; Est GFR (African American) 107.5 ml/min; Est GFR (Non-African American) 92.8 ml/min; Potassium 3.9 mmol/L (3.5-5.1)
[2023-10-28] MEDS ORDERED: MICONAZOLE NITRATE POWDER 85 GM EXT PRN (07:29)
[2023-10-28] MEDS: HYDROCORTISONE ACETATE 25 MG SUPP PR SCH ×2 (08:26→21:21)
[2023-10-28] MEDS: MAGNESIUM OXIDE 400 MG TAB PO SCH ×2 (08:26→21:24)
[2023-10-28] MEDS: DICYCLOMINE HCL 10 MG CAP PO SCH ×4 (08:26→21:20)
[2023-10-28] MEDS: ARIPiprazole 5 MG TAB PO SCH (08:26)
[2023-10-28] MEDS: GABAPENTIN 100 MG CAP PO SCH ×2 (08:27→21:19)
[2023-10-28] MEDS: THIAMINE HCL 100 MG TAB PO SCH (08:27)
[2023-10-28] MEDS: CALCIUM CARBONATE 500 MG CHEWABLE TAB PO SCH ×2 (08:27→21:22)
[2023-10-28] MEDS: POTASSIUM CHLORIDE CRTAB 20 MEQ TABCR PO SCH ×2 (08:27→21:24)
[2023-10-28] MEDS: EZETIMIBE 10 MG TAB PO SCH (08:27)
[2023-10-28] MEDS: ADVANCED PROBIOTIC 1250 MG CAPSULE PO SCH (08:27)
[2023-10-28] MEDS: SUCRALFATE 1 GM TAB PO SCH ×4 (08:27→21:20)
[2023-10-28] MEDS: DULoxetine HCL 60 MG CAP PO SCH (08:27)
[2023-10-28] MEDS: MULTIVITAMIN TAB PO SCH (08:27)
[2023-10-28] MEDS ORDERED: LANTUS PER UNIT CHARGE SQ SCH (09:00)
[2023-10-28] MEDS: INSULIN ASPART PER UNIT CHARGE SC SCH ×4 (09:09→21:06)
--- NOTE | 2023-10-28 13:11 | Pharmacy Report ---
Pharmacy Glycemic Short Note 2 - Date of Service October 28, 2023 - Glycemic Short BSG Results (Last 24 hours): 10/27/23 10/27/23 10/28/23 17:17 20:07 05:51 Glucose 172 H POC Glucose 161 H 230 H 10/28/23 10/28/23 08:27 11:56 Glucose POC Glucose 237 H 259 H OUTPATIENT ANTIDIABETIC REGIMEN: * Lantus 54 units SC HS * Metformin 1500 mg PO qAM HbA1c: 8.1% (10/20/23) ASSESSMENT: 10/28/23: * BSGs elevated yesterday, ranging 151-289 mg/dL w/ worsening fasting BSG this morning (237 mg/dL) * Received 128 units of insulin (80 units of basal and 48 units of prandial/correctional bolus) * Will further tighten Novolog today and increase basal insulin * Continues on hydrocortisone 50 mg NV BID 10/27/23: * BR is a 78 year old female admitted on 10/20/23 due to inability to care for self at home * BSGs have been quite labile since time of admission, pharmacy consulted on 10/26/23 for glycemic management * Past inpatient glycemic data suggests aggressive weight-based Lantus and Novolog * Novolog parameters tightened last evening, will continue w/ plan to tighten tomorrow AM Novolog parameters * Will continue current dose of basal insulin for today as well * Patient awaiting placement at this time PLAN FOR INPATIENT GLYCEMIC CONTROL: * Hold outpatient oral diabetes medications * Basal insulin * Lantus 40-50 units SQ BID (see EHR for details) * Bolus insulin * NovoLog per scale ACHS or Q6hrs while NPO * Goal Range: Low 110 mg/dL - High 140 mg/dL * Correction Factor: 10 mg/dL/unit * Nutritional / Prandial insulin per carb ratio of 1 unit per 3 grams CHO consumed
--- NOTE | 2023-10-28 14:34 | Hospitalist Progress Note ---
Date of Service October 28, 2023 Assessment & Plan (1) Hypotension: Plan: Per previous attending notes with addendum Ms. Karla Rowland is a 78 year old woman with history of cirrhosis (undergoing eval), cervical adenocarcinoma s/p chemoradiation c/b radiation proctitis and cystitis who is admitted due to diarrhea and weakness. Patient progressive becoming more weak. Patient was noted to have signs of colitis on imaging, consistent with history of radiation proctitis. Stool PCR negative for C. Diff. Family concerned about patient's ability to care for self, as well as partner's ability to care for patient as he is currently admitted and possibly imminent. Blood pressures have improved, hemoglobin remains stable. Currently doing well with flexeril and HC suppository. #ambulatory dysfunction -PT/OT SNF, ? buttermaker placement--pending rehab at [facility] #Diarrhea, +FOBT #Recurrent GIB #Prior Radiation Proctitis Prior history of gastric ulcer, AVMS, colonic angiectasia, hemorrhoids, diverticulosis, history radiation proctitis as per records Deferred endoscopic eval at this time; Rectal sucralfate not available on formulary -Continue hydrocortisone suppository 50mg BID x 3-6weeks -Discontinue mesalamine 2/2 patient declining -Dicyclomine QID to aid with diarrhea, pepto bismol x 1 + loperamide; reduce to prn upon discharge -Plan for GI follow up OP 10/28 Diarrhea improving #Acute cystitis POA -Urine with E. Coli, Ampicillin resistant -Continue CTX at this time while inpatient ( started on Keflex 10/19) will transition to PO upon d/c (EOT 10/28) -Probiotics 10/28 Continue ceftriaxone IV, last day tomorrow #Cirrhosis, compensated - History of decompensation: none; autoimmune workup negative - MELD-Na: 12 on admission--> 11, stable no further need to trend MELD at this time - Last EGD 2022: mild portal gastropathy, no varices - Last C-Scope [facility], colonoscopy, non-bleeding colonic angioectasis, limited sigmois diverticulosis, / no specimens collected 12/2022 - PSE: No evidence of HE on exam, ammonia WNL - Ascites: none on CT imaging - SBP: No evidence of SBP/ascites on imaging - EV: No evidence of UGIB presently, close monitoring - HRS: Cr at baseline - low Na diet - GI on consult, CTM #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 -Resolved #Chronic Iron Deficiency Anemia -Follows Dr. Atkins, receives IV Iron transfusions -Transfuse <7.0 or symptomatic -Follow up OP #Diabetes Type II -A1C 8.1% on admission -Lantus increased 56U, plus sliding scale--trnastioned to BID dosing now 35 U BID -Glycemic consult #Urinary incontinence -Continue oxybutynin 10mg #Epilepsy, tonic clonic #Bipolar disorder -Continue Gabapentin 100/200mg -Continue [place] 300mg -Continue duloxetine 60mg and aripiprazole 5mg -Continue Mirtazipine 30mg #Hypothyroidism -Continue levothyroxine 75mcg PT OT evct Social service re: discharge planning, placement DVT prophylaxis. SCDs RE recurrent GI bleed Full code Patient's family requesting updates from providers. Ms. Bessie Ramsey (daughter), contact #[phone]. Admission and Anticipated Discharge Date Admission Date: October 21, 2023 Subjective Follow-up for diarrhea, etc. Seen resting in bed, comfortable, in good spirits States she feels fine overall Still having diarrhea but less, no abdominal pain, nausea vomiting, fevers or chills No other new symptoms Review of Systems Review of Systems: all noted and negative except for above Physical Exam Physical Exam: General- oriented x 3, not in distress, speaks in sentences with no effort or accessory muscle use Eyes- anicteric Neck- no JVD Lungs- clear breath sounds bilaterally, no rales/wheezes Heart- normal rate, regular rhythm; no murmurs Abdomen- normal bowel sounds, nondistended, soft, nontender Extremities- no pretibial edema, no calf tenderness Neuro- alert, oriented x 3; no gross focal neurologic deficits Skin- warm & dry Results & Data Results & Data Vital Signs (Past 12 Hours) Vital Signs Temp Pulse Pulse Resp BP BP Pulse Ox 10/28/23 11:30 36.9 C 71 18 104/61 97 10/28/23 10:43 10/28/23 07:56 37.4 C 63 18 106/62 98 10/28/23 07:46 95 H 10/28/23 03:38 37.0 C 67 18 104/67 96 O2 Del Method 10/28/23 11:30 Room Air 10/28/23 10:43 Room Air 10/28/23 07:56 Room Air 10/28/23 07:46 10/28/23 03:38 Room Air all noted and reviewed including below (1) Hypotension Hypotension type: unspecified hypotension type Qualified Code(s): I95.9 - Hypotension, unspecified
[2023-10-28] MEDS: LANTUS PER UNIT CHARGE SQ SCH (21:07)
[2023-10-28] MEDS: CYCLOBENZAPRINE HCL 10 MG TAB PO PRN (21:23)
[2023-10-28] MEDS: LITHIUM CARBONATE 300 MG TAB PO SCH (21:23)
[2023-10-28] MEDS: MELATONIN 3 MG TAB PO SCH (21:23)
[2023-10-28] MEDS: MIRTAZAPINE TAB 15 MG TAB PO SCH (21:23)
[2023-10-28] MEDS: LATANOPROST 0.005% OP SOLN 2.5 ML BTL OP SCH (21:24)
[2023-10-28] MEDS: OXYBUTYNIN CHLORIDE XL 5 MG TABCR PO SCH (21:24)
[2023-10-29] MEDS: ACETAMINOPHEN 500 MG TAB PO SCH ×3 (00:47→12:14)
[2023-10-29] MEDS: INSULIN ASPART PER UNIT CHARGE SC SCH ×4 (01:04→13:44)
[2023-10-29] MEDS: cefTRIAXone SODIUM 2,000 MG in DEXTROSE 5 % MINI-B 50 ML IV SCH (02:58)
[2023-10-29] MEDS: LEVOTHYROXINE SODIUM 75 MCG TABLET PO SCH (05:47)
[2023-10-29] MEDS: MULTIVITAMIN TAB PO SCH (08:54)
[2023-10-29] MEDS: GABAPENTIN 100 MG CAP PO SCH (08:54)
[2023-10-29] MEDS: EZETIMIBE 10 MG TAB PO SCH (08:54)
[2023-10-29] MEDS: ADVANCED PROBIOTIC 1250 MG CAPSULE PO SCH (08:54)
[2023-10-29] MEDS: DULoxetine HCL 60 MG CAP PO SCH (08:54)
[2023-10-29] MEDS: THIAMINE HCL 100 MG TAB PO SCH (08:54)
[2023-10-29] MEDS: DICYCLOMINE HCL 10 MG CAP PO SCH ×2 (08:54→12:15)
[2023-10-29] MEDS: CALCIUM CARBONATE 500 MG CHEWABLE TAB PO SCH (08:54)
[2023-10-29] MEDS: MAGNESIUM OXIDE 400 MG TAB PO SCH (08:54)
[2023-10-29] MEDS: ARIPiprazole 5 MG TAB PO SCH (08:54)
[2023-10-29] MEDS: HYDROCORTISONE ACETATE 25 MG SUPP PR SCH (08:55)
[2023-10-29] MEDS: POTASSIUM CHLORIDE CRTAB 20 MEQ TABCR PO SCH (08:55)
[2023-10-29] MEDS: SUCRALFATE 1 GM TAB PO SCH ×2 (08:55→12:15)
[2023-10-29] MEDS: LANTUS PER UNIT CHARGE SQ SCH (09:03)
--- NOTE | 2023-10-29 14:21 | Hospitalist Progress Note ---
Date of Service October 29, 2023 Assessment & Plan (1) Hypotension: Plan: Per previous attending notes with addendum Ms. Karla Rowland is a 78 year old woman with history of cirrhosis (undergoing eval), cervical adenocarcinoma s/p chemoradiation c/b radiation proctitis and cystitis who is admitted due to diarrhea and weakness. Patient progressive becoming more weak. Patient was noted to have signs of colitis on imaging, consistent with history of radiation proctitis. Stool PCR negative for C. Diff. Family concerned about patient's ability to care for self, as well as partner's ability to care for patient as he is currently admitted and possibly imminent. Blood pressures have improved, hemoglobin remains stable. Currently doing well with flexeril and HC suppository. DIARRHEA, HISTORY OF RADIATION PROCTITIS Prior history of gastric ulcer, AVMS, colonic angiectasia, hemorrhoids, diverticulosis, history radiation proctitis as per records -Deferred endoscopic eval at this time; Rectal sucralfate not available on formulary -Continue hydrocortisone suppository 50mg BID x 3-6weeks -Discontinue mesalamine 2/2 patient declining -Dicyclomine QID to aid with diarrhea, pepto bismol x 1 + loperamide; reduce to prn upon discharge -Plan for GI follow up OP 10/29 Has 2 BMs per day Continue hydrocortisone suppository x2 more weeks As needed Bentyl, loperamide ACUTE CYSTITIS POA -Urine with E. Coli, Ampicillin resistant Completed course of IV ceftriaxone Probiotics daily CIRRHOSIS, COMPENSATED - History of decompensation: none; autoimmune workup negative - MELD-Na: 12 on admission--> 11, stable no further need to trend MELD at this time - Last EGD 2022: mild portal gastropathy, no varices - Last C-Scope [facility], colonoscopy, non-bleeding colonic angioectasis, limited sigmois diverticulosis, / no specimens collected 12/2022 - PSE: No evidence of HE on exam, ammonia WNL - Ascites: none on CT imaging - SBP: No evidence of SBP/ascites on imaging - EV: No evidence of UGIB presently, close monitoring - HRS: Cr at baseline - low Na diet GI consulted #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 -Resolved #ambulatory dysfunction -[facility] #Chronic Iron Deficiency Anemia -Follows Dr. Atkins, receives IV Iron transfusions -Transfuse <7.0 or symptomatic -Follow up OP #Diabetes Type II -A1C 8.1% on admission -Lantus increased 56U, plus sliding scale--transition to BID dosing now 35 U BID -Glycemic consult #Urinary incontinence -Continue oxybutynin 10mg #Epilepsy, tonic clonic #Bipolar disorder -Continue Gabapentin 100/200mg -Continue [place]hrhardt 300mg -Continue duloxetine 60mg and aripiprazole 5mg -Continue Mirtazipine 30mg #Hypothyroidism -Continue levothyroxine 75mcg PT OT eval Social service re: discharge planning, placement DVT prophylaxis. SCDs RE recurrent GI bleed Disposition [facility] to [facility] facility Follow-up with PCP in 1 week Admission and Anticipated Discharge Date Admission Date: October 21, 2023 Subjective Follow-up for diarrhea, etc. Seen resting in bed, comfortable, watching TV, in good spirits States she feels fine overall Denies abdominal pain, has 2 soft bowel movements per day so far No other new symptoms Review of Systems Review of Systems: all noted and negative except for above Physical Exam Physical Exam: General- oriented x 2, not in distress, speaks in sentences with no effort or accessory muscle use Eyes- anicteric Neck- no JVD Lungs- clear breath sounds bilaterally, no rales/wheezes Heart- normal rate, regular rhythm; no murmurs Abdomen- normal bowel sounds, nondistended, soft, nontender Extremities- no pretibial edema, no calf tenderness Neuro- alert, oriented x 2; no gross focal neurologic deficits Skin- warm & dry Results & Data Results & Data Vital Signs (Past 12 Hours) Vital Signs Temp Pulse Pulse Resp BP Pulse Ox O2 Del Method 10/29/23 12:26 80 10/29/23 12:26 Room Air 10/29/23 07:30 37.0 C 79 16 120/65 96 Room Air 10/29/23 03:00 37.1 C 80 18 112/58 L 93 Room Air all noted and reviewed including below (1) Hypotension Hypotension type: unspecified hypotension type Qualified Code(s): I95.9 - Hypotension, unspecified
--- NOTE | 2023-10-29 14:56 | Discharge Summary ---
Discharge Summary Date of Service October 29, 2023 Admission HPI Per Admitting Provider History obtained from patient, family, and records. Limited history from patient secondary to disorientation. Medical history significant for hypertension, DM2 insulin requiring, history of seizure disorder as per records, history of traumatic SAH, history of hypothyroidism, COPD, hx cervical cancer status post chemoradiation, cirrhosis, hx recurrent GI bleed (gastric ulcer, AVMS, colonic angiectasia, hemorrhoids, diverticulosis, history radiation proctitis as per records, LUTS on oxybutynin, ADD/bipolar disorder/OCD as per records, chronic anemia (baseline hemoglobin of 8-9), past tobacco abuse, Recent confinement March 2023 for metabolic encephalopathy secondary to sepsis secondary to pyelonephritis. Patient noted to be weak and and tired last week. Infection on recent outpatient UA for which Keflex was prescribed. Patient currently confined in the hospital and will likely be discharged on palliative care. Family worried that patient will be able to care for patient. Family decided on long-term placement for patient. Patient brought to the ER to facilitate process. Patient denies headache, chest pain, SOB, abdominal pain, diarrhea, black stools, bloody stools. SBP 90s upon arrival at the ER. MEDICAL HISTORY: As above. 2022 EGD showed mild portal hypertensive gastropathy. No varices. 2022 colonoscopy showed localized angioectasias ascending and transverse colon, rectum, sigmoid diverticulosis SURGICAL HISTORY: Appendectomy, shoulder surgery, catheter placement, dental surgery, BTL, femoral surgery, shoulder surgery, gynecologic procedures, urologic procedures FAMILY HISTORY: heart disease. PERSONAL AND SOCIAL HISTORY:Past tobacco abuse, occasional EtOH intake denies abuse. Lives with her , family business. Principal Dx & Hospital Course #1 = Principal Diagnosis (1) Hypotension: Per previous attending notes with addendum Ms. Karla Rowland is a 78 year old woman with history of cirrhosis (undergoing eval), cervical adenocarcinoma s/p chemoradiation c/b radiation proctitis and cystitis who is admitted due to diarrhea and weakness. Patient progressive becoming more weak. Patient was noted to have signs of colitis on imaging, consistent with history of radiation proctitis. Stool PCR negative for C. Diff. Family concerned about patient's ability to care for self, as well as partner's ability to care for patient as he is currently admitted and possibly imminent. Blood pressures have improved, hemoglobin remains stable. Currently doing well with flexeril and HC suppository. DIARRHEA, HISTORY OF RADIATION PROCTITIS Prior history of gastric ulcer, AVMS, colonic angiectasia, hemorrhoids, diverticulosis, history radiation proctitis as per records -Deferred endoscopic eval at this time; Rectal sucralfate not available on formulary -Continue hydrocortisone suppository 50mg BID x 3-6weeks -Discontinue mesalamine 2/2 patient declining -Dicyclomine QID to aid with diarrhea, pepto bismol x 1 + loperamide; reduce to prn upon discharge -Plan for GI follow up OP 10/29 Has 2 BMs per day Continue hydrocortisone suppository x2 more weeks As needed Bentyl, loperamide ACUTE CYSTITIS POA -Urine with E. Coli, Ampicillin resistant Completed course of IV ceftriaxone Probiotics daily CIRRHOSIS, COMPENSATED - History of decompensation: none; autoimmune workup negative - MELD-Na: 12 on admission--> 11, stable no further need to trend MELD at this time - Last EGD 2022: mild portal gastropathy, no varices - Last C-Scope [facility], colonoscopy, non-bleeding colonic angioectasis, limited sigmois diverticulosis, / no specimens collected 12/2022 - PSE: No evidence of HE on exam, ammonia WNL - Ascites: none on CT imaging - SBP: No evidence of SBP/ascites on imaging - EV: No evidence of UGIB presently, close monitoring - HRS: Cr at baseline - low Na diet GI consulted #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 -Resolved #ambulatory dysfunction -Transition to [facility] facility #Chronic Iron Deficiency Anemia -Follows Dr. Atkins, receives IV Iron transfusions -Transfuse <7.0 or symptomatic -Follow up OP #Diabetes Type II -A1C 8.1% on admission -Lantus increased 56U, plus sliding scale--transition to BID dosing now 35 U BID -Glycemic consult #Urinary incontinence -Continue oxybutynin 10mg #Epilepsy, tonic clonic #Bipolar disorder -Continue Gabapentin 100/200mg -Continue [place] 300mg -Continue duloxetine 60mg and aripiprazole 5mg -Continue Mirtazipine 30mg #Hypothyroidism -Continue levothyroxine 75mcg PT OT evva Social service re: discharge planning, placement DVT prophylaxis. SCDs RE recurrent GI bleed Disposition Transition to [facility] facility Follow-up with PCP in 1 week Updated Medication List Medication Instructions Recorded Confirmed Type loperamide 2 mg tablet 2 mg PO QID PRN Diarrhea 12/07/18 10/20/23 History mirtazapine 30 mg tablet (Remeron) 30 mg PO HS 12/07/18 10/20/23 History thiamine HCl (vitamin B1) 100 mg 100 mg PO QAM 12/07/18 10/20/23 History tablet (Vitamin B-1) iron,carbonyl 65 mg-vitamin C 125 1 tab PO QAM 08/30/19 10/20/23 History mg tablet,delayed release (Vitron-C) gabapentin 100 mg capsule See Rx Instructions .Route .COMPLEX 09/02/21 10/20/23 History acetaminophen 325 mg tablet 325 mg PO Q6 PRN Pain 01/12/23 10/20/23 History (Tylenol) candesartan 16 mg tablet 16 mg PO QAM 01/12/23 10/20/23 History cyanocobalamin (vitamin B-12) 1,000 mcg IM MONTHLY 01/12/23 10/20/23 History 1,000 mcg/mL injection solution ezetimibe 10 mg tablet (Zetia) 10 mg PO QAM 01/12/23 10/20/23 History latanoprost (PF) 0.005 % eye drops 1 drp ophthalmic (eye) HS 01/12/23 10/20/23 History lithium carbonate 300 mg tablet 300 mg PO HS 01/12/23 10/20/23 History aripiprazole 5 mg tablet 5 mg PO QAM 03/31/23 10/20/23 History duloxetine 60 mg capsule,delayed 60 mg PO QAM 03/31/23 10/20/23 History release melatonin 5 mg tablet 5 mg PO HS 08/27/23 10/20/23 History phenazopyridine 200 mg tablet 200 mg PO Q8H PRN pain #10 tabs 09/03/23 10/20/23 Rx (Pyridium) nystatin 100,000 unit/gram topical 1 applic topical DAILY #30 grams 10/07/23 10/20/23 Rx powder multivitamin 1 tab PO QAM 10/20/23 10/20/23 History oxybutynin chloride 10 mg PO HS 10/21/23 10/21/23 History L.acidop,casei,lactis,rham-B.lact,ricardo 2 cap PO DAILY #30 caps 10/29/23 Rx 625 mg (10 billion cell) capsule (Advanced Probiotic) calcium carbonate 200 mg calcium 500 mg (2.5 x 200 mg calcium (500 10/29/23 Rx (500 mg) chewable tablet (Tums) mg)) PO BID PRN dyspepsia #20 tabs dicyclomine 10 mg capsule 10 mg PO QID PRN abdominal pain 10/29/23 Rx #20 caps hydrocortisone acetate 25 mg 50 mg WI BID 21 days #24 ea 10/29/23 Rx rectal suppository (Anucort-HC) insulin aspart U-100 100 unit/mL 1 unit (0.01 mL) SC ACHS #10 mL 10/29/23 Rx subcutaneous solution (Novolog U-100 Insulin aspart) insulin glargine 100 unit/mL 40 unit (0.4 mL) subcut BID #10 mL 10/29/23 Rx subcutaneous solution (Lantus U-100 Insulin) levothyroxine 100 mcg tablet 100 mcg PO Delgado@0630 30 days #5 tabs 10/29/23 Rx (Synthroid) levothyroxine 75 mcg tablet 75 mcg PO MoTuWeThFrSa@0630 30 10/29/23 Rx (Synthroid) days #26 tabs loperamide 2 mg capsule 2 mg PO Q6H PRN loose stool #20 10/29/23 Rx caps miconazole nitrate 2 % topical 1 applic EXT PRN PRN YEAST INFEC 10/29/23 Rx powder (Desenex) #85 grams oxybutynin chloride 5 mg 10 mg (2 x 5 mg) PO HS 30 days #60 10/29/23 Rx tablet,extended release 24 hr tabs potassium chloride 20 mEq 20 meq PO BID 7 days #14 tabs 10/29/23 Rx tablet,extended release(part/cryst) Hospital Stay Data Consultations 10/20/23 19:04 ED Decision to Admit Stat 10/21/23 11:13 Consult Gastroenterology Routine Diagnostic Imagining Performed 10/21/23 01:39 CT abd pelvis IV con only Urgent Pending Results Patient Have Any Pending Studies at Discharge: No Discharge Instructions Given to Patient (Per Discharging Provider) PLEASE REFER TO YOUR NEW MEDICATION LIST AND FOLLOW INSTRUCTIONS CAREFULLY. YOUR NEW MEDICATIONS INCLUDE: Hydrocortisone suppository x3 weeks As needed dicyclomine, Tums Probiotics daily Insulin Lantus, insulin sliding scale PLEASE CALL YOUR PRIMARY CARE PHYSICIAN OR RETURN TO THE ER IF WITH WORSENING OF SYMPTOMS, INCLUDING Diarrhea, blood in the stools, abdominal pain, nausea or vomiting, fevers or chills, etc. FOLLOW UP WITH PRIMARY CARE PHYSICIAN IN 1 WEEK.
== END 2023-10-29 15:36 | DRG 394 ==
LOC: EDINP 15:58 → ED 15:58 → 2N 10-21 00:03 → SUATTDRO 10-21 06:58 → 2N 10-21 15:23

== ENCOUNTER 2023-11-18 09:41 | Inpatient (IN) ==
[2023-11-18] MEDS ORDERED: ONDANSETRON INJ 2 MG/ML 2 ML VIAL IV STA (10:03)
[2023-11-18] MEDS ORDERED: SODIUM CHLORIDE 0.9% 1,000 ML IV ONE ×2 (10:03→11:30)
[2023-11-18] MEDS ORDERED: cefTRIAXone SODIUM 2,000 MG/50 ML BAG IV STA (10:04)
--- NOTE | 2023-11-18 10:06 | Emergency Department Note ---
Impression & Plan Acute pyelonephritis, Acute hyperglycemia, Acute dehydration, Hypomagnesemia ED Provider Note NAME: GLYNN DIAZ AGE: 78 SEX: F : 1945 ARRIVES VIA: Ambulance INFORMANT: Patient, EMS ED PROVIDER(S): Lenin Parks DO CHIEF COMPLAINT: Weakness HPI: The patient is a 78-year-old female who presented from her shelter for an evaluation of generalized weakness. The patient's been having problems over the course last week. She has had nausea vomiting and diarrhea. She was diagnosed with urinary tract infection. They were going to start her on IM antibiotics at her personal-nursing home however when the daughter was consulted she asked them to transfer the patient to [facility] emergency department for further evaluation. The patient was felt to be becoming septic. Her blood sugar was very high. ROS: See above HPI for pertinent positives & negatives. A total of 10 systems reviewed and were otherwise negative. PAST MEDICAL HISTORY: See Below PAST SURGICAL HISTORY: See Below FAMILY HISTORY: See Below SOCIAL HISTORY: See Below HOME MEDICATIONS: See Below ALLERGIES: See Below VITALS: See Below PHYSICAL EXAMINATION: GENERAL: The patient is awake and alert. She is not anxious appearing. EYES: The conjunctivae are clear. The pupils are round and reactive. EARS, NOSE, MOUTH AND THROAT: The nose is without any evidence of any deformity. Mucous membranes are dry. NECK: The neck is nontender and supple. RESPIRATORY: Normal respiratory effort is noted there is no evidence of wheezing rhonchi or rales CARDIOVASCULAR: Regular rate and rhythm noted there no murmurs rubs or gallops normal S1 normal S2. GASTROINTESTINAL: The abdomen is soft. Abdomen is nontender. MUSCULOSKELETAL/EXTREMITIES: There is no evidence of gross deformity full range of motion is noted in the hips and shoulders. SKIN: There is no obvious evidence of any rash. There are no petechiae, pallor or cyanosis noted. NEUROLOGIC: Patient is awake alert and oriented to person but not place time or situation. Strength was symmetric but diminished. MEDICAL DECISION MAKING: The patient is a 78-year-old female who is comfort measures only who was recently diagnosed with an outpatient urinary tract infection. They were trying to treat the patient as an outpatient with IV fluids as well as IV antibiotics. They were unable to do this as an outpatient and when the family member was consulted she requested the patient be sent to the emergency department for further evaluation. The patient does appear to be very dehydrated on physical exam. Given the patient's outpatient laboratory studies including her urinalysis she was treated with 2 IV fluid boluses as well as IV antibiotics. I discussed the patient's laboratory and radiographic studies with the daughter. At this time they would prefer inpatient treatment so I discussed the patient's condition with the on-call [facility] hospitalist. They have agreed to evaluate the patient in the emergency department for further management and disposition. Triage Nursing notes reviewed. Prior medical records reviewed Vital Signs: reviewed and remarkable for hypotension and tachypnea. Differential diagnosis: Infection, dehydration, metabolic abnormality, hypo/hyperglycemia, electrolyte disturbance, anemia, hypoxia, cardiac sources, intracerebral event, toxicologic, neurologic, as well as other pathologies. ER treatment provided: See below Diagnostics interpreted by me: ECG: EKG was obtained in the emergency department. My interpretation is normal sinus rhythm at 90 bpm. There is no ectopy. Poor R wave progression was noted. This was compared to a tracing from September 03, 2023. No changes were noted. Cardiac Monitoring: An order was placed for continuous cardiac monitoring. The monitor shows a rate of 86 bpm with sinus rhythm. Laboratory studies: As stated above and show below. Imaging studies: See below. Radiographic imaging was reviewed by myself Consultation(s): I discussed this case with Ludmila [facility]. Past Med/Surg History Medical History History of cervical cancer 2017- s/p chemo and XRT Port-A-Cath in place unsure of type Alcoholic cirrhosis quit drinking in 2016 Anxiety disorder PTSD (post-traumatic stress disorder) History of COVID-19 tested positive on a home test ~Beginning of September 2022. patient unsure of exact date. reports symptoms included: sore throat, cough and headache. resolved currently. Hypothyroidism History of GI bleed Poor historian Memory changes r/t fall "long time ago,I don't know when it was". Alert and oriented, poor historian. Hypertension Asthma RARE RES. INH USE Mood disorder [place] Per PCP records 04/2023- "Pt has remote history of seizure d/o with history of cavernosum. She has been on Keppra without issue. " Seizure disorder grand mal > last one > "years ago" Dyslipidemia Bipolar 1 disorder (04/07/14) Ana (04/07/14) HX OF Intracranial hemorrhage resolved> was from fall (2013) Anemia DM (diabetes mellitus) IDDM Surgical History History of bilateral tubal ligation History of repair of rotator cuff RCR History of esophagogastroduodenoscopy (EGD) History of appendectomy History of open reduction and internal fixation (ORIF) procedure Left Femur ORIF with kody. History of cataract surgery bilateral History of colonoscopy Hx of cervical spine surgery pt denies -- states she hurt her neck during a fall "about 5 years ago". ROM wnl. Family History Other Family history non-contributory No family history of adverse response to anesthesia Social History Smoking Status: Unknown if ever smoked Tobacco Type: Cigarettes Second Hand Exposure: No; Do You Dip or Chew Tobacco: No; Hx Alcohol Use: No Hx Substance Use: No Preferred Language: Ug[place] Communication Ability: Effective [employer] Professor Required: No Beliefs That Will Affect Care: None Current Living Situation: Spouse Feels Safe at Home: Yes Assistive Devices: Walker Allergies Allergies Allergy/AdvReac Type Severity Reaction Status Date / Time divalproex sodium Allergy Severe weakness, Verified 10/20/23 20:36 [From Depakote] ataxia, confusion lidocaine Allergy Severe edema face Verified 10/20/23 20:36 and lips aspirin Allergy Intermediate INTESTINAL Verified 10/20/23 20:36 BLEEDING AND HIVES magnesium citrate Allergy Intermediate HIVES AND Verified 10/20/23 20:36 SWELLING prednisone Allergy Intermediate HIVES; Verified 10/20/23 20:36 TREMORS simethicone Allergy Intermediate Hives/swell Verified 10/20/23 20:36 ing rosiglitazone AdvReac Severe Anemia/swelling/seizure/memory Verified 10/20/23 20:36 loss valproic acid AdvReac Severe weakness/at Verified 10/20/23 20:36 axia/confus ion citalopram AdvReac Intermediate tremors Verified 10/20/23 20:36 clonazepam AdvReac Intermediate Agitated Verified 10/20/23 20:36 metoclopramide AdvReac Intermediate Leg pains Verified 10/20/23 20:36 onion AdvReac Intermediate nausea/vomi Verified 10/20/23 20:36 ting simvastatin AdvReac Intermediate Leg pains Verified 10/20/23 20:36 sulfamethoxazole AdvReac Intermediate Nausea/vomi Verified 10/20/23 20:36 ting trimethoprim AdvReac Intermediate Nausea/vomi Verified 10/20/23 20:36 ting Home Meds Home Medications Medication Instructions Recorded Confirmed loperamide 2 mg tablet 2 mg PO Q6H PRN Diarrhea 12/07/18 11/18/23 mirtazapine 30 mg tablet (Remeron) 30 mg PO HS 12/07/18 11/18/23 thiamine HCl (vitamin B1) 100 mg 100 mg PO QAM 12/07/18 11/18/23 tablet (Vitamin B-1) iron,carbonyl 65 mg-vitamin C 125 1 tab PO QAM 08/30/19 11/18/23 mg tablet,delayed release (Vitron-C) gabapentin 100 mg capsule 100 mg PO . @0900 09/02/21 11/18/23 acetaminophen 325 mg tablet 325 mg PO Q6 PRN Pain 01/12/23 11/18/23 (Tylenol) cyanocobalamin (vitamin B-12) 1,000 mcg IM MONTHLY 01/12/23 11/18/23 1,000 mcg/mL injection solution ezetimibe 10 mg tablet (Zetia) 10 mg PO QAM 01/12/23 11/18/23 latanoprost (PF) 0.005 % eye drops 1 drp ophthalmic (eye) HS 01/12/23 11/18/23 aripiprazole 5 mg tablet 5 mg PO QAM 03/31/23 11/18/23 duloxetine 60 mg capsule,delayed 60 mg PO QAM 03/31/23 11/18/23 release melatonin 5 mg tablet 5 mg PO HS 08/27/23 11/18/23 multivitamin 1 tab PO QAM 10/20/23 11/18/23 Insta-Glucose 1 applic PO DIRECTED PRN 11/18/23 11/18/23 HYPOGLYCEMIA <60 Milk of Magnesia 30 ml PO DAILY PRN Constipation 11/18/23 11/18/23 Saccharomyces boulardii 250 mg 250 mg PO .0800 11/18/23 11/18/23 capsule (Probiotic (S.boulardii)) acetaminophen 325 mg tablet 650 mg PO Q6H PRN fever > 101 11/18/23 11/18/23 albuterol sulfate 90 mcg/actuation 2 puff inhalation Q4H PRN 11/18/23 11/18/23 aerosol inhaler sob/wheezing bisacodyl 10 mg rectal suppository 10 mg LA DAILY PRN Constipation 11/18/23 11/18/23 (Dulcolax (bisacodyl)) ceftriaxone 1 gram intravenous 1 g IV . DAILY 7 DAYS 11/18/23 11/18/23 solution glucagon 1 applic IM Q15H PRN hypoglycemia 11/18/23 11/18/23 <60 hydrocortisone acetate 25 mg 30 mg LA .0900,2100 11/18/23 11/18/23 rectal suppository (Anucort-HC) levothyroxine 100 mcg tablet 100 mcg PO CAT@0500 11/18/23 11/18/23 (Synthroid) levothyroxine 75 mcg tablet 75 mcg PO MOTUWETHFRSA@0500 11/18/23 11/18/23 (Synthroid) lithium carbonate 300 mg capsule 300 mg PO HS 11/18/23 11/18/23 losartan 100 mg tablet 100 mg PO .0800 11/18/23 11/18/23 mineral oil 118 ml LA DAILY PRN Constipation 11/18/23 11/18/23 potassium chloride 20 mEq 20 meq PO BID 11/18/23 11/18/23 tablet,extended release sodium chloride 0.9 % 100 ml IV .ONE DAY 11/18/23 11/18/23 Previous Rx's Medication Instructions Recorded phenazopyridine 200 mg tablet 200 mg PO Q8H PRN pain #10 tabs 09/03/23 (Pyridium) calcium carbonate 200 mg calcium 500 mg (2.5 x 200 mg calcium (500 10/29/23 (500 mg) chewable tablet (Tums) mg)) PO BID PRN dyspepsia #20 tabs dicyclomine 10 mg capsule 10 mg PO QID PRN abdominal pain 10/29/23 #20 caps insulin glargine 100 unit/mL 40 unit (0.4 mL) subcut BID #10 mL 10/29/23 subcutaneous solution (Lantus U-100 Insulin) oxybutynin chloride 5 mg 10 mg (2 x 5 mg) PO HS 30 days #60 10/29/23 tablet,extended release 24 hr tabs Results & Data (ED) Vital Signs Vital Signs - 24 hr 11/18/23 09:34 11/18/23 09:44 11/18/23 10:00 Temperature 36.0 C L Temperature Source Oral Pulse Rate 91 H 112 H 90 Pulse Rate from SpO2 Sensor 90 Pulse Rhythm Regular Pulse Strength Normal Respiratory Rate 20 24 25 H Respiratory Effort / Characteristics Non-Labored Spontaneous Respiratory Depth Normal Respiratory Pattern Regular Blood Pressure 124/55 L Blood Pressure Mean 78 Blood Pressure Position Sitting Pulse Oximetry 94 97 Oxygen Delivery Method Room Air Sepsis Recent Fever Within 48 Hours No Sepsis New/Unexplained Change in Mental Status Yes Sepsis Action Taken by Nursing No Action Required 11/18/23 10:03 11/18/23 10:17 11/18/23 10:30 Temperature Temperature Source Pulse Rate 86 87 84 Pulse Rate from SpO2 Sensor 84 Pulse Rhythm Regular Pulse Strength Respiratory Rate 20 29 H Respiratory Effort / Characteristics Respiratory Depth Respiratory Pattern Blood Pressure Blood Pressure Mean Blood Pressure Position Pulse Oximetry 94 96 Oxygen Delivery Method Room Air Sepsis Recent Fever Within 48 Hours Sepsis New/Unexplained Change in Mental Status Sepsis Action Taken by Nursing 11/18/23 11:00 11/18/23 11:18 11/18/23 11:30 Temperature Temperature Source Pulse Rate 86 85 86 Pulse Rate from SpO2 Sensor 86 85 86 Pulse Rhythm Pulse Strength Respiratory Rate 28 H 26 H 25 H Respiratory Effort / Characteristics Respiratory Depth Respiratory Pattern Blood Pressure 123/57 L 119/53 L Blood Pressure Mean 83 78 Blood Pressure Position Pulse Oximetry 96 97 95 Oxygen Delivery Method Sepsis Recent Fever Within 48 Hours Sepsis New/Unexplained Change in Mental Status Sepsis Action Taken by [facility] Medications Current Medication List: was personally reviewed by me Laboratory Data Attestation: I reviewed the patient's lab results. 11/18/23 10:05 11/18/23 10:05 Lab Results 11/18/23 11/18/23 11/18/23 Range/Units 10:05 10:10 10:37 WBC 7.12 (4.8-10.8) K/ul RBC 3.76 L (4.20-5.40) M/uL Hgb 9.5 L (12.0-16.0) g/dl Hct 31.6 L (37.0-47.0) % MCV 84.0 (80.0-100.0) fL MCH 25.3 (25.0-34.0) pg MCHC 30.1 L (32.0-36.0) g/dL RDW Std Deviation 48.3 H (36.4-46.3) fL RDW Coeff of Lili 15.9 H (11.5-14.5) % Plt Count 241 (130-400) K/uL MPV 9.4 (9.4-12.4) fL Immature Gran % (Auto) 0.7 % Neut % (Auto) 83.9 % Lymph % (Auto) 10.0 % [place] % (Auto) 5.1 % Eos % (Auto) 0.0 % Baso % (Auto) 0.3 % Neut # (Auto) 5.98 (1.40-6.50) K/uL Lymph # (Auto) 0.71 L (1.20-3.40) K/uL [place] # (Auto) 0.36 (0.11-0.59) K/uL Eos # (Auto) 0.00 (0.00-0.50) K/uL Baso # (Auto) 0.02 (0.00-0.20) K/uL Immature Gran # (Auto) 0.05 (0.01-0.20) K/uL PT 12.9 H (9.0-12.0) Seconds INR 1.2 H (0.9-1.1) APTT 30 (21-31) Seconds PTT Ratio 1.1 VBG pH 7.36 (7.36-7.41) VBG pCO2 37 L (38-50) mmHg VBG pO2 38 mmHg VBG HCO3 21 mmol/L VBG O2 Saturation < 60.0 % VBG Base Excess -4.0 mEq/L Sodium 127 L (136-145) mmol/L Potassium 4.7 (3.5-5.1) mmol/L Chloride 98 (98-107) mmol/L Carbon Dioxide 21 (21-32) mmol/L Anion Gap 8 (3-11) BUN 44 H (6-23) mg/dl Creatinine 0.98 (0.6-1.2) mg/dl Est Cr Clr Drug Dosing 46.6 ml/min Est GFR ( Amer) 64.5 ml/min Est GFR (Non-Af Amer) 55.6 ml/min BUN/Creatinine Ratio 44.9 H (10-20) Glucose 520 H* (70-99(Fasting)) mg/dl POC Glucose (70-99) mg/dl Lactate 1.5 (0.4-2.0) mmol/L Calcium 8.5 L (8.6-10.3) mg/dl Magnesium 1.3 L (1.7-2.4) mg/dl Total Bilirubin 0.4 (0.2-1.0) mg/dl Direct Bilirubin 0.1 (0-0.2) mg/dl AST 17 (13-39) U/L ALT 17 (7-52) U/L Alkaline Phosphatase 196 H (34-104) U/L Ammonia (18-72) umol/L Troponin I High Sens 10.5 (0-14) pg/ml Total Protein 6.6 (6.0-8.3) gm/dl Albumin 3.2 L (3.4-5.0) gm/dl Procalcitonin 3.22 H (0-0.5) ng/ml [place] 1.0 (0.6-1.2) mmol/L SARS-CoV-2 (PCR) NEGATIVE (Negative) Influenza Type A (PCR) Negative (Neg) Influenza Type B (PCR) Negative (Neg) RSV (RT-PCR) Negative (Neg) 11/18/23 11/18/23 Range/Units 12:33 13:26 WBC (4.8-10.8) K/ul RBC (4.20-5.40) M/uL Hgb (12.0-16.0) g/dl Hct (37.0-47.0) % MCV (80.0-100.0) fL MCH (25.0-34.0) pg MCHC (32.0-36.0) g/dL RDW Std Deviation (36.4-46.3) fL RDW Coeff of Lili (11.5-14.5) % Plt Count (130-400) K/uL MPV (9.4-12.4) fL Immature Gran % (Auto) % Neut % (Auto) % Lymph % (Auto) % [place] % (Auto) % Eos % (Auto) % Baso % (Auto) % Neut # (Auto) (1.40-6.50) K/uL Lymph # (Auto) (1.20-3.40) K/uL [place] # (Auto) (0.11-0.59) K/uL Eos # (Auto) (0.00-0.50) K/uL Baso # (Auto) (0.00-0.20) K/uL Immature Gran # (Auto) (0.01-0.20) K/uL PT (9.0-12.0) Seconds INR (0.9-1.1) APTT (21-31) Seconds PTT Ratio VBG pH (7.36-7.41) VBG pCO2 (38-50) mmHg VBG pO2 mmHg VBG HCO3 mmol/L VBG O2 Saturation % VBG Base Excess mEq/L Sodium (136-145) mmol/L Potassium (3.5-5.1) mmol/L Chloride (98-107) mmol/L Carbon Dioxide (21-32) mmol/L Anion Gap (3-11) BUN (6-23) mg/dl Creatinine (0.6-1.2) mg/dl Est Cr Clr Drug Dosing ml/min Est GFR ( Amer) ml/min Est GFR (Non-Af Amer) ml/min BUN/Creatinine Ratio (10-20) Glucose (70-99(Fasting)) mg/dl POC Glucose 407 H* (70-99) mg/dl Lactate (0.4-2.0) mmol/L Calcium (8.6-10.3) mg/dl Magnesium (1.7-2.4) mg/dl Total Bilirubin (0.2-1.0) mg/dl Direct Bilirubin (0-0.2) mg/dl AST (13-39) U/L ALT (7-52) U/L Alkaline Phosphatase (34-104) U/L Ammonia 22.0 (18-72) umol/L Troponin I High Sens (0-14) pg/ml Total Protein (6.0-8.3) gm/dl Albumin (3.4-5.0) gm/dl Procalcitonin (0-0.5) ng/ml [place] (0.6-1.2) mmol/L SARS-CoV-2 (PCR) (Negative) Influenza Type A (PCR) (Neg) Influenza Type B (PCR) (Neg) RSV (RT-PCR) (Neg) Administered Medications Acetaminophen (Acetaminophen 325 Mg Tab) 650 mg PO Q4H PRN PRN Reason: Pain or Fever Stop: 12/18/23 12:06 Last Admin: 11/18/23 13:46 Dose: 650 mg Documented By: YASIR Insulin Aspart (Insulin Aspart Per Unit Charge) 0 units SC ACHS VALERIE Stop: 12/18/23 13:14 Last Admin: 11/18/23 13:42 Dose: 11 units Documented By: YASIR Co-signed By: CHAPIS Insulin Glargine (Lantus Per Unit Charge) 40 units SC ONE ONE Stop: 11/18/23 14:01 Last Admin: 11/18/23 13:43 Dose: 40 units Documented By: YASIR Co-signed By: CHAPIS Discontinued Medications Sodium Chloride (Nss) 1,000 mls @ 999 mls/hr IV .Q1H1M ONE Stop: 11/18/23 11:03 Last Infusion: 11/18/23 13:51 Dose: Infused Documented By: Admin: 11/18/23 11:06 Dose: 999 mls/hr Documented By: OSMANI Ceftriaxone Sodium (Rocephin) 2,000 mg in 50 mls @ 100 mls/hr IV NOW STA Stop: 11/18/23 10:33 Last Infusion: 11/18/23 13:51 Dose: Infused Documented By: Admin: 11/18/23 11:06 Dose: 100 mls/hr Documented By: OSMANI Sodium Chloride (Nss) 1,000 mls @ 999 mls/hr IV .Q1H1M ONE Stop: 11/18/23 12:30 Last Infusion: 11/18/23 13:52 Dose: Infused Documented By: Admin: 11/18/23 11:43 Dose: 999 mls/hr Documented By: OSMANI Magnesium Sulfate/Dextrose (Magnesium Sulfate / D5w) 1 gm in 100 mls @ 100 mls/hr IV Q1H VALERIE Stop: 11/18/23 13:45 Last Admin: 11/18/23 13:47 Dose: 100 mls/hr Documented By: YASIR Insulin Human Regular (Novolin-R Insulin Per Unit Charge) 10 units IV NOW STA Stop: 11/18/23 11:31 Last Admin: 11/18/23 11:41 Dose: 10 units Documented By: OSMANI Co-signed By: GUANACO Ondansetron HCl (Ondansetron Inj 2 Mg/Ml 2 Ml Vial) 4 mg IV NOW STA Stop: 11/18/23 10:04 Last Admin: 11/18/23 11:07 Dose: 4 mg Documented By: OSMANI Imaging Data Attestation: I personally reviewed and interpreted this imaging study as follows: My Impression: 1 view chest x-ray was obtained in the emergency department. My interpretation is no free air or definite infiltrate, final report below Radiologist's Impression: Chest X-Ray 11/18/23 10:03 XR chest 1V portable CLINICAL HISTORY: Sepsis TECHNIQUE: Single frontal radiograph of the chest was obtained. Comparison: Comparison is made to chest radiograph 10/20/2023 FINDINGS: A port catheter is seen. Calcified aortic knob is seen. The lungs are clear. No evidence of pleural effusion or pneumothorax. IMPRESSION: No acute abnormalities and in particular no radiographic evidence of pneumonia. ACT 112: Negative or not required by law. Electronically signed by: Víctor Sinha M.D. 11/18/2023 10:40 AM Discharge Plan Visit Data Chief Complaint: Vomiting Stated Complaint: DIARRHEA, VOMITING ED Provider: Lenin Parks Discharge Problem: Acute pyelonephritis, Acute hyperglycemia, Acute dehydration, Hypomagnesemia Patient Disposition: Being Evaluated by Hospitalist Forms Stand Alone Forms: My [facility] Prescriptions Prescriptions: No Action loperamide 2 mg Tablet 2 mg PO Q6H PRN (Reason: Diarrhea) thiamine HCl (vitamin B1) [Vitamin B-1] 100 mg tablet 100 mg PO QAM mirtazapine [Remeron] 30 mg tablet 30 mg PO HS Vitron-C 65 mg iron- 125 mg Tablet,Delayed Release (Dr/Ec) 1 tab PO QAM gabapentin 100 mg Capsule 100 mg PO . @0900 aripiprazole 5 mg tablet 5 mg PO QAM duloxetine 60 mg capsule,delayed release(DR/EC) 60 mg PO QAM melatonin 5 mg Tablet 5 mg PO HS phenazopyridine [Pyridium] 200 mg tablet 200 mg PO Q8H PRN (Reason: pain) Qty: 10 0RF multivitamin Tablet 1 tab PO QAM dicyclomine 10 mg Capsule 10 mg PO QID PRN (Reason: abdominal pain) Qty: 20 0RF calcium carbonate [Tums] 200 mg calcium (500 mg) Tablet,Chewable 500 mg PO BID PRN (Reason: dyspepsia) Qty: 20 0RF insulin glargine [Lantus U-100 Insulin] 100 unit/mL Solution 40 unit subcut BID Qty: 10 2RF Rx Instructions: 40 units if BSG below 180 50 units if BSG above 180 oxybutynin chloride 5 mg Tablet Extended Release 24hr 10 mg PO HS 30 Days Qty: 60 0RF acetaminophen 325 mg Tablet 650 mg PO Q6H MDD 3 gm/24hr PRN (Reason: fever > 101) ceftriaxone 1 gram Recon Soln 1 g IV . DAILY 7 DAYS Rx Instructions: mineral oil [Enema] Enema 118 ml LA DAILY PRN (Reason: Constipation) Rx Instructions: morning of day 4 of no bm discard any unused portion lithium carbonate 300 mg Capsule 300 mg PO HS bisacodyl [Dulcolax (bisacodyl)] 10 mg Suppository 10 mg LA DAILY PRN (Reason: Constipation) Rx Instructions: evening of 3rd day of no bm albuterol sulfate 90 mcg/actuation Hfa Aerosol Inhaler 2 puff INHALATION Q4H PRN (Reason: sob/wheezing) losartan 100 mg Tablet 100 mg PO .0800 Saccharomyces boulardii [Probiotic (S.boulardii)] 250 mg Capsule 250 mg PO .0800 potassium chloride 20 mEq Tablet Extended Release 20 meq PO BID Insta-Glucose 1 applic PO DIRECTED PRN (Reason: HYPOGLYCEMIA <60 ) Milk of Magnesia 30 ml PO DAILY PRN (Reason: Constipation) Rx Instructions: morning of 3rd day of no bm glucagon 1 applic IM Q15H PRN (Reason: hypoglycemia <60) sodium chloride 0.9 % 100 ml IV .ONE DAY Rx Instructions: start 11/18/23 1400 hydrocortisone acetate [Anucort-HC] 25 mg suppository 30 mg LA .0900,2100 levothyroxine [Synthroid] 75 mcg tablet 75 mcg PO MOTUWETHFRSA@0500 levothyroxine [Synthroid] 100 mcg tablet 100 mcg PO CAT@0500 acetaminophen [Tylenol] 325 mg Tablet 325 mg PO Q6 PRN (Reason: Pain) cyanocobalamin (vitamin B-12) 1,000 mcg/mL Solution 1,000 mcg IM MONTHLY Rx Instructions: every 30 days ezetimibe [Zetia] 10 mg Tablet 10 mg PO QAM latanoprost (PF) 0.005 % Drops 1 drp OPHTHALMIC (EYE) HS Rx Instructions: Patient states she administers 1 drop in both eyes every night Referrals Referrals: Yulia Stein DO [Outside Practitioners] -
[2023-11-18 10:34] LABS: Basophils # (auto) 0.02 K/uL (0.00-0.20); Basophils % (auto) 0.3 %; Hematocrit (blood only) 31.6 % (37.0-47.0); Hemoglobin 9.5 g/dl (12.0-16.0); Immature Granulocytes # (auto) 0.05 K/uL (0.01-0.20); Immature Granulocytes % (auto) 0.7 %; Lymphocytes # (auto) 0.71 K/uL (1.20-3.40); Mean Corpuscular Hemoglobin 25.3 pg (25.0-34.0); Mean Corpuscular Hgb Conc 30.1 g/dL (32.0-36.0); Mean Platelet Volume 9.4 fL (9.4-12.4); Monocytes # (auto) 0.36 K/uL (0.11-0.59); Monocytes % (auto) 5.1 %; Neutrophils # (auto) 5.98 K/uL (1.40-6.50); Neutrophils % (auto) 83.9 %; Platelet Count 241 K/uL (130-400); RDW Coefficient of Variation 15.9 % (11.5-14.5); RDW Standard Deviation 48.3 fL (36.4-46.3); Red Blood Count 3.76 M/uL (4.20-5.40); White Blood Count 7.12 K/ul (4.8-10.8)
--- NOTE | 2023-11-18 10:41 | XRay Report ---
XR chest 1V portable CLINICAL HISTORY: Sepsis TECHNIQUE: Single frontal radiograph of the chest was obtained. Comparison: Comparison is made to chest radiograph 10/20/2023 FINDINGS: A port catheter is seen. Calcified aortic knob is seen. The lungs are clear. No evidence of pleural e ffusion or pneumothorax. IMPRESSION: No acute abnormalities and in particular no radiographic evidence of pneumonia. ACT 112: Negative or not required by law. Electronically signed by: Víctor Sinha M.D. 11/18/2023 10:40 AM
[2023-11-18 10:58] LABS: Albumin Level 3.2 gm/dl (3.4-5.0); BUN Creatinine Ratio 44.9 (10-20); Bilirubin Direct 0.1 mg/dl (0-0.2); Bilirubin,Total 0.4 mg/dl (0.2-1.0); Calcium 8.5 mg/dl (8.6-10.3); Creatinine Clr Calc Pharmacy 46.6 ml/min; Est GFR (African American) 64.5 ml/min; Est GFR (Non-African American) 55.6 ml/min; Magnesium 1.3 mg/dl (1.7-2.4); Potassium 4.7 mmol/L (3.5-5.1); Total Protein 6.6 gm/dl (6.0-8.3)
[2023-11-18 11:01] LABS: INR 1.2 (0.9-1.1); Partial Thromboplastin Ratio 1.1; Partial Thromboplastin Time 30 Seconds (21-31); Prothrombin Time 12.9 Seconds (9.0-12.0)
[2023-11-18 11:03] LABS: Troponin I High Sensitivity 10.5 pg/ml (0-14)
[2023-11-18 11:09] LABS: Influenza A virus by PCR Negative (Neg); Influenza B virus by PCR Negative (Neg); RSV by PCR Negative (Neg); SARS CoV2 RNA(COVID-19) Ceph NEGATIVE (Negative)
[2023-11-18 11:11] LABS: HCO3 VBG 21 mmol/L; Oxygen Saturation VBG < 60.0 %; PCO2 VBG 37 mmHg (38-50); PO2 VBG 38 mmHg; pH VBG 7.36 (7.36-7.41)
[2023-11-18] MEDS ORDERED: NovoLIN-R INSULIN PER UNIT CHARGE IV STA (11:30)
[2023-11-18] MEDS ORDERED: ACETAMINOPHEN 325 MG TAB PO PRN (12:07)
[2023-11-18] MEDS ORDERED: GLUCAGON FOR INJ 1 MG VIAL SQ PRN (12:07)
[2023-11-18] MEDS ORDERED: DEXTROSE 50% 50 ML SYRINGE IV PRN (12:07)
[2023-11-18] MEDS ORDERED: CARBOHYDRATES FOR HYPOGLYCEMIA PO PRN (12:07)
[2023-11-18] MEDS ORDERED: GLUCOSE 10 TAB/TUBE PO PRN (12:07)
[2023-11-18] MEDS ORDERED: GLUCOSE 40% GEL 15 GM TUBE PO PRN (12:07)
[2023-11-18] MEDS ORDERED: POLYETHYLENE (MIRALAX) 17 GM PACK PO PRN (12:07)
[2023-11-18] MEDS ORDERED: ONDANSETRON INJ 2 MG/ML 2 ML VIAL IV PRN (12:07)
[2023-11-18] MEDS ORDERED: PHARMACY GLYCEMIC MGMT CONSULT PRN (12:07)
--- NOTE | 2023-11-18 12:17 | History & Physical Report ---
Date of Service November 18, 2023 Assessment & Plan (1) Acute hyperglycemia: (2) Acute dehydration: (3) Hypomagnesemia: (4) Acute metabolic encephalopathy: (5) UTI (urinary tract infection): Plan This is a 78 yr old F who has significant PMH of T2DM insulin dependent, HTN , HLD, Hypothyroidism, asthma, cirrhosis, portal HTN, b12 def, radiation proctitis, hx of cervical adenocarcinoma, osteoporosis, epilepsy, STACI, obsessive compulsive disorder, mood disorder, hx of SAH, biploar disorder and PTSD who presents from [facility] 01/01 to hyperglycemia, UTI and worsened mental status. Acute Dehydration admit to tele received 2 L of IVF in ED, will continue gentle IVF for now until tolerating PO Acute hyperglycemia T2DM insulin dependent likely exacerbated by dehydration daughter reports unknown if facility following insulin regimen glycemic consult a1c 8.1 on 10/20/23 lantus/novolog per protocol Acute UTI Acute metabolic encephalopathy continue empiric ceftriaxone urine and blood cultures pending Hypomagnesemia mag 1.3 replete with mag sulfate x 4g will start daily oral mag oxide but will need to monitor for diarrhea Cirrhosis History of decompensation: none; autoimmune workup negative MELD-Na: 8 on admission Last EGD 2022: mild portal gastropathy, no varices Last C-Scope [facility], colonoscopy, non-bleeding colonic angioectasis, limited sigmois diverticulosis, / no specimens collected 12/2022 No evidence of HE on exam, ammonia WNL Hx of radiation proctitis Diarrhea mesalamine d/c 01/01 patient declining previously was on hydrocortisone suppository but this was not done at facility will monitor for now as she is not having sx Prior cervical adenocarcinoma s/p radiation Chronic vaginal bleeding recent cystoscopy 09/03/2023: Severe varicosity throughout bladder neck and urethra with significant inflammation and areas of active bleeding. blood on admitting UA, monitor Epilepsy, tonic-clonic Bipolar disorder Continue gabapentin, lithium, duloxetine and mirtazapine Hypothyroidism Chronic, stable Continue levothyroxine Dispo: tele, daughter wishes for patient to not return to [facility], will need to look for other facilities PCP: Emil with [facility]; Dr. Neri at [facility] DNR/DNI Pt was seen and examined in collaboration with Dr. Smallwood, please see addendum A total of 86 was spent coordinating, documenting, and providing care for this patient excluding time spent in the performance of separately billed services. This included personally viewing all current laboratories and imaging studies, medication reconciliation, outpatient chart review, and discussion with specialists. History of Present Illness Chief Complaint: Hyperglycemia, UTI Primary Care Provider: Jose Daron This is a 78 yr old F who has significant PMH of T2DM insulin dependent, HTN ,HLD, Hypothyroidism, asthma, cirrhosis, portal HTN, b12 def, radiation proctit is, hx of cervical adenocarcinoma, osteoporosis, epilepsy, STACI, obsessive compulsive disorder, mood disorder, hx of SAH, biploar disorder and PTSD who presents from [facility] 01/01 to hyperglycemia, UTI and worsened mental status. Daughter at bedside who also helps elicit history. She was recently hospitalized 10/21-10/29 and d/c to [facility]. At that time she was hospitalized for diarrhea with history of radiation proctitis. Endoscopic evaluation was deferred at that time and she was placed on hydrocortisone suppository. She also was treated for acute cystitis with urine culture positive for E. coli in which she completed a course of IV ceftriaxone. She was transitioned to SNF where daughter is very unhappy with care there and her mother has not been receiving some of her treatment. Yesterday patient developed vomiting. They also dx her with UTI at facility and was going to start her on antibiotics; however daughter asked she be transferred to [facility]. It was also reported her BSGS were in the 400-500s while there. The daughter does not want her to go back to [facility]. In ED patient remained hemodynamically stable. Notable lab abnormalities include H&H 9.5 and 31.6, sodium 127, BUN 44, creatinine 0.98, glucose 520, mag 1.3 and procalcitonin 3.22. Her lithium level was within normal limits. Respiratory panel was negative for COVID, influenza and RSV. Her chest x-ray was negative for any acute abnormality. She was empirically treated with IV Rocephin while in ED. She also received magnesium supplementation and IVF. Allergies Allergy/AdvReac Type Severity Reaction Status Date / Time divalproex sodium Allergy Severe weakness, Verified 10/20/23 20:36 [From Depakote] ataxia, confusion lidocaine Allergy Severe edema face Verified 10/20/23 20:36 and lips aspirin Allergy Intermediate INTESTINAL Verified 10/20/23 20:36 BLEEDING AND HIVES magnesium citrate Allergy Intermediate HIVES AND Verified 10/20/23 20:36 SWELLING prednisone Allergy Intermediate HIVES; Verified 10/20/23 20:36 TREMORS simethicone Allergy Intermediate Hives/swell Verified 10/20/23 20:36 ing rosiglitazone AdvReac Severe Anemia/swelling/seizure/memory Verified 10/20/23 20:36 loss valproic acid AdvReac Severe weakness/at Verified 10/20/23 20:36 axia/confus ion citalopram AdvReac Intermediate tremors Verified 10/20/23 20:36 clonazepam AdvReac Intermediate Agitated Verified 10/20/23 20:36 metoclopramide AdvReac Intermediate Leg pains Verified 10/20/23 20:36 onion AdvReac Intermediate nausea/vomi Verified 10/20/23 20:36 ting simvastatin AdvReac Intermediate Leg pains Verified 10/20/23 20:36 sulfamethoxazole AdvReac Intermediate Nausea/vomi Verified 10/20/23 20:36 ting trimethoprim AdvReac Intermediate Nausea/vomi Verified 10/20/23 20:36 ting Home Medications Medication Instructions Recorded Confirmed Type loperamide 2 mg tablet 2 mg PO Q6H PRN Diarrhea 12/07/18 11/18/23 History mirtazapine 30 mg tablet (Remeron) 30 mg PO HS 12/07/18 11/18/23 History thiamine HCl (vitamin B1) 100 mg 100 mg PO QAM 12/07/18 11/18/23 History tablet (Vitamin B-1) iron,carbonyl 65 mg-vitamin C 125 1 tab PO QAM 08/30/19 11/18/23 History mg tablet,delayed release (Vitron-C) gabapentin 100 mg capsule 100 mg PO . @0900 09/02/21 11/18/23 History acetaminophen 325 mg tablet 325 mg PO Q6 PRN Pain 01/12/23 11/18/23 History (Tylenol) cyanocobalamin (vitamin B-12) 1,000 mcg IM MONTHLY 01/12/23 11/18/23 History 1,000 mcg/mL injection solution ezetimibe 10 mg tablet (Zetia) 10 mg PO QAM 01/12/23 11/18/23 History latanoprost (PF) 0.005 % eye drops 1 drp ophthalmic (eye) HS 01/12/23 11/18/23 History aripiprazole 5 mg tablet 5 mg PO QAM 03/31/23 11/18/23 History duloxetine 60 mg capsule,delayed 60 mg PO QAM 03/31/23 11/18/23 History release melatonin 5 mg tablet 5 mg PO HS 08/27/23 11/18/23 History phenazopyridine 200 mg tablet 200 mg PO Q8H PRN pain #10 tabs 09/03/23 11/18/23 Rx (Pyridium) multivitamin 1 tab PO QAM 10/20/23 11/18/23 History calcium carbonate 200 mg calcium 500 mg (2.5 x 200 mg calcium (500 10/29/23 11/18/23 Rx (500 mg) chewable tablet (Tums) mg)) PO BID PRN dyspepsia #20 tabs dicyclomine 10 mg capsule 10 mg PO QID PRN abdominal pain 10/29/23 11/18/23 Rx #20 caps insulin glargine 100 unit/mL 40 unit (0.4 mL) subcut BID #10 mL 10/29/23 11/18/23 Rx subcutaneous solution (Lantus U-100 Insulin) oxybutynin chloride 5 mg 10 mg (2 x 5 mg) PO HS 30 days #60 10/29/23 11/18/23 Rx tablet,extended release 24 hr tabs Insta-Glucose 1 applic PO DIRECTED PRN 11/18/23 11/18/23 History HYPOGLYCEMIA <60 Milk of Magnesia 30 ml PO DAILY PRN Constipation 11/18/23 11/18/23 History Saccharomyces boulardii 250 mg 250 mg PO .0800 11/18/23 11/18/23 History capsule (Probiotic (S.boulardii)) acetaminophen 325 mg tablet 650 mg PO Q6H PRN fever > 101 11/18/23 11/18/23 History albuterol sulfate 90 mcg/actuation 2 puff inhalation Q4H PRN 11/18/23 11/18/23 History aerosol inhaler sob/wheezing bisacodyl 10 mg rectal suppository 10 mg WA DAILY PRN Constipation 11/18/23 11/18/23 History (Dulcolax (bisacodyl)) ceftriaxone 1 gram intravenous 1 g IV . DAILY 7 DAYS 11/18/23 11/18/23 History solution glucagon 1 applic IM Q15H PRN hypoglycemia 11/18/23 11/18/23 History <60 hydrocortisone acetate 25 mg 30 mg WA .0900,2100 11/18/23 11/18/23 History rectal suppository (Anucort-HC) levothyroxine 100 mcg tablet 100 mcg PO CAT@0500 11/18/23 11/18/23 History (Synthroid) levothyroxine 75 mcg tablet 75 mcg PO MOTUWETHFRSA@0500 11/18/23 11/18/23 History (Synthroid) lithium carbonate 300 mg capsule 300 mg PO HS 11/18/23 11/18/23 History losartan 100 mg tablet 100 mg PO .0800 11/18/23 11/18/23 History mineral oil 118 ml WA DAILY PRN Constipation 11/18/23 11/18/23 History potassium chloride 20 mEq 20 meq PO BID 11/18/23 11/18/23 History tablet,extended release sodium chloride 0.9 % 100 ml IV .ONE DAY 11/18/23 11/18/23 History Past Med/Surg History Medical History History of cervical cancer 2017- s/p chemo and XRT Port-A-Cath in place unsure of type Alcoholic cirrhosis quit drinking in 2016 Anxiety disorder PTSD (post-traumatic stress disorder) History of COVID-19 tested positive on a home test ~Beginning of September 2022. patient unsure of exact date. reports symptoms included: sore throat, cough and headache. resolved currently. Hypothyroidism History of GI bleed Poor historian Memory changes r/t fall "long time ago,I don't know when it was". Alert and oriented, poor historian. Hypertension Asthma RARE RES. INH USE Mood disorder [place] Per PCP records 04/2023- "Pt has remote history of seizure d/o with history of cavernosum. She has been on Keppra without issue. " Seizure disorder grand mal > last one > "years ago" Dyslipidemia Bipolar 1 disorder (04/07/14) Ana (04/07/14) HX OF Intracranial hemorrhage resolved> was from fall (2013) Anemia DM (diabetes mellitus) IDDM Surgical History History of bilateral tubal ligation History of repair of rotator cuff RCR History of esophagogastroduodenoscopy (EGD) History of appendectomy History of open reduction and internal fixation (ORIF) procedure Left Femur ORIF with kody. History of cataract surgery bilateral History of colonoscopy Hx of cervical spine surgery pt denies -- states she hurt her neck during a fall "about 5 years ago". ROM wnl. Family History Other Family history non-contributory No family history of adverse response to anesthesia Social History Smoking Status: Unknown if ever smoked Tobacco Type: Cigarettes Second Hand Exposure: No; Do You Dip or Chew Tobacco: No; Hx Alcohol Use: No Hx Substance Use: No Preferred Language: Israeli Communication Ability: Effective Test Analyst Required: No Beliefs That Will Affect Care: None Current Living Situation: [facility] Other Information That Helps Us Care for You: No Feels Safe at Home: Yes Safety Concerns: Feels Safe At This Time Assistive Devices: Walker Review of Systems Review of Systems: All systems reviewed & are unremarkable except as noted in HPI & below Physical Exam Physical Exam: please refer to Dr. Calderon addendum for physical exam findings. Results & Data Results & Data Vital Signs (Past 12 Hours) Vital Signs Temp Pulse Resp BP Pulse Ox O2 Del Method 11/18/23 11:30 86 25 H 119/53 L 95 11/18/23 11:18 85 26 H 123/57 L 97 11/18/23 11:00 86 28 H 96 11/18/23 10:30 84 29 H 96 11/18/23 10:17 87 11/18/23 10:03 86 20 94 Room Air 11/18/23 10:00 90 25 H 97 11/18/23 09:44 112 H 24 11/18/23 09:34 36.0 C L 91 H 20 124/55 L 94 Room Air Laboratory Results I have independently reviewed and interpreted patient's admitting labs including CBC, CMP, PTT, PT/INR, mag, NH3, lactic acid, vbg, procalcitonin, lithium, sars/flu/rsv and troponin. Diagnostic Findings Chest X-Ray 11/18/23 10:03 XR chest 1V portable CLINICAL HISTORY: Sepsis TECHNIQUE: Single frontal radiograph of the chest was obtained. Comparison: Comparison is made to chest radiograph 10/20/2023 FINDINGS: A port catheter is seen. Calcified aortic knob is seen. The lungs are clear. No evidence of pleural effusion or pneumothorax. IMPRESSION: No acute abnormalities and in particular no radiographic evidence of pneumonia. ACT 112: Negative or not required by law. Electronically signed by: Víctor Sinha M.D. 11/18/2023 10:40 AM Medications Administered Medication List Acetaminophen (Acetaminophen 325 Mg Tab) 650 mg PO Q4H PRN PRN Reason: Pain or Fever Stop: 12/18/23 12:06 Last Admin: 11/18/23 13:46 Dose: 650 mg Documented By: YASIR Insulin Aspart (Insulin Aspart Per Unit Charge) 0 units SC ACHS VALERIE Stop: 12/18/23 13:14 Last Admin: 11/18/23 13:42 Dose: 11 units Documented By: YASIR Co-signed By: CHAPIS Discontinued Medications Sodium Chloride (Nss) 1,000 mls @ 999 mls/hr IV .Q1H1M ONE Stop: 11/18/23 11:03 Last Infusion: 11/18/23 13:51 Dose: Infused Documented By: Admin: 11/18/23 11:06 Dose: 999 mls/hr Documented By: OSMANI Ceftriaxone Sodium (Rocephin) 2,000 mg in 50 mls @ 100 mls/hr IV NOW STA Stop: 11/18/23 10:33 Last Infusion: 11/18/23 13:51 Dose: Infused Documented By: Admin: 11/18/23 11:06 Dose: 100 mls/hr Documented By: OSMANI Sodium Chloride (Nss) 1,000 mls @ 999 mls/hr IV .Q1H1M ONE Stop: 11/18/23 12:30 Last Infusion: 11/18/23 13:52 Dose: Infused Documented By: Admin: 11/18/23 11:43 Dose: 999 mls/hr Documented By: OSMANI Magnesium Sulfate/Dextrose (Magnesium Sulfate / D5w) 1 gm in 100 mls @ 100 mls/hr IV Q1H VALERIE Stop: 11/18/23 13:45 Last Admin: 11/18/23 13:47 Dose: 100 mls/hr Documented By: YASIR Insulin Glargine (Lantus Per Unit Charge) 40 units SC ONE ONE Stop: 11/18/23 14:01 Last Admin: 11/18/23 13:43 Dose: 40 units Documented By: YASIR Co-signed By: CHAPIS Insulin Human Regular (Novolin-R Insulin Per Unit Charge) 10 units IV NOW STA Stop: 11/18/23 11:31 Last Admin: 11/18/23 11:41 Dose: 10 units Documented By: OSMANI Co-signed By: GUANACO Ondansetron HCl (Ondansetron Inj 2 Mg/Ml 2 Ml Vial) 4 mg IV NOW STA Stop: 11/18/23 10:04 Last Admin: 11/18/23 11:07 Dose: 4 mg Documented By: OSMANI ECG Additional Comments: I have independently reviewed and interpreted patient's admitting EKG which revealed: NSR< 90 bpm, LAD, qtc 489ms, COVID-19 Results Results COVID-19 Adm Lab Results: RBC 3.76 M/uL (4.20-5.40) L 11/18/23 WBC 7.12 K/ul (4.8-10.8) 11/18/23 Hgb 9.5 g/dl (12.0-16.0) L 11/18/23 Hct 31.6 % (37.0-47.0) L 11/18/23 Plt Count 241 K/uL (130-400) 11/18/23 Neutrophils (%) (Auto) 83.9 % 11/18/23 Lymphocytes (%) (Auto) 10.0 % 11/18/23 Monocytes # (Auto) 0.36 K/uL (0.11-0.59) 11/18/23 Eosinophils # (Auto) 0.00 K/uL (0.00-0.50) 11/18/23 Immature Granulocyte % (Auto) 0.7 % 11/18/23 Neutrophils # (Auto) 5.98 K/uL (1.40-6.50) 11/18/23 Lymphocytes # (Auto) 0.71 K/uL (1.20-3.40) L 11/18/23 Monocytes # (Auto) 0.36 K/uL (0.11-0.59) 11/18/23 Eosinophils # (Auto) 0.00 K/uL (0.00-0.50) 11/18/23 Basophils # (Auto) 0.02 K/uL (0.00-0.20) 11/18/23 Immature Granulocyte # (Auto) 0.05 K/uL (0.01-0.20) 3 Na 127 mmol/L (136-145) L 11/18/23 K 4.7 mmol/L (3.5-5.1) 11/18/23 Cl 98 mmol/L (98-107) 11/18/23 CO2 21 mmol/L (21-32) 11/18/23 Anion Gap 8 (3-11) 11/18/23 BUN 44 mg/dl (6-23) H 11/18/23 Creatinine 0.98 mg/dl (0.6-1.2) 11/18/23 BUN/Creatinine Ratio 44.9 (10-20) H 11/18/23 Glucose Level 520 mg/dl (70-99(Fasting)) H* 11/18/23 Ca 8.5 mg/dl (8.6-10.3) L 11/18/23 Total Bilirubin 0.4 mg/dl (0.2-1.0) 11/18/23 Direct Bilirubin 0.1 mg/dl (0-0.2) 11/18/23 AST/SGOT 17 U/L (13-39) 11/18/23 ALT/SGPT 17 U/L (7-52) 11/18/23 Alkaline Phosphatase 196 U/L (34-104) H 11/18/23 Total Protein 6.6 gm/dl (6.0-8.3) 11/18/23 Albumin 3.2 gm/dl (3.4-5.0) L 11/18/23 Procalcitonin 3.22 ng/ml (0-0.5) H 11/18/23 PTT 30 Seconds (21-31) 11/18/23 INR 1.2 (0.9-1.1) H 11/18/23 COVID-19 PCR NEGATIVE (Negative) 11/18/23 Influenza Virus Type A (PCR) Negative (Neg) 11/18/23 Influenza Virus Type B (PCR) Negative (Neg) 11/18/23 Chest X-Ray 11/18/23 Code Status & VTE Plan Code Status DNR/DNI VTE Prophylaxis Plan VTE Prophylaxis will be ordered: Yes Supervising Physician Co-Signing Physician Notes I have seen and discussed the case with the collaborating DANK. I agree with the above H&P. I have reviewed and confirmed the patients medical history, the findings on physical examination, and the patients diagnosis and treatment plan with Esha WEEMS and agree with the information documented. In short, Ms. Rowland is a 78 year old woman with complicated past history to include chronic diarrhea iso radiation proctitis and cirrhosis who is admitted due to concerns of weakne ss and encephalopathy. Daughter is active in care and states her mother is not to return to [facility]. Labs notable for glucose in 520s, mag of 1.3, stable ammonia/lfts and urine suspicious for infection. Exam revealed a confused and weak looking patient, responds to simple questioning, RRR on exam, abdomen NTND. No apparent neurologic deficit however difficult to formally assess given mentation. Plan to treat empirically with abx, follow up on infectious work up, and discuss further placement with Case management. Patient is DNR/DNI, however, escalation of care to ICU is in the options and to be discussed should patient require it. Rest of plan as above.
[2023-11-18] MEDS: INSULIN ASPART PER UNIT CHARGE SC SCH ×3 (13:42→21:47)
[2023-11-18] MEDS: MAGNESIUM SULFATE / D5W 1 GM/100 ML BAG IV SCH ×4 (13:47→18:15)
[2023-11-18] MEDS ORDERED: LANTUS PER UNIT CHARGE SC ONE (14:00)
[2023-11-18] MEDS ORDERED: SODIUM CHLORIDE 0.9% 1,000 ML IV SCH (14:15)
[2023-11-18] MEDS ORDERED: ALBUTEROL HFA 8 GM INHALER INH PRN (15:17)
[2023-11-18] MEDS ORDERED: SACCHAROMYCES BOULARDII 250 MG CAP PO SCH (15:17)
--- NOTE | 2023-11-18 15:32 | Pharmacy Report ---
Pharmacy Glycemic Short Note 2 - Date of Service November 18, 2023 - Glycemic Short BSG Results (Last 24 hours): 11/18/23 11/18/23 10:05 13:26 Glucose 520 H* POC Glucose 407 H* OUTPATIENT ANTIDIABETIC REGIMEN: * Lantus 40 units SC BID ASSESSMENT: * Karla is a 78 YOF admitted for weakness and UTI with a history of T2DM. Pharmacy has been consulted for glycemic management while in patient. She is known the glycemic service and we will dose insulin based on previously successful values * Fasting BSG in 500's this AM, 10 unit IV regular insulin bolus given this AM. BSG check 2 hours later trending downward * Lantus 40 units given with lunch, Novolog initiated at a weight based stress of 3, received 11 units of Novolog with lunch. * Will order previously effective Novolog regimen to start with dinner. * If BSGs remain elevated, may need to start an insulin infusion. PLAN FOR INPATIENT GLYCEMIC CONTROL: * Hold outpatient oral diabetes medications * Basal insulin * Lantus 40 units SQ BID * Bolus insulin * NovoLog per scale ACHS or Q6hrs while NPO * Goal Range: Low 110 mg/dL - High 140 mg/dL * Correction Factor: 12 mg/dL/unit * Nutritional / Prandial insulin per carb ratio of 1 unit per 4 grams CHO consumed
[2023-11-18] MEDS: GABAPENTIN 100 MG CAP PO SCH (16:25)
[2023-11-18 19:22] LABS: BUN Creatinine Ratio 45.1 (10-20); Calcium 8.4 mg/dl (8.6-10.3); Creatinine Clr Calc Pharmacy 55.7 ml/min; Potassium 3.8 mmol/L (3.5-5.1)
[2023-11-18] MEDS: LANTUS PER UNIT CHARGE SC SCH (21:47)
[2023-11-18] MEDS: MELATONIN 3 MG TAB PO SCH (21:48)
[2023-11-18] MEDS: OXYBUTYNIN CHLORIDE XL 5 MG TABCR PO SCH (21:48)
[2023-11-18] MEDS: MIRTAZAPINE TAB 15 MG TAB PO SCH (21:48)
[2023-11-18] MEDS: LATANOPROST 0.005% OP SOLN 2.5 ML BTL OP SCH (21:49)
[2023-11-18] MEDS: LITHIUM CARBONATE 300 MG TAB PO SCH (21:49)
[2023-11-18] MEDS: HEPARIN SOD 5,000 UNIT/0.5 ML VIAL SQ SCH (21:51)
[2023-11-19] MEDS ORDERED: HEPARIN 100 UNIT/ML 5ML FLUSH FLUSH PRN (00:54)
[2023-11-19 01:12] LABS: A calco-baum cmplx NotReported Not Detected (NotDetected); Bact fragilis Not Reported Not Detected (NotDetected); Blood Culture Id Panel See PCR Comment (NotDetected); C auris Not Reported Not Detected (NotDetected); CTX-M Resistant Gene Not Detected (NotDetected); Calbicans Not Reported Not Detected (NotDetected); Candida glabrata Not Reported Not Detected (NotDetected); Candida krusei Not Reported Not Detected (NotDetected); Cneoformans/gatti Not Reported Not Detected (NotDetected); Cparapsilosis Not Reported Not Detected (NotDetected); E cloacae compx Not Reported Not Detected (NotDetected); Efaecalis Not Reported Not Detected (NotDetected); Efaecium Not Reported Not Detected (NotDetected); Enterobacterales DETECTED (NotDetected); Enterobacterales Not Reported DETECTED (NotDetected); Escherichia coli Not Reported DETECTED (NotDetected); H influenzae Not Reported Not Detected (NotDetected); IMP Resistant Gene Not Detected (NotDetected); K aerogenes Not Reported Not Detected (NotDetected); KPC Resistant Gene Not Detected (NotDetected); Koxytoca Not Reported Not Detected (NotDetected); Kpneumoniae grp Not Reported Not Detected (NotDetected); Lmonocyt Not Reported Not Detected (NotDetected); N meningitidis Not Reported Not Detected (NotDetected); NDM Resistant Gene Not Detected (NotDetected); OXA 48 Like Resistant Gene Not Detected (NotDetected); P aeruginosa Not Reported Not Detected (NotDetected); Proteus spp Not Reported Not Detected (NotDetected); Salmonella spp Not Reported Not Detected (NotDetected); Smarcescens Not Reported Not Detected (NotDetected); Staph lugdunensis Not Reported Not Detected (NotDetected); Staph spp. Not Reported Not Detected (NotDetected); Staphaureus Not Reported Not Detected (NotDetected); Staphepi Not Reported Not Detected (NotDetected); Stenmaltophilia Not Reported Not Detected (NotDetected); Strep agal(GrpB) Not Reported Not Detected (NotDetected); Strep pneum Not Reported Not Detected (NotDetected); Strep pyog (GrpA) Not Reported Not Detected (NotDetected); Strep spp Not Reported Not Detected (NotDetected); VIM Resistant Gene Not Detected (NotDetected); mcr-1 Colistin Resistant Gene Not Detected (NotDetected)
--- NOTE | 2023-11-19 03:11 | Urology Consultation ---
Date of Consultation November 19, 2023 Assessment & Plan (1) Urinary retention: I discussed with the nurse attending to the patient. Multiple nurses have made numerous attempts to place Manuel catheters. They said that they were met with resistance upon trying to insert the Manuel catheter. Under sterile conditions I attempted to place Manuel catheter multiple times. I did encounter a great deal of difficulty identifying the patient's urethra and was unable to place Manuel catheter. After attempts to place a Manuel catheter the patient was placed on bedpan to see if she could void spontaneously and she was unable to do so. I discussed this case with my attending physician Dr. Stevens. He recommended obtaining a renal/bladder ultrasound to ensure that the findings on bladder scan were correct. He will evaluate the patient the morning of 11/19/2023 for further recommendations. It should be noted that at the time of my encounter with the patient she was in no distress. History of Present Illness Reason for Consultation: Urinary retention Attending Physician: Noemi Smallwood MD History of Present Illness This is a 78-year-old female who was admitted to [facility] on 11/18/2023 from the [facility]. The patient was brought to the emergency department at [facility] secondary to vomiting. The patient had a recent diagnosis of urinary tract infection and antibiotics were to be initiated however upon the family request the patient was taken to the emergency department. It is unclear what the patient's mental status is however she cannot provide any meaningful subjective information. I was contacted by nursing staff as the medical service requested a urology consultation as patient was found to be in urinary retention. A bladder scan showed the patient had an excess of 800 cc of urine in her bladder and they were unable to place a Manuel catheter therefore by prompting urology consultation. Available imaging that the patient had included a chest x-ray that showed no evidence of pneumonia. Labs included a CBC were white blood cell count and platelet count were normal. Her hemoglobin and hematocrit were 9.5 and 31.6. Chemistry profile showed sodium was 129 with a normal potassium. BUN was 37 with a creatinine of 0.8. I did question the patient and if she felt the need to void which she said yes. I also asked the patient if she was in any discomfort and she replied no. It is nowhere the mention that she did not appear to be in any distress at the time of my encounter with her. Allergies Allergy/AdvReac Type Severity Reaction Status Date / Time divalproex sodium Allergy Severe weakness, Verified 10/20/23 20:36 [From [facility]] ataxia, confusion lidocaine Allergy Severe edema face Verified 10/20/23 20:36 and lips aspirin Allergy Intermediate INTESTINAL Verified 10/20/23 20:36 BLEEDING AND HIVES magnesium citrate Allergy Intermediate HIVES AND Verified 10/20/23 20:36 SWELLING prednisone Allergy Intermediate HIVES; Verified 10/20/23 20:36 TREMORS simethicone Allergy Intermediate Hives/swell Verified 10/20/23 20:36 ing rosiglitazone AdvReac Severe Anemia/swelling/seizure/memory Verified 10/20/23 20:36 loss valproic acid AdvReac Severe weakness/at Verified 10/20/23 20:36 axia/confus ion citalopram AdvReac Intermediate tremors Verified 10/20/23 20:36 clonazepam AdvReac Intermediate Agitated Verified 10/20/23 20:36 metoclopramide AdvReac Intermediate Leg pains Verified 10/20/23 20:36 onion AdvReac Intermediate nausea/vomi Verified 10/20/23 20:36 ting simvastatin AdvReac Intermediate Leg pains Verified 10/20/23 20:36 sulfamethoxazole AdvReac Intermediate Nausea/vomi Verified 10/20/23 20:36 ting trimethoprim AdvReac Intermediate Nausea/vomi Verified 10/20/23 20:36 ting Home Medications Medication Instructions Recorded Confirmed Type loperamide 2 mg tablet 2 mg PO Q6H PRN Diarrhea 12/07/18 11/18/23 History mirtazapine 30 mg tablet (Remeron) 30 mg PO HS 12/07/18 11/18/23 History thiamine HCl (vitamin B1) 100 mg 100 mg PO QAM 12/07/18 11/18/23 History tablet (Vitamin B-1) iron,carbonyl 65 mg-vitamin C 125 1 tab PO QAM 08/30/19 11/18/23 History mg tablet,delayed release (Vitron-C) gabapentin 100 mg capsule 100 mg PO . @0900 09/02/21 11/18/23 History acetaminophen 325 mg tablet 325 mg PO Q6 PRN Pain 01/12/23 11/18/23 History (Tylenol) cyanocobalamin (vitamin B-12) 1,000 mcg IM MONTHLY 01/12/23 11/18/23 History 1,000 mcg/mL injection solution ezetimibe 10 mg tablet (Zetia) 10 mg PO QAM 01/12/23 11/18/23 History latanoprost (PF) 0.005 % eye drops 1 drp ophthalmic (eye) HS 01/12/23 11/18/23 History aripiprazole 5 mg tablet 5 mg PO QAM 03/31/23 11/18/23 History duloxetine 60 mg capsule,delayed 60 mg PO QAM 03/31/23 11/18/23 History release melatonin 5 mg tablet 5 mg PO HS 08/27/23 11/18/23 History phenazopyridine 200 mg tablet 200 mg PO Q8H PRN pain #10 tabs 09/03/23 11/18/23 Rx (Pyridium) multivitamin 1 tab PO QAM 10/20/23 11/18/23 History calcium carbonate 200 mg calcium 500 mg (2.5 x 200 mg calcium (500 10/29/23 11/18/23 Rx (500 mg) chewable tablet (Tums) mg)) PO BID PRN dyspepsia #20 tabs dicyclomine 10 mg capsule 10 mg PO QID PRN abdominal pain 10/29/23 11/18/23 Rx #20 caps insulin glargine 100 unit/mL 40 unit (0.4 mL) subcut BID #10 mL 10/29/23 11/18/23 Rx subcutaneous solution (Lantus U-100 Insulin) oxybutynin chloride 5 mg 10 mg (2 x 5 mg) PO HS 30 days #60 10/29/23 11/18/23 Rx tablet,extended release 24 hr tabs Insta-Glucose 1 applic PO DIRECTED PRN 11/18/23 11/18/23 History HYPOGLYCEMIA <60 Milk of Magnesia 30 ml PO DAILY PRN Constipation 11/18/23 11/18/23 History Saccharomyces boulardii 250 mg 250 mg PO .0800 11/18/23 11/18/23 History capsule (Probiotic (S.boulardii)) acetaminophen 325 mg tablet 650 mg PO Q6H PRN fever > 101 11/18/23 11/18/23 History albuterol sulfate 90 mcg/actuation 2 puff inhalation Q4H PRN 11/18/23 11/18/23 History aerosol inhaler sob/wheezing bisacodyl 10 mg rectal suppository 10 mg NV DAILY PRN Constipation 11/18/23 11/18/23 History (Dulcolax (bisacodyl)) ceftriaxone 1 gram intravenous 1 g IV . DAILY 7 DAYS 11/18/23 11/18/23 History solution glucagon 1 applic IM Q15H PRN hypoglycemia 11/18/23 11/18/23 History <60 hydrocortisone acetate 25 mg 30 mg NV .0900,2100 11/18/23 11/18/23 History rectal suppository (Anucort-HC) levothyroxine 100 mcg tablet 100 mcg PO CAT@0500 11/18/23 11/18/23 History (Synthroid) levothyroxine 75 mcg tablet 75 mcg PO MOTUWETHFRSA@0500 11/18/23 11/18/23 History (Synthroid) lithium carbonate 300 mg capsule 300 mg PO HS 11/18/23 11/18/23 History losartan 100 mg tablet 100 mg PO .0800 11/18/23 11/18/23 History mineral oil 118 ml NV DAILY PRN Constipation 11/18/23 11/18/23 History potassium chloride 20 mEq 20 meq PO BID 11/18/23 11/18/23 History tablet,extended release sodium chloride 0.9 % 100 ml IV .ONE DAY 11/18/23 11/18/23 History Patient History Medical History History of cervical cancer 2017- s/p chemo and XRT Port-A-Cath in place unsure of type Alcoholic cirrhosis quit drinking in 2016 Anxiety disorder PTSD (post-traumatic stress disorder) History of COVID-19 tested positive on a home test ~Beginning of September 2022. patient unsure of exact date. reports symptoms included: sore throat, cough and headache. resolved currently. Hypothyroidism History of GI bleed Poor historian Memory changes r/t fall "long time ago,I don't know when it was". Alert and oriented, poor historian. Hypertension Asthma RARE RES. INH USE Mood disorder [place] Per PCP records 04/2023- "Pt has remote history of seizure d/o with history of cavernosum. She has been on Keppra without issue. " Seizure disorder grand mal > last one > "years ago" Dyslipidemia Bipolar 1 disorder (04/07/14) Ana (04/07/14) HX OF Intracranial hemorrhage resolved> was from fall (2014) Anemia DM (diabetes mellitus) IDDM Surgical History History of bilateral tubal ligation History of repair of rotator cuff RCR History of esophagogastroduodenoscopy (EGD) History of appendectomy History of open reduction and internal fixation (ORIF) procedure Left Femur ORIF with kody. History of cataract surgery bilateral History of colonoscopy Hx of cervical spine surgery pt denies -- states she hurt her neck during a fall "about 5 years ago". ROM wnl. Family History Other Family history non-contributory No family history of adverse response to anesthesia Social History Smoking Status: Unknown if ever smoked Tobacco Type: Cigarettes Second Hand Exposure: No; Do You Dip or Chew Tobacco: No; Hx Alcohol Use: No Hx Substance Use: No Preferred Language: American Communication Ability: Effective Soils Analyst Required: No Beliefs That Will Affect Care: None Current Living Situation: [facility] Other Information That Helps Us Care for You: No Feels Safe at Home: Yes Safety Concerns: Feels Safe At This Time Assistive Devices: Walker Physical Exam Constitutional: no acute distress ENMT: Ears: no external ear abnormality Neck: trachea midline Respiratory: normal respiratory effort; no respiratory distress and no labored breathing Gastrointestinal (Abdomen): Abdomen is soft and nonrigid. It is nondistended. There not appear to be any pain with palpation. Neurologic: Patient was able to move all 4 extremities. She is alert only to person. Results & Data Vital Signs (Past 12 Hours) Vital Signs Temp Pulse Pulse Resp BP Pulse Ox O2 Del Method 11/18/23 23:31 36.6 C 64 20 138/69 94 Room Air 11/18/23 22:00 74 11/18/23 19:39 36.4 C L 75 16 125/74 97 Room Air 11/18/23 19:03 36.2 C L 18 96/46 L 96 Room Air 11/18/23 17:15 Room Air PG Care Time/CCT Total # of Minutes Spent Total Time Spent with Patient: Total time spent is greater than 50% in coordination of care (as documented) at patient's floor/unit and/or counseling patient: Coding Level of Care Code 70492 INT INP/OBS CARE 3/75MIN Diagnoses Urinary retention R33.9
[2023-11-19] MEDS: LEVOTHYROXINE SODIUM 75 MCG TABLET PO SCH (05:00)
--- NOTE | 2023-11-19 06:46 | Ultrasound Report ---
RENAL ULTRASOUND CLINICAL HISTORY: Urinary retention. COMPARISON STUDY: CT of the abdomen and pelvis October 21, 2023. TECHNIQUE: Sonography of the kidneys and the urinary bladder was performed. FINDINGS: The right kidney measures 12.1 x 4.3 x 5.2 cm and the left kidney measures 12.3 x 6.6 x 4.3 cm. There is no hydronephrosis. Renal size and cortical thickness are normal. A subtle 4.1 cm echoge bolivar focus within the midpole of the right kidney is noted. No corresponding abnormality was shown on CT of October 21, 2023. No shadowing calculi are identified. Left ureteral jet was visualized. The r ight jet was not visualized. There is apparent debris within the bladder. Attempt was made to obtain postvoid residual. Patient was unable to void. Bladder volume was 1037 cc. Posterior bladder wall thi ckening is noted. IMPRESSION: 1. No hydronephrosis. 2. Patient unable to void. Distended bladder with estimated volume of 1037 cc. 3. Nonspecific posterior wall thickening. 4. 4.1 cm subtle echogenic focus within the mid to upper pole of the right kidney without correspondi ng abnormality on recent CT. This may be artifactual however other etiologies such as pyelonephritis are within the differential. ACT 112: Negative or not required by law. Electronically signed by: Pelon Su M.D. 11/19/2023 6:43 AM
[2023-11-19] MEDS: EZETIMIBE 10 MG TAB PO SCH (09:01)
[2023-11-19] MEDS: FERROUS SULFATE 325 MG TAB PO SCH (09:01)
[2023-11-19] MEDS: MAGNESIUM OXIDE 400 MG TAB PO SCH (09:01)
[2023-11-19] MEDS: DULoxetine HCL 60 MG CAP PO SCH (09:01)
[2023-11-19] MEDS: GABAPENTIN 100 MG CAP PO SCH (09:01)
[2023-11-19] MEDS: POTASSIUM CHLORIDE CRTAB 20 MEQ TABCR PO SCH ×2 (09:01→20:59)
[2023-11-19] MEDS: MULTIVITAMIN TAB PO SCH (09:01)
[2023-11-19] MEDS: ARIPiprazole 5 MG TAB PO SCH (09:01)
[2023-11-19] MEDS: HEPARIN SOD 5,000 UNIT/0.5 ML VIAL SQ SCH ×2 (09:01→20:58)
[2023-11-19] MEDS: THIAMINE HCL 100 MG TAB PO SCH (09:01)
[2023-11-19] MEDS: ASCORBIC ACID 500 MG TAB PO SCH (09:02)
[2023-11-19] MEDS: LANTUS PER UNIT CHARGE SC SCH ×2 (09:14→20:58)
[2023-11-19] MEDS: INSULIN ASPART PER UNIT CHARGE SC SCH ×4 (09:15→20:58)
--- NOTE | 2023-11-19 09:55 | Hospitalist Progress Note ---
Date of Service November 19, 2023 Assessment & Plan (1) Acute hyperglycemia: (2) Acute dehydration: (3) Hypomagnesemia: (4) Acute metabolic encephalopathy: (5) UTI (urinary tract infection): Plan 78 yr old F who has significant PMH of T2DM insulin dependent, HTN ,HLD, Hypoth yroidism, asthma, cirrhosis, portal HTN, b12 def, radiation proctitis, hx of cervical adenocarcinoma, osteoporosis, epilepsy, STACI, obsessive compulsive disorder, mood disorder, hx of SAH, biploar disorder and PTSD who presents from [facility] 01/01 to hyperglycemia, UTI and worsened mental status. Sepsis UTI GNR bacteremia Encephalopathy likely due to infection Patient presented with worsening mental status UA suggestive of UTI Urine culture in lab growing GNR and Group B strep Blood cultures growing GNR My review of previous cultures shows patient has recurrent UTI and some with bacteremia Completed Abx on recent admission for UTI per discharge summary Had Uro visit on 11/09/23 with cystoscopy Previous Ucx grew E coli. One from 03/2023 was pansensitive. One from 09/2023 has some resistance. I reviewed Abd CT from 10/22/23 Renal USS this admission shows 4.1 cm subtle echogenic focus within the mid to upper pole of the right kidney without corresponding abnormality on recent CT This finding with bacteremia/clinical picture suggests Acute pyelonephritis Blood culture PCR from current blood cx is indicating E coli and no special resistance noted Reviewed local sensitivity profile with Pharm Based on the patient's hx, will change antibiotics to Cefepime for now until further ID eval/further results ID consult placed. I also discussed the case with ID Dr Valiente Seem to have urinary retention Urology consulted and will attempt kim placement Acute hyperglycemia T2DM insulin dependent Per Admitting Provider, daughter was unsure of insulin management at facility HbA1c 8.1 on 10/20/23 Glycemic pharm consulted Lantus/novolog per protocol Hypomagnesemia Mg 1.3 on admission Repleted Recheck this AM Hyponatremia Na was 125 on admission. When corrected for hyperglycemia, Na was 131 Awaiting results of CMP Cirrhosis History of decompensation: none; autoimmune workup negative Last EGD 2022: mild portal gastropathy, no varices Last C-[facility], colonoscopy, non-bleeding colonic angioectasis, limited sigmois diverticulosis, / no specimens collected 12/2022 Ammonia WNL. No asterixis Hx of radiation proctitis Diarrhea Mesalamine reportedly stopped due to patient declining Previously was on hydrocortisone suppository but this was not done at facility Will monitor for now as she is not having sx Prior cervical adenocarcinoma s/p radiation Chronic vaginal bleeding Recent cystoscopy 09/03/2023: Severe varicosity throughout bladder neck and urethra with significant inflammation and areas of active bleeding. Epilepsy, tonic-clonic Bipolar disorder Continue gabapentin, lithium, duloxetine and mirtazapine Review of chart/DC summary did not show any change recently Vina level was within normal 1 on admission Hypothyroidism Chronic, stable Continue levothyroxine Dispo: tele, daughter does not want patient to return to [facility], will need to look for other facilities PCP: Emil with [facility]; Dr. Neri at [facility] DNR/DNI I spent a total of 75 minutes coordinating, documenting and providing care for this patient excluding time spent in performance of separately billed services Admission and Anticipated Discharge Date Admission Date: November 18, 2023 Subjective 78 year old who with PMH of T2DM insulin dependent, HTN ,HLD, Hypothyroidism, asthma, cirrhosis, portal HTN, b12 def, radiation proctitis, hx of cervical adenocarcinoma, osteoporosis, epilepsy, STACI, obsessive compulsive disorder, mood disorder, hx of SAH, biploar disorder and PTSD who presents from [facility] for hyperglycemia, UTI and worsened mental status Patient has had recurrent UTI and bacteremia in the past Was seen by Uro outpatient on 11/09/23 and cystoscopy. Patient seen and examined She is alert and oriented to person only. Confused ROS is limited due to mental status. Physical Exam Constitutional: + well hydrated; no acute distress Eyes: PERRL, conjunctivae normal, anicteric sclerae ENMT: external ear and nose normal, oropharynx normal Respiratory: normal respiratory effort, lungs clear to auscultation Cardiovascular: Rate/Rhythm: regular rate and regular rhythm S1 S2 Gastrointestinal (Abdomen): normal bowel sounds, soft, nontender, no hepatosplenomegaly Musculoskeletal: No pedal edema Neurologic: PERRL, EOMI, accommodation nl, no face palsy, no dysarthria Psychiatric: Orientation: alert and oriented to person; + not oriented to place and + not oriented to time Confused Results & Data Results & Data Vital Signs (Past 12 Hours) Vital Signs Temp Pulse Pulse Resp BP Pulse Ox O2 Del Method 11/19/23 07:54 36.8 C 81 16 108/39 L 94 Room Air 11/19/23 07:29 81 11/19/23 04:08 36.3 C L 87 18 111/44 L 94 Room Air 11/18/23 23:31 36.6 C 64 20 138/69 94 Room Air 11/18/23 22:00 74 Laboratory Results Abnormal lab results 11/18/23 11/18/23 11/18/23 Range/Units 10:05 10:37 13:26 RBC 3.76 L (4.20-5.40) M/uL Hgb 9.5 L (12.0-16.0) g/dl Hct 31.6 L (37.0-47.0) % MCHC 30.1 L (32.0-36.0) g/dL RDW Std Deviation 48.3 H (36.4-46.3) fL RDW Coeff of Lili 15.9 H (11.5-14.5) % Lymph # (Auto) 0.71 L (1.20-3.40) K/uL PT 12.9 H (9.0-12.0) Seconds INR 1.2 H (0.9-1.1) VBG pCO2 37 L (38-50) mmHg Sodium 127 L (136-145) mmol/L Carbon Dioxide (21-32) mmol/L BUN 44 H (6-23) mg/dl BUN/Creatinine Ratio 44.9 H (10-20) Glucose 520 H* (70-99(Fasting)) mg/dl POC Glucose 407 H* (70-99) mg/dl Calcium 8.5 L (8.6-10.3) mg/dl Magnesium 1.3 L (1.7-2.4) mg/dl Alkaline Phosphatase 196 H (34-104) U/L Albumin 3.2 L (3.4-5.0) gm/dl Procalcitonin 3.22 H (0-0.5) ng/ml Enterobacterales (PCR) DETECTED A (NotDetected) E. coli (PCR) DETECTED A (NotDetected) 11/18/23 11/18/23 11/18/23 Range/Units 16:23 18:38 20:12 RBC (4.20-5.40) M/uL Hgb (12.0-16.0) g/dl Hct (37.0-47.0) % MCHC (32.0-36.0) g/dL RDW Std Deviation (36.4-46.3) fL RDW Coeff of Lili (11.5-14.5) % Lymph # (Auto) (1.20-3.40) K/uL PT (9.0-12.0) Seconds INR (0.9-1.1) VBG pCO2 (38-50) mmHg Sodium 129 L (136-145) mmol/L Carbon Dioxide 18 L (21-32) mmol/L BUN 37 H (6-23) mg/dl BUN/Creatinine Ratio 45.1 H (10-20) Glucose 263 H (70-99(Fasting)) mg/dl POC Glucose 319 H* 200 H (70-99) mg/dl Calcium 8.4 L (8.6-10.3) mg/dl Magnesium (1.7-2.4) mg/dl Alkaline Phosphatase (34-104) U/L Albumin (3.4-5.0) gm/dl Procalcitonin (0-0.5) ng/ml Enterobacterales (PCR) (NotDetected) E. coli (PCR) (NotDetected) 11/19/23 Range/Units 08:16 RBC (4.20-5.40) M/uL Hgb (12.0-16.0) g/dl Hct (37.0-47.0) % MCHC (32.0-36.0) g/dL RDW Std Deviation (36.4-46.3) fL RDW Coeff of Lili (11.5-14.5) % Lymph # (Auto) (1.20-3.40) K/uL PT (9.0-12.0) Seconds INR (0.9-1.1) VBG pCO2 (38-50) mmHg Sodium (136-145) mmol/L Carbon Dioxide (21-32) mmol/L BUN (6-23) mg/dl BUN/Creatinine Ratio (10-20) Glucose (70-99(Fasting)) mg/dl POC Glucose 101 H (70-99) mg/dl Calcium (8.6-10.3) mg/dl Magnesium (1.7-2.4) mg/dl Alkaline Phosphatase (34-104) U/L Albumin (3.4-5.0) gm/dl Procalcitonin (0-0.5) ng/ml Enterobacterales (PCR) (NotDetected) E. coli (PCR) (NotDetected)
[2023-11-19] MEDS ORDERED: cefTRIAXone SODIUM 2,000 MG in DEXTROSE 5 % MINI-B 50 ML IV SCH (11:00)
[2023-11-19] MEDS: CEFEPIME 2,000 MG in SYRINGE 0 ML IV SCH ×2 (11:03→22:06)
--- NOTE | 2023-11-19 11:04 | Urology Progress Note ---
<Statement entered by Guille Zaragoza MD - 11/19/23 12:28> I have discussed Ms. Rowland's case with EDWARDO Martinez and agree with the above documentation. Manuel catheter placement was successful at the bedside. Patient tolerated the procedure well. Would recommend maintaining Manuel catheter for at least 1 week to allow bladder rest. Continue to treat infection and narrow coverage as culture data becomes available. Urology will arrange outpatient follow-up for ongoing bladder management. -Guille Zaragoza MD. Date of Service November 19, 2023 Assessment & Plan (1) Urinary retention: (2) Urinary tract infection: (3) Bacteremia: Plan: Follow-up urinary retention; UTI and bacteremia Manuel catheter was unable to be placed overnight, patient has not voided Patient afebrile, hemodynamically stable Labs reviewedcreatinine 0.82, no leukocytosis Urine and blood cultures w/ gram-negative bacilli Ceftriaxone transitioned to cefepime Continue broad-spectrum antibiotics and narrow per sensitivity data when available Patient was evaluated in conjunction with Dr. Zaragoza. Patient initially declined Manuel catheter placement this am. We discussed recommendation for Manuel catheter placement for management of urinary retention and source control of infection. Discussed risks of not placing the Manuel catheter including worsening infection, renal failure, bladder perforation. I discussed Manuel catheter placement with patient's daughter, Bessie, over the phone due to patient's cognitive status. Bessie is in agreement with placement of Manuel catheter. We revisited patient later in the am and she was agreeable to Manuel catheter placement. A 16F coude catheter was successfully placed at bedside, patient tolerated procedure well. Recommend maintain Manuel catheter for management of urinary retention. Plan to continue with catheter until acute infection has been treated and follow-up with urology. Will need to discuss long-term management, possible chronic catheter with monthly exchanges. Continue supportive care and antibiotics per hospital medicine service. Will arrange follow-up with our service outpatient. will sign off, contact our service with any additional questions or concerns. Admission and Anticipated Discharge Date Admission Date: November 18, 2023 Subjective Patient seen and evaluated this morning with Dr. Zaragoza She is awake and eating breakfast Alert, not oriented to time or place, does not tell us her name She reports sensation of needing to void, but has been unable to void Notes some mild suprapubic discomfort ROS limited due to cognitive status Review of Systems Constitutional: as per Subjective / HPI Gastrointestinal: as per Subjective / HPI Genitourinary: as per Subjective / HPI Physical Exam Constitutional: no acute distress Respiratory: normal respiratory effort; no respiratory distress and no labored breathing Cardiovascular: Extremities: no pedal edema Musculoskeletal: Head/Neck/Chest: normocephalic Neurologic: awake Psychiatric: Orientation: alert; + not oriented to place and + not oriented to time Genitourinary: Bladder appears distended, no significant pain with palpation of the bladder Patient was prepped and draped in usual sterile fashion. A well-lubricated 16 Upper Sor[place] coud catheter was placed per urethra with return of large volume of yellow urine. Balloon was inflated to 10 mL. A urine sample was collected and given to RN. Patient tolerated procedure well, no complications noted. Results & Data Vital Signs (Past 12 Hours) Vital Signs Temp Pulse Pulse Resp BP Pulse Ox O2 Del Method 11/19/23 10:01 Room Air 11/19/23 07:54 36.8 C 81 16 108/39 L 94 Room Air 11/19/23 07:29 81 11/19/23 04:08 36.3 C L 87 18 111/44 L 94 Room Air 11/18/23 23:31 36.6 C 64 20 138/69 94 Room Air PG Care Time/CCT Total # of Minutes Spent Total Time Spent with Patient: Total time spent is greater than 50% in coordination of care (as documented) at patient's floor/unit and/or counseling patient: Coding Level of Care Code 84004 SUB INP/OBS CARE 3/50MIN Diagnoses Urinary retention R33.9 Urinary tract infection N30.00 Hematuria presence: without hematuria Urinary tract infection type: acute cystitis Bacteremia R78.81 Time Spent (min) 50 (2) Urinary tract infection Hematuria presence: without hematuria Urinary tract infection type: acute cystitis Qualified Code(s): N30.00 - Acute cystitis without hematuria
[2023-11-19 11:19] LABS: Appearance Urine Clear (Clear); Bacteria Urine Automated Negative (Negative); Bilirubin Urine Negative (Negative); Blood Urine 2+ (Negative); Color Urine Yellow; Epithelial Cell Urine Auto >30 /lpf (0-5); Glucose Urine UA Trace (Negative); Ketones Urine Negative (Negative); Leukocyte Esterase Urine 2+ (Negative); Nitrite Urine Negative (Negative); Protein Urine 1+ (Negative); RBC Urine Automated 0-4 /hpf (0-4); Specific Gravity Urine 1.013 (1.000-1.030); Urobilinogen Urine Negative (Negative); WBC Urine Automated >30 /hpf (0-5); pH Urine 6.5 (4.5-7.5)
[2023-11-19 11:27] LABS: Hematocrit (blood only) 26.4 % (37.0-47.0); Hemoglobin 7.8 g/dl (12.0-16.0); Mean Corpuscular Hemoglobin 25.1 pg (25.0-34.0); Mean Corpuscular Hgb Conc 29.5 g/dL (32.0-36.0); Mean Corpuscular Volume 84.9 fL (80.0-100.0); Mean Platelet Volume 9.4 fL (9.4-12.4); Platelet Count 191 K/uL (130-400); RDW Coefficient of Variation 16.2 % (11.5-14.5); RDW Standard Deviation 50.4 fL (36.4-46.3); Red Blood Count 3.11 M/uL (4.20-5.40); White Blood Count 5.45 K/ul (4.8-10.8)
[2023-11-19 11:39] LABS: Albumin Globulin Ratio 0.9 (0.9-2); Albumin Level 2.9 gm/dl (3.4-5.0); BUN Creatinine Ratio 38.4 (10-20); Bilirubin,Total 0.3 mg/dl (0.2-1.0); Calcium 8.4 mg/dl (8.6-10.3); Creatinine Clr Calc Pharmacy 62.8 ml/min; Est GFR (African American) 92.1 ml/min; Est GFR (Non-African American) 79.4 ml/min; Globulin 3.1 gm/dl (2.5-4.0); Magnesium 1.9 mg/dl (1.7-2.4); Phosphorus 2.3 mg/dl (2.5-4.9); Potassium 4.2 mmol/L (3.5-5.1)
--- NOTE | 2023-11-19 13:17 | Pharmacy Report ---
Pharmacy Glycemic Short Note 2 - Date of Service November 19, 2023 - Glycemic Short BSG Results (Last 24 hours): 11/18/23 11/18/23 11/18/23 13:26 16:23 18:38 Glucose 263 H POC Glucose 407 H* 319 H* 11/18/23 11/19/23 11/19/23 20:12 08:16 10:27 Glucose 131 H POC Glucose 200 H 101 H 11/19/23 11:54 Glucose POC Glucose 129 H OUTPATIENT ANTIDIABETIC REGIMEN: * Lantus 40 units SC BID ASSESSMENT: 11/19: * Patient received total 121 units of insulin yesterday; 80 units basal + 41 units bolus. * On admission BSG = 407 mg/dl, they trended down to 101 mg/dl this morning whic h was the fasting BSG today. * Basal was continued at 40 units this AM but scaled back to 20-30 units for HS to prevent hypoglycemia in AM, although patient did require 40-50 units BID last admission in 09/2023 * Pre-lunch BSG = 129 mg/dl today, Novolog parameters slightly loosened at lunch. 11/18/23 * Karla is a 78 YOF admitted for weakness and UTI with a history of T2DM. Pharmacy has been consulted for glycemic management while in patient. She is known the glycemic service and we will dose insulin based on previously successful values * Fasting BSG in 500's this AM, 10 unit IV regular insulin bolus given this AM. BSG check 2 hours later trending downward * Lantus 40 units given with lunch, Novolog initiated at a weight based stress of 3, received 11 units of Novolog with lunch. * Will order previously effective Novolog regimen to start with dinner. * If BSGs remain elevated, may need to start an insulin infusion. PLAN FOR INPATIENT GLYCEMIC CONTROL: * Basal insulin * Lantus 40 units SQ today AM, then 30 units SQ QAM * Lantus 20-30 units SQ HS * Bolus insulin * NovoLog per scale ACHS or Q6hrs while NPO * Goal Range: Low 110 mg/dL - High 140 mg/dL * Correction Factor: 15 mg/dL/unit * Nutritional / Prandial insulin per carb ratio of 1 unit per 5 grams CHO consumed
--- NOTE | 2023-11-19 15:24 | Infectious Disease Consult ---
Date of Service November 19, 2023 Telehealth Information I performed this visit using a real-time telehealth connection between my location and the patients location ([facility]). After connecting through interactive tele-video, patient was identified by name and date of and/or wristband check.Patient (or authorized healthcare public relations representative) was informed that this was a telemedicine visit and it was being conducted confidentially over secure lines. My office door was closed and no one else was present in the room with me.Patient (or authorized healthcare public relations representative) provided consent to proceed with the visit, expressed an understanding of privacy and security of the telemedicine visit, and gave permission to have a hospital public relations representative in the room in order to assist with the visit and to conduct portions of the visit, as needed. I informed the patient (or authorized healthcare public relations representative) that I reviewed their record and presented the opportunity for them to ask any questions regarding the visit today. The patient agreed to participate. Assessment & Plan (1) Acute pyelonephritis: (2) E. coli bacteremia: (3) Acute metabolic encephalopathy: (4) [facility] resident: (5) Cervical cancer: Plan - We agree with IV cefepime for now. - We will F/U on the blood and urine Cx and adjust antibiotics as needed. She will require a 14 day course with potential stepping down to oral regimen on discharge. - Thank you for consulting ID. We will continue to follow. History of Present Illness History of Present Illness Most of Hx was obtained from medical records and talking to Dr. Blackwell as the patient was encephalopathic. Ms. 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 Most of the history was obtained from medical records and the patient was encephalopathic. She was recently hospitalized at [facility] for around 7 days because of radiation proctitis and diarrhea. She was also treated for acute cystitis with E coli with IV ceftriaxone while inpatient. Around 1 day prior to presentation, she was diagnosed with UTI at the prison when she started having vomiting and was noticed to have very high blood sugar. Therefore, her daughter recommended that she be transferred to [facility] for admission. On presentation, she was afebrile, tachycardic, normotensive and saturating 94% at room air. Her blood workup was significant for normocytic anemia and markedly high blood sugar (more than 400). Her urine showed more than 30 pyuria but was negative for bacteria. Her respiratory pathogen panel was negative. Shortly after admission her blood culture came back positive for E coli. Id team was consulted for further recommendations and to help with the management of E coli bacteremia and presumed complicated urinary tract infection. Allergies Allergy/AdvReac Type Severity Reaction Status Date / Time divalproex sodium Allergy Severe weakness, Verified 10/20/23 20:36 [From Depakote] ataxia, confusion lidocaine Allergy Severe edema face Verified 10/20/23 20:36 and lips aspirin Allergy Intermediate INTESTINAL Verified 10/20/23 20:36 BLEEDING AND HIVES magnesium citrate Allergy Intermediate HIVES AND Verified 10/20/23 20:36 SWELLING prednisone Allergy Intermediate HIVES; Verified 10/20/23 20:36 TREMORS simethicone Allergy Intermediate Hives/swell Verified 10/20/23 20:36 ing rosiglitazone AdvReac Severe Anemia/swelling/seizure/memory Verified 10/20/23 20:36 loss valproic acid AdvReac Severe weakness/at Verified 10/20/23 20:36 axia/confus ion citalopram AdvReac Intermediate tremors Verified 10/20/23 20:36 clonazepam AdvReac Intermediate Agitated Verified 10/20/23 20:36 metoclopramide AdvReac Intermediate Leg pains Verified 10/20/23 20:36 onion AdvReac Intermediate nausea/vomi Verified 10/20/23 20:36 ting simvastatin AdvReac Intermediate Leg pains Verified 10/20/23 20:36 sulfamethoxazole AdvReac Intermediate Nausea/vomi Verified 10/20/23 20:36 ting trimethoprim AdvReac Intermediate Nausea/vomi Verified 10/20/23 20:36 ting Home Medications Medication Instructions Recorded Confirmed Type loperamide 2 mg tablet 2 mg PO Q6H PRN Diarrhea 12/07/18 11/18/23 History mirtazapine 30 mg tablet (Remeron) 30 mg PO HS 12/07/18 11/18/23 History thiamine HCl (vitamin B1) 100 mg 100 mg PO QAM 12/07/18 11/18/23 History tablet (Vitamin B-1) iron,carbonyl 65 mg-vitamin C 125 1 tab PO QAM 08/30/19 11/18/23 History mg tablet,delayed release (Vitron-C) gabapentin 100 mg capsule 100 mg PO . @0900 09/02/21 11/18/23 History acetaminophen 325 mg tablet 325 mg PO Q6 PRN Pain 01/12/23 11/18/23 History (Tylenol) cyanocobalamin (vitamin B-12) 1,000 mcg IM MONTHLY 01/12/23 11/18/23 History 1,000 mcg/mL injection solution ezetimibe 10 mg tablet (Zetia) 10 mg PO QAM 01/12/23 11/18/23 History latanoprost (PF) 0.005 % eye drops 1 drp ophthalmic (eye) HS 01/12/23 11/18/23 History aripiprazole 5 mg tablet 5 mg PO QAM 03/31/23 11/18/23 History duloxetine 60 mg capsule,delayed 60 mg PO QAM 03/31/23 11/18/23 History release melatonin 5 mg tablet 5 mg PO HS 08/27/23 11/18/23 History phenazopyridine 200 mg tablet 200 mg PO Q8H PRN pain #10 tabs 09/03/23 11/18/23 Rx (Pyridium) multivitamin 1 tab PO QAM 10/20/23 11/18/23 History calcium carbonate 200 mg calcium 500 mg (2.5 x 200 mg calcium (500 10/29/23 Rx (500 mg) chewable tablet (Tums) mg)) PO BID PRN dyspepsia #20 tabs dicyclomine 10 mg capsule 10 mg PO QID PRN abdominal pain 10/29/23 11/18/23 Rx #20 caps insulin glargine 100 unit/mL 40 unit (0.4 mL) subcut BID #10 mL 10/29/23 11/18/23 Rx subcutaneous solution (Lantus U-100 Insulin) oxybutynin chloride 5 mg 10 mg (2 x 5 mg) PO HS 30 days #60 10/29/23 11/18/23 Rx tablet,extended release 24 hr tabs Insta-Glucose 1 applic PO DIRECTED PRN 11/18/23 11/18/23 History HYPOGLYCEMIA <60 Milk of Magnesia 30 ml PO DAILY PRN Constipation 11/18/23 11/18/23 History Saccharomyces boulardii 250 mg 250 mg PO .0800 11/18/23 11/18/23 History capsule (Probiotic (S.boulardii)) acetaminophen 325 mg tablet 650 mg PO Q6H PRN fever > 101 11/18/23 11/18/23 History albuterol sulfate 90 mcg/actuation 2 puff inhalation Q4H PRN 11/18/23 11/18/23 History aerosol inhaler sob/wheezing bisacodyl 10 mg rectal suppository 10 mg SC DAILY PRN Constipation 11/18/23 11/18/23 History (Dulcolax (bisacodyl)) ceftriaxone 1 gram intravenous 1 g IV . DAILY 7 DAYS 11/18/23 11/18/23 History solution glucagon 1 applic IM Q15H PRN hypoglycemia 11/18/23 11/18/23 History <60 hydrocortisone acetate 25 mg 30 mg SC .0900,2100 11/18/23 11/18/23 History rectal suppository (Anucort-HC) levothyroxine 100 mcg tablet 100 mcg PO CAT@0500 11/18/23 11/18/23 History (Synthroid) levothyroxine 75 mcg tablet 75 mcg PO MOTUWETHFRSA@0500 11/18/23 11/18/23 History (Synthroid) lithium carbonate 300 mg capsule 300 mg PO HS 11/18/23 11/18/23 History losartan 100 mg tablet 100 mg PO .0800 11/18/23 11/18/23 History mineral oil 118 ml SC DAILY PRN Constipation 11/18/23 11/18/23 History potassium chloride 20 mEq 20 meq PO BID 11/18/23 11/18/23 History tablet,extended release sodium chloride 0.9 % 100 ml IV .ONE DAY 11/18/23 11/18/23 History Patient History Medical History History of cervical cancer 2017- s/p chemo and XRT Port-A-Cath in place unsure of type Alcoholic cirrhosis quit drinking in 2016 Anxiety disorder PTSD (post-traumatic stress disorder) History of COVID-19 tested positive on a home test ~Beginning of September 2022. patient unsure of exact date. reports symptoms included: sore throat, cough and headache. resolved currently. Hypothyroidism History of GI bleed Poor historian Memory changes r/t fall "long time ago,I don't know when it was". Alert and oriented, poor historian. Hypertension Asthma RARE RES. INH USE Mood disorder [place] Per PCP records 04/2023- "Pt has remote history of seizure d/o with history of cavernosum. She has been on Keppra without issue. " Seizure disorder grand mal > last one > "years ago" Dyslipidemia Bipolar 1 disorder (04/07/14) Ana (04/07/14) HX OF Intracranial hemorrhage resolved> was from fall (2013) Anemia DM (diabetes mellitus) IDDM Surgical History History of bilateral tubal ligation History of repair of rotator cuff RCR History of esophagogastroduodenoscopy (EGD) History of appendectomy History of open reduction and internal fixation (ORIF) procedure Left Femur ORIF with kody. History of cataract surgery bilateral History of colonoscopy Hx of cervical spine surgery pt denies -- states she hurt her neck during a fall "about 5 years ago". ROM wnl. Family History Other Family history non-contributory No family history of adverse response to anesthesia Social History Smoking Status: Unknown if ever smoked Tobacco Type: Cigarettes Second Hand Exposure: No; Do You Dip or Chew Tobacco: No; Hx Alcohol Use: No Hx Substance Use: No Preferred Language: Slovak Communication Ability: Effective Licensed Pharmacist Required: No Beliefs That Will Affect Care: None Current Living Situation: Correction Other Information That Helps Us Care for You: No Feels Safe at Home: Yes Safety Concerns: Feels Safe At This Time Assistive Devices: Walker Review of Systems Couldn't be obtained as the patient was encephalopathic. Physical Exam Couldn't be obtained as the consult was performed via Telemed. Results & Data Vital Signs (Past 12 Hours) Vital Signs Temp Pulse Pulse Resp BP Pulse Ox O2 Del Method 11/19/23 12:06 36.9 C 69 16 119/52 L 97 Room Air 11/19/23 10:01 Room Air 11/19/23 07:54 36.8 C 81 16 108/39 L 94 Room Air 11/19/23 07:29 81 11/19/23 04:08 36.3 C L 87 18 111/44 L 94 Room Air Laboratory Results Microbiology: 11/18: Urine culture growing Gram-negative bacilli and group B strep 11/18: 3/4 bottles of blood cultures growing Gram-negative bacilli (identified as E coli via [employer]) 11/19: 2 sets of blood culture pending 11/19: Urine clean catch culture pending Diagnostic Findings US renal on 11/19: 1. No hydronephrosis. 2. Patient unable to void. Distended bladder with estimated volume of 1037 cc. 3. Nonspecific posterior wall thickening. 4. 4.1 cm subtle echogenic focus within the mid to upper pole of the right kidney without corresponding abnormality on recent CT. This may be artifactual however other etiologies such as pyelonephritis are within the differential.
[2023-11-19] MEDS: ACETAMINOPHEN 325 MG TAB PO PRN (19:38)
[2023-11-19] MEDS: LATANOPROST 0.005% OP SOLN 2.5 ML BTL OP SCH (20:59)
[2023-11-19] MEDS: MIRTAZAPINE TAB 15 MG TAB PO SCH (20:59)
[2023-11-19] MEDS: OXYBUTYNIN CHLORIDE XL 5 MG TABCR PO SCH (20:59)
[2023-11-19] MEDS: LITHIUM CARBONATE 300 MG TAB PO SCH (20:59)
[2023-11-19] MEDS: MELATONIN 3 MG TAB PO SCH (20:59)
[2023-11-20] MEDS: LEVOTHYROXINE SODIUM 75 MCG TABLET PO SCH (04:58)
[2023-11-20] MEDS: ASCORBIC ACID 500 MG TAB PO SCH (08:09)
[2023-11-20] MEDS: FERROUS SULFATE 325 MG TAB PO SCH (08:09)
[2023-11-20] MEDS: MULTIVITAMIN TAB PO SCH (08:10)
[2023-11-20] MEDS: ARIPiprazole 5 MG TAB PO SCH (08:10)
[2023-11-20] MEDS: HEPARIN SOD 5,000 UNIT/0.5 ML VIAL SQ SCH ×2 (08:10→21:11)
[2023-11-20] MEDS: EZETIMIBE 10 MG TAB PO SCH (08:10)
[2023-11-20] MEDS: DULoxetine HCL 60 MG CAP PO SCH (08:10)
[2023-11-20] MEDS: GABAPENTIN 100 MG CAP PO SCH (08:10)
[2023-11-20] MEDS: POTASSIUM CHLORIDE CRTAB 20 MEQ TABCR PO SCH ×2 (08:10→21:12)
[2023-11-20] MEDS: MAGNESIUM OXIDE 400 MG TAB PO SCH (08:10)
[2023-11-20] MEDS: THIAMINE HCL 100 MG TAB PO SCH (08:10)
[2023-11-20] MEDS ORDERED: LANTUS PER UNIT CHARGE SC SCH (09:00)
[2023-11-20 09:01] LABS: Hematocrit (blood only) 29.1 % (37.0-47.0); Hemoglobin 8.5 g/dl (12.0-16.0); Mean Corpuscular Hgb Conc 29.2 g/dL (32.0-36.0); Mean Corpuscular Volume 85.6 fL (80.0-100.0); Mean Platelet Volume 9.3 fL (9.4-12.4); Platelet Count 196 K/uL (130-400); RDW Standard Deviation 51.2 fL (36.4-46.3); White Blood Count 4.65 K/ul (4.8-10.8)
[2023-11-20] MEDS: INSULIN ASPART PER UNIT CHARGE SC SCH ×4 (09:03→21:11)
[2023-11-20 09:07] LABS: BUN Creatinine Ratio 32.3 (10-20); Calcium 8.9 mg/dl (8.6-10.3); Creatinine Clr Calc Pharmacy 70.5 ml/min; Est GFR (African American) 99.3 ml/min; Est GFR (Non-African American) 85.6 ml/min; Magnesium 1.8 mg/dl (1.7-2.4); Phosphorus 3.2 mg/dl (2.5-4.9); Potassium 4.6 mmol/L (3.5-5.1)
--- NOTE | 2023-11-20 09:22 | Hospitalist Progress Note ---
Date of Service November 20, 2023 Assessment & Plan (1) Acute hyperglycemia: (2) Acute dehydration: (3) Hypomagnesemia: (4) Acute metabolic encephalopathy: (5) UTI (urinary tract infection): Plan 78 yr old F who has significant PMH of T2DM insulin dependent, HTN ,HLD, Hypoth yroidism, asthma, cirrhosis, portal HTN, b12 def, radiation proctitis, hx of cervical adenocarcinoma, osteoporosis, epilepsy, STCAI, obsessive compulsive disorder, mood disorder, hx of SAH, biploar disorder and PTSD who presents from [facility] 01/01 to hyperglycemia, UTI and worsened mental status. Sepsis UTI GNR bacteremia Encephalopathy likely due to infection Patient presented with worsening mental status UA suggestive of UTI Urine culture in lab growing GNR and Group B strep Blood cultures growing GNR My review of previous cultures shows patient has recurrent UTI and some with bacteremia Completed Abx on recent admission for UTI per discharge summary Had Uro visit on 11/09/23 with cystoscopy Previous Ucx grew E coli. One from 03/2023 was pansensitive. One from 09/2023 has some resistance. I reviewed Abd CT from 10/22/23 Renal USS this admission shows 4.1 cm subtle echogenic focus within the mid to upper pole of the right kidney without corresponding abnormality on recent CT This finding with bacteremia/clinical picture suggests Acute pyelonephritis Blood culture PCR from current blood cx is indicating E coli and no special resistance noted ID recs appreciated Continue IV cefepime Repeat blood cultures from 11/19/23 negative so far Procalcitonin trended down from 3.22 to 0.95 Had urinary retention Now has a kim placed by Urology Urology recommends continuing kim until outpatient urology follow up Acute hyperglycemia T2DM insulin dependent Per Admitting Provider, daughter was unsure of insulin management at facility HbA1c 8.1 on 10/20/23 Glycemic pharm consulted Lantus/novolog per protocol Hypomagnesemia Mg 1.3 on admission Repleted Mg is 1.8 today Hyponatremia Na was 125 on admission. When corrected for hyperglycemia, Na was 131 Na is 132 today Cirrhosis History of decompensation: none; autoimmune workup negative Last EGD 2022: mild portal gastropathy, no varices Last [facility], colonoscopy, non-bleeding colonic angioectasis, limited sigmois diverticulosis, / no specimens collected 12/2022 Ammonia WNL. No asterixis Hx of radiation proctitis Diarrhea Mesalamine reportedly stopped due to patient declining Previously was on hydrocortisone suppository but this was not done at facility Will monitor for now as she is not having sx Prior cervical adenocarcinoma s/p radiation Chronic vaginal bleeding Recent cystoscopy 09/03/2023: Severe varicosity throughout bladder neck and urethra with significant inflammation and areas of active bleeding. Epilepsy, tonic-clonic Bipolar disorder Continue gabapentin, lithium, duloxetine and mirtazapine Review of chart/DC summary did not show any change recently [place] level was within normal 1 on admission Hypothyroidism Chronic, stable Continue levothyroxine Dispo: Daughter does not want patient to return to [facility], will need to look for other facilities PCP: Emil with [facility]; Dr. Neri at [facility] DNR/DNI I spent a total of 55 minutes coordinating, documenting and providing care for this patient excluding time spent in performance of separately billed services Admission and Anticipated Discharge Date Admission Date: November 18, 2023 Subjective 78 year old who with PMH of T2DM insulin dependent, HTN ,HLD, Hypothyroidism, asthma, cirrhosis, portal HTN, b12 def, radiation proctitis, hx of cervical adenocarcinoma, osteoporosis, epilepsy, STACI, obsessive compulsive disorder, mood disorder, hx of SAH, biploar disorder and PTSD who presents from [facility] for hyperglycemia, UTI and worsened mental status Patient has had recurrent UTI and bacteremia in the past Was seen by Uro outpatient on 11/09/23 and had cystoscopy. Patient seen and examined She is alert, oriented to person, place and month today She is not confused. Answers questions appropriately Denied any headache, dizziness, fever, chills, nausea, diarrhea Denied chest pain, cough, shortness of breath Reports mild low abd pain Physical Exam Constitutional: + well hydrated; no acute distress Eyes: PERRL, conjunctivae normal, anicteric sclerae ENMT: external ear and nose normal, oropharynx normal Respiratory: normal respiratory effort, lungs clear to auscultation Cardiovascular: Rate/Rhythm: regular rate and regular rhythm S1 S2 Gastrointestinal (Abdomen): normal bowel sounds, soft, nontender, no hepatosplenomegaly Musculoskeletal: No pedal edema Neurologic: PERRL, EOMI, accommodation nl, no face palsy, no dysarthria Psychiatric: Orientation: alert, oriented to person and oriented to place Oriented to month only Results & Data Results & Data Vital Signs (Past 12 Hours) Vital Signs Temp Pulse Pulse Resp BP Pulse Ox O2 Del Method 11/20/23 07:22 36.6 C 73 16 157/73 H 97 Room Air 11/20/23 04:41 36.7 C 72 18 139/70 99 Room Air 11/19/23 23:28 70 11/19/23 23:23 Room Air 11/19/23 23:10 37.1 C 65 17 114/63 98 Room Air Laboratory Results Abnormal lab results 11/19/23 11/20/23 11/20/23 Range/Units 20:12 08:23 08:25 WBC 4.65 L (4.8-10.8) K/ul RBC 3.40 L (4.20-5.40) M/uL Hgb 8.5 L (12.0-16.0) g/dl Hct 29.1 L (37.0-47.0) % MCHC 29.2 L (32.0-36.0) g/dL RDW Std Deviation 51.2 H (36.4-46.3) fL RDW Coeff of Lili 16.0 H (11.5-14.5) % MPV 9.3 L (9.4-12.4) fL Sodium 132 L (136-145) mmol/L BUN/Creatinine Ratio 32.3 H (10-20) POC Glucose 160 H 176 H (70-99) mg/dl Procalcitonin 0.95 H (0-0.5) ng/ml 11/20/23 Range/Units 12:15 WBC (4.8-10.8) K/ul RBC (4.20-5.40) M/uL Hgb (12.0-16.0) g/dl Hct (37.0-47.0) % MCHC (32.0-36.0) g/dL RDW Std Deviation (36.4-46.3) fL RDW Coeff of Lili (11.5-14.5) % MPV (9.4-12.4) fL Sodium (136-145) mmol/L BUN/Creatinine Ratio (10-20) POC Glucose 101 H (70-99) mg/dl Procalcitonin (0-0.5) ng/ml
[2023-11-20] MEDS: ACETAMINOPHEN 325 MG TAB PO PRN ×2 (12:40→19:17)
[2023-11-20] MEDS: CEFEPIME 2,000 MG in SYRINGE 0 ML IV SCH ×2 (12:40→19:17)
--- NOTE | 2023-11-20 18:46 | Electrocardiogram Report ---
Test Reason : Blood Pressure : / mmHG Vent. Rate : 090 BPM Atrial Rate : 090 BPM P-R Int : 156 ms QRS Dur : 100 ms QT Int : 400 ms P-R-T Axes : 060 -81 043 degrees QTc Int : 489 ms Poor data quality, interpretation may be adversely affected Normal sinus rhythm Left axis deviation Inferior infarct (cited on or before 30-AUG-2019) Possible Anterolateral infarct , age undetermined Abnormal ECG When compared with ECG of 03-SEP-2023 07:37, Borderline criteria for Anterolateral infarct are now Present Confirmed by Georges Elizabeth ([id number]) on 11/20/2023 6:46:24 PM Referred By: [facility] Confirmed By:Georges Elizabeth
[2023-11-20] MEDS: LITHIUM CARBONATE 300 MG TAB PO SCH (21:11)
[2023-11-20] MEDS: MIRTAZAPINE TAB 15 MG TAB PO SCH (21:11)
[2023-11-20] MEDS: LANTUS PER UNIT CHARGE SC SCH (21:11)
[2023-11-20] MEDS: OXYBUTYNIN CHLORIDE XL 5 MG TABCR PO SCH (21:12)
[2023-11-20] MEDS: MELATONIN 3 MG TAB PO SCH (21:12)
[2023-11-20] MEDS: LATANOPROST 0.005% OP SOLN 2.5 ML BTL OP SCH (21:12)
[2023-11-21] MEDS: ACETAMINOPHEN 325 MG TAB PO PRN ×3 (01:58→18:17)
[2023-11-21] MEDS: CEFEPIME 2,000 MG in SYRINGE 0 ML IV SCH ×3 (03:15→18:21)
[2023-11-21] MEDS: LEVOTHYROXINE SODIUM 75 MCG TABLET PO SCH (05:04)
[2023-11-21] MEDS ORDERED: MoRPHine SULFATE 2 MG/ML CARP IV STA (05:08)
[2023-11-21 07:15] LABS: Hematocrit (blood only) 28.6 % (37.0-47.0); Hemoglobin 8.4 g/dl (12.0-16.0); Mean Corpuscular Hemoglobin 24.6 pg (25.0-34.0); Mean Corpuscular Hgb Conc 29.4 g/dL (32.0-36.0); Mean Corpuscular Volume 83.9 fL (80.0-100.0); Mean Platelet Volume 9.7 fL (9.4-12.4); Platelet Count 186 K/uL (130-400); RDW Coefficient of Variation 15.9 % (11.5-14.5); RDW Standard Deviation 48.6 fL (36.4-46.3); Red Blood Count 3.41 M/uL (4.20-5.40); White Blood Count 3.17 K/ul (4.8-10.8)
[2023-11-21 07:18] LABS: BUN Creatinine Ratio 28.1 (10-20); Calcium 8.9 mg/dl (8.6-10.3); Creatinine Clr Calc Pharmacy 71.6 ml/min; Est GFR (African American) 99.8 ml/min; Est GFR (Non-African American) 86.1 ml/min; Potassium 4.8 mmol/L (3.5-5.1)
[2023-11-21] MEDS: POTASSIUM CHLORIDE CRTAB 20 MEQ TABCR PO SCH ×2 (08:17→21:04)
[2023-11-21] MEDS: MAGNESIUM OXIDE 400 MG TAB PO SCH (08:18)
[2023-11-21] MEDS: THIAMINE HCL 100 MG TAB PO SCH (08:18)
[2023-11-21] MEDS: MULTIVITAMIN TAB PO SCH (08:18)
[2023-11-21] MEDS: EZETIMIBE 10 MG TAB PO SCH (08:18)
[2023-11-21] MEDS: GABAPENTIN 100 MG CAP PO SCH (08:18)
[2023-11-21] MEDS: ARIPiprazole 5 MG TAB PO SCH (08:18)
[2023-11-21] MEDS: DULoxetine HCL 60 MG CAP PO SCH (08:18)
[2023-11-21] MEDS: FERROUS SULFATE 325 MG TAB PO SCH (08:18)
[2023-11-21] MEDS: ASCORBIC ACID 500 MG TAB PO SCH (08:18)
[2023-11-21] MEDS: HEPARIN SOD 5,000 UNIT/0.5 ML VIAL SQ SCH ×2 (09:03→21:05)
[2023-11-21] MEDS: INSULIN ASPART PER UNIT CHARGE SC SCH ×4 (09:03→21:05)
[2023-11-21] MEDS: LANTUS PER UNIT CHARGE SC SCH ×2 (09:03→21:05)
--- NOTE | 2023-11-21 11:25 | Hospitalist Progress Note ---
Date of Service November 21, 2023 Assessment & Plan (1) Acute hyperglycemia: (2) Acute dehydration: (3) Hypomagnesemia: (4) Acute metabolic encephalopathy: (5) UTI (urinary tract infection): Plan 78 yr old F who has significant PMH of T2DM insulin dependent, HTN ,HLD, Hypoth yroidism, asthma, cirrhosis, portal HTN, b12 def, radiation proctitis, hx of cervical adenocarcinoma, osteoporosis, epilepsy, STACI, obsessive compulsive disorder, mood disorder, hx of SAH, biploar disorder and PTSD who presents from [facility] 01/01 to hyperglycemia, UTI and worsened mental status. Sepsis UTI GNR bacteremia Encephalopathy likely due to infection Patient presented with worsening mental status UA suggestive of UTI Urine culture in lab growing E coli and Group B strep Blood cultures growing E coli My review of previous cultures showed patient has recurrent UTI and some with bacteremia Completed Abx on recent admission for UTI per discharge summary Had Uro visit on 11/09/23 with cystoscopy Previous Ucx grew E coli. One from 03/2023 was pansensitive. One from 09/2023 has some resistance. I reviewed Abd CT from 10/22/23 Renal USS this admission shows 4.1 cm subtle echogenic focus within the mid to upper pole of the right kidney without corresponding abnormality on recent CT This finding with bacteremia/clinical picture suggests Acute pyelonephritis Urine culture sensitivities reviewed ID recs appreciated. Will follow up ID for final recs Currently on IV cefepime Repeat blood cultures from 11/19/23 negative so far Procalcitonin trended down from 3.22 to 0.95 Had urinary retention Kim placed by Urology Urology recommends continuing kim until outpatient urology follow up Acute hyperglycemia T2DM insulin dependent Per Admitting Provider, daughter was unsure of insulin management at facility HbA1c 8.1 on 10/20/23 Glycemic pharm consulted Lantus/novolog per protocol Hypomagnesemia Mg 1.3 on admission Repleted Mg was 1.8 yesterday Hyponatremia Na was 125 on admission. When corrected for hyperglycemia, Na was 131 Na is 135 today Cirrhosis History of decompensation: none; autoimmune workup negative Last EGD 2022: mild portal gastropathy, no varices Last C-[facility], colonoscopy, non-bleeding colonic angioectasis, limited sigmois diverticulosis, / no specimens collected 12/2022 Ammonia WNL. No asterixis Hx of radiation proctitis Diarrhea Mesalamine reportedly stopped due to patient declining Previously was on hydrocortisone suppository but this was not done at facility Will monitor for now Prior cervical adenocarcinoma s/p radiation Chronic vaginal bleeding Recent cystoscopy 09/03/2023: Severe varicosity throughout bladder neck and urethra with significant inflammation and areas of active bleeding. Epilepsy, tonic-clonic Bipolar disorder Continue gabapentin, lithium, duloxetine and mirtazapine Review of chart/DC summary did not show any change recently [place] level was within normal 1 on admission Hypothyroidism Chronic, stable Continue levothyroxine Patient has chronic anemia Daughter reports she usually get monthly iron infusion Will check Iron levels in AM a PCP: Emil with estefany; Dr. Neri at [facility] DNR/DNI I called daughter and updated her I spent a total of 45 minutes coordinating, documenting and providing care for this patient excluding time spent in performance of separately billed services Admission and Anticipated Discharge Date Admission Date: November 18, 2023 Subjective Patient seen and examined She is alert, oriented to person, place, month and year today She is not confused. Denied any headache, dizziness, fever, chills, nausea, diarrhea Denied chest pain, cough, shortness of breath Reports she had some mild low abd pain last night but none this morning Physical Exam Constitutional: + well hydrated; no acute distress Eyes: PERRL, conjunctivae normal, anicteric sclerae ENMT: external ear and nose normal, oropharynx normal Respiratory: normal respiratory effort, lungs clear to auscultation Cardiovascular: Rate/Rhythm: regular rate and regular rhythm S1 S2 Gastrointestinal (Abdomen): normal bowel sounds, soft, nontender, no hepatosplenomegaly Musculoskeletal: No pedal edema Neurologic: PERRL, EOMI, accommodation nl, no face palsy, no dysarthria Psychiatric: Orientation: alert, oriented to person and oriented to place Oriented to month and year Genitourinary: Kim in situ Results & Data Results & Data Vital Signs (Past 12 Hours) Vital Signs Temp Pulse Pulse Resp BP Pulse Ox O2 Del Method 11/21/23 07:51 36.4 C L 76 99 H 131/68 99 Room Air 11/21/23 04:46 36.5 C 91 H 20 114/68 95 Room Air 11/21/23 00:00 67 Laboratory Results Abnormal lab results 11/20/23 11/20/23 11/21/23 Range/Units 12:15 20:34 06:35 WBC 3.17 L (4.8-10.8) K/ul RBC 3.41 L (4.20-5.40) M/uL Hgb 8.4 L (12.0-16.0) g/dl Hct 28.6 L (37.0-47.0) % MCH 24.6 L (25.0-34.0) pg MCHC 29.4 L (32.0-36.0) g/dL RDW Std Deviation 48.6 H (36.4-46.3) fL RDW Coeff of Lili 15.9 H (11.5-14.5) % Sodium 135 L (136-145) mmol/L Chloride 110 H (98-107) mmol/L BUN/Creatinine Ratio 28.1 H (10-20) POC Glucose 101 H 120 H (70-99) mg/dl
--- NOTE | 2023-11-21 14:23 | Pharmacy Report ---
Pharmacy Glycemic Short Note 2 - Date of Service November 21, 2023 - Glycemic Short BSG Results (Last 24 hours): 11/20/23 11/20/23 11/21/23 17:14 20:34 06:35 Glucose 82 POC Glucose 82 120 H 11/21/23 11/21/23 08:25 12:21 Glucose POC Glucose 92 164 H OUTPATIENT ANTIDIABETIC REGIMEN: * Lantus 40 units SC BID ASSESSMENT: 11/21: * Patient received total of 70 units of insulin yesterday; 50 units basal + 20 units bolus. * Blood sugars at goal, but on lower end, will decrease basal at this time to prevent hypoglycemia. CF/CR loosened at lunch yesterday. 11/19: * Patient received total 121 units of insulin yesterday; 80 units basal + 41 units bolus. * On admission BSG = 407 mg/dl, they trended down to 101 mg/dl this morning which was the fasting BSG today. * Basal was continued at 40 units this AM but scaled back to 20-30 units for HS to prevent hypoglycemia in AM, although patient did require 40-50 units BID last admission in 09/2023 * Pre-lunch BSG = 129 mg/dl today, Novolog parameters slightly loosened at lunch. 11/18/23 * Karla is a 78 YOF admitted for weakness and UTI with a history of T2DM. Pharmacy has been consulted for glycemic management while in patient. She is known the glycemic service and we will dose insulin based on previously successful values * Fasting BSG in 500's this AM, 10 unit IV regular insulin bolus given this AM. BSG check 2 hours later trending downward * Lantus 40 units given with lunch, Novolog initiated at a weight based stress of 3, received 11 units of Novolog with lunch. * Will order previously effective Novolog regimen to start with dinner. * If BSGs remain elevated, may need to start an insulin infusion. PLAN FOR INPATIENT GLYCEMIC CONTROL: * Basal insulin * Lantus 15-25 units SQ BID * Bolus insulin * NovoLog per scale ACHS or Q6hrs while NPO * Goal Range: Low 110 mg/dL - High 140 mg/dL * Correction Factor: 20 mg/dL/unit * Nutritional / Prandial insulin per carb ratio of 1 unit per 8 grams CHO consumed
[2023-11-21] MEDS: LITHIUM CARBONATE 300 MG TAB PO SCH (21:04)
[2023-11-21] MEDS: OXYBUTYNIN CHLORIDE XL 5 MG TABCR PO SCH (21:04)
[2023-11-21] MEDS: MIRTAZAPINE TAB 15 MG TAB PO SCH (21:04)
[2023-11-21] MEDS: MELATONIN 3 MG TAB PO SCH (21:05)
[2023-11-21] MEDS: LATANOPROST 0.005% OP SOLN 2.5 ML BTL OP SCH (21:06)
[2023-11-21] MEDS: MoRPHine SULFATE 2 MG/ML CARP IV PRN (22:12)
[2023-11-22] MEDS: ACETAMINOPHEN 325 MG TAB PO PRN ×4 (03:18→23:42)
[2023-11-22] MEDS: CEFEPIME 2,000 MG in SYRINGE 0 ML IV SCH ×3 (03:18→19:49)
[2023-11-22] MEDS ORDERED: LEVOTHYROXINE SODIUM 100 MCG TABLET PO SCH (05:00)
[2023-11-22 06:38] LABS: Hematocrit (blood only) 28.7 % (37.0-47.0); Hemoglobin 8.6 g/dl (12.0-16.0); Mean Corpuscular Volume 83.4 fL (80.0-100.0); Mean Platelet Volume 9.1 fL (9.4-12.4); Platelet Count 218 K/uL (130-400); RDW Coefficient of Variation 15.8 % (11.5-14.5); RDW Standard Deviation 48.4 fL (36.4-46.3); Red Blood Count 3.44 M/uL (4.20-5.40); White Blood Count 5.52 K/ul (4.8-10.8)
[2023-11-22 07:17] LABS: Calcium 8.7 mg/dl (8.6-10.3); Creatinine Clr Calc Pharmacy 72.7 ml/min; Est GFR (African American) 100.3 ml/min; Est GFR (Non-African American) 86.5 ml/min; Magnesium 1.6 mg/dl (1.7-2.4); Phosphorus 2.9 mg/dl (2.5-4.9); Potassium 4.7 mmol/L (3.5-5.1)
[2023-11-22 07:37] LABS: Ferritin 79.7 ng/ml (8-388)
[2023-11-22] MEDS: LANTUS PER UNIT CHARGE SC SCH ×2 (08:36→21:26)
[2023-11-22] MEDS: POTASSIUM CHLORIDE CRTAB 20 MEQ TABCR PO SCH ×2 (08:37→21:26)
[2023-11-22] MEDS: INSULIN ASPART PER UNIT CHARGE SC SCH ×4 (08:37→21:26)
[2023-11-22] MEDS: ASCORBIC ACID 500 MG TAB PO SCH (08:38)
[2023-11-22] MEDS: FERROUS SULFATE 325 MG TAB PO SCH (08:38)
[2023-11-22] MEDS: THIAMINE HCL 100 MG TAB PO SCH (08:38)
[2023-11-22] MEDS: DULoxetine HCL 60 MG CAP PO SCH (08:38)
[2023-11-22] MEDS: ARIPiprazole 5 MG TAB PO SCH (08:38)
[2023-11-22] MEDS: MULTIVITAMIN TAB PO SCH (08:38)
[2023-11-22] MEDS: MAGNESIUM OXIDE 400 MG TAB PO SCH (08:38)
[2023-11-22] MEDS: GABAPENTIN 100 MG CAP PO SCH (08:38)
[2023-11-22] MEDS: HEPARIN SOD 5,000 UNIT/0.5 ML VIAL SQ SCH ×2 (08:38→21:26)
[2023-11-22] MEDS: EZETIMIBE 10 MG TAB PO SCH (08:38)
--- NOTE | 2023-11-22 09:27 | Hospitalist Progress Note ---
Date of Service November 22, 2023 Assessment & Plan (1) Acute hyperglycemia: (2) Acute dehydration: (3) Hypomagnesemia: (4) Acute metabolic encephalopathy: (5) UTI (urinary tract infection): Plan 78 yr old F who has significant PMH of T2DM insulin dependent, HTN ,HLD, Hypoth yroidism, asthma, cirrhosis, portal HTN, b12 def, radiation proctitis, hx of cervical adenocarcinoma, osteoporosis, epilepsy, STACI, obsessive compulsive disorder, mood disorder, hx of SAH, biploar disorder and PTSD who presents from [facility] 01/01 to hyperglycemia, UTI and worsened mental status. Sepsis UTI GNR bacteremia Encephalopathy likely due to infection Patient presented with worsening mental status UA suggestive of UTI Urine culture in lab growing E coli and Group B strep Blood cultures growing E coli My review of previous cultures showed patient has recurrent UTI and some with bacteremia Completed Abx on recent admission for UTI per discharge summary Had Uro visit on 11/09/23 with cystoscopy Previous Ucx grew E coli. One from 03/2023 was pansensitive. One from 09/2023 has some resistance. I reviewed Abd CT from 10/22/23 Renal USS this admission shows 4.1 cm subtle echogenic focus within the mid to upper pole of the right kidney without corresponding abnormality on recent CT This finding with bacteremia/clinical picture suggests Acute pyelonephritis Urine culture sensitivities reviewed ID recs appreciated. Will follow up ID for final recs Currently on IV cefepime Repeat blood cultures from 11/19/23 negative so far Procalcitonin trended down from 3.22 to 0.95 Had urinary retention Kim placed by Urology Urology recommends continuing kim until outpatient urology follow up Acute hyperglycemia T2DM insulin dependent Per Admitting Provider, daughter was unsure of insulin management at facility HbA1c 8.1 on 10/20/23 Glycemic pharm consulted Lantus/novolog per protocol Hypomagnesemia Mg 1.3 on admission Repleted Mg was 1.6 today Continue po magnesium Hyponatremia Na was 125 on admission. When corrected for hyperglycemia, Na was 131 Na is 134 today Cirrhosis History of decompensation: none; autoimmune workup negative Last EGD 2022: mild portal gastropathy, no varices Last [facility], colonoscopy, non-bleeding colonic angioectasis, limited sigmois diverticulosis, / no specimens collected 12/2022 Ammonia WNL. No asterixis Hx of radiation proctitis Diarrhea Mesalamine reportedly stopped due to patient declining Previously was on hydrocortisone suppository but this was not done at facility Will monitor for now Prior cervical adenocarcinoma s/p radiation Chronic vaginal bleeding Recent cystoscopy 09/03/2023: Severe varicosity throughout bladder neck and urethra with significant inflammation and areas of active bleeding. Epilepsy, tonic-clonic Bipolar disorder Continue gabapentin, lithium, duloxetine and mirtazapine Review of chart/DC summary did not show any change recently [place] level was within normal 1 on admission Hypothyroidism Chronic, stable Continue levothyroxine Patient has chronic anemia Daughter reports she usually get monthly iron infusion Iron level is 15 (low) Ferritin 79 (within limits) IV venofer ordered PCP: Emil allison; Dr. Neri at [facility] DNR/DNI I spent a total of 45 minutes coordinating, documenting and providing care for this patient excluding time spent in performance of separately billed services Admission and Anticipated Discharge Date Admission Date: November 18, 2023 Subjective Patient seen and examined RN noted she reported mild low abd pain earlier. Denied any headache, dizziness, fever, chills, nausea, diarrhea Denied chest pain, cough, shortness of breath No other complaints Physical Exam Constitutional: + well hydrated; no acute distress Eyes: PERRL, conjunctivae normal, anicteric sclerae ENMT: external ear and nose normal, oropharynx normal Respiratory: normal respiratory effort, lungs clear to auscultation Cardiovascular: Rate/Rhythm: regular rate and regular rhythm S1 S2 Gastrointestinal (Abdomen): normal bowel sounds, soft, nontender, no hepatosplenomegaly Musculoskeletal: No pedal edema Neurologic: PERRL, EOMI, accommodation nl, no face palsy, no dysarthria Psychiatric: Orientation: alert, oriented to person, oriented to place and oriented to time Results & Data Results & Data Vital Signs (Past 12 Hours) Vital Signs Temp Pulse Pulse Resp BP Pulse Ox O2 Del Method 11/22/23 07:50 36.6 C 70 16 105/64 99 Room Air 11/22/23 03:43 36.4 C L 82 18 129/70 99 Room Air 11/22/23 00:54 67 11/21/23 23:58 Room Air 11/21/23 23:03 36.4 C L 67 18 150/67 H 99 Room Air Laboratory Results Abnormal lab results 11/21/23 11/21/23 11/22/23 Range/Units 12:21 20:46 05:59 RBC 3.44 L (4.20-5.40) M/uL Hgb 8.6 L (12.0-16.0) g/dl Hct 28.7 L (37.0-47.0) % MCHC 30.0 L (32.0-36.0) g/dL RDW Std Deviation 48.4 H (36.4-46.3) fL RDW Coeff of Lili 15.8 H (11.5-14.5) % MPV 9.1 L (9.4-12.4) fL Sodium 134 L (136-145) mmol/L Chloride 109 H (98-107) mmol/L BUN/Creatinine Ratio 27.0 H (10-20) POC Glucose 164 H 119 H (70-99) mg/dl Magnesium 1.6 L (1.7-2.4) mg/dl Iron 15 L (35-150) mcg/dl
[2023-11-22] MEDS ORDERED: IRON SUCROSE 200 MG in 0.9 % SODIUM CHLORIDE 100 ML IV ONE (12:00)
[2023-11-22] MEDS: MoRPHine SULFATE 2 MG/ML CARP IV PRN (18:03)
[2023-11-22] MEDS: MIRTAZAPINE TAB 15 MG TAB PO SCH (21:26)
[2023-11-22] MEDS: MELATONIN 3 MG TAB PO SCH (21:26)
[2023-11-22] MEDS: OXYBUTYNIN CHLORIDE XL 5 MG TABCR PO SCH (21:26)
[2023-11-22] MEDS: LITHIUM CARBONATE 300 MG TAB PO SCH (21:26)
[2023-11-22] MEDS: LATANOPROST 0.005% OP SOLN 2.5 ML BTL OP SCH (21:27)
[2023-11-23] MEDS: MoRPHine SULFATE 2 MG/ML CARP IV PRN ×4 (01:08→21:20)
[2023-11-23] MEDS: CEFEPIME 2,000 MG in SYRINGE 0 ML IV SCH ×3 (02:57→18:58)
[2023-11-23] MEDS: LEVOTHYROXINE SODIUM 75 MCG TABLET PO SCH (04:39)
[2023-11-23 07:53] LABS: Hemoglobin 8.6 g/dl (12.0-16.0); Mean Corpuscular Hemoglobin 24.9 pg (25.0-34.0); Mean Corpuscular Hgb Conc 28.7 g/dL (32.0-36.0); Mean Platelet Volume 9.2 fL (9.4-12.4); Platelet Count 225 K/uL (130-400); RDW Coefficient of Variation 15.8 % (11.5-14.5); RDW Standard Deviation 50.1 fL (36.4-46.3); Red Blood Count 3.45 M/uL (4.20-5.40); White Blood Count 5.11 K/ul (4.8-10.8)
[2023-11-23 08:12] LABS: BUN Creatinine Ratio 21.1 (10-20); Calcium 8.8 mg/dl (8.6-10.3); Creatinine Clr Calc Pharmacy 80.4 ml/min; Est GFR (African American) 103.6 ml/min; Est GFR (Non-African American) 89.4 ml/min; Magnesium 1.7 mg/dl (1.7-2.4); Phosphorus 2.6 mg/dl (2.5-4.9); Potassium 4.6 mmol/L (3.5-5.1)
[2023-11-23] MEDS: THIAMINE HCL 100 MG TAB PO SCH (08:28)
[2023-11-23] MEDS: HEPARIN SOD 5,000 UNIT/0.5 ML VIAL SQ SCH ×2 (08:28→21:06)
[2023-11-23] MEDS: MULTIVITAMIN TAB PO SCH (08:28)
[2023-11-23] MEDS: EZETIMIBE 10 MG TAB PO SCH (08:29)
[2023-11-23] MEDS: GABAPENTIN 100 MG CAP PO SCH (08:29)
[2023-11-23] MEDS: POTASSIUM CHLORIDE CRTAB 20 MEQ TABCR PO SCH ×2 (08:29→21:06)
[2023-11-23] MEDS: FERROUS SULFATE 325 MG TAB PO SCH (08:29)
[2023-11-23] MEDS: ASCORBIC ACID 500 MG TAB PO SCH (08:29)
[2023-11-23] MEDS: DULoxetine HCL 60 MG CAP PO SCH (08:29)
[2023-11-23] MEDS: ARIPiprazole 5 MG TAB PO SCH (08:30)
[2023-11-23] MEDS: MAGNESIUM OXIDE 400 MG TAB PO SCH (08:30)
[2023-11-23] MEDS: ACETAMINOPHEN 325 MG TAB PO PRN ×2 (08:36→21:20)
[2023-11-23] MEDS: LANTUS PER UNIT CHARGE SC SCH ×2 (08:37→21:20)
[2023-11-23] MEDS: INSULIN ASPART PER UNIT CHARGE SC SCH ×4 (08:38→21:20)
--- NOTE | 2023-11-23 12:25 | Hospitalist Progress Note ---
Date of Service November 23, 2023 Assessment & Plan (1) Acute hyperglycemia: (2) Acute dehydration: (3) Hypomagnesemia: (4) Acute metabolic encephalopathy: (5) UTI (urinary tract infection): Plan 78 yr old F who has significant PMH of T2DM insulin dependent, HTN ,HLD, Hypoth yroidism, asthma, cirrhosis, portal HTN, b12 def, radiation proctitis, hx of cervical adenocarcinoma, osteoporosis, epilepsy, STACI, obsessive compulsive disorder, mood disorder, hx of SAH, biploar disorder and PTSD who presents from [facility] [place] 01/01 to hyperglycemia, UTI and worsened mental status. Sepsis UTI E. coli bacteremia Encephalopathy likely due to infection Patient presented with worsening mental status UA suggestive of UTI Urine culture in lab growing E coli and Group B strep Blood cultures growing E coli My review of previous cultures showed patient has recurrent UTI and some with bacteremia Completed Abx on recent admission for UTI per discharge summary Had Uro visit on 11/09/23 with cystoscopy Previous Ucx grew E coli. One from 03/2023 was pansensitive. One from 09/2023 has some resistance as well as the current urine culture Renal USS this admission shows 4.1 cm subtle echogenic focus within the mid to upper pole of the right kidney without corresponding abnormality on recent CT This finding with bacteremia/clinical picture suggests Acute pyelonephritis Urine culture sensitivities reviewed ID recs appreciated. Will follow up ID for final recs Currently on IV cefepime Repeat blood cultures from 11/19/23 negative so far Procalcitonin trended down from 3.22 to 0.95 Had urinary retention Kim placed by Urology Urology recommends continuing kim until outpatient urology follow up Acute hyperglycemia T2DM insulin dependent Per Admitting Provider, daughter was unsure of insulin management at facility HbA1c 8.1 on 10/20/23 Glycemic pharm consulted Lantus/novolog per protocol Hypomagnesemia Mg 1.3 on admission Repleted Mg was 1.7 today Continue po magnesium Hyponatremia Na was 125 on admission. When corrected for hyperglycemia, Na was 131 Na is 136 today Cirrhosis History of decompensation: none; autoimmune workup negative Last EGD 2022: mild portal gastropathy, no varices Last [facility], colonoscopy, non-bleeding colonic angioectasis, limited sigmois diverticulosis, / no specimens collected 12/2022 Ammonia WNL. No asterixis Hx of radiation proctitis Diarrhea Mesalamine reportedly stopped due to patient declining Previously was on hydrocortisone suppository but this was not done at facility Will monitor for now Prior cervical adenocarcinoma s/p radiation Chronic vaginal bleeding Recent cystoscopy 09/03/2023: Severe varicosity throughout bladder neck and urethra with significant inflammation and areas of active bleeding. Epilepsy, tonic-clonic Bipolar disorder Continue gabapentin, lithium, duloxetine and mirtazapine Review of chart/DC summary did not show any change recently [place] level was within normal 1 on admission Hypothyroidism Chronic, stable Continue levothyroxine Patient has chronic anemia Daughter reported she usually get monthly iron infusion (has not got any this month) Iron level is 15 (low) Ferritin 79 (within limits) Got IV venofer on 11/22/23 PCP: Emil with lizandro Neri at [facility] DNR/DNI Plan to dc back to nursing facility I spent a total of 35 minutes coordinating, documenting and providing care for this patient excluding time spent in performance of separately billed services Admission and Anticipated Discharge Date Admission Date: November 18, 2023 Subjective Patient seen and examined Patient reports feeling good today. No new complaints Physical Exam Constitutional: + well hydrated; no acute distress Eyes: PERRL, conjunctivae normal, anicteric sclerae ENMT: external ear and nose normal, oropharynx normal Respiratory: normal respiratory effort, lungs clear to auscultation Cardiovascular: Rate/Rhythm: regular rate and regular rhythm S1 S2 Gastrointestinal (Abdomen): normal bowel sounds, soft, nontender, no hepatosplenomegaly Musculoskeletal: No pedal edema Neurologic: PERRL, EOMI, accommodation nl, no face palsy, no dysarthria Psychiatric: Orientation: alert, oriented to person, oriented to place and oriented to time Results & Data Results & Data Vital Signs (Past 12 Hours) Vital Signs Temp Pulse Pulse Resp BP BP Pulse Ox 11/23/23 11:43 36.7 C 65 16 122/56 L 99 11/23/23 08:00 11/23/23 07:54 36.5 C 88 16 91/65 L 99 11/23/23 07:37 71 11/23/23 03:51 36.3 C L 66 18 95/62 L 98 O2 Del Method 11/23/23 11:43 Room Air 11/23/23 08:00 Room Air 11/23/23 07:54 Room Air 11/23/23 07:37 11/23/23 03:51 Room Air Laboratory Results Abnormal lab results 11/22/23 11/22/23 11/23/23 Range/Units 17:07 20:49 07:05 RBC 3.45 L (4.20-5.40) M/uL Hgb 8.6 L (12.0-16.0) g/dl Hct 30.0 L (37.0-47.0) % MCH 24.9 L (25.0-34.0) pg MCHC 28.7 L (32.0-36.0) g/dL RDW Std Deviation 50.1 H (36.4-46.3) fL RDW Coeff of Lili 15.8 H (11.5-14.5) % MPV 9.2 L (9.4-12.4) fL Chloride 110 H (98-107) mmol/L Creatinine 0.57 L (0.6-1.2) mg/dl BUN/Creatinine Ratio 21.1 H (10-20) Glucose 109 H (70-99(Fasting)) mg/dl POC Glucose 105 H 143 H (70-99) mg/dl 11/23/23 11/23/23 Range/Units 08:06 12:15 RBC (4.20-5.40) M/uL Hgb (12.0-16.0) g/dl Hct (37.0-47.0) % MCH (25.0-34.0) pg MCHC (32.0-36.0) g/dL RDW Std Deviation (36.4-46.3) fL RDW Coeff of Lili (11.5-14.5) % MPV (9.4-12.4) fL Chloride (98-107) mmol/L Creatinine (0.6-1.2) mg/dl BUN/Creatinine Ratio (10-20) Glucose (70-99(Fasting)) mg/dl POC Glucose 122 H 193 H (70-99) mg/dl
--- NOTE | 2023-11-23 13:45 | Pharmacy Report ---
Pharmacy Glycemic Short Note 2 - Date of Service November 23, 2023 - Glycemic Short BSG Results (Last 24 hours): 11/22/23 11/22/23 11/23/23 17:07 20:49 07:05 Glucose 109 H POC Glucose 105 H 143 H 11/23/23 11/23/23 08:06 12:15 Glucose POC Glucose 122 H 193 H OUTPATIENT ANTIDIABETIC REGIMEN: * Lantus 40 units SC BID ASSESSMENT: 11/23: * Karla received 46 units of insulin yesterday: 35 units basal + 11 units bolus. BSGs were: 77-14-353-143 mg/dL. * Fasting BSG was 122 mg/dL this AM. Basal dose has required a reduction every day since admission. Now that AM fasting is at goal and not trending downward, will continue with current basal regimen. * Carb ratio was tightened this morning. No change to stressors. 11/21: * Patient received total of 70 units of insulin yesterday; 50 units basal + 20 units bolus. * Blood sugars at goal, but on lower end, will decrease basal at this time to prevent hypoglycemia. CF/CR loosened at lunch yesterday. 11/19: * Patient received total 121 units of insulin yesterday; 80 units basal + 41 units bolus. * On admission BSG = 407 mg/dl, they trended down to 101 mg/dl this morning which was the fasting BSG today. * Basal was continued at 40 units this AM but scaled back to 20-30 units for HS to prevent hypoglycemia in AM, although patient did require 40-50 units BID last admission in 09/2023 * Pre-lunch BSG = 129 mg/dl today, Novolog parameters slightly loosened at lunch. 11/18: * Karla is a 78 YOF admitted for weakness and UTI with a history of T2DM. Pharmacy has been consulted for glycemic management while in patient. She is known the glycemic service and we will dose insulin based on previously successful values * Fasting BSG in 500's this AM, 10 unit IV regular insulin bolus given this AM. BSG check 2 hours later trending downward * Lantus 40 units given with lunch, Novolog initiated at a weight based stress of 3, received 11 units of Novolog with lunch. * Will order previously effective Novolog regimen to start with dinner. * If BSGs remain elevated, may need to start an insulin infusion. PLAN FOR INPATIENT GLYCEMIC CONTROL: * Basal insulin * Lantus 20 units SC AM * Lantus 10-20 units SC PM (see eMAR for more details) * Bolus insulin * NovoLog per scale ACHS or Q6hrs while NPO * Goal Range: Low 110 mg/dL - High 140 mg/dL * Correction Factor: 25 mg/dL/unit * Nutritional / Prandial insulin per carb ratio of 1 unit per 8 grams CHO consumed
[2023-11-23] MEDS: LITHIUM CARBONATE 300 MG TAB PO SCH (21:07)
[2023-11-23] MEDS: OXYBUTYNIN CHLORIDE XL 5 MG TABCR PO SCH (21:07)
[2023-11-23] MEDS: LATANOPROST 0.005% OP SOLN 2.5 ML BTL OP SCH (21:07)
[2023-11-23] MEDS: MIRTAZAPINE TAB 15 MG TAB PO SCH (21:08)
[2023-11-23] MEDS: MELATONIN 3 MG TAB PO SCH (21:08)
[2023-11-24] MEDS ORDERED: MICONAZOLE NITRATE POWDER 85 GM EXT PRN (04:25)
[2023-11-24] MEDS: CEFEPIME 2,000 MG in SYRINGE 0 ML IV SCH ×2 (04:35→11:30)
[2023-11-24] MEDS: ACETAMINOPHEN 325 MG TAB PO PRN ×2 (04:35→11:35)
[2023-11-24] MEDS: LEVOTHYROXINE SODIUM 75 MCG TABLET PO SCH (04:36)
[2023-11-24 05:24] VITALS: RESP 18
[2023-11-24 07:26] VITALS: O2SAT 98
[2023-11-24 07:26] LABS: Calcium 8.7 mg/dl (8.6-10.3); Potassium 4.9 mmol/L (3.5-5.1)
[2023-11-24 07:31] LABS: Creatinine Clr Calc Pharmacy 76.4 ml/min; Est GFR (African American) 101.9 ml/min; Est GFR (Non-African American) 87.9 ml/min; Phosphorus 2.3 mg/dl (2.5-4.9)
[2023-11-24] MEDS: ASCORBIC ACID 500 MG TAB PO SCH (08:00)
[2023-11-24] MEDS: MAGNESIUM OXIDE 400 MG TAB PO SCH (08:00)
[2023-11-24 08:01] LABS: Hematocrit (blood only) 29.8 % (37.0-47.0); Hemoglobin 8.6 g/dl (12.0-16.0); Mean Corpuscular Hemoglobin 24.6 pg (25.0-34.0); Mean Corpuscular Hgb Conc 28.9 g/dL (32.0-36.0); Mean Corpuscular Volume 85.4 fL (80.0-100.0); Mean Platelet Volume 8.8 fL (9.4-12.4); Platelet Count 190 K/uL (130-400); RDW Coefficient of Variation 16.1 % (11.5-14.5); RDW Standard Deviation 49.3 fL (36.4-46.3); Red Blood Count 3.49 M/uL (4.20-5.40); White Blood Count 4.66 K/ul (4.8-10.8)
[2023-11-24] MEDS: GABAPENTIN 100 MG CAP PO SCH (08:01)
[2023-11-24] MEDS: THIAMINE HCL 100 MG TAB PO SCH (08:01)
[2023-11-24] MEDS: MULTIVITAMIN TAB PO SCH (08:01)
[2023-11-24] MEDS: ARIPiprazole 5 MG TAB PO SCH (08:01)
[2023-11-24] MEDS: FERROUS SULFATE 325 MG TAB PO SCH (08:01)
[2023-11-24] MEDS: DULoxetine HCL 60 MG CAP PO SCH (08:01)
[2023-11-24] MEDS: HEPARIN SOD 5,000 UNIT/0.5 ML VIAL SQ SCH (08:01)
[2023-11-24] MEDS: POTASSIUM CHLORIDE CRTAB 20 MEQ TABCR PO SCH (08:01)
[2023-11-24] MEDS: EZETIMIBE 10 MG TAB PO SCH (08:01)
[2023-11-24] MEDS: MoRPHine SULFATE 2 MG/ML CARP IV PRN ×2 (08:18→12:55)
[2023-11-24] MEDS: INSULIN ASPART PER UNIT CHARGE SC SCH ×2 (09:12→12:49)
[2023-11-24] MEDS: LANTUS PER UNIT CHARGE SC SCH (09:13)
--- NOTE | 2023-11-24 09:24 | Hospitalist Progress Note ---
Date of Service November 24, 2023 Assessment & Plan (1) Acute hyperglycemia: (2) Acute dehydration: (3) Hypomagnesemia: (4) Acute metabolic encephalopathy: (5) UTI (urinary tract infection): Plan 78 yr old F who has significant PMH of T2DM insulin dependent, HTN ,HLD, Hypoth yroidism, asthma, cirrhosis, portal HTN, b12 def, radiation proctitis, hx of cervical adenocarcinoma, osteoporosis, epilepsy, STACI, obsessive compulsive disorder, mood disorder, hx of SAH, biploar disorder and PTSD who presents from [facility] 01/01 to hyperglycemia, UTI and worsened mental status. Sepsis UTI E. coli bacteremia Encephalopathy likely due to infection Patient presented with worsening mental status UA suggestive of UTI Urine culture in lab growing E coli and Group B strep Blood cultures growing E coli My review of previous cultures showed patient has recurrent UTI and some with bacteremia Completed Abx on recent admission for UTI per discharge summary Had Uro visit on 11/09/23 with cystoscopy Previous Ucx grew E coli. One from 03/2023 was pansensitive. One from 09/2023 has some resistance as well as the current urine culture Renal USS this admission shows 4.1 cm subtle echogenic focus within the mid to upper pole of the right kidney without corresponding abnormality on recent CT This finding with bacteremia/clinical picture suggests Acute pyelonephritis Urine culture sensitivities reviewed ID recs appreciated. Currently on IV cefepime Repeat blood cultures from 11/19/23 negative so far Will follow up with ID about final antibiotics recs. If ID recommends IV, patient already has a port Procalcitonin trended down from 3.22 to 0.95 Had urinary retention Kim placed by Urology Urology recommends continuing kim until outpatient urology follow up Acute hyperglycemia T2DM insulin dependent Per Admitting Provider, daughter was unsure of insulin management at facility HbA1c 8.1 on 10/20/23 Glycemic pharm consulted Lantus/novolog per protocol Hypomagnesemia Mg 1.3 on admission Repleted Awaiting mag today Continue po magnesium Hyponatremia Na was 125 on admission. When corrected for hyperglycemia, Na was 131 Na is 134 today Cirrhosis History of decompensation: none; autoimmune workup negative Last EGD 2022: mild portal gastropathy, no varices Last C-Scope [facility], colonoscopy, non-bleeding colonic angioectasis, limited sigmois diverticulosis, / no specimens collected 12/2022 Ammonia WNL. No asterixis Hx of radiation proctitis Diarrhea Mesalamine reportedly stopped due to patient declining Previously was on hydrocortisone suppository but this was not done at facility Will monitor for now Prior cervical adenocarcinoma s/p radiation Chronic vaginal bleeding Recent cystoscopy 09/03/2023: Severe varicosity throughout bladder neck and urethra with significant inflammation and areas of active bleeding. Epilepsy, tonic-clonic Bipolar disorder Continue gabapentin, lithium, duloxetine and mirtazapine Review of chart/DC summary did not show any change recently [place] level was within normal 1 on admission Hypothyroidism Chronic, stable Continue levothyroxine Patient has chronic anemia Daughter reported she usually get monthly iron infusion (has not got any this month) Iron level is 15 (low) Ferritin 79 (within limits) Got IV venofer on 11/22/23 PCP: Emil with [facility]; Dr. Neri at [facility] DNR/DNI Plan to dc back to nursing facility. Discussed with CM who is awaiting to hear back from facility I spent a total of 35 minutes coordinating, documenting and providing care for this patient excluding time spent in performance of separately billed services Admission and Anticipated Discharge Date Admission Date: November 18, 2023 Subjective Patient seen and examined Reports occasional lower abd pain Denied nausea,vomiting, diarrhea, constipation No new complaints Physical Exam Constitutional: + well hydrated; no acute distress Eyes: PERRL, conjunctivae normal, anicteric sclerae ENMT: external ear and nose normal, oropharynx normal Respiratory: normal respiratory effort, lungs clear to auscultation Cardiovascular: Rate/Rhythm: regular rate and regular rhythm S1 S2 Gastrointestinal (Abdomen): normal bowel sounds, soft, nontender, no hepatosplenomegaly Musculoskeletal: No pedal edema Neurologic: PERRL, EOMI, accommodation nl, no face palsy, no dysarthria Psychiatric: Orientation: alert, oriented to person, oriented to place and oriented to time Results & Data Results & Data Vital Signs (Past 12 Hours) Vital Signs Temp Pulse Pulse Resp BP Pulse Ox O2 Del Method 11/24/23 07:39 63 11/24/23 07:26 36.4 C L 76 18 126/71 98 Room Air 11/24/23 04:45 36.4 C L 76 18 110/61 95 Room Air 11/24/23 00:50 Room Air 11/23/23 23:25 36.5 C 75 16 106/58 L 98 Room Air 12/25/23 23:00 64 Laboratory Results Abnormal lab results 11/23/23 11/23/23 11/24/23 Range/Units 12:15 20:00 06:38 WBC (4.8-10.8) K/ul RBC (4.20-5.40) M/uL Hgb (12.0-16.0) g/dl Hct (37.0-47.0) % MCH (25.0-34.0) pg MCHC (32.0-36.0) g/dL RDW Std Deviation (36.4-46.3) fL RDW Coeff of Lili (11.5-14.5) % MPV (9.4-12.4) fL Sodium 134 L (136-145) mmol/L Chloride 111 H (98-107) mmol/L Carbon Dioxide 19 L (21-32) mmol/L BUN/Creatinine Ratio 25.0 H (10-20) Glucose 144 H (70-99(Fasting)) mg/dl POC Glucose 193 H 193 H (70-99) mg/dl Phosphorus 2.3 L (2.5-4.9) mg/dl 11/24/23 11/24/23 Range/Units 07:37 08:14 WBC 4.66 L (4.8-10.8) K/ul RBC 3.49 L (4.20-5.40) M/uL Hgb 8.6 L (12.0-16.0) g/dl Hct 29.8 L (37.0-47.0) % MCH 24.6 L (25.0-34.0) pg MCHC 28.9 L (32.0-36.0) g/dL RDW Std Deviation 49.3 H (36.4-46.3) fL RDW Coeff of Lili 16.1 H (11.5-14.5) % MPV 8.8 L (9.4-12.4) fL Sodium (136-145) mmol/L Chloride (98-107) mmol/L Carbon Dioxide (21-32) mmol/L BUN/Creatinine Ratio (10-20) Glucose (70-99(Fasting)) mg/dl POC Glucose 161 H (70-99) mg/dl Phosphorus (2.5-4.9) mg/dl
--- NOTE | 2023-11-24 10:37 | Communication Note ---
Date of Service: November 24, 2023 Microbiology: 11/18: Urine culture growing E coli and group B strep 11/18: 3/4 bottles of blood cultures growing E coli 11/19: 2 sets of blood culture NTD 11/19: Urine clean catch culture NTD Assessment & Plan (1) Acute pyelonephritis: (2) E. coli bacteremia: (3) Acute metabolic encephalopathy: (4) penitentiary resident: (5) Cervical cancer: Plan - Please confirm with the patient or family whether the Sulfa allergy is true, because according to allergy profile, it says: Nausea/vomiting. If that's the case, then should be okay to step down Cefepime to oral Bactrim DS BID to complete a 14 day course with anticipated end date of Dec 02, 2023. - If there is still concern about allergy, can deescalate IV cefepime to IV ceftriaxone to complete the course of treatment. - Thank you for consulting ID. We will sign off for now.
[2023-11-24 11:36] VITALS: BP 121/64; TEMP 98.1
[2023-11-24] MEDS ORDERED: SULFAMETHOXAZOLE/TRIMETHOPRIM DS 800/160MG TAB PO ONE (12:15)
--- NOTE | 2023-11-24 14:28 | Discharge Summary ---
Date of Service November 24, 2023 Admission HPI Per Admitting Provider This is a 78 yr old F who has significant PMH of T2DM insulin dependent, HTN ,HLD, Hypothyroidism, asthma, cirrhosis, portal HTN, b12 def, radiation proctitis, hx of cervical adenocarcinoma, osteoporosis, epilepsy, STACI, obsessive compulsive disorder, mood disorder, hx of SAH, biploar disorder and PTSD who presents from [facility] 2/2 to hyperglycemia, UTI and worsened mental status. Daughter at bedside who also helps elicit history. She was recently hospitalized 10/21-10/29 and d/c to [facility]. At that time she was hospitalized for diarrhea with history of radiation proctitis. Endoscopic evaluation was def erred at that time and she was placed on hydrocortisone suppository. She also was treated for acute cystitis with urine culture positive for E. coli in which she completed a course of IV ceftriaxone. She was transitioned to SNF where daughter is very unhappy with care there and her mother has not been receiving some of her treatment. Yesterday patient developed vomiting. They also dx her with UTI at facility and was going to start her on antibiotics; however daughter asked she be transferred to [facility]. It was also reported her BSGS were in the 400- 500s while there. The daughter does not want her to go back to [facility]. In ED patient remained hemodynamically stable. Notable lab abnormalities include H&H 9.5 and 31.6, sodium 127, BUN 44, creatinine 0.98, glucose 520, mag 1.3 and procalcitonin 3.22. Her lithium level was within normal limits. Respiratory panel was negative for COVID, influenza and RSV. Her chest x-ray was negative for any acute abnormality. She was empirically treated with IV Rocephin while in ED. She also received magnesium supplementation and IVF. Admission Exam Per Admitting Provider Exam revealed a confused and weak looking patient, responds to simple questioning, RRR on exam, abdomen NTND. No apparent neurologic deficit however difficult to formally assess given mentation. Principal Diagnosis Sepsis Urinary tract infection E. coli bacteremia Urinary retention Discharge Exam Constitutional + well hydrated; no acute distress Eyes PERRL, conjunctivae normal, anicteric sclerae ENMT external ear and nose normal, oropharynx normal Respiratory normal respiratory effort, lungs clear to auscultation Cardiovascular Rate/Rhythm: regular rate and regular rhythm S1 S2 Gastrointestinal (Abdomen) normal bowel sounds, soft, nontender, no hepatosplenomegaly Musculoskeletal No pedal edema Neurologic PERRL, EOMI, accommodation nl, no face palsy, no dysarthria Psychiatric Orientation: alert, oriented to person, oriented to place and oriented to time Genitourinary Kim in situ Discharge Data Allergies Allergy/AdvReac Type Severity Reaction Status Date / Time divalproex sodium Allergy Severe weakness, Verified 10/20/23 20:36 [From Depakote] ataxia, confusion lidocaine Allergy Severe edema face Verified 10/20/23 20:36 and lips aspirin Allergy Intermediate INTESTINAL Verified 10/20/23 20:36 BLEEDING AND HIVES magnesium citrate Allergy Intermediate HIVES AND Verified 10/20/23 20:36 SWELLING prednisone Allergy Intermediate HIVES; Verified 10/20/23 20:36 TREMORS simethicone Allergy Intermediate Hives/swell Verified 10/20/23 20:36 ing rosiglitazone AdvReac Severe Anemia/swelling/seizure/memory Verified 10/20/23 20:36 loss valproic acid AdvReac Severe weakness/at Verified 10/20/23 20:36 axia/confus ion citalopram AdvReac Intermediate tremors Verified 10/20/23 20:36 clonazepam AdvReac Intermediate Agitated Verified 10/20/23 20:36 metoclopramide AdvReac Intermediate Leg pains Verified 10/20/23 20:36 onion AdvReac Intermediate nausea/vomi Verified 10/20/23 20:36 ting simvastatin AdvReac Intermediate Leg pains Verified 10/20/23 20:36 sulfamethoxazole AdvReac Intermediate Nausea/vomi Verified 10/20/23 20:36 ting trimethoprim AdvReac Intermediate Nausea/vomi Verified 10/20/23 20:36 ting Consultations 11/18/23 11:48 ED Decision to Admit Stat 11/19/23 01:49 Consult Urology Routine 11/19/23 08:02 Consult Infectious Diseases Routine Ordered Studies 11/19/23 03:14 US Renal Bladder [US renal/blad retro comp] Stat Hospital Course (1) Acute hyperglycemia: (2) Acute dehydration: (3) Hypomagnesemia: (4) Acute metabolic encephalopathy: (5) UTI (urinary tract infection): Plan 78 yr old F who has significant PMH of T2DM insulin dependent, HTN ,HLD, Hypothyroidism, asthma, cirrhosis, portal HTN, b12 def, radiation proctitis, hx of cervical adenocarcinoma, osteoporosis, epilepsy, STACI, obsessive compulsive disorder, mood disorder, hx of SAH, biploar disorder and PTSD who presents from [facility] 01/01 to hyperglycemia, UTI and worsened mental status. Sepsis UTI E. coli bacteremia Encephalopathy likely due to infection Patient presented with worsening mental status UA suggestive of UTI Urine culture in lab growing E coli and Group B strep Blood cultures growing E coli My review of previous cultures showed patient has recurrent UTI and some with bacteremia Completed Abx on recent admission for UTI per discharge summary Had Uro visit on 11/09/23 with cystoscopy Previous Ucx grew E coli. One from 03/2023 was pansensitive. One from 09/2023 has some resistance as well as the current urine culture Renal USS this admission shows 4.1 cm subtle echogenic focus within the mid to upper pole of the right kidney without corresponding abnormality on recent CT This finding with bacteremia/clinical picture suggests Acute pyelonephritis Urine culture sensitivities reviewed ID evaluated Patient was treated with IV cefepime Repeat blood cultures from 11/19/23 negative so far Procalcitonin trended down from 3.22 to 0.95 ID (infectious disease) recommends deescalating to po Bactrim DS till 12/02/23 to complete 14 days of antibiotic therapy Patient's home po potassium stopped while on Bactrim. [facility]P can check BMP after completion of antibiotic prior to resuming potassium tablets Had urinary retention Kim placed by Urology Urology recommends continuing kim until outpatient urology follow up Daughter reported she already has appointment with urology Acute hyperglycemia T2DM insulin dependent Per Admitting Provider, daughter was unsure of insulin management at facility HbA1c 8.1 on 10/20/23 Continue home antidiabetic regimen Hypomagnesemia Mg 1.3 on admission Repleted Mag 1.6 today Discharged on po magnesium oxide which was started inpt Hyponatremia Na was 125 on admission. When corrected for hyperglycemia, Na was 131 Na is 134 today Cirrhosis History of decompensation: none; autoimmune workup negative Last EGD 2022: mild portal gastropathy, no varices Last C-Scope [facility], colonoscopy, non-bleeding colonic angioectasis, limited sigmois diverticulosis, / no specimens collected 12/2022 Hx of radiation proctitis Diarrhea Mesalamine reportedly stopped due to patient declining Previously was on hydrocortisone suppository Prior cervical adenocarcinoma s/p radiation Chronic vaginal bleeding Recent cystoscopy 09/03/2023: Severe varicosity throughout bladder neck and urethra with significant inflammation and areas of active bleeding. Epilepsy, tonic-clonic Bipolar disorder Continue gabapentin, lithium, duloxetine and mirtazapine Review of chart/DC summary did not show any change recently [employer] level was within normal at 1 on admission Hypothyroidism Chronic, stable Continue levothyroxine Patient has chronic anemia Daughter reported she usually get monthly iron infusion (has not got any this month) Iron level is 15 (low) Ferritin 79 (within limits) Got IV venofer on 11/22/23 Losartan was stopped while inpatient and BP has remained normal Total Time Total Time Spent Total Time Spent (In Minutes): 50 Total Time Includes: Examination of the Patient, Discharge Planning, Medication Reconciliation and Other (Updated daughter about findings and plan) Discharge Plan Discharge Items Patient Disposition: Transfer Intermediate Fac Reason For Visit: Altered mental status Discharge Diagnosis: Sepsis Urinary tract infection E. coli bacteremia Activity: Resume your previous activity Non-emergency contact: Primary Care Provider and Urologist Call non-emergency contact if: you have any medication questions and your symptoms worsen Follow-up/Referrals: Jose Neri [Primary Care Provider] - Diet: Carb Consistent or DM2 Addtl Attending Provider Instructions: Mrs Janett You were brought to the hospital for confusion You were evaluated and managed for severe urinary tract infection with sepsis and bacteria in the blood. You also had urinary retention and required kim catheter placed by Urologist. You were treated with antibiotics. You are being discharged on oral antibiotics Bactrim twice a day until december 02 2023 Please stop taking your potassium tablets while on the antibiotics. The [facility] can do a blood test called Basic Metabolic Panel to assess your kidney function and check potassium level before resuming tablet potassium. Your losartan was stopped for now due to your blood pressure levels while in the hospital. They will monitor your BP at the facility and if needed may resume some blood pressure medicine. You were started on tab magnesium oxide due to low magnesium levels. Please only use the tramadol sparingly for severe pain not controlled with tylenol You are being discharged with the kim catheter until your follow up with Urology which your daughter reported you already have scheduled. It was a pleasure taking care of you. Pending Studies at Discharge: No Stand-Alone Forms: My [facility] Skilled Items Patient informed of condition?: Yes DNR: No Discharge Level of Care: Skilled Communicable Disease: No Discharge Prognosis: Stable Lines: None Urinary Catheter: Yes Medications and DC Order Prescriptions: New magnesium oxide 400 mg (241.3 mg magnesium) Tablet 400 mg PO QAM Qty: 30 0RF sulfamethoxazole-trimethoprim [Bactrim DS] 800-160 mg Tablet 1 tab PO Q12 Qty: 17 0RF tramadol 50 mg tablet 25 mg PO BID PRN (Reason: severe pain (scale score 7-10)) Qty: 7 0RF Continued loperamide 2 mg Tablet 2 mg PO Q6H PRN (Reason: Diarrhea) thiamine HCl (vitamin B1) [Vitamin B-1] 100 mg tablet 100 mg PO QAM mirtazapine [Remeron] 30 mg tablet 30 mg PO HS Vitron-C 65 mg iron- 125 mg Tablet,Delayed Release (Dr/Ec) 1 tab PO QAM gabapentin 100 mg Capsule 100 mg PO . @0900 aripiprazole 5 mg tablet 5 mg PO QAM duloxetine 60 mg capsule,delayed release(DR/EC) 60 mg PO QAM melatonin 5 mg Tablet 5 mg PO HS phenazopyridine [Pyridium] 200 mg tablet 200 mg PO Q8H PRN (Reason: pain) Qty: 10 0RF multivitamin Tablet 1 tab PO QAM dicyclomine 10 mg Capsule 10 mg PO QID PRN (Reason: abdominal pain) Qty: 20 0RF calcium carbonate [Tums] 200 mg calcium (500 mg) Tablet,Chewable 500 mg PO BID PRN (Reason: dyspepsia) Qty: 20 0RF insulin glargine [Lantus U-100 Insulin] 100 unit/mL Solution 40 unit subcut BID Qty: 10 2RF Rx Instructions: 40 units if BSG below 180 50 units if BSG above 180 oxybutynin chloride 5 mg Tablet Extended Release 24hr 10 mg PO HS 30 Days Qty: 60 0RF acetaminophen 325 mg Tablet 650 mg PO Q6H MDD 3 gm/24hr PRN (Reason: fever > 101) mineral oil Enema 118 ml FL DAILY PRN (Reason: Constipation) Rx Instructions: morning of day 4 of no bm discard any unused portion lithium carbonate 300 mg Capsule 300 mg PO HS bisacodyl [Dulcolax (bisacodyl)] 10 mg Suppository 10 mg FL DAILY PRN (Reason: Constipation) Rx Instructions: evening of 3rd day of no bm albuterol sulfate 90 mcg/actuation Hfa Aerosol Inhaler 2 puff INHALATION Q4H PRN (Reason: sob/wheezing) Saccharomyces boulardii [Probiotic (S.boulardii)] 250 mg Capsule 250 mg PO .0800 Insta-Glucose 1 applic PO DIRECTED PRN (Reason: HYPOGLYCEMIA <60 ) Milk of Magnesia 30 ml PO DAILY PRN (Reason: Constipation) Rx Instructions: morning of 3rd day of no bm glucagon 1 applic IM Q15H PRN (Reason: hypoglycemia <60) sodium chloride 0.9 % 100 ml IV .ONE DAY Rx Instructions: start 11/18/23 1400 hydrocortisone acetate [Anucort-HC] 25 mg suppository 30 mg FL .0900,2100 levothyroxine [Synthroid] 75 mcg tablet 75 mcg PO MOTUWETHFRSA@0500 levothyroxine [Synthroid] 100 mcg tablet 100 mcg PO CAT@0500 acetaminophen [Tylenol] 325 mg Tablet 325 mg PO Q6 PRN (Reason: Pain) cyanocobalamin (vitamin B-12) 1,000 mcg/mL Solution 1,000 mcg IM MONTHLY Rx Instructions: every 30 days ezetimibe [Zetia] 10 mg Tablet 10 mg PO QAM latanoprost (PF) 0.005 % Drops 1 drp OPHTHALMIC (EYE) HS Rx Instructions: Patient states she administers 1 drop in both eyes every night Discontinued ceftriaxone 1 gram Recon Soln 1 g IV . DAILY 7 DAYS Rx Instructions: - losartan 100 mg Tablet 100 mg PO .0800 potassium chloride 20 mEq Tablet Extended Release 20 meq PO BID Discharge Orders: Discharge Order (Routine); Ordered 11/24/23 Ordered By: Liliya Blackwell Admission Data Admit Date/Time: 11/18/23 12:07 Attending Provider: Liliya Blackwell I. Admit Provider: Noemi Smallwood Primary Care Provider: Jose Neri Other Providers: Noemi Smallwood; Byron Melton; Philipp Lema; Brian Clement; Idania Banuelos; Jenaro Stevens; Denisse Jimenez; Bessie Gordon; Guille Zaragoza; Nathalie Briggs; Sathish Cyone; Sha Payne; Salvador Kaur; Giovanni Rico; Favian Holley I.; Ricky High II; Delia Oreilly; Tien Shen; Hakeem Rhodes; Zahraa Valiente Other Interventions: Discharge Summary Assessment (RN) Last Done: 11/24/23 14:45
[2023-11-24 15:15] VITALS: PULSE 69
[2023-11-24] MEDS ORDERED: SULFAMETHOXAZOLE/TRIMETHOPRIM DS 800/160MG TAB PO SCH (21:00)
[2023-11-24] MEDS ORDERED: LANTUS PER UNIT CHARGE SC SCH (21:00)
== END 2023-11-24 16:01 | DRG 871 ==
LOC: ED 09:41 → 2N 12:07 → SUATTDRO 12:07 → 2N 15:41